=== PATIENT | female | born 1950 | race Caucasian/White ===

== ENCOUNTER 2017-07-18 10:48 | Emergency (ER) | payer BC, MEDICARE, OTHER ==
[~2017-07-18] VITALS: Ht 165.1 cm; Wt 54.4 kg
--- OUTSIDE RECORDS SUMMARY | ~2017-07-18 | XMS | Clinical Summary ---
Demographics + + + | Address | [address] | | | [place] [address] | + + + | Home Phone | | + + + | Preferred Language | Unknown | + + + | Marital Status | | + + + | Yarsani Affiliation | Unknown | + + + [...] Team Providers + +------+ + | Care Instructional Coach Name | Role | Phone | + +------+ + PP | Unavailable | + +------+ + Source Comments KARINA is fully live on both [facility] and [facility] InPatient.[facility] Allergies Not on File Current Medications Not [...] | + + + + + | INFLUENZA VACCINE | | | | | (FLU SHOT) | 7 | | | + + + + + Results Not on filefrom Last 3 Months"
--- OUTSIDE RECORDS SUMMARY | ~2017-07-18 | XMS | Clinical Summary ---
Demographics + + + | Address | [address] | | | [place] [address] | + + + | Home Phone | | + + + | Preferred Language | Unknown | + + + | Marital Status | | + + + | Congregation Affiliation | Unknown | + + + [...] Team Providers + +------+ + | Care [place] Dental Lab Technician Name | Role | Phone | + +------+ + PP | Unavailable | + +------+ + Source Comments KARINA is fully live on both [facility] and [facility] Allergies Not on File Current Medications [...]
[~2017-07-18 10:48] MED LIST: ASPIR-LOW81 MG PO; CYMBALTA60 MG PO; HUMALOG MI100 UNITS/ SUB-Q; JANUMET 50-1,01 EACH PO; LEVOTHYROXINE112 MCG PO; LOVASTATIN20 MG PO; MULTIVITAMINS1 EAC7 PO; VITAMIN B COMP1 EACH PO; VITAMIN C1000 M2 PO; VITAMIN D5000 UNIT PO
[2017-07-18] MEDS ORDERED: TOUJEO SOL300 UNIT/1 SUB-Q (11:08)
[2017-07-18] MEDS ORDERED: GLUCOPHAGE XR500 MG PO (11:09)
[2017-07-18] MEDS ORDERED: LOSARTAN POTASS50 MG PO (11:09)
[2017-07-18] MEDS ORDERED: METHYLPREDNISOLO4 M1 PO (13:37)
[2017-07-18] MEDS ORDERED: ZITHROMAX250 MG PO (13:37)
[2017-07-18] MEDS ORDERED: VENTOLIN HFA18 GM INH (13:37)
--- NOTE | 2017-07-18 19:24 | EKG ---
[facility] [address] [facility] [place], [place] [address] Signed Normal sinus rhythm Normal ECG No previous ECGs available Confirmed by SAHRA ABAD MD ([id number]) on 07/18/2017 7:24:03 PM Electronically Signed By: SAHRA ABAD MD 07/18/17 1924 PATIENT NAME: SIMÓN AVILA Electrocardiogram DATE OF : 48 PHYSICIAN: SAHRA ABAD MD REPORT #: [id number] REPORT IS CONFIDENTIAL AND NOT TO BE RELEASED WITHOUT AUTHORIZATION
== END 2017-07-18 13:52 | disposition home or self-care (01) ==
LOC: ED 10:48
DX: J44.1 Chronic obstructive pulmonary disease with (acute) exacerbation (principal); I50.9 Heart failure, unspecified; E11.40 Type 2 diabetes mellitus with diabetic neuropathy, unspecified; E03.9 Hypothyroidism, unspecified; F17.200 Nicotine dependence, unspecified, uncomplicated; Z88.5 Allergy status to narcotic agent; Z79.4 Long term (current) use of insulin; Z79.84 Long term (current) use of oral hypoglycemic drugs; Z79.899 Other long term (current) drug therapy; Z79.82 Long term (current) use of aspirin
CPT/HCPCS: 71045; 80053; 83880; 84484; 85025; 85379; 87502; 93005; 93010; 94640; 96374; 99283; J2930

== ENCOUNTER 2017-11-24 08:25 | Emergency (ER) | payer BC, MEDICARE, OTHER ==
[~2017-11-24] VITALS: Ht 165.1 cm; Wt 54.4 kg
[~2017-11-24 08:25] MED LIST changes: +GLUCOPHAGE XR500 MG PO; +LOSARTAN POTASS50 MG PO; +METHYLPREDNISOLO4 M1 PO; +TOUJEO SOL300 UNIT/1 SUB-Q; +VENTOLIN HFA18 GM INH; +ZITHROMAX250 MG PO
[2017-11-24] MEDS ORDERED: SPIRONOLACTONE25 MG PO (08:45)
[2017-11-24] MEDS ORDERED: HYDROCHLOROTHIA25 MG PO (08:45)
--- NOTE | 2017-11-25 19:49 | EKG ---
[facility] [address] [facility] [place] [address] Signed Normal sinus rhythm Possible Left atrial enlargement Borderline ECG When compared with ECG of 18-JUL-2017 10:55, No significant change was found Confirmed by SAHRA ABAD MD ([id number]) on 11/25/2017 7:49:24 PM Electronically Signed By: SAHRA ABAD MD 11/25/17 1949 PATIENT NAME: SIMÓN AVILA Electrocardiogram DATE OF : 48 PHYSICIAN: SAHRA ABAD MD REPORT #: [id number] REPORT IS CONFIDENTIAL AND NOT TO BE RELEASED WITHOUT AUTHORIZATION
== END 2017-11-24 14:41 | disposition home or self-care (01) ==
LOC: ED 08:25
DX: M25.511 Pain in right shoulder (principal); R07.9 Chest pain, unspecified; I25.10 Atherosclerotic heart disease of native coronary artery without angina pectoris; E11.40 Type 2 diabetes mellitus with diabetic neuropathy, unspecified; Z88.5 Allergy status to narcotic agent; Z79.4 Long term (current) use of insulin; Z79.899 Other long term (current) drug therapy
CPT/HCPCS: 36415; 80053; 84484; 85025; 93005; 93010; 96360; 99285; J7040

== ENCOUNTER 2017-11-28 10:25 | Emergency (ER) | payer MEDICARE, BC, OTHER ==
[~2017-11-28] VITALS: Ht 165.1 cm; Wt 54.4 kg
[~2017-11-28 10:25] MED LIST changes: +HYDROCHLOROTHIA25 MG PO; +SPIRONOLACTONE25 MG PO
[2017-11-28] MEDS ORDERED: ONDANSETRON ODT8 MG PO (15:10)
[2017-11-28] MEDS ORDERED: FLAGYL500 MG PO (15:10)
--- NOTE | 2017-11-29 12:40 | EKG ---
[facility] [address] [facility] [place] [address] Signed Normal sinus rhythm Possible Left atrial enlargement Borderline ECG When compared with ECG of 24-NOV-2017 08:45, No significant change was found Confirmed by SAHRA ABAD MD ([id number]) on 11/29/2017 12:39:47 PM Electronically Signed By: SAHRA ABAD MD 11/29/17 1240 PATIENT NAME: SIMÓN AVILA Electrocardiogram DATE OF : 48 PHYSICIAN: SAHRA ABAD MD REPORT #: [id number] REPORT IS CONFIDENTIAL AND NOT TO BE RELEASED WITHOUT AUTHORIZATION
== END 2017-11-28 17:24 | disposition home or self-care (01) ==
LOC: ED 10:25
DX: K52.9 Noninfective gastroenteritis and colitis, unspecified (principal); E11.40 Type 2 diabetes mellitus with diabetic neuropathy, unspecified; E03.9 Hypothyroidism, unspecified; Z79.4 Long term (current) use of insulin; Z88.5 Allergy status to narcotic agent; Z79.899 Other long term (current) drug therapy; Z79.84 Long term (current) use of oral hypoglycemic drugs; Z79.82 Long term (current) use of aspirin
CPT/HCPCS: 80053; 81001; 84484; 85025; 87493; 93005; 93010; 96361; 96374; 99285; J2405; J7030

== ENCOUNTER 2018-07-15 12:56 | Day surgery (SDC) | payer BC, MEDICARE, OTHER ==
[~2018-07-15 12:56] MED LIST changes: +FLAGYL500 MG PO; +ONDANSETRON ODT8 MG PO
--- NOTE | 2018-07-15 14:55 | NUR ---
07/15/18 1455 Rosalba Savage 1445- PT ARRIVES TO PACU AROUSABLE TO VOICE. PT REPORTS NO PAIN OR NAUSEA. RESP EVEN AND UNLABORED. OXYGEN SAT HIGH 90'S ON 2L VIA NC. 1452- BLOOD SUGAR 99.
--- NOTE | 2018-07-16 09:51 | OR ---
[facility] [address] [place], [place] [address] Signed DATE OF OPERATION: 07/15/2018 SURGEON: Carlos A Falcon MD PREOPERATIVE DIAGNOSES: 1. Episodic dysphagia. 2. Mitral valve insufficiency, anticipating valvuloplasty and other interventions. 3. Smoking. POSTOPERATIVE DIAGNOSES: 1. Normal appearing esophagus and GE junction. 2. Mild duodenitis with friability. PROCEDURE PERFORMED: Esophagogastroduodenoscopy with biopsy. ANESTHESIA: Intravenous sedation, fentanyl 100 mcg, Versed 4 mg. INDICATION: This 67-year-old white woman is known to me from the distant past. She has numerous medical problems including diabetes, hypertension, chronic smoking and mitral valve regurgitation, anticipating a minimally invasive mitral valve repair by Dr. Terry in [place], [place]. She continues to smoke. She is taking Prilosec for clinical complaints of reflux. She has been requested to undergo upper endoscopy prior to any anticipated cardiac operation to rule out neoplasm or other significant pathology. She understands the risks of upper endoscopy including, but not limited to bleeding, infection, and perforation. FINDINGS: There is no sign of lesion of the esophagus to account for dysphagia. Biopsies were obtained to assess for eosinophilic esophagitis, however. The stomach itself was normal. The duodenum had friability but showed no sign of ulceration. CLOtest was -15 minutes post procedure. The flap valve was normal. There was no sign of hiatal hernia. PROCEDURE: The patient was brought to the endoscopy suite and given topical lidocaine spray hypopharyngeal anesthesia. A bite block was placed. She was given intravenous sedation to the point of slurred speech and nystagmus. After satisfactory sedation, the Olympus video upper endoscope was passed in the hypopharynx. The vocal cords appeared normal. Electronically Signed By: CARLOS A FALCON MD 07/16/18 0951 PATIENT NAME: SIMÓN AVILA OPERATIVE REPORT DATE OF : 48 REPORT #: [id number] PHYSICIAN: CARLOS A FALCON MD PCP: AGNIESZKA LUNA PA-C REPORT IS CONFIDENTIAL AND NOT TO BE RELEASED WITHOUT AUTHORIZATION [facility] [address] [place], [place] [address] Signed Scope was advanced to the esophagus, throughout its length it was entirely normal. Scope was passed to the stomach, which was insufflated with air with no sign of bile within the stomach. Gastric secretions appeared normal, motility appeared normal. Rugal folds were normal. The antrum was normal as was the pylorus. The scope was passed through into the duodenum. Various manipulations were used to better characterize the duodenum. There appeared to be friability. A photograph was taken. Biopsies taken of the duodenum as well to assess for celiac disease. The scope was withdrawn to the stomach and biopsies taken of the antrum for both TREMAYNE and pathologic testing. Retroflexed view was undertaken showing a normal flap valve. The scope was straightened, withdrawn and biopsies taken of the normal-appearing distal esophagus. There was no Thomas's epithelium stricture, neoplasm or varices. Careful withdrawal of scope showed the remaining esophagus to be normal as well. Biopsies taken in the midportion to assess for eosinophilic esophagitis, though it is unlikely. The scope was removed. The patient was taken to recovery room in good condition. CONCLUSION DIAGNOSIS: No evidence of esophageal neoplasm or pathology to account for episodic dysphagia. Biopsies pending for the eosinophilic esophagitis (unlikely). PLAN: We recommend continued use of Prilosec for the time being. She will return to the ongoing care of JACK Crews and Dr. Terry, Cardiac Surgeon, [facility]. MD EDGAR Singleton/MODL /[id number] cc: [place] [address] [place], [place] [phone] Electronically Signed By: CARLOS A FALCON MD 07/16/18 0951 PATIENT NAME: SIMÓN AVILA OPERATIVE REPORT DATE OF : 48 REPORT #: [id number] PHYSICIAN: CARLOS A FALCON MD PCP: AGNIESZKA LUNA PA-C REPORT IS CONFIDENTIAL AND NOT TO BE RELEASED WITHOUT AUTHORIZATION [facility] [address] [place], [place] [address] Signed Copies: AGNIESZKA LUNA PA-C ~ Electronically Signed By: CARLOS A FALCON MD 07/16/18 0951 PATIENT NAME: SIMÓN AVILA OPERATIVE REPORT DATE OF : 48 REPORT #: [id number] PHYSICIAN: CARLOS A FALCON MD PCP: AGNIESZKA LUNA PA-C REPORT IS CONFIDENTIAL AND NOT TO BE RELEASED WITHOUT AUTHORIZATION
== END 2018-07-15 15:50 | disposition home or self-care (01) ==
LOC: DS 12:56 → OPS 12:56 → DS 14:00 → OPS 15:50
PROVIDERS: Surgery
PROC: 0DB78ZX Excision of Stomach, Pylorus, Via Natural or Artificial Opening Endoscopic, Diagnostic (ICD-10-PCS; 2018-07-15)
PROC: 0DB28ZX Excision of Middle Esophagus, Via Natural or Artificial Opening Endoscopic, Diagnostic (ICD-10-PCS; 2018-07-15)
PROC: 0DB38ZX Excision of Lower Esophagus, Via Natural or Artificial Opening Endoscopic, Diagnostic (ICD-10-PCS; 2018-07-15)
PROC: 0DB98ZX Excision of Duodenum, Via Natural or Artificial Opening Endoscopic, Diagnostic (ICD-10-PCS; principal; 2018-07-15 14:00)
DX: K29.50 Unspecified chronic gastritis without bleeding (principal); K29.80 Duodenitis without bleeding; I34.0 Nonrheumatic mitral (valve) insufficiency; E11.9 Type 2 diabetes mellitus without complications; I10 Essential (primary) hypertension; K21.9 Gastro-esophageal reflux disease without esophagitis; E03.9 Hypothyroidism, unspecified; G47.30 Sleep apnea, unspecified; F17.200 Nicotine dependence, unspecified, uncomplicated; Z88.5 Allergy status to narcotic agent; Z79.899 Other long term (current) drug therapy; Z98.890 Other specified postprocedural states
CPT/HCPCS: 99153; G0500; J2250; J3010; J7120

== ENCOUNTER 2018-08-24 15:18 | Emergency (ER) | payer BC, MEDICARE, OTHER ==
[~2018-08-24] VITALS: Ht 165.1 cm; Wt 54.4 kg
--- OUTSIDE RECORDS SUMMARY | ~2018-08-24 | XMS | Encounter Summary ---
Demographics + + + | Address | [address] | | | [place] [address] | + + + | Home Phone | | + + + | Preferred Language | Unknown | + + + | Marital Status | Single | + + + | Holiness Affiliation | 1013 | + + + | Race | Unknown | + + + | Ethnic Group | Unknown | + + + Author + + + | Author | [facility] | | | and [place] | + + + | Organization | [facility] | | [...] Team Providers + +------+ + | Care Publicity Manager Name | Role | Phone | + +------+ + | Margie Gonzalez | PCP | Unavailable | + +------+ + Reason for Visit + + + | Reason | Comments | + + + | Medication Refill | | + + + Encounter Details +--------+--------+ + + + | Date | Type | Department | Care Team | Description | +--------+--------+ + + + | 07/17/ | Refill | [facility] | Joseph Aranda | Medication Refill | | 2018 | | PULMONARY [address] | MD [address] | | | | | [place], | [place] | | | | | [place] [address] | [place] [address] | | | | | [phone] | [phone] | | | | | | | | +--------+--------+ + + + Social History + + [...] + +---------+ + | Alcohol Use | Drinks/We | oz/Week | Comments | | | ek | | | + + +---------+ + | No [...]
--- OUTSIDE RECORDS SUMMARY | ~2018-08-24 | XMS | Clinical Summary ---
Demographics + + + | Address | [address] | | | [place] [address] | + + + | Home Phone | | + + + | Preferred Language | Unknown | + + + | Marital Status | | + + + | Lutheran Affiliation | Unknown | + + + | Race | Unknown | + + + | Ethnic Group | Unknown | + + + Author + + + | Author | [facility] | + + + | Organization | [facility] | + + + | Address | Unknown | + + + | Phone | Unavailable | + + + Support + + +---------+ + | Name | Relationship | Address | Phone | + + +---------+ + | Shilpa Couch | ECON | Unknown | | + + +---------+ + Care Team Providers + +------+ + | Care Manager Mission Name | Role | Phone | + +------+ + | Pranav Kinney MD | PP | | + +------+ + Allergies Not on File Current Medications Not on file Active Problems Not on file Social History + +-------+ +--------+------+ | Tobacco [...] on file | | + + + Plan of Treatment Not on file Results Not on filefrom Last 3 Months"
--- OUTSIDE RECORDS SUMMARY | ~2018-08-24 | XMS | Clinical Summary ---
Demographics + + + | Address | [address] | | | [place] [address] | + + + | Home Phone | | + + + | Preferred Language | Unknown | + + + | Marital Status | | + + + | Alevism Affiliation | Unknown | + + + | Race | White | + + + | Ethnic Group | Not or | + + + Author + + + | Author | [facility] | + + + | Organization | [facility] | + + + | Address | Unknown | + + + | Phone | Unavailable | + + + Support + + +---------+ + | Name | Relationship | Address | Phone | + + +---------+ + | NONE,NONE | ECON | Unknown | Unavailable | + + +---------+ + Care Team Providers + +------+ + | Care Corporate Counsel Name | Role | Phone | + +------+ + PP | Unavailable | + +------+ + Source Comments KARINA is fully live on both [facility] Ambulatory and [facility] InPatient.[facility] Allergies Not on File Current Medications Not [...] | + + + Plan of Treatment + + + + + | Health Maintenance | Due Date | Last Done | Comments | + + + + + | Pneumococcal (Adult) | | | | | (1 of 2 - PCV13) | 5 | | | + + + + + | Influenza (Flu) | | | | | vaccination (#1) | 8 | | | + + + + + Results Not on filefrom Last 3 Months"
--- OUTSIDE RECORDS SUMMARY | ~2018-08-24 | XMS | Clinical Summary ---
Demographics + + + | Address | [address] | | | [place] [address] | + + + | Home Phone | | + + + | Preferred Language | Unknown | + + + | Marital Status | Single | + + + | Restorationist Affiliation | 1013 | + + + | Race | Unknown | + + + | Ethnic Group | Unknown | + + + Author + + + | Author | [facility] | | | and [place] | + + + | Organization | [facility] | | | [...] Team Providers + +------+ + | Care Corrugator Helper Name | Role | Phone | + +------+ + | Margie Gonzalez | PP | Unavailable | + +------+ + Allergies + + + + + + | Active Allergy | Reactions | Severity | Noted | Comments | | | | | Date | | + + + + + + | Oxycodone | Itching | Medium | 07/22/19 | Oxycontin | | | | | 14 | intolarant: | | | | | | Oxycodone tolerates. | + + + + + + Medications + + + +---------+------+------+-------+ | Medication | Sig | Dispensed | Refills | Star | End | Statu | | | | | | t | Date | s | | | | | | Date | | | + + + +---------+------+------+-------+ | DULoxetine | Take 60 mg by mouth | | 0 | | | Activ | | (CYMBALTA) 60 MG | Daily. | | | | | e | | capsule | | | | | | | + + + +---------+------+------+-------+ | aspirin 81 mg EC | Take 81 mg by mouth | | 0 | | | Activ | | tablet | Daily. | | | | | e | + + + +---------+------+------+-------+ | Multiple Vitamin | Take 1 tablet by | | 0 | | | Activ | | (MULTI-VITAMIN DAILY | mouth Daily. | | | | | e | | PO) | | | | | | | + + + +---------+------+------+-------+ | omeprazole | Take 20 mg by mouth | | 0 | | | Activ | | (PRILOSEC) 20 mg | every morning | | | | | e | | capsule | (before breakfast). | | | | | | + + + +---------+------+------+-------+ | atorvaSTATin | Take 80 mg by mouth | | 0 | | | Activ | | (LIPITOR) 80 MG | nightly. | | | | | e | | tablet | | | | | | | + + + +---------+------+------+-------+ | losartan (COZAAR) | Take 50 mg by mouth | | 0 | 03/2 | | Activ | | 50 mg tablet | Daily. | | | 12/10 | | e | | | | | | 18 | | | + + + +---------+------+------+-------+ | Insulin Glargine | Inject 40 Units | | 0 | | | Activ | | (TRACIE [place] SC) | under the skin | | | | | e | | | Daily. | | | | | | + + + +---------+------+------+-------+ | metFORMIN | Take 500 mg by mouth | | 0 | | | Activ | | (GLUCOPHAGE) 500 mg | 2 times daily (with | | | | | e | | tablet | breakfast & | | | | | | | | dinner). | | | | | | + + + +---------+------+------+-------+ | ALPRAZolam (XANAX) | Take 0.25 mg by | | 0 | 05/1 | | Activ | | 0.25 mg tablet | mouth as needed. | | | 6/20 | | e | | | | | | 18 | | | + + + +---------+------+------+-------+ | BD ULTRA-FINE | Inject 1 Box under | | 0 | 06/0 | | Activ | | MICRO PEN NEEDLE 32G | the skin every | | | 4/20 | | e | | X 6 MM MISC | evening. | | | 18 | | | + + + +---------+------+------+-------+ | levothyroxine | Take 100 mcg by | | 0 | 05/1 | | Activ | | (SYNTHROID) 100 mcg | mouth Daily. | | | 1/20 | | e | | tablet | | | | 18 | | | + + + +---------+------+------+-------+ | spironolactone | Take 1 tablet by | 30 | 0 | 03/2 | | Activ | | (ALDACTONE) 25 mg | mouth Daily. | tablet | | 7/20 | | e | | tablet | | | | 19 | | | + + + +---------+------+------+-------+ Active Problems + + + | Problem | Noted Date | + + + | Mitral valve regurgitation | 01/08/2018 | + + + + + | Overview: Echo [facility] 12/25/2017: Left ventricle is mildly | | enlarged with LVEDD 61 mm and LVESD 46 mm. There is mild systolic | | dysfunction with LVEF calculated at 47%.Left atrium is | | moderately enlarged. Left atrial appendage is without in situ | | thrombus/clot. Mitral valve is mild to moderately thickened with | | borderline bileafletprolapse and mild annular calcification. | | There is a central jet of severe insufficiency with high degree | | of aliasing. | + + + +---+ | Abnormal heart rate | | + +---+ | Poor circulation | | + +---+ | Hyperlipidemia | | + +---+ | Neuropathy | | + +---+ | Thyroid disease | | + +---+ | Depression | | + +---+ | GERD (gastroesophageal reflux disease) | | + +---+ | Diabetes mellitus | | + +---+ | Migraine | | + +---+ | Seizure | | + +---+ | DDD (degenerative disc disease), cervical | | + +---+ | SOB (shortness of breath) | | + +---+ | Carotid artery stenosis | | + +---+ | Functional murmur | | + +---+ + + | Overview: [facility] 11/13/2017, Proximally occluded dominant RCA | | with mild to moderate diffuse disease of the LAD and a | | significant stenosis in the midportion of the diffusely narrowed | | LCx. There is a right dominant circulation. Normal LV systolic | | function Systemic blood pressure is mildly elevated. There was | | successful Angio Seal placement to the puncture site in the right | | femoral artery. Patient will be seen in further consultation to | | discuss risks versus benefits of attempted revascularization of | | the diffusely diseased LCx. My clinical impression at this point | | is to recommend continued medical therapy. | + + + +---+ | Hypertension | | + +---+ | Osteopenia | | + +---+ | Vitamin D deficiency | | + +---+ Encounters +--------+ + + + + | Date | Type | Specialty | Care Team | Description | +--------+ + + + + | 07/17/ | Refill | | Joseph Aranda | Medication Refill | | 2018 | | | MD Avinash | | +--------+ + + + + | 06/13/ | Telephone | | Bubba Maxwell | LABS | | 2018 | | | MD Yimi | | +--------+ + + + + from Last 3 Months Family History + + +------+ + | Medical History | Relation | Name | Comments | + + +------+ + | Heart disease | Father | | | + + +------+ + | Mental illness | Mother | | | + + +------+ + | Diabetes | Sister | | | + + +------+ + + +------+ + + | Relation | Name | Status | Comments | + +------+ + + | Father | | | heart disease | + +------+ + + | Mother | | | | + +------+ + + | Sister | | Alive | DM1 | + +------+ + + | Sister | | Alive | | + +------+ + + Social History + + + [...] recent travel history available. | + + Last Filed Vital Signs + + + + | Vital Sign | Reading | Time Taken | + + + + | Blood Pressure | 124/70 | 02/14/2018 1254 PDT | + + + + | Pulse | 70 | 02/14/2018 1254 PDT | + + + + | Temperature | 36.8 C (98.2 F) | 01/10/2018 1557 PDT | + + + + | Respiratory Rate | 16 | 02/14/20181253 PDT | + + + + | Oxygen Saturation | 98% | 01/10/2018 1557 PDT | + + + + | Inhaled Oxygen | - | - | | Concentration | | | + + + + | Weight | 52.5 kg (115 lb 11.9 | 02/14/20181253 PDT | | | oz) | | + + + + | Height | 165.1 cm (5' 5") | 02/14/20181253 PDT | + + + + | Body Mass Index | 19.26 | 02/14/20181253 PDT | + + + + Plan of Treatment + + + + + | Health Maintenance | Due Date | Last Done | Comments | + + + + + | Hepatitis C | | | | | Screening | 0 | | | + + + + + | Diabetic Eye Exam | | | | | | 8 | | | + + + + + | Diabetic Foot Exam | | | | | | 8 | | | + + + + + | Vaccine: | | | | | Dtap/Tdap/Td (1 - | 9 | | | | Tdap) | | | | + + + + + | Breast Cancer | | | | | Screening (Ages | 0 | | | | 50-74) | | | | + + + + + | Colorectal Cancer | | | | | Screening | 0 | | | | (Colonoscopy) | | | | + + + + + | Vaccine: Zoster (1 | | | | | of 2) | 0 | | | + + + + + | Lung Cancer | | | | | Screening | 5 | | | + + + + + | Adult Annual | | | | | Wellness Visit | 5 | | | + + + + + | Vaccine: | | | | | Pneumococcal 65+ | 5 | | | | Low/Medium Risk (1 | | | | | of 2 - PCV13) | | | | + + + + + | Hemoglobin A1c | | 06/21/2017, 06/11/2014 | | | Screening | 8 | | | + + + + + | Vaccine: Influenza | | | | | (Season Ended) | 9 | | | + + + + + Results Not on filefrom Last 3 Months Insurance + +--------+ +--------+ +---------+--------+ | Payer | Benefi | Subscriber | Effect | Phone | Address | Type | | | t Plan | ID | efrain | | | | | | / | | Dates | | | | | | Group | | | | | | + +--------+ +--------+ +---------+--------+ | BCBS | BCBS | [id number] | | | | PPO | | | [place]ER[place] | | 017-Pr | | | | | | L FEP | | esent | | | | + +--------+ +--------+ +---------+--------+ | MEDICARE | MEDICA | [id number] | 10/22/19 | [phone] | | Medica | | | RE | | 15-Pre | 5 | | re | | | PART A | | sent | | | | | | AND B | | | | | | + +--------+ +--------+ +---------+--------+ | AETNA SENIOR | AMERIC | [id number] | 04/23/19 | [phone] | | Indemn | | SUPPLEMENTAL INS | AN | | 16-Pre | 7 | | ity | | | CONTIN | | sent | | | | | | ENTAL | | | | | | | | INS CO | | | | | | | | MDCR | | | | | | | | SUPPL | | | | | | + +--------+ +--------+ +---------+--------+ + +--------+ +--------+ + + | Guarantor Name | Accoun | Relation to | Date | Phone | Billing Address | | | t Type | Patient | of | | | | | | | | | | + +--------+ +--------+ + + | Etelvina Benitez | Person | Self [birth year] | [address] | | | al/Fam | | 1951 | [id number] | [address] [place] | | | christian | | | 6 (Home) | [phone] | + +--------+ +--------+ + + Advance Directives Patient has advance care planning documents on file. For more information, please contact:[facility] [place] [address]
--- OUTSIDE RECORDS SUMMARY | ~2018-08-24 | XMS | Clinical Summary ---
Demographics + + + | Address | [address] | | | [place] [address] | + + + | Home Phone | | + + + | Preferred Language | Unknown | + + + | Marital Status | Single | + + + | Adventist Affiliation | 1013 | + + + | Race | Unknown | + + + | Ethnic Group | Unknown | + + + Author + + + | Author | [facility] | | | and [place]ne[place] | + + + | Organization | [facility] | | | [...] Team Providers + +------+ + | Care Receiving Clerk Name | Role | Phone | + [...] | + +---+ + + | Overview: [facility] 11/13/2017, Proximally occluded dominant RCA | | [...] | | t Plan | ID | ferain | | | | | | / | | Dates | | | | | | Group | | | | | | + +--------+ +--------+ +---------+--------+ | BCBS | BCBS | [id number] | | | | PPO | | | [place] | | 017-Pr | | | | | | L FEP | | esent | | | | + +--------+ +--------+ +---------+--------+ | MEDICARE | MEDICA | [id number] | 10/22/19 | [phone] | | Medica | | | RE | | 15-Pre | 5 | | re | | | PART A | | sent | | | | | | AND B | | | | | | + +--------+ +--------+ +---------+--------+ | AETNA SENIOR | AMERIC | [id number] | 04/23/19 | [phone] | | Indemn [...] christian | | | 6 (Home) | [address] | + +--------+ +--------+ + + Advance Directives Patient has advance care planning documents on file. For more information, please contact:[facility] [place] [address]
--- OUTSIDE RECORDS SUMMARY | ~2018-08-24 | XMS | Clinical Summary ---
Demographics + + + | Address | [address] | | | [place] [address] | + + + | Home Phone | | + + + | Preferred Language | Unknown | + + + | Marital Status | | + + + | Faith Affiliation | Unknown | + + + [...] Team Providers + +------+ + | Care Military Pay Technician Name | Role | Phone | + +------+ + PP | Unavailable | + +------+ + Source Comments KARINA is fully live on both [facility] and [facility] In[facility] Allergies Not on File Current Medications [...]
--- OUTSIDE RECORDS SUMMARY | ~2018-08-24 | XMS | Encounter Summary ---
Demographics + + + | Address | [address] | | | [place] [address] | + + + | Home Phone | | + + + | Preferred Language | Unknown | + + + | Marital Status | Single | + + + | Zoroastrian Affiliation | 1013 | + + + | Race | Unknown | + + + | Ethnic Group | Unknown | + + + Author + + + | Author | [facility] | | | and [place]wayne[place] | + + + | Organization | [facility] | | | [...] Team Providers + +------+ + | Care Electronic Drafter Name | Role | Phone | + [...] | 06/13/ | Telephone | [facility] | Maxood, Bubba | LABS | | 2019 | | CARDIOLOGY [address] | MD Yimi [address] | | | | | [place], | [place] | | | | | [place] [address] | [place] [address] | | | | | [phone] | [phone] | | | | | | | [...]
--- OUTSIDE RECORDS SUMMARY | ~2018-08-24 | XMS | Encounter Summary ---
Demographics + + + | Address | [address] | | | [place] [address] | + + + | Home Phone [...] | Organization | [facility] [...] Team Providers + +------+ + | Care Maintenance Instructor Name | Role | Phone | + [...] [address] | | | | | [place], | [address] [place] | | | | | [place] [address] | [place] [address] | | | | | [phone] | | | | | | | [...]
--- OUTSIDE RECORDS SUMMARY | ~2018-08-24 | XMS | Encounter Summary ---
Demographics + + + | Address | [address] | | | [place] [address] | + + + | Home Phone [...] | Organization | [facility] [...] Providers + +------+ + | Care Healthcare Specialist Name | Role | Phone | [...] [address] | | | | | [place], | [place] | | | | | [place] [address] | [place] [address] | | | | | [phone] | [phone] | | | | | | | [...]
--- OUTSIDE RECORDS SUMMARY | ~2018-08-24 | XMS | Clinical Summary ---
Demographics + + + | Address | [address] | | | [place] [address] | + + + | Home Phone | | + + + | Preferred Language | Unknown | + + + | Marital Status | | + + + | Restorationism Affiliation | Unknown | + + + | Race | Unknown | + + + | Ethnic Group | Unknown | + + + Author + + + | Author | [facility] | + + + | Organization | [facility] | + + + | Address | Unknown | + + + | Phone | Unavailable | + + + Support + + +---------+ + | Name | Relationship | Address | Phone | + + +---------+ + | Shilpa Couch | ECON | Unknown | | + + +---------+ + Care Team Providers + +------+ + | Care Dryer Feeder Name | Role | Phone | [...]
[2018-08-24] MEDS ORDERED: IRON 100-VITAM1 EACH PO (15:48)
[2018-08-24] MEDS ORDERED: LIPITOR80 MG GT (15:48)
== END 2018-08-24 16:30 | disposition home or self-care (01) ==
LOC: ED 15:18
DX: S81.801A Unspecified open wound, right lower leg, initial encounter (principal); E11.40 Type 2 diabetes mellitus with diabetic neuropathy, unspecified; E03.9 Hypothyroidism, unspecified; F17.200 Nicotine dependence, unspecified, uncomplicated; Z90.710 Acquired absence of both cervix and uterus; Z88.5 Allergy status to narcotic agent; Z79.4 Long term (current) use of insulin; Z79.899 Other long term (current) drug therapy; X58.XXXA Exposure to other specified factors, initial encounter
CPT/HCPCS: 99282

== ENCOUNTER 2018-10-25 17:43 | Emergency (ER) | payer BC, MEDICARE, OTHER ==
[~2018-10-25] VITALS: Ht 165.1 cm; Wt 48.6 kg
[~2018-10-25 17:43] MED LIST changes: +IRON 100-VITAM1 EACH PO; +LIPITOR80 MG GT
[2018-10-25] MEDS ORDERED: CARVEDILOL12.5 MG PO (19:06)
--- NOTE | 2018-10-27 15:58 | EKG ---
[facility] [address] [facility] [place] [address] Signed Normal sinus rhythm Nonspecific T wave abnormality Abnormal ECG When compared with ECG of 28-NOV-2017 10:38, Questionable change in QRS axis Non-specific change in ST segment in Anterior leads Nonspecific T wave abnormality, worse in Inferior leads Nonspecific T wave abnormality now evident in Lateral leads Confirmed by SAHRA ABAD MD ([id number]) on 10/27/2018 3:58:05 PM Electronically Signed By: SAHRA ABAD MD 10/27/18 1558 PATIENT NAME: SIMÓN AVILA Electrocardiogram DATE OF : 48 PHYSICIAN: SAHRA ABAD MD REPORT #: [id number] REPORT IS CONFIDENTIAL AND NOT TO BE RELEASED WITHOUT AUTHORIZATION
== END 2018-10-25 21:46 | disposition home or self-care (01) ==
LOC: ED 17:43
DX: R42 Dizziness and giddiness (principal); E03.9 Hypothyroidism, unspecified; E11.40 Type 2 diabetes mellitus with diabetic neuropathy, unspecified; F17.200 Nicotine dependence, unspecified, uncomplicated; Z90.710 Acquired absence of both cervix and uterus; Z88.5 Allergy status to narcotic agent; Z79.4 Long term (current) use of insulin; Z79.82 Long term (current) use of aspirin; Z79.899 Other long term (current) drug therapy
CPT/HCPCS: 70450; 71046; 72125; 73560; 80053; 81001; 83735; 84484; 85025; 93005; 93010; 96360; 99284-25; J7030

== ENCOUNTER 2018-12-29 07:53 | Emergency (ER) | payer BC, MEDICARE, OTHER ==
[~2018-12-29] VITALS: Ht 165.1 cm; Wt 48.5 kg
[~2018-12-29 07:53] MED LIST changes: +CARVEDILOL12.5 MG PO
[2018-12-29] MEDS ORDERED: ALPRAZOLAM0.25 MG PO (08:08)
[2018-12-29] MEDS ORDERED: ATORVASTATIN CA10 MG PO (08:09)
--- NOTE | 2018-12-29 12:24 | EKG ---
[facility] [address] [facility] [place] [address] Signed Sinus bradycardia Otherwise normal ECG When compared with ECG of 25-OCT-2018 18:18, Non-specific change in ST segment in Anterior leads Nonspecific T wave abnormality no longer evident in Inferior leads Nonspecific T wave abnormality no longer evident in Lateral leads Confirmed by EZRA DO DO ([id number]) on 12/29/2018 12:24:41 PM Electronically Signed By: EZRA DO DO 12/29/18 1224 PATIENT NAME: SIMÓN AVILA Electrocardiogram DATE OF : 48 PHYSICIAN: EZRA DO DO REPORT #: [id number] REPORT IS CONFIDENTIAL AND NOT TO BE RELEASED WITHOUT AUTHORIZATION
== END 2018-12-29 10:40 | disposition home or self-care (01) ==
LOC: ED 07:53
DX: R10.11 Right upper quadrant pain (principal); E03.9 Hypothyroidism, unspecified; E11.40 Type 2 diabetes mellitus with diabetic neuropathy, unspecified; Z87.891 Personal history of nicotine dependence; Z90.710 Acquired absence of both cervix and uterus; Z88.5 Allergy status to narcotic agent; Z79.4 Long term (current) use of insulin; Z79.82 Long term (current) use of aspirin; Z79.899 Other long term (current) drug therapy
CPT/HCPCS: 76705; 80053; 84484; 85025; 93005; 93010; 99284-25

== ENCOUNTER 2019-03-02 13:28 | Emergency (ER) | payer BC, MEDICARE ==
[~2019-03-02] VITALS: Ht 165.1 cm; Wt 48.5 kg
--- OUTSIDE RECORDS SUMMARY | ~2019-03-02 | XMS | Encounter Summary ---
Demographics + + + | Address | [address] | | | [place] [address] | + + + | Home Phone | | + + + | Preferred Language | Unknown | + + + | Marital Status | Single | + + + | Rastafarian Affiliation | Unknown | + + + | Race | White | + + + | Ethnic Group | Other Race | + + + Author + + + | Author | [facility] | + + + | Organization | [facility] | + + + | Address | Unknown | + + + | Phone | Unavailable | + + + Support + + +---------+ + | Name | Relationship | Address | Phone | + + +---------+ + | Karen Unknown | ECON | Unknown | | + + +---------+ + Care Team Providers + +------+ + | Care Hip Hop Dancer Name | Role | Phone | + +------+ + PCP | Unavailable | + +------+ + Encounter Details +--------+ + + + + | Date | Type | Department | Care Team | Description | +--------+ + + + + | 10/08/ | Results | [facility] [address] | [facility] | | | 1989 | Only | [address] | [phone] | | | | | [place] | | | | | | [address] | | | | | | [phone] | | | +--------+ + + + + Social History + +-------+ +--------+------+ | Tobacco Use | Types | Packs/Day | Years | Date | | | | | Used | | + +-------+ +--------+------+ | Never Assessed | | | | | + +-------+ +--------+------+ + + + | Sex Assigned at | Date Recorded | | | | + + + | Not on file | | + + + + + + + | Job Start Date | Occupation | Industry | + + + + | Not on file | Not on file | Not on file | + + + + + + + + | Travel History | Travel Start | Travel End | + + + + + + | No recent travel history available. | + + documented as of this encounter Plan of Treatment Not on filedocumented as of this encounter Procedures + +--------+ + + + | Procedure Name | Priori | Date/Time | Associated Diagnosis | Comments | | | ty | | | | + +--------+ + + + | SURGICAL PATHOLOGY | Routin | 10/08/1989 | | Results for this | | | e | | | procedure are in the | | | | | | results section. | + +--------+ + + + documented in this encounter Results SURGICAL PATHOLOGY (10/08/1989) + + + + + + | Component | Value | Ref Range | Performed | Pathologist | | | | | At | Signature | + + + + + + | SURGICAL | SOURCE OF SPECIMEN: SEE | | [facility] | | | PATHOLOGY | RESULTS | | DEPARTMENT | | | | Preliminary | | OF | | | | History:CLINICAL | | PATHOLOGY | | | | HISTORYThe patient is a | | | | | | 38 year old female with | | | | | | a right upper lobe mass. | | | | | | Theclinician wishes | | | | | | to rule out infection | | | | | | versus Earl's | | | | | | granulomatosis.A | | | | | | diagnosis of sarcoid was | | | | | | made twenty years ago. | | | | | | GROSS | | | | | | DESCRIPTIONReceived from | | | | | | [facility] | | | | | | [facility], [place], | | | | | | [place] arethree slides | | | | | | bearing outside | | | | | | accession number | | | | | | [id number]. | | | | | | Theaccompanying | | | | | | pathology report is | | | | | | dated 08/17/89. | | | | | | MICROSCOPIC | | | | | | DESCRIPTIONOne long core | | | | | | biopsy and two small | | | | | | fragments of pulmonary | | | | | | tissue areviewed on two | | | | | | slides. All of the | | | | | | pieces of tissue show | | | | | | architecturalalteration | | | | | | with thickening of the | | | | | | alveolar septa. There is | | | | | | aproliferation of type | | | | | | II pneumocytes. Focal | | | | | | early fibrosis is | | | | | | notedwithin the alveolar | | | | | | spaces. A patchy | | | | | | lymphocytic infiltrate | | | | | | is seen. Nogranulomata, | | | | | | tumor or organisms are | | | | | | seen. The cytology smear | | | | | | shows amixture of | | | | | | alveolar lining cells, | | | | | | foamy macrophages and | | | | | | mixedinflammatory cells. | | | | | | No malignant cells are | | | | | | seen.Case dictated by: | | | | | | Iggy Parker M.D., | | | | | | Resident/opal FINAL | | | | | | DIAGNOSISANTERIOR | | | | | | SEGMENT OF RIGHT UPPER | | | | | | LOBE LUNG (NEEDLE | | | | | | BIOPSY): PNEUMONITIS, | | | | | | PREDOMINANTLY | | | | | | INTERSTITIAL WITH FOCAL | | | | | | | | | | | | ORGANIZATIONCYTOLOGY | | | | | | SMEAR: ALVEOLAR LINING | | | | | | CELLS, MACROPHAGES, AND | | | | | | INFLAMMATORY CELLS; | | | | | | NO EVIDENCE OF | | | | | | MALIGNANCY(OUTSIDE CASE) | | | | | | Case reviewed by | | | | | | Luis Felipe Farrar M.D. | | | | | | My electronic | | | | | | signature indicates that | | | | | | I have personally | | | | | | reviewed alldiagnostic | | | | | | slides, the gross and/or | | | | | | microscopic portion of | | | | | | thisreport and | | | | | | formulated the final | | | | | | diagnosis. | | | | + + + + + + + + | Specimen | + + | Other | + + + + + + + | Performing | Address | City/State/Zipcode | Phone Number | | Organization | | | | + + + + + | [facility] | [address] | [place] [address] | | | PATHOLOGY | [address] | | | + + + + + documented in this encounter Visit Diagnoses Not on filedocumented in this encounter"
--- OUTSIDE RECORDS SUMMARY | ~2019-03-02 | XMS | Encounter Summary ---
Demographics + + + | Address | [address] | | | [place] [address] | + + + | Home Phone | | + + + | Preferred Language | Unknown | + + + | Marital Status | Single | + + + | Synagogue Affiliation | 1013 | + + + | Race | Unknown | + + + | Ethnic Group | Unknown | + + + Author + + + | Author | [facility] | | | and [place]way[place] | + + + | Organization | [facility] | | | and [place] | + + + | Address | [...] Providers + +------+ + | Care Cold Press Operator Name | Role | Phone | + +------+ + | Margie Gonzalez | PCP | | + +------+ + Reason for Visit Auth/Cert +--------+--------+ + + + + | Status | Reason | Specialty | Diagnoses / | Referred By | Referred To | | | | | Procedures | Contact | Contact | +--------+--------+ + + + + | | | | Diagnoses | | | | | | | CAD & CHF, | | | | | | | FEMORAL | | | | | | | APPROACH | | | | | | | Procedures | | | | | | | CV LHC | | | +--------+--------+ + + + + Encounter Details +--------+---------+ + + + | Date | Type | Department | Care Team | Description | +--------+---------+ + + + | 11/13/ | Surgery | [facility] | [facility]ba Maxwell | CV [facility] | | 2017 | | MED CTR CV INTRA OP | MD Yimi [address] | | | | | [address] | [place] [facility] | | | | | [place] | [place] [address] | | | | | [address] | [phone] | | | | | [phone] | | | +--------+---------+ + + + [...] + + + | Blood Pressure | 150/73 | 11/13/2017 12:15 PM | | | | | PDT | | + + + + + | Pulse | 79 | 11/13/2017 12:15 PM | | | | | PDT | | + + + + + | Temperature | 36.8 C (98.2 F) | 11/13/2017 8:23 AM | | | | | PDT | | + + + + + | Respiratory Rate | 14 | 11/13/2017 11:25 AM | | | | | PDT | | + + + + + | Oxygen Saturation | 98% | 11/13/2017 12:15 PM | | | | | PDT | | + + + + + | Inhaled Oxygen | - | - | | | Concentration | | | | + + + + + | Weight | 54.1 kg (119 lb 4.3 | 11/13/2017 6:54 AM | | | | oz) | PDT | | + + + + + | Height | 165.1 cm (5' 5") | 11/13/2017 6:54 AM | | | | | PDT | | + + + + + | Body Mass Index | 19.85 | 11/13/2017 6:54 AM | | | | | PDT | | + + + + + documented in this encounter Discharge Instructions Instructions Gisella Ramos RN - 11/13/2017 Recovery After Procedural Sedation (Adult) You have been given medicine by vein to make you sleep during your surgery. This may have i ncluded both a pain medicine and sleeping medicine. Most of the effects have worn off. But y ou may still have some drowsiness for the next 6 to 8 hours. Home care Follow these guidelines when you get home: For the next 8 hours, you should be watched by a responsible adult. This person should m natan sure your condition is not getting worse. Don't drink any alcoholfor the next [address], operate dangerous machinery, or make important business or personal decisio nsduring the next 24 hours. Note: Your healthcare provider may tell you not to take any medicine by mouth for pain or s leep in the next 4 hours. These medicines may react with the medicines you were given in the hospital. This could cause a much stronger response than usual. Follow-up care Follow up with your healthcare provider if you are not alert and back to your usual level o f activity within 12 hours. When to seek medical advice Call your healthcare provider right away if any of these occur: Drowsiness gets worse Weakness or dizziness gets worse Repeated vomiting You can't be awakened Date Last Reviewed: 02/08/201619997448-1390 [employer]. [address] [place], [place] [id number]. All righ ts reserved. This information is not intended as a substitute for professional medical care. Always follow your healthcare professional's instructions. documented in this encounter Medications at Time of Discharge + + + +---------+ + + | Medication | Sig | Dispensed | Refills | Start | End Date | | | | | | Date | | + + + +---------+ + + | ALPRAZolam (XANAX) | Take 0.25 mg by | | 0 | 09/06/19 | | | 0.25 mg tablet | mouth as needed. | | | 18 | | + + + +---------+ + + | aspirin 81 mg EC | Take 81 mg by mouth | | 0 | | | | tablet | Daily. | | | | | + + + +---------+ + + | BD ULTRA-FINE | Inject 1 Box under | | 0 | 09/25/19 | | | MICRO PEN NEEDLE 32G | the skin every | | | 18 | | | X 6 MM MISC | evening. | | | | | + + + +---------+ + + | DULoxetine | Take 60 mg by mouth | | 0 | | | | (CYMBALTA) 60 MG | Daily. | | | | | | capsule | | | | | | + + + +---------+ + + | levothyroxine | Take 100 mcg by | | 0 | 09/01/19 | | | (SYNTHROID) 100 mcg | mouth Daily. | | | 18 | | | tablet | | | | | | + + + +---------+ + + | losartan (COZAAR) | Take 50 mg by mouth | | 0 | 07/19/19 | | | 50 mg tablet | Daily. | | | 18 | | + + + +---------+ + + | metFORMIN | Take 500 mg by mouth | | 0 | | | | (GLUCOPHAGE) 500 mg | 2 times daily (with | | | | | | tablet | breakfast & | | | | | | | dinner). | | | | | + + + +---------+ + + | Multiple Vitamin | Take 1 tablet by | | 0 | | | | (MULTI-VITAMIN DAILY | mouth Daily. | | | | | | PO) | | | | | | + + + +---------+ + + | omeprazole | Take 20 mg by mouth | | 0 | | | | (PRILOSEC) 20 mg | every morning | | | | | | capsule | (before breakfast). | | | | | + + + +---------+ + + | atorvaSTATin | Take 80 mg by mouth | | 0 | | | | (LIPITOR) 80 MG | nightly. | | | | 9 | | tablet | | | | | | + + + +---------+ + + | | Take 25 mg by mouth | | 0 | 11/08/19 | 10/25/201 | | hydroCHLOROthiazide | Daily. | | | 18 | 8 | | 25 mg tablet | | | | | | + + + +---------+ + + | Insulin Glargine | Inject 40 Units | | 0 | | | | (TRACIE [place]) | under the skin | | | | 9 | | | Daily. | | | | | + + + +---------+ + + | spironolactone | Take 25 mg by mouth | | 0 | 11/08/19 | | | (ALDACTONE) 25 mg | Daily. | | | 18 | 8 | | tablet | | | | | | + + + +---------+ + + documented as of this encounter Plan of Treatment Not on filedocumented as of this encounter Procedures + +--------+ + + + | Procedure Name | Priori | Date/Time | Associated Diagnosis | Comments | | | ty | | | | + +--------+ + + + | POC GLUCOSE | Routin | 11/13/2017 | | Results for this | | | e | 10:28 AM | | procedure are in the | | | | PDT | | results section. | + +--------+ + + + | CV LHC | Routin | 11/13/2017 | | Results for this | | | e | 9:16 AM | | procedure are in the | | | | PDT | | results section. | + +--------+ + + + | POC GLUCOSE | Routin | 11/13/2017 | | Results for this | | | e | 7:33 AM | | procedure are in the | | | | PDT | | results section. | + +--------+ + + + documented in this encounter Results POC Glucose (11/13/2017 10:28 AM PDT) + +-------+ + + + | Component | Value | Ref Range | Performed | Pathologist | | | | | At | Signature | + +-------+ + + + | Glucose, | 109 | 70 - 109 mg/dL | [facility] | | | [facility] | | | | | | [facility] | | | | | | [facility] - | | | | | | LABORATORY | | + +-------+ + + + + + | Specimen | + + | Blood | + + + + + + + | Performing | Address | City/State/Zipcode | Phone Number | | Organization | | | | + + + + + | [facility] | [address] | [place] | [phone] | | [facility] | | [address] | | | - LABORATORY | | | | + + + + + CV CARDIAC PROCEDURE (11/13/2017 9:16 AM PDT) + + | Specimen | + + | | + + + + + | Narrative | Performed At | + + + | B[facility] Geller | [facility] | | MD Hans 11/27/2017 14:01 CARDIAC CATHETERIZATION and CORONARY | | | ANGIOGRAPHY PATIENT NAME/: Etelvina Benitez, (1950) | | | OF PROCEDURE: 11/13/2017 | | | CONTAINER PACKER OPERATOR: Bubba Maxwell MD, PhD, [facility] PROCEDURES | | | PERFORMED:Coronary AngiographyLeft Heart CatheterizationLeft | | | Ventriculography Indications: Coronary artery disease DESCRIPTION OF | | | PROCEDURE: Informed consent was obtained from the patient, and a | | | time-out was performed to verify the patient's identification and | | | planned procedure. The patient's right groin was then prepped and | | | draped in the usual sterile fashion, and anesthetized with 1% | | | lidocaine. For arterial access modified Seldinger technique was used | | | to place a 6 Fr. sheath in the right femoral artery.. Right heart | | | catheterization was not performed on this patient. After crossing | | | the aortic valve, left ventriculography was performed in the SUAREZ | | | projection. Selective coronary angiogram was then performed in | | | several sagittal and oblique projections. JL-4, 3DRC and pigtail | | | diagnostic catheters were used for this procedure. The patient | | | received a total of 1 mg of Versed and 75 mcg of fentanyl | | | intravenously for conscious sedation during the procedure. A total | | | of 151 mL Omnipaque 350 contrast was utilized. The procedure had no | | | immediate complications. At the conclusion of the procedure, the | | | sheath was removed and hemostasis obtained with an Angio Seal. | | | Distal pulses were present and unchanged. FINDINGS: Hemodynamics: | | | Ao - 145/62 mm Hg with a mean of 90 to mm HgLV - 155/8 mm HgLVEDP - 20 | | | mm Hg Left ventriculography: The left ventricle is of normal size | | | with mild posterior basal hypokinesis and overall preserved systolic | | | function. LVEF is estimated at 60%. There is severe mitral valve | | | regurgitation noted. Left main artery: The left main artery is a | | | medium caliber vessel that bifurcates into the left anterior | | | descending artery and left circumflex artery. Left main artery has | | | minimal luminal irregularities, but no significant obstructive | | | atherosclerotic disease is seen. Left anterior descending artery: | | | The left anterior descending artery is a small caliber vessel that | | | wraps around the apex and gives rise to 2 diagonal branches. The | | | vessel has moderate diffuse plaquing with no flow-limiting lesions | | | noted. It gives rise to 2 diagonal branches. Left circumflex artery: | | | The left circumflex artery is a medium caliber vessel that is non | | | dominant. The vessel has moderate to severe diffuse disease with a | | | focal 90% lesion in its midportion. It gives rise to 2 OM branches. | | | Right coronary artery: The right coronary artery is a small caliber | | | vessel that is dominant. The vessel has severe disease and is | | | occluded proximally with moderate degree of left to right collateral | | | flow. CONCLUSIONS:1. Proximally occluded dominant RCA with mild | | | to moderate diffuse disease of the LAD and a significant stenosis in | | | the midportion of the diffusely narrowed LCx.2. There is a right | | | dominant circulation.3. Normal LV systolic function with mild | | | posterobasal hypokinesis and severe MR.4. Systemic blood pressure is | | | mildly elevated.5. There was successful Angio Seal placement to the | | | puncture site in the right femoral artery.6. Patient will be seen in | | | further consultation to discuss possible cardiac surgery for mitral | | | valve disease and coronary disease. Moderate sedation start time: | | | 08:40. Moderate sedation stop time: 09:10. IBubba | | | MD Hans, PhD, FACC reviewed the patient's pre-sedation assessment | | | and vital signs, supervised and directed the Moderate Sedation from | | | administration to patient stabilization for recovery. Electronically | | | signed by: Bubba Maxwell MD, PhD, FACC on 11/13/2017 at 13:09 | | | CC TO PRIMARY CARE PROVIDER:JACK Faustin | | |valve regurgitation noted. | | | | | |Left main artery: The left main artery is a medium caliber | | |vessel that bifurcates into the left anterior descending artery | | |and left circumflex artery. Left main artery has minimal luminal | | |irregularities, but no significant obstructive atherosclerotic | | |disease is seen. | | | | | |Left anterior descending artery: The left anterior descending | | |artery is a small caliber vessel that wraps around the apex and | | |gives rise to 2 diagonal branches. The vessel has moderate | | |diffuse plaquing with no flow-limiting lesions noted. It gives | | |rise to 2 diagonal branches. | | | | | |Left circumflex artery: The left circumflex artery is a medium | | |caliber vessel that is non dominant. The vessel has moderate to | | |severe diffuse disease with a focal 90% lesion in its midportion. | | | It gives rise to 2 OM branches. | | | | | |Right coronary artery: The right coronary artery is a small | | |caliber vessel that is dominant. The vessel has severe disease | | |and is occluded proximally with moderate degree of left to right | | |collateral flow. | | | | | | | | |CONCLUSIONS: | | |1. Proximally occluded dominant RCA with mild to moderate diffuse | | |disease of the LAD and a significant stenosis in the midportion | | |of the diffusely narrowed LCx. | | |2. There is a right dominant circulation. | | |3. Normal LV systolic function with mild posterobasal hypokinesis | | |and severe MR. | | |4. Systemic blood pressure is mildly elevated. | | |5. There was successful Angio Seal placement to the puncture site | | |in the right femoral artery. | | |6. Patient will be seen in further consultation to discuss | | |possible cardiac surgery for mitral valve disease and coronary | | |disease. | | | | | | | | |Moderate sedation start time: 08:40. Moderate sedation stop | | |time: 09:10. Bubba Marquez MD, PhD, FACC reviewed the | | |patient's pre-sedation assessment and vital signs, supervised and | | |directed the Moderate Sedation from administration to patient | | |stabilization for recovery. | | | | | | | | | | | | | | | | | |CC TO PRIMARY CARE PROVIDER: | | |JACK Faustin | | | | | + + + + +---------+ + + | Performing | Address | City/State/Zipcode | Phone Number | | Organization | | | | + +---------+ + + | [facility] | | | | + +---------+ + + POC Glucose (11/13/2017 7:33 AM PDT) + +---------+ + + + | Component | Value | Ref Range | Performed | Pathologist | | | | | At | Signature | + +---------+ + + + | Glucose, | 130 (H) | 70 - 109 mg/dL | [facility] | | [facility] | | [facility] | [facility] | | | | | | [facility] - | | | | | | LABORATORY | | + +---------+ + + + + + | Specimen | + + | Blood | + + + + + + + | Performing | Address | City/State/Zipcode | Phone Number | | Organization | | | | + + + + + | [facility] | [address] | [place] | [phone] | | [facility] | | [address] | | | - LABORATORY | | | | + + + + + documented in this encounter Visit Diagnoses Not on filedocumented in this encounter Administered Medications + +--------+---------+------+------+------+ | Medication Order | MAR | Action | Dose | Rate | Site | | | Action | Date | | | | + +--------+---------+------+------+------+ + +---+ | acetaminophen (TYLENOL) tablet | | | 650 mg 650 mg, Oral, EVERY 6 | | | HOURS PRN, Pain, Fever, Starting | | | Sun11/13/17 at 0928, | | | Post-op/Phase II | | + +---+ | | | + +---+ + +-------+ +--------+---+---+ | fentaNYL (PF) injection ONCE | Given | 11/14/19 | 25 mcg | | | | PRN, Starting Sun11/13/17 at | | 18 9:03 | | | | | 0838, Intra-op | | AM PDT | | | | + +-------+ +--------+---+---+ +-------+ +--------+---+---+ | Given | 11/14/19 | 50 mcg | | | | | 18 8:38 | | | | | | AM PDT | | | | +-------+ +--------+---+---+ +---+---+ | | | +---+---+ + +-------+ +---------+---+---+ | iohexol (OMNIPAQUE 350) 350 | Given | 11/14/19 | 151 mLs | | | | mg/mL injection ONCE PRN, | | 18 9:02 | | | | | Starting 11/13/17 at 0902, | | AM PDT | | | | | Intra-op | | | | | | + +-------+ +---------+---+---+ +---+---+ | | | +---+---+ + +-------+ +--------+---+ + | lidocaine 1% injection ONCE | Given | 11/14/19 | 10 mLs | | Surgical | | PRN, Starting 11/13/17 at | | 18 8:40 | | | Site | | 0840, Intra-op | | AM PDT | | | | + +-------+ +--------+---+ + + +---+ | | | + +---+ | lidocaine 1%-EPINEPHrine | | | 1:100,000 injection 5 mL 5 mL, | | | Infiltration, ONCE PRN, for | | | oozing at cardiac cath site, | | | Starting 11/13/17 at 0928, For | | | 1 dose, For continued oozing | | | after sheath removal despite | | | pressure dressing and manual | | | pressure. Inject to affected area | | | x 1 followed by 10 minutes of | | | manual compression., | | | Post-op/Phase II | | + +---+ | | | + +---+ + +-------+ +------+---+---+ | midazolam (VERSED) 1 mg/mL | Given | 11/14/19 | 1 mg | | | | injection ONCE PRN, Starting Tu | | 18 8:38 | | | | | 11/13/17 at 0838, Intra-op | | AM PDT | | | | + +-------+ +------+---+---+ + +---+ | | | + +---+ | nitroglycerin (NITROSTAT) SL | | | tablet 0.4 mg 0.4 mg, | | | Sublingual, EVERY 5 MIN PRN, | | | Chest pain, Starting 11/13/17 | | | at 0928, May give up to 3 doses. | | | Notify physician after 2nd dose | | | given. Hold for SBP<100, | | | Post-op/Phase II | | + +---+ | | | + +---+ | ondansetron (ZOFRAN) injection | | | 4-8 mg 4-8 mg, Intravenous, | | | EVERY 6 HOURS PRN, Nausea, | | | Vomiting, Starting 11/13/17 at | | | 0928, Post-op/Phase II | | + +---+ | | | + +---+ | sodium chloride 0.9% (NS) | | | infusion at 125 mL/hr, | | | Intravenous, CONTINUOUS, Starting | | | 11/13/17 at 0745, For | | | procedure only, not to exceed 1 | | | liter., Pre-op | | + +---+ | | | + +---+ documented in this encounter
--- OUTSIDE RECORDS SUMMARY | ~2019-03-02 | XMS | Encounter Summary ---
Demographics + + + | Address | [address] | | | [place] [address] | + + + | Home Phone | | + + + | Preferred Language | Unknown | + + + | Marital Status | Single | + + + | Worship Affiliation | 1013 | + + + | Race | Unknown | + + + | Ethnic Group | Unknown | + + + Author + + + | Author | [facility] | | | and Dwayneana | + + + | Organization | [facility] | | | and Dwayneana | [...] Team Providers + +------+ + | Care Concrete Stone Fabricating Supervisor Name | Role | Phone | + [...] | | | | | | | belkis | | | | | | | Procedures | | | | | | | CV | | | | | | | ECHO/BELKIS/ICE | | | +--------+--------+ + + + + Encounter Details +--------+---------+ + + + | Date | Type | Department | Care Team | Description | +--------+---------+ + + + | 12/25/ | Surgery | [facility] | Bubba Ornelas | CV ECHO/BELKIS | | 2017 | | MED CTR CV INTRA OP | MD Yimi [address] | | | | | [address] | [address] [place] | | | | | [place] | [place] [address] | | | | | [address] | [phone] | | | | | [phone] | | | +--------+---------+ + + + [...] + + + | Blood Pressure | 122/58 | 12/25/2017 8:00 AM | | | | | PDT | | + + + + + | Pulse | 85 | 12/25/2017 8:00 AM | | | | | PDT | | + + + + + | Temperature | 36.3 C (97.3 F) | 12/25/2017 7:00 AM | | | | | PDT | | + + + + + | Respiratory Rate | 16 | 12/25/2017 6:27 AM | | | | | PDT | | + + + + + | Oxygen Saturation | 96% | 12/25/2017 8:00 AM | | | | | PDT | | + + + + + | Inhaled Oxygen | - | - | | | Concentration | | | | + + + + + | Weight | 50.6 kg (111 lb 8.8 | 12/25/2017 6:27 AM | | | | oz) | PDT | | + + + + + | Height | 165.1 cm (5' 5") | 12/25/2017 6:27 AM | | | | | PDT | | + + + + + | Body Mass Index | 18.56 | 12/25/2017 6:27 AM | | | | | PDT | | + + + + + documented in this encounter Medications at Time of Discharge + + + +---------+ + + | Medication | Sig | Dispensed | Refills | Start | End Date | | | | | | Date | | + + + +---------+ + + | ALPRAZolam (XANAX) | Take 0.25 mg by | | 0 | / | | | 0.25 mg tablet | [...] | 0 | 11/08/19 | | | hydroCHLOROthiazide | Daily. 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 | + +--------+ + + + | CV TTE/BELKIS | Routin | 12/25/2017 | | Results for this | | | e | 7:35 AM | | procedure are in the | | | | PDT | | results section. | + +--------+ + + + | POC GLUCOSE | Routin | 12/25/2017 | | Results for this | | | e | 6:53 AM | | procedure are in the | | | | PDT | | results section. | + +--------+ + + + | ECG 12 LEAD | Routin | 12/25/2017 | | Results for this | | | e | 6:50 AM | | procedure are in the | | | | PDT | | results section. | + +--------+ + + + documented in this encounter Results ECHO Transesophageal (BELKIS) (12/25/2017 7:42 AM PDT) + +--------+ + [...] | + + --+ | | [facility] | | Transesophageal Echocardiography Report (BELKIS) Demographics Patient | | | Name [facility] Room Number [facility] | | | FLIP WIGGINS | | | SHAE Patient Number [id number] Date of Study | | | 12/25/2017 Visit Number [id number] Accession | | | [id number] Interpreting YIMI ORNELAS MD Number | | | Physician Date of 1950 | | | Referring YIMI ORNELAS MD | | | Physician Age 67 | | | year(s) 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 For the actual BELKIS | | result, please review the echo result on the Cardio tab. | + + + + + | Narrative | Performed At | + + + | This report | [facility] | | was auto-finalized due to the BELKIS being performed in this invasive | | | lab. For the actual BELKIS result, please review the echo result on the | | | Cardio tab. | | + + + + +---------+ + + | Performing | Address | City/State/Zipcode | Phone Number | | Organization | | | | + +---------+ + + | [facility] | | | | + +---------+ + + POC Glucose (12/25/2017 6:53 AM PDT) + +---------+ + + + | Component | Value | Ref Range | Performed | Pathologist | | | | | At | Signature | + +---------+ + + + | Glucose, | 144 (H) | 70 - 109 mg/dL | [...] [address] | [place] | [phone] | | [facility] | | [id number] | | | - LABORATORY | | | | + + + + + ECG 12 lead (12/25/2017 6:50 AM PDT) + + + + + + | Component | Value | Ref Range | Performed | Pathologist | | | | | At | Signature | + + + + + + | VENTRICULAR | 73 | BPM | [facility] | | | RATE EKG | | | | | + + + + + + | ATRIAL RATE | 73 | BPM | [facility] | | + + + + + + | P-R | 144 | ms | [facility] | | | INTERVAL | | | | | + + + + + + | QRS | 90 | ms | [facility] | | | DURATION | | | | | + + + + + + | Q-T | 422 | ms | [facility] | | | INTERVAL | | | | | + + + + + + | Q-T | 464 | ms | [facility] | | | INTERVAL | | | | | | (CORRECTED) | | | | | + + + + + + | P WAVE AXIS | 67 | degrees | [facility] | | + + + + + + | QRS AXIS | 77 | degrees | [facility] | | + + + + + + | T AXIS | 53 | degrees | [facility] | | + + + + + + | INTERPRETAT | Normal sinus | | [facility] | | | ION TEXT | rhythmNormal ECGWhen | | | | | | compared with ECG of | | | | | | 13-AUG-2017 | | | | | | 13:25,Nonspecific T wave | | | | | | abnormality no longer | | | | | | evident in Inferior | | | | | | leadsConfirmed by | | | | | | FERNANDO EASTMAN MD ([id number]) | | | | | | on 12/26/2017 7:04:22 AM | | | | + + + + + + + + | Specimen | + + | | + + + + + | Narrative | Performed At | + + + | | | + + + + +---------+ + + | Performing | Address | City/State/Zipcode | Phone Number | | Organization | | | | + +---------+ + + | [facility] | | | | + +---------+ + + documented in this encounter Visit Diagnoses Not on filedocumented in this encounter Administered Medications + +--------+ +---------+------+------+ | Medication Order | MAR | Action | Dose | Rate | Site | | | Action | Date | | | | + +--------+ +---------+------+------+ | benzocaine (HURRICAINE) 20% | Given | 12/26/19 | 1 spray | | | | non-aerosol spray ONCE PRN, | | 18 7:08 | | | | | Starting 12/25/17 at 0708, | | AM PDT | | | | | Intra-op | | | | | | + +--------+ +---------+------+------+ +---+---+ | | | +---+---+ + +-------+ +--------+---+---+ | fentaNYL (PF) injection ONCE | Given | 12/26/19 | 50 mcg | | | | PRN, Starting e 12/25/17 at 0714, | | 18 7:14 | | | | | Intra-op | | AM PDT | | | | + +-------+ +--------+---+---+ +---+---+ | | | +---+---+ + +-------+ +--------+---+---+ | lidocaine (XYLOCAINE) 2% | Given | 12/26/19 | 10 mLs | | | | viscous solution ONCE PRN, | | 18 7:08 | | | | | Starting 12/25/17 at 0708, | | AM PDT | | | | | Intra-op | | | | | | + +-------+ +--------+---+---+ +---+---+ | | | +---+---+ + +-------+ +------+---+---+ | midazolam (VERSED) 1 mg/mL | Given | 12/26/19 | 1 mg | | | | injection ONCE PRN, Starting Tue | | 18 7:20 | | | | | 12/25/17 at 0714, Intra-op | | AM PDT | | | | + +-------+ +------+---+---+ +-------+ +------+---+---+ | Given | 12/26/19 | 1 mg | | | | | 18 7:14 | | | | | | AM PDT | | | | +-------+ +------+---+---+ +---+---+ | | | +---+---+ + +---------+ +---+-------+---+ | sodium chloride 0.9% (NS) | New Bag | 12/26/19 | | 125 | | | infusion at 125 mL/hr, | | 18 6:54 | | mL/hr | | | Intravenous, CONTINUOUS, Starting | | AM PDT | | | | | 12/25/17 at 0645, For | | | | | | | procedure only, not to exceed 1 | | | | | | | liter., Pre-op | | | | | | + +---------+ +---+-------+---+ +---+---+ | | | +---+---+ documented in this encounter
--- OUTSIDE RECORDS SUMMARY | ~2019-03-02 | XMS | Encounter Summary ---
Demographics + + + | Address | [address] | | | [place] [address] | + + + | Home Phone | | + + + | Preferred Language | Unknown | + + + | Marital Status | Single | + + + | Jewish Affiliation | 1013 | + + + | Race | Unknown | + + + | Ethnic Group | Unknown | + + + Author + + + | Author | [facility] | | | and Dwayneana | + + + | Organization | [facility] | | | and Dwayneana [...] Team Providers + +------+ + | Care Road Commissioner Name | Role | Phone | + +------+ + | Matt Kinney MD | PCP | | + +------+ + Encounter Details +--------+ + + + + | Date | Type | Department | Care Team | Description | +--------+ + + + + | 08/14/ | Orders Only | [facility] | Javon Ivy | Lumbar radiculopathy | | 2013 | | PHYSIATRY [address] | (Primary Dx) | | | | [place], | [place], [place] | | | | | [place] [address] | [address] | | | | | [phone] | | | +--------+ + + + [...] on filedocumented as of this encounter Results FL EZEKIEL Lumbar Transforaminal (08/26/2013 4:06 PM PDT) + + | Specimen | + + | | + + + + + | Narrative | Performed At | + + + | 08/26/13 Right L4-L5 and Left L5-K7Szjoknmjgibitk Epidural Steroid | [facility] | | Injections Diagnosis: Lumbar radiculopathy ICD-9 Code 724.4 | [facility] | | Etelvina Benitez presents to the fluoroscopy suite for | [facility] | | fluoroscopically-guided right L4-L5 and left L5-S1 transforaminal | - IMAGING | | epidural steroid injections as part of conservative management for | | | chronic pain with lumbar radiculopathy and degenerative disk | | | disease. After informed consent was obtained, the patient lay in the | | | prone position on the fluoroscopy table. The areas were identified | | | under fluoroscopic guidance. The areas were prepped and draped in | | | sterile fashion. A 25-gauge, 1.5-inch needle was inserted into each | | | region and approximately 3 mL of buffered 1% lidocaine was infused. | | | Then, a 22-gauge spinal needle was inserted into the posterior | | | superior transforaminal space bilaterally and advanced into the | | | epidural space under fluoroscopic guidance. Confirmation into the | | | epidural space was obtained with infusion of approximately 1 mL of | | | Omnipaque contrast which showed epidural flow as well as nerve sheath | | | flow. Then, a combination of 2 mL of 1% lidocaine and 2 mL of 6 | | | mg/mL Celestone was infused, divided between the two sides. The | | | patient tolerated the procedure well without complications. Pre- and | | | post-procedure blood pressures were stable. The patient was given | | | verbal as well as written follow-up instructions. Prior to the | | | start of the procedure, the following were performed and/or | | | verified, including correct patient identity, correct site/side marked | | | and visible, agreement on the procedure to be done, correct patient | | | positioning and an accurate procedure consent form. Any safety | | | precautions based on clinical history and/or medication use have | | | been addressed. I personally performed the procedure above. | | | Estimated blood loss: Minimal Complications: None Findings: As | | | expected Anesthesia: Local 1% Lidocaine | | + + + + + | Procedure Note | + + | Javon Ivy MD - 08/26/2013 4:43 PM PDT 08/26/13Right L4-L5 and Left | | L5-U6Zbnjwzhipyrihv Epidural Steroid InjectionsDiagnosis: Lumbar radiculopathyICD-9 Code | | 724.4Deborah Cheyenne Pulse presents to the fluoroscopy suite for fluoroscopically-guided | | right L4-L5 and left L5-S1 transforaminal epidural steroid injections as part of | | conservative management for chronic pain with lumbar radiculopathy and degenerative disk | | disease. After informed consent was obtained, the patient lay in the prone position on | | the fluoroscopy table. The areas were identified under fluoroscopic guidance. The areas | | were prepped and draped in sterile fashion. A 25-gauge, 1.5-inch needle was inserted | | into each region and approximately 3 mL of buffered 1% lidocaine was infused. Then, a | | 22-gauge spinal needle was inserted into the posterior superior transforaminal space | | bilaterally and advanced into the epidural space under fluoroscopic guidance. | | Confirmation into the epidural space was obtained with infusion of approximately 1 mL of | | Omnipaque contrast which showed epidural flow as well as nerve sheath flow. Then, a | | combination of 2 mL of 1% lidocaine and 2 mL of 6 mg/mL Celestone was infused, divided | | between the two sides. The patient tolerated the procedure well without complications. | | Pre- and post-procedure blood pressures were stable. The patient was given verbal as | | well as written follow-up instructions. Prior to the start of the procedure, the | | following were performed and/or verified, including correct patient identity, correct | | site/side marked and visible, agreement on the procedure to be done, correct patient | | positioning and an accurate procedure consent form. Any safety precautions based on | | clinical history and/or medication use have been addressed. I personally performed the | | procedure above.Estimated blood loss: MinimalComplications: NoneFindings: As | | expectedAnesthesia: Local 1% Lidocaine | + + + + + + + | Performing | Address | City/State/[facility] | Phone Number | | Organization | | | | + + + + + | [facility] | [address] | [place], [place] | [phone] | | [facility] | | [address] | | | - IMAGING | | | | + + + + + documented in this encounter Visit Diagnoses + + | Diagnosis | + + | Lumbar radiculopathy - Primary Thoracic or lumbosacral neuritis or radiculitis, | | unspecified | + + documented in this encounter"
--- OUTSIDE RECORDS SUMMARY | ~2019-03-02 | XMS | Encounter Summary ---
Demographics + + + | Address | [address] | | | [place] [address] | + + + | Home Phone | | + + + | Preferred Language | Unknown | + + + | Marital Status | Single | + + + | Islam Affiliation | 1013 | + + + | Race | Unknown | + + + | Ethnic Group | Unknown | + + + Author + + + | Author | [facility] | | | and Dwayneana | + + + | Organization | [facility] | | | and Dwayneana [...] Team Providers + +------+ + | Care Car Filler Name | Role | Phone | + [...] | | | | | | CAD | | | | | | | Procedures | | | | | | | PA CATH | | | | | | | PLACE/CORON | | | | | | | ANGIO, IMG | | | | | | | SUPER/INTERP | | | | | | | ,W LEFT | | | | | | | HEART | | | | | | | VENTRICULOGR | | | | | | | APHY CV | | | | | | | DIAGNOSTIC | | | | | | | CARDIAC CATH | | | +--------+--------+ + + + + Encounter Details +--------+ + + + + | Date | Type | Department | Care Team | Description | +--------+ + + + + | 07/28/ | Hospital | [facility] | Bubba Maxwell | Coronary artery | | 2014 | Encounter | MED CTR CV INTRA OP | MD Yimi [address] | disease involving | | | | [address] [place] | elem coronary | | | | [place], [place] | [place] [address] | artery without | | | | [address] | [phone] | angina pectoris | | | | [phone] | | (Primary Dx); CAD | | | | | | (coronary artery | | | | | | disease) | +--------+ + + + + Social History + + + +--------+------+ | Tobacco Use | Types | Packs/Day | Years | Date | | | | | Used | | + + + +--------+------+ | Current Every Day | Cigarettes | 1.5 | 37 | | | [...] + + + | Blood Pressure | 130/66 | 07/28/2014 12:00 PM | | | | | PDT | | + + + + + | Pulse | 74 | 07/28/2014 12:00 PM | | | | | PDT | | + + + + + | Temperature | 36.2 C (97.2 F) | 07/28/2014 7:49 AM | | | | | PDT | | + + + + + | Respiratory Rate | 20 | 07/28/2014 12:00 PM | | | | | PDT | | + + + + + | Oxygen Saturation | 97% | 07/28/2014 12:00 PM | | | | | PDT | | + + + + + | Inhaled Oxygen | - | - | | | Concentration | | | | + + + + + | Weight | 70.8 kg (156 lb) | 07/28/2014 7:49 AM | | | | | PDT | | + + + + + | Height | 165.1 cm (5' 5") | 07/28/2014 7:49 AM | | | | | PDT | | + + + + + | Body Mass Index | 25.96 | 07/28/2014 7:49 AM | | | | | PDT | | + + + + + documented in this encounter Discharge Instructions Instructions Etelvina Galan RN - 07/28/2014 Coronary Angiography Angiography is a special type of X-ray that allows your coronary arteries to be viewed and recorded on film. Your doctor can see if the blood vessels to your heart are clogged. Before the Procedure Tell your doctor what medicines you take and any allergies you may have. Don t eat or drink anything after midnight, the night before the procedure. During the Procedure A long, thin tube called a catheter is placed inside an artery in your groin or arm and guided into your heart. A contrast dye is injected through the catheter into your blood vessels or heart chamber s. X-rays are taken to to show clear photos of the inside of your heart and coronary arteri es. After the Procedure Your doctor or nurse will tell you how long to lie down and keep the insertion site stil l. If the insertion site was in your groin, you may need to lie down with your leg still fo r several hours. A nurse will check your blood pressure and the insertion site. You may be asked to drink fluid to help flush the contrast liquid out of your system. Have someone drive you home from the hospital. It s normal to find a small bruise or lump at the insertion site. These common side ef fects should disappear within a few weeks. Call Your Health Care Provider Contact your health care provider if: You have angina (chest pain). The insertion site has pain, swelling, redness, bleeding, or drainage. You have severe pain, coldness, or a bluish color in the leg or arm that held the cathet er. You experience blood in your urine, black or tarry stools, or any other kind of bleeding . You have a fever over 101F (38.3C). [id number] [employer]. [address] [place] [address], [place] [address]. All righ ts reserved. This information is [...] + + documented as of this encounter Progress Notes Etelvina Galan RN - 07/28/2014 9:46 AM PDTRt groin site without bleeding, swelling o r drainage, dressing clean, dry and intact documented in this encounter Plan of Treatment Not on filedocumented as of this encounter Procedures + +--------+ + + + | Procedure Name | Priori | Date/Time | Associated Diagnosis | Comments | | | ty | | | | + +--------+ + + + | CV DIAGNOSTIC | Routin | 07/28/2014 | CAD (coronary | Results for this | | CARDIAC CATH | e | 9:31 AM | artery disease) | procedure are in the | | | | PDT | | results section. | + +--------+ + + + | CV DIAGNOSTIC | | 07/28/2014 | CAD | | | CARDIAC CATH | | 8:30 AM | | | | | | PDT | | | + +--------+ + + + | BASIC METABOLIC | Routin | 07/28/2014 | | Results for this | | PANEL | e | 8:20 AM | | procedure are in the | | | | PDT | | results section. | + +--------+ + + + | POC GLUCOSE | Routin | 07/28/2014 | | Results for this | | | e | 8:13 AM | | procedure are in the | | | | PDT | | results section. | + +--------+ + + + documented in this encounter Results CV Adult Cardiac Cath Diag/PCI (07/28/2014 9:31 AM PDT) + + | Specimen | + + | | + + + + + | Narrative | Performed At | + + + | Bubba Maxwell MD 07/28/2014 14:50 CARDIAC | [facility] | | CATHETERIZATION and CORONARY ANGIOGRAPHY PATIENT NAME/: | [facility] | | Etelvina Benitez, (1950) MEDICAL RECORD NUMBER: | MEDICAL CENTER | | [id number] DATE OF PROCEDURE: 07/28/2014 [employer]: | - IMAGING | | Bubba Maxwell MD, PhD, [facility] PROCEDURES | | | PERFORMED: Coronary Angiography Left Heart Catheterization Left | | | Ventriculography Indications: Coronary artery disease | | | DESCRIPTION OF PROCEDURE: Informed consent was obtained from the | | | patient, and a time-out was performed to verify the patient's | | | identification and planned procedure. The patient's right groin | | | was then prepped and draped in the usual sterile fashion, and | | | anesthetized with 1% lidocaine. For arterial access modified | | | Seldinger technique was used to place a 6 Fr. sheath in the right | | | femoral artery.. Right heart catheterization was not performed on | | | this patient. After crossing the aortic valve, left | | | ventriculography was performed in the SUAREZ projection. Selective | | | coronary angiogram was then performed in several sagittal and | | | oblique projections. JL-4, JR-4 and pigtail diagnostic catheters | | | were used for this procedure. The patient received a total of 1 mg | | | of Versed and 50 mcg of fentanyl intravenously for conscious | | | sedation during the procedure. A total of 85 mL Omnipaque 350 | | | contrast was utilized. The procedure had no immediate | | | complications. At the conclusion of the procedure, the sheath | | | was removed and hemostasis obtained with a TR hemostatic band. | | | FINDINGS: Hemodynamics: Ao - 145/54 mm Hg with a mean of 91 | | | mm Hg LV - 145/0 mm Hg LVEDP - 6 mm Hg Left ventriculography: | | | The left ventricular size and function were normal. LVEF is | | | calculated at 60%. There is no mitral valve regurgitation noted. | | | Left main artery: The left main artery is a small caliber vessel | | | that bifurcates into the left anterior descending artery and left | | | circumflex artery. Left main artery has mild diffuse disease. | | | Left anterior descending artery: The left anterior descending | | | artery is a small caliber vessel that wraps around the apex and | | | gives rise to 2 diagonal branches. The vessel has moderate diffuse | | | plaquing. It gives rise to 2 diagonal branches. Left circumflex | | | artery: The left circumflex artery is a small caliber vessel that | | | is non dominant. The vessel has exhibits moderate to severe | | | diffuse disease, with a focal 90% lesion at its midpoint.. It | | | gives rise to 2 OM branches. Right coronary artery: The right | | | coronary artery is a small caliber vessel that is non dominant. | | | The vessel has occlusion proximally with moderate left to right | | | collateral flow.. CONCLUSIONS: 1. Proximally | | | occluded dominant RCA, with moderate diffuse disease of the LAD and | | | LCx. 2. There is a right dominant circulation. 3. Normal LV systolic | | | function. 4. Systemic blood pressure is mildly elevated. 5. There | | | was successful Angio Seal placement to the puncture site in the | | | right femoral artery. 6. Will consider patient for possibility of | | | surgical revascularization. Otherwise continued medical therapy | | | and aggressive risk factor reduction recommended. | | | at | | | 13:58 CC TO PRIMARY CARE PROVIDER: Matt Kinney | | + + + + + + + + | Performing | Address | City/State/Zipcode | Phone Number | | Organization | | | | + + + + + | [facility] | [address] | [place], [place] | [phone] | | [facility] | | [id number] | | | - IMAGING | | | | + + + + + Basic Metabolic Panel (07/28/2014 8:20 AM PDT) + + + + + + | Component | Value | Ref Range | Performed | Pathologist | | | | | At | Signature | + + + + + + | Na | 140 | 136 - 149 | [facility] | | | | | mmol/L | [facility] | | | | | | MEDICAL | | | | | | CENTER - | | | | | | LABORATORY | | + + + + + + | K | 4.4 | 3.5 - 5.1 | [facility] | | | | | mmol/L | [facility] | | | | | | MEDICAL | | | | | | CENTER - | | | | | | LABORATORY | | + + + + + + | Cl | 106 | 98 - 109 mmol/L | [facility] | | | | | | [facility] | | | | | | MEDICAL | | | | | | CENTER - | | | | | | LABORATORY | | + + + + + + | CO2 | 24 | 24 - 31 mmol/L | [facility] | | | | | | [facility] | | | | | | MEDICAL | | | | | | CENTER - | | | | | | LABORATORY | | + + + + + + | Anion Gap | 10 | 3 - 16 mmol/L | [facility] | | | | | | [facility] | | | | | | MEDICAL | | | | | | CENTER - | | | | | | LABORATORY | | + + + + + + | Glucose | 121 (H) | 70 - 109 mg/dL | [facility] | | | | | | [facility] | | | | | | MEDICAL | | | | | | CENTER - | | | | | | LABORATORY | | + + + + + + | BUN | 13 | 7 - 18 mg/dL | [facility] | | | | | | [facility] | | | | | | MEDICAL | | | | | | CENTER - | | | | | | LABORATORY | | + + + + + + | Creatinine | 1.05 | 0.60 - 1.30 | [facility] | | | | | mg/dL | [facility] | | | | | | MEDICAL | | | | | | CENTER - | | | | | | LABORATORY | | + + + + + + | eGFR if not | 53 (L)Comment: | >=60 | [facility] | | | SEAN | GLOMERULAR FILTRATION | mL/min/1.73m2 | [facility] | | | ICELANDIC | RATE,ESTIMATED | | MEDICAL | | | | mL/min/1.76o4Cnxx than | | CENTER - | | | | 60 Chronic kidney | | LABORATORY | | | | disease,if found over a | | | | | | 3-month period.Less than | | | | | | 15 Kidney failureFor | | | | | | | | | | | | Americans,multiply the | | | | | | calculated GFR by 1.21. | | | | | | | | | | + + + + + + | Calcium | 9.2 | 8.3 - 10.5 | [facility] | | | | | mg/dL | [facility] | | | | | | MEDICAL | | | | | | CENTER - | | | | | | LABORATORY | | + + + + + + | BUN/Creatin | 12.4 | | [facility] | | | ine Ratio | | | [facility] | | | | | | MEDICAL | | | | | | CENTER - | | | | | | LABORATORY | | + + + + + + + + | Specimen | + + | Blood | + + + + + + + | Performing | Address | City/State/Zipcode | Phone Number | | Organization | | | | + + + + + | [facility] | [address] | [place], [place] | [phone] | | [facility] | | [address] | | | - LABORATORY | | | | + + + + + POC Glucose (07/28/2014 8:13 AM PDT) + +-------+ + + + | Component | Value | Ref Range | Performed | Pathologist | | | | | At | Signature | + +-------+ + + + | Glucose, | 123 | 70 - 150 mg/dL | [facility] | | | POC [...] + + + + + | [facility] | [address] | [place] | [phone] | | [facility] | | [address] | | | - LABORATORY | | | | + + + + + documented in this encounter Visit Diagnoses + + | Diagnosis | + + | Coronary artery disease involving elem coronary artery without angina pectoris - | | Primary | + + | CAD (coronary artery disease) Coronary atherosclerosis of unspecified type of vessel, | | elem or graft | + + documented in this encounter Administered Medications + +--------+ +--------+------+------+ | Medication Order | MAR | Action | Dose | Rate | Site | | | Action | Date | | | | + +--------+ +--------+------+------+ | fentaNYL injection PRN, | Given | 07/29/19 | 50 mcg | | | | Starting 07/28/14 at 0858 | | 15 8:58 | | | | | | | AM PDT | | | | + +--------+ +--------+------+------+ +---+---+ | | | +---+---+ + +-------+ +--------+---+---+ | iohexol (OMNIPAQUE 350) 350 | Given | 07/29/19 | 85 mLs | | | | mg/mL injection Intravenous, | | 15 9:23 | | | | | PRN, Starting 07/28/14 at 0923 | | AM PDT | | | | + +-------+ +--------+---+---+ +---+---+ | | | +---+---+ + +-------+ +------+---+---+ | midazolam (VERSED) 1 mg/mL | Given | 07/29/19 | 1 mg | | | | injection PRN, Starting Tue | | 15 8:58 | | | | | 07/28/14 at 0858 | | AM PDT | | | | + +-------+ +------+---+---+ +---+---+ | | | +---+---+ + +---------+ +--------+-------+ + | sodium chloride 0.9% (NS) | New Bag | 07/29/19 | 1,000 | 125 | Left Arm | | infusion at 125 mL/hr, | | 15 8:29 | mLs | mL/hr | | | Intravenous, FIXED VOLUME (see | | AM PDT | | | | | admin instruction), Starting Tue | | | | | | | 07/28/14 at 0815, For 8 hours, For | | | | | | | procedure only, not to exceed 1 | | | | | | | liter., Pre-op | | | | | | + +---------+ +--------+-------+ + +---+---+ | | | +---+---+ documented in this encounter
--- OUTSIDE RECORDS SUMMARY | ~2019-03-02 | XMS | Encounter Summary ---
Demographics + + + | Address | [address] | | | [place] [address] | + + + | Home Phone | | + + + | Preferred Language | Unknown | + + + | Marital Status | Single | + + + | Protestant Affiliation | 1013 | + + + | Race | Unknown | + + + | Ethnic Group | Unknown | + + + Author + + + | Author | [facility] | | | and Dwayneana | + + + | Organization | [facility] | | | and Dwayneana | [...] Team Providers + +------+ + | Care Film Composer Name | Role | Phone | + +------+ + | Margie Gonzalez | PCP | | + +------+ + Reason for Visit Evaluate & Treat (Routine) +--------+ + + + + + | Status | Reason | Specialty | Diagnoses / | Referred By | Referred To | | | | | Procedures | Contact | Contact | +--------+ + + + + + | Closed | Specialty | Pulmonary | Diagnoses | Hans, | [facility] | | | Services | Disease / | Chronic | Bubba | Pulmonary | | | Required | Pulmonology | obstructive | MD Yimi | [address] | | | | | pulmonary | [address] | [place], | | | | | disease, | [place] | [place] | | | | | unspecified | [place], [place] | [address] | | | | | COPD type | [address] | Phone: | | | | | ([facility]) | Phone: | [phone] | | | | | | [phone] | Fax: | | | | | | Fax: | [phone] | | | | | | [phone] | | +--------+ + + + + + Encounter Details +--------+---------+ + + + | Date | Type | Department | Care Team | Description | +--------+---------+ + + + | 10/30/ | Office | [facility] | Joseph Aranda | Acute combined | | 2018 | Visit | PULMONARY [address] | MD A[address] | systolic and | | | | [place], | [place] | diastolic CHF, NYHA | | | | [place] [address] | [place] [address] | class 2 (HCC) | | | | [phone] | [phone] | (Primary Dx); | | | | | | Tobacco dependence; | | | | | | Dyspnea, unspecified | | | | | | type | +--------+---------+ + + + Social History [...] | | | + +---+---+---+ + + | Tobacco Cessation: Ready to Quit: No; Counseling Given: Yes | + + + + +---------+ + | Alcohol Use [...] + + + | Blood Pressure | 158/90 | 10/30/2017 1:26 PM | | | | | PDT | | + + + + + | Pulse | 85 | 10/30/2017 1:26 PM | | | | | PDT | | + + + + + | Temperature | 36.5 C (97.7 F) | 10/30/2017 1:26 PM | | | | | PDT | | + + + + + | Respiratory Rate | - | - | | + + + + + | Oxygen Saturation | 97% | 10/30/2017 1:26 PM | | | | | PDT | | + + + + + | Inhaled Oxygen | - | - | | | Concentration | | | | + + + + + | Weight | 57.4 kg (126 lb 8.7 | 10/30/2017 1:26 PM | | | | oz) | PDT | | + + + + + | Height | 165.1 cm (5' 5") | 10/30/2017 1:26 PM | | | | | PDT | | + + + + + | Body Mass Index | 21.06 | 10/30/2017 1:26 PM | | | | | PDT | | + + + + + documented in this encounter Plan of Treatment Not on filedocumented as of this encounter Results Pulmonary function test full PFT (01/11/2018 10:57 AM PDT) + + + | Narrative | Performed At | + + + | [facility] | | | MD Manoj 01/11/2018 10:59 PULMONARY FUNCTION TESTING | | | SPIROMETRY: The FVC was 2.81 L or 92 % of predicted. The FEV1 was 2.35 | | | L or 101 % of predicted. FEV1/FVC ratio was 84 %. LUNG VOLUMES: The | | | total lung capacity was 5.04 L or 97 % of predicted. The residual | | | volume was 2.17 L or 99 % of predicted. RV/TLC ratio was 101 % of | | | predicted. DIFFUSION CAPACITY: The diffusion capacity was 13.0 | | | mL/mmHg per minute or 54 % of predicted. IMPRESSION: Spirometry is | | | consistent with normal physiology on optimized medication. Lung volume | | | testing is consistent with normal physiology. Diffusion capacity is | | | moderately reduced and is not corrected for measured hemoglobin. Test | | | performed: She understood instructions and cooperated well, | | | spirometry was acceptable and reproducible.Electronically signed by: | | | Joseph Aranda MD 01/11/2018 10:57[facility] | | | CENTER | | |IMPRESSION: Spirometry is consistent with normal physiology on | | |optimized medication. Lung volume testing is consistent with | | |normal physiology. Diffusion capacity is moderately reduced and | | |is not corrected for measured hemoglobin. | | | | | |Test performed: She understood instructions and cooperated well, | | |spirometry was acceptable and reproducible. | | |Electronically signed by: Joseph Aranda MD 01/11/2018 10:57 | | |[facility] | | | | | + + + documented in this encounter Visit Diagnoses + + | Diagnosis | + + | Acute combined systolic and diastolic CHF, NYHA class 2 (HCC) - Primary | + + | Tobacco dependence Tobacco use disorder | + + | Dyspnea, unspecified type | + + documented in this encounter
--- OUTSIDE RECORDS SUMMARY | ~2019-03-02 | XMS | Encounter Summary ---
Demographics + + + | Address | [address] | | | [place] [address] | + + + | Home Phone | | + + + | Preferred Language | Unknown | + + + | Marital Status | Single | + + + | Jain Affiliation | 1013 | + + + | Race | Unknown | + + + | Ethnic Group | Unknown | + + + Author + + + | Author | [facility] | | | and Dwayneana | + + + | Organization | [facility] | | | and [...] Team Providers + +------+ + | Care Slice Cutting Machine Operator Name | Role | Phone | + +------+ + | Matt Kinney MD | PCP | | + +------+ + Reason for Visit Service/Procedure (Routine) +--------+--------+ + + + + | Status | Reason | Specialty | Diagnoses / | Referred By | Referred To | | | | | Procedures | Contact | Contact | +--------+--------+ + + + + | Closed | | Radiology | Diagnoses | | [facility] | | | | | Lumbar | [place], | [address] | | | | | radiculopath | Javon Bautista MD | [place], | | | | | y | [address] | [place] | | | | | Procedures | [place] | [address] | | | | | [place] INJECT | [place] | Phone: | | | | | ANES/STEROID | [address] | [phone] | | | | | FORAMEN | Phone: | Fax: | | | | | LUMBAR/SACRA | [phone] | [phone] | | | | | L W IMG | Fax: | | | | | | GUIDE ,1 | [phone] | | | | | | LEVEL [place] | | | | | | | INJECT | | | | | | | ANES/STEROID | | | | | | | FORAMEN | | | | | | | LUMBAR/SACRA | | | | | | | L W IMG | | | | | | | GUIDE ,EA | | | | | | | ADD LEVEL | | | | | | | RI | | | | | | | TRIAMCINOLON | | | | | | | E ACET INJ | | | | | | | NOS, 10 MG | | | | | | | Right L4-L5 | | | | | | | and Left | | | | | | | L5-S1 TFESI | | | | | | | Direct | | | | | | | referral | | | | | | | from | | | | | | | Jair Aiken | | | +--------+--------+ + + + + Encounter Details +--------+ + + + + | Date | Type | Department | Care Team | Description | +--------+ + + + + | 08/26/ | Hospital | [facility] | Javon Ivy | Lumbar radiculopathy | | 2013 | Encounter | MED CTR XRAY [address] | T, [address] | | | | | [place] | [place], [place] | | | | | [place] [address] | [address] | | | | | [phone] | | | | | | | Blocking Machine OperatorLeonora | | +--------+ + + + + [...] this encounter Last Filed Vital Signs + +---------+ + + | Vital Sign | Reading | Time Taken | Comments | + +---------+ + + | Blood Pressure | 113/68 | 08/26/2013 4:15 PM | | | | | PDT | | + +---------+ + + | Pulse | 95 | 08/26/2013 4:15 PM | | | | | PDT | | + +---------+ + + | Temperature | - | - | | + +---------+ + + | Respiratory Rate | - | - | | + +---------+ + + | Oxygen Saturation | - | - | | + +---------+ + + | Inhaled Oxygen | - | - | | | Concentration | | | | + +---------+ + + | Weight | - | - | | + +---------+ + + | Height | - | - | | + +---------+ + + | Body Mass Index | - | - | | + +---------+ + + documented in this encounter Medications [...] + +---------+ + + | gabapentin | 1 capsule by mouth | 120 | 1 | 08/08/19 | | | (NEURONTIN) 300 mg | at bedtime for 3 | capsule | | 14 | 4 | | capsule | days; then 1 twice | | | | | | | daily for 4 days; | | | | | | | then 1 three times | | | | | | | daily for 7 days; | | | | | | | then 1 qAM, 1 qNoon, | | | | | | | and 2 qHS | | | | | + + [...] | + +--------+ + + + | FL EPIDURAL STEROID | Routin | 08/26/2013 | Lumbar | Results for this | | INJECTION LUMBAR | e | 4:06 PM | radiculopathy | procedure are in the | | TRANSFORAMINAL | | PDT | | results section. | + +--------+ + + + documented in this encounter Results FL EZEKIEL Lumbar Transforaminal (08/26/2013 4:06 PM PDT) + + | Specimen | + + | | + + + + + | Narrative | Performed At | + + + | 08/26/13 Right L4-L5 and Left L5-D3Xefwsllajledew Epidural Steroid | [facility] | | Injections Diagnosis: Lumbar radiculopathy ICD-9 Code 724.4 | [facility] | | Etelvina Benitez presents to the fluoroscopy suite for [facility] | | fluoroscopically-guided right L4-L5 and [...] PDT 08/26/13Right L4-L5 and Left | | L5-I0Hiosldzfqjdyia Epidural Steroid InjectionsDiagnosis: Lumbar radiculopathyICD-9 Code | | 724.4Deborah K Pulse presents to the fluoroscopy suite for [...] | + + + + + | [facility] | [address] | [place], [place] | [phone] | | [facility] | | [address] | | | - IMAGING | | | | + + + + + documented in this encounter Visit Diagnoses + + | Diagnosis | + + | Lumbar radiculopathy Thoracic or lumbosacral neuritis or radiculitis, unspecified | + + documented in this encounter Administered Medications + +--------+ +-------+------+ + | Medication Order | MAR | Action | Dose | Rate | Site | | | Action | Date | | | | + +--------+ +-------+------+ + | betamethasone (CELESTONE | Given | 08/27/19 | 12 mg | | Other | | SOLUSPAN) injection 12 mg 12 mg, | | 14 4:15 | | | (Comment | | Intramuscular, EVERY 24 HOURS | | PM PDT | | | ) | | INTERVAL, First dose on Sun | | | | | | | 08/26/13 at 1615, For 2 doses, | | | | | | | Shake well. Not for IV use., | | | | | | + +--------+ +-------+------+ + +---+---+ | | | +---+---+ + +-------+ +-------+---+ + | iohexol (OMNIPAQUE 300) 300 | Given | 08/27/19 | 4 mLs | | Back-Low | | mg/mL injection 4 mL 4 mL, | | 14 4:15 | | | er | | INTRATHECAL, ONCE, 08/26/13 at | | PM PDT | | | | | 1615, For 1 dose | | | | | | + +-------+ +-------+---+ + +---+---+ | | | +---+---+ + +-------+ +-------+---+ + | lidocaine (PF) 1% injection 5 | Given | 08/27/19 | 5 mLs | | Other | | mL 5 mL, EPIDURAL, ONCE, Tue | | 14 4:08 | | | (Comment | | 08/26/13 at 1615, For 1 dose | | PM PDT | | | ) | + +-------+ +-------+---+ + +---+---+ | | | +---+---+ + +-------+ +-------+---+---+ | lidocaine 1% injection 5 mL 5 | Given | 08/27/19 | 5 mLs | | | | mL, Infiltration, ONCE, Tue | | 14 4:15 | | | | | 08/26/13 at 1615, For 1 dose | | PM PDT | | | | + +-------+ +-------+---+---+ +---+---+ | | | +---+---+ documented in this encounter"
--- OUTSIDE RECORDS SUMMARY | ~2019-03-02 | XMS | Encounter Summary ---
Demographics + + + | Address | [address] | | | [place] [address] | + + + | Home Phone | | + + + | Preferred Language | Unknown | + + + | Marital Status | Single | + + + | Uatsdin Affiliation | 1013 | + + + | Race | Unknown | + + + | Ethnic Group | Unknown | + + + Author + + + | Author | [facility] | | | and Dwayneana | + + + | Organization | [facility] | | | and Dwayneana [...] Team Providers + +------+ + | Care Chlorine Cells Operator Name | Role | Phone | + +------+ + PCP | Unavailable | + +------+ + Encounter Details +--------+ + + + + | Date | Type | Department | Care Team | Description | +--------+ + + + + | 04/11/ | Hospital | [facility] | Nestor Nice | | | 2010 | Encounter | MED CTR XRAY [address] | MD Alma, [address] | | | | | [place] | [place] | | | | | [place] [address] | [place] [address] | | | | | [phone] | | | | | | | [...] | + +--------+ + + + | VAS CAROTID DUPLEX | | 04/11/2011 | | Results for this | | BILATERAL | | 7:25 AM | | procedure are in the | | | | PST | | results section. | + +--------+ + + + documented in this encounter Results VAS Carotid Duplex Bilateral (04/11/2011 7:25 AM PST) + + | Specimen | + + | | + + + + + | Narrative | Performed At | + + + | [facility] | [place] | | [address] [place] | [facility] | | | DIAG IMG | | CAROTID DUPLEX ULTRASOUND [facility] | | | [facility] IM[facility] #: | | | WASTE MACHINE TENDER: OCTAVIA/TRACI REASON FOR EXAM: CAROTID STENOSIS, H/O | | | CAROTID ENDARTERECTOMY | | | | | | RIGHT Peak Systolic End Diastolic Ratio Distal PSV | | | Velocity Velocity CCA | | | .89 m/s .35 m/s BULB | | | 1.20 m/s .45 m/s 1.35 ECA | | | 1.90 m/s .40 m/s 2.13 ICA | | | 1.77 m/s .60 m/s 1.91 | | | LEFT Peak Systolic End Diastolic Ratio Distal PSV | | | Velocity Velocity CCA | | | .89 m/s .25 m/s BULB | | | .94 m/s .41 m/s 1.10 ECA | | | 2.94 m/s .55 m/s 3.30 | | | ICA 1.30 m/s .58 m/s | | | 1.46 | | | | | | | | | | | | BILATERAL CAROTID DUPLEX ULTRASOUND, 04/11/2011 CLINICAL HISTORY: | | | CAROTID STENOSIS STATUS POST ENDARTERECTOMY. FINDINGS: | | | There is bulky atherosclerotic plaque in the right carotid bulb. | | | This is associated with luminal narrowing and flow acceleration in | | | the ICA. This is consistent with a moderate (50-80%) clinically | | | significant stenosis. The left carotid is remarkable for | | | postendarterectomy changes. There is intimal thickening. There | | | is no significant luminal narrowing of flow acceleration. Findings | | | are consistent with a residual mild (20-50%) hemodynamically | | | nonsignificant stenosis. Vertebrals demonstrate antegrade flow. | | | IMPRESSION: 1. MODERATE RIGHT CAROTID STENOSIS. 2. | | | MILD RESIDUAL LEFT CAROTID STENOSIS POST ENDARTERECTOMY. | | | Dictated Date/Time: 04/11/2011 15:02 Transcribed Date/Time: | | | 04/11/2011 16:36 Flight Physician: <Electronically Signed | | | by Boby Masterson MD> 04/12/11 0816 | | + + + + + | Procedure Note | + + | John, Rad Conversion - 05/30/2013 4:26 PM [facility] | | Diagnostic Imaging Department | | [address], [place] | | | | | | | | | | CAROTID DUPLEX ULTRASOUND | | [facility] | | | | IMAGING #: WASTE MACHINE TENDER: LUL | | REASON FOR EXAM: CAROTID STENOSIS, H/O CAROTID ENDARTERECTOMY | | | | RIGHT Peak Systolic End Diastolic Ratio Distal PSV | | Velocity Velocity | | | | CCA .89 m/s .35 m/s | | BULB 1.20 m/s .45 m/s 1.35 | | ECA 1.90 m/s .40 m/s 2.13 | | ICA 1.77 m/s .60 m/s 1.91 | | | | | | | | LEFT Peak Systolic End Diastolic Ratio Distal PSV | | Velocity Velocity | | | | CCA .89 m/s .25 m/s | | BULB .94 m/s .41 m/s 1.10 | | ECA 2.94 m/s .55 m/s 3.30 | | ICA 1.30 m/s .58 m/s 1.46 | | | | | | | | | | BILATERAL CAROTID DUPLEX ULTRASOUND, 04/11/2011 | | | | CLINICAL HISTORY: CAROTID STENOSIS STATUS POST ENDARTERECTOMY. | | | | FINDINGS: There is bulky atherosclerotic plaque in the right carotid bulb. | | This is associated with luminal narrowing and flow acceleration in the ICA. | | This is consistent with a moderate (50-80%) clinically significant stenosis. | | | | The left carotid is remarkable for postendarterectomy changes. There is | | intimal thickening. There is no significant luminal narrowing of flow | | acceleration. Findings are consistent with a residual mild (20-50%) | | hemodynamically nonsignificant stenosis. Vertebrals demonstrate antegrade | | flow. | | | | IMPRESSION: | | 1. MODERATE RIGHT CAROTID STENOSIS. | | | | 2. MILD RESIDUAL LEFT CAROTID STENOSIS POST ENDARTERECTOMY. | | | | Dictated Date/Time: 04/11/2011 15:02 | | Transcribed Date/Time: 04/11/2011 16:36 | | Flight Physician: | | <Electronically Signed by Boby Masterson MD> 04/12/11 0816 | + + + +---------+ + + | Performing | Address | City/State/Zipcode | Phone Number | | Organization | | | | + +---------+ + + | [place] | | | | | [facility] | | | | + +---------+ + + documented in this encounter Visit Diagnoses Not on filedocumented in this encounter"
--- OUTSIDE RECORDS SUMMARY | ~2019-03-02 | XMS | Encounter Summary ---
Demographics + + + | Address | [address] | | | [place] [address] | + + + | Home Phone | | + + + | Preferred Language | Unknown | + + + | Marital Status | Single | + + + | Jainism Affiliation | 1013 | + + + | Race | Unknown | + + + | Ethnic Group | Unknown | + + + Author + + + | Author | [facility] | | | and Dwayneana | + + + | Organization | [facility] | | | and Dwayneana [...] Team Providers + +------+ + | Care Roustabout Supervisor Name | Role | Phone | + +------+ + PCP | Unavailable | + +------+ + Encounter Details +--------+ + + + + | Date | Type | Department | Care Team | Description | +--------+ + + + + | 07/21/ | Abstract | [facility] | Gael Adam, | | | 2013 | | MEDICINE | MD [address] | | | | | [address] | [place] | | | | | [address] [place] | [phone] | | | | | [place] [address] | | | | | | [phone] | | | +--------+ + + + [...]
--- OUTSIDE RECORDS SUMMARY | ~2019-03-02 | XMS | Encounter Summary ---
Demographics + + + | Address | [address] | | | [place] [address] | + + + | Home Phone | | + + + | Preferred Language | Unknown | + + + | Marital Status | Single | + + + | Mandaen Affiliation | 1013 | + + + | Race | Unknown | + + + | Ethnic Group | Unknown | + + + Author + + + | Author | [facility] | | | and Dwayneana | + + + | Organization | [facility] | | | and Dwayneana [...] Team Providers + +------+ + | Care Route Sales Manager Name | Role | Phone | + +------+ + | Margie Gonzalez | PCP | | + +------+ + Encounter Details +--------+ + + + + | Date | Type | Department | Care Team | Description | +--------+ + + + + | 08/13/ | Abstract | [facility] | Bubba Maxwell | | | 2017 | | [place] [address] | MD Yimi [address] | | | | | [place], | [place] [address] [place] | | | | | [place] [address] | [place] [address] | | | | | [phone] | | | | | | | [...] | + +--------+ + + + | EXTERNAL LAB: NATHANIEL | Routin | 06/21/2017 | | Results for this | | | e | | | procedure are in the | | | | | | results section. | + +--------+ + + + | EXTERNAL LAB: | Routin | 06/21/2017 | | Results for this | | GLUCOSE | e | | | procedure are in the | | | | | | results section. | + +--------+ + + + | EXTERNAL LAB: | Routin | 06/21/2017 | | Results for this | | TROPONIN I | e | | | procedure are in the | | | | | | results section. | + +--------+ + + + | EXTERNAL LAB: | Routin | 06/21/2017 | | Results for this | | CALCIUM | e | | | procedure are in the | | | | | | results section. | + +--------+ + + + | EXTERNAL LAB: CARBON | Routin | 06/21/2017 | | Results for this | | DIOXIDE | e | | | procedure are in the | | | | | | results section. | + +--------+ + + + | EXTERNAL LAB: | Routin | 06/21/2017 | | Results for this | | CHLORIDE | e | | | procedure are in the | | | | | | results section. | + +--------+ + + + | EXTERNAL LAB: | Routin | 06/21/2017 | | Results for this | | POTASSIUM | e | | | procedure are in the | | | | | | results section. | + +--------+ + + + | EXTERNAL LAB: SODIUM | Routin | 06/21/2017 | | Results for this | | | e | | | procedure are in the | | | | | | results section. | + +--------+ + + + | EXTERNAL LAB: MAGGI | Routin | 06/21/2017 | | Results for this | | | e | | | procedure are in the | | | | | | results section. | + +--------+ + + + | EXTERNAL LAB: B TYPE | Routin | 06/21/2017 | | Results for this | | NATURETIC PEPTIDE | e | | | procedure are in the | | | | | | results section. | + +--------+ + + + | EXTERNAL LAB: EGFR | Routin | 06/21/2017 | | Results for this | | | e | | | procedure are in the | | | | | | results section. | + +--------+ + + + | EXTERNAL LAB: | Routin | 06/21/2017 | | Results for this | | CREATININE | e | | | procedure are in the | | | | | | results section. | + +--------+ + + + | CBC WITH | Routin | 06/21/2017 | | Results for this | | DIFFERENTIAL | e | | | procedure are in the | | | | | | results section. | + +--------+ + + + | HEMOGLOBIN A1C | Routin | 06/21/2017 | | Results for this | | | e | | | procedure are in the | | | | | | results section. | + +--------+ + + + | COMPREHENSIVE | Routin | 06/21/2017 | | Results for this | | METABOLIC PANEL | e | | | procedure are in the | | | | | | results section. | + +--------+ + + + documented in this encounter Results CBC with Differential (06/21/2017) + +-------+ + + + | Component | Value | Ref Range | Performed | Pathologist | | | | | At | Signature | + +-------+ + + + | MCH | 28.0 | 26.0 - 33.0 pg | | | + +-------+ + + + | MCHC | 34.0 | 30.0 - 36.0 % | | | + +-------+ + + + | % Basophils | 1.0 | 1.0 % | | | + +-------+ + + + + + | Specimen | + + | Blood | + + External Lab: Troponin I (06/21/2017) + +-------+ + + + | Component | Value | Ref Range | Performed | Pathologist | | | | | At | Signature | + +-------+ + + + | Troponin I, | <0.10 | | | | | External | | | | | + +-------+ + + + External Lab: MAGGI (06/21/2017) + +-------+ + + + | Component | Value | Ref Range | Performed | Pathologist | | | | | At | Signature | + +-------+ + + + | WBC, | 7.5 | | | | | External | | | | | + +-------+ + + + | HGB, | 12.8 | | | | | External | | | | | + +-------+ + + + | HCT, | 37.8 | | | | | External | | | | | + +-------+ + + + | PLT, | 242 | | | | | External | | | | | + +-------+ + + + | Neutrophils | 73.1 | | | | | %, | | | | | | External | | | | | + +-------+ + + + | Lymphocytes | 17.4 | | | | | %, | | | | | | External | | | | | + +-------+ + + + | Monocytes | 5.5 | | | | | %, External | | | | | + +-------+ + + + | Eosinophils | 3.0 | | | | | %, | | | | | | External | | | | | + +-------+ + + + | RBC, | 4.51 | | | | | External | | | | | + +-------+ + + + | MCV, | 84 | | | | | External | | | | | + +-------+ + + + | RDW, | 14.8 | | | | | External | | | | | + +-------+ + + + External Lab: B Type Naturetic Peptide (06/21/2017) + +---------+ + + + | Component | Value | Ref Range | Performed | Pathologist | | | | | At | Signature | + +---------+ + + + | B-Type | 272 (A) | 100 | | | | Naturetic | | | | | | Peptide, | | | | | | External | | | | | + +---------+ + + + + + | Specimen | + + | Blood | + + Comprehensive Metabolic Panel (06/21/2017) + +-------+ + + + | Component | Value | Ref Range | Performed | Pathologist | | | | | At | Signature | + +-------+ + + + | Anion Gap | 14 | mmol/L | | | + +-------+ + + + | Bun/Creatin | 18.9 | | | | | ine | | | | | + +-------+ + + + + + | Specimen | + + | Blood | + + Hemoglobin A1C (06/21/2017) + +-------+ + + + | Component | Value | Ref Range | Performed | Pathologist | | | | | At | Signature | + +-------+ + + + | Hemoglobin | 9.8 | % | | | | A1c | | | | | + +-------+ + + + + + | Specimen | + + | Blood | + + External Lab: BUN (06/21/2017) + +-------+ + + + | Component | Value | Ref Range | Performed | Pathologist | | | | | At | Signature | + +-------+ + + + | BUN, | 14 | | | | | External | | | | | + +-------+ + + + External Lab: Glucose (06/21/2017) + +---------+ + + + | Component | Value | Ref Range | Performed | Pathologist | | | | | At | Signature | + +---------+ + + + | Glucose, | 259 (A) | 100 | | | | External | | | | | + +---------+ + + + External Lab: Calcium (06/21/2017) + +-------+ + + + | Component | Value | Ref Range | Performed | Pathologist | | | | | At | Signature | + +-------+ + + + | Calcium, | 9.1 | | | | | External | | | | | + +-------+ + + + External Lab: Carbon Dioxide (06/21/2017) + +-------+ + + + | Component | Value | Ref Range | Performed | Pathologist | | | | | At | Signature | + +-------+ + + + | Carbon | 29 | | | | | Dioxide, | | | | | | External | | | | | + +-------+ + + + External Lab: Chloride (06/21/2017) + +-------+ + + + | Component | Value | Ref Range | Performed | Pathologist | | | | | At | Signature | + +-------+ + + + | Chloride, | 102 | | | | | External | | | | | + +-------+ + + + External Lab: Potassium (06/21/2017) + +-------+ + + + | Component | Value | Ref Range | Performed | Pathologist | | | | | At | Signature | + +-------+ + + + | Potassium, | 3.8 | | | | | External | | | | | + +-------+ + + + External Lab: Sodium (06/21/2017) + +-------+ + + + | Component | Value | Ref Range | Performed | Pathologist | | | | | At | Signature | + +-------+ + + + | Sodium, | 14 | | | | | External | | | | | + +-------+ + + + External Lab: eGFR (06/21/2017) + +-------+ + + + | Component | Value | Ref Range | Performed | Pathologist | | | | | At | Signature | + +-------+ + + + | eGFR, | 78 | | | | | External | | | | | + +-------+ + + + + + | Specimen | + + | Blood | + + External Lab: Creatinine (06/21/2017) + +-------+ + + + | Component | Value | Ref Range | Performed | Pathologist | | | | | At | Signature | + +-------+ + + + | Creatinine, | 0.74 | | | | | External | | | | | + +-------+ + + + + + | Specimen | + + | Blood | + + documented in this encounter Visit Diagnoses Not on filedocumented in this encounter"
--- OUTSIDE RECORDS SUMMARY | ~2019-03-02 | XMS | Encounter Summary ---
Demographics + + + | Address | [address] | | | [place] [address] | + + + | Home Phone | | + + + | Preferred Language | Unknown | + + + | Marital Status | Single | + + + | Taoism Affiliation | 1013 | + + + | Race | Unknown | + + + | Ethnic Group | Unknown | + + + Author + + + | Author | [facility] | | | and [place]wayneana | + + + | Organization | [facility] | | | and [...] Team Providers + +------+ + | Care Shoe Stitcher Name | Role | Phone | + +------+ + | Matt Kinney MD | PCP | | + +------+ + Encounter Details +--------+ + + + + | Date | Type | Department | Care Team | Description | +--------+ + + + + | 03/17/ | Abstract | [facility] [place] | Zen Carey | Abnormal heart rate | | 2013 | [facility] | MD Macie Need updated | (Primary Dx); Poor | | | | [address] [facility], | address | circulation; | | | | [address] [place] | | Hyperlipidemia; | | | | [place] [address] | | Neuropathy; Thyroid | | | | [phone] | | disease; Depression; | | | | | | GERD | | | | | | (gastroesophageal | | | | | | reflux disease); | | | | | | Diabetes mellitus | | | | | | (HCC); Migraine; | | | | | | Seizure (HCC); DDD | | | | | | (degenerative disc | | | | | | disease), cervical | +--------+ + + + + Social [...] circulatory system disorder | + + | Hyperlipidemia Other and unspecified hyperlipidemia | + + | Neuropathy Mononeuritis of unspecified site | + + | Thyroid disease Unspecified disorder of thyroid | + + | Depression Depressive disorder, not elsewhere classified | + + | GERD (gastroesophageal reflux disease) Esophageal reflux | + + | Diabetes mellitus (HCC) Type II or unspecified type diabetes mellitus without mention | | of complication, not stated as uncontrolled | + + | Migraine Migraine, unspecified, without mention of intractable migraine without | | mention of status migrainosus | + + | Seizure (HCC) Other convulsions | + + | DDD (degenerative disc disease), cervical Degeneration of cervical intervertebral | | disc | + + documented in this encounter"
--- OUTSIDE RECORDS SUMMARY | ~2019-03-02 | XMS | Encounter Summary ---
Demographics + + + | Address | [address] | | | [place] [address] | + + + | Home Phone | | + + + | Preferred Language | Unknown | + + + | Marital Status | Single | + + + | Taoism Affiliation | 1013 | + + + | Race | Unknown | + + + | Ethnic Group | Unknown | + + + Author + + + | Author | [facility] | | | and Dwayneana | + + + | Organization | [facility] | | | and Dwayneana [...] Team Providers + +------+ + | Care Motion Study Technician Name | Role | Phone | + +------+ + | Matt Kinney MD | PCP | | + +------+ + Encounter Details +--------+ + + + + | Date | Type | Department | Care Team | Description | +--------+ + + + + | 07/15/ | Hospital | [facility] | Bubba Maxwell | CAD (coronary artery | | 2015 | Encounter | MED CTR LABORATORY | MD Yimi [address] | disease); Pre-op | | | | [address] [place] | [address] [place] | evaluation | | | | [place], [place] | [place] [address] | | | | | [address] | [phone] | | | | | [phone] | | | +--------+ + + + [...] at | | | | | | ([email or web address] | | | | | | Performed: [facility], [address] | | | | [address], [place], [place] | | | | | | [address] | | | | + + + + + + + + | Specimen | + + | Blood specimen | | (specimen) | + + + + + + + | Performing | Address | City/State/Zipcode | Phone Number | | Organization | | | | + + + + + | [facility] | [address] | [place] [address] | [phone] | + + + + + documented in this encounter Visit Diagnoses + + | Diagnosis | + + | CAD (coronary artery disease) Coronary atherosclerosis of unspecified type of vessel, | | [place] or graft | + + | Pre-op evaluation Preoperative examination, unspecified | + + documented in this encounter"
--- OUTSIDE RECORDS SUMMARY | ~2019-03-02 | XMS | Encounter Summary ---
Demographics + + + | Address | [address] | | | [place] [address] | + + + | Home Phone | | + + + | Preferred Language | Unknown | + + + | Marital Status | Single | + + + | Sabianism Affiliation | 1013 | + + + | Race | Unknown | + + + | Ethnic Group | Unknown | + + + Author + + + | Author | [facility] | | | and Dwayneana | + + + | Organization | [facility] | | | and Dwayneana | + + + | Address | Unknown | + + + | Phone | Unavailable | + + + Support + + +---------+ + | Name | Relationship | Address | Phone | + + +---------+ + | Adnrew Couch | ECON | Unknown | | + + +---------+ + | Shilpa Couch | ECON | Unknown | | + + +---------+ + Care Team Providers + +------+ + | Care Certified Detention Deputy Name | Role | Phone | + +------+ + | Matt Kinney MD | PCP | | + +------+ + Reason for Visit +--------+ + | Reason | Comments | +--------+ + | Other | | +--------+ + Encounter Details +--------+ + + + + | Date | Type | Department | Care Team | Description | +--------+ + + + + | 08/18/ | Telephone | [facility] [place] | Gael Adam, | Other | | 2014 | | PHYSIATRY [address] | MD [address] | | | | | [place], | [place], [place] | | | | | [place] [address] | [address] | | | | | [phone] | | | +--------+ + + + [...]
--- OUTSIDE RECORDS SUMMARY | ~2019-03-02 | XMS | Encounter Summary ---
Demographics + + + | Address | [address] | | | [place] [address] | + + + | Home Phone | | + + + | Preferred Language | Unknown | + + + | Marital Status | Single | + + + | Quaker Affiliation | 1013 | + + + | Race | Unknown | + + + | Ethnic Group | Unknown | + + + Author + + + | Author | [facility] | | | and Dwayneana | + + + | Organization | [facility] | | | and [...] Team Providers + +------+ + | Care Director Of Research Name | Role | Phone | + +------+ + | Matt Kinney MD | PCP | | + +------+ + Encounter Details +--------+ + + + + | Date | Type | Department | Care Team | Description | +--------+ + + + + | 08/04/ | Hospital | [facility] | Bubba Maxwell | Carotid artery | | 2015 | Encounter | MED CTR ULTRASOUND | MD Yimi [address] | disease (HCC) | | | | [address] [place] | [address] [place] | | | | | [place], [place] | [place] [address] | | | | | [address] | [phone] | | | | | [phone] | | | | | | | Joshua Bright, | | | | | | Technologist | | +--------+ + + + [...] + + | VAS CAROTID DUPLEX | Routin | 08/04/2014 | Carotid artery | Results for this | | BILATERAL | e | 1:47 PM | disease (HCC) | procedure are in the | | | | PDT | | results section. | + +--------+ + + + documented in this encounter Results VAS Carotid Duplex Bilateral (08/04/2014 1:47 PM PDT) + + | Specimen | + + | | + + + + + | Narrative | Performed At | + + + | BILATERAL DUPLEX CAROTID ULTRASOUND 08/04/2014 1:00 PM CLINICAL | [facility] | | HISTORY: carotid artery disease, history of endarterectomy | [facility] | | COMPARISON: CAROTID ULTRASOUND MARCH 2011 FINDINGS: Grayscale, | [facility] | | color Doppler and duplex Doppler interrogation of the bilateral | - IMAGING | | cervical carotid arteries is performed. All reported velocities are | | | in cm/sec. ANTERIOR CIRCULATION: Right: CCA: 95/32; bulb: | | | 130/41; ECA: 160/38; ICA: 97/33 (ICA/CCA 1.0, previously 177/16 with | | | ICA/CCA 1.9) Left: CCA: 95/36; bulb: 140/46; ECA: 180/26; ICA: | | | 150/45 (ICA/CCA 1.5, previously 130/58 with ICA/CCA 1.5) | | | Posterior circulation: Antegrade flow is documented within both | | | vertebral arteries. Grayscale findings: Changes of endarterectomy | | | are now visible at the level of the right carotid bulb, and only | | | mild residual/recurrent plaque is present in this region. | | | Progressive eccentric mildly echogenic plaque formation is noted in | | | the mid left common carotid artery, and mildly progressive eccentric, | | | echogenic plaque formation is noted at the level of the left carotid | | | bulb and origin of the internal carotid artery. IMPRESSION - 1. | | | NO EVIDENCE OF RESIDUAL HEMODYNAMICALLY SIGNIFICANT RIGHT CERVICAL | | | CAROTID STENOSIS COMPARED WITH ULTRASOUND OF MARCH 2011, STATUS | | | POST ENDARTERECTOMY. 2. SLIGHT PROGRESSION OF ECCENTRIC | | | ECHOGENIC PLAQUE FORMATION AND PEAK SYSTOLIC VELOCITY ELEVATION IN | | | THE LEFT CAROTID BULB AND PROXIMAL INTERNAL CAROTID ARTERY, | | | CORRESPONDING WITH 50-69% STENOSIS BASED ON PEAK SYSTOLIC VELOCITY AND | | | LESS THAN 50% STENOSIS BASED ON ICA/CCA RATIO. CONSIDER FOLLOW-UP | | | CTA OR MRA IF MORE ACCURATE CHARACTERIZATION OF VESSEL CALIBER IS | | | DESIRED Dictated and Signed by: Fran Ruiz MD Electronically | | | signed: 08/04/2014 4:53 PM | | + + + + + | Procedure Note | + + | John, Rad Results In - 08/04/2014 4:56 PM PDT BILATERAL DUPLEX CAROTID ULTRASOUND | | 08/04/2014 1:00 PMCLINICAL HISTORY: carotid artery disease, history of | | endarterectomyCOMPARISON: CAROTID ULTRASOUND MARCH 2011FINDINGS: Grayscale, color | | Doppler and duplex Doppler interrogation of thebilateral cervical carotid arteries is | | performed. All reported velocities arein cm/sec.ANTERIOR CIRCULATION:Right: CCA: 95/32; | | bulb: 130/41; ECA: 160/38; ICA: 97/33 (ICA/CCA 1.0,previously 177/16 with ICA/CCA | | 1.9)Left: CCA: 95/36; bulb: 140/46; ECA: 180/26; ICA: 150/45 (ICA/CCA 1.5,previously | | 130/58 with ICA/CCA 1.5)Posterior circulation: Antegrade flow is documented within both | | vertebralarteries.Grayscale findings: Changes of endarterectomy are now visible at the | | level ofthe right carotid bulb, and only mild residual/recurrent plaque is present | | inthis region. Progressive eccentric mildly echogenic plaque formation is notedin the | | mid left common carotid artery, and mildly progressive eccentric,echogenic plaque | | formation is noted at the level of the left carotid bulb andorigin of the internal | | carotid artery.IMPRESSION -1. NO EVIDENCE OF RESIDUAL HEMODYNAMICALLY SIGNIFICANT | | RIGHT CERVICAL CAROTIDSTENOSIS COMPARED WITH ULTRASOUND OF MARCH 2011, STATUS POST | | ENDARTERECTOMY.2. SLIGHT PROGRESSION OF ECCENTRIC ECHOGENIC PLAQUE FORMATION AND PEAK | | SYSTOLICVELOCITY ELEVATION IN THE LEFT CAROTID BULB AND PROXIMAL INTERNAL CAROTIDARTERY, | | CORRESPONDING WITH 50-69% STENOSIS BASED ON PEAK SYSTOLIC VELOCITY ANDLESS THAN 50% | | STENOSIS BASED ON ICA/CCA RATIO. CONSIDER FOLLOW-UP CTA OR MRA IFMORE ACCURATE | | CHARACTERIZATION OF VESSEL CALIBER IS DESIREDDictated and Signed by: Fran Ruiz MD | | Electronically signed: 08/04/2014 4:53 PM | |the right carotid bulb, and only mild residual/recurrent plaque is present in | |this region. Progressive eccentric mildly echogenic plaque formation is noted | |in the mid left common carotid artery, and mildly progressive eccentric, | |echogenic plaque formation is noted at the level of the left carotid bulb and | |origin of the internal carotid artery. | | | |IMPRESSION - | |1. NO EVIDENCE OF RESIDUAL HEMODYNAMICALLY SIGNIFICANT RIGHT CERVICAL CAROTID | |STENOSIS COMPARED WITH ULTRASOUND OF MARCH 2011, STATUS POST ENDARTERECTOMY. | | | |2. SLIGHT PROGRESSION OF ECCENTRIC ECHOGENIC PLAQUE FORMATION AND PEAK SYSTOLIC | |VELOCITY ELEVATION IN THE LEFT CAROTID BULB AND PROXIMAL INTERNAL CAROTID | |ARTERY, CORRESPONDING WITH 50-69% STENOSIS BASED ON PEAK SYSTOLIC VELOCITY AND | |LESS THAN 50% STENOSIS BASED ON ICA/CCA RATIO. CONSIDER FOLLOW-UP CTA OR MRA IF | |MORE ACCURATE CHARACTERIZATION OF VESSEL CALIBER IS DESIRED | | | |Dictated and Signed by: Fran Ruiz MD | | Electronically signed: 08/04/2014 4:53 PM | + + + + + + + | Performing | Address | City/State/Zipcode | Phone Number | | Organization | | | | + + + + + | [facility] | [address] | [place], [place] | [phone] | | [facility] | | [address] | | | - IMAGING | | | | + + + + + documented in this encounter Visit Diagnoses + + | Diagnosis | + + | Carotid artery disease (HCC) Unspecified disorders of arteries and arterioles | + + documented in this encounter"
--- OUTSIDE RECORDS SUMMARY | ~2019-03-02 | XMS | Encounter Summary ---
Demographics + + + | Address | [address] | | | [place] [address] | + + + | Home Phone | | + + + | Preferred Language | Unknown | + + + | Marital Status | Single | + + + | Congregational Affiliation | 1013 | + + + | Race | Unknown | + + + | Ethnic Group | Unknown | + + + Author + + + | Author | [facility] | | | and Dwayneana | + + + | Organization | [facility] | | | and Dwayneana [...] Team Providers + +------+ + | Care Docent Coordinator Name | Role | Phone | + +------+ + | Matt Kinney MD | PCP | | + +------+ + Reason for Visit +--------+ + | Reason | Comments | +--------+ + | Other | MRI orders | +--------+ + Encounter Details +--------+ + + + + | Date | Type | Department | Care Team | Description | +--------+ + + + + | 01/06/ | Telephone | [facility] [place] | Gael Adam, | Other (MRI orders) | | 2013 | | PHYSIATRY [address] | MD [address] | | | | | [place], | [place], [place] | | | | | [place] [address] | [address] | | | | | [phone] | | | +--------+ + + + [...]
--- OUTSIDE RECORDS SUMMARY | ~2019-03-02 | XMS | Encounter Summary ---
Demographics + + + | Address | [address] | | | [place] [address] | + + + | Home Phone | | + + + | Preferred Language | Unknown | + + + | Marital Status | Single | + + + | Lutheran Affiliation | 1013 | + + + | Race | Unknown | + + + | Ethnic Group | Unknown | + + + Author + + + | Author | [facility] | | | and Dwayneana | + + + | Organization | [facility] | | | and [...] Team Providers + +------+ + | Care Deboner Name | Role | Phone | + [...] | Mitral | Bubba | [address] | | | | | valve | MD Yimi | [place], | | | | | insufficienc | [address] | [place] | | | | | y, | St [place] | [address] | | | | | unspecified | [place], [place] | Phone: | | | | | etiology | [address] | [phone] | | | | | Procedures | Phone: | Fax: | | | | | ECHO | [phone] | [phone] | | | | | Transesophag | Fax: | | | | | | eal (IAIN) | [phone] | | | | | | TN ECHO | | | | | | | TRANSESOPHAG | | | | | | | R-T 2D | | | | | | | W/PRB IMG | | | | | | | ACQUISJ I&R | | | | | | | TN DOPPLER | | | | | | | ECHO | | | | | | | HEART,COMPLE | | | | | | | TE TN | | | | | | | [...] + + | 11/27/ | Office | [facility] | Bubba Ornelas | Abnormal heart rate | | 2017 | Visit | CARDIOLOGY [address] | MD Yimi [address] | (Primary Dx); Poor | | | | [place], | [address] [place] | circulation; | | | | [place] [address] | [place] [address] | Stenosis of carotid | | | | [phone] | [phone] | artery, unspecified | | | | [...] Echocardiogram-IAIN Date: Check-In Time: Check in at [facility] Instructions: 1. Nothing to eat or drink 6 hours prior 2. Take all of your regular medications the morning of the procedure with a small sip of w ater. 3. The procedure lasts approximately one-half hour 4. You will stay in same day surgery for approximately 2 hours after the procedure. 5. Make sure you have a dedicated local truck driver to take you home from the procedure. Your dedicated local truck driver will ne ed to sign [...] initially referred by her primary provider Margie Naranjo PA-C for further consultatio n after recent complaints of exertional dyspnea and chest heaviness. Patient underwent inva sive workup in 2014 which revealed multivessel CAD as detailed above - as part of preoperati ve evaluation but never returned for follow-up visit and moved to [place], having only ret urned recently. She ended up undergoing cervical fusion surgery in [place] and did not brown ve any further [...] CV LHC; Surgeon: Bubba Ornelas MD; Location: [facility] [place] CV LAB CARDIAC CATHERIZATION N/A 11/13/2017 Procedure: CV LHC; Surgeon: Bubba Ornelas MD; Location: [facility] [place] CV LAB HYSTERECTOMY 1975 [place] LYMPH NODE BIOPSY 1971 [place] NASAL SINUS SURGERY 1987 OTHER SURGICAL HISTORY Left 07/28/2014 Procedure: LEFT HEART CATH; Surgeon: Bubba Ornelas MD; Location: [facility] [place] CARDIO VASC ULAR LAB ROTATOR CUFF REPAIR [...] reviewed by me with the patient today: [facility] 11/13/2017, interpreted and reviewed by me [...] f rom consideration of consultation with an film booker if feasible. Patient also would b enefit [...] made to ensure accuracy; however, inadvertent computerized assembly machine tender errors may be pre sent. Electronically signed by: Rafael Ornelas MD PhD [facility] 11/27/2017 documented in t his encounter Plan [...] (IAIN) Demographics Patient | | | Name [facility] Room Number [facility] | | | LAB ROSALIE | | | POOL Patient Number [id number] Date of Study | | | 12/25/2017 Visit Number [id number] Accession | | | [id number] Interpreting YIMI ORNELAS MD Number | | | Physician Date of 1950 | | | Referring YIMI ORNELAS MD | | | Physician Age 67 | | | year(s) Chronometer Tester LIZETH SUMNER [facility] Gender | | | Female Nurse | | | Stress Choir Member Procedure Type of Study IAIN | | [...] | Procedure Note | + + | Jesu Lopez Results In - 12/25/2017 7:13 PM PDT Transesophageal Echocardiography Report | | (IAIN) Demographics Patient Name [facility] Room Number [facility] | | [facility] ROSALIE KAUFMAN Patient Number | | [id number] Date of Study 12/25/2017 Visit Number [id number] Accession | | [id number] Interpreting YIMI ORNELAS MD Number | | Physician Date of 1950 Referring YIMI ORNELAS MD | | Physician Age 67 year(s) Chronometer Tester LIZETH | | BIANCA SUMNER Gender Female [...]
--- OUTSIDE RECORDS SUMMARY | ~2019-03-02 | XMS | Encounter Summary ---
Demographics + + + | Address | [address] | | | [place] [address] | + + + | Home Phone [...] Author | [facility] | | | and Dwayneana | + + + | Organization | [facility] | | | and [...] Team Providers + +------+ + | Care Detention Officer Name | Role | Phone | + +------+ + | Matt Kinney MD | PCP | | + +------+ + Reason for Visit +--------+ + | Reason | Comments | +--------+ + | Other | Patient would like orders for imaging sent to [facility] | +--------+ + Encounter Details +--------+ + + + + | Date | Type | Department | Care Team | Description | +--------+ + + + + | 05/26/ | Telephone | [facility] | Nestor Nice | Other (Patient would | | 2014 | | SURGERY [address] | MD [place], FACS [address] | like orders for | | | | [place], [place] | [facility] | imaging sent to [facility] | | | | [address] | [place] [address] | Ly) | | | | [phone] | [phone] | | | | | | | [...]
--- OUTSIDE RECORDS SUMMARY | ~2019-03-02 | XMS | Encounter Summary ---
Demographics + + + | Address | [address] | | | [place] [address] | + + + | Home Phone | | + + + | Preferred Language | Unknown | + + + | Marital Status | Single | + + + | Catholic Affiliation | 1013 | + + + | Race | Unknown | + + + | Ethnic Group | Unknown | + + + Author + + + | Author | [facility] | | | and Dwayneana | + + + | Organization | [facility] | | | and [...] Team Providers + +------+ + | Care Plug Saw Operator Name | Role | Phone | + +------+ + | Margie Gonzalez | PCP | | + +------+ + Encounter Details +--------+ + + + + | Date | Type | Department | Care Team | Description | +--------+ + + + + | 10/09/ | Abstract | [facility] [place] | Bubba Maxwell | Heart valve replaced | | 2019 | | CARDIOLOGY [address] | MD Yimi [address] | | | | | [place], | [address] [place] | | | | | [place] [address] | [place] [address] | | | | | [phone] | [phone] | | | | | | | [...] | EXTERNAL LAB: NATHANIEL | Routin | 09/26/2018 | | Results for this | | | e | | | procedure are in the | | | | | | results section. | + +--------+ + + + | EXTERNAL LAB: | Routin | 09/26/2018 | | Results for this | | GLUCOSE | e | | | procedure are in the | | | | | | results section. | + +--------+ + + + | EXTERNAL LAB: ALT | Routin | 09/26/2018 | | Results for this | | | e | | | procedure are in the | | | | | | results section. | + +--------+ + + + | EXTERNAL LAB: AST | Routin | 09/26/2018 | | Results for this | | | e | | | procedure are in the | | | | | | results section. | + +--------+ + + + | EXTERNAL LAB: | Routin | 09/26/2018 | | Results for this | | ALKALINE PHOSPHATASE | e | | | procedure are in the | | | | | | results section. | + +--------+ + + + | EXTERNAL LAB: | Routin | 09/26/2018 | | Results for this | | BILIRUBIN, TOTAL | e | | | procedure are in the | | | | | | results section. | + +--------+ + + + | EXTERNAL LAB: | Routin | 09/26/2018 | | Results for this | | ALBUMIN | e | | | procedure are in the | | | | | | results section. | + +--------+ + + + | EXTERNAL LAB: | Routin | 09/26/2018 | | Results for this | | PROTEIN, TOTAL | e | | | procedure are in the | | | | | | results section. | + +--------+ + + + | EXTERNAL LAB: | Routin | 09/26/2018 | | Results for this | | CALCIUM | e | | | procedure are in the | | | | | | results section. | + +--------+ + + + | EXTERNAL LAB: CARBON | Routin | 09/26/2018 | | Results for this | | DIOXIDE | e | | | procedure are in the | | | | | | results section. | + +--------+ + + + | EXTERNAL LAB: | Routin | 09/26/2018 | | Results for this | | CHLORIDE | e | | | procedure are in the | | | | | | results section. | + +--------+ + + + | EXTERNAL LAB: | Routin | 09/26/2018 | | Results for this | | POTASSIUM | e | | | procedure are in the | | | | | | results section. | + +--------+ + + + | EXTERNAL LAB: SODIUM | Routin | 09/26/2018 | | Results for this | | | e | | | procedure are in the | | | | | | results section. | + +--------+ + + + | EXTERNAL LAB: CBC | Routin | 09/26/2018 | | Results for this | | | e | | | procedure are in the | | | | | | results section. | + +--------+ + + + | EXTERNAL LAB: | Routin | 09/26/2018 | | Results for this | | CREATININE | e | | | procedure are in the | | | | | | results section. | + +--------+ + + + | [facility] WITH | Routin | 09/26/2018 | | Results for this | | DIFFERENTIAL | e | | | procedure are in the | | | | | | results section. | + +--------+ + + + | BASIC METABOLIC | Routin | 09/26/2018 | | Results for this | | PANEL | e | | | procedure are in the | | | | | | results section. | + +--------+ + + + documented in this encounter Results External Lab: ALT (09/26/2018) + +-------+ + + + | Component | Value | Ref Range | Performed | Pathologist | | | | | At | Signature | + +-------+ + + + | ALT, | 23 | | | | | External | | | | | + +-------+ + + + External Lab: AST (09/26/2018) + +-------+ + + + | Component | Value | Ref Range | Performed | Pathologist | | | | | At | Signature | + +-------+ + + + | AST, | 22 | | | | | External | | | | | + +-------+ + + + External Lab: Alkaline Phosphatase (09/26/2018) + +-------+ + + + | Component | Value | Ref Range | Performed | Pathologist | | | | | At | Signature | + +-------+ + + + | ALP, | 184 | | | | | External | | | | | + +-------+ + + + External Lab: Bilirubin, Total (09/26/2018) + +-------+ + + + | Component | Value | Ref Range | Performed | Pathologist | | | | | At | Signature | + +-------+ + + + | Bilirubin, | 0.5 | | | | | Total, | | | | | | External | | | | | + +-------+ + + + External Lab: Albumin (09/26/2018) + +-------+ + + + | Component | Value | Ref Range | Performed | Pathologist | | | | | At | Signature | + +-------+ + + + | Albumin, | 3.4 | | | | | External | | | | | + +-------+ + + + External Lab: Protein, Total (09/26/2018) + +-------+ + + + | Component | Value | Ref Range | Performed | Pathologist | | | | | At | Signature | + +-------+ + + + | Protein, | 6.2 | | | | | Total, | | | | | | External | | | | | + +-------+ + + + Basic Metabolic Panel (09/26/2018) + +-------+ + + + | Component | Value | Ref Range | Performed | Pathologist | | | | | At | Signature | + +-------+ + + + | Anion Gap | 3 | mmol/L | | | + +-------+ + + + | BUN/Creatin | 25.6 | | | | | ine Ratio | | | | | + +-------+ + + + + + | Specimen | + + | Blood | + + CBC with Differential (09/26/2018) + +-------+ + + + | Component | Value | Ref Range | Performed | Pathologist | | | | | At | Signature | + +-------+ + + + | MPV, POC | 8.2 | | | | + +-------+ + + + | MCH, POC | 29.1 | | | | + +-------+ + + + | MCHC, POC | 32.3 | | | | + +-------+ + + + + + | Specimen | + + | Blood | + + External Lab: NATHANIEL (09/26/2018) + +-------+ + + + | Component | Value | Ref Range | Performed | Pathologist | | | | | At | Signature | + +-------+ + + + | BUN, | 23 | | | | | External | | | | | + +-------+ + + + External Lab: Glucose (09/26/2018) + +-------+ + + + | Component | Value | Ref Range | Performed | Pathologist | | | | | At | Signature | + +-------+ + + + | Glucose, | 215 | | | | | External | | | | | + +-------+ + + + External Lab: Calcium (09/26/2018) + +-------+ + + + | Component | Value | Ref Range | Performed | Pathologist | | | | | At | Signature | + +-------+ + + + | Calcium, | 9.0 | | | | | External | | | | | + +-------+ + + + External Lab: Carbon Dioxide (09/26/2018) + +-------+ + + + | Component | Value | Ref Range | Performed | Pathologist | | | | | At | Signature | + +-------+ + + + | Carbon | 32 | | | | | Dioxide, | | | | | | External | | | | | + +-------+ + + + External Lab: Chloride (09/26/2018) + +-------+ + + + | Component | Value | Ref Range | Performed | Pathologist | | | | | At | Signature | + +-------+ + + + | Chloride, | 103 | | | | | External | | | | | + +-------+ + + + External Lab: Potassium (09/26/2018) + +-------+ + + + | Component | Value | Ref Range | Performed | Pathologist | | | | | At | Signature | + +-------+ + + + | Potassium, | 4.7 | | | | | External | | | | | + +-------+ + + + External Lab: Sodium (09/26/2018) + +-------+ + + + | Component | Value | Ref Range | Performed | Pathologist | | | | | At | Signature | + +-------+ + + + | Sodium, | 138 | | | | | External | | | | | + +-------+ + + + External Lab: CBC (09/26/2018) + +-------+ + + + | Component | Value | Ref Range | Performed | Pathologist | | | | | At | Signature | + +-------+ + + + | WBC, | 5.5 | | | | | External | | | | | + +-------+ + + + | HGB, | 9.7 | | | | | External | | | | | + +-------+ + + + | HCT, | 30.0 | | | | | External | | | | | + +-------+ + + + | PLT, | 189 | | | | | External | | | | | + +-------+ + + + | RBC, | 3.33 | | | | | External | | | | | + +-------+ + + + | MCV, | 90 | | | | | External | | | | | + +-------+ + + + | RDW, | 21.9 | | | | | External | | | | | + +-------+ + + + External Lab: Creatinine (09/26/2018) + +-------+ + + + | Component | Value | Ref Range | Performed | Pathologist | | | | | At | Signature | + +-------+ + + + | Creatinine, | 0.9 | | | | | External | | | | | + +-------+ + + + + + | Specimen | + + | Blood | + + documented in this encounter Visit Diagnoses + + | Diagnosis | + + | Heart valve replaced Heart valve replaced by other means | + + documented in this encounter"
--- OUTSIDE RECORDS SUMMARY | ~2019-03-02 | XMS | Encounter Summary ---
Demographics + + + | Address | [address] | | | [place] [address] | + + + | Home Phone | | + + + | Preferred Language | Unknown | + + + | Marital Status | Single | + + + | Taoist Affiliation | 1013 | + + + | Race | Unknown | + + + | Ethnic Group | Unknown | + + + Author + + + | Author | [facility] | | | and [place]wayneana | + + + | Organization | [facility] | | | and Dwayneana [...] Team Providers + +------+ + | Care Food Service Employee Name | Role | Phone | + +------+ + | Margie Gonzalez | PCP | | + +------+ + Reason for Referral Evaluate & Treat (Routine) +--------+ + + + + + | Status | Reason | Specialty | Diagnoses / | Referred By | Referred To | | | | | Procedures | Contact | Contact | +--------+ + + + + + | Closed | Specialty | Cardiothoraci | Diagnoses | Maxood, | Talib, | | | Services | c Surgery | Mitral | Bubba | MD Keisha | | | Required | | valve | MD Yimi | [address] | | | | | insufficienc | [address] | [address] [place], | | | | | y, | [place] | [place] [address] | | | | | unspecified | [place], [place] | Phone: | | | | | etiology | [address] | [phone] | | | | | Coronary | Phone: | Fax: | | | | | artery | [phone] | [phone] | | | | | disease, | Fax: | | | | | | angina | [phone] | | | | | | presence | | | | | | | unspecified, | | | | | | | unspecified | | | | | | | vessel or | | | | | | | lesion type, | | | | | | | unspecified | | | | | | | whether | | | | | | | [place] or | | | | | | | transplanted | | | | | | | heart | | | +--------+ + + + + + Reason for Visit + + + | Reason | Comments | + + + | Follow-up | | + + + Encounter Details +--------+---------+ + + + | Date | Type | Department | Care Team | Description | +--------+---------+ + + + | 02/14/ | Office | [facility] | Bubba Maxwell | Abnormal heart rate | | 2017 | Visit | CARDIOLOGY [address] | MD Y[address] | (Primary Dx); Poor | | | | [address] [place], | [address] [place] | circulation; | | | | [place] [address] | [place] [address] | Stenosis of carotid | | | | [phone] | [phone] | artery, unspecified | | | | | | laterality; | | | | | | Functional murmur; | | | | | | Hypertension, | | | | | | unspecified type; | | | | | | Mitral valve | | | | | | insufficiency, | | | | | | unspecified | | | | | | etiology; | | | | | | Hyperlipidemia, | | | | | | unspecified | | | | | | hyperlipidemia type; | | | | | | Tobacco use | | | | | | disorder; Coronary | | | | | | artery disease, | | | | | | angina presence | | | | | | unspecified, | | | | | | unspecified vessel | | | | | | or lesion type, | | | | | | unspecified whether | | | | | | [place] or | | | | | | transplanted heart | +--------+---------+ + + + Social History [...] + + + | Blood Pressure | 124/70 | 02/14/2018 12:54 PM | | | | | PDT | | + + + + + | Pulse | 70 | 02/14/2018 12:54 PM | | | | | PDT | | + + + + + | Temperature | - | - | | + + + + + | Respiratory Rate | 16 | 02/14/2018 12:54 PM | | | | | PDT | | + + + + + | Oxygen Saturation | - | - | | + + + + + | Inhaled Oxygen | - | - | | | Concentration | | | | + + + + + | Weight | 52.5 kg (115 lb 11.9 | 02/14/2018 12:54 PM | | | | oz) | PDT | | + + + + + | Height | 165.1 cm (5' 5") | 02/14/2018 12:54 PM | | | | | PDT | | + + + + + | Body Mass Index | 19.26 | 02/14/2018 12:54 PM | | | | | PDT | | + + + + + documented in this encounter Progress Notes Bubba Maxwell MD - 02/14/2018 1:00 PM PDTFormatting of this note might be differe nt from the original. PATIENT NAME: Etelvina Benitez : 1950: AGE: 67 y.o. REFERRED BY: Bubba Maxwell PRIMARY CARE: JACK Faustin Dr. CARDIOLOGY OFFICE VISIT Date of Service: 02/14/18 HISTORY OF PRESENT ILLNESS: Etelvina Benitez is a 67 y.o. female with a history of established carotid artery disease, multivessel CAD, poorly controlled diabetes, hyperlipidemia, mitral insufficiency, and ongo ing tobacco use here for a follow-up visit. Since our last visit, she underwent transesopha geal echocardiography which confirmed severe MR. Previously she underwent left heart cathet erization and coronary angiography which revealed multivessel CAD as detailed below. She de nies any chest pain but continues to experience some exertional dyspnea. Unfortunately she continues to smoke, approximately one [...] N/A 08/28/2017 Procedure: CV LHC; Surgeon: Bubba Maxwell MD; Location: [facility] CV LAB CARDIAC CATHERIZATION N/A 11/13/2017 Procedure: CV LHC; Surgeon: Bubba Maxwell MD; Location: [facility] CV LAB HYSTERECTOMY 1975 [place] LYMPH NODE BIOPSY 1971 [place] NASAL SINUS SURGERY 1988 OTHER SURGICAL HISTORY Left 07/28/2014 Procedure: LEFT HEART CATH; Surgeon: Bubba Maxwell MD; Location: [facility] CARDIO VASC ULAR LAB ROTATOR CUFF REPAIR Right shoulder TONSILLECTOMY 1987 UVULOPALATOPHARYGOPLASTY 1987 Family History Problem Relation Age of Onset [...] capsule Take 60 mg by mouth Daily. Insulin Glargine (TOUJEO [...] by mouth every morning (before breakfast ). No current facility-administered medications for this visit. ALLERGIES Allergies Allergen Reactions Oxycodone Itching Oxycontin intolarant: Oxycodone tolerates. ROS I have reviewed the Review of Systems form dated today and scanned into the media tab. OBJECTIVE: PHYSICAL EXAM BP 124/70 | Pulse 70 | Resp 16 | Ht 1.651 m (5' 5") | Wt 52.5 kg (115 lb 11.9 oz) | BM I 19.26 kg/m Physical Exam Constitutional: She appears well-developed and well-nourished. She does not appear ill. No distress. Cardiovascular: Normal rate, regular rhythm, S1 normal, S2 normal and intact distal pulses. Murmur heard. High-pitched blowing holosystolic murmur is present with a grade of 2/6 at the apex Pulses: Carotid pulses are 2+ on the right side, and 2+ on the left side. Radial pulses are 2+ on the right side, and 2+ on the left side. Dorsalis pedis pulses are 2+ on the right side, and 2+ on the left side. Pulmonary/Chest: Effort normal and breath sounds normal. Musculoskeletal: She exhibits no edema. Vitals reviewed. ECG: Normal sinus rhythm, heart [...] reviewed by me with the patient today: LHC 11/13/2017, interpreted and reviewed by me with the patient today: Proximally occluded d ominant RCA with mild to moderate diffuse disease of the LAD and a significant stenosis in t he midportion of the diffusely narrowed LCx. There is a right dominant circulation. Normal L V systolic function Systemic blood pressure is mildly elevated. Normal LV size and systolic function with moderate MR. Cardiovascular diagnostic testing interpreted and reviewed by me with the patient today: Transesophageal echocardiogram 12/25/2017: Results interpreted and reviewed by me and the pat ient today: Left ventricle is mildly enlarged with LVEDD 61 mm and LVESD 46 mm. There is mil d systolic dysfunction with LVEF calculated at 47%. Left atrium is moderately enlarged. Left atrial appendage is without in situ thrombus/clot. Mitral valve is mild to moderately thick ened with borderline bileaflet prolapse and mild annular calcification. There is a central j et of severe insufficiency with high degree of aliasing. ASSESSMENT: 1. CAD - patient was shown to have three-vessel CAD as detailed above on her angiogram in 2014 and this appears to be relatively unchanged on her recent angiogram. Given evidence of severe MR, patient would benefit from consideration of open heart surgery. I will refer he r to my colleague Dr. Tavarez for further consultation. 2. Hyperlipidemia - her target LDL should be less than 70 mg/dL given her established cor onary and carotid disease. For now we will continue with atorvastatin 80 mg daily. She wou ld benefit from a recheck of her fasting lipid profile periodically. 3. Diabetes mellitus - patient continues to exhibit poor control and will likely benefit f rom consideration of consultation with an jewelry manager if feasible. Patient also would b enefit [...] pulmonary consultation. 6. Mitral regurgitation - this was found to be severe on transesophageal echocardiography, and patient would benefit from consideration of surgical repair versus replacement. Given coexistence of multivessel CAD, I have recommended that the patient be initially seen for fu rther consultation by my colleague Dr. Tavarez in [place]. In the meanwhile I have asked the p atient to strongly work on tobacco cessation as well as improving her diabetic control. PLAN: 1. No further cardiovascular diagnostics for now. 2. Carotid duplex ultrasound examination within one year. 3. Tobacco cessation. 4. Continue current medications for now. 5. Improved diabetic control. Recommend endocrinology consultation. 6. Continued consultation with pulmonology regarding likely underlying COPD. 7. Follow-up visit in 2-3 months. 8. Recheck fasting lipid profile periodically. 9. CT surgery consultation. Portions of this report were transcribed using voice recognition software. Every effort wa s made to ensure accuracy; however, inadvertent computerized machine greaser errors may be pre sent. Electronically signed by: Rafael Maxwell MD PhD FACC 02/14/2018 documented in t his encounter Plan of Treatment + + +--------+ + + | Name | Type | Priori | Associated Diagnoses | Order Schedule | | | | ty | | | + + +--------+ + + | External Referral to | Outpatient | Routin | Mitral valve | Ordered: 02/15/2018 | | Cardiothoracic | Referral | e | insufficiency, | | | Surgery | | | unspecified etiology | | | | | | Coronary artery | | | | | | disease, angina | | | | | | presence | | | | | | unspecified, | | | | | | unspecified vessel | | | | | | or lesion type, | | | | | | unspecified whether | | | | | | [place] or | | | | | | transplanted heart | | + + +--------+ + + documented as of this encounter [...] insufficiency, unspecified etiology | + + | Hyperlipidemia, unspecified hyperlipidemia type | + + | Tobacco use disorder | + + | Coronary artery disease, angina presence unspecified, unspecified vessel or lesion | | type, unspecified whether [place] or transplanted heart | + + documented in this encounter
--- OUTSIDE RECORDS SUMMARY | ~2019-03-02 | XMS | Encounter Summary ---
Demographics + + + | Address | [address] | | | [place] [address] | + + + | Home Phone [...] Author | [facility] | | | and [place] | + + + | Organization | [facility] | | | and [place] | [...] Team Providers + +------+ + | Care Dough Machine Operator Name | Role | Phone [...] Description | +--------+---------+ + + + | 01/15/ | Office | [facility] | Bubba Maxwell | Abnormal heart rate | | 2019 | Visit | CARDIOLOGY [address] | MD Yimi [address] | (Primary Dx); | | | | [place], | [address] [place] | Stenosis of carotid | | | | [place] [address] | [place] [address] | artery, unspecified | | | | [phone] | [phone] | laterality; | | | | | | Essential | | | | | | hypertension; | | | | | | Functional murmur; | | | | | | Heart valve | | | | | | replaced; Mitral | | | | | | valve insufficiency, | | | | | | unspecified | | | | | | etiology; Mixed | | | | | | hyperlipidemia; SOB | | | | | | (shortness of | | | | | | breath) | +--------+---------+ + + + Social History + + + +--------+ + | Tobacco Use | Types | Packs/Day | Years | Date | | | | | Used | | + + + +--------+ + | Former Smoker | Cigarettes | 1 | 37 | Quit: 09/03/2018 | + + + +--------+ + + +---+---+---+ | Smokeless Tobacco: | | [...] + + + | Blood Pressure | 112/76 | 01/15/2019 2:12 PM | | | | | PDT | | + + + + + | Pulse | 72 | 01/15/2019 2:12 PM | | | | | PDT | | + + + + + | Temperature | - | - | | + + + + + | Respiratory Rate | 16 | 01/15/2019 2:12 PM | | | | | PDT | | + + + + + | Oxygen Saturation | - | - | | + + + + + | Inhaled Oxygen | - | - | | | Concentration | | | | + + + + + | Weight | 53.1 kg (117 lb) | 01/15/2019 2:12 PM | | | | | PDT | | + + + + + | Height | 165.1 cm (5' 5") | 01/15/2019 2:12 PM | | | | | PDT | | + + + + + | Body Mass Index | 19.47 | 01/15/2019 2:12 PM | | | | | PDT | | + + + + + documented in this encounter Progress Notes Bubba Maxwell MD - 01/15/2019 3:00 PM PDTFormatting of this note might be differe nt from the original. PATIENT NAME: Etelvina Benitez : 1950: AGE: 68 y.o. REFERRED BY: Bubba Maxwell MD PRIMARY CARE: JACK Faustin Dr. CARDIOLOGY OFFICE VISIT Date of Service: 01/15/19 HISTORY OF PRESENT ILLNESS: Etelvina Benitez is a 68 y.o. female with a history of established carotid artery disease, multivessel CAD status post CABG 1, poorly controlled diabetes, hyperlipidemia, severe mi tral insufficiency status post mitral valve replacement, and tobacco use here for a follow-u p visit. She presents alone today. Previously she had presented with her [id number] [place] perry. Since our last visit, she has been doing well without any chest pain or exertional symptoms . She continues to have suboptimal diabetic control. Prior to our last visit, she underwen t transesophageal echocardiography which confirmed severe MR. thereafter he was referred to [facility] in [place], where she underwent mitral valve replacement with a tiss ue valve, given that repair was not feasible, along with CABG x1, and SVG to the RCA, from w hich she recovered rather slowly. She suffered postoperative confusion and encephalopathy w hich slowly resolved. She also experienced acute renal insufficiency which has mostly resol cristina since then. Postoperatively, she continues to refrain from smoking. She also has imple mented significant dietary improvements. Pertinent historical clinical information: She was initially referred by her primary provider Margie Naranjo PA-C for further consultatio n after recent complaints of exertional dyspnea and chest heaviness. Patient underwent inva sive workup in 2014 which revealed multivessel CAD as detailed above - as part of preoperati ve evaluation but never returned for follow-up visit and moved to [place], having only ret urned recently. She ended up undergoing cervical fusion surgery in [place] and did not brown ve any further [...] CV LHC; Surgeon: Bubba Maxwell MD; Location: [facility] CV LAB CARDIAC CATHERIZATION N/A 11/13/2017 Procedure: CV LHC; Surgeon: Bubba Maxwell MD; Location: [facility] CV LAB CORONARY ARTERY BYPASS GRAFT 09/03/2018 Boby Bernard MD HYSTERECTOMY 1976 [place] LYMPH NODE BIOPSY 1971 [place] MITRAL VALVE REPLACEMENT 09/03/2018 NASAL SINUS SURGERY 1988 OTHER SURGICAL HISTORY Left 07/28/2014 Procedure: LEFT HEART CATH; Surgeon: Bubba Maxwell MD; Location: 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 daily Living situation: with boyfriend CURRENT MEDICATIONS Current Outpatient Medications Medication Sig Dispense Refill albuterol (VENTOLIN HFA) 90 mcg/puff inhaler Inhale into the lungs as needed. ALPRAZolam (XANAX) 0.25 mg tablet Take 0.25 mg by mouth as needed. aspirin 81 mg EC tablet Take 81 mg by mouth Daily. atorvaSTATin (LIPITOR) 10 mg tablet Take 10 mg by mouth Daily. BD ULTRA-FINE MICRO PEN NEEDLE 32G X 6 MM MISC Inject 1 Box under the skin every evenin g. carvedilol (COREG) 12.5 mg tablet Take 12.5 mg by mouth 2 times daily (with breakfast & dinner). DULoxetine (CYMBALTA) 60 MG capsule Take 60 mg by mouth Daily. insulin glargine (TOUJEO SOLOSTAR) 300 units/mL concentrated injection (pen) Inject 20 Units under the skin nightly. levothyroxine (SYNTHROID) 100 mcg tablet Take 100 [...] Reactions Oxycodone Itching Oxycontin intolarant: Oxycodone tolerates. Oxycontin intolarant: Oxycodone tolerates. Oxycontin intolarant: Oxycodone tolerates. Oxycontin intolarant: Oxycodone tolerates. ROS I have reviewed the Review of Systems form dated today and scanned into the media tab. OBJECTIVE: PHYSICAL EXAM BP 112/76 | Pulse 72 | Resp 16 | Ht 1.651 m (5' 5") | Wt 53.1 kg (117 lb) | BMI 19.47 kg/m Physical Exam Constitutional: She appears well-developed and well-nourished. She does not appear ill. No distress. Cardiovascular: Normal rate, regular rhythm, S1 normal, S2 normal, normal heart sounds and intact distal pulses. Pulses: Carotid pulses are 2+ on the right side, and 2+ on the left side. Radial pulses are 2+ on the right side, and 2+ on the left side. Dorsalis pedis pulses are 2+ on the right side, and 2+ on the left side. Pulmonary/Chest: Effort normal and breath sounds normal. Healing sternotomy scar noted. Musculoskeletal: She exhibits no edema. Skin: Erythema and slight induration noted over right lower extremity EVH site. Vitals reviewed. ECG: Reviewed by me notable for normal sinus rhythm, heart rate 85, nonspecific inferolater al T wave abnormalities. Previous ECG: normal sinus rhythm, heart rate 87, diffuse nonspeci fic T wave abnormality, abnormal ECG. LAB RESULTS: LIPID Lab Results Component Value Date CHOLHDL 3.0 01/14/2019 LDLEX 148 (A) 01/14/2019 HDLEX 78.8 01/14/2019 TRIGEX 59 01/14/2019 CHOLEX 239 (A) 01/14/2019 CHEMISTRY Lab Results Component Value Date GLU 121 (H) 07/28/2014 NA 140 07/28/2014 K 4.4 07/28/2014 CL 106 07/28/2014 CO2 24 07/28/2014 CALCIUM 9.2 07/28/2014 CREA 1.05 07/28/2014 BUN 13 07/28/2014 EGFREX 54 01/14/2019 CREEX 1.01 01/14/2019 HEMATOLOGY Lab Results Component Value Date HGBEX 11.9 (A) 01/14/2019 BNP 365 (June 2017) A1C 01/14/2019: 9.2 HbA1c 11.2, EAG 275 Nuclear stress perfusion [...] severe MR, moderate left atrial enlargement. Cardiovascular diagnostics below reviewed by me with the patient today: Left heart catheterization and coronary angiography 11/13/2017, interpreted and reviewed by me with the patient today: Proximally occluded dominant RCA with mild to moderate diffuse di sease of the LAD and a significant stenosis in the midportion of the diffusely narrowed LCx. There is a right dominant circulation. Normal LV systolic function Systemic blood pressure is mildly elevated. Normal LV size and systolic function with moderate MR. Transesophageal echocardiogram 12/25/2017: Results interpreted and reviewed [...] severe insufficiency with high degree of aliasing. CABG x1 with mitral valve replacement - [address] [facility] Epic tissue valve and left atrial mauro endage obliteration - 09/03/[address] Boby Terry - [facility] for saphenous vein graft to RCA. Will mitral valve repair not feasible due to heavily ca lcific mitral leaflets. Echocardiogram interpreted and reviewed by me today notable for normal LV size with systoli c function at the lower limit of normal, LVEF 50-55%, no significant valvular disease, mild left atrial enlargement. ASSESSMENT: 1. CAD - patient was shown to have three-vessel CAD as detailed above on her angiogram in 2014 and this appears to be relatively unchanged on her recent angiogram. Preoperatively, s he appears to have had a single vein graft to the RCA. Focus will remain on continued medic al therapy and risk factor reduction. Her statin dosage was decreased for unclear reasons with resultant significant increase in her LDL. I've asked her to up titrate her atorvastatin dosing to 40 mg daily and recheck a fasting lipid profile and LFTs within 4-6 weeks. She plans on following up with her primary physician for this. 2. Hyperlipidemia - her target LDL should be less than 70 mg/dL given her established cor onary and carotid disease. As stated above, we will increase her atorvastatin to 40 mg john y - previously he had been on 80 mg daily. She would benefit from a recheck of her fasting lipid profile periodically. 3. Diabetes mellitus - patient continues to demonstrate very poor diabetic control and she may benefit from consideration of consultation with an files supervisor if feasible. Nedra boykin also would benefit from further dietary education - she describes poor dietary choices in cluding frequent indulgence and ice cream and white bread. We had previously discussed conc ept of glycemic index which would benefit from future reinforcement. 3. Tobacco cessation - patient states that she is no longer smoking since discharge from [facility] and I have congratulated her on this. This would benefit from future reinforcem ent. 4. Carotid artery disease/PAD - patient may benefit from future noninvasive evaluation giv en her history of previous endarterectomy. She may also benefit from further assessment for lower extremity PAD. 5. Pulmonary - given patient's history of heavy tobacco use, she may benefit from consider ation of pulmonary function testing and possible pulmonary consultation re: potential of und erlying COPD. She was previously seen by pulmonary consultation. 6. Mitral regurgitation, status post mitral valve replacement - this was found to be sever e on transesophageal echocardiography, and patient underwent mitral valve replacement with a 26 mm tissue valve as detailed above. She would benefit from repeat echocardiography to re assess her valvular function as well as recovery of her LV systolic function. PLAN: 1. Echocardiogram. 2. Lifestyle and dietary modification. 3. Continued tobacco cessation. 4. Carotid duplex ultrasound examination in the future. 5. Improved diabetic control. Recommend endocrinology consultation. 6. Continued consultation with pulmonology regarding likely underlying COPD. 7. Follow-up visit in 6-12 months. 8. Recheck fasting lipid profile, HbA1c, chemistry panel, and CBC prior to next visit. I spent 40 minutes face to face with the patient, with over 50% spent in counseling and/or coordination of care regarding patient's multiple cardiovascular diagnoses and suggestions f or future work-up and management.. Portions of this report were transcribed using voice recognition software. Every effort wa s made to ensure accuracy; however, inadvertent computerized certified medical transcriptionist errors may be pre sent. Electronically signed by: Rafael Maxwell MD PhD FACC 01/15/2019 documented in t his encounter Plan of Treatment Not on filedocumented as of this encounter Procedures + +--------+ + + + | Procedure Name | Priori | Date/Time | Associated Diagnosis | Comments | | | ty | | | | + +--------+ + + + | EXTERNAL LAB: BUN | Routin | 01/14/2019 | | Results for this | | | e | | | procedure are in the | | | | | | results section. | + +--------+ + + + | EXTERNAL LAB: | Routin | 01/14/2019 | | Results for this | | GLUCOSE | e | | | procedure are in the | | | | | | results section. | + +--------+ + + + | EXTERNAL LAB: | Routin | 01/14/2019 | | Results for this | | CALCIUM | e | | | procedure are in the | | | | | | results section. | + +--------+ + + + | EXTERNAL LAB: CARBON | Routin | 01/14/2019 | | Results for this | | DIOXIDE | e | | | procedure are in the | | | | | | results section. | + +--------+ + + + | EXTERNAL LAB: | Routin | 01/14/2019 | | Results for this | | CHLORIDE | e | | | procedure are in the | | | | | | results section. | + +--------+ + + + | EXTERNAL LAB: | Routin | 01/14/2019 | | Results for this | | POTASSIUM | e | | | procedure are in the | | | | | | results section. | + +--------+ + + + | EXTERNAL LAB: SODIUM | Routin | 01/14/2019 | | Results for this | | | e | | | procedure are in the | | | | | | results section. | + +--------+ + + + | EXTERNAL LAB: CBC | Routin | 01/14/2019 | | Results for this | | | e | | | procedure are in the | | | | | | results section. | + +--------+ + + + | EXTERNAL LAB: | Routin | 01/14/2019 | | Results for this | | TRIGLYCERIDES | e | | | procedure are in the | | | | | | results section. | + +--------+ + + + | EXTERNAL LAB: | Routin | 01/14/2019 | | Results for this | | CHOLESTEROL, HDL | e | | | procedure are in the | | | | | | results section. | + +--------+ + + + | EXTERNAL LAB: | Routin | 01/14/2019 | | Results for this | | CHOLESTEROL, TOTAL | e | | | procedure are in the | | | | | | results section. | + +--------+ + + + | EXTERNAL LAB: | Routin | 01/14/2019 | | Results for this | | CHOLESTEROL, LDL | e | | | procedure are in the | | | | | | results section. | + +--------+ + + + | EXTERNAL LAB: EGFR | Routin | 01/14/2019 | | Results for this | | | e | | | procedure are in the | | | | | | results section. | + +--------+ + + + | EXTERNAL LAB: | Routin | 01/14/2019 | | Results for this | | CREATININE | e | | | procedure are in the | | | | | | results section. | + +--------+ + + + | LIPID PANEL | Routin | 01/14/2019 | | Results for this | | | e | | | procedure are in the | | | | | | results section. | + +--------+ + + + | CBC WITH | Routin | 01/14/2019 | | Results for this | | DIFFERENTIAL | e | | | procedure are in the | | | | | | results section. | + +--------+ + + + | HEMOGLOBIN A1C | Routin | 01/14/2019 | | Results for this | | | e | | | procedure are in the | | | | | | results section. | + +--------+ + + + | COMPREHENSIVE | Routin | 01/14/2019 | | Results for this | | METABOLIC PANEL | e | | | procedure are in the | | | | | | results section. | + +--------+ + + + documented in this encounter Results CBC with Differential (01/14/2019) + +---------+ + + + | Component | Value | Ref Range | Performed | Pathologist | | | | | At | Signature | + +---------+ + + + | MCH | 28.0 | 26.0 - 33.0 pg | | | + +---------+ + + + | MCHC | 33.0 | 30.0 - 36.0 | | | | | | g/dL | | | + +---------+ + + + | % Basophils | 1.2 (A) | 1.0 % | | | + +---------+ + + + + + | Specimen | + + | Blood | + + Comprehensive Metabolic Panel (01/14/2019) + +-------+ + + + | Component | Value | Ref Range | Performed | Pathologist | | | | | At | Signature | + +-------+ + + + | Anion Gap | 14 | mmol/L | | | + +-------+ + + + | Bun/Creatin | 22.8 | | | | | ine | | | | | + +-------+ + + + + + | Specimen | + + | Blood | + + Lipid Panel (01/14/2019) + +---------+ + + + | Component | Value | Ref Range | Performed | Pathologist | | | | | At | Signature | + +---------+ + + + | VLDL | 12 | | | | | Cholesterol | | | | | | Tim | | | | | + +---------+ + + + | Chol/HDL | 3.0 | | | | | Ratio | | | | | + +---------+ + + + | Non-HDL | 160 (A) | 130 | | | | Cholesterol | | | | | + +---------+ + + + + + | Specimen | + + | Blood | + + Hemoglobin A1C (01/14/2019) + +---------+ + + + | Component | Value | Ref Range | Performed | Pathologist | | | | | At | Signature | + +---------+ + + + | Hemoglobin | 9.2 (A) | 5.7 % | | | | A1c | | | | | + +---------+ + + + + + | Specimen | + + | Blood | + + External Lab: BUN (01/14/2019) + +-------+ + + + | Component | Value | Ref Range | Performed | Pathologist | | | | | At | Signature | + +-------+ + + + | BUN, | 23 | | | | | External | | | | | + +-------+ + + + External Lab: Glucose (01/14/2019) + +---------+ + + + | Component | Value | Ref Range | Performed | Pathologist | | | | | At | Signature | + +---------+ + + + | Glucose, | 143 (A) | 100 | | | | External | | | | | + +---------+ + + + External Lab: Calcium (01/14/2019) + +-------+ + + + | Component | Value | Ref Range | Performed | Pathologist | | | | | At | Signature | + +-------+ + + + | Calcium, | 9.8 | | | | | External | | | | | + +-------+ + + + External Lab: Carbon Dioxide (01/14/2019) + +-------+ + + + | Component | Value | Ref Range | Performed | Pathologist | | | | | At | Signature | + +-------+ + + + | Carbon | 29 | | | | | Dioxide, | | | | | | External | | | | | + +-------+ + + + External Lab: Chloride (01/14/2019) + +-------+ + + + | Component | Value | Ref Range | Performed | Pathologist | | | | | At | Signature | + +-------+ + + + | Chloride, | 100 | | | | | External | | | | | + +-------+ + + + External Lab: Potassium (01/14/2019) + +-------+ + + + | Component | Value | Ref Range | Performed | Pathologist | | | | | At | Signature | + +-------+ + + + | Potassium, | 5.0 | | | | | External | | | | | + +-------+ + + + External Lab: Sodium (01/14/2019) + +-------+ + + + | Component | Value | Ref Range | Performed | Pathologist | | | | | At | Signature | + +-------+ + + + | Sodium, | 138 | | | | | External | | | | | + +-------+ + + + External Lab: CBC (01/14/2019) + + + + + + | Component | Value | Ref Range | Performed | Pathologist | | | | | At | Signature | + + + + + + | WBC, | 6.5 | | | | | External | | | | | + + + + + + | HGB, | 11.9 (A) | 12 | | | | External | | | | | + + + + + + | HCT, | 36.5 | | | | | External | | | | | + + + + + + | PLT, | 145 | | | | | External | | | | | + + + + + + | Neutrophils | 66.7 | | | | | %, | | | | | | External | | | | | + + + + + + | Lymphocytes | 21.7 (A) | 24 | | | | %, | | | | | | External | | | | | + + + + + + | Monocytes | 6.8 | | | | | %, External | | | | | + + + + + + | Eosinophils | 3.6 | | | | | %, | | | | | | External | | | | | + + + + + + | RBC, | 4.28 | | | | | External | | | | | + + + + + + | MCV, | 85 | | | | | External | | | | | + + + + + + | RDW, | 15.4 (A) | 15 | | | | External | | | | | + + + + + + External Lab: Triglycerides (01/14/2019) + +-------+ + + + | Component | Value | Ref Range | Performed | Pathologist | | | | | At | Signature | + +-------+ + + + | Triglycerid | 59 | | | | | es, | | | | | | External | | | | | + +-------+ + + + + + | Specimen | + + | Blood | + + External Lab: Cholesterol, HDL (01/14/2019) + +-------+ + + + | Component | Value | Ref Range | Performed | Pathologist | | | | | At | Signature | + +-------+ + + + | HDL | 78.8 | mg/dl | | | | Cholesterol | | | | | | , External | | | | | + +-------+ + + + + + | Specimen | + + | Blood | + + External Lab: Cholesterol, Total (01/14/2019) + +---------+ + + + | Component | Value | Ref Range | Performed | Pathologist | | | | | At | Signature | + +---------+ + + + | Cholesterol | 239 (A) | 200 mg/dl | | | | , Total, | | | | | | External | | | | | + +---------+ + + + + + | Specimen | + + | Blood | + + External Lab: Cholesterol, LDL (01/14/2019) + +---------+ + + + | Component | Value | Ref Range | Performed | Pathologist | | | | | At | Signature | + +---------+ + + + | LDL | 148 (A) | 100 | | | | Cholesterol | | | | | | , Direct, | | | | | | External | | | | | + +---------+ + + + + + | Specimen | + + | Blood | + + External Lab: eGFR (01/14/2019) + +-------+ + + + | Component | Value | Ref Range | Performed | Pathologist | | | | | At | Signature | + +-------+ + + + | eGFR, | 54 | 60 | | | | External | | | | | + +-------+ + + + + + | Specimen | + + | Blood | + + External Lab: Creatinine (01/14/2019) + +-------+ + + + | Component | Value | Ref Range | Performed | Pathologist | | | | | At | Signature | + +-------+ + + + | Creatinine, | 1.01 | | | | | External | | | | | + +-------+ + + + + + | Specimen | + + | Blood | + + documented in this encounter Visit Diagnoses + + | Diagnosis | + + | Abnormal heart rate - Primary | + + | Stenosis of carotid artery, unspecified laterality | + + | Essential hypertension Unspecified essential hypertension | + + | Functional murmur Undiagnosed cardiac murmurs | + + | Heart valve replaced Heart valve replaced by other means | + + | Mitral valve insufficiency, unspecified etiology | + + | Mixed hyperlipidemia | + + | SOB (shortness of breath) Shortness of breath | + + documented in this encounter
--- OUTSIDE RECORDS SUMMARY | ~2019-03-02 | XMS | Encounter Summary ---
Demographics + + + | Address | [address] | | | [place] [address] | + + + | Home Phone | | + + + | Preferred Language | Unknown | + + + | Marital Status | Single | + + + | Evangelical Affiliation | 1013 | + + + | Race | Unknown | + + + | Ethnic Group | Unknown | + + + Author + + + | Author | [facility] | | | and Dwayneana | + + + | Organization | [facility] | | | and Dwayneana [...] Team Providers + +------+ + | Care Bottle Blower Name | Role | Phone | + [...] [facility] | | | | | Heart valve | Bubba | [address] | | | | | replaced | MD Yimi | [place], | | | | | Mitral valve | [address] | [place] | | | | | | St [place] | [address] | | | | | insufficienc | [place], [place] | Phone: | | | | | y, | [address] | [phone] | | | | | unspecified | Phone: | Fax: | | | | | etiology | [phone] | [phone] | | | | | Essential | Fax: | | | | | | hypertension | [phone] | | | | | | Poor | | | | | | | circulation | | | | | | | Mixed | | | | | | | hyperlipidem | | | | | | | ia SOB | | | | | | | (shortness | | | | | | | of breath) | | | | | | | Procedures | | | | | | | ECHO | | | | | | | Complete | | | +--------+--------+ + + + [...] [facility] | | | | | Heart valve | Bubba | [address] | | | | | replaced | MD Yimi | [place], | | | | | Mitral valve | [address] | [place] | | | | | | St [place] | [address] | | | | | insufficienc | [place] | Phone: | | | | | y, | [address] | [phone] | | | | | unspecified | Phone: | Fax: | | | | | etiology | [phone] | [phone] | | | | | Essential | Fax: | | | | | | hypertension | [phone] | | | | | | Poor | | | | | | | circulation | | | | | | | Mixed | | | | | | | hyperlipidem | | | | | | | ia SOB | | | | | | | (shortness | | | | | | | of breath) | | | | | | | Procedures | | | | | | | ECHO | | | | | | | Complete | | | +--------+--------+ + + + + Encounter Details +--------+ + + + + | Date | Type | Department | Care Team | Description | +--------+ + + + + | 01/15/ | Hospital | [facility] | Bubab Ornelas | Heart valve | | 2019 | Encounter | [facility] [address] | MD Yimi [address] | replaced; Mitral | | | | [address] [place] | [address] [place] | valve insufficiency, | | | | [place] [address] | [place] [address] | unspecified | | | | [phone] | [phone] | etiology; Essential | | | | | | hypertension; Poor | | | | | | circulation; Mixed | | | | | | hyperlipidemia; SOB | | | | | | (shortness of | | | | | | breath) | +--------+ + + + + Social [...] + + + +---------+ + + | albuterol | Inhale into the | | 0 | | | | (VENTOLIN HFA) 90 | lungs as needed. | | | | | | mcg/puff inhaler | | | | | | + [...] + + + +---------+ + + | carvedilol (COREG) | Take 12.5 mg by | | 0 | | | | 12.5 mg tablet | mouth 2 times daily | | | | | | | (with breakfast & | | | [...] + + +---------+ + + | insulin glargine | Inject 20 Units | | 0 | 05/30/20 | | | (TOUJEO SOLOSTAR) | under the skin | | | 19 | | | 300 units/mL | nightly. | | | | | | concentrated | | | | | | | injection (pen) | | | | | | + [...] +---------+ + + | atorvaSTATin | Take 10 mg by mouth | | 0 | 09/20/19 | | | (LIPITOR) 10 mg | Daily. | | | 19 | 9 | | tablet | | [...] + | ECHO COMPLETE | Routin | 01/15/2019 | Heart valve | Results for this | | | e | 1:58 PM | replaced Mitral | procedure are in the | | | | PDT | valve insufficiency, | results section. | | | | | unspecified | | | | | | etiology Essential | | | | | | hypertension Poor | | | | | | circulation Mixed | | | | | | hyperlipidemia SOB | | | | | | (shortness of | | | | | | breath) | | + +--------+ + + + documented in this encounter Results ECHO Complete (01/15/2019 1:58 PM PDT) + +--------+ + + + | Component | Value | Ref Range | Performed | Pathologist | | | | | At | Signature | + +--------+ + + + | Patient | 109 | | [facility] | | | Weight | | | | | | (lbs) | | | | | + +--------+ + + + | Patient | 5'5" | | [facility] | | | Height | | | | | + +--------+ + + + | LVIDd | 4.86 | cm | [facility] | | + +--------+ + + + | FS | 27 | % | [facility] | | + +--------+ + + + | LA volume | 47.75 | mL | [facility] | | + +--------+ + + + | Aortic arch | 2.39 | cm | [facility] | | + +--------+ + + + | AV mean | 7.03 | mmHg | [facility] | | | gradient | | | | | + +--------+ + + + | MV mean | 6.71 | mmHg | [facility] | | | gradient | | | | | + +--------+ + + + | IVRT | 114.19 | msec | [facility] | | + +--------+ + + + | LVOT peak | 90.35 | cm/s | [facility] | | | brian | | | | | + +--------+ + + + | LVOT peak | 20.32 | cm | [facility] | | | VTI | | | | | + +--------+ + + + | AV peak brian | 169.89 | cm/s | [facility] | | + +--------+ + + + | AV VTI | 37.59 | cm | [facility] | | + +--------+ + + + | AV peak | 11.55 | mmHg | [facility] | | | gradient | | | | | + +--------+ + + + | MV peak | 14.62 | mmHg | [facility] | | | gradient | | | | | + +--------+ + + + | LA Volume | 31 | mL/m2 | [facility] | | | Index | | | | | + +--------+ + + + | AV LVOT | 3.27 | mmHg | [facility] | | | Peak | | | | | | Gradient | | | | | + +--------+ + + + | AV LVOT | 1.93 | mmHg | [facility] | | | Mean | | | | | | Gradient | | | | | + +--------+ + + + | LV | 8.03 | cm | [facility] | | | Diastolic | | | | | | Length 4C | | | | | + +--------+ + + + | LV | 50 | % | [facility] | | | Cordero's | | | | | | Biplane EF | | | | | + +--------+ + + + | LV ED | 88.55 | ml | [facility] | | | Volume | | | | | | (Cordero's) | | | | | + +--------+ + + + | LV ED | 58 | ml/m2 | [facility] | | | Volume | | | | | | Index | | | | | + +--------+ + + + | LV ES | 47.65 | ml | [facility] | | | Volume | | | | | + +--------+ + + + | LVOT Mean | 65.98 | cm/s | [facility] | | | Velocity | | | | | + +--------+ + + + | MV E' | 3 | cm/s | [facility] | | | Septal | | | | | | Velocity | | | | | + +--------+ + + + | MV | 411.12 | cm/s2 | [facility] | | | Deceleratio | | | | | | n Sutton | | | | | + +--------+ + + + | MV | 344.99 | msec | [facility] | | | Deceleratio | | | | | | n Time | | | | | + +--------+ + + + | MV E/A | 1.18 | | [facility] | | | Ratio | | | | | + +--------+ + + + | MV Mean | 121.81 | cm/s | [facility] | | | Velocity | | | | | + +--------+ + + + | MV Peak | 119.78 | cm/s | [facility] | | | A-Wave | | | | | + +--------+ + + + | MV Peak | 141.83 | cm/s | [facility] | | | E-Wave | | | | | + +--------+ + + + | AV Mean | 126.32 | cm/s | [facility] | | | Velocity | | | | | + +--------+ + + + | LA/Aorta | 1.16 | | [facility] | | | Ratio | | | | | + +--------+ + + + | LA Area | 17.23 | cm2 | [facility] | | + +--------+ + + + | MV E/E | 47.28 | | [facility] | | | SEPTAL | | | | | + +--------+ + + + | LA Major | 0.3759 | cm | [facility] | | + +--------+ + + + | LV ES | 31 | ml/m2 | [facility] | | | Volume | | | | | | Index | | | | | + +--------+ + + + | Aortic Root | 3.35 | cm | [facility] | | | Diameter | | | | | + +--------+ + + + | IVS | 0.91 | cm | [facility] | | | Diastolic | | | | | | Thickness | | | | | | MM | | | | | + +--------+ + + + | LVPW | 0.93 | cm | [facility] | | | Diastolic | | | | | | Thickness | | | | | | MM | | | | | + +--------+ + + + | IVS | 1.32 | cm | [facility] | | | Systolic | | | | | | Thickness | | | | | | MM | | | | | + +--------+ + + + | LV Systolic | 3.57 | cm | [facility] | | | Diameter | | | | | | MM | | | | | + +--------+ + + + | LVPW | 1.17 | cm | [facility] | | | Systolic | | | | | | Thickness | | | | | | MM | | | | | + +--------+ + + + | AV Cusp | 1.72 | cm | [facility] | | | Seperation | | | | | | MM | | | | | + +--------+ + + + | LA Systolic | 3.9 | cm | [facility] | | | Diameter | | | | | | MM | | | | | + +--------+ + + + | TAPSE | 1.29 | cm | [facility] | | + +--------+ + + + | LVEF-TTE | 50 | | [facility] | | | TRANSTHORAC | | | | | | IC ECHO | | | | | + +--------+ + + + + + | Specimen | + + | | + + + +---- + | Narrative | Per formed At | + +---- + | Transthoracic | [facility] | | Echocardiography Report (TTE) Demographics Patient Name PULSE | | | ETELVINA WIGGINS Room Number Patient Number [id number] Date of | | | Study 01/15/2019 Visit Number [id number] | | | Referring Physician YIMI ORNELAS MD Accession | | | [id number] Ophthalmic Surgical Assistant CONOR VILLASEÑOR Number | | | Date of 1950 Interpreting | | | YIMI ORNELAS MD | | | Physician 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 Procedure DateDate: 01/15/2019 | | | Start: 01:08 PM Study Location: Echo LabTechnical Quality: Adequate | | | visualization Patient Status: Routine Height: 65 inches Weight: 109 | | | pounds BSA: 1.53 m^2 BMI: 18.14 kg/m^2 Rhythm: Normal Sinus Rhythm HR: | | | 74 bpm Conclusions Summary Left ventricle is normal in size with | | | systolic function at the lower limit of normal. LVEF is estimated in | | | the range of 50-55%. Mitral valve is echodense consistent with | | | previous repair versus replacement. Mean pressure gradient is measured | | | at 9 mmHg. Left atrium is mildly enlarged. Signature | | | | | | Electronically signed by YIMI ORNELAS MD (Interpreting physician) on | | | 01/16/2019 at 05:02 PM | | | | | | Structures Left Atrium LA Dimension: 3.9 cm | | | LA Area: 17.23 cm^2 LA/Aorta: 1.16 LA Volume/Index: 47.75 | | | ml /31m^2 Left Atrium Findings Left atrium is mildly enlarged. Left | | | Ventricle Diastolic Dimension: 4.86 cm Systolic | | | Dimension: 3.57 cm Septum Diastolic: 0.91 cm Septum | | | Systolic: 1.32 cm PW Diastolic: 0.93 cm PW | | | Systolic: 1.17 cm EF Estimated: 50% FS: | | | 26.5 % LV EDV/LV EDV Index: 88.55 ml/58 m^2 LV ESV/LV ESV Index: 47.65 | | | ml/31 m^2 EF Calculated: 50% LV Length: | | | 8.03 cm IVRT: | | | 114.2 msec Left Ventricle Findings Left ventricle is normal in size | | | with systolic function at the lower limit of normal. LVEF is estimated | | | in the range of 50-55%. Right Atrium Right Atrium Findings Normal | | | right atrial size. Right Ventricle Right Ventricle Findings Normal | | | right ventricular size. Right ventricle global systolic function is | | | normal. TAPSE = 1.5 cm. MiscellaneousAorta Aortic Root: 3.35 cm | | | Aortic Arch: 2.39 cm Miscellaneous FindingsAortic | | | root is normal. IVC is normal. Pericardium Pericardial Effusion | | | Findings No evidence of pericardial effusion. Pleura Pleural | | | Effusion Findings No evidence of pleural effusion. Valves Mitral | | | Valve Peak E-Wave: 141.83 cm/s Peak A-Wave: | | | 119.78 cm/s Mean Velocity: 121.81 cm/s E/A Ratio: | | | 1.18 Mean Gradient: 6.71 mmHg Peak Gradient: 14.62 | | | mmHg | | | Deceleration Time: 345 msec Tissue Doppler E' Septal Velocity: 3 | | | cm/s Mitral Valve Findings Mitral valve is echodense consistent with | | | previous repair versus replacement. Mean pressure gradient is measured | | | at 9 mmHg. Aortic Valve Peak Velocity: 169.89 cm/s | | | Mean Velocity: 126.32 cm/s Peak Gradient: 11.55 mmHg | | | Mean Gradient: 7.03 mmHg AV VTI: 37.59 cm Cusp Separation: 1.72 cm | | | Aortic Valve Findings Aortic valve is a mildly sclerotic trileaflet | | | valve without significant stenosis or regurgitation. Tricuspid Valve | | | Tricuspid Valve Findings Structurally normal tricuspid valve with | | | trace insufficiency. Pulmonic Valve Pulmonic Valve Findings Normal | | | pulmonic valve structure and function. Normal pulmonary valve and RVOT | | | flow by color and Doppler flow imaging. LVOT Peak Velocity: 90.35 | | | cm/s Mean Velocity: 65.98 cm/s Peak Gradient: 3.27 | | | mmHg Mean Gradient: 1.93 mmHg | | | LVOT VTI: 20.32 cm | | | Left Atrium Findings | | | Left atrium is mildly enlarged. | | | | | | Left Ventricle | | | | | | Diastolic Dimension: 4.86 cm Systolic Dimension: 3.57 cm | | | Septum Diastolic: 0.91 cm Septum Systolic: 1.32 cm | | | PW Diastolic: 0.93 cm PW Systolic: 1.17 cm | | | EF Estimated: 50% FS: 26.5 % | | | LV EDV/LV EDV Index: 88.55 ml/58 m^2 LV ESV/LV ESV Index: 47.65 ml/31 m^2 | | | EF Calculated: 50% LV Length: 8.03 cm | | | | | | IVRT: 114.2 msec | | | | | | Left Ventricle Findings | | | Left ventricle is normal in size with systolic function at the lower | | | limit of normal. LVEF is estimated in the range of 50-55%. | | | | | | Right Atrium | | | | | | Right Atrium Findings | | | Normal right atrial size. | | | | | | Right Ventricle | | | | | | Right Ventricle Findings | | | Normal right ventricular size. | | | Right ventricle global systolic function is normal. | | | TAPSE = 1.5 cm. | | | | | |Miscellaneous | | |Aorta | | | | | | Aortic Root: 3.35 cm Aortic Arch: 2.39 cm | | | | | |Miscellaneous Findings | | |Aortic root is normal. IVC is normal. | | | | | | Pericardium | | | | | | Pericardial Effusion Findings | | | No evidence of pericardial effusion. | | | | | | Pleura | | | | | | Pleural Effusion Findings | | | No evidence of pleural effusion. | | | | | |Valves | | | | | | Mitral Valve | | | | | | Peak E-Wave: 141.83 cm/s Peak A-Wave: 119.78 cm/s | | | Mean Velocity: 121.81 cm/s E/A Ratio: 1.18 | | | Mean Gradient: 6.71 mmHg Peak Gradient: 14.62 mmHg | | | Deceleration Time: 345 msec | | | | | | Tissue Doppler | | | | | | E' Septal Velocity: 3 cm/s | | | | | | Mitral Valve Findings | | | Mitral valve is echodense consistent with previous repair versus | | | replacement. Mean pressure gradient is measured at 9 mmHg. | | | | | | Aortic Valve | | | | | | Peak Velocity: 169.89 cm/s Mean Velocity: 126.32 cm/s | | | Peak Gradient: 11.55 mmHg Mean Gradient: 7.03 mmHg | | | AV VTI: 37.59 cm | | | | | | Cusp Separation: 1.72 cm | | | | | | Aortic Valve Findings | | | Aortic valve is a mildly sclerotic trileaflet valve without significant | | | stenosis or regurgitation. | | | | | | Tricuspid Valve | | | | | | Tricuspid Valve Findings | | | Structurally normal tricuspid valve with trace insufficiency. | | | | | | Pulmonic Valve | | | | | | Pulmonic Valve Findings | | | Normal pulmonic valve structure and function. Normal pulmonary valve and | | | RVOT flow by color and Doppler flow imaging. | | | | | | LVOT | | | | | | Peak Velocity: 90.35 cm/s Mean Velocity: 65.98 cm/s | | | Peak Gradient: 3.27 mmHg Mean Gradient: 1.93 mmHg | | | LVOT VTI: 20.32 cm | | | | | + +---- + + + | Procedure Note | + + | Jesu Lopez Results In - 01/16/2019 5:02 PM PDT Transthoracic Echocardiography Report | | (TTE) Demographics Patient Name AUSTIN WIGGINS Room Number Patient Number | | [id number] Date of Study 01/15/2019 Visit Number [id number] | | Referring Physician YIMI ORNELAS MD Ophthalmic Surgical Assistant | | CONOR VILLASEÑOR Number Date of 1950 Interpreting | | YIMI ORNELAS MD Physician Age 68 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 LVEF is estimated in the range of | | 50-55%. Mitral valve is echodense consistent with previous repair versus replacement. | | Mean pressure gradient is measured at 9 mmHg. Left atrium is mildly enlarged. Signature | | | | Structures Left Atrium | | LA Dimension: 3.9 cm LA Area: 17.23 cm^2 LA/Aorta: 1.16 LA | | Volume/Index: 47.75 ml /31m^2 Left Atrium Findings Left atrium is mildly enlarged. Left | | Ventricle Diastolic Dimension: 4.86 cm Systolic Dimension: 3.57 cm Septum | | Diastolic: 0.91 cm Septum Systolic: 1.32 cm PW Diastolic: 0.93 cm | | PW Systolic: 1.17 cm EF Estimated: 50% FS: 26.5 % LV EDV/LV EDV | | Index: 88.55 ml/58 m^2 LV ESV/LV ESV Index: 47.65 ml/31 m^2 EF Calculated: 50% | | LV Length: 8.03 cm IVRT: 114.2 msec Left | | Ventricle Findings Left ventricle is normal in size with systolic function at the lower | | limit of normal. LVEF is estimated in the range of 50-55%. Right Atrium Right Atrium | | Findings Normal right atrial size. Right Ventricle Right Ventricle Findings Normal right | | ventricular size. Right ventricle global systolic function is normal. TAPSE = 1.5 | | cm.MiscellaneousAorta Aortic Root: 3.35 cm Aortic Arch: 2.39 | | cmMiscellaneous FindingsAortic root is normal. IVC is normal. Pericardium Pericardial | | Effusion Findings No evidence of pericardial effusion. Pleura Pleural Effusion Findings | | No evidence of pleural effusion.Valves Mitral Valve Peak E-Wave: 141.83 cm/s | | Peak A-Wave: 119.78 cm/s Mean Velocity: 121.81 cm/s E/A Ratio: 1.18 Mean | | Gradient: 6.71 mmHg Peak Gradient: 14.62 mmHg | | Deceleration Time: 345 msec Tissue Doppler E' Septal Velocity: 3 cm/s Mitral | | Valve Findings Mitral valve is echodense consistent with previous repair versus | | replacement. Mean pressure gradient is measured at 9 mmHg. Aortic Valve Peak Velocity: | | 169.89 cm/s Mean Velocity: 126.32 cm/s Peak Gradient: 11.55 mmHg | | Mean Gradient: 7.03 mmHg AV VTI: 37.59 cm Cusp Separation: 1.72 cm Aortic Valve Findings | | Aortic valve is a mildly sclerotic trileaflet valve without significant stenosis or | | regurgitation. Tricuspid Valve Tricuspid Valve Findings Structurally normal tricuspid | | valve with trace insufficiency. Pulmonic Valve Pulmonic Valve Findings Normal pulmonic | | valve structure and function. Normal pulmonary valve and RVOT flow by color and Doppler | | flow imaging. LVOT Peak Velocity: 90.35 cm/s Mean Velocity: 65.98 cm/s Peak | | Gradient: 3.27 mmHg Mean Gradient: 1.93 mmHg | | LVOT VTI: 20.32 cm | | | | Signature | | | | | | | | | | | |Structures | | | | Left Atrium | | | | LA Dimension: 3.9 cm LA Area: 17.23 cm^2 | | LA/Aorta: 1.16 | | LA Volume/Index: 47.75 ml /31m^2 | | | | Left Atrium Findings | | Left atrium is mildly enlarged. | | | | Left Ventricle | | | | Diastolic Dimension: 4.86 cm Systolic Dimension: 3.57 cm | | Septum Diastolic: 0.91 cm Septum Systolic: 1.32 cm | | PW Diastolic: 0.93 cm PW Systolic: 1.17 cm | | EF Estimated: 50% FS: 26.5 % | | LV EDV/LV EDV Index: 88.55 ml/58 m^2 LV ESV/LV ESV Index: 47.65 ml/31 m^2 | | EF Calculated: 50% LV Length: 8.03 cm | | | | IVRT: 114.2 msec | | | | Left Ventricle Findings | | Left ventricle is normal in size with systolic function at the lower | | limit of normal. LVEF is estimated in the range of 50-55%. | | | | Right Atrium | | | | Right Atrium Findings | | Normal right atrial size. | | | | Right Ventricle | | | | Right Ventricle Findings | | Normal right ventricular size. | | Right ventricle global systolic function is normal. | | TAPSE = 1.5 cm. | | | |Miscellaneous | |Aorta | | | | Aortic Root: 3.35 cm Aortic Arch: 2.39 cm | | | |Miscellaneous Findings | |Aortic root is normal. IVC is normal. | | | | Pericardium | | | | Pericardial Effusion Findings | | No evidence of pericardial effusion. | | | | Pleura | | | | Pleural Effusion Findings | | No evidence of pleural effusion. | | | |Valves | | | | Mitral Valve | | | | Peak E-Wave: 141.83 cm/s Peak A-Wave: 119.78 cm/s | | Mean Velocity: 121.81 cm/s E/A Ratio: 1.18 | | Mean Gradient: 6.71 mmHg Peak Gradient: 14.62 mmHg | | Deceleration Time: 345 msec | | | | Tissue Doppler | | | | E' Septal Velocity: 3 cm/s | | | | Mitral Valve Findings | | Mitral valve is echodense consistent with previous repair versus | | replacement. Mean pressure gradient is measured at 9 mmHg. | | | | Aortic Valve | | | | Peak Velocity: 169.89 cm/s Mean Velocity: 126.32 cm/s | | Peak Gradient: 11.55 mmHg Mean Gradient: 7.03 mmHg | | AV VTI: 37.59 cm | | | | Cusp Separation: 1.72 cm | | | | Aortic Valve Findings | | Aortic valve is a mildly sclerotic trileaflet valve without significant | | stenosis or regurgitation. | | | | Tricuspid Valve | | | | Tricuspid Valve Findings | | Structurally normal tricuspid valve with trace insufficiency. | | | | Pulmonic Valve | | | | Pulmonic Valve Findings | | Normal pulmonic valve structure and function. Normal pulmonary valve and | | RVOT flow by color and Doppler flow imaging. | | | | LVOT | | | | Peak Velocity: 90.35 cm/s Mean Velocity: 65.98 cm/s | | Peak Gradient: 3.27 mmHg Mean Gradient: 1.93 mmHg | | LVOT VTI: 20.32 cm | + + + +---------+ + + [...] insufficiency, unspecified etiology | + + | Essential hypertension Unspecified essential hypertension | + + | Poor circulation Unspecified circulatory system disorder | + + | Mixed hyperlipidemia | + + | SOB (shortness of breath) Shortness of breath | + + documented in this encounter
--- OUTSIDE RECORDS SUMMARY | ~2019-03-02 | XMS | Encounter Summary ---
Demographics + + + | Address | [address] | | | [place] [address] | + + + | Home Phone | | + + + | Preferred Language | Unknown | + + + | Marital Status | Single | + + + | Restoration Affiliation | 1013 | + + + | Race | Unknown | + + + | Ethnic Group | Unknown | + + + Author + + + | Author | [facility] | | | and Dwayneana | + + + | Organization | [facility] | | | and Dwayneana | [...] Team Providers + +------+ + | Care Branding Machine Tender Name | Role | Phone | + +------+ + PCP | Unavailable | + +------+ + Encounter Details +--------+ + + + + | Date | Type | Department | Care Team | Description | +--------+ + + + + | 06/14/ | Orders Only | [facility] | Nestor Nice | Occlusion and | | 2012 | | SURGERY [address] | MD Alma, FACS [address] | stenosis of carotid | | | | [place], [place] | [address] [place] | artery without | | | | [address] | [place] [address] | mention of cerebral | | | | [phone] | [phone] | infarction (Primary | | | | [...] documented as of this encounter Progress Notes Ita Hall RN - 06/14/2012 2:32 PM PSTDr. reviewed carotid duplex scan form . He states that if patient is not having any symptoms we should repeat carotid duple x scan in 04/04 and she should continue 1 aspirin a day. Attempted to call patient, unable t o reach, left a message documented in this en counter Plan of Treatment + +---------+--------+ + + | Name | Type | Priori | Associated Diagnoses | Order Schedule | | | | ty | | | + +---------+--------+ + + | VAS Carotid Duplex | Imaging | Routin | Occlusion and | Expected: | | Bilateral | | e | stenosis of carotid | 03/23/2013, Expires: | | | | | artery without | 06/14/2013 | | | | | mention of [...]
--- OUTSIDE RECORDS SUMMARY | ~2019-03-02 | XMS | Encounter Summary ---
Demographics + + + | Address | [address] | | | [place] [address] | + + + | Home Phone | | + + + | Preferred Language | Unknown | + + + | Marital Status | Single | + + + | Uatsdin Affiliation | 1013 | + + + | Race | Unknown | + + + | Ethnic Group | Unknown | + + + Author + + + | Author | [facility] | | | and Dwayneana | + + + | Organization | [facility] | | | and Dwayneana [...] Team Providers + +------+ + | Care Restaurant Cook Name | Role | Phone | + +------+ + | Margie Gonzalez | PCP | | + +------+ + Reason for Visit +--------+ + | Reason | Comments | +--------+ + | Other | sooner follow up needed | +--------+ + Encounter Details +--------+ + + + + | Date | Type | Department | Care Team | Description | +--------+ + + + + | 12/26/ | Telephone | [facility] | Bubba Maxwell | Other (sooner follow | | 2017 | | [facility] [address] | MD Yimi [address] | up needed) | | | | [place], | [address] [place] | | | | | [place] [address] | [place] [address] | | | | | [phone] | [phone] | | | | | | | [...]
--- OUTSIDE RECORDS SUMMARY | ~2019-03-02 | XMS | Encounter Summary ---
Demographics + + + | Address | [address] | | | [place] [address] | + + + | Home Phone [...] + + + | Author | [facility] | + + + | Organization | [facility] | + + + | Address | Unknown | + + + | Phone | Unavailable | + + + Support + + +---------+ + | Name | Relationship | Address | Phone | + + +---------+ + | Karen Unknown | ECON | Unknown | | + + +---------+ + Care Team Providers + +------+ + | Care Early Childhood Services Coordinator Name | Role | Phone | + +------+ + | Margie Gonzlaez PA-C | PCP | | + +------+ + Reason for Visit + + + | Reason | Comments | + + + | Lab Results | | + + + Encounter Details +--------+ + + + + | Date | Type | Department | Care Team | Description | +--------+ + + + + | 09/24/ | Documentati | General Internal | Rosa Orozco, | Lab Results | | 2019 | on | Medicine at Offsite | JACK [address] | | | | | [address] | [address] | | | | | [place]az[place] Infante Mailcode: | [place], [place] | | | | | [id number] [place], [place] | [address] | | | | | [address] | [phone] | | | | | [phone] | | | +--------+ + + + [...]
--- OUTSIDE RECORDS SUMMARY | ~2019-03-02 | XMS | Encounter Summary ---
Demographics + + + | Address | [address] | | | [place] [address] | + + + | Home Phone | | + + + | Preferred Language | Unknown | + + + | Marital Status | Single | + + + | Scientology Affiliation | 1013 | + + + | Race | Unknown | + + + | Ethnic Group | Unknown | + + + Author + + + | Author | [facility] | | | and Dwayneana | + + + | Organization | [facility] | | | and [...] Team Providers + +------+ + | Care Java Mobile Developer Name | Role | Phone | + +------+ + PCP | Unavailable | + +------+ + Reason for Visit +--------+ + | Reason | Comments | +--------+ + | Other | Imaging | +--------+ + Encounter Details +--------+ + + + + | Date | Type | Department | Care Team | Description | +--------+ + + + + | 03/25/ | Telephone | [facility] | YvroseNestor | Other (Imaging) | | 2011 | | SURGERY [address] | MD [place], FACS [address] | | | | | [place], [place] | [address] [facility] | | | | | [address] | [place] [address] | | | | | [phone] | [phone] | | | | | | | [...]
--- OUTSIDE RECORDS SUMMARY | ~2019-03-02 | XMS | Encounter Summary ---
Demographics + + + | Address | [address] | | | [place] [address] | + + + | Home Phone | | + + + | Preferred Language | Unknown | + + + | Marital Status | Single | + + + | Denominational Affiliation | 1013 | + + + | Race | Unknown | + + + | Ethnic Group | Unknown | + + + Author + + + | Author | [facility] | | | and Dwayneana | + + + | Organization | [facility] | | | and [...] Team Providers + +------+ + | Care Slasher Hand Name | Role | Phone | + [...] + + | 12/26/ | Telephone | [facility] | Bubba Maxwell | Other (sooner follow | | 2017 | | [address] | MD Yimi [address] | up needed) | | | | [place], | [place] [address] [place] | | | | | [place] [address] | [place] [address] | | | | | [phone] | [phone] | | | | | | | [...]
--- OUTSIDE RECORDS SUMMARY | ~2019-03-02 | XMS | Encounter Summary ---
Demographics + + + | Address | [address] | | | [place] [address] | + + + | Home Phone | | + + + | Preferred Language | Unknown | + + + | Marital Status | Single | + + + | Rastafarian Affiliation | 1013 | + + + | Race | Unknown | + + + | Ethnic Group | Unknown | + + + Author + + + | Author | [facility] | | | and [place]wayneana | + + + | Organization | [facility] | | | [...] Team Providers + +------+ + | Care Bench Carpenter Name | Role | Phone | + [...] PHYSIATRY [address] | MD [address] | | | | | [place], | [place], [place] | | | | | [place] [address] | [address] | | | | | [phone] | | | +--------+ + + + [...]
--- OUTSIDE RECORDS SUMMARY | ~2019-03-02 | XMS | Encounter Summary ---
Demographics + + + | Address | [address] | | | [place] [address] | + + + | Home Phone | | + + + | Preferred Language | Unknown | + + + | Marital Status | Single | + + + | Hoahaoism Affiliation | 1013 | + + + | Race | Unknown | + + + | Ethnic Group | Unknown | + + + Author + + + | Author | [facility] | | | and [place]wayneana | + + + | Organization | [facility] | | | and Dwayneana [...] Team Providers + +------+ + | Care Dictaphone Typist Name | Role | Phone | + [...] | 01/06/ | Telephone | [facility] [place] | Gael Adam, | Other (MRI orders) | | 2013 | | PHYSIATRY [address] | MD [address] | | | | | [place], | [place], [place] | | | | | [place] [address] | [address] | | | | | [phone] | | | +--------+ + + + [...]
--- OUTSIDE RECORDS SUMMARY | ~2019-03-02 | XMS | Encounter Summary ---
Demographics + + + | Address | [address] | | | [place] [address] | + + + | Home Phone | | + + + | Preferred Language | Unknown | + + + | Marital Status | Single | + + + | Episcopalian Affiliation | 1013 | + + + | Race | Unknown | + + + | Ethnic Group | Unknown | + + + Author + + + | Author | [facility] | | | and Dwayneana | + + + | Organization | [facility] | | | and [...] Team Providers + +------+ + | Care Ball Ender Name | Role | Phone | + [...] atherosclero | MD Yimi | [address] | | | | | sis of | [address] | [place], | | | | | unspecified | St [place] | [place] | | | | | type of | [place], [place] | [address] | | | | | vessel, | [address] | Phone: | | | | | [place] | Phone: | [phone] | | | | | graft | [phone] | Fax: | | | | | Preoperative | Fax: | [phone] | | | | | | [phone] | | | | | | examination, [...] | | | | | | STUDIES RI | | | | | | | CV STRS TST | | | | | | | XERS&/OR RX | | | | | | | CONT ECG W/O | | | | | | | I&R RI | | | | | | [...] atherosclero | MD Yimi | [address] | | | | | sis of | [address] | [place], | | | | | unspecified | St [place] | [place] | | | | | type of | [place], [place] | [address] | | | | | vessel, | [address] | Phone: | | | | | [place] | Phone: | [phone] | | | | | graft | [phone] | Fax: | | | | | Preoperative | Fax: | [phone] | | | | | | [phone] | | | | | | examination, [...] | | | | | | STUDIES RI | | | | | | | CV STRS TST | | | | | | | XERS&/OR RX | | | | | | | CONT ECG W/O | | | | | | | I&R RI | | | | | | [...] + + | 07/15/ | Hospital | [facility] | Bubba Maxwell | Pre-op exam; CAD | | 2014 | Encounter | [facility] | MD Yimi [address] | (coronary artery | | | | MEDICINE [address] | [address] [place] | disease) | | | | [place], | [place] [address] | | | | | [place] [address] | [phone] | | | | | [phone] | | | +--------+ + + + [...] | Signed by: Rafael Maxwell MD PhD [facility] 07/15/2014, 12:40 | | + + + + + + | Narrative | Performed At | + + + | NUCLEAR MEDICINE STRESS TEST REPORT | [facility] | | Patient Name: Etelvina Benitez Study Date: 07/15/2014 Primary | [facility] | | Care Provider: Matt Kinney : | [facility] | | 1950 Age: 63 y.o. [...] + + | [address] | [address] | [place] | [phone] | | [facility] | | [address] | | | - IMAGING | | | | + + + + + documented in this encounter Visit Diagnoses + + | Diagnosis | + + | Pre-op exam Preoperative examination, unspecified | + + | CAD (coronary artery disease) Coronary atherosclerosis of unspecified type of vessel, | | [place] graft | + + documented in this encounter"
--- OUTSIDE RECORDS SUMMARY | ~2019-03-02 | XMS | Encounter Summary ---
Demographics + + + | Address | [address] | | | [place] [address] | + + + | Home Phone | | + + + | Preferred Language | Unknown | + + + | Marital Status | Single | + + + | Pentecostal Affiliation | 1013 | + + + | Race | Unknown | + + + | Ethnic Group | Unknown | + + + Author + + + | Author | [facility] | | | and [place]wayneana | + + + | Organization | [facility] [...] Team Providers + +------+ + | Care Water Taxi Driver Name | Role | Phone | + +------+ + | Margie Gonzalez | PCP | | + +------+ + Encounter Details +--------+ + + + + | Date | Type | Department | Care Team | Description | +--------+ + + + + | 11/14/ | Hospital | [facility] | Conversion | Pain | | 2018 | Encounter | CONVERSION [address]P [address] | Transaction, | | | | | [address] | Provider Unknown | | | | | [place], [place] | [phone] | | | | | [address] | | | | | | [phone] | | | +--------+ + + + [...] 0.25 mg by | | 0 | 05/16/20 | | | 0.25 mg tablet | [...] + +--------+ + + + | CV CARDIAC PROCEDURE | Routin | 11/13/2017 | | Results for this | | | e | 3:23 AM | | procedure are in the | | | | PDT | | results section. | + +--------+ + + + documented in this encounter Results CV CARDIAC PROCEDURE (11/13/2017 3:23 AM PDT) + + | Specimen | + + | | + + + + + | Narrative | Performed At | + + + | This is a non-reportable procedure without a radiologist report and | | | is used for image storage only | | + + + + + | Procedure Note | + + | Jesu Lopez - 12/11/2018 3:43 PM PDT This is a non-reportable procedure | | without a radiologist report and isused for image storage only | + + documented in this encounter Visit Diagnoses + + | Diagnosis | + + | Pain Generalized pain | + + documented in this encounter"
--- OUTSIDE RECORDS SUMMARY | ~2019-03-02 | XMS | Encounter Summary ---
Demographics + + + | Address | [address] | | | [place] [address] | + + + | Home Phone | | + + + | Preferred Language | Unknown | + + + | Marital Status | Single | + + + | Voodoo Affiliation | 1013 | + + + | Race | Unknown | + + + | Ethnic Group | Unknown | + + + Author + + + | Author | [facility] | | | and Dwayneana | + + + | Organization | [facility] | | | and [...] Team Providers + +------+ + | Care Permit Agent Name | Role | Phone | + +------+ + | Matt Kinney MD | PCP | | + +------+ + Encounter Details +--------+ + + + + | Date | Type | Department | Care Team | Description | +--------+ + + + + | 03/03/ | Abstract | [facility] | Bubba Maxwell | | | 2014 | | [address] | MD Yimi [address] | | | | | [place], | [place] | | | | | [place] [address] | [place] [address] | | | | | [phone] | [phone] | | | | | | | [...] | EXTERNAL LAB: NATHANIEL | Routin | 06/11/2014 | | Results for this | | | e | | | procedure are in the | | | | | | results section. | + +--------+ + + + | EXTERNAL LAB: | Routin | 06/11/2014 | | Results for this | | GLUCOSE | e | | | procedure are in the | | | | | | results section. | + +--------+ + + + | EXTERNAL LAB: ALT | Routin | 06/11/2014 | | Results for this | | | e | | | procedure are in the | | | | | | results section. | + +--------+ + + + | EXTERNAL LAB: AST | Routin | 06/11/2014 | | Results for this | | | e | | | procedure are in the | | | | | | results section. | + +--------+ + + + | EXTERNAL LAB: | Routin | 06/11/2014 | | Results for this | | POTASSIUM | e | | | procedure are in the | | | | | | results section. | + +--------+ + + + | EXTERNAL LAB: SODIUM | Routin | 06/11/2014 | | Results for this | | | e | | | procedure are in the | | | | | | results section. | + +--------+ + + + | EXTERNAL LAB: CBC | Routin | 06/11/2014 | | Results for this | | | e | | | procedure are in the | | | | | | results section. | + +--------+ + + + | EXTERNAL LAB: TSH | Routin | 06/11/2014 | | Results for this | | | e | | | procedure are in the | | | | | | results section. | + +--------+ + + + | EXTERNAL LAB: | Routin | 06/11/2014 | | Results for this | | TRIGLYCERIDES | e | | | procedure are in the | | | | | | results section. | + +--------+ + + + | EXTERNAL LAB: | Routin | 06/11/2014 | | Results for this | | CHOLESTEROL, HDL | e | | | procedure are in the | | | | | | results section. | + +--------+ + + + | EXTERNAL LAB: | Routin | 06/11/2014 | | Results for this | | CHOLESTEROL, TOTAL | e | | | procedure are in the | | | | | | results section. | + +--------+ + + + | EXTERNAL LAB: | Routin | 06/11/2014 | | Results for this | | CHOLESTEROL, LDL | e | | | procedure are in the | | DIRECT | | | | results section. | + +--------+ + + + | EXTERNAL LAB: EGFR | Routin | 06/11/2014 | | Results for this | | | e | | | procedure are in the | | | | | | results section. | + +--------+ + + + | EXTERNAL LAB: | Routin | 06/11/2014 | | Results for this | | CREATININE | e | | | procedure are in the | | | | | | results section. | + +--------+ + + + | HEMOGLOBIN A1C | Routin | 06/11/2014 | | Results for this | | | e | | | procedure are in the | | | | | | results section. | + +--------+ + + + documented in this encounter Results Hemoglobin A1C (06/11/2014) + +-------+ + + + | Component | Value | Ref Range | Performed | Pathologist | | | | | At | Signature | + +-------+ + + + | Hemoglobin | 11.2 | % | | | | A1c | | | | | + +-------+ + + + + + | Specimen | + + | Blood specimen | | (specimen) | + + + + | Resulting Agency Comment | + + | [facility] [place] | + + External Lab: NATHANIEL (06/11/2014) + +-------+ + + + | Component | Value | Ref Range | Performed | Pathologist | | | | | At | Signature | + +-------+ + + + | BUN, | 15 | | | | | External | | | | | + +-------+ + + + + + | Resulting Agency Comment | + + | [place] | + + External Lab: Glucose (06/11/2014) + +-------+ + + + | Component | Value | Ref Range | Performed | Pathologist | | | | | At | Signature | + +-------+ + + + | Glucose, | 230 | | | | | External | | | | | + +-------+ + + + + + | Resulting Agency Comment | + + | [place] | + + External Lab: ALT (06/11/2014) + +-------+ + + + | Component | Value | Ref Range | Performed | Pathologist | | | | | At | Signature | + +-------+ + + + | ALT, | 18 | | | | | External | | | | | + +-------+ + + + + + | Resulting Agency Comment | + + | [facility], [place] | + + External Lab: IRENE (06/11/2014) + +-------+ + + + | Component | Value | Ref Range | Performed | Pathologist | | | | | At | Signature | + +-------+ + + + | AST, | 17 | | | | | External | | | | | + +-------+ + + + + + | Resulting Agency Comment | + + | [place] | + + External Lab: Potassium (06/11/2014) + +-------+ + + + | Component | Value | Ref Range | Performed | Pathologist | | | | | At | Signature | + +-------+ + + + | Potassium, | 4.0 | | | | | External | | | | | + +-------+ + + + + + | Resulting Agency Comment | + + | [facility] [place] | + + External Lab: Sodium (06/11/2014) + +-------+ + + + | Component | Value | Ref Range | Performed | Pathologist | | | | | At | Signature | + +-------+ + + + | Sodium, | 141 | | | | | External | | | | | + +-------+ + + + + + | Resulting Agency Comment | + + | [facility], [place] | + + External Lab: CBC (06/11/2014) + +-------+ + + + | Component | Value | Ref Range | Performed | Pathologist | | | | | At | Signature | + +-------+ + + + | WBC, | 8.6 | | | | | External | | | | | + +-------+ + + + | HGB, | 15.7 | | | | | External | | | | | + +-------+ + + + | HCT, | 46.4 | | | | | External | | | | | + +-------+ + + + | PLT, | 227 | | | | | External | | | | | + +-------+ + + + | RBC, | 5.26 | | | | | External | | | | | + +-------+ + + + | MCV, | 88 | | | | | External | | | | | + +-------+ + + + | RDW, | 14 | | | | | External | | | | | + +-------+ + + + + + | Resulting Agency Comment | + + | [facility], [place] | + + External Lab: TSH (06/11/2014) + +-------+ + + + | Component | Value | Ref Range | Performed | Pathologist | | | | | At | Signature | + +-------+ + + + | TSH, | 2.00 | | | | | External | | | | | + +-------+ + + + + + | Specimen | + + | Blood specimen | | (specimen) | + + + + | Resulting Agency Comment | + + | [facility], [place] | + + External Lab: Triglycerides (06/11/2014) + +-------+ + + + | Component | Value | Ref Range | Performed | Pathologist | | | | | At | Signature | + +-------+ + + + | Triglycerid | 177 | | | | | es, | | | | | | External | | | | | + +-------+ + + + + + | Specimen | + + | Blood specimen | | (specimen) | + + + + | Resulting Agency Comment | + + | [facility], [place] | + + External Lab: Cholesterol, HDL (06/11/2014) + +-------+ + + + | Component | Value | Ref Range | Performed | Pathologist | | | | | At | Signature | + +-------+ + + + | HDL | 44.5 | | | | | Cholesterol | | | | | | , External | | | | | + +-------+ + + + + + | Specimen | + + | Blood specimen | | (specimen) | + + + + | Resulting Agency Comment | + + | [facility], [place] | + + External Lab: Cholesterol, Total (06/11/2014) + +-------+ + + + | Component | Value | Ref Range | Performed | Pathologist | | | | | At | Signature | + +-------+ + + + | Cholesterol | 195 | | | | | , Total, | | | | | | External | | | | | + +-------+ + + + + + | Specimen | + + | Blood specimen | | (specimen) | + + + + | Resulting Agency Comment | + + | [facility], [place] | + + External Lab: Cholesterol, LDL Direct (06/11/2014) + +-------+ + + + | Component | Value | Ref Range | Performed | Pathologist | | | | | At | Signature | + +-------+ + + + | LDL | 115 | | | | | Cholesterol | | | | | | , Direct, | | | | | | External | | | | | + +-------+ + + + + + | Specimen | + + | Blood specimen | | (specimen) | + + + + | Resulting Agency Comment | + + | [facility], [place] | + + External Lab: eGFR (06/11/2014) + +-------+ + + + | Component | Value | Ref Range | Performed | Pathologist | | | | | At | Signature | + +-------+ + + + | eGFR, | 63 | | | | | External | | | | | + +-------+ + + + + + | Specimen | + + | Blood specimen | | (specimen) | + + + + | Resulting Agency Comment | + + | [facility], [place] | + + External Lab: Creatinine (06/11/2014) + +-------+ + + + | Component | Value | Ref Range | Performed | Pathologist | | | | | At | Signature | + +-------+ + + + | Creatinine, | 0.90 | | | | | External | | | | | + +-------+ + + + + + | Specimen | + + | Blood specimen | | (specimen) | + + + + | Resulting Agency Comment | + + | [facility], [place] | + + documented in this encounter Visit Diagnoses Not on filedocumented in this encounter"
--- OUTSIDE RECORDS SUMMARY | ~2019-03-02 | XMS | Encounter Summary ---
Demographics + + + | Address | [address] | | | [place] [address] | + + + | Home Phone | | + + + | Preferred Language | Unknown | + + + | Marital Status | Single | + + + | Mormon Affiliation | 1013 | + + + | Race | Unknown | + + + | Ethnic Group | Unknown | + + + Author + + + | Author | [facility] | | | and Dwayneana | + + + | Organization | [facility] | | | and Dwayneana [...] Providers + +------+ + | Care Gas Turbine Mechanic Name | Role | Phone | + +------+ + | Matt Kinney MD | PCP | | + +------+ + Reason for Visit +--------+ + | Reason | Comments | +--------+ + | Other | | +--------+ + Encounter Details +--------+ + + + + | Date | Type | Department | Care Team | Description | +--------+ + + + + | 06/04/ | Telephone | [facility] [place] | Gael Adam, | Other | | 2014 | | PHYSIATRY [address] | MD [address] | | | | | [place], | [place], [place] | | | | | [place] [address] | [address] | | | | | [phone] | | | +--------+ + + + [...]
--- OUTSIDE RECORDS SUMMARY | ~2019-03-02 | XMS | Encounter Summary ---
Demographics + + + | Address | [address] | | | [place] [address] | + + + | Home Phone | | + + + | Preferred Language | Unknown | + + + | Marital Status | Single | + + + | Amish Affiliation | 1013 | + + + | Race | Unknown | + + + | Ethnic Group | Unknown | + + + Author + + + | Author | [facility] | | | and Dwayneana | + + + | Organization | [facility] | | | and [...] Team Providers + +------+ + | Care Field Court Researcher Name | Role | Phone | + [...] | | | | | [address] | [place] [facility] | | | | | [place] | [place] [address] | | | | | [address] | [phone] | | | | | [phone] | | | +--------+---------+ + + + [...] You can't be awakened Date Last Reviewed: 02/08/201619995019-2446 [email or web address]. [address] [place], [place] [address]. All righ ts reserved. This information is [...] [address] | [place] | [phone] | | [facility] | | [address] | | | - LABORATORY | | [...] | OF PROCEDURE: 11/13/2017 | | | PARTS INTERPRETER: Bubba Maxwell MD, PhD, [facility] | | | PERFORMED:Coronary AngiographyLeft Heart [...] [address] | [place] | [phone] | | [facility] | | [address] | | | - LABORATORY | | [...]
--- OUTSIDE RECORDS SUMMARY | ~2019-03-02 | XMS | Encounter Summary ---
Demographics + + + | Address | [address] | | | [place] [address] | + + + | Home Phone [...] + + | Author | [facility] | | | and [place]wayneana | + + + | Organization | [facility] | | | and Dwayneana [...] Team Providers + +------+ + | Care Roll Shop Supervisor Name | Role | Phone | [...] + | 03/25/ | Telephone | [facility] | YvroseNestor | Other (Imaging) | | 2011 | | SURGERY [address] | MD [place], FACS [address] | | | | | [place], [place] | [address] [facility] | | | | | [address] | [place] [address] | | | | | [phone] | [phone] | | | | | | | [...]
--- OUTSIDE RECORDS SUMMARY | ~2019-03-02 | XMS | Encounter Summary ---
Demographics + + + | Address | [address] | | | [place] [address] | + + + | Home Phone [...] + + + | Author | [facility] | | | and Dwayneana | + + + | Organization | [facility] | | | and [...] Team Providers + +------+ + | Care Machining Engineer Name | Role | Phone | + [...] PHYSIATRY [address] | MD [address] | | | | | [place], | [place], [place] | | | | | [place] [address] | [address] | | | | | [phone] | | | +--------+ + + + [...]
--- OUTSIDE RECORDS SUMMARY | ~2019-03-02 | XMS | Encounter Summary ---
Demographics + + + | Address | [address] | | | [place] [address] | + + + | Home Phone [...] + | Author | [facility] | | | and Dwayneana | + + + | Organization | [facility] | | | and Dwayneana [...] Team Providers + +------+ + | Care Fruit Dumper Name | Role | Phone | + +------+ + PCP | Unavailable | + +------+ + Encounter Details +--------+ + + + + | Date | Type | Department | Care Team | Description | +--------+ + + + + | 07/21/ | Abstract | [facility] [place] [facility] | Gael Adam, | | | 2013 | | MEDICINE | MD [address] | | | | | [address] | [place] | | | | | [address] [place] | [id number] | | | | | [place] [address] | | | | | | [phone] | | | +--------+ + + + [...]
--- OUTSIDE RECORDS SUMMARY | ~2019-03-02 | XMS | Encounter Summary ---
Demographics + + + | Address | [address] | | | [place] [address] | + + + | Home Phone | | + + + | Preferred Language | Unknown | + + + | Marital Status | Single | + + + | Presybeterian Affiliation | 1013 | + + + | Race | Unknown | + + + | Ethnic Group | Unknown | + + + Author + + + | Author | [facility] | | | and Dwayneana | + + + | Organization | [facility] | | | and Dwayneana | [...] Team Providers + +------+ + | Care Residential Program Worker Name | Role | Phone | + [...] | | | insufficienc | [address] [place], | | | | | y, | [place] | [place] [address] | | | | | unspecified | [place], [place] | Phone: | | | | | etiology | [address] | [phone] | | | | | Coronary | Phone: | Fax: | | | | | artery | [phone] | [phone] | | | | | disease, | Fax: | | | | | | angina | [phone] | | | | | | presence [...] | | | | | | | redding or | | | | | | [...] + + | 02/14/ | Office | [facility] | Bubba Maxwell | Abnormal heart rate | | 2017 | Visit | CARDIOLOGY [address] | MD Yimi [address] | (Primary Dx); Poor | | | | [place], | [address] [place] | circulation; | | | | [place] [address] | [place] [address] | 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 | [phone] | artery, unspecified | | | | [...] whether | | | | | | redding or | | | | | | [...] CV LHC; Surgeon: Bubba Maxwell MD; Location: [facility] CV LAB CARDIAC CATHERIZATION N/A 11/13/2017 Procedure: CV LHC; Surgeon: Bubba Maxwell MD; Location: [facility] CV LAB HYSTERECTOMY [place] LYMPH NODE BIOPSY 1971 [place] NASAL SINUS SURGERY 1988 OTHER SURGICAL HISTORY Left 07/28/2014 Procedure: LEFT HEART CATH; Surgeon: Bubba Maxwell MD; Location: [facility] CARDIO VASC ULAR LAB ROTATOR CUFF REPAIR [...] f rom consideration of consultation with an metal loader if feasible. Patient also would b enefit [...] consultation by my colleague Dr. Tavarez in [place]. In the meanwhile I have asked the [...] whether | | | | | | redding or | | | | | | [...] or lesion | | type, unspecified whether redding or transplanted heart | + + documented in this encounter
--- OUTSIDE RECORDS SUMMARY | ~2019-03-02 | XMS | Encounter Summary ---
Demographics + + + | Address | [address] | | | [place] [address] | + + + | Home Phone [...] | Author | [facility] | | | and Dwayneana | + + + | Organization | [facility] | | [...] Team Providers + +------+ + | Care Clinical Trial Coordinator Name | Role | Phone | [...] + + + | Closed | | | Diagnoses | Aurelio, | OP ST | | | | | Tremor | Zen Quijano | [facility] | | | | | Incoordinati | Need | HOSPITAL | | | | | on Sarcoid | updated | [address] | | | | | Procedures | address | AVE | | | | | MRI | | [place], [place] | | | | | Cervical | | [address] | | | | | Spine w wo | | Phone: | | | | | Contrast | | [phone] | | | | | | | Fax: | | | | | | | [phone] | +--------+--------+ + + + + Diagnostic/Screening (Routine) +--------+--------+ + + + + | Status | Reason | Specialty | Diagnoses / | Referred By | Referred To | | | | | Procedures | Contact | Contact | +--------+--------+ + + + + | Closed | | | Diagnoses | Aurelio, | OP ST | | | | | Tremor | Zen Quijano | [facility] | | | | | Incoordinati | MD Need | HOSPITAL | | | | | on Sarcoid | updated | [address] | | | | | Seizure | address | AVE | | | | | ([facility]) | | [place] | | | | | Procedures | | [address] | | | | | MRI Brain w | | Phone: | | | | | wo Contrast | | [phone] | | | | | | | Fax: | | | | | | | [phone] | +--------+--------+ + + + + Evaluate & Treat (Routine) +--------+ + + + + + | Status | Reason | Specialty | Diagnoses / | Referred By | Referred To | | | | | Procedures | Contact | Contact | +--------+ + + + + + | Closed | Specialty | Sleep | Diagnoses | Kali Carey | | | Services | Medicine | HELLEN | Zen Quijano, | SLEEP | | | Required | | (obstructive | MD Need | DISORDERS | | | | | sleep | updated | CENTER [address] | | | | | apnea) | address | [place] | | | | | | | [address] | | | | | | | [place] | | | | | | | [address] | | | | | | | Phone: | | | | | | | [phone] | | | | | | | Fax: | | | | | | | [phone] | +--------+ + + + + + Reason for Visit + + + | Reason | Comments | + + + | New Patient | tremor | + + + Evaluate & Treat (Routine) +--------+ + + + + + | Status | Reason | Specialty | Diagnoses / | Referred By | Referred To | | | | | Procedures | Contact | Contact | +--------+ + + + + + | Closed | Specialty | Neurology | Diagnoses | Jair, | Aurelio, | | | Services | | Frequent | Gael Ni MD | Zen Quijano MD | | | Required | | falls | [address] | Need | | | | | Tremor | [address] | updated | | | | | | [place], | address | | | | | | [place] [address] | | | | | | | Phone: | | | | | | | [phone] | | | | | | | Fax: | | | | | | | [phone] | | +--------+ + + + + + Encounter Details +--------+---------+ + + + | Date | Type | Department | Care Team | Description | +--------+---------+ + + + | 03/18/ | Office | [facility] | Zen Carey | HELLEN (obstructive | | 2013 | Visit | [facility] | MD Macie Need updated | sleep apnea) | | | | [address] [facility], | address | (Primary Dx); | | | | [facility] [address] [place] [address] | | Tremor; | | | | [place] [address] | | Incoordination; | | | | [phone] | | Sarcoid (HCC); | | | | | | Seizure (HCC) | +--------+---------+ + + + Social [...] + + + | Blood Pressure | 110/67 | 03/18/2014 2:27 PM | | | | | PST | | + + + + + | Pulse | 92 | 03/18/2014 2:27 PM | | | | | PST | | + + + + + | Temperature | - | - | | + + + + + | Respiratory Rate | 18 | 03/18/2014 2:27 PM | | | | | PST | | + + + + + | Oxygen Saturation | - | - | | + + + + + | Inhaled Oxygen | - | - | | | Concentration | | | | + + + + + | Weight | 68.5 kg (151 lb) | 03/18/2014 2:27 PM | | | | | PST | | + + + + + | Height | 165.1 cm (5' 5") | 03/18/2014 2:27 PM | | | | | PST | | + + + + + | Body Mass Index | 25.13 | 03/18/2014 2:27 PM | | | | | PST | | + + + + + documented in this encounter Patient Instructions Patient Instructions Zen Carey MD - 03/18/2014 3:14 PM PST1) MRI Brain and C s pine 2) Sleep study 3) Return to neurology clinic in 1 month Visiting a Sleep Clinic Are you worried about having a sleep study? Talk to your healthcare provider if you have an y concerns. Learn what to expect at the sleep clinic and try to relax before you come. Before Your Study Your healthcare provider will tell you how to prepare. Ask if you should take your usual me dications. Also: Avoid napping. Avoid caffeine and alcohol. Take a shower and wash your hair (don t use hair conditioner, hair spray, and skin lot ions). Eat dinner before you come to the sleep clinic. Pack a snack if you need one before bedt tony. Bring what will make you comfortable, such as your pajamas, robe, slippers, hygiene item s, and even your own pillow. What You Can Expect When you arrive at the sleep clinic, the technologist will meet you in your room. Then you may change into your nightclothes. Small sensors are placed on your head and body with tape and cream. The sensors are then plugged into a machine that will monitor your sleep. If you need to use a restroom, the sensors can be unplugged. A camera in your room may record your body movements. The technologist will stay in a nearby room. If you need to talk to him or h er, use the intercom. What a Sleep Study Does A sleep study monitors all the stages of your sleep. To do this, the following are recorded : Eye movements Heart rate, brain waves, and muscle activity Level of oxygen in your blood Breathing and snoring Sudden leg or body movements If you have breathing problems, Continuous Positive Airway Pressure (CPAP) may be used. CPA P is a device that can help you breathe and improve your sleep. It may be used during the se cond half of your study or on another night. Getting Your Results The technologist can answer some of your questions about the sleep study. But only your hea lthcare provider can explain the results. He or she will have the report of your sleep study within a week. Then your treatment options can be discussed. [id number] [facility], [address] [place] [address], [place] [address]. All rights reserve d. This information is not intended as a substitute for professional medical care. Always fo llow your healthcare professional's instructions. documented in this encounter Progress Notes Zen Carey MD - 03/18/2014 2:27 PM PSTFormatting of this note might be differen t from the original. Zen Carey MD [address] [facility], [address] [place] [address] Neurology Outpatient New Patient Note Referring Provider: Gael Adam MD [address] [place] [address] Chief Complaint: Chief Complaint Patient presents with New Patient tremor History of Present Illness: Etelvina Benitez is a 63 y.o. female with a pertinent history of DM-II with neuropathy, hy pothyroidism, sarcoidosis, former seizures and chronic back pain who presents with tremor an d imbalance. Ms. Benitez has had issues with tremor "for decades". She says people used to point out her "bobble head" years ago. She feels that the tremor in her head as well as hands has worsened slowly over the years. She thinks her right hand is more impacted. The tremor has started t o impact her ability to type and she feels incoordinated and clumsy at times. 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 Ms. Benitez feels numb in her feet and blames this on diabetic neuropathy. She has occasional urge incontinence that h as become more of a problem over the past several years. Her memory is suffering, and she st shreya with word finding and remembering names/dates. Ms. Benitez has no family history of P D, or essential tremor. She does not drink so is unsure how the tremor responds to alcohol. She has no significant exposure to heavy metals or pesticides and denies a history of signif icant head injury. Ms. Benitez denies any dream enactment and denies rest tremor. She feels unsteady on her fee t, but denies a sensation that her "feet get stuck". She has had a decrease in smell and tas te, but only for the past several months. Ms. Benitez snores and has [facility]. She has no trouble falling asleep, but cannot maintain sleep. She wakes up to urinate once nightly and struggles with dry mouth. She does not feel refreshed in the morning and is often very sleepy during the day. She had a sleep study done over 10 years ago in [facility] that apparently showed HELLEN, but she was never treated. She did have a UPPP performed "years ago" for her snoring. Ms. Benitez notes that she was diagnosed with sarcoidosis years ago and was on Prednisone "f or a long time". She is now off of this medication and isn't sure of the status of her sarco idosis. She was never told she had neurosarcoidosis. Ms. Benitez also had several seizure lik e episodes around the age of 11. She was evaluated and told "The back part of my brain isn't working right". She was put on phenobarbital, had no further seizures, and was weaned off s ometime in the distant past. Past Medical History: Past Medical History Diagnosis Date Abnormal heart rate Poor circulation Hyperlipidemia Neuropathy Thyroid disease Depression GERD (gastroesophageal reflux disease) Diabetes mellitus (HCC) Migraine Seizure (HCC) DDD (degenerative disc disease), cervical Past Surgical History: Past Surgical History Procedure Date Lymph node biopsy 1971 [place] Hysterectomy 1975 [place] Rotator cuff repair Current Medications: Current Medications ascorbic acid (VITAMIN C) 500 mg tablet (Taking) Take 500 mg by mouth Daily. aspirin 81 mg EC tablet (Taking) Take 81 mg by mouth Daily. atorvaSTATin (LIPITOR) 40 mg tablet (Taking) Take 40 mg by mouth nightly. DULoxetine (CYMBALTA) 60 MG capsule (Taking) Take 60 mg by mouth Daily. gabapentin (NEURONTIN) 300 mg capsule (Taking) Take 1 capsule in morning and 2 capsules a t bedtime insulin lispro protamine-insulin lispro 75/25 (HUMALOG MIX [...] Allergen Reactions Oxycodone Itching Oxycontin allergy Social History: History Social History Marital Status: Single Spouse Name: N/A Number of Children: N/A Years of Education: N/A Occupational History Not on file. Social History Main Topics Smoking status: Current Every Day Smoker -- 1.5 packs/day for 37 years Smokeless tobacco: Not on file Alcohol Use: No Drug Use: No Comment: "pot in the past" Sexually Active: No Other Topics Concern Not on file Social History Narrative No narrative on file Family History: Family History Problem Relation Age of Onset Mental illness Mother Heart disease Father Diabetes Sister Review of Systems: GENERALLY: No fever, + night sweats, no anemia, + fatigue, + recent profound weight myers es. EYES: + eye problems, + use of corrective lenses, no eye injury, + double vision, no blind ness. EARS, NOSE, AND THROAT: + changes in taste or smell, no hearing difficulty, no ringing in the ears, no ear drainage, + dizziness, no voice changes, no difficulty swallowing, + signif icant snoring, + sleep apnea, no sinus problems, + major dental work. NEUROLOGICALLY: Please see the review of systems discussed above in the history of present illness. In addition, the patient has numbness/pain of legs, awake with numbness/pain, wea kness, muscle aching, coordination difficulty, change in walk, back injury, pain in neck, pa in in back, tremor/shaking, seizures, migraine, memory loss, confusion, numbness of face. PSYCHIATRIC: + depression, + sleep disorders, no anxiety, no bipolar disorder, no psychoti c episodes. CARDIOVASCULAR: No heart attacks, no heart murmur, + heart fluttering, no chest pain, + an kle swelling. LUNG DISEASE: No shortness of breath, no cough, no tuberculosis, no bloody cough, no asth ma, no emphysema/COPD. GASTROINTESTINAL: No bowel disease, no nausea or vomiting, + rectal bleeding/hemorrhoids, + constipation, no stool incontinence, no liver disease, no gallbladder disease, no abdomina l pain, no ulcers. KIDNEY DISEASE: + urinary frequency, no painful or difficult urination, no incontinence. ENDOCRINE: + diabetes, + thyroid disease, no osteopenia or osteoporosis, no breast drainag e. SKIN: No breast lumps, no skin changes, no rashes, no itches. HEMATOLOGIC/LYMPHATIC: No enlarged lymph nodes, no easy or unusual bleeding, no personal h istory of cancer. RHEUMATOLOGIC: + joint arthritis, no rheumatoid arthritis. Examination: BP 110/67 | Pulse 92 | Resp 18 | Ht 1.651 m (5' 5") | Wt 68.493 kg (151 lb) | BMI 25.13 kg/ m2 Neck Circumference: 14 3/8" Webster Sleepiness Scale: 9 General: well developed and well nourished HEENT: Nose: Nasal valve collapse: absent Turbinate hypertrophy: No Septal deviation: Yes Oropharynx: Modified Mallampati Score: 3 s/p UPPP Tonsillar size: 0 Palate: Normal Elongated Uvula: No Tongue Scalloping: Yes Teeth wagner on cheeks: Yes Overlapping teeth: Yes Overjet: 6mm Facial Profile: Maxillary deficiency: Yes Mandibular deficiency: Yes Micrognathia: Yes Cardiovascular: regular rate and rhythm, no murmurs Respiratory: clear to auscultation, no wheezes or rales and unlabored breathing Abdominal: soft, non-tender, active bowel sounds Extremities: peripheral pulses normal, no pedal edema, no clubbing or cyanosis Neurologic: Mental Status: alert, oriented to person, place, and time, speech is fluent, Normal fund o f knowledge Cranial Nerves: cranial nerves II-XII are intact Motor: no muscle wasting or atrophy, no fasciculations noted, no involuntary movements, no abnormalities of position and no pronator drift. Subtle increase in RUE tone with no associa lc cogwheeling. Coarse 4-5 Hz kinetic tremor in both hands, no-no head titubation. No rest tremor. Decreased finger taps on right, hand open/close bilaterally. 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 Reflexes: DTR's are 2/4 in all tested locations except trace at ankles. Plantar responses e quivocal Coordination/Cerebellar: rapid alternating movements impaired bilaterally and finger to nos e normal Gait: normal base and stride. Good arm swing and turn. Romberg test positive. Radiographic Review: MRI L spine 2013: Imaging was reviewed in detail during the visit. Imaging demonstrates multilevel DDD with n eural foraminal narrowing at L4-5 severe on left, moderate on right. Laboratory Review: None Assessment: Etelvina Benitez is a 63 y.o. female with a history of DM-II with neuropathy, hypothyroidi sm, sarcoidosis, former seizures and chronic back pain who presents with tremor and imbalanc e. 1) Tremor: Given length of time tremor has been present and character, essential tremor is favored. There may be superimposed parkinsonism given other subtle movement findings. Given her history of sarcoid and seizures, tremor and imbalance from a lesional cause is also poss ible. 2) Imbalance: may relate to underlying parkinsonism vs. NPH vs. Peripheral neuropathy. 3) HELLEN: likely significant given history and craniofacial anatomy. May be contributing to her issues with memory loss. 4) neck pain and sensory loss in arms: cervical radiculopathy vs. Compressive neuropathy Plan: 1) MRI Brain with and without contrast 2) MRI C-spine with and without 3) Diagnostic PSG. Will order all of the above through [place] 4) Discussed falls prevention 5) Depending on results of above, may try Sinemet trial. 6) Return to neurology clinic in 1 month. I spent 60 minutes in visitation with Etelvina Jean Emmanuel today with the majority of time spe nt counselling the patient on her diagnosis, options for her care, and coordinating her care . Electronically signed by: Zen Carey MD, 03/18/2014 14:46Electronically cris d by Zen Carey MD at 03/18/2014 4:04 PM PSTdocumented in this encounter Plan of Treatment + +---------+--------+ + + | Name | Type | Priori | Associated Diagnoses | Order Schedule | | | | ty | | | + +---------+--------+ + + | MRI Brain w wo | Imaging | Routin | Tremor | Expected: | | Contrast | | e | Incoordination | 03/18/2014, Expires: | | | | | Sarcoid (HCC) | 03/18/2015 | | | | | Seizure (HCC) | | + +---------+--------+ + + | MRI Cervical Spine w | Imaging | Routin | Tremor | Expected: | | wo Contrast | | e | Incoordination | 03/18/2014, Expires: | | | | | Sarcoid (HCC) | 03/18/2015 | + +---------+--------+ + + + + +--------+ + + | Name | Type | Priori | Associated Diagnoses | Order Schedule | | | | ty | | | + + +--------+ + + | Sleep Studies, | Outpatient | Routin | HELLEN (obstructive | Ordered: 03/18/2014 | | External - AMB | Referral | e | sleep apnea) | | | Referral | | | | | + + +--------+ + + documented as of this encounter Visit Diagnoses + + | Diagnosis | + + | HELLEN (obstructive sleep apnea) - Primary Obstructive sleep apnea (adult) (pediatric) | + + | Tremor Abnormal involuntary movements | + + | Incoordination Lack of coordination | + + | Sarcoid Sarcoidosis | + + | Seizure (HCC) Other convulsions | + + documented in this encounter
--- OUTSIDE RECORDS SUMMARY | ~2019-03-02 | XMS | Encounter Summary ---
Demographics + + + | Address | [address] | | | [place] [address] | + + + | Home Phone | | + + + | Preferred Language | Unknown | + + + | Marital Status | Single | + + + | Mosque Affiliation | 1013 | + + + | Race | Unknown | + + + | Ethnic Group | Unknown | + + + Author + + + | Author | [facility] | | | and Dwayneana | + + + | Organization | [facility] | | | and Dwayneana [...] Team Providers + +------+ + | Care C4 Planner Name | Role | Phone | + +------+ + | Matt Kinney MD | PCP | | + +------+ + Reason for Visit + + + | Reason | Comments | + + + | Appointment | | + + + Encounter Details +--------+ + + + + | Date | Type | Department | Care Team | Description | +--------+ + + + + | 07/15/ | Telephone | [facility] | Bubba Maxwell | Appointment | | 2014 | | CARDIOLOGY [address] | MD Yimi [address] | | | | | [place], | [address] [place] | | | | | [place] [address] | [place] [address] | | | | | [phone] | [phone] | | | | | | | [...]
--- OUTSIDE RECORDS SUMMARY | ~2019-03-02 | XMS | Encounter Summary ---
Demographics + + + | Address | [address] | | | [place] [address] | + + + | Home Phone | | + + + | Preferred Language | Unknown | + + + | Marital Status | Single | + + + | Orthodox Affiliation | 1013 | + + + | Race | Unknown | + + + | Ethnic Group | Unknown | + + + Author + + + | Author | [facility] | | | and Dwayneana | + + + | Organization | [facility] | | | and Dwayneana [...] Team Providers + +------+ + | Care Tablet Tester Name | Role | Phone | + +------+ + | Margie Gonzalez | PCP | | + +------+ + Reason for Visit + + + | Reason | Comments | + + + | Congestive Heart | | | Failure | | + + + Encounter Details +--------+---------+ + + + | Date | Type | Department | Care Team | Description | +--------+---------+ + + + | 01/10/ | Office | [facility] [place] | Joseph Aranda | Acute combined | | 2018 | Visit | PULMONARY [address] | MD [address] | systolic and | | | | [place], | [place] | diastolic CHF, [place] | | | | [place] [address] | [place] [address] | class 2 (HCC) | | | | [phone] | [phone] | (Primary Dx); | | | | | | Diffusion capacity | | | | | | of lung (dl), | | | | | | decreased; Tobacco | | | | | | dependence | +--------+---------+ + + + Social History [...] + + + | Blood Pressure | 90/52 | 01/10/2018 3:57 PM | | | | | PDT | | + + + + + | Pulse | 82 | 01/10/2018 3:57 PM | | | | | PDT | | + + + + + | Temperature | 36.8 C (98.2 F) | 01/10/2018 3:57 PM | | | | | PDT | | + + + + + | Respiratory Rate | 18 | 01/10/2018 3:57 PM | | | | | PDT | | + + + + + | Oxygen Saturation | 98% | 01/10/2018 3:57 PM | | | | | PDT | | + + + + + | Inhaled Oxygen | - | - | | | Concentration | | | | + + + + + | Weight | 54.4 kg (119 lb 14.9 | 01/10/2018 3:57 PM | | | | oz) | PDT | | + + + + + | Height | 165.1 cm (5' 5") | 01/10/2018 3:57 PM | | | | | PDT | | + + + + + | Body Mass Index | 19.96 | 01/10/2018 3:57 PM | | | | | PDT | | + + + + + documented in this encounter Progress Notes Joseph Aranda MD - 01/10/2018 3:20 PM [id number] smoker with compensated C HF and moderately reduced diffusion capacity who can't quit cigarettes I first saw her October 30, 2017 when she had leg edema and CHF on her chest x-ray. I put her on daily hydrochlorothiazide 25 and spironolactone 25 and warned her off salt. She found t hat the Ramen noodle she was eating had a lots of sodium in them, took the drugs, and lost 6 kg of weight in all of her leg edema. Her breathlessness is improved. She has no sputum o r wheezing. She pulmonary function tests today which were normal other than for the diffusi on capacity of 13.0, 54% of predicted, moderately impaired gas transfer. She is cut back on her smoking and keeps trying to quit but is not able to, but will try ag ain. She uses no pulmonary medicine and doesn't need any. Her hypertension, which she said she only developed in the past year, has resolved. She brown s not had coronary pain symptoms that she tells me. She has had some chest wall discomfort. She has diabetes and significant coronary disease. Dr. Maxwell cathed her and did a transe sophageal echo and she is three-vessel disease and significant mitral regurg. Physical exam: Articulate pleasant attentive very lean woman in no distress. Weight 51.4 k g blood pressure 92/52 pulse 82 regular, respirations 18, temperature 98.2, oxygen saturatio n 98% on room air. HEENT shows temporal wasting, pink conjunctiva, reactive pupils, normal oropharynx. The neck is normal with no adenopathy or JVD. The lung james are clear with d istant sounds. Heart sounds are very distant. Abdomen is benign and her legs show no edema now. Laboratory evaluation: Forced vital capacity was 2.81, 92% of predicted. FEV1 was 2.35, 10 1%. The ratio was 84%. Lung volume showed a total lung capacity of 5.04, 97% of predicted. Residual volume was 2.17, 99%. RV over total lung capacity was 101% of predicted. Diffus ion capacity was 13.0, 54% of predicted. Impression and plan: 1. CHF and hypertension: Both are now improved and she is being followed by Dr. Maxwell. 2. Tobacco dependence: We spent a long time discussing this, cinnamon sticks, will power, etc. and she will try some more. She does not need to return but she is welcome. We spent 20 minutes, at least half in face -to-face counseling Word processing was used and I apologize for uncorrected mistakes. Joseph Aranda M.D. 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
--- OUTSIDE RECORDS SUMMARY | ~2019-03-02 | XMS | Encounter Summary ---
Demographics + + + | Address | [address] | | | [place] [address] | + + + | Home Phone | | + + + | Preferred Language | Unknown | + + + | Marital Status | Single | + + + | Mu-Ism Affiliation | 1013 | + + + | Race | Unknown | + + + | Ethnic Group | Unknown | + + + Author + + + | Author | [facility] | | | and Dwayneana | + + + | Organization | [facility] | [...] Team Providers + +------+ + | Care Piece Hand Name | Role | Phone | [...] + + | Closed | Specialty | Cardiology | Diagnoses | Aria, | Hans, | | | Services | | Cervical | Layton Ni DO | Bubba | | | Required | | spondylosis | [address] | MD Yimi | | | | | Cervical | [address] | [address] | | | | | stenosis of | [place], [place] | [place] | | | | | spinal canal | [address] | [place], [place] | | | | | [place] | Phone: | [phone] Phone: | | | | | stenosis of | [phone] | [phone] | | | | | cervical | Fax: | Fax: | | | | | region | [phone] | [phone] | | | | | Cervical | | | | | | | radicular | | | | | | | pain | | | | | | | Cervicalgia | | | +--------+ + + + + + Reason for Visit + + + | Reason | Comments | + + + | New Patient | Neck pain | + + + | Arm Pain | Bilateral | + + + | Extremity Weakness | Bilateral arm | + + + Evaluate & Treat (Routine) +--------+ + + + + + | Status | Reason | Specialty | Diagnoses / | Referred By | Referred To | | | | | Procedures | Contact | Contact | +--------+ + + + + + | Closed | Specialty | Neurosurgery | Diagnoses | Aurelio, | Aria, | | | Services | | Cervical | Zen Quijano, | Layton Ni DO | | | Required | | stenosis of | MD Need | [address] | | | | | spinal canal | updated | [address] | | | | | | address | [place], [place] | | | | | | | [address] Phone: | | | | | | | [phone] | | | | | | | Fax: | | | | | | | [phone] | +--------+ + + + + + Encounter Details +--------+---------+ + + + | Date | Type | Department | Care Team | Description | +--------+---------+ + + + | 05/28/ | Office | [facility] | Layton Knapp, | Cervical spondylosis | | 2015 | Visit | NEUROSURGERY [address] | DO [address] | (Primary Dx); | | | | [address] | [address] [place], [place] | Cervical stenosis of | | | | [place], [place] | [address] | spinal canal; | | | | [address] | | Foraminal stenosis | | | | [phone] | | of cervical region; | | | | | | Cervical radicular | | | | | | pain; Cervicalgia | +--------+---------+ + + + Social History [...] + + + | Blood Pressure | 110/62 | 05/28/2014 3:44 PM | | | | | PST | | + + + + + | Pulse | 97 | 05/28/2014 3:44 PM | | | | | PST | | + + + + + | Temperature | - | - | | + + + + + | Respiratory Rate | 16 | 05/28/2014 3:44 PM | | | | | PST | | + + + + + | Oxygen Saturation | - | - | | + + + + + | Inhaled Oxygen | - | - | | | Concentration | | | | + + + + + | Weight | 69.4 kg (153 lb) | 05/28/2014 3:44 PM | | | | | PST | | + + + + + | Height | 165.1 cm (5' 5") | 05/28/2014 3:44 PM | | | | | PST | | + + + + + | Body Mass Index | 25.46 | 05/28/2014 3:44 PM | | | | | PST | | + + + + + documented in this encounter Patient Instructions Patient Instructions Layton Knapp DO - 05/28/2014 4:46 PM PSTPlease follow-up with you r primary care physician for preoperative clearance. Please follow-up with Dr. Maxwell for cardiac clearance. Please present for surgery when scheduled. documented in this encounter Progress Notes Layton Knapp DO - 05/28/2014 4:46 PM PSTFormatting of this note might be different fro m the original. Layton Knapp DO [address] [facility] [address] [place] [address] FAX: NEUROSURGERY HISTORY AND PHYSICAL EXAMINATION CHIEF COMPLAINT: Chief Complaint Patient presents with New Patient Neck pain Arm Pain Bilateral Extremity Weakness Bilateral arm HISTORY OF PRESENT ILLNESS: The patient is a 63 y.o. female with the complaint of neck suad n symptoms that began many years ago. The patient describes insidious onset, but it is wors e over the last couple of years. The symptoms have been gradually worsening. She rates the pain as severe. The symptoms are daily, continuous. She describes the pain as aching. The patient also describes arm symptoms down both sides, right worse than left. The arm sy mptoms account for at least greater than or equal to 75% of her symptoms. Her pain travels from neck into her shoulders and hands, left worse than right. She has moderate weakness i n the hands bilaterally. She does indicate a history of loss of fine motor function. Other findings of progressive myelopathy are not present. She also complains of severe low back pain, but would like the neck and arm symptoms addres sed first. Her symptoms improve with rest and changing position. Her symptoms worsen with standing, sitting, walking, kneeling, bending and twisting. She has tried lifestyle modification, pain medications, physical therapy, chiropractics, st eroid injections. PAST MEDICAL HISTORY: Past Medical History Diagnosis Date Abnormal heart rate Poor circulation Hyperlipidemia Neuropathy Thyroid disease Depression GERD (gastroesophageal reflux disease) Diabetes mellitus (HCC) Migraine Seizure (HCC) DDD (degenerative disc disease), cervical PAST SURGICAL HISTORY: Past Surgical History Procedure Date Lymph node biopsy 1971 [place] Hysterectomy 1975 [place] Rotator cuff repair CURRENT MEDICATIONS: Current Outpatient Prescriptions Medication Sig Dispense Refill ALPRAZolam (XANAX PO) Take by mouth Daily as needed. ascorbic acid (VITAMIN C) 500 mg tablet Take 500 mg by mouth Daily. aspirin 81 mg EC tablet Take 81 mg by mouth Daily. atorvaSTATin (LIPITOR) 40 mg tablet Take 40 mg by mouth nightly. DULoxetine (CYMBALTA) 60 MG capsule Take 60 mg by mouth Daily. gabapentin (NEURONTIN) 300 mg capsule TAKE ONE CAPSULE BY MOUTH EVERY MORNING AND TWO C APSULES EVERY NIGHT AT BEDTIME 90 capsule 1 insulin lispro protamine-insulin lispro 75/25 (HUMALOG MIX 75/25) 100 units/mL SUSP Inj ect under the skin 2 times daily (with breakfast & dinner). 40u BID levothyroxine (SYNTHROID, LEVOTHROID) 112 mcg tablet Take 112 mcg by mouth every mornin g (before breakfast). Multiple Vitamin (MULTI-VITAMIN DAILY PO) Take by mouth. omeprazole (PRILOSEC) 20 mg capsule Take 20 mg by mouth every morning (before breakfast ). ALLERGIES: Allergies Allergen Reactions Oxycodone Itching Oxycontin allergy SOCIAL HISTORY: The patient reports that she has been smoking. She does not have any smokeless tobacco hi story on file. She reports that she does not drink alcohol or use illicit drugs. FAMILY HISTORY: Family History Problem Relation Age of Onset Mental illness Mother Heart disease Father Diabetes Sister REVIEW OF SYSTEMS GENERALLY: No fever, + night sweats, no anemia, + fatigue, no recent profound weight change s. EYES: + eye problems, + use of corrective lenses, no eye injury, + double vision, no blindn ess, + impaired sight. EARS, NOSE, AND THROAT: + changes in taste or smell, no hearing difficulty, no ringing in t he ears, no ear drainage, + dizziness, + voice changes, + difficulty swallowing, no signific ant snoring, + sleep apnea, no sinus problems, + major dental work. NEUROLOGICALLY: Please see the review of systems discussed above in the history of present illness. In addition, the patient has numbness/pain of arms, numbness/pain of legs, awake wi th numbness/pain, weakness, muscle aching, coordination difficulty, change in walk, back inj ury, pain in neck, pain in back, tremor/shaking, headaches, migraine, memory loss, numbness of face. PSYCHIATRIC: + depression, + sleep disorders, + anxiety, no bipolar disorder, no psychotic episodes. CARDIOVASCULAR: No heart attacks, no heart murmur, no heart fluttering, no chest pain, no a nkle swelling. LUNG DISEASE: No shortness of breath, no cough, no tuberculosis, no bloody cough, no asthma , no emphysema/COPD. GASTROINTESTINAL: No bowel disease, no nausea or vomiting, no rectal bleeding, no constipat ion, no stool incontinence, no liver disease, no gallbladder disease, no abdominal pain, no ulcers. KIDNEY DISEASE: No urinary frequency, no painful or difficult urination, no incontinence. ENDOCRINE: No diabetes, no thyroid disease, no osteopenia or osteoporosis, no breast draina ge. SKIN: No breast lumps, no skin changes, no rashes, no itches. HEMATOLOGIC/LYMPHATIC: No enlarged lymph nodes, no easy or unusual bleeding, no personal hi story of cancer. RHEUMATOLOGIC: No joint arthritis, no rheumatoid arthritis. PHYSICAL EXAMINATION: Blood pressure 110/62, pulse 97, resp. rate 16, height 1.651 m (5' 5"), weight 69.4 kg (153 lb). Body mass index is 25.46 kg/(m^2). GENERAL: Etelvina Benitez is in no acute distress with unlabored respirations. The patien t does appear uncomfortable throughout the exam today. She has a resting tremor. HEENT: HEAD/FACE: EYES: EARS: NASOPHARNYX: OROPHARNYX: Normocephalic and atraumatic. There are no areas of recent trauma. Normal sclerae without icterus. No drainage or tenderness. Clear without drainage. Clear without erythema. NECK (ANTERIOR): Supple and without palpable masses. CHEST: Clear to ausculation without crackles or wheeze. HEART: Regular rate and rhythm without murmurs. ABDOMEN: Soft, non-tender, non-distended, and without palpable masses. The patient is not obese. SPINE: The cervical spine exam shows there is tenderness over the C-5 region. Range of mot ion is limited. Rotation and extension does cause symptoms to radiate into the extremities on both sides. Flexion and extension of the neck does cause severe discomfort. No tenderness in the midline of the thoracic or lumbar spine. There is no major palpable d eformity of the spine. EXTREMITIES: No cyanosis, clubbing, or edema. Distal pulses are palpable. NEUROLOGICAL EXAM: MENTAL STATUS: The patient is awake, alert, and oriented. She follows simple and complex commands. She speech is fluent, her comprehends speech well, and her repeats well. She has no apparent deficits with short or mcc memory. CRANIAL NERVES: II: Acuity is intact. Franks are full to confrontation. III, IV, : The pupils are reactive. Extraocular movements are intact. No ptosis is note d. V: Facial sensation is intact and symmetric. VII: Facial movements are symmetric. VIII: Hearing is intact bilaterally. IX, X: The uvula and palate move appropriately. XI: Shrug is equal bilaterally. XII: Tongue protrusion is midline. MOTOR EXAM: (5 IS NORMAL) * Indicates pain limited MUSCLE/ MOVEMENT: RIGHT LEFT Deltoids 4 4- Biceps 4+ 4+ Triceps 4+ 4+ Wrist Flexion 4+ 4+ Wrist Extension 4+ 4+ Median Intrinsics 4+ 4 Ulnar Intrinsics 4+ 4 Device Sales Consultant Strength 4+ 4 Hip Flexion 5 5 Hip Extension 5 5 Knee Flexion 5 5 Knee Extension 5 5 Dorsiflexion 5 5 Extensor Hallicus Longus 5 5 Plantarflexion 5 5 SENSORY EXAM: Sensory exam shows bialteral C5, C6, and C7-type dysesthesia. REFLEXES: (2 OR 2+ IS NORMAL) REFLEX: RIGHT LEFT BICEPS 2 2 BRACHIORADIALIS 2 2 TRICEPS 2 2 PATELLAR 2 2 ACHILLES 2 2 BALES'S ABSENT ABSENT PLANTAR DOWNGOING DOWNGOING GAIT: Gait is steady. PERIPHERAL NERVE/MISC: Tinel is negative at the wrists and elbows bilaterally. Phalen is negative. Straight leg raise is negative bilaterally. Jonah's test of the hips is negative bilaterally. RADIOGRAPHIC REVIEW: The patient's imaging was reviewed in detail with the patient today during the visit. The MRI of the cervical spine from 03/31/14 demonstrates loss of cervical lordosis with severe sp ondylosis C4-7. There is resulting severe central and foraminal stenosis at those levels, le ft worse than right. 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 This contributes to the central stenosis at those levels. Cervical flexion and extension views show no dynamic instability. ASSESSMENT: NEUROSURGICAL DIAGNOSES: Encounter Diagnoses Name Primary? Cervical spondylosis Yes Cervical stenosis of spinal canal Foraminal stenosis of cervical region Cervical radicular pain Cervicalgia GENERAL DIAGNOSES: Past Medical History Diagnosis Date Abnormal heart rate Poor circulation Hyperlipidemia Neuropathy Thyroid disease Depression GERD (gastroesophageal reflux disease) Diabetes mellitus (HCC) Migraine Seizure (HCC) DDD (degenerative disc disease), cervical PLAN: Etelvina Benitez presented today, and it was a pleasure seeing this patient and assessing her problems. The patient has severe spondylosis and stenosis C4-7. This is likely contribu ting to her neck and arm symptoms. I had a lengthy discussion with the patient about her options for care including surgical a nd non-surgical options. She would like to proceed with ACDF C4-7. We discussed the risks, alternatives, and benefits to surgical intervention with Ms. Benitez in clinic. These risks included but were not limited to , stroke, heart attack, numbne ss, weakness, paralysis, failure of fusion, failure of hardware, subsidence, adjacent segmen t degeneration, cerebrospinal fluid leak, bleeding, infection, injury to surrounding tissues and organs, injury from positioning, injury to the nerves, difficulty with breathing, diffi culty with swallowing, difficulty with voice change, and need for additional surgery. Surgical options were discussed and the technique to be employed was described in detail to her. All her questions were answered. We discussed that the goal of the surgery is to prevent progression of her disease, but it is not considered a cure. We also discussed that although some patients may obtain 100% sym ptom relief, it is realistic to anticipate that some symptoms will continue postoperatively despite a successful surgery. We also discussed that there is no guarantee that surgery will provide improvement in her c ondition, and indeed may even worsen the symptoms. We also discussed that in the course of the procedure the operative plan may be altered to include more, less, or different levels d epending upon findings in order to provide her with the best possible outcome. For multiple (more than 1 level fusions), I recommend the use of a bone growth stimulator p ostoperatively. This is to improve the probability and rate of fusion. She will follow-up with her primary care provider for preoperative clearance and optimizati on prior to presenting for surgery. She will also need to undergo cardiology evaluation for clearance given an episode of sever e hypotension during a shoulder surgery that resulted in aborting that surgery. ELECTRONICALLY SIGNED BY: Layton Knapp DO, 05/28/2014 16:46 documented in this en counter Plan of Treatment + + +--------+ + + | Name | Type | Priori | Associated Diagnoses | Order Schedule | | | | ty | | | + + +--------+ + + | * [facility] | Outpatient | Routin | Cervical | Ordered: 05/28/2014 | | Cardiology - AMB | Referral | e | spondylosis | | | Referral | | | Cervical stenosis of | | | | | | spinal canal | | | | | | Foraminal stenosis | | | | | | of cervical region | | | | | | Cervical radicular | | | | | | pain Cervicalgia | | + + +--------+ + + documented as of this encounter Visit Diagnoses + + | Diagnosis | + + | Cervical spondylosis - Primary Cervical spondylosis without myelopathy | + + | Cervical stenosis of spinal canal Spinal stenosis in cervical region | + + | Foraminal stenosis of cervical region Spinal stenosis in cervical region | + + | Cervical radicular pain Brachial neuritis or radiculitis nos | + + | Cervicalgia | + + documented in this encounter
--- OUTSIDE RECORDS SUMMARY | ~2019-03-02 | XMS | Encounter Summary ---
Demographics + + + | Address | [address] | | | [place] [address] | + + + | Home Phone | | + + + | Preferred Language | Unknown | + + + | Marital Status | Single | + + + | Congregation Affiliation | 1013 | + + + | Race | Unknown | + + + | Ethnic Group | Unknown | + + + Author + + + | Author | [facility] | | | and Dwayneana | + + + | Organization | [facility] | | | and [...] Team Providers + +------+ + | Care School Crossing Guard Supervisor Name | Role | Phone | + +------+ + | Matt Kinney MD | PCP | | + +------+ + Reason for Visit +--------+ + | Reason | Comments | +--------+ + | LABS | | +--------+ + Encounter Details +--------+ + + + + | Date | Type | Department | Care Team | Description | +--------+ + + + + | 08/07/ | Telephone | [facility] | Bubba Maxwell | MAGUE | | 2018 | | [place] [address] | MD Yimi [address] | | | | | [place], | [address] [place] | | | | | [place] [address] | [place] [address] | | | | | [phone] | [phone] | | | | | | | [...] Lipid Panel | Lab | Routin | Hyperlipidemia, | Expected: | | | | e | Unspecified | 08/07/2017, Expires: | | | | | Hyperlipidemia Type | 08/07/2018 | + +------+--------+ + + documented as of this encounter Visit Diagnoses + + | Diagnosis | + + | Hyperlipidemia, unspecified hyperlipidemia type - Primary | + + documented in this encounter"
--- OUTSIDE RECORDS SUMMARY | ~2019-03-02 | XMS | Encounter Summary ---
Demographics + + + | Address | [address] | | | [place] [address] | + + + | Home Phone | | + + + | Preferred Language | Unknown | + + + | Marital Status | Single | + + + | Protestant Affiliation | Unknown | + + + [...] Team Providers + +------+ + | Care Armed Security Professional Name | Role | Phone | + +------+ + | Margie Gonzalez PA-C PCP | | + +------+ + Encounter Details +--------+--------+ + + + | Date | Type | Department | Care Team | Description | +--------+--------+ + + + | 09/17/ | Travel | | | | | [...]
--- OUTSIDE RECORDS SUMMARY | ~2019-03-02 | XMS | Encounter Summary ---
Demographics + + + | Address | [address] | | | [place] [address] | + + + | Home Phone | | + + + | Preferred Language | Unknown | + + + | Marital Status | Single | + + + | Uatsdin Affiliation | Unknown | + + + | Race | White | + + + | Ethnic Group | Other Race | + + + Author + + + | Author | [facility] | + + + | Organization | [facility] | + + + | Address | Unknown | + + + | Phone | Unavailable | + + + Support + + +---------+ + | Name | Relationship | Address | Phone | + + +---------+ + | Karen Unknown | ECON | Unknown | | + + +---------+ + Care Team Providers + +------+ + | Care Boom Tender Name | Role | Phone | + +------+ + | Margie Gonzalez PA-C | PCP | | + +------+ + Reason for Visit + + + | Reason | Comments | + + + | Hypoglycemia | | + + + | Diabetes mellitus | | | type 2 | | + + + Encounter Details +--------+ + + + + | Date | Type | Department | Care Team | Description | +--------+ + + + + | 05/28/ | [facility] | General Internal | Rosa Orozco, | Hypoglycemia; | | 2019 | Visit | Medicine at Offsite | JACK [address] | Diabetes mellitus | | | | [address] | [address] | type 2 | | | | Lazara Infante Mailcode: | [place], [place] | | | | | [id number] [place], [place] | [address] | | | | | [address] | [phone] | | | | | [phone] | | | +--------+ + + + [...] + | Blood Pressure | 124/70 | 09/17/2018 10:00 AM | | | | | PDT | | + + + + + | Pulse | 69 | 09/17/2018 10:00 AM | | | | | PDT | | + + + + + | Temperature | - | - | | + + + + + | Respiratory Rate | 18 | 09/17/2018 10:00 AM | | | | | PDT | | + + + + + | Oxygen Saturation | 98% | 09/17/2018 10:00 AM | | | | | PDT | | + + + + + | Inhaled Oxygen | - | - | | | Concentration | | | | + + + + + | Weight | 55.2 kg (121 lb 12.8 | 09/17/2018 10:00 AM | | | | oz) | PDT | | + + + + + | Height | - | - | | + + + + + | Body Mass Index | - | - | | + + + + + documented in this encounter Progress Rosa Oliveira PA - 09/17/2018 2:00 PM PDTFormatting of this note might be different fro ashwini the original. [facility]Up: Jose Quinn Pulse is a 67 y.o. female with a PMHx significant for CAD, Mitral valve insuffic iency, HFr EF, PAD, cerebrovascular disease (?), tobacco abuse, hypothyroidism, htn, sarcoi dosis, peripheral neuropathy, DM2, dysphagia, falls, and depression/anxiety. She is admitted for skilled therapy following a hospitalization at [facility] 09/03-09/13 for CABG and MVR. Her hospital course was complicated by hepatic enceph alopathy, dysphagia and anorexia. She is seen today at [facility] in follow-up for Diabetes Management with recurren t Hypoglycemia since admission to SNF. RN reports: patient with recurrent symptomatic hypoglycemia 09/15: 0040 CBG 43, glucagon 15mg given, 0140 CBG 73, 0200, CBG 67 --> patient sent to ED 09/16: 0530 CBG 47, glucagon 15mg, 2 apple juices, 3 packs of honey addi crackers given, a t 550 CBG 89 Patient reports she has been symptomatic with the CBGs - diaphoresis, irritability, nausea, shaking, feeling foggy. Roslyn says she was getting low CBGs into the 60s with most doses of insulin prior to her surgery. Because of this she was frequently not giving herself insulin for fear of causing l ows (reports dosing herself only a few days a week). She relates the decrease need for insul in to her weight loss over the last several years. She says she has a low appetite and picks at food throughout the day at baseline. She does assert that she doesn't eat healthy or low sugar foods. She has had a low appetite secondary to depression since she lost her 10yrs ago. She doesn't recall all the medications she has been on in the past but asserts: metformin, insulin, januvia. She said she was diagn osed with DM in her 40s. She thinks she weighed 150-170s in her 40-50s. She hasn't had a dec rease in her insulin since she lost weight that she can recall. Peyton says her memory is foggy. She doesn't recall what happened at the hospital. She says she recalls having hallucinations. She thinks the pain medications do that. She says she's had similar issues with such in the past. She is still having hallucinations that are comple x. She says she saw a man try and crawl through the window last evening. She also saw a man sitting in the chair at toe of her bed. In addition to this she is trying to describe a smal l buzzing device that hangs from string "like a necklace" or lying around in different place s in the room. She thinks she has been in this identical room before but she cant recall whe n or why? She said the only other time she has had hallucinations like this in the past is d uring post-op after breaking her hip. Patient Active Problem List Diagnosis Depression GERD (gastroesophageal reflux disease) Hypertension Mitral valve regurgitation Diabetes mellitus (HCC) Dysphagia Acquired hypothyroidism Risk for falls Peripheral vascular disease (HCC) Neuropathy (HCC) Patient's Medications New Prescriptions No medications on file Previous Medications ACETAMINOPHEN 500 MG ORAL TABLET Take 1 tablet by mouth every six hours as needed (pain ). ASPIRIN EC 81 MG ORAL TABLET,DELAYED RELEASE (DR/EC) Take 1 tablet by mouth once daily. ATORVASTATIN 80 MG ORAL TABLET Take 80 mg by mouth once daily. CARVEDILOL 12.5 MG ORAL TABLET Take 1 tablet by mouth two times daily. Administer with food. hold dose if BPs <105, HR <50 DULOXETINE 60 MG ORAL CAPSULE,DELAYED RELEASE(DR/EC) Take 1 capsule by mouth every othe r day. FERROUS SULFATE 325 MG TOTAL SALT (65 MG ELEMENTAL) ORAL TABLET Take 1 tablet by mouth once daily. FUROSEMIDE 40 MG ORAL TABLET Take 40 mg by mouth once daily. INSULIN GLARGINE U-300 CONC (TOUJEO SOLOSTAR U-300 INSULIN) 300 UNIT/ML (1.5 ML) SUBCUTANE OUS INSULIN PEN 20 Units by Intramuscular/Subcutaneous route once daily at bedtime. INSULIN LISPRO (HUMALOG U-100 INSULIN) 100 UNIT/ML SUBCUTANEOUS SOLUTION Inject 2-6 Uni ts under the skin (SUBC) three times daily before meals. CBG < 140 give 0 CBG 140-220 give 2 units CBG 221-300 give 4 units CBG 301-400 give 6 units CBG > 400 call provider Do NOT use sliding scale at HS. LEVOTHYROXINE 100 MCG ORAL TABLET Take 100 [...] 20 mEq by mouth onc e daily. YM186-MRYT-JTVIF ACID ( MULTI) 27-800 MG-MCG ORAL TABLET Take 1 tablet by mouth two times daily. RIFAXIMIN 550 MG ORAL TABLET Take 1 tablet by mouth two times daily. TRAMADOL 50 MG ORAL TABLET Take 1 tablet by mouth every six hours as needed for moderat e pain. Modified Medications No medications on file Discontinued Medications MULTIVITAMIN ORAL TABLET Take 1 tablet by mouth once daily. Allergies Allergen Reactions Oxycodone Pruritus Oxycontin intolarant: Oxycodone tolerates. Oxycontin intolarant: Oxycodone tolerates. Physical Exam: Vitals: 09/17/18 1000 BP: 124/70 Pulse: 69 Resp: 18 SpO2: 98% Weight: 55.2 kg (121 lb 12.8 oz) Wt Readings from Last 3 Encounters: 09/17/18 55.2 kg (121 lb 12.8 oz) 09/13/18 56.2 kg (123 lb 14.4 oz) General: No acute distress, pt is a 67 y.o. female appearing stated age Mental Status: Alert and oriented x 4 HEENT: No scleral icterus or conjunctival hemorrhage. Heart: Normal rate and regular rhythm without murmur, rub or gallop Lungs: Normal respiratory effort on RA. Clear to auscultation bilaterally, no wheezes, ral es or rhonchi Abdomen: NABS throughout Skin: Warm, dry, well perfused, Neuro: No gross focal CN deficits appreciated. Good attention. States days of week and mon ths of year in reverse without error. Reports complex visual/auditory hallucinations last ni ght, none currently, hypoactive, low voice, normal rate, no dysarthria, Psych: flat, depressed affect Recent Testing: CXR 2 view 09/15/18 LLL infiltrate. Heart Prominent. The bones and soft tissues appear intact. Status post medi an sternotomy. Conclusion: LLL infiltrate. Read by Dr Guy Yu ECG 09/13/18 Sinus Theo at rate of 56. QTc 425. Read by Dr Abdon Jon Labs from [facility]: 09/15 Na 141 K 4.5 Chl 99 Co2 35 Bun 24 Creat 0.9 Ca 8.3 Alb 3.3 TBili 1.0 AST 85 ALT 117 ALP 150 WBC 11.3 RBC 3.4 HGB 9.7 HCT 30.5 MCV 90 PLT 160 HgA1C 08/29/18: 8.5 TSH 09/12/18: 4.4 Assessment and Plan: (E11.69, Z79.4) Type 2 diabetes mellitus with other specified complication, with long-term current use of insulin (HCC) (primary encounter diagnosis) (E11.649) Hypoglycemia associated with type 2 diabetes mellitus (HCC) Unstable DM2 with frequent severe hypoglycemia. Patient reported to have frequent hypoglyce frank on home regimen prior to hospitalization and was therefore not giving herself her basal insulin. She was having CBGs 160-250s at home without therapy per report. She has had limite d PO intake since admission to SNF (BF 60-70%, Lunch 10-70%, Dinner 20-40%) further complica ting dosing. - continue metformin 500mg BID (home dose) - Glargine (toujeo) 18U daily in PM - Lispro 2U with meals, hold if patient not eating or if CBG <100 - Lispro SSI 1U for CBG 200-260, 2U for 261-320, 3U for 321-380, 4U for 381-440 - CBG QID before meals and HS - Give snack if HS CBG <150 - check back on patient in 2 days (K72.90) Hepatic encephalopathy (HCC) (R41.0) Delirium (R44.3) Hallucinations (F33.9) Major Depressive Disorder, recurrent Continued hallucinations however good attention today. Suspect ongoing resolution of acute metabolic vs hepatic vs combined encephalopathy. Appears per chart notes patient had hypoten ashley and was difficult to extubate post-op. Evidence of LUCINA (Creat 0.8 --> 2.2) and hepatic insult (elevated LFTs and ammonia) post-op. Ammonia elevated in setting of hypovolemia, LUCINA, tube feeds, electrolyte derangement. Was started on lactulose and rifaximin during hospital ization. Good attention today but continues to have complex hallucinations, she is concerned but not distressed by these at this time. Recurrent hypoglycemia is impairing recovery. - recheck CMP, ammonia - DM2 regimen as above - continue lactulose and rifaximin for now, d/c pending labs - restart home dose of Duloxetine 60mg daily - check back on patient in 2 days (R63.0) Decreased appetite (R63.4) Weight loss, abnormal Likely contributing to above issue with hypoglycemia. Patient also reports she tends to gra vitate towards sweets contributing highs. Low appetite chronic per report, states she picks at food throughout the day, making prandial dosing of insulin difficult. She was #135 pre-op , now #121. - start house dietary supplement qpm (chocolate flavor) - monitor weights (will place on daily weight schedule given hx of HFrEF) - report increase in wt of >2lbs in one day or >5lbs in one week - report decrease in wt of >/= 3lbs in one day or >6lbs in one week (Z98.890) s/p MVR (Z95.1) s/p CABG x1 Patient reports intermittent chest wall pain over her lateral/posterior L chest wall, and s ome substernal. Hx of encephalopathy with several opiates. Tramadol carries high risk for en cephalopathy which may be contributing to ongoing symptoms? - Will schedule APAP 650mg TID - Add lidocaine 5% patch 1-2 patch to chest wall daily PRN - consider adding diclofenac gel as alternative pain mgmt - d/c tramadol (rare use, will trial safer alternatives) 50 min spent face to face with patient, >50% in counseling. 40 min spent in non-face to face time reviewing chart notes/history to help guide care TOMMY JohnsonC [facility] Division of Internal Medicine and Geriatrics documented in this en counter Plan of Treatment Not on filedocumented as of this encounter Visit Diagnoses + + | Diagnosis | + + | Type 2 diabetes mellitus with other specified complication, with long-term current use | | of insulin (HCC) - Primary | + + | Hypoglycemia associated with type 2 diabetes mellitus (HCC) | + + | Hepatic encephalopathy (HCC) Hepatic encephalopathy | + + | Delirium Other alteration of consciousness | + + | Hallucinations | + + | Decreased appetite Anorexia | + + | Weight loss, abnormal Loss of weight | + + | Episode of recurrent major depressive disorder, unspecified depression episode | | severity (HCC) | + + | S/P MVR (mitral valve repair) Other postprocedural status | + + | S/P CABG (coronary artery bypass graft) Postsurgical aortocoronary bypass status | + + documented in this encounter
--- OUTSIDE RECORDS SUMMARY | ~2019-03-02 | XMS | Encounter Summary ---
Demographics + + + | Address | [address] | | | [place] [address] | + + + | Home Phone | | + + + | Preferred Language | Unknown | + + + | Marital Status | Single | + + + | Catholic Affiliation | [id number] | + + + | Race | Unknown | + + + | Ethnic Group | Unknown | + + + Author + + + | Author | [facility] | | | and [place] | + + + | Organization | [facility] | | | and [facility] | [...] Team Providers + +------+ + | Care Flaker Operator Name | Role | Phone | + +------+ + | Margie Gonzalez | PCP | | + +------+ + Reason for Visit + + + | Reason | Comments | + + + | Cardiac Rehab | | + + + Evaluate & Treat (Routine) + + + + + + + | Status | Reason | Specialty | Diagnoses / | Referred By | Referred To | | | | | Procedures | Contact | Contact | + + + + + + + | Authorized | Specialty | Cardiac | Diagnoses | Maxood, | [facility] | | | Services | Rehabilitatio | Heart valve | Bubba | | | | Required | n | replaced | MD Yimi | Rehabilitatio | | | | | Mitral valve | [address] | [address] | | | | | [address] [place] | [place] | | | | | insufficienc | [place], [place] | [place], [place] | | | | | y, | [address] | [address] | | | | | unspecified | Phone: | Phone: | | | | | etiology | [phone] | [phone] | | | | | Essential | Fax: | Fax: | | | | | hypertension | [phone] | [phone] | | | | | Poor | [...] | | | REHAB | | | + + + + + + + Encounter Details +--------+---------+ + + + | Date | Type | Department | Care Team | Description | +--------+---------+ + + + | 10/29/ | Office | [facility] | Bubba Maxwell | Heart valve | | 2019 | Visit | [facility] | MD Yimi [address] | replaced; Mitral | | | | RE[facility] [place] | valve insufficiency, | | | | [address] [place] | [place] [address] | unspecified | | | | [place] [address] | [phone] | etiology | | | | [phone] | | | | | | | Yessica Whitten RN | | +--------+---------+ + + + Social [...] documented as of this encounter Progress Notes Yessica Whitten RN - 10/29/2018 11:30 AM PDT [facility] [address] [place] [address] Cardiac Rehab Evaluation Date: 10/29/2018 Patient Information Patient Name: Etelvina Benitez Date of : 1950 Age: 67 y.o. Referring Provider: Bubba Maxwell MD Encounter Diagnoses Code Name Primary? Z95.2 Heart valve replaced I34.0 Mitral valve insufficiency, unspecified etiology Etelvina Benitez (Debby) is a 67 y.o. female with a history of established carotid artery dise ase, multivessel CAD, poorly controlled diabetes- A1C 8.5, hyperlipidemia, severe mitral ins ufficiency, and tobacco use. She had a CABG X 1 and Mitral valve replacement on 09/03/18, from which she recovered rather slowly. She suffered postoperative confusion and encephalopathy which slowly resolved. Sh jose also experienced acute renal insufficiency which has mostly resolved since then. It was r eported that the patient received PRBC transfusion for postoperative anemia. She is being seen by Home Health. She is walking, and she plans to return back to work in at [employer]. Her appetite is poor. She will be seeing a kitchen cleaner. She continues to abstain from cigaret te smoking. She has been feeling really well for the past few days. She lives in [place] and prefers not to commute to [place]. Cardiac Rehab Phase II Eric atment Plan Exercise: She is walking without any adverse symptoms. She did recently fall and has sore r ibs and knee, but was checked out by a physician Nutrition: Rate Your Plate score is: 42, she has a very poor appetite and likes sugar. She will consult a kitchen cleaner. Education: Received 1:1 education regarding CAD, medications, post op OHS, diet and exercis e. She also received Valerie: Living Well with Heart Disease book. Through conversation, she appears to have good comprehension. Psycho/Social: PHQ-9 score is: 8, she is tired, moves slowly, has no appetite, sleeping poo rly. Denies depression or SI. Her son and daughter in law are staying with her and are suppo rtive. Plan: See kitchen cleaner. Continue to increase walking gradually. Continue smoking cessation. Ca ll with any questions. Patient Name: Etelvina Jean Pulse/: 1950/ signed by Yessica Whitten RN at 10/29/2018 2:34 PM PDTdocumented in this encounter Plan of Treatment Not on filedocumented as of this encounter Visit Diagnoses + + | Diagnosis | + + | Heart valve replaced Heart valve replaced by other means | + + | Mitral valve insufficiency, unspecified etiology | + + documented in this encounter"
--- OUTSIDE RECORDS SUMMARY | ~2019-03-02 | XMS | Encounter Summary ---
Demographics + + + | Address | [address] | | | [place] [address] | + + + | Home Phone | | + + + | Preferred Language | Unknown | + + + | Marital Status | Single | + + + | [employer] Affiliation | 1013 | + + + | Race | Unknown | + + + | Ethnic Group | Unknown | + + + Author + + + | Author | [facility] | | | and [place]wayneana | + + + | Organization | [facility] | | | and [place] | + + + | Address | Unknown | + + + | Phone | Unavailable | + + + Support + + +---------+ + | Name | Relationship | Address | Phone | + + +---------+ + | Andrwe Couch | ECON | Unknown | | + + +---------+ + | Shilpa Couch | ECON | Unknown | | + + +---------+ + Care Team Providers + +------+ + | [employer] Machine Shop Lead Man Name | Role | Phone | + [...] | Specialty | Neurology | Diagnoses | Jair | Aurelio, | | | Services | | Frequent | Gael Ni MD | Zen Quijano MD | | | Required | | falls | [address] | Need | | | | | Tremor | [address] | updated | | | | | | [place], | address | | | | | | [place] [address] | | | | | | | Phone: | | | | | | | [phone] | | | | | | | Fax: | | | | | | | [phone] | | +--------+ + + + + + Evaluate & Treat (Routine) +--------+ + + + + + | Status | Reason | Specialty | Diagnoses / | Referred By | Referred To | | | | | Procedures | Contact | Contact | +--------+ + + + + + | Closed | Specialty | Orthopedic | Diagnoses | Kali Adam, | | | Services | Surgery | Right | Gael Ni MD | Ronald Garza DO | | | Required | | shoulder | [address] | | | | | pain Labral | [address] | [place] | | | | | tear of | [place], | [place], [place] | | | | | shoulder, | [place] [address] | [address] | | | | | right, | Phone: | Phone: | | | | | sequela | [phone] | [phone] | | | | | | Fax: | Fax: | | | | | | [phone] | [phone] | +--------+ + + + + + Reason for Visit + + + | Reason | Comments | + + + | Back Pain | | + + + Encounter Details +--------+---------+ + + + | Date | Type | Department | Care Team | Description | +--------+---------+ + + + | 02/10/ | Office | [facility] | Gael Adam, | Frequent falls | | 2014 | Visit | PHYSIATRY [address] | [address] | (Primary Dx); | | | | [place], | [place], [place] | Tremor; Lumbalgia; | | | | [place] [address] | [address] | Lumbar facet | | | | [phone] | | arthropathy; Lumbar | | | | | | spondylosis; History | | | | | | of diabetes | | | | | | mellitus; Right | | | | | | shoulder pain; | | | | | | Labral tear of | | | | | | shoulder, right, | | | | | | sequela | +--------+---------+ + + + Social History [...] + + + | Blood Pressure | 132/82 | 02/10/2014 3:10 PM | | | | | PDT | | + + + + + | Pulse | 100 | 02/10/2014 3:10 PM | | | | | PDT | | + + + + + | Temperature | - | - | | + + + + + | Respiratory Rate | 20 | 02/10/2014 3:10 PM | | | | | PDT | | + + + + + | Oxygen Saturation | - | - | | + + + + + | Inhaled Oxygen | - | - | | | Concentration | | | | + + + + + | Weight | 68.5 kg (151 lb) | 02/10/2014 3:10 PM | | | | | PDT | | + + + + + | Height | 165.1 cm (5' 5") | 02/10/2014 3:10 PM | | | | | PDT | | + + + + + | Body Mass Index | 25.13 | 02/10/2014 3:10 PM | | | | | PDT | | + + + + + documented in this encounter Patient Instructions Patient Instructions Gael Adam MD - 02/10/2014 3:45 PM PDTPlease follow up with disha rologist Dr. Carey to review frequent falls, head tremor, memory changes, etc. Please see Dr. Sumner, orthopedic surgeon regarding your persisting right shoulder pain. Please attend the injection appointment with Javon Ivy MD. If his office has not co ntacted you within one week, to schedule the injection, please contact my clinic. Your inje ction will be performed at [facility]. Please take note of weather your pain is significantly reduced in the hours immediately following the injecti on. Return to the clinic in 6-8 weeks to review the management of your back pain. documented in this encounter Progress Notes Gael Adam MD - 02/10/2014 3:54 PM PDTThis office note has been dictated. Job ID# [id number] signed by Gael Adam MD at 02/10/2014 6:34 PM PDTGael Adam MD - 02/10/2014 12:00 AM PDT [facility] [address] [place] [id number] FAX: [phone] OFFICE VISIT PRIMARY CARE PROVIDER: Matt Kinney MD DATE OF SERVICE: 02/10/2014 PATIENT IDENTIFICATION: A 63-year-old female with right shoulder pain, low back pain, radic ular symptoms and frequent falls. HISTORY OF PRESENT ILLNESS: The patient was last seen by me on 12/24/2013. At that time, it was noted that she had acute on chronic right shoulder pain. Imaging of her right shoulder was requested. She returns to clinic today primarily to review the results of that imaging . Please see database below for MRI of her right shoulder. She indicates that her shoulder pain persists. Shoulder pain is a 6/10 on a numerical pain scale. Pain is constant in timing. She has had more than one shoulder surgery in the past. She indicates that shoulder pain is increased with forward flexion and abduction. She indic ates that her right arm has become essentially useless because of persisting right shoulder pain. She is hoping and wondering whether or not anything further can be done for her righ t shoulder. Her previous right shoulder surgeries had been with Dr. Tristan. She has had recent falls. She had 2 falls last week. She reports that she has had 4 falls within the last 6 months. She reports that her falls are primarily mechanical. Her feet keyshawn ot catch up with her. She feels unstable. She indicates that when she first stands up she f eels a bit off balance. She denies any presyncope or syncope. She denies any dizziness or v ertigo. She reports that she has tremor and head bobbing. She describes herself as a "bobbl e head." She reports that her movement seems to be less and less coordinated. She reports t hat she has bladder and bowel urgency but denies incontinence. She reports that her hands f eel shaky at times. She indicates that she is increasingly having memory problems. She is w ondering and concerned about possible Parkinson's disease. We also discussed concern over p ossible diagnosis of normal pressure hydrocephalus. She reports significant issues with vis ion. She reports that she has had diabetes for 24 years. She admits that significant numbne ss in her feet may have a role to play in her balance issues. She indicates that in the pas t she has had episodes of presyncope. She denies any presyncope associated with her recent falls. Because of her recent falls, she has had increased back pain. She reports that she has back pain that is sharp. She indicates pain is located centrally within the back. Pain is a 6/1 0 on a numerical pain scale while seated in the clinic. Pain is a 10/10 with any movement. She describes the pain as sharp. She indicates that the pain is bilateral in the central lo w back. Previously she was having back pain that radiated into the lower extremities. She h ad epidural steroid injections several months ago which gave her significant reduction in p ain. She indicates that this pain is different, this pain is staying within the back. There is no radiation to the legs. Previous lumbar imaging demonstrated some neural foraminal na rrowing. It also demonstrated significant facet arthritis. ALLERGIES: OXYCODONE. CURRENT MEDICATIONS 1. Vitamin C. 2. Enteric-coated aspirin. 3. Lipitor. 4. Cymbalta. 5. Neurontin. 6. Humalog insulin. 7. Synthroid. 8. Multivitamin with minerals. 9. Prilosec. REVIEW OF SYSTEMS: The patient denies fever, chills, shortness of breath, or chest pain. De nies skin breakdown or rash. All other review of systems negative. PHYSICAL EXAMINATION VITAL SIGNS: Heart rate 100, respiratory rate 20, blood pressure 132/82, weight 151 pounds, height 5 foot 5 inches. GENERAL: No acute distress. Alert and oriented to person, place, time and situation. HEENT : Extraocular muscles intact. Sclerae clear. NECK: Limited range of motion. Spurling's test negative. HEART: Regular rate and rhythm. N o murmurs, no gallops. LUNGS: Clear to auscultation. No wheezing, no crackles. RIGHT SHOULDER: Examination demonstrates limited range of motion with forward flexion and abduction. Drop arm test positive. Cross arm test negative. Apley scratch test positive. Im pingement sign positive. Empty cans and full cans test positive in right shoulder. She does have grimace and objective signs of pain with movement in the right shoulder. On several o ccasions she had sharp reported pain and jumped. BACK: Examination demonstrates tenderness to palpation over central low back primarily over lumbar facet joints. Lumbar facet loading with back extension reproduces low back. Pain is primarily located in region of L4-5 and L5-S1. Seated straight leg raise negative bilatera lly. Jonah's test negative. NEUROLOGICAL: Exam demonstrates unchanged strength. Her sensation in lower extremities con tinues to be numbness in the feet in a stocking distribution bilaterally. No focal weakness in lower extremities. Reflexes normal over patella bilaterally. Gait is antalgic. DATABASE: Right shoulder MRI from 01/14/2014 imaging personally reviewed by me demonstrates full-thickness tear of distal infraspinatus tendon unchanged compared to prior MRI. There is new development of a ganglion cyst within the posterior capsule. There is degenerative c hanges in the superior labrum. There is a tear through the posterior labrum. IMPRESSION 1. Frequent falls, ICD-9 V15.88. 2. Tremor, ICD-9 781.0. 3. Lumbalgia, ICD-9 724.2. 4. Lumbar facet arthritis, ICD-9 721.3. 5. Lumbar spondylosis, ICD-9 721.3. 6. History of diabetes, ICD-9 V12.29. 7. Right shoulder pain PAIN, ICD-9 719.41. 8. Labral tear of right shoulder, ICD-9 905.7. PLAN: The patient has persisting right shoulder pain. She has significant pathology in the right shoulder. She has had multiple shoulder surgeries. She has had recent physical therap y. She has tried steroid injection in the past. Shoulder pain still persists. The patient h as had Dr. Tristan operate on her shoulder in the past. She indicates that she is interested i n a second opinion regarding her shoulder pain. At this time, I am requesting orthopedic arita rgery consult with Dr. Spencer. The patient has had frequent falls. She has ataxic movement. She has a "bobble head." Thes e are her words. She has memory problems. She has some instability with gait. This does vega se question of Parkinson's disease versus normal pressure hydrocephalus, etcetera. I would like the patient to be seen by a neurologist to evaluate her frequent falls and instability . May be related to lumbar pathology. May be related to peripheral neuropathy and diabetes. She also has reported poor vision, all of which may contribute to poor balance. She will h ave neurology consult with Zen Carey. In regards to her back pain, previously back pain was substantially reduced with epidural steroid injection. At that time she was having radicular symptoms. Currently, back pain is isolated within the low back. She has had physical therapy for low back. She continues a [employer] e exercise program. She has tried anti-inflammatory medications but she has some limitation to this because of her multiple medical comorbidities, diabetes and also being on Plavix. At this time, I am requesting diagnostic and potentially therapeutic bilateral L4-5 and L5- S1 facet steroid injections for facet arthritis pain. It is anticipated that lumbar facet a rthritis pain is the main source of her current low back pain. She will return [facility] 6 weeks' time to review her response to lumbar facet steroid injections. Thank you for allowing me to be involved in the care of your patient. If you have any quest ions regarding the care of the patient, please do not hesitate to call. Greater than 40 min utes was spent [id number] today with the patient, over half of which was spent formulatin g and discussing her medical treatment plan. Gael Adam Jr, MD IMMANUEL / ISAI JOB #: [id number] cc: Tracey Kinney MD Tdocumented in this encounter Plan of Treatment + + +--------+ + + | Name | Type | Priori | Associated Diagnoses | Order Schedule | | | | ty | | | + + +--------+ + + | [facility] | Outpatient | Routin | Right shoulder | Ordered: 02/10/2014 | | Clinic Orthopedic | Referral | e | pain Labral tear of | | | | | | shoulder, right, | | | | | | sequela | | + + +--------+ + + | * [facility] | Outpatient | Routin | Frequent falls | Ordered: 02/10/2014 | | Neurology - AMB | Referral | e | Tremor | | | Referral | | | | | + + +--------+ + + documented as of this encounter Visit Diagnoses + + | Diagnosis | + + | Frequent falls - Primary Personal history of fall | + + | Tremor Abnormal involuntary movements | + + | Lumbalgia Lumbago | + + | Lumbar facet arthropathy Lumbosacral spondylosis without myelopathy | + + | Lumbar spondylosis Lumbosacral spondylosis without myelopathy | + + | History of diabetes mellitus Personal history of other endocrine, metabolic, and | | immunity disorders | + + | Right shoulder pain Pain in joint, shoulder region | + + | Labral tear of shoulder, right, sequela | + + documented in this encounter
--- OUTSIDE RECORDS SUMMARY | ~2019-03-02 | XMS | Encounter Summary ---
Demographics + + + | Address | [address] | | | [place] [address] | + + + | Home Phone | | + + + | Preferred Language | Unknown | + + + | Marital Status | Single | + + + | Mandaeism Affiliation | 1013 | + + + | Race | Unknown | + + + | Ethnic Group | Unknown | + + + Author + + + | Author | [facility] | | | and [place] | + + + | Organization | [facility] | | | and [place] | + + + | Address | [...] Team Providers + +------+ + | Care Bankruptcy Processor Name | Role | Phone | + +------+ + | Margie Gonzalez | PCP | | + +------+ + Encounter Details +--------+ + + + + | Date | Type | Department | Care Team | Description | +--------+ + + + + | 08/28/ | Abstract | [facility] | Bubba Maxwell | | | 2017 | | [address] | MD Y[address] | | | | | [place], | [address] [place] | | | | | [place] [address] | [place] [address] | | | | | [phone] | [phone] | | | | | | | [...] + | EXTERNAL LAB: | Routin | 08/20/2017 | | Results for this | | TRIGLYCERIDES | e | | | procedure are in the | | | | | | results section. | + +--------+ + + + | EXTERNAL LAB: | Routin | 08/20/2017 | | Results for this | | CHOLESTEROL, HDL | e | | | procedure are in the | | | | | | results section. | + +--------+ + + + | EXTERNAL LAB: | Routin | 08/20/2017 | | Results for this | | CHOLESTEROL, TOTAL | e | | | procedure are in the | | | | | | results section. | + +--------+ + + + | EXTERNAL LAB: | Routin | 08/20/2017 | | Results for this | | CHOLESTEROL, LDL | e | | | procedure are in the | | | | | | results section. | + +--------+ + + + | LIPID PANEL | Routin | 08/20/2017 | | Results for this | | | e | | | procedure are in the | | | | | | results section. | + +--------+ + + + documented in this encounter Results Lipid Panel (08/20/2017) + +-------+ + + + | Component | Value | Ref Range | Performed | Pathologist | | | | | At | Signature | + +-------+ + + + | VLDL | 10 | | | | | Cholesterol | | | | | | Tim | | | | | + +-------+ + + + | Chol/HDL | 2.9 | | | | | Ratio | | | | | + +-------+ + + + | Non HDL | 97 | | | | | Chol. | | | | | | (LDL+VLDL) | | | | | + +-------+ + + + + + | Specimen | + + | Blood | + + External Lab: Triglycerides (08/20/2017) + +-------+ + + + | Component | Value | Ref Range | Performed | Pathologist | | | | | At | Signature | + +-------+ + + + | Triglycerid | 48 | | | | | es, | | | | | | External | | | | | + +-------+ + + + + + | Specimen | + + | Blood | + + External Lab: Cholesterol, HDL (08/20/2017) + +-------+ + + + | Component | Value | Ref Range | Performed | Pathologist | | | | | At | Signature | + +-------+ + + + | HDL | 50.3 | mg/dl | | | | Cholesterol | | | | | | , External | | | | | + +-------+ + + + + + | Specimen | + + | Blood | + + External Lab: Cholesterol, Total (08/20/2017) + +-------+ + + + | Component | Value | Ref Range | Performed | Pathologist | | | | | At | Signature | + +-------+ + + + | Cholesterol | 147 | mg/dl | | | | , Total, | | | | | | External | | | | | + +-------+ + + + + + | Specimen | + + | Blood | + + External Lab: Cholesterol, LDL (08/20/2017) + +-------+ + + + | Component | Value | Ref Range | Performed | Pathologist | | | | | At | Signature | + +-------+ + + + | LDL | 87 | | | | | Cholesterol | | | | | | , Direct, | | | | | | External | | | | | + +-------+ + + + + + | Specimen | + + | Blood | + + documented in this encounter Visit Diagnoses Not on filedocumented in this encounter"
--- OUTSIDE RECORDS SUMMARY | ~2019-03-02 | XMS | Encounter Summary ---
Demographics + + + | Address | [address] | | | [place] [address] | + + + | Home Phone | | + + + | Preferred Language | Unknown | + + + | Marital Status | Single | + + + | Nondenominational Affiliation | 1013 | + + + | Race | Unknown | + + + | Ethnic Group | Unknown | + + + Author + + + | Author | [facility] | | | and [place] | + + + | Organization | [facility] | | | and [place] [...] Team Providers + +------+ + | Care Comedian Name | Role | Phone | + [...] + + | 08/07/ | Telephone | [facility] | Bubba Maxwell | MAGUE | | 2018 | | [address] | MD [address] | | | | | [place], | [address] [place] | | | | | [place] [address] | [place] [address] | | | | | [phone] | [phone] | | | | | | | [...]
--- OUTSIDE RECORDS SUMMARY | ~2019-03-02 | XMS | Encounter Summary ---
Demographics + + + | Address | [address] | | | [place] [address] | + + + | Home Phone [...] + + + | Author | [facility] | | | and Dwayneana | + + + | Organization | [facility] | | | and Dwayneana [...] Team Providers + +------+ + | Care Custom Bookbinder Name | Role | Phone | + +------+ + | Margie Gonzalez | PCP | | + +------+ + Encounter Details +--------+ + + + + | Date | Type | Department | Care Team | Description | +--------+ + + + + | 06/27/ | Orders Only | [facility] | Margie Gonzalez, | | | 2017 | | CONVERSION [address] | [place] [address] | | | | | [place] | [place] | | | | | [place], [place] | [address] | | | | | [address] | [phone] | | | | | [phone] | | | +--------+ + + + [...] + +--------+ + + + | ECHO INTERPRETATION | Routin | 06/27/2017 | | Results for this | | OF OUTSIDE FILMS | e | 5:09 PM | | procedure are in the | | | | PST | | results section. | + +--------+ + + + documented in this encounter Results ECHO Interpretation of Outside Films (06/27/2017 5:09 PM PST) + + | Specimen | + + | | + + + + + | Impressions | Performed At | + + + | 1. The left ventricle is normal in size, wall thickness and mildly | | | impaired systolic function EF 40-45%. Akinetic inferior and | | | inferolateral segments. 2. The right ventricle is normal in size and | | | function. 3. Severe mitral regurgitation with moderately dilated left | | | atrium. 4. There is no pericardial effusion. | | + + + + + + | Narrative | Performed At | + + + | Patient Name: Etelvina Benitez Date of : 1950 | | | Performing Physician: Cliff Mercedes | | | | | | INDICATIONS Abnormal EKG CONCLUSIONS | | | 1. The left ventricle is normal in size, wall thickness and mildly | | | impaired systolic function EF 40-45%. Akinetic inferior and | | | inferolateral segments. 2. The right ventricle is normal in size and | | | function. 3. Severe mitral regurgitation with moderately dilated left | | | atrium. 4. There is no pericardial effusion. FINDINGS -------- | | | ECG rhythm: Sinus rhythm. Study: A 2-dimensional transthoracic | | | echocardiogram with m-mode, spectral and color flow Doppler was | | | perfomed. Study: This was a technically adequate study. Left | | | Ventricle: Overall left ventricular systolic function is mildly | | | impaired with, an EF between 40 - 45 %. Left Ventricle: The left | | | ventricle cavity size is normal. Left Ventricle: Left ventricular | | | wall thickness is normal. Left Ventricle: Pseudonormal LV diastolic | | | filling pattern, consistent with elevated LA pressure and moderate | | | dysfunction (Grade II). Akinetic inferior and inferolateral segments. | | | Right Ventricle: The right ventricle is normal in size and function. | | | Left Atrium: The left atrium is moderately enlarged. Right Atrium: | | | The right atrium is normal in size. Aortic Valve: There is mild | | | aortic valve sclerosis. Aortic Valve: There is no evidence of aortic | | | regurgitation. Mitral Valve: The mitral valve is normal. Mitral | | | Valve: Severe mitral regurgitation is present. Tricuspid Valve: The | | | tricuspid valve appears structurally normal. Tricuspid Valve: Trace | | | tricuspid regurgitation present. Tricuspid Valve: There is no | | | evidence of pulmonary hypertension. Tricuspid Valve: The right | | | ventricular systolic pressure (pulmonary artery systolic pressure), as | | | measured by Doppler, is 31.50mmHg. Pulmonic Valve: The pulmonic | | | valve is normal. Pulmonic Valve: Mild pulmonic regurgitation. | | | Pericardium: There is no pericardial effusion. Pericardium: No | | | pleural effusion seen. IVC/Hepatic Veins: The IVC is normal size | | | (1.5-2.5cm) and collapses >50% with sniff, consistent with central | | | venous pressures of 5-10mmHg. Aorta: The aortic root, ascending aorta | | | and aortic arch are normal in size. MEASUREMENTS | | | Ao asc: 2.52 cm IVC: 2.48 cm EDV(Teich): 131.18 ml IVSd: | | | 0.89 cm LVIDd: 5.22 cm LVPWd: 0.99 cm LVOT Area: 2.98 | | | cm2 LVOT Diam: 1.95 cm %FS: 19.77 % EF(Teich): 40.26 % | | | ESV(Teich): 78.36 ml LVIDs: 4.19 cm SV(Teich): 52.82 ml | | | RVIDd: 1.49 cm LVEF MOD A2C: 45.68 % SV MOD A2C: 62.11 ml | | | LVEF MOD A4C: 49.95 % SV MOD A4C: 69.26 ml EF Biplane: | | | 48.27 % LVEDV MOD BP: 138.17 ml LVESV MOD BP: 71.46 ml LVEDV | | | MOD A2C: 135.96 ml LVLd A2C: 8.26 cm LVEDV MOD A4C: 138.64 | | | ml LVLd A4C: 8.04 cm LVESV MOD A2C: 73.84 ml LVLs A2C: | | | 7.32 cm LVESV MOD A4C: 69.38 ml LVLs A4C: 7.28 cm LAESV(A-L): | | | 69.21 ml LAESV Index (A-L): 43.25 ml/m2 LAAs A2C: 21.85 | | | cm2 LAESV A-L A2C: 78.82 ml LALs A2C: 5.14 cm LAAs A4C: | | | 18.83 cm2 LAESV A-L A4C: 59.67 ml LALs A4C: 5.04 cm RAAs: | | | 11.34 cm2 RAESV A-L: 26.19 ml RAESV MOD: 27.03 ml RALs: | | | 4.17 cm Ao Diam: 3.17 cm LA Diam: 4.26 cm LA/Ao: 1.34 | | | TAPSE: 2.26 cm AV maxP.93 mmHg AV meanP.84 mmHg AV | | | Vmax: 1.49 m/s AV Vmean: 1.16 m/s AV VTI: 31.58 cm ИРИНА | | | Vmax: 1.70 cm2 ИРИНА (VTI): 1.59 cm2 AVAI Vmax: 0.00 cm2/m2 | | | AVAI (VTI): 0.00 cm2/m2 LVOT maxP.89 mmHg LVOT meanPG: | | | 1.66 mmHg LVSI Dopp: 31.58 ml/m2 LVSV Dopp: 50.53 ml LVOT | | | Vmax: 0.85 m/s LVOT Vmean: 0.62 m/s LVOT VTI: 16.90 cm MR | | | maxP.52 mmHg MR meanP.94 mmHg MR Vmax: 6.04 m/s | | | MR Vmean: 4.73 m/s MR VTI: 192.66 cm MV A Chad: 1.06 m/s | | | MV DecT: 213.92 ms MV E Chad: 1.29 m/s MV E/A Ratio: 1.21 | | | MV PHT: 62.03 ms MVA By PHT: 3.54 cm2 Septal e': 0.05 m/s | | | Septal E/e': 22.77 Lateral e': 0.05 m/s Lateral E/e': 22.35 | | | P Vein D: 0.74 m/s P Vein S/D Ratio: 0.46 P Vein S: 0.34 | | | m/s PV maxP.71 mmHg PV Vmax: 0.82 m/s RAP: 5 mmHg | | | RVSP: 31.49 mmHg TR maxP.49 mmHg TR Vmax: 2.57 m/s | | | Exhaust Tender: Authenticated by: Cliff Mercedes Report Date/Time: | | | 06-27-2017 19:30:24 | | + + + + + | Procedure Note | + + | Jesu Lopez - 12/12/2018 3:29 PM PDT Patient Name: Luis Enrique Benitez of | | : 1950 Performing Physician: Cliff | | [place] INDICATIONS------ | | -----Abnormal EKG CONCLUSIONS 1. The left ventricle is normal in size, wall | | thickness and mildly impaired systolic function EF 40-45%. Akinetic inferior and | | inferolateral segments.2. The right ventricle is normal in size and function.3. Severe | | mitral regurgitation with moderately dilated left atrium.4. There is no pericardial | | effusion. FINDINGS--------ECG rhythm: Sinus rhythm.Study: A 2-dimensional transthoracic | | echocardiogram with m-mode, spectral and color flow Doppler was perfomed.Study: This was | | a technically adequate study.Left Ventricle: Overall left ventricular systolic function | | is mildly impaired with, an EF between 40 - 45 %.Left Ventricle: The left ventricle | | cavity size is normal.Left Ventricle: Left ventricular wall thickness is normal.Left | | Ventricle: Pseudonormal LV diastolic filling pattern, consistent with elevated LA | | pressure and moderate dysfunction (Grade II). Akinetic inferior and inferolateral | | segments.Right Ventricle: The right ventricle is normal in size and function.Left | | Atrium: The left atrium is moderately enlarged.Right Atrium: The right atrium is normal | | in size.Aortic Valve: There is mild aortic valve sclerosis.Aortic Valve: There is no | | evidence of aortic regurgitation.Mitral Valve: The mitral valve is normal.Mitral Valve: | | Severe mitral regurgitation is present.Tricuspid Valve: The tricuspid valve appears | | structurally normal.Tricuspid Valve: Trace tricuspid regurgitation present.Tricuspid | | Valve: There is no evidence of pulmonary hypertension.Tricuspid Valve: The right | | ventricular systolic pressure (pulmonary artery systolic pressure), as measured by | | Doppler, is 31.50mmHg.Pulmonic Valve: The pulmonic valve is normal.Pulmonic Valve: Mild | | pulmonic regurgitation.Pericardium: There is no pericardial effusion.Pericardium: No | | pleural effusion seen.IVC/Hepatic Veins: The IVC is normal size (1.5-2.5cm) and | | collapses >50% with sniff, consistent with central venous pressures of 5-10mmHg.Aorta: | | The aortic root, ascending aorta and aortic arch are normal in size. | | MEASUREMENTS Ao asc: 2.52 cmIVC: 2.48 cmEDV(Teich): 131.18 mlIVSd: | | 0.89 cmLVIDd: 5.22 cmLVPWd: 0.99 cmLVOT Area: 2.98 [id number] Diam: 1.95 cm%FS: | | 19.77 %EF(Teich): 40.26 %ESV(Teich): 78.36 mlLVIDs: 4.19 cmSV(Teich): 52.82 | | mlRVIDd: 1.49 cmLVEF MOD A2C: 45.68 %SV MOD A2C: 62.11 mlLVEF MOD A4C: 49.95 %SV | | MOD A4C: 69.26 mlEF Biplane: 48.27 %LVEDV MOD BP: 138.17 mlLVESV MOD BP: 71.46 | | mlLVEDV MOD A2C: 135.96 mlLVLd A2C: 8.26 cmLVEDV MOD A4C: 138.64 mlLVLd A4C: | | 8.04 cmLVESV MOD A2C: 73.84 mlLVLs A2C: 7.32 cmLVESV MOD A4C: 69.38 mlLVLs A4C: | | 7.28 cmLAESV(A-L): 69.21 mlLAESV Index (A-L): 43.25 ml/m2LAAs A2C: 21.85 [id number] | | A-L A2C: 78.82 mlLALs A2C: 5.14 cmLAAs A4C: 18.83 [id number] A-L A4C: 59.67 mlLALs | | A4C: 5.04 cmRAAs: 11.34 [id number] A-L: 26.19 mlRAESV MOD: 27.03 mlRALs: 4.17 | | cmAo Diam: 3.17 cmLA Diam: 4.26 cmLA/Ao: 1.34TAPSE: 2.26 cmAV maxP.93 | | mmHgAV meanP.84 mmHgAV Vmax: 1.49 m/Brittani Vmean: 1.16 m/Brittani VTI: 31.58 cmAVA | | Vmax: 1.70 cm2AVA (VTI): 1.59 [id number] Vmax: 0.00 cm2/m2AVAI (VTI): 0.00 | | cm2/m2LVOT maxP.89 mmHgLVOT meanP.66 mmHgLVSI Dopp: 31.58 ml/m2LVSV Dopp: | | 50.53 mlLVOT Vmax: 0.85 m/sLVOT Vmean: 0.62 m/sLVOT VTI: 16.90 cmMR maxPG: | | 146.52 mmHgMR meanP.94 mmHgMR Vmax: 6.04 m/sMR Vmean: 4.73 m/sMR VTI: | | 192.66 cmMV A Chad: 1.06 m/sMV DecT: 213.92 msMV E Chad: 1.29 m/sMV E/A Ratio: | | 1.21MV PHT: 62.03 msMVA By PHT: 3.54 [id number] e': 0.05 m/sSeptal E/e': | | 22.77Lateral e': 0.05 m/sLateral E/e': 22.35P Vein D: 0.74 m/sP Vein S/D Ratio: | | 0.46P Vein S: 0.34 m/sPV maxP.71 mmHgPV Vmax: 0.82 m/sRAP: 5 mmHgRVSP: | | 31.49 mmHgTR maxP.49 mmHgTR Vmax: 2.57 m/s Exhaust Tender:Authenticated by: | | [facility] Date/Time: 06-27-2017 19:30:24 IMPRESSION: 1. The left ventricle is | | normal in size, wall thickness and mildly impaired systolic function EF 40-45%. | | Akinetic inferior and inferolateral segments.2. The right ventricle is normal in size | | and function.3. Severe mitral regurgitation with moderately dilated left atrium.4. There | | is no pericardial effusion. | |LVPWd: 0.99 cm | |LVOT Area: 2.98 cm2 | |LVOT Diam: 1.95 cm | |%FS: 19.77 % | |EF(Teich): 40.26 % | |ESV(Teich): 78.36 ml | |LVIDs: 4.19 cm | |SV(Teich): 52.82 ml | |RVIDd: 1.49 cm | |LVEF MOD A2C: 45.68 % | |SV MOD A2C: 62.11 ml | |LVEF MOD A4C: 49.95 % | |SV MOD A4C: 69.26 ml | |EF Biplane: 48.27 % | |LVEDV MOD BP: 138.17 ml | |LVESV MOD BP: 71.46 ml | |LVEDV MOD A2C: 135.96 ml | |LVLd A2C: 8.26 cm | |LVEDV MOD A4C: 138.64 ml | |LVLd A4C: 8.04 cm | |LVESV MOD A2C: 73.84 ml | |LVLs A2C: 7.32 cm | |LVESV MOD A4C: 69.38 ml | |LVLs A4C: 7.28 cm | |LAESV(A-L): 69.21 ml | |LAESV Index (A-L): 43.25 ml/m2 | |LAAs A2C: 21.85 cm2 | |LAESV A-L A2C: 78.82 ml | |LALs A2C: 5.14 cm | |LAAs A4C: 18.83 cm2 | |LAESV A-L A4C: 59.67 ml | |LALs A4C: 5.04 cm | |RAAs: 11.34 cm2 | |RAESV A-L: 26.19 ml | |RAESV MOD: 27.03 ml | |RALs: 4.17 cm | |Ao Diam: 3.17 cm | |LA Diam: 4.26 cm | |LA/Ao: 1.34 | |TAPSE: 2.26 cm | |AV maxP.93 mmHg | |AV meanP.84 mmHg | |AV Vmax: 1.49 m/s | |AV Vmean: 1.16 m/s | |AV VTI: 31.58 cm | |ИРИНА Vmax: 1.70 cm2 | |ИРИНА (VTI): 1.59 cm2 | |AVAI Vmax: 0.00 cm2/m2 | |AVAI (VTI): 0.00 cm2/m2 | |LVOT maxP.89 mmHg | |LVOT meanP.66 mmHg | |LVSI Dopp: 31.58 ml/m2 | |LVSV Dopp: 50.53 ml | |LVOT Vmax: 0.85 m/s | |LVOT Vmean: 0.62 m/s | |LVOT VTI: 16.90 cm | |MR maxP.52 mmHg | |MR meanP.94 mmHg | |MR Vmax: 6.04 m/s | |MR Vmean: 4.73 m/s | |MR VTI: 192.66 cm | |MV A Chad: 1.06 m/s | |MV DecT: 213.92 ms | |MV E Chad: 1.29 m/s | |MV E/A Ratio: 1.21 | |MV PHT: 62.03 ms | |MVA By PHT: 3.54 cm2 | |Septal e': 0.05 m/s | |Septal E/e': 22.77 | |Lateral e': 0.05 m/s | |Lateral E/e': 22.35 | |P Vein D: 0.74 m/s | |P Vein S/D Ratio: 0.46 | |P Vein S: 0.34 m/s | |PV maxP.71 mmHg | |PV Vmax: 0.82 m/s | |RAP: 5 mmHg | |RVSP: 31.49 mmHg | |TR maxP.49 mmHg | |TR Vmax: 2.57 m/s | | | |Exhaust Tender: | |Authenticated by: Cliff Mercedes | |Report Date/Time: 06-27-2017 19:30:24 | | | |IMPRESSION: | |1. The left ventricle is normal in size, wall thickness and mildly impaired systolic functi on EF 40-45%. Akinetic inferior and inferolateral segments. | |2. The right ventricle is normal in size and function. | |3. Severe mitral regurgitation with moderately dilated left atrium. | |4. There is no pericardial effusion. | + + documented in this encounter Visit Diagnoses Not on filedocumented in this encounter"
--- OUTSIDE RECORDS SUMMARY | ~2019-03-02 | XMS | Encounter Summary ---
Demographics + + + | Address | [address] | | | [place] [address] | + + + | Home Phone | | + + + | Preferred Language | Unknown | + + + | Marital Status | Single | + + + | Yazidi Affiliation | 1013 | + + + | Race | Unknown | + + + | Ethnic Group | Unknown | + + + Author + + + | Author | [facility] | | | and Dwayneana | + + + | Organization | [facility] | | | and [...] Team Providers + +------+ + | Care Excellence Coach Name | Role | Phone | + [...] rate | | 2013 | | [facility] | MD Macie Need updated | (Primary Dx); Poor | | | | [address] [facility], | address | circulation; | | | | [address] [place] | | Hyperlipidemia; | | | | [place] [address] | | Neuropathy; Thyroid | | | | [phone] | | disease; Depression; | | | [...]
--- OUTSIDE RECORDS SUMMARY | ~2019-03-02 | XMS | Encounter Summary ---
Demographics + + + | Address | [address] | | | [place] [address] | + + + | Home Phone | | + + + | Preferred Language | Unknown | + + + | Marital Status | Single | + + + | Confucianist Affiliation | 1013 | + + + | Race | Unknown | + + + | Ethnic Group | Unknown | + + + Author + + + | Author | [facility] | | | and Dwayneana | + + + | Organization | [facility] | | | and Dwayneana [...] Providers + +------+ + | Care Roll Forming Machine Set Up Mechanic Name | Role | Phone | [...] (Primary Dx) | | | | [address] [facility], | address | | | | | [address] [place] | | | | | | [place] [address] | | | | | | [phone] | | | +--------+ + + + [...]
--- OUTSIDE RECORDS SUMMARY | ~2019-03-02 | XMS | Encounter Summary ---
Demographics + + + | Address | [address] | | | [place] [address] | + + + | Home Phone [...] Author | [facility] | | | and Dwanyeana | + + + | Organization | [facility] | | | and [...] Team Providers + +------+ + | Care Metallurgical Analyst Name | Role | Phone | [...] of carotid | | | | [place], [place] | [address] [place] | artery without | | | | [address] | [place] [address] | mention of cerebral | | | | [phone] | [phone] | infarction (Primary | | | | [...]
--- OUTSIDE RECORDS SUMMARY | ~2019-03-02 | XMS | Encounter Summary ---
Demographics + + + | Address | [address] | | | [place] [address] | + + + | Home Phone | | + + + | Preferred Language | Unknown | + + + | Marital Status | Single | + + + | Baptist Affiliation | 1013 | + + + | Race | Unknown | + + + | Ethnic Group | Unknown | + + + Author + + + | Author | [facility] | | | and Dwayneana | + + + | Organization | [facility] | | | and [...] Team Providers + +------+ + | Care Financial Services Director Name | Role | Phone | + [...] obstructive | MD Yimi | [address] | | | | | pulmonary | [address] | [place], | | | | | disease, | St [place] | [place] | | | | | unspecified | [place], [place] | [address] | | | | | COPD type | [address] | Phone: | | | | | ([facility]) | Phone: | [phone] | | | | | | [phone] | Fax: | | | | | | Fax: | [phone] | | | | | | [phone] | | +--------+ + + + + + Encounter Details +--------+---------+ + + + | Date | Type | Department | Care Team | Description | +--------+---------+ + + + | 10/30/ | Office | [facility] | Josehp Aranda | Acute combined | | 2018 | Visit | PULMONARY [address] | MD Avinash [address] | 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
--- OUTSIDE RECORDS SUMMARY | ~2019-03-02 | XMS | Encounter Summary ---
Demographics + + + | Address | [address] | | | [place] [address] | + + + | Home Phone | | + + + | Preferred Language | Unknown | + + + | Marital Status | Single | + + + | Mormon Affiliation | 1013 | + + + | Race | Unknown | + + + | Ethnic Group | Unknown | + + + Author + + + | Author | [facility] | | | and Dwayneana | + + + | Organization | [facility] | | | and [...] Team Providers + +------+ + | Care Senior Php Developer Name | Role | Phone | + +------+ + | Matt Kinney MD | PCP | | + +------+ + Reason for Visit + + + | Reason | Comments | + + + | Medication | | | Management | | + + + Encounter Details +--------+ + + + + | Date | Type | Department | Care Team | Description | +--------+ + + + + | 09/29/ | [facility] | [facility] | Gael Adam, | Medication | | 2013 | | PHYSIATRY [address] | MD [address] | Management | | | | [place], | [place] | | | | | [place] [address] | [address] | | | | | [phone] | | | +--------+ + + + [...]
--- OUTSIDE RECORDS SUMMARY | ~2019-03-02 | XMS | Encounter Summary ---
Demographics + + + | Address | [address] | | | [place] [address] | + + + | Home Phone [...] Author | [facility] | | | and Dwayneana | + + + | Organization | [facility] [...] Team Providers + +------+ + | Care Blow Machine Tender Starch Spraying Name | Role | Phone | + +------+ + | Margie Gonzalez | PCP | | + +------+ + Encounter Details +--------+ + + + + | Date | Type | Department | Care Team | Description | +--------+ + + + + | 10/10/ | Orders Only | [facility] [place] | Trav Acosta | | | 2018 | | CARDIOLOGY [address] | [place] | | | | | [place], | | | | | | [place] [address] | | | | | | [phone] | | | +--------+ + + + [...]
--- OUTSIDE RECORDS SUMMARY | ~2019-03-02 | XMS | Clinical Summary ---
Demographics + + + | Address | [address] | | | [place] [address] | + + + | Home Phone | | + + + | Preferred Language | Unknown | + + + | Marital Status | Single | + + + | Restorationism Affiliation | 1013 | + + + | Race | Unknown | + + + | Ethnic Group | Unknown | + + + Author + + + | Author | [facility] | | | and Dwayneana | + + + | Organization | [facility] | | | and [...] Team Providers + +------+ + | Care Heavy Mobile Equipment Repairer Name | Role | Phone | + +------+ + | Margie Gonzalez | PCP | | + +------+ + Allergies + + + + + + | Active Allergy | Reactions | Severity | Noted | Comments | | | | | Date | | + + + + + + | Oxycodone | Itching | High | 03/31/20 | Oxycontin | | | | | 14 | intolarant: | | | | | | Oxycodone tolerates. | | | | | | Oxycontin | | | | | | intolarant: | | | | | | Oxycodone tolerates. | | | | | | Oxycontin | | | | | | intolarant: | | | | | | Oxycodone tolerates. | | | | | | Oxycontin | | | | | | intolarant: | | | | | | Oxycodone tolerates. | | | | | | | [...] mg tablet | Daily. | | | 820 | | e | | | | [...] | mouth as needed. | | | 620 | | e | | | | [...] | | + + + +---------+------+------+-------+ | insulin glargine | Inject 20 Units | | 0 | 05/3 | | Activ | | (TOMARIE SOLOSTAR) | under the skin | | | 0/20 | | e | | 300 units/mL | nightly. | | | 19 | | | | concentrated | | | | | | | | injection (pen) | | | | | | | + + + +---------+------+------+-------+ | carvedilol (COREG) | Take 12.5 mg by | | 0 | | | Activ | | 12.5 mg tablet | mouth 2 times daily | | | | | e | | | (with breakfast & | | | | | | | | dinner). | | | | | | + + + +---------+------+------+-------+ | albuterol | Inhale into the | | 0 | | | Activ | | (VENTOLIN HFA) 90 | lungs as needed. | | | | | e | | mcg/puff inhaler | | | | | | | + + + +---------+------+------+-------+ | atorvaSTATin | Take 1 tablet by | 90 | 1 | 12/23 | | Activ | | (LIPITOR) 40 mg | mouth Daily. | tablet | | 10/10 | | e | | tablet | | | | 19 | | | + + + +---------+------+------+-------+ Active Problems + + + | Problem | Noted Date | + + + | Heart valve replaced | 10/09/2018 | + + + + + | Overview: XR chest September 2018 Near complete resolution of | | small left pleural effusion with some trace residual effusion | | versus subsegmental atelectasis. 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, unspecified | | | | | | laterality (Primary | | | | | | Dx); Coronary artery | | | | | | disease, angina | | | | | | presence | | | | | | unspecified, | | | | | | unspecified vessel | | | | | | or lesion type, | | | | | | unspecified whether | | | | | | [place] or | | | | | | transplanted heart | +--------+ + + + + | 01/15/ | Office | Cardiology | Bubba Ornelas | Abnormal heart rate | | 2018 | Visit | | MD Yimi | (Primary Dx); | | | | | | Stenosis [...] breath) | +--------+ + + + + | 01/15/ | Hospital | Radiology | Bubba Ornelas | Heart valve | | 2018 | Encounter | | MD Yimi | replaced; Mitral | | | | [...] breath) | +--------+ + + + + | 12/25/ | Telephone | Cardiology | Bubba Ornelas | Lab Order | | 2019 | | | MD Yimi | | [...] | | + + + + + Plan of Treatment [...] 65+ | 5 | | | | High/Highest Risk (1 | | | | | of 2 - PCV13) | | | | + + + + + | Vaccine: Influenza | | 01/24/2018, 02/14/2017, | | | (#1) | 9 | 03/11/2014, Additional history | | | | | exists | | + + + + + | Hemoglobin A1c | | 01/14/2019, 06/21/2017, | | | Screening | 9 | 06/11/2014 | | + + + + + Procedures + +--------+ + + + | [...] | LABS - EXTERNAL SCAN | | 01/14/2019 | | Results for this [...] | EXTERNAL LAB: NATHANIEL | Routin | 01/14/2019 | | Results [...] section. | + +--------+ + + + from Last 3 Months Results ECHO Complete (01/15/2019 1:58 PM PDT) [...] | | | | | | n Hayes | | | | | + +--------+ [...] | ETELVINA WIGGINS Room Number Patient Number [id number] Date of | | | Study 01/15/2019 Visit Number [id number] | | | Referring Physician YIMI ORNELAS MD Accession | | | [id number] Bench Examiner CONOR VILLASEÑOR Number | | | Date of 1950 Interpreting | | | YIMI ORNELAS MD | | | Physician Age 68 year(s) Nurse Gender | | | Female Stress Flight Engineer Performance Qualified Procedure Type | | | of Study [...] WIGGINS Room Number Patient Number | | [id number] Date of Study 01/15/2019 Visit Number [id number] | | Referring Physician YIMI ORNELAS MD Bench Examiner | | CONOR VILLASEÑOR Number Date of [...] | + +---------+ + + External Lab: [facility]ATHANIEL (01/14/2019) + +-------+ + + + | [...] + + | Blood | + + LABS - EXTERNAL SCAN (01/14/2019 12:00 AM PDT) + + + | Narrative | Performed At | + + + | Ordered by an | | | unspecified provider. | | + + + Lipid Panel (01/14/2019) + +---------+ [...] Blood | + + CBC with Differential (01/14/2019) + +---------+ + [...] + + | Blood | + + from Last 3 Months Insurance + +--------+ +--------+ +---------+--------+ | Payer | Benefi | Subscriber | Effect | Phone | Address | Type | | | t Plan | ID | efrain | | | | | | / | | Dates | | | | | | Group | | | | | | + +--------+ +--------+ +---------+--------+ | BCBS | BCBS | [id number] | | | | PPO | | | [place] | | 017-Pr | | | | | | L FEP | | esent | | | | + +--------+ +--------+ +---------+--------+ | MEDICARE | MEDICA | [id number] | 10/22/19 | [phone] | | Medica | | | RE | | 15-Pre | 5 | | re | | | PART A | | sent | | | | | | AND B | | | | | | + +--------+ +--------+ +---------+--------+ | AETNA SENIOR | AMERIC | [id number] | 04/23/19 | [phone] | | Indemn [...] | + +--------+ +--------+ + + | PulseEtelvina | Person | Self | [birth year] | | [address] | | | al/Fam | | 1951 | [phone] | [place] [address] | | | christian | | | 4 (Home) | | + +--------+ +--------+ + + Advance Directives + + + + + | Type | Date Recorded | Patient | Explanation | | | | Financial Aid Counselor | | + + + + + | Power of | | | | | Feeder Operator Automatic | | | | + + + + + | Advance | 05/28/2014 2:20 | | | | Directive | PM | | | + + + + +
--- OUTSIDE RECORDS SUMMARY | ~2019-03-02 | XMS | Clinical Summary ---
Demographics + + + | Address | [address] | | | [place] [address] | + + + | Home Phone | | + + + | Preferred Language | Unknown | + + + | Marital Status | | + + + | Muslim Affiliation | Unknown | + + + | Race | Unknown | + + + | Ethnic Group | Unknown | + + + Author + + + | Author | [facility] (Historical as of | | | 12-07-18) | + + + | Organization | [facility] (Historical as of | | | 12-07-18) | + + + | Address | Unknown | + + + | Phone | Unavailable | + + + Support + + +---------+ + | Name | Relationship | Address | Phone | + + +---------+ + | Shilpa Couch | ECON | Unknown | | + + +---------+ + Care Team Providers + +------+ + | Care Graduate Assistant Name | Role | Phone | [...] | + + + + + | DEXA SCAN SCREENING | | | | | | 5 | | | + + + + + | Vaccine: | | | | | Pneumococcal 65+ | 5 | | | | Low/Medium Risk (1 | | | | | of 2 - PCV13) | | | | + + + + + | Vaccine: Influenza | | | | | (#1) | 9 | | | + + + + + Results Not on filefrom Last 3 Months Insurance + +--------+ +------+-------+ + | Payer | Benefi | Subscriber | Type | Phone | Address | | | t Plan | ID | | | | | | / | | | | | | | Group | | | | | + +--------+ +------+-------+ + | MEDICARE | MEDICA | [id number] | | | [address] | | | RE | | | | [place] [phone] | | | IP-OP | | | | | + +--------+ +------+-------+ + | PREMERA | PREMER | [id number] | | | [address] [address] | | | A BLUE | | | | [place] | | | [place] | | | | [phone] | | | FED | | | | | | | PPO | | | | | + +--------+ +------+-------+ + + +--------+ +--------+ + + | Guarantor Name | Accoun | Relation to | Date | Phone | Billing Address | | | t Type | Patient | of | | | | | | | | | | + +--------+ +--------+ + + | ETELVINA AVILA | Person | Self [birth year] | Work: | [address] | | | al/Serjio | | 1951 | [phone] [place] [address] | | | christian | | | [phone]: | | | | | | | | | | | | | | [phone] | | | | | | [phone] | | + +--------+ +--------+ + +"
--- OUTSIDE RECORDS SUMMARY | ~2019-03-02 | XMS | Encounter Summary ---
Demographics + + + | Address | [address] | | | [place] [address] | + + + | Home Phone | | + + + | Preferred Language | Unknown | + + + | Marital Status | Single | + + + | Zoroastrianism Affiliation | Unknown | + + + | Race | White | + + + | Ethnic Group | Other Race | + + + Author + + + | Author | [facility] | + + + | Organization | [facility] | + + + | Address | Unknown | + + + | Phone | Unavailable | + + + Support + + +---------+ + | Name | Relationship | Address | Phone | + + +---------+ + | Karen Unknown | ECON | Unknown | | + + +---------+ + Care Team Providers + +------+ + | Care Drivability Technician Name | Role | Phone | + +------+ + | Margie Gonzalez PA-C | PCP | | + +------+ + Reason for Visit + + + | Reason | Comments | + + + | Medication changed | | + + + Encounter Details [...] | | | Lazara Infante Mailcode: | [place], [place] | | | | | [address] [place], [place] | [address] | | | | | | [phone] | | | | | [phone] | | | +--------+ + + + [...]
--- OUTSIDE RECORDS SUMMARY | ~2019-03-02 | XMS | Encounter Summary ---
Demographics + + + | Address | [address] | | | [place] [address] | + + + | Home Phone | | + + + | Preferred Language | Unknown | + + + | Marital Status | Single | + + + | Orthodoxy Affiliation | 1013 | + + + | Race | Unknown | + + + | Ethnic Group | Unknown | + + + Author + + + | Author | [facility] | | | and Dwayneana | + + + | Organization | [facility] | | | and Dwayneana [...] Team Providers + +------+ + | Care Special Effects Technician Name | Role | Phone | + +------+ + PCP | Unavailable | + +------+ + Encounter Details +--------+ + + + + | Date | Type | Department | Care Team | Description | +--------+ + + + + | 12/22/ | Hospital | [facility] | Conversion | Lumbosacral | | 2006 | Encounter | CONVERSION [address] | Transaction, | Spondylosis | | | | [address] | Provider Unknown | | | | | [place], [place] | [phone] | | | | | [address] | (Fax) | | | | | [phone] | | | +--------+ + + + [...] Diagnosis | + + | 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
--- OUTSIDE RECORDS SUMMARY | ~2019-03-02 | XMS | Encounter Summary ---
Demographics + + + | Address | [address] | | | [place] [address] | + + + | Home Phone | | + + + | Preferred Language | Unknown | + + + | Marital Status | Single | + + + | Advent Affiliation | 1013 | + + + | Race | Unknown | + + + | Ethnic Group | Unknown | + + + Author + + + | Author | [facility] | | | and Dwayneana | + + + | Organization | [facility] | | | and Dwayneana | [...] + +------+ + | Care Director Of Student Life Name | Role | Phone | + +------+ + | Matt Kinney MD | PCP | | + +------+ + Encounter Details +--------+ + + + + | Date | Type | Department | Care Team | Description | +--------+ + + + + | 08/17/ | Orders Only | [facility] | Nestor Nice | Bilateral carotid | | 2014 | | SURGERY [address] | MD [place], FACS [address] | artery disease (HCC) | | | | [place], [place] | [address] [place] | (Primary Dx) | | | | [address] | [place] [address] | | | | | [phone] | [phone] | | | | | | | [...] + | Diagnosis | + + | Bilateral carotid artery disease (HCC) - Primary Unspecified disorders of arteries | | and arterioles | + + documented in this encounter"
--- OUTSIDE RECORDS SUMMARY | ~2019-03-02 | XMS | Clinical Summary ---
Demographics + + + | Address | [address] | | | [place] [address] | + + + | Home Phone | | + + + | Preferred Language | Unknown | + + + | Marital Status | Single | + + + | Advent Affiliation | Unknown | + + + | Race | White | + + + | Ethnic Group | Other Race | + + + Author + + + | Author | [facility] | + + + | Organization | NON REVENUE LOCATIONS | + + + | Address | Unknown | + + + | Phone | Unavailable | + + + Support + + +---------+ + | Name | Relationship | Address | Phone | + + +---------+ + | Karen Unknown | ECON | Unknown | | + + +---------+ + Care Team Providers + +------+ + | Care Positive Printer Operator Name | Role | Phone | + +------+ + | Margie Gonzalez PA-C | PCP | | + +------+ + Source Comments KARINA is fully live on both [facility] and [facility] InPatient.[facility] Allergies + + + + + + | Active Allergy | Reactions | Severity | Noted | Comments | | | | | Date | | + + + + + + | Oxycodone | Pruritus | High | 07/22/19 | Oxycontin | | | [...] | + + + +---------+------+------+-------+ | metFORMIN 500 mg | Take 500 mg by mouth | | 0 | | | Activ | | oral tablet | two times daily. | | | | | e | + + + +---------+------+------+-------+ | losartan 50 mg | Take 50 mg by mouth | | 0 | 03/2 | | Activ | | oral tablet | once daily. hold for | | | 820 | | e | | | BPsys < 105 | | | 18 | | | + + + +---------+------+------+-------+ | levothyroxine 100 | Take 100 mcg by | | 0 | 05/1 | | Activ | | mcg oral tablet | mouth once daily. | | | 1/20 | | e | | | | | | 18 | | | + + + +---------+------+------+-------+ | omeprazole 20 mg | Take 20 mg by mouth | | 3 | 05/0 | | Activ | | oral capsule,delayed | once daily. | | | 10/10 | | e | | release(DR/EC) | | | | 19 | | | + + + +---------+------+------+-------+ | aspirin EC 81 mg | Take 1 tablet by | | 0 | 05/2 | | Activ | | oral tablet,delayed | mouth once daily. | | | 08/10 | | e | | release (DR/EC) | | | | 19 | | | + + + +---------+------+------+-------+ | carvedilol 12.5 mg | Take 1 tablet by | 60 | 11 | 05/2 | | Activ | | oral tablet | mouth two times | tablet | | 08/10 | | e | | | daily. Administer | | | 19 | | | | | with food. hold | | | | | | | | dose if BPs <105, HR | | | | | | | | <50 | | | | | | + + + +---------+------+------+-------+ | acetaminophen 500 | Take 500 mg by mouth | 100 | | 05/2 | | Activ | | mg oral tablet | every eight hours. | tablet | | 4/20 | | e | | | | | | 19 | | | + + + +---------+------+------+-------+ | melatonin 3 mg | Take by mouth once | 100 | | 05/2 | | Activ | | oral tablet | daily at bedtime as | tablet | | 4/20 | | e | | | needed. | | | 19 | | | + + + +---------+------+------+-------+ | lidocaine 5 % | Apply 1-2 patches to | 15 | 0 | 05/2 | | Activ | | topical adhesive | skin once daily as | patch | | 8/20 | | e | | patch,medicated | needed. Apply patch | | | 19 | | | | | to chest wall. On | | | | | | | | for 12 hours in any | | | | | | | | 24-hour period. | | | | | | + + + +---------+------+------+-------+ | DULoxetine 60 mg | Take 1 capsule by | | 0 | 05/2 | | Activ | | oral capsule,delayed | mouth once daily. | | | 8 | | e | | release(DR/EC) | | | | 19 | | | + + + +---------+------+------+-------+ | insulin lispro | Inject 2-6 Units | 5 mL | 1 | 05/2 | | Activ | | (HUMALOG U-100 | under the skin | | | 12/10 | | e | | INSULIN) 100 unit/mL | (SUBC) three times | | | 19 | | | | subcutaneous | daily as needed. CBG | | | | | | | solution | <200: 0 units; | | | | | | | | 200-260: 1U; | | | | | | | | 261-320: 2U; | | | | | | | | 321-380: 3U; | | | | | | | | 381-440: 4UCall | | | | | | | | provider if CBG | | | | | | | | >440Do NOT use | | | | | | | | sliding scale at HS. | | | | | | + + + +---------+------+------+-------+ | multivitamin oral | Take 1 tablet by | 100 | | 05/3 | | Activ | | tablet | mouth once daily. | tablet | | 0/20 | | e | | | | | | 19 | | | + + + +---------+------+------+-------+ | atorvastatin 10 mg | Take 1 tablet by | 30 | 0 | 05/3 | | Activ | | oral tablet | mouth once daily. | tablet | | 0/20 | | e | | | | | | 19 | | | + + + +---------+------+------+-------+ | insulin glargine | 16 Units by | 5 mL | 0 | 05/3 | | Activ | | U-300 conc (TOUJEO | Intramuscular/Subcut | | | 0/20 | | e | | SOLOSTAR U-300 | aneous route once | | | 19 | | | | INSULIN) 300 unit/mL | daily at bedtime. | | | | | | | (1.5 mL) | | | | | | | | subcutaneous insulin | | | | | | | | pen | | | | | | | + + + +---------+------+------+-------+ | DIETARY SUPPLEMENT | Take 120 mL by mouth | | 0 | | | Activ | | ORAL | two times daily. | | | | | e | + + + +---------+------+------+-------+ | insulin lispro | Inject 2 Units under | 10 mL | | | | Activ | | (HUMALOG U-100 | the skin (SUBC) | | | 08/10 | | e | | INSULIN) 100 unit/mL | three times daily | | | 19 | | | | subcutaneous | before meals. Give | | | | | | | solution | 10-15 min before | | | | | | | | eating. HOLD if | | | | | | | | patient NOT eating | | | | | | | | or CBG<120 | | | | | | + + + +---------+------+------+-------+ Active Problems + + + | Problem | Noted Date | + + + | Hepatic encephalopathy | 09/24/2018 | + + + | Acute metabolic encephalopathy | 09/24/2018 | + + + | Depression | 09/13/2018 | + + + | GERD (gastroesophageal reflux disease) | 09/13/2018 | + + + | Dysphagia | 09/13/2018 | + + + | Acquired hypothyroidism | 09/13/2018 | + + + | Risk for falls | 09/13/2018 | + + + | Peripheral vascular disease | 09/13/2018 | + + + | Neuropathy | 09/13/2018 | + + + | Hypertension | 07/08/2018 | + + + | Diabetes mellitus | 07/08/2018 | + + + | 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 | + + Social History + +-------+ +--------+------+ [...] + + + | Blood Pressure | 144/62 | 09/24/2018 10:45 AM | | | | | PDT | | + + + + + | Pulse | 66 | 09/24/2018 10:45 AM | | | | | PDT | | + + + + + | Temperature | 36.5 C (97.7 F) | 09/24/2018 10:45 AM | | | | | PDT | | + + + + + | Respiratory Rate | 16 | 09/24/2018 10:45 AM | | | | | PDT | | + + + + + | Oxygen Saturation | 98% | 09/17/2018 10:00 AM | | | | | PDT | | + + + + + | Inhaled Oxygen | - | - | | | Concentration | | | | + + + + + | Weight | 53.8 kg (118 lb 9.6 | 09/24/2018 10:45 AM | | | | oz) | [...] + + + + + | Pneumococcal | | | | | vaccination (1 of 2 | 5 | | | | - PCV13) | | | | + + + + + | Influenza (Flu) | | 01/24/2018, 02/14/2017, | | | vaccination (#1) | 9 | 03/11/2014, Additional history | | | | | exists | | + + + + + Results Not on filefrom Last 3 Months Insurance + +--------+ +--------+ + +--------+ | Payer | Benefi | Subscriber | Effect | Phone | Address | Type | | | t Plan | ID | efrain | | | | | | / | | Dates | | | | | | Group | | | | | | + +--------+ +--------+ + +--------+ | [place] | BLUE | xxxxxxxxx | | [phone] | [address] | PPO | | | CROSS | | 017-[address] | [address] | [id number] [address] | | | | [place] | | esent | | [place], | | | | L | | | | [place] [address] | | + +--------+ +--------+ + +--------+ | MEDICARE | MEDICA | xxxxxxxxxxx | 10/22/19 | [phone] | [address] | Medica | | | RE A & | | 15-Pre | 1 | [address] | [address] | | | B | | sent | | [place] | | | | | | | | [address] | | + +--------+ +--------+ + +--------+ + +--------+ +--------+ + + | Guarantor Name | Accoun | Relation to | Date | Phone | Billing Address | | | t Type | Patient | of | | | | | | | | | | + +--------+ +--------+ + + | Pulse,Deoborah K | Person | Self [birth year] | | [address] | | | al/Fam | | 1951 | [phone] | [address] [place], [place] | | | christian | | | 6 (Home) | [address] | | | | | | [phone] | | | | | | | 5 (Work) | | + +--------+ +--------+ + + | Judi Benitez | Antonieta | Self | [birth year] | | [address] | | | l | | 1951 | [phone] | [address] [place] | | | [place] | | | 6 (Home) | [address] | | | g | | | [phone] | | | | | | | 5 (Work) | | + +--------+ +--------+ + +"
--- OUTSIDE RECORDS SUMMARY | ~2019-03-02 | XMS | Encounter Summary ---
Demographics + + + | Address | [address] | | | [place] [address] | + + + | Home Phone | | + + + | Preferred Language | Unknown | + + + | Marital Status | Single | + + + | Latter Day Affiliation | 1013 | + + + | Race | Unknown | + + + | Ethnic Group | Unknown | + + + Author + + + | Author | [facility] | | | and Dwayneana | + + + | Organization | [facility] | [...] Team Providers + +------+ + | Care Oil Fire Specialist Name | Role | Phone | + [...] Provider Unknown | | | | | [place], [place] | [phone] | | | | | [phone] | (Fax) | | | | | [phone] | | | +--------+ + + + [...]
--- OUTSIDE RECORDS SUMMARY | ~2019-03-02 | XMS | Encounter Summary ---
Demographics + + + | Address | [address] | | | [place] [address] | + + + | Home Phone | | + + + | Preferred Language | Unknown | + + + | Marital Status | Single | + + + | Confucianism Affiliation | 1013 | + + + | Race | Unknown | + + + | Ethnic Group | Unknown | + + + Author + + + | Author | [facility] | | | and Dwayneana | + + + | Organization | [facility] | | | and [...] Team Providers + +------+ + | Care Assembled Wood Products Repairer Name | Role | Phone | + +------+ + | Margie Gonzalez | PCP | | + +------+ + Encounter Details +--------+---------+ + + + | Date | Type | Department | Care Team | Description | +--------+---------+ + + + | 09/04/ | Surgery | [facility] | ZackBubba bowden | CV [facility] | | 2018 | | MED CTR CV INTRA OP | MD Yimi [address] | | | | | [address] | [address] [place] | | | | | [place], [place] | [place] [address] | | | | | [address] | [phone] | | | | | [phone] | | | +--------+---------+ + + + [...]
--- OUTSIDE RECORDS SUMMARY | ~2019-03-02 | XMS | Encounter Summary ---
Demographics + + + | Address | [address] | | | [place] [address] | + + + | Home Phone [...] | Author | [facility] | | | and Dwayneana | + + + | Organization | [facility] | | | and [...] Team Providers + +------+ + | Care Project Manager Retail Name | Role | Phone | + +------+ + | Matt Kinney MD | PCP | | + +------+ + Reason for Visit + + + | Reason | Comments | + + + | Coronary Artery | three week follow-up | | Disease | | + + + | Hyperlipidemia | | + + + Encounter Details +--------+---------+ + + + | Date | Type | Department | Care Team | Description | +--------+---------+ + + + | 07/16/ | Office | [facility] | Bubba Maxwell | CAD (coronary artery | | 2014 | Visit | CARDIOLOGY [address] | MD [address] | disease) (Primary | | | | [place], | [address] [place] | Dx); Carotid artery | | | | [place] [address] | [place] [address] | disease (HCC); | | | | [phone] | [phone] | Tobacco use disorder | | | | | | | +--------+---------+ + + + [...] + + + | Blood Pressure | 100/58 | 07/16/2014 1:53 PM | | | | | PDT | | + + + + + | Pulse | 84 | 07/16/2014 1:53 PM | | | | | PDT | | + + + + + | Temperature | - | - | | + + + + + | Respiratory Rate | 16 | 07/16/2014 1:53 PM | | | | | PDT | | + + + + + | Oxygen Saturation | - | - | | + + + + + | Inhaled Oxygen | - | - | | | Concentration | | | | + + + + + | Weight | 68 kg (150 lb) | 07/16/2014 1:53 PM | | | | | PDT | | + + + + + | Height | 165.1 cm (5' 5") | 07/16/2014 1:53 PM | | | | | PDT | | + + + + + | Body Mass Index | 24.96 | 07/16/2014 1:53 PM | | | | | PDT | | + + + + + documented in this encounter Patient Instructions Patient Instructions Erika Blancas RN - 07/16/2014 2:37 PM PDT1. Heart cath soon 2. Carotid artery ultrasound 3. Follow up with Dr Maxwell in 1-2 monthsElectronically signed by Erika Blancas RN at 2:37 PM PDT documented in this encounter Progress Notes Bubba Maxwell MD - 07/16/2014 2:00 PM PDTFormatting of this note might be differe nt from the original. PATIENT NAME: Etelvina Benitez : 1950: AGE: 63 y.o. REFERRED BY: Matt Kinney PRIMARY CARE: Matt Knapp NEW PATIENT OFFICE VISIT Date of Service: 07/16/2014 HISTORY OF PRESENT ILLNESS: Etelvina Benitez is a 63 y.o. female with a history of established carotid artery disease and coronary disease risk factors of borderline age, uncontrolled diabetes, hyperlipidemia, and ongoing tobacco use here for a follow-up visit. She recently underwent stress perfusion imaging study and echocardiography. Previously she had presented for further consultation prior to undergoing possible neurosurgery for chronic neck and back pain with Dr. Knapp. Mansoor gutierrez apparently experienced an episode of transient hypotension perioperatively during the course of prior shoulder surgery resulting in its cancellation. She did undergo colonoscop y without any difficulty subsequently. Otherwise she has not had any problems of lightheade dness, dizziness or documented hypotension but does chronically experience systolic blood pr essures on the lower edge of normal readings. She is minimally active and does not engage in any regular exercise. She has not had any c lear-cut chest pain. She admits to very poor diabetic control as well as heavy tobacco use at least one and a half packs per day for many years, never having successfully quit in the past. She denies any known history of myocardial infarction, coronary artery disease, or heart fa ilure. CURRENT PROBLEMS Patient Active Problem List Diagnosis Abnormal heart rate Poor circulation Hyperlipidemia Neuropathy Thyroid disease Depression GERD (gastroesophageal reflux disease) Diabetes mellitus Migraine Seizure DDD (degenerative disc disease), cervical MEDICAL, SURGICAL, AND PERSONAL HISTORY Past Surgical History Procedure Laterality Date Lymph node biopsy 1971 [place] Hysterectomy 1975 [place] Rotator cuff repair Right shoulder Tonsillectomy 1987 Uvulopalatopharygoplasty 1988 Nasal sinus surgery 1988 Family History Problem Relation Age of Onset Mental illness Mother Heart disease Father Diabetes Sister Family Status Relation Status Age Mother Father heart disease Sister Alive DM1 History Social History Marital Status: Single Spouse Name: N/A Number of Children: 1 Years of Education: N/A 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 Social History Main Topics Smoking status: Current Every Day Smoker -- 1.50 packs/day for 37 years Smokeless tobacco: Never Used Alcohol Use: No Drug Use: No Comment: "pot in the past" Sexual Activity: No Other Topics Concern None Social History [...] TWO C APSULES EVERY NIGHT AT BEDTIME (Patient taking differently: TAKE ONE CAPSULE BY MOUTH EVERY MORNING) 90 capsule 1 insulin lispro protamine-insulin lispro [...] Allergen Reactions Oxycodone Itching Oxycontin intolarant: Oxycodone tolerant ROS Review of Systems Constitutional: Negative for fever, chills, weight loss, malaise/fatigue and diaphoresis. HENT: Negative for ear discharge, hearing loss, nosebleeds and tinnitus. Eyes: Positive for blurred vision. Negative for double vision. Respiratory: Negative for cough and shortness of breath. Cardiovascular: Negative for chest pain, palpitations, claudication and leg swelling. Gastrointestinal: Negative for heartburn, nausea, vomiting, abdominal pain, diarrhea, const ipation and blood in stool. Genitourinary: Negative for dysuria, urgency, frequency and hematuria. Musculoskeletal: Positive for myalgias, back pain, joint pain and neck pain. Skin: Negative for itching and rash. Neurological: Positive for tremors. Negative for dizziness, tingling, speech change, seizur es, loss of consciousness, weakness and headaches. Endo/Heme/Allergies: Does not bruise/bleed easily. Psychiatric/Behavioral: The patient is not nervous/anxious and does not have insomnia. OBJECTIVE: PHYSICAL EXAM BP 100/58 | Pulse 84 | Resp 16 | Ht 1.651 m (5' 5") | Wt 68.04 kg (150 lb) | BMI 24.96 kg/m2 Physical Exam Constitutional: She is oriented to person, place, and time. She appears well-developed and well-nourished. HENT: Head: Normocephalic. Eyes: No scleral icterus. Neck: Normal carotid pulses and no JVD present. Carotid bruit is not present. Cardiovascular: Normal rate, regular rhythm, S1 normal, S2 normal, normal heart sounds, int act distal pulses and normal pulses. PMI is not displaced. Exam reveals no gallop and no m idsystolic click. No murmur heard. Pulses: Carotid pulses are 2+ on the right side, and 2+ on the left side. Femoral pulses are 2+ on the right side, and 2+ on the left side. Dorsalis pedis pulses are 2+ on the right side, and 2+ on the left side. Posterior tibial pulses are 2+ on the right side, [...] 06/11/2014 TRIGEX 177 06/11/2014 CHOLEX 195 06/11/2014 LDL 115 Direct LDL 147 CHEMISTRY Lab Results Component Value Date GLUEX 230 06/11/2014 NAEX 141 06/11/2014 KEX 4.0 06/11/2014 ASTEX 17 06/11/2014 ALTEX 18 06/11/2014 EGFREX 63 06/11/2014 CREEX 0.90 06/11/2014 HEMATOLOGY Lab Results Component Value Date WBCEX 8.6 06/11/2014 HGBEX 15.7 06/11/2014 HCTEX 46.4 06/11/2014 PLTEX 227 06/11/2014 HbA1c 11.2, EAG 275 Nuclear stress perfusion imaging study June 2014 interpreted and reviewed by me notable fo r LVEF 45%, moderate to large sized predominantly reversible lateral perfusion defect as wel l as a small reversible distal anterior perfusion defect. Echocardiogram June 2014 interpreted and reviewed by me LVEF 45%, mild mitral and tricuspi d insufficiency, normal pulmonary pressures. I reviewed records from PCP for office visit on 06/10/14. In addition, consultation from neurosurgery 05/28/14 was reviewed as well. ASSESSMENT: 1. Preoperative assessment/CAD - patient has coronary disease risk factors of uncontrolled diabetes, dyslipidemia, and ongoing and significant tobacco use in addition to borderline a ge. In addition, she has established vascular disease. She had a markedly abnormal stress perfusion imaging study suggestive of underlying multivessel CAD. She would benefit from de finitive coronary evaluation including left heart catheterization and coronary angiography. Patient understands the indications for the procedure as well as relevant risks and benefit s and agrees to proceed. 2. Hyperlipidemia - her target LDL should be less than 70 mg/dL given her established car otid disease. It is unclear why repeat direct LDL measurement demonstrates such significant increase while the patient describes compliance with fairly robust dose of atorvastatin. I have asked her to increase this to 80 mg daily, or, ideally, if feasible, to convert to Cre stor at 40 mg daily. 3. Diabetes mellitus - patient exhibits markedly poor control and will likely benefit from consideration of consultation with an siding mechanic if feasible. Patient also would bene fit from further dietary education - she describes poor dietary choices including frequent indulgence and ice cream and white bread. We discussed concept of glycemic index which woul d benefit from future reinforcement. 3. Tobacco cessation - this was discussed at length (> 10 minutes) - especially given her multiple coronary [...] consultation re: potential of und erlying COPD. PLAN: 1. Left heart catheterization and coronary angiography. 2. Carotid duplex ultrasound examination. 3. Tobacco cessation. 4. Increase statin potency. 5. Improved diabetic control. Recommend endocrinology consultation. 6. Consider future consultation with pulmonology regarding likely underlying COPD. 7. Follow-up visit in a few weeks. Portions of this report were transcribed using voice recognition software. Every effort wa s made to ensure accuracy; however, inadvertent computerized college president errors may be pre sent. Electronically signed by: Rafael Maxwell MD PhD FACC 07/16/2014 documented in t his encounter Plan of Treatment Not on filedocumented as of this encounter Results VAS Carotid Duplex Bilateral (08/04/2014 1:47 PM PDT) + + | Specimen | + + | | + + + + + | Narrative | Performed At | + + + | BILATERAL DUPLEX CAROTID ULTRASOUND 08/04/2014 1:00 PM CLINICAL | [facility] | | HISTORY: carotid artery disease, history of endarterectomy | [facility] | | COMPARISON: CAROTID ULTRASOUND MARCH 2011 [...] [address] | [place] | [phone] | | [facility] | | [address] | | | - IMAGING | | | | + + + + + CV Adult Cardiac Cath Diag/PCI (07/28/2014 9:31 [...] RECORD NUMBER: | MEDICAL CENTER | | [id number] DATE OF PROCEDURE: 07/28/2014 PHYTOPATHOLOGIST: | - IMAGING | | Bubba Maxwell MD, PhD, [facility] PROCEDURES | | | PERFORMED: [...] [address] | [place] | [phone] | | [facility] | | [address] | | | - IMAGING | | | | + + + + + documented in this encounter Visit Diagnoses + + | Diagnosis | + + | CAD (coronary artery disease) - Primary Coronary atherosclerosis of unspecified type | | of vessel, takotna or graft | + + | Carotid artery disease (HCC) Unspecified disorders of arteries and arterioles | + + | Tobacco use disorder | + + documented in this encounter
--- OUTSIDE RECORDS SUMMARY | ~2019-03-02 | XMS | Encounter Summary ---
Demographics + + + | Address | [address] | | | [place] [address] | + + + | Home Phone | | + + + | Preferred Language | Unknown | + + + | Marital Status | Single | + + + | Christianity Affiliation | Unknown | + + + [...] Team Providers + +------+ + | Care Motor Man Name | Role | Phone | [...]
--- OUTSIDE RECORDS SUMMARY | ~2019-03-02 | XMS | Encounter Summary ---
Demographics + + + | Address | [address] | | | [place] [address] | + + + | Home Phone | | + + + | Preferred Language | Unknown | + + + | Marital Status | Single | + + + | Baptist Affiliation | 1013 | + + + | Race | Unknown | + + + | Ethnic Group | Unknown | + + + Author + + + | Author | [facility] | | | and Dwayneana | + + + | Organization | [facility] | | | and [place]wayneana | [...] Providers + +------+ + | Care Front Worker Name | Role | Phone | + +------+ + | Margie Gonzalez | PCP | | + +------+ + Reason for Visit +--------+ + | Reason | Comments | +--------+ + | Other | procedure needs to be rescheduled | +--------+ + Encounter Details +--------+ + + + + | Date | Type | Department | Care Team | Description | +--------+ + + + + | 08/28/ | Telephone | [facility] | Bubba Maxwell | Other (procedure | | 2017 | | CARDIOLOGY [address] | MD [address] | needs to be | | | | [place], | [address] [place] | rescheduled) | | | | [place] [address] | [place] [address] | | | | | [phone] | [phone] | | | | | | | [...]
--- OUTSIDE RECORDS SUMMARY | ~2019-03-02 | XMS | Encounter Summary ---
Demographics + + + | Address | [address] | | | [place] [address] | + + + | Home Phone [...] [facility] | | | and [place]neana | + + + | Organization | [facility] [...] Providers + +------+ + | Care Motor Runner Name | Role | Phone | + +------+ + | Margie Gonzalez | PCP | | + +------+ + Reason for Visit +--------+ + | Reason | Comments | +--------+ + | Other | concern about going to [place] | +--------+ + Encounter Details +--------+ + + + + | Date | Type | Department | Care Team | Description | +--------+ + + + + | 02/28/ | Telephone | [facility] | Bubba Maxwell | Other (concern about | | 2017 | | [address] | MD [address] | going to [place]) | | | | [place], | [address] [place] | | | | | [place] [address] | [place] [address] | | | | | [phone] | [phone] | | | | | | | [...]
--- OUTSIDE RECORDS SUMMARY | ~2019-03-02 | XMS | Encounter Summary ---
Demographics + + + | Address | [address] | | | [place] [address] | + + + | Home Phone [...] + | Author | [facility] | | | and Dwayneana | + + + | Organization | [facility] | | | and [place]wayneana | [...] Team Providers + +------+ + | Care Medical Science Liaison Name | Role | Phone | + [...] + + + + | 10/10/ | Telephone | [facility] | Bubba Maxwell | Other | | 2018 | | [address] | MD [address] | | | | | [place], | [address] [place] | | | | | [place] [address] | [place] [address] | | | | | [phone] | [phone] | | | | | | | [...]
--- OUTSIDE RECORDS SUMMARY | ~2019-03-02 | XMS | Encounter Summary ---
Demographics + + + | Address | [address] | | | [place] [address] | + + + | Home Phone | | + + + | Preferred Language | Unknown | + + + | Marital Status | Single | + + + | Voodoo Affiliation | Unknown | + + + [...] Team Providers + +------+ + | Care Marker Machine Name | Role | Phone | + [...]
--- OUTSIDE RECORDS SUMMARY | ~2019-03-02 | XMS | Encounter Summary ---
Demographics + + + | Address | [address] | | | [place] [address] | + + + | Home Phone [...] Providers + +------+ + | Care Field Crew Chief Name | Role | Phone | + [...]
--- OUTSIDE RECORDS SUMMARY | ~2019-03-02 | XMS | Encounter Summary ---
Demographics + + + | Address | [address] | | | [place] [address] | + + + | Home Phone [...] Author | [facility] | | | and Dwayneana | + + + | Organization | [facility] | | | and Dwayneana [...] Team Providers + +------+ + | Care Drawer In Hand Name | Role | Phone | [...] + + | 06/13/ | Telephone | [facility] [place] | Bubba Maxwell | LABS | | 2019 | | CARDIOLOGY [address] | MD [address] | | | | | [place], | [address] [place] | | | | | [place] [address] | [place] [address] | | | | | [phone] | [phone] | | | | | | | [...]
--- OUTSIDE RECORDS SUMMARY | ~2019-03-02 | XMS | Encounter Summary ---
Demographics + + + | Address | [address] | | | [place] [address] | + + + | Home Phone | | + + + | Preferred Language | Unknown | + + + | Marital Status | Single | + + + | Quaker Affiliation | 1013 | + + + | Race | Unknown | + + + | Ethnic Group | Unknown | + + + Author + + + | Author | [facility] | | | and [place]wayneana | + + + | Organization | [facility] | | | [...] Team Providers + +------+ + | Care Care Transitions Manager Name | Role | Phone | + +------+ + | Margie Gonzalez | PCP | | + +------+ + Reason for Referral Evaluate & Treat (Routine) + + + [...] | | Mitral valve | [address] | [address] | | | | | | St [place] | [place] | | | | | insufficienc | [place], [place] | [place], [place] | | | | | y, | [address] | [address] | | | | | unspecified | Phone: | Phone: | | | | | etiology | [phone] | [phone] | | | | | Essential | Fax: | Fax: | | | | | hypertension | [phone] | [phone] | | | | | Poor | [...] + + + + + + + Diagnostic/Screening (Routine) [...] Heart valve | Bubba | [address] | | | | | replaced | MD Yimi | [place], | | | | | Mitral valve | [address] | [place] | | | | | | St [place] | [address] | | | | | insufficienc | [place], [place] | Phone: | | | | | y, | [address] | [phone] | | | | | unspecified | Phone: | Fax: | | | | | etiology | [phone] | [phone] | | | | | Essential | Fax: | | | | | | hypertension | [phone] | | | | | | Poor [...] + + | 10/14/ | Office | [facility] | Bubba Maxwell | Heart valve replaced | | 2019 | Visit | CARDIOLOGY [address] | MD [address] | (Primary Dx); | | | | [place], | [address] [place] | Mitral valve | | | | [place] [address] | [place] [address] | insufficiency, | | | | [phone] | [phone] | unspecified | | | | | [...] whether | | | | | | rodent exterminator insulin | | | | | | use ([facility]) | +--------+---------+ + + + Social History [...] months with Echo on same day Provider: Dilcia Maxwell MD Date: Check-In Time: documented in this encounter Progress Notes Bubba Maxwell MD - 10/14/2018 2:00 PM PDTFormatting of this note might be differe nt from the original. PATIENT NAME: Etelvina Benitez : 1950: AGE: 67 y.o. REFERRED BY: Referral SelfMD PRIMARY CARE: JACK Faustin Dr. CARDIOLOGY OFFICE VISIT Date of Service: 10/14/18 HISTORY OF PRESENT ILLNESS: Etelvina Benitez is a 67 y.o. female with a history of established carotid artery disease, multivessel CAD, poorly controlled diabetes, hyperlipidemia, severe mitral insufficiency, a nd tobacco use here for a follow-up visit. She presents with her [id number] Shilpa. Since our last visit, she underwent transesophageal echocardiography which confirmed severe MR. thereafter he was referred to [facility] in [place], where she underwent m itral valve replacement [...] returned for follow-up visit and moved to [place], having only ret urned recently. She ended up undergoing cervical fusion surgery in [place] and did not brown ve any further [...] CV LHC; Surgeon: Bubba Maxwell MD; Location: [facility] CV LAB CARDIAC CATHERIZATION N/A 11/13/2017 Procedure: CV LHC; Surgeon: Bubba Maxwell MD; Location: [facility] CV LAB CORONARY ARTERY BYPASS GRAFT 09/03/2018 Boby Bernard MD HYSTERECTOMY 1976 [place] LYMPH NODE BIOPSY 1971 [place] MITRAL VALVE REPLACEMENT 09/03/2018 NASAL SINUS SURGERY 1988 OTHER SURGICAL HISTORY Left 07/28/2014 Procedure: LEFT HEART CATH; Surgeon: Bubba Maxwell MD; Location: [facility] CARDIO VASC ULAR LAB ROTATOR [...] - 09/03/[address] Boby Terry - [facility] for saphenous vein graft to RCA. Will mitral valve repair not feasible due to heavily ca lcific mitral leaflets. ASSESSMENT: 1. CAD - patient was shown to have three-vessel CAD as detailed above on her angiogram in 2015 and this appears to be relatively unchanged on her recent angiogram. Preoperatively, s hair appears to have had a single vein [...] efit from consideration of consultation with an children's ministry director if feasible. Patient also w ould benefit from further dietary education - she describes poor dietary choices including frequent indulgence and ice cream and white bread. We had previously discussed concept of g lycemic index which would benefit from future reinforcement. 3. Tobacco cessation - patient states that she is no longer smoking since discharge from [facility] and I have congratulated her [...] made to ensure accuracy; however, inadvertent computerized hat braider errors may be pre sent. 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
--- OUTSIDE RECORDS SUMMARY | ~2019-03-02 | XMS | Encounter Summary ---
Demographics + + + | Address | [address] | | | [place] [address] | + + + | Home Phone [...] Author + + + | Author | [facility] | | | and Dwayneana | + + + | Organization | [facility] | [...] Team Providers + +------+ + | Care Blood Coordinator Name | Role | Phone | [...] | | | | | | | CAD, CHF | | | | | | | Procedures | | | | | | | CV LHC | | | +--------+--------+ + + + + Encounter Details +--------+ + + + + | Date | Type | Department | Care Team | Description | +--------+ + + + + | 08/28/ | Hospital | [facility] | Bubba Maxwell | | | 2017 | Encounter | MED CTR OR PRE OP | MD Yimi [address] | | | | | [address] [place] | [facility] | | | | | [place] [address] | [place] [address] | | | | | [phone] | [phone] | | | | | | | [...] + + + | Blood Pressure | 170/83 | 08/28/2017 8:16 AM | | | | | PDT | | + + + + + | Pulse | 83 | 08/28/2017 8:16 AM | | | | | PDT | | + + + + + | Temperature | 36.6 C (97.9 F) | 08/28/2017 8:16 AM | | | | | PDT | | + + + + + | Respiratory Rate | 16 | 08/28/2017 8:16 AM | | | | | PDT | | + + + + + | Oxygen Saturation | 98% | 08/28/2017 8:16 AM | | | | | PDT | | + + + + + | Inhaled Oxygen | - | - | | | Concentration | | | | + + + + + | Weight | 56.3 kg (124 lb 1.9 | 08/28/2017 8:16 AM | | | | oz) | PDT | | + + + + + | Height | 165.1 cm (5' 5") | 08/28/2017 8:16 AM | | | | | PDT | | + + + + + | Body Mass Index | 20.65 | 08/28/2017 8:16 AM | | | | | PDT [...] + + + +---------+ + + | CALCIUM-VITAMIN D | Take 1 tablet by | | 0 | | | | PO | mouth 2 times daily. | | | | 8 | + [...] of this encounter Plan of Treatment + + +--------+ + + | Name | Type | Priori | Associated Diagnoses | Date/Time | | | | ty | | | + + +--------+ + + | CV Cardiac Procedure | Cardiac | Routin | | 08/29/2017 7:47 AM | | | Cath | e | | PDT | + + +--------+ + + | CV Incomplete | Cardiac | Routin | | 08/29/2017 7:47 AM | | Procedure | Cath | e | | PDT | + + +--------+ + + documented as of this encounter Visit Diagnoses Not on filedocumented in this encounter Administered Medications + +--------+---------+------+------+------+ | Medication Order | MAR | Action | Dose | Rate | Site | | | Action | Date | | | | + +--------+---------+------+------+------+ + +---+ | sodium chloride 0.9% (NS) | | | infusion at 125 mL/hr, | | | Intravenous, CONTINUOUS, Starting | | | 08/28/17 at 0845, For | | | procedure only, not to exceed 1 | | | liter., Pre-op | | + +---+ | | | + +---+ documented in this encounter
--- OUTSIDE RECORDS SUMMARY | ~2019-03-02 | XMS | Encounter Summary ---
Demographics + + + | Address | [address] | | | [place] [address] | + + + | Home Phone | | + + + | Preferred Language | Unknown | + + + | Marital Status | Single | + + + | Church Affiliation | 1013 | + + + | Race | Unknown | + + + | Ethnic Group | Unknown | + + + Author + + + | Author | [facility] | | | and Dwayneana | + + + | Organization | [facility] | | | and [...] Team Providers + +------+ + | Care Dry Charge Process Attendant Name | Role | Phone | + [...] | | Mitral valve | [address] | [address] | | | | | | St [place] | [address] [place] | | | | | insufficienc | [place], [place] | [place], [place] | | | | | y, | [address] | [address] | | | | | unspecified | Phone: | Phone: | | | | | etiology | [phone] | [phone] | | | | | Essential | Fax: | Fax: | | | | | hypertension | [phone] | [phone] | | | | | Poor | [...] + + | 10/29/ | Office | [facility] | Bubba Maxwell | Heart valve | | 2019 | Visit | MED CTR CARDIAC | MD Yimi [address] | replaced; Mitral | | | | REHABILITATION [address] [place] | valve insufficiency, | | | | [address] [place] | [place] [address] | unspecified | | | | [place] [address] | [phone] | etiology | | | | [phone] | | | | | | | [...] Whitten RN - 10/29/2018 11:30 AM PDT [facility] MED CTR CARDIAC REHABILITATION [address] [place] [address] Cardiac Rehab Evaluation Date: 10/29/2018 Patient Information [...] to return back to work in at [employer]. Her appetite is poor. She will be seeing a shoemaking cutter. She continues to abstain from cigaret te smoking. She has been feeling really well for the past few days. She lives in [place] and prefers not to commute to [place]. Cardiac Rehab Phase II Eric atment Plan Exercise: She is walking without any adverse symptoms. She did recently fall and has sore r ibs and knee, but was checked out by a physician Nutrition: Rate Your Plate score is: 42, she has a very poor appetite and likes sugar. She will consult a shoemaking cutter. Education: Received 1:1 education regarding CAD, medications, [...] her and are suppo rtive. Plan: See shoemaking cutter. Continue to increase walking gradually. Continue smoking [...]
--- OUTSIDE RECORDS SUMMARY | ~2019-03-02 | XMS | Encounter Summary ---
Demographics + + + | Address | [address] | | | [place] [address] | + + + | Home Phone | | + + + | Preferred Language | Unknown | + + + | Marital Status | Single | + + + | Yarsanism Affiliation | Unknown | + + + [...] Team Providers + +------+ + | Care Barrel And Receiver Aligner Name | Role | Phone | + +------+ + | Margie Gonzalez PA-C PCP | | + +------+ + Encounter Details +--------+--------+ + + + | Date | Type | Department | Care Team | Description | +--------+--------+ + + + | 09/24/ | Travel | | | | | [...]
--- OUTSIDE RECORDS SUMMARY | ~2019-03-02 | XMS | Encounter Summary ---
Demographics + + + | Address | [address] | | | [place] [address] | + + + | Home Phone [...] + | Author | [facility] | | | and Dwayneana | + + + | Organization | [facility] | | | and Dwayneana [...] Team Providers + +------+ + | Care Refuse Collector Supervisor Name | Role | Phone | [...] Pre-op exam | Bubba | [address] | | | | | CAD | MD Yimi | [place], | | | | | (coronary | [address] | [place] | | | | | artery | St [place] | [address] | | | | | disease) | [place], [place] | Phone: | | | | | Procedures | [address] | [phone] | | | | | ECHO | Phone: | Fax: | | | | | Complete [place] | [phone] | [phone] | | | | | ECHO HEART | Fax: | | | | | | [place] | [phone] | | | | | | MPLETE W | | | | | | | DOPPLER [place] | | | | | | | ECHO HEART | | | | | | | [place] | | | | | | | MPLETE, W/O | | | | | | | DOPPLER | | | +--------+--------+ + + + + Diagnostic/Screening [...] atherosclero | MD Yimi | [address] | | | | | sis of | [address] | [place], | | | | | unspecified | St [place] | [place] | | | | | type of | [place] | [address] | | | | | vessel, | [address] | Phone: | | | | | [place] | Phone: | [phone] | | | | | graft | [phone] | Fax: | | | | | Preoperative | Fax: | [phone] | | | | | | [phone] | | | | | | examination, [...] | | | | | | STUDIES ND | | | | | | | CV STRS TST | | | | | | | XERS&/OR RX | | | | | | | CONT ECG W/O | | | | | | | I&R ND | | | | | | | CARDIAC | | | | | | | STRESS | | | | | | | TST,INTERP/R | | | | | | | EPT ONLY | | | +--------+--------+ + + + + Reason for Visit + + + | Reason | Comments | + + + | Pre-op Exam | Initial Consultation | + + + Evaluate & Treat [...] | [address] | [address] | | | | | stenosis of | [place], [place] | [facility] | | | | | spinal canal | [address] | [facility] [place] | | | | | [place] | Phone: | [phone] Phone: | | | | | stenosis of | [phone] | [phone] | | | | | cervical | Fax: | Fax: | | | | | region | [phone] | [phone] | | | | | Cervical | | | | | | | radicular | | | | | | | pain | | | | | | | Cervicalgia | | | +--------+ + + + + + Encounter Details +--------+---------+ + + + | Date | Type | Department | Care Team | Description | +--------+---------+ + + + | 06/24/ | Office | [facility] | Bubba Maxwell | Pre-op exam (Primary | | 2014 | Visit | CARDIOLOGY [address] | MD Yimi [address] | Dx); CAD (coronary | | | | [address] [place], | [address] [place] | artery disease); | | | | [place] [address] | [place] [address] | Tobacco use disorder | | | | [phone] | [phone] | | | | | | | [...] + + + | Blood Pressure | 98/62 | 06/24/2014 2:23 PM | 100/66, RA | | | | PST | | + + + + + | Pulse | 90 | 06/24/2014 2:23 PM | regular | | | | PST | | + + + + + | Temperature | - | - | | + + + + + | Respiratory Rate | 16 | 06/24/2014 2:23 PM | | | | | PST | | + + + + + | Oxygen Saturation | - | - | | + + + + + | Inhaled Oxygen | - | - | | | Concentration | | | | + + + + + | Weight | 68.9 kg (152 lb) | 06/24/2014 2:23 PM | | | | | PST | | + + + + + | Height | 165.1 cm (5' 5") | 06/24/2014 2:23 PM | | | | | PST | | + + + + + | Body Mass Index | 25.29 | 06/24/2014 2:23 PM | | | | | PST | | + + + + + documented in this encounter Patient Instructions Patient Instructions Erika Blancas RN - 06/24/2014 3:11 PM PST1. Echo and Stress test soon 2. Follow up in 3-4 weeks P M PST documented in this encounter Progress Notes Bubba Maxwell MD - 06/24/2014 2:28 PM PSTFormatting of this note might be differe nt from the original. PATIENT NAME: Etelvina Benitez : 1950: AGE: 63 y.o. REFERRED BY: Matt Kinney PRIMARY CARE: Matt Knapp NEW PATIENT OFFICE VISIT Date of Service: 06/24/2014 HISTORY OF PRESENT ILLNESS: Etelvina Benitez is a 63 y.o. female with a history of established carotid artery disease and coronary disease risk factors of borderline age, uncontrolled diabetes, hyperlipidemia, and ongoing tobacco use here for further consultation prior to undergoing possible neurosurg anshul for chronic neck and back pain with Dr. Knapp. Patient apparently experienced an episo de of transient hypotension perioperatively during the course of prior shoulder surgery resu lting in its cancellation. She did undergo colonoscopy without any difficulty subsequently. Otherwise she has not had any problems of lightheadedness, dizziness or documented hypoten ashley but does chronically experience systolic blood pressures on the lower edge of normal re adings. She is minimally active and does not [...] Procedure Laterality Date Lymph node biopsy 1971 [place] Hysterectomy 1975 [place] Rotator cuff repair Right shoulder Tonsillectomy 1987 Uvulopalatopharygoplasty 1987 Nasal sinus surgery 1987 Family History Problem Relation Age of [...] not have insomnia. OBJECTIVE: PHYSICAL EXAM BP 98/62 | Pulse 90 | Resp 16 | Ht 1.651 m (5' 5") | Wt 68.947 kg (152 lb) | BMI 25.29 kg/m2 Physical Exam Constitutional: She is oriented [...] 177 06/11/2014 CHOLEX 195 06/11/2014 LDL 115 CHEMISTRY Lab Results Component Value Date GLUEX 230 06/11/2014 NAEX 141 06/11/2014 KEX 4.0 06/11/2014 ASTEX 17 06/11/2014 ALTEX 18 06/11/2014 EGFREX 63 06/11/2014 CREEX 0.90 06/11/2014 HEMATOLOGY Lab Results Component Value Date WBCEX 8.6 06/11/2014 HGBEX 15.7 06/11/2014 HCTEX 46.4 06/11/2014 PLTEX 227 06/11/2014 HbA1c 11.2, EAG 275 I reviewed records from PCP for office visit on 06/10/14. In addition, consultation from neurosurgery 05/28/14 was reviewed as well. ASSESSMENT: 1. Preoperative assessment/CAD - patient has coronary disease risk factors of uncontrolled diabetes, dyslipidemia, and ongoing and significant tobacco use in addition to borderline a ge. In addition, she has established vascular disease and was certainly benefit from preope rative risk stratification via a myocardial stress perfusion imaging study. I would have a low threshold to proceed with invasive workup if any abnormalities are detected. In terms of risk factor reduction, her target LDL should be less than 70 mg/dL given her es tablished carotid disease. We also discussed the importance of at least minimizing tobacco if not completely quitting, and optimizing diabetic control prior to surgery to minimize ris k of associated infections and other complications. Given patient's history of low systolic pressures and previous transient perioperative hypotension, perioperative beta taurus ther apy will not be recommended. Previous history of transient hypotension may have been relate d to patient's established carotid disease and mild baroreflex dysfunction. Adequate preope rative hydration should prove helpful. 2. Diabetes mellitus - patient exhibits markedly poor control and will likely benefit from consideration of consultation with an ornithology teacher if feasible. 3. Tobacco cessation - this was discussed at length (> 10 minutes) - especially given her multiple coronary disease risk factors, established vascular disease, an upcoming potential of surgery. Patient is hopeful to at least be able to cut back preoperatively. 4. Carotid artery disease - patient will benefit from future noninvasive evaluation given her history of previous endarterectomy. 5. Pulmonary - given patient's history of heavy tobacco use, she may benefit from consider ation of pulmonary function testing and possible pulmonary consultation re: potential of und erlying COPD. PLAN: 1. Stress perfusion imaging study. 2. Echocardiography. 3. Tobacco cessation. 4. Check direct LDL. 5. Improved diabetic control. Recommend endocrinology consultation. 6. Consider future consultation with pulmonology regarding likely underlying COPD. 7. Follow-up visit in a few weeks. 8. Carotid ultrasound examination in the future. Portions of this report were transcribed using voice recognition software. Every effort wa s made to ensure accuracy; however, inadvertent computerized fourth mate errors may be pre sent. Electronically signed by: Rafael Maxwell MD PhD FACC 06/24/2014 documented in this encounter Plan of Treatment + +------+--------+ + + | Name | Type | Priori | Associated Diagnoses | Order Schedule | | | | ty | | | + +------+--------+ + + | ECG 12 lead | ECG | Routin | Pre-op exam | Ordered: 06/24/2014 | | | | e | | | + +------+--------+ + + documented as of this encounter Results NM Nuclear Stress Test [...] | Signed by: Rafael Maxwell MD PhD [facility] 07/15/2014, 12:40 | | + + + + + + | Narrative | Performed At | + + + | NUCLEAR MEDICINE STRESS TEST REPORT | [facility] | | Patient Name: Etelvina Benitez Study Date: 07/15/2014 Primary | [facility] | | Care Provider: Matt Kinney : | [facility] | | 1950 Age: 63 y.o. Gender: [...] + | [facility] | [address] | [place] | [phone] | | [facility] | | [address] | | | - IMAGING | | | | + + + + + ECHO Complete (07/15/2014 12:20 PM PDT) + + | Specimen | + + | | + + + + + | Narrative | Performed At | + + + | [facility] ECHOCARDIOGRAM REPORT | [place] | | STUDY DATE: 07/15/2014 PATIENT NAME: Etelvina Benitez : | [facility] | | 1950 PCP: Matt Kinney CLINICAL [facility] | | HISTORY/DIAGNOSIS: CAD, preop evaluation A [...] PhD FACC | | | 07/15/2014 12:21 Electric Power Line Examiner: David Dudley RDMS | | + + + + + + + + | Performing | Address | City/State/Zipcode | Phone Number | | Organization | | | | + + + + + | [facility] | [address] | [place] | [phone] | | [facility] | | [address] | | | - IMAGING | | | | + + + + + documented in this encounter Visit Diagnoses + + | Diagnosis | + + | Pre-op exam - Primary Preoperative examination, unspecified | + + | CAD (coronary artery disease) Coronary atherosclerosis of unspecified type of vessel, | | [place] or graft | + + | Tobacco use disorder | + + documented in this encounter
--- OUTSIDE RECORDS SUMMARY | ~2019-03-02 | XMS | Encounter Summary ---
Demographics + + + | Address | [address] | | | [place] [address] | + + + | Home Phone | | + + + | Preferred Language | Unknown | + + + | Marital Status | Single | + + + | Jew Affiliation | 1013 | + + + | Race | Unknown | + + + | Ethnic Group | Unknown | + + + Author + + + | Author | [facility] | | | and Dwayneana | + + + | Organization | [facility] | | | and [...] Team Providers + +------+ + | Care Knowledge Engineer Name | Role | Phone | [...] disease (HCC) | | | | [place], [place] | [address] [place] | (Primary Dx) | | | | [address] | [place] [address] | | | | | [phone] | [phone] | | | | | | | [...]
--- OUTSIDE RECORDS SUMMARY | ~2019-03-02 | XMS | Encounter Summary ---
Demographics + + + | Address | [address] | | | [place] [address] | + + + | Home Phone [...] + + | Author | [facility] | | | and Dwayneana | + + + | Organization | [facility] | | | and Dwayneana | + + + | Address | Unknown | + + + | Phone | Unavailable | + + + Support + + +---------+ + | Name | Relationship | Address | Phone | + + +---------+ + | Andrew Couch | ECON | Unknown | | + + +---------+ + | Shilparaul Couch | ECON | Unknown | | + + +---------+ + Care Team Providers + +------+ + | Care Kitchen Clerk Name | Role | Phone | + +------+ + PCP | Unavailable | + +------+ + Reason for Visit + + + | Reason | Comments | + + + | Follow-up | Patient had recall, received results | + + + Encounter Details +--------+ + + + + | Date | Type | Department | Care Team | Description | +--------+ + + + + | 04/28/ | Tele[facility] | [facility] | Nestor Nice | Follow-up (Patient | | 2014 | | SURGERY [address] | MD Alma, FACS [address] | had recall, received | | | | [place], [place] | [facility] | results) | | | | [address] | [place] [address] | | | | | [phone] | [phone] | | | | | | | [...] Carotid Duplex | Imaging | Routin | Carotid stenosis | Expected: 04/23/2014 | | Bilateral | | e | | (Approximate), | | | | | | Expires: 06/28/2014 | + +---------+--------+ + + documented as of this encounter Visit Diagnoses + + | Diagnosis | + + | Carotid stenosis - Primary Occlusion and stenosis of carotid artery without mention | | of cerebral infarction | + + documented in this encounter"
--- OUTSIDE RECORDS SUMMARY | ~2019-03-02 | XMS | Encounter Summary ---
Demographics + + + | Address | [address] | | | [place] [address] | + + + | Home Phone | | + + + | Preferred Language | Unknown | + + + | Marital Status | Single | + + + | Confucianism Affiliation | Unknown | + + + | Race | White | + + + | Ethnic Group | Other Race | + + + Author + + + | Author | [facility] | + + + | Organization | [facility] | + + + | Address | Unknown | + + + | Phone | Unavailable | + + + Support + + +---------+ + | Name | Relationship | Address | Phone | + + +---------+ + | Karen Unknown | ECON | Unknown | | + + +---------+ + Care Team Providers + +------+ + | Care Jockey Valet Name | Role | Phone | + +------+ + | Unknown | PCP | Unavailable | + +------+ + Reason for Visit + + + | Reason | Comments | + + + | [facility] | hypoglycemia(DM) and CXR | | Nursing Facility | | + + + Encounter Details +--------+ + + + + | Date | Type | Department | Care Team | Description | +--------+ + + + + | 09/15/ | Telephone | General Internal | Ronald Eldridge | [facility] | | 2019 | | [facility] | MD Macie [address] | Nursing Facility | | | | [address] [place] | [address] | (hypoglycemia(DM) | | | | Lazara Infante Mailcode: | [place], [place] | and CXR ) | | | | [address] [place], [place] | [address] | | | | | [address] | [phone] | | | | | [phone] | | | +--------+ + + + [...]
--- OUTSIDE RECORDS SUMMARY | ~2019-03-02 | XMS | Encounter Summary ---
Demographics + + + | Address | [address] | | | [place] [address] | + + + | Home Phone [...] + + + | Author | [facility] | | | and Dwayneana | + + + | Organization | [facility] | | | and Dwayneana [...] Team Providers + +------+ + | Care Agronomy Advisor Name | Role | Phone | + +------+ + | Margie Gonzalez | PCP | | + +------+ + Encounter Details +--------+ + + + + | Date | Type | Department | Care Team | Description | +--------+ + + + + | 11/14/ | Hospital | [facility] | Conversion | Pain | | 2018 | Encounter | CONVERSION [address] | Transaction, | | | | | [address] | Provider Unknown | | | | | [place], [place] | [phone] | | | | | [address] | | | | | | [phone] | | | +--------+ + + + [...]
--- OUTSIDE RECORDS SUMMARY | ~2019-03-02 | XMS | Encounter Summary ---
Demographics + + + | Address | [address] | | | [place] [address] | + + + | Home Phone [...] | Author | [facility] | | | and Dwayneana | + + + | Organization | [facility] [...] Providers + +------+ + | Care Senior Marketing Specialist Name | Role | Phone | + +------+ + | Matt Kinney MD | PCP | | + +------+ + Encounter Details +--------+ + + + + | Date | Type | Department | Care Team | Description | +--------+ + + + + | 03/03/ | Abstract | [facility] | Bubba Maxwell | | | 2014 | | [address] [address] | MD Yimi [address] | | | | | [place], | [address] [place] | | | | | [place] [address] | [place] [address] | | | | | [phone] | [phone] | | | | | | | [...]
--- OUTSIDE RECORDS SUMMARY | ~2019-03-02 | XMS | Encounter Summary ---
Demographics + + + | Address | [address] | | | [place] [address] | + + + | Home Phone [...] | Author | [facility] | | | and Dwayneana | + + + | Organization | [facility] | | [...] Providers + +------+ + | Care Assistant Accounting Manager Name | Role | Phone | + +------+ + | Margie Gonzalez | PCP | | + +------+ + Encounter Details +--------+ + + + + | Date | Type | Department | Care Team | Description | +--------+ + + + + | 01/16/ | Orders Only | [facility] | Kasey Albert | Stenosis of carotid | | 2018 | | CARDIOLOGY [address] | D RN | artery, unspecified | | | | [place], | | laterality (Primary | | | | [place] [address] | | Dx); Coronary artery | | | | [phone] | | disease, angina | | | | | | presence | | | | | | unspecified, | | | | | | unspecified vessel | | | | | | or lesion type, | | | | | | unspecified whether | | | | | | [place] or | | | | | | transplanted heart | +--------+ + + + + Social [...] Lipid Panel | Lab | Routin | Stenosis of | Expected: | | | | e | carotid artery, | 01/16/2019, Expires: | | | | | unspecified | 01/16/2020 | | | | | laterality Coronary | | | | | | artery disease, | | | | | | angina presence | | | | | | unspecified, | | | | | | unspecified vessel | | | | | | or lesion type, | | | | | | unspecified whether | | | | | | [place] tribes or | | | | | | transplanted heart | | + +------+--------+ + + | Hepatic Function | Lab | Routin | Stenosis of | Expected: | | Panel | | e | carotid artery, | 01/16/2019, Expires: | | | | | unspecified | 01/16/2020 | | | | | laterality Coronary | | | | | | artery disease, | | | | | | angina presence | | | | | | unspecified, | | | | | | unspecified vessel | | | | | | or lesion type, | | | | | | unspecified whether | | | | | | [place] tribes or | | | | | | transplanted heart | | + +------+--------+ + + documented as of this encounter Visit Diagnoses + + | Diagnosis | + + | Stenosis of carotid artery, unspecified laterality - Primary | + + | Coronary artery disease, angina presence unspecified, unspecified vessel or lesion | | type, unspecified whether [place] tribes or transplanted heart | + + documented in this encounter"
--- OUTSIDE RECORDS SUMMARY | ~2019-03-02 | XMS | Clinical Summary ---
Demographics + + + | Address | [address] | | | [place] [address] | + + + | Home Phone [...] Comments KARINA is fully live on both [facility] Ambulatory and [facility] InPatient.[facility] Allergies + + + + + + [...] CROSS | | [address] | [address] | [address] | | | | [place] | | esent | | [place], | | | | L | | | | [place] [address] | | + +--------+ +--------+ + +--------+ | MEDICARE | MEDICA | xxxxxxxxxxx | 10/22/19 | [phone] | [address] | Medica | | | RE A & | | 15-Pre | 1 | [address] | re | | | B | | sent | | [place] | | | | | | | | [address] | | + +--------+ +--------+ + +--------+ [...] | | al/Fam | | 1951 | [phone] | [address] [place], [place] | | | christian | | | 6 (Home) | [address] | | | | | | [phone] | | | | | | | 5 (Work) | | + +--------+ +--------+ + + | Judi Benitez | Antonieta | Self | [birth year] | [address] | | | l | | 1951 | [phone] | [address] [place] | | | Ivan | | | 6 (Home) | [address] | | | g | | | [phone] | | | | | | | 5 (Work) | | + +--------+ +--------+ + +"
--- OUTSIDE RECORDS SUMMARY | ~2019-03-02 | XMS | Encounter Summary ---
Demographics + + + | Address | [address] | | | [place] [address] | + + + | Home Phone | | + + + | Preferred Language | Unknown | + + + | Marital Status | Single | + + + | Methodist Affiliation | Unknown | + + + | Race | White | + + + | Ethnic Group | Other Race | + + + Author + + + | Author | [facility] | + + + | Organization | [facility] | + + + | Address | Unknown | + + + | Phone | Unavailable | + + + Support + + +---------+ + | Name | Relationship | Address | Phone | + + +---------+ + | Karen Unknown | ECON | Unknown | | + + +---------+ + Care Team Providers + +------+ + | Care Home Lighting Adviser Name | Role | Phone | + +------+ + | Margie Gonzalez PA-C | PCP | | + +------+ + Reason for Visit + + + | Reason | Comments | + + + | Hypoglycemia | | + + + Encounter Details +--------+ + + + + | Date | Type | Department | Care Team | Description | +--------+ + + + + | 09/15/ | Telephone | [facility] | [place], | Hypoglycemia | | 2019 | | at [facility] | MD Ran | | | | | [address] | [address] | | | | | Lazara Infante Mailcode: | Lazara Infante [facility], | | | | | [id number] [facility]ician's | [place] [address] | | | | | [place], | [phone] | | | | | [place] [address] | | | | | | [phone] | | | +--------+ + + + [...]
--- OUTSIDE RECORDS SUMMARY | ~2019-03-02 | XMS | Encounter Summary ---
Demographics + + + | Address | [address] | | | [place] [address] | + + + | Home Phone [...] + | Author | [facility] | | | and Dwayneana | + + + | Organization | [facility] | | | and [...] Team Providers + +------+ + | Care Ordnance Truck Installation Supervisor Name | Role | Phone | [...] + + | 04/28/ | Telephone | [facility] | Nestor Nice | Follow-up (Patient | | 2014 | | SURGERY [address] | MD Alma, FACS [address] | had recall, received | | | | [place], [place] | [facility] | results) | | | | [address] | [place] [address] | | | | | [phone] | [phone] | | | | | | | [...]
--- OUTSIDE RECORDS SUMMARY | ~2019-03-02 | XMS | Encounter Summary ---
Demographics + + + | Address | [address] | | | [place] [address] | + + + | Home Phone [...] | Author | [facility] | | | and Dwayneana | + + + | Organization | [facility] | | | and Dwayneana [...] Team Providers + +------+ + | Care Relay Telegrapher Name | Role | Phone | + +------+ + | Magrie Gonzalez | PCP | | + +------+ [...] | artery, unspecified | | | | [place], | | laterality (Primary | | | | [place] [address] | | Dx); Coronary artery | | | | [phone] | | disease, angina | | | | | | presence | | | | | | unspecified, | | | | | | unspecified vessel | | | | | | or lesion type, | | | | | | unspecified whether | | | | | | afognak or | | | | | | [...] whether | | | | | | afognak or | | | | | | [...] whether | | | | | | afognak or | | | | | | transplanted heart | | + +------+--------+ + + documented as of this encounter Visit Diagnoses + + | Diagnosis | + + | Stenosis of carotid artery, unspecified laterality - Primary | + + | Coronary artery disease, angina presence unspecified, unspecified vessel or lesion | | type, unspecified whether afognak or transplanted heart | + + documented in this encounter"
--- OUTSIDE RECORDS SUMMARY | ~2019-03-02 | XMS | Encounter Summary ---
Demographics + + + | Address | [address] | | | [place] [address] | + + + | Home Phone [...] Author | [facility] | | | and Dwayneana | + + + | Organization | [facility] | | | and [...] Providers + +------+ + | Care Manager Front Name | Role | Phone | + [...] | | | | | Tremor | [address] | updated | | | | | | [place], | address | | | | | | [place] [address] | | | | | | | Phone: | | | | | | | [phone] | | | | | | | Fax: | | | | | | | [phone] | | +--------+ + + + + [...] | | | | pain Labral | [address] | [place] | | | | | tear of | [place], | [place], [place] | | | | | shoulder, | [place] [address] | [address] | | | | | right, | Phone: | Phone: | | | | | sequela | [phone] | [phone] | | | | | | Fax: | Fax: | | | | | | [phone] | [phone] | +--------+ + + + + + [...] | PHYSIATRY [address] | [address] | (Primary Dx); | | | | [place], | [place], [place] | Tremor; Lumbalgia; | | | | [place] [address] | [address] | Lumbar facet | | | | [phone] | | arthropathy; Lumbar | | | [...] Your inje ction will be performed at [facility]. Please take note of weather your pain is significantly reduced in the hours immediately following the injecti on. Return to the clinic in 6-8 weeks to review the management of your back pain. documented in this encounter Progress Notes Gael Adam MD - 02/10/2014 3:54 PM PDTThis office note has been dictated. Job ID# [id number] signed by Gael Adam MD at 02/10/2014 6:34 PM PDTGael Adam MD - 02/10/2014 12:00 AM PDT [facility] [address] [place] [id number] FAX: [phone] OFFICE VISIT PRIMARY CARE PROVIDER: Matt Kinney [...] therapy for low back. She continues a [employer] e exercise program. She has tried anti-inflammatory [...] back pain. [facility] to review her response to lumbar facet steroid injections. Thank you for allowing me to be involved in the care of your patient. If you have any quest ions regarding the care of the patient, please do not hesitate to call. Greater than 40 min utes was spent [id number] today with the patient, over half of which was spent formulatin g and discussing her medical treatment plan. Gael Adam Jr, MD IMMANUEL / ISAI JOB #: [id number] cc: Tracey Kinney MD Tdocumented in this [...]
--- OUTSIDE RECORDS SUMMARY | ~2019-03-02 | XMS | Encounter Summary ---
Demographics + + + | Address | [address] | | | [place] [address] | + + + | Home Phone | | + + + | Preferred Language | Unknown | + + + | Marital Status | Single | + + + | Gnosticism Affiliation | 1013 | + + + | Race | Unknown | + + + | Ethnic Group | Unknown | + + + Author + + + | Author | [facility] | | | and Dwayneana | + + + | Organization | [facility] | | | and [...] Team Providers + +------+ + | Care Hotel Administrative Assistant Name | Role | Phone | [...] Description | +--------+--------+ + + + | 04/04/ | Refill | [facility] | Gael Adam, | Medication Refill | | 2013 | | PHYSIATRY [address] | MD [address] | | | | | [place], | [place], [place] | | | | | [place] [address] | [address] | | | | | [phone] | | | +--------+--------+ + + + [...]
--- OUTSIDE RECORDS SUMMARY | ~2019-03-02 | XMS | Encounter Summary ---
Demographics + + + | Address | [address] | | | [place] [address] | + + + | Home Phone | | + + + | Preferred Language | Unknown | + + + | Marital Status | Single | + + + | Buddhist Affiliation | 1013 | + + + | Race | Unknown | + + + | Ethnic Group | Unknown | + + + Author + + + | Author | [facility] | | | and Dwayneana | + + + | Organization | [facility] | | | and Dwayneana [...] Team Providers + +------+ + | Care Remote Advisor Name | Role | Phone | [...] | +--------+ + + + + | 07/23/ | Telephone | [facility] | Bubba Maxwell | Appointment | | 2014 | | CARDIOLOGY [address] | MD Yimi [address] | | | | | [place], | [address] | | | | | [place] [address] | [place] [address] | | | | | [phone] | [phone] | | | | | | | [...]
--- OUTSIDE RECORDS SUMMARY | ~2019-03-02 | XMS | Encounter Summary ---
Demographics + + + | Address | [address] | | | [place] [address] | + + + | Home Phone [...] Author | [facility] | | | and Dwayneana | + + + | Organization | [facility] [...] Team Providers + +------+ + | Care Copier And Printer Field Technician Name | Role | Phone | + +------+ + | Margie Gonzalez | PCP | | + +------+ + Reason for Referral Evaluate & Treat (Emergency) +--------+ + + + + + | Status | Reason | Specialty | Diagnoses / | Referred By | Referred To | | | | | Procedures | Contact | Contact | +--------+ + + + + + | Closed | Specialty | Cardiothoraci | Diagnoses | Maxood, | Mara, | | | Services | c Surgery | Coronary | Bubba | Boby Ni MD | | | Required | | artery | MD Yimi | [address] | | | | | disease, | [address] | | | | | angina | [place] | [address] | | | | | presence | [place], [place] | [place], [place] | | | | | unspecified, | [address] | [address] Phone: | | | | | unspecified | Phone: | [phone] | | | | | vessel or | [phone] | Fax: | | | | | lesion type, | Fax: | [phone] | | | | | unspecified | [phone] | | | | | | whether | | | | | | | ge[place] or | | | | | | | transplanted | | | | | | | heart | | | | | | | Mitral valve | | | | | | | | | | | | | | insufficienc | | | | | | | y, | | | | | | | unspecified | | | | | | | etiology | | | +--------+ + + + + + Reason for Visit +--------+ + | Reason | Comments | +--------+ + | Other | patient would like to go to [place] instead of [place] | +--------+ + Encounter Details +--------+ + + + + | Date | Type | Department | Care Team | Description | +--------+ + + + + | 05/08/ | Telephone | [facility] | Bubba Maxwell | Other (patient would | | 2019 | | CARDIOLOGY [address] | MD Yimi [address] | like to go to | | | | [place], | [address] [place] | [place] instead of | | | | [place] [address] | [place] [address] | [place]) | | | | [phone] | [phone] | | | | | | | [...] | External Referral to | Outpatient | STAT | Coronary artery | Ordered: 05/09/2018 | | Cardiothoracic | Referral | | disease, angina | | | Surgery | | | presence | | | | | | unspecified, | | | | | | unspecified vessel | | | | | | or lesion type, | | | | | | unspecified whether | | | | | | georgetown or | | | | | | transplanted heart | | | | | | Mitral valve | | | | | | insufficiency, | | | | | | unspecified etiology | | + + +--------+ + + documented as of this encounter Visit Diagnoses + + | Diagnosis | + + | Coronary artery disease, angina presence unspecified, unspecified vessel or lesion | | type, unspecified whether [place] or transplanted heart - Primary | + + | Mitral valve insufficiency, unspecified etiology | + + documented in this encounter"
--- OUTSIDE RECORDS SUMMARY | ~2019-03-02 | XMS | Encounter Summary ---
Demographics + + + | Address | [address] | | | [place] [address] | + + + | Home Phone [...] | [facility] | | | and Dwayneana | + + + | Organization | [facility] | [...] Team Providers + +------+ + | Care Protective Signal Operator Name | Role | Phone | + +------+ + PCP | Unavailable | + +------+ + Encounter Details +--------+ + + + + | Date | Type | Department | Care Team | Description | +--------+ + + + + | 04/11/ | Hospital | [facility] | Nestor Nice | | | 2010 | Encounter | MED CTR XRAY [address] | MD Alma, FACS [address] | | | | | [place] | [address] [place] | | | | | [place] [address] | [place] [address] | | | | | [phone] | [phone] | | | | | | | [...] Performed At | + + + | [facility] | [place] | | [address] [place] | [facility] | | | DIAG IMG | | CAROTID DUPLEX ULTRASOUND [facility] | | | [facility] Center IMAGING #: | | | ECONOMIC DEVELOPMENT MANAGER: OCTAVIA/TRACI REASON FOR EXAM: CAROTID STENOSIS, H/O [...] Transcribed Date/Time: | | | 04/11/2011 16:36 Internet Ecommerce Specialist: <Electronically Signed | | | by Boby Masterson MD> 04/12/11 0816 | | + + + + + | Procedure Note | + + | John, Rad Conversion - 05/30/2013 4:[address] [facility] | | Diagnostic Imaging Department | | [address], [place] | | | | | | | | | | CAROTID DUPLEX ULTRASOUND | | [facility] | | | | IMAGING #: ECONOMIC DEVELOPMENT MANAGER: LUL | | REASON FOR EXAM: CAROTID [...] | Transcribed Date/Time: 04/11/2011 16:36 | | Internet Ecommerce Specialist: | | <Electronically Signed by Boby Masterson MD> 04/12/11 0816 | + + + +---------+ + + | Performing | Address | City/State/Zipcode | Phone Number | | Organization | | | | + +---------+ + + | [place] | | | | | [facility] | | | | + +---------+ + + documented in this encounter Visit Diagnoses Not on filedocumented in this encounter"
--- OUTSIDE RECORDS SUMMARY | ~2019-03-02 | XMS | Encounter Summary ---
Demographics + + + | Address | [address] | | | [place] [address] | + + + | Home Phone | | + + + | Preferred Language | Unknown | + + + | Marital Status | Single | + + + | Religion Affiliation | 1013 | + + + | Race | Unknown | + + + | Ethnic Group | Unknown | + + + Author + + + | Author | [facility] | | | and Dwayneana | + + + | Organization | [facility] | | | and Dwayneana | [...] Team Providers + +------+ + | Care Search Advertising Strategist Name | Role | Phone | + [...] + + | 10/30/ | Office | [facility] | Bubba Maxwell | Stenosis of carotid | | 2018 | Visit | CARDIOLOGY [address] | MD Yimi [address] | artery, unspecified | | | | [place], | [address] [place] | laterality (Primary | | | | [place] [address] | [place] [address] | Dx); Functional | | | | [phone] | [phone] | murmur; | | | | | | Hypertension, | | | | | | unspecified type; | | | | | | Abnormal heart rate; | | | | | | Poor circulation; | | | | | | Hyperlipidemia, [...] + + + | Blood Pressure | 140/70 | 10/30/2017 3:37 PM | | | | | PDT | | + + + + + | Pulse | 80 | 10/30/2017 3:37 PM | | | | | PDT | | + + + + + | Temperature | - | - | | + + + + + | Respiratory Rate | 16 | 10/30/2017 3:37 PM | | | | | PDT | | + + + + + | Oxygen Saturation | - | - | | + + + + + | Inhaled Oxygen | - | - | | | Concentration | | | | + + + + + | Weight | 57.1 kg (125 lb 14.1 | 10/30/2017 3:37 PM | | | | oz) | PDT | | + + + + + | Height | 165.1 cm (5' 5") | 10/30/2017 3:37 PM | | | | | PDT | | + + + + + | Body Mass Index | 20.95 | 10/30/2017 3:37 PM | | | | | PDT | | + + + + + documented in this encounter Patient Instructions Patient Instructions Erika Blancas RN - 10/30/2017 3:30 PM PDT INSTRUCTIONS Etelvina Benitez 1950 Procedure: Left heart catheterization Day: Sunday Date: 11-13-17 Check-in time: 6:30am 1. [facility]). 2. Stop taking Metformin the day prior, the day of and the day after your procedure: , 11-13-17, and 11-14-17. You will resume your previous dose on 11-15-17. 3. Do not eat or drink anything [...] procedure. 7. Make sure you have a recycling collections driver to take you home. Your recycling collections driver will also need to sign you ou [...] hospital line at and ask for nursing shirt ironer supervisor t o let them know you are cancelling . Follow up appointment in Cardiology: 2 months Provider: Rafael Maxwell MD Date: Check-in time: documented in this encounter Progress Notes Bubba Maxwell MD - 10/30/2017 3:30 PM PDTFormatting of [...] since resolved. She was recently seen in [facility] consultation by pulmonology. Unfortunately she continues to [...] returned for follow-up visit and moved to [place], having only ret urned recently. She ended up undergoing cervical fusion surgery in [place] and did not brown ve any further [...] CV LHC; Surgeon: Bubba Maxwell MD; Location: [facility] CV LAB HYSTERECTOMY [place] LYMPH NODE BIOPSY 1971 [place] NASAL SINUS SURGERY 1987 OTHER SURGICAL HISTORY Left 07/28/2014 Procedure: LEFT HEART CATH; Surgeon: Bubba Maxwell MD; Location: [facility] CARDIO VASC ULAR LAB ROTATOR CUFF [...] have three-vessel CAD as detailed above in 2015 but did not follow-up to discuss options [...] f rom consideration of consultation with an tube pusher if feasible. Patient also would b enefit [...] made to ensure accuracy; however, inadvertent computerized instructor painting errors may be pre sent. Electronically signed by: Rafael Maxwell MD PhD [facility] 10/30/2017 documented in t his encounter Plan of Treatment Not on filedocumented as of this encounter Visit Diagnoses + + | Diagnosis | + + | Stenosis of carotid artery, unspecified laterality - Primary | + + | Functional murmur Undiagnosed cardiac murmurs | + + | Hypertension, unspecified type | + + | Abnormal heart rate | + + | Poor circulation Unspecified circulatory system disorder | + + | Hyperlipidemia, unspecified hyperlipidemia type | + + | SOB (shortness of breath) Shortness of breath | + + documented in this encounter
--- OUTSIDE RECORDS SUMMARY | ~2019-03-02 | XMS | Encounter Summary ---
Demographics + + + | Address | [address] | | | [place] [address] | + + + | Home Phone | | + + + | Preferred Language | Unknown | + + + | Marital Status | Single | + + + | Synagogue Affiliation | 1013 | + + + | Race | Unknown | + + + | Ethnic Group | Unknown | + + + Author + + + | Author | [facility] | | | and Dwayneana | + + + | Organization | [facility] [...] Providers + +------+ + | Care Wood Boring Machine Operator Name | Role | Phone | + +------+ + | Matt Kinney MD | PCP | | + +------+ + Encounter Details +--------+ + + + + | Date | Type | Department | Care Team | Description | +--------+ + + + + | 12/24/ | Hospital | [facility] | Gael Adam, | Right shoulder pain; | | 2013 | Encounter | MED CTR XRAY [address] | MD [address] | Right rotator cuff | | | | [place] | [place], [place] | tear | | | | [place] [address] | [address] | | | | | [phone] | | | +--------+ + + + [...] + +--------+ + + + | XR SHOULDER RIGHT 2 | Routin | 12/24/2013 | Right shoulder | Results for this | | + VW | e | 3:20 PM | pain Right rotator | procedure are in the | | | | PDT | cuff tear | results section. | + +--------+ + + + documented in this encounter Results XR Shoulder Right 2 + Vw (12/24/2013 3:20 PM PDT) + + | Specimen | + + | | + + + + + | Narrative | Performed At | + + + | XR SHOULDER RIGHT 2 + VW 12/24/2013 3:20 PM HISTORY: acute on | MISCELANIOUS | | chronic right shoulder pain. COMPARISON: None. FINDINGS: | LAB | | There are no acute osseous abnormalities. There is shortening of the | | | right clavicle that could be due to prior acromioplasty. Mild | | | degenerative changes are noted of the glenohumeral joint with | | | osteophytosis. Bone mineralization is normal. Visualized chest is | | | unremarkable. IMPRESSION - No acute findings. Mild | | | degenerative changes of glenohumeral joint. Prior acromioplasty. | | | Dictated and Signed by: Craig Díaz MD Electronically signed: | | | 12/24/2013 3:22 PM | | + + + + + | Procedure Note | + + | John, Rad Results In - 12/24/2013 3:25 PM PDT XR SHOULDER RIGHT 2 + VW 12/24/2013 3:20 | | PMHISTORY: acute on chronic right shoulder pain.COMPARISON: None.FINDINGS:There are no | | acute osseous abnormalities. There is shortening of the rightclavicle that could be due | | to prior acromioplasty. Mild degenerative changes arenoted of the glenohumeral joint | | with osteophytosis. Bone mineralization isnormal. Visualized chest is | | unremarkable.IMPRESSION -No acute findings.Mild degenerative changes of glenohumeral | | joint.Prior acromioplasty.Dictated and Signed by: Craig Díaz MD Electronically | | signed: 12/24/2013 3:22 PM | |clavicle that could be due to prior acromioplasty. Mild degenerative changes are | |noted of the glenohumeral joint with osteophytosis. Bone mineralization is | |normal. Visualized chest is unremarkable. | | | |IMPRESSION - | |No acute findings. | | | |Mild degenerative changes of glenohumeral joint. | | | |Prior acromioplasty. | | | |Dictated and Signed by: Craig Díaz MD | | Electronically signed: 12/24/2013 3:22 PM | + + + +---------+ + + | Performing | Address | City/State/Zipcode | Phone Number | | Organization | | | | + +---------+ + + | [facility] | | | [phone] | + +---------+ + + | [facility] | | | [phone] | + +---------+ + + documented in this encounter Visit Diagnoses + + | Diagnosis | + + | Right shoulder pain Pain in joint, shoulder region | + + | Right rotator cuff tear Rotator cuff (capsule) sprain | + + documented in this encounter"
--- OUTSIDE RECORDS SUMMARY | ~2019-03-02 | XMS | Encounter Summary ---
Demographics + + + | Address | [address] | | | [place] [address] | + + + | Home Phone [...] + + | Author | [facility] | | | and Dwayneana | + + + | Organization | [facility] [...] Team Providers + +------+ + | Care Electroplating Sales Representative Name | Role | Phone | + +------+ + | Margie Gonzalez | PCP | | + +------+ + Encounter Details +--------+ + + + + | Date | Type | Department | Care Team | Description | +--------+ + + + + | 08/13/ | Abstract | [facility] | Bubba Maxwell | | | 2017 | | [place] [address] | MD [address] | | | | | [place], | [address] [place] | | | | | [place] [address] | [place] [address] | | | | | [phone] | [phone] | | | | | | | [...]
--- OUTSIDE RECORDS SUMMARY | ~2019-03-02 | XMS | Encounter Summary ---
Demographics + + + | Address | [address] | | | [place] [address] | + + + | Home Phone [...] + + + | Author | [facility] | | | and Dwayneana | + + + | Organization | [facility] | | | and Dwayneana [...] Providers + +------+ + | Care Front Desk Receptionist Name | Role | Phone | + +------+ + | Matt Kinney MD | PCP | | + +------+ + Encounter Details +--------+ + + + + | Date | Type | Department | Care Team | Description | +--------+ + + + + | 08/07/ | Hospital | [facility] | Gael Adam, | Lumbalgia; Lumbar | | 2013 | Encounter | MED CTR XRAY [address] | MD [address] | degenerative disc | | | | [place] | [place], [place] | disease | | | | [place] [address] | [address] | | | | | [phone] | | | +--------+ + + + [...] lumbar spine. Levoconvex scoliosis. 5 | | yghwfa-fgworvbbkghqg-mngb vertebral bodies. Retrolisthesis of L3 on L4 [...] + | MISCELLANEOUS LAB | | | [phone] | + +---------+ + + | MISCELANIOUS LAB | | | [phone] | + +---------+ + + documented in this encounter Visit Diagnoses + + | Diagnosis | + + | Lumbalgia Lumbago | + + | Lumbar degenerative disc disease Degeneration of lumbar or lumbosacral intervertebral | | disc | + + documented in this encounter"
--- OUTSIDE RECORDS SUMMARY | ~2019-03-02 | XMS | Encounter Summary ---
Demographics + + + | Address | [address] | | | [place] [address] | + + + | Home Phone | | + + + | Preferred Language | Unknown | + + + | Marital Status | Single | + + + | Methodist Affiliation | 1013 | + + + | Race | Unknown | + + + | Ethnic Group | Unknown | + + + Author + + + | Author | [facility] | | | and Dwayneana | + + + | Organization | [facility] | | | and [...] Team Providers + +------+ + | Care Beet Worker Name | Role | Phone | [...] | Mitral | Bubba | [address] | | | | | valve | MD Yimi | [place], | | | | | insufficienc | [address] | [place] | | | | | y, | [place] | [address] | | | | | unspecified | [place] | Phone: | | | | | etiology | [address] | [phone] | | | | | Procedures | Phone: | Fax: | | | | | ECHO | [phone] | [phone] | | | | | Transesophag | Fax: | | | | | | eal (BELKIS) | [phone] | | | | | | AL ECHO | | | | | | | TRANSESOPHAG | | | | | | | R-T 2D | | | | | | | W/PRB IMG | | | | | | | ACQUISJ I&R | | | | | | | AL DOPPLER | | | | | | | ECHO | | | | | | | HEART,COMPLE | | | | | | | TE AL | | | | | | | DOPPLER | | | | | | | COLOR FLOW | | | | | | | VELOCITY MAP | | | | | | | BELKIS DOS-> | | | | | | | 12/25/17 AT | | | | | | | 7AM | | | +--------+--------+ + + + + Reason for Visit Auth/Cert +--------+--------+ + [...] + + + + | 12/25/ | Hospital | [facility] | Bubba Ornelas | Mitral valve | | 2018 | Encounter | MED CTR CV INTRA OP | MD Yimi [address] | insufficiency, | | | | [address] | [address] [place] | unspecified etiology | | | | [place] | [place] [address] | | | | | [address] | [phone] | | | | | [phone] | | | +--------+ + + + [...] (BELKIS) Demographics Patient | | | Name [facility] ETELVINA Room Number M CARDIO MULU | | | LAB ROSALIE | | | POOL Patient Number [id number] Date of Study | | | 12/25/2017 Visit Number [id number] Accession | | | [id number] Interpreting YIMI ORNELAS MD Number | | | Physician Date of 1950 | | | Referring YIMI ORNELAS MD | | | Physician Age 67 | | | year(s) Healthcare Administrator LIZETH SUMNER [facility] Gender | | | Female Nurse | | | Stress Ground Mixer Procedure Type of Study BELKIS | | [...] | | (BELKIS) Demographics Patient Name AUSTIN MARTINEZH Room Number WSM CARDIO | | [facility] [place] Patient Number | | [id number] Date of Study 12/25/2017 Visit Number [id number] Accession | | [id number] Interpreting YIMI ORNELAS MD Number | | Physician Date of 1950 Referring YIMI ORNELAS MD | | Physician Age 67 year(s) Healthcare Administrator LIZETH | | BIANCA SUMNER Gender Female [...] | | POC | | | [facility] | | | | | | [...] [address] | [place] | [phone] | | [facility] | | [address] | | | - LABORATORY | | [...] | | | | FERNANDO EASTMAN MD ([id number]) | | | | | | on [...] + | Diagnosis | + + | Mitral valve insufficiency, unspecified etiology | + + documented in this encounter Administered Medications + +---------+ +------+-------+------+ | Medication Order | MAR | Action | Dose | Rate | Site | | | Action | Date | | | | + +---------+ +------+-------+------+ | sodium chloride 0.9% (NS) | New [...] | | | | | + +---------+ +------+-------+------+ +---+---+ | | | +---+---+ documented in this encounter
--- OUTSIDE RECORDS SUMMARY | ~2019-03-02 | XMS | Encounter Summary ---
Demographics + + + | Address | [address] | | | [place] [address] | + + + | Home Phone [...] + + + | Author | [facility] | | | and Dwayneana | + + + | Organization | [facility] | | | and [...] Team Providers + +------+ + | Care Naturalization Examiner Name | Role | Phone | + [...] [address] | [address] [place], [place] | cervical (Primary | | | | [place], [place] | [address] | Dx); Neuropathy | | | | [address] | | | | | | [phone] | | | +--------+ + + + [...] + | MISCELLANEOUS LAB | | | [phone] | + +---------+ + + | MISCELANIOUS LAB | | | [phone] | + +---------+ + + documented in this encounter Visit Diagnoses + + | Diagnosis | + + | DDD (degenerative disc disease), cervical - Primary Degeneration of cervical | | intervertebral disc | + + | Neuropathy Mononeuritis of unspecified site | + + documented in this encounter"
--- OUTSIDE RECORDS SUMMARY | ~2019-03-02 | XMS | Encounter Summary ---
Demographics + + + | Address | [address] | | | [place] [address] | + + + | Home Phone [...] Author | [facility] | | | and Dwayneana | + + + | Organization | [facility] | | | and Dwayneana [...] Team Providers + +------+ + | Care Boiler Tester Name | Role | Phone | + +------+ + | Matt Kinney MD | PCP | | + +------+ + Encounter Details +--------+ + + + + | Date | Type | Department | Care Team | Description | +--------+ + + + + | 07/07/ | Orders Only | [facility] [place] | Bubba Maxwell | CAD (coronary artery | | 2015 | | CARDIOLOGY [address] | MD Yimi [address] | disease) (Primary | | | | [place], | [address] [place] | Dx); [place] | | | | [place] [address] | [place] [address] | evaluation | | | | [phone] | [phone] | | | | | | | [...] on filedocumented as of this encounter Results Cholesterol, LDL (07/15/2014 10:44 [...] at | | | | | | ([email or web address]).Testing | | | | | | Performed: [facility], [address] | | | | | | [address], [place] | | | | | | [address] | | | | + + + + + + + + | Specimen | + + | Blood specimen | | (specimen) | + + + + + + + | Performing | Address | City/State/Zipcode | Phone Number | | Organization | | | | + + + + + | [facility] | [address] | [place] [address] | [phone] | + + + + + documented in this encounter Visit Diagnoses + + | Diagnosis | + + | CAD (coronary artery disease) - Primary Coronary atherosclerosis of unspecified type | | of vessel, augustine or graft | + + | Pre-op evaluation Preoperative examination, unspecified | + + documented in this encounter"
--- OUTSIDE RECORDS SUMMARY | ~2019-03-02 | XMS | Encounter Summary ---
Demographics + + + | Address | [address] | | | [place] [address] | + + + | Home Phone | | + + + | Preferred Language | Unknown | + + + | Marital Status | Single | + + + | Sabianist Affiliation | 1013 | + + + | Race | Unknown | + + + | Ethnic Group | Unknown | + + + Author + + + | Author | [facility] | | | and Dwayneana | + + + | Organization | [facility] | | | and [...] + +------+ + | Care Director Of Strategic Marketing Name | Role | Phone | + +------+ + | Matt Kinney MD | PCP | | + +------+ + Reason for Visit +---------+ + | Reason | Comments | +---------+ + | Results | | +---------+ + Encounter Details +--------+ + + + + | Date | Type | Department | Care Team | Description | +--------+ + + + + | 01/07/ | Telephone | [facility] [place] | Gael Adam, | Results | | 2013 | | PHYSIATRY [address] | MD [address] | | | | | [place], | [place], [place] | | | | | [place] [address] | [address] | | | | | [phone] | | | +--------+ + + + [...]
--- OUTSIDE RECORDS SUMMARY | ~2019-03-02 | XMS | Encounter Summary ---
Demographics + + + | Address | [address] | | | [place] [address] | + + + | Home Phone [...] + + | Author | [facility] | | | and Dwayneana | + + + | Organization | [facility] | | | and Dwayneana [...] Team Providers + +------+ + | Care Sewage Reticulation Drafting Officer Name | Role | Phone | [...] atherosclero | MD Yimi | [address] | | | | | sis of | [address] | [place], | | | | | unspecified | [place] | [place] | | | | | type of | [place], [place] | [address] | | | | | vessel, | [address] | Phone: | | | | | otoe[place] or | Phone: | [phone] | | | | | graft | [phone] | Fax: | | | | | Preoperative | Fax: | [phone] | | | | | | [phone] | | | | | | examination, [...] | | | | | | ST[place] | | | | | | | CV STRS TST | | | | | | | XERS&/OR RX | | | | | | | CONT ECG W/O | | | | | | | I&R [place] | | | | | | [...] atherosclero | MD Yimi | [address] | | | | | sis of | [address] | [place], | | | | | unspecified | [place] | [place] | | | | | type of | [place], [place] | [address] | | | | | vessel, | [address] | Phone: | | | | | otoe[place] or | Phone: | [phone] | | | | | graft | [phone] | Fax: | | | | | Preoperative | Fax: | [phone] | | | | | | [phone] | | | | | | examination, [...] | | | | | | STUD[place] | | | | | | | CV STRS TST | | | | | | | XERS&/OR RX | | | | | | | CONT ECG W/O | | | | | | | I&[place] | | | | | | [...] + + | 07/15/ | Hospital | [facility] | Bubba Maxwell | Pre-op exam; CAD | | 2014 | Encounter | MED CTR NUCLEAR | MD Yimi [address] | (coronary artery | | | | MEDICINE [address] | [address] [place] | disease) | | | | [address] [place], | [place] [address] | | | | | [place] [address] | [phone] | | | | | [phone] | | | +--------+ + + + [...] | Signed by: Rafael Maxwell MD PhD [facility] 07/15/2014, 12:40 | | + + + + + + | Narrative | Performed At | + + + | NUCLEAR MEDICINE STRESS TEST REPORT | [facility] | | Patient Name: Etelvina Benitez Study Date: 07/15/2014 Primary | [facility] | | Care Provider: Matt Kinney : | [facility] | | 1950 Age: 63 y.o. [...] [address] | [place] | [phone] | | [facility] | | [address] | | | - IMAGING | | | | + + + + + documented in this encounter Visit Diagnoses + + | Diagnosis | + + | Pre-op exam Preoperative examination, unspecified | + + | CAD (coronary artery disease) Coronary atherosclerosis of unspecified type of vessel, | | otoe-[place]ou[place] or graft | + + documented in this encounter"
--- OUTSIDE RECORDS SUMMARY | ~2019-03-02 | XMS | Encounter Summary ---
Demographics + + + | Address | [address] | | | [place] [address] | + + + | Home Phone | | + + + | Preferred Language | Unknown | + + + | Marital Status | Single | + + + | Adventism Affiliation | 1013 | + + + | Race | Unknown | + + + | Ethnic Group | Unknown | + + + Author + + + | Author | [facility] | | | and Dwayneana | + + + | Organization | [facility] | | | and [...] Team Providers + +------+ + | Care Chief Yeoman Name | Role | Phone | + [...] | | artery | MD Yimi | [address] [address] | | | | | disease, | [address] | | | | | angina | [place] | [address] | | | | | presence | [place], [place] | [place], [place] | | | | | unspecified, | [address] | [address] Phone: | | | | | unspecified | Phone: | [phone] | | | | | vessel or | [phone] | Fax: | | | | | lesion type, | Fax: | [phone] | | | | | unspecified | [phone] | | | | | | whether | | | | | | | [place] or | | | | | | [...] | patient would like to go to [place] instead of [place] | +--------+ + Encounter Details +--------+ + + + + | Date | Type | Department | Care Team | Description | +--------+ + + + + | 05/08/ | Telephone | [facility] | Bubba Maxwell | Other (patient would | | 2019 | | CARDIOLOGY [address] | MD Yimi [address] | like to go to | | | | [place], | [address] [place] | [place] instead of | | | | [place] [address] | [place] [address] | [place]) | | | | [phone] | [phone] | | | | | | | [...] whether | | | | | | [place] or | | | | | | [...] or lesion | | type, unspecified whether [place] or transplanted heart - Primary | + + | Mitral valve insufficiency, unspecified etiology | + + documented in this encounter"
--- OUTSIDE RECORDS SUMMARY | ~2019-03-02 | XMS | Encounter Summary ---
Demographics + + + | Address | [address] | | | [place] [address] | + + + | Home Phone | | + + + | Preferred Language | Unknown | + + + | Marital Status | Single | + + + | Congregational Affiliation | Unknown | + + + [...] Team Providers + +------+ + | Care Pattern Stamper Name | Role | Phone | + +------+ + | Margie Gonzalez PA-C PCP | | + +------+ + Encounter Details +--------+--------+ + + + | Date | Type | Department | Care Team | Description | +--------+--------+ + + + | 09/20/ | Travel | | | | | [...]
--- OUTSIDE RECORDS SUMMARY | ~2019-03-02 | XMS | Encounter Summary ---
Demographics + + + | Address | [address] | | | [place] [address] | + + + | Home Phone | | + + + | Preferred Language | Unknown | + + + | Marital Status | Single | + + + | Voodoo Affiliation | 1013 | + + + | Race | Unknown | + + + | Ethnic Group | Unknown | + + + Author + + + | Author | [facility] | | | and Dwayneana | + + + | Organization | [facility] | [...] Team Providers + +------+ + | Care Nutrition Educator Name | Role | Phone | + [...] Description | +--------+---------+ + + + | 08/28/ | Surgery | [facility] | Bubba Maxwell | CV LHC | | 2017 | | MED CTR CV INTRA OP | MD Yimi [address] | | | | | [address] | [address] [place] | | | | | [place] | [place] [address] | | | | | [address] | [phone] | | | | | [phone] | | | +--------+---------+ + + + [...]
--- OUTSIDE RECORDS SUMMARY | ~2019-03-02 | XMS | Encounter Summary ---
Demographics + + + | Address | [address] | | | [place] [address] | + + + | Home Phone [...] Author | [facility] | | | and Dwayneana | + + + | Organization | [facility] | | [...] Team Providers + +------+ + | Care Clin Application Specialist Name | Role | Phone | [...] + + | 07/23/ | Telephone | [facility] | Bubba Maxwell | Appointment | | 2014 | | CARDIOLOGY [address] | MD Yimi [address] | | | | | [place], | [address] [place] | | | | | [place] [address] | [place] [address] | | | | | [phone] | [phone] | | | | | | | [...]
--- OUTSIDE RECORDS SUMMARY | ~2019-03-02 | XMS | Encounter Summary ---
Demographics + + + | Address | [address] | | | [place] [address] | + + + | Home Phone | | + + + | Preferred Language | Unknown | + + + | Marital Status | Single | + + + | Yarsanism Affiliation | 1013 | + + + | Race | Unknown | + + + | Ethnic Group | Unknown | + + + Author + + + | Author | [facility] | | | and Dwayneana | + + + | Organization | [facility] | [...] Providers + +------+ + | Care Certified Master Locksmith Name | Role | Phone | + [...] of carotid | | | | [place], [place] | [address] [place] | artery without | | | | [address] | [place] [address] | mention of cerebral | | | | [phone] | [phone] | infarction (Primary | | | | [...]
--- OUTSIDE RECORDS SUMMARY | ~2019-03-02 | XMS | Encounter Summary ---
Demographics + + + | Address | [address] | | | [place] [address] | + + + | Home Phone | | + + + | Preferred Language | Unknown | + + + | Marital Status | Single | + + + | Mu-Ism Affiliation | Unknown | + + + | Race | White | + + + | Ethnic Group | Other Race | + + + Author + + + | Author | [facility] | + + + | Organization | [facility] | + + + | Address | Unknown | + + + | Phone | Unavailable | + + + Support + + +---------+ + | Name | Relationship | Address | Phone | + + +---------+ + | Karen Unknown | ECON | Unknown | | + + +---------+ + Care Team Providers + +------+ + | Care Sugar Sampler Name | Role | Phone | + [...] Hypoglycemia | | 2019 | | at [facility] | MD Ran | | | | | [address] | [address] | | | | | [place] Mailcode: | [place] Inf[place] [facility], | | | | | [id number] Physician's | [place] [address] | | | | | [place], | [phone] | | | | | [place] [address] | | | | | | [phone] | | | +--------+ + + + [...]
--- OUTSIDE RECORDS SUMMARY | ~2019-03-02 | XMS | Encounter Summary ---
Demographics + + + | Address | [address] | | | [place] [address] | + + + | Home Phone | | + + + | Preferred Language | Unknown | + + + | Marital Status | Single | + + + | Scientology Affiliation | 1013 | + + + | Race | Unknown | + + + | Ethnic Group | Unknown | + + + Author + + + | Author | [facility] | | | and Dwayneana | + + + | Organization | [facility] | | | and Dwayneana [...] Team Providers + +------+ + | Care Nursing Service Director Name | Role | Phone | [...] [address] | [address] [place], [place] | cervical (Primary | | | | [place], [place] | [address] | Dx); Neuropathy | | | | [address] | | | | | | [phone] | | | +--------+ + + + [...] + | MISCELLANEOUS LAB | | | [phone] | + +---------+ + + | MISCELANIOUS LAB | | | [phone] | + +---------+ + + documented in this encounter Visit Diagnoses + + | Diagnosis | + + | DDD (degenerative disc disease), cervical - Primary Degeneration of cervical | | intervertebral disc | + + | Neuropathy Mononeuritis of unspecified site | + + documented in this encounter"
--- OUTSIDE RECORDS SUMMARY | ~2019-03-02 | XMS | Encounter Summary ---
Demographics + + + | Address | [address] | | | [place] [address] | + + + | Home Phone [...] | Author | [facility] | | | and Dwayneana | + + + | Organization | [facility] | | [...] Team Providers + +------+ + | Care Tower Foreman Name | Role | Phone | + [...] PHYSIATRY [address] | MD [address] | | | | | [place], | [place], [place] | | | | | [place] [address] | [address] | | | | | [phone] | | | +--------+--------+ + + + [...]
--- OUTSIDE RECORDS SUMMARY | ~2019-03-02 | XMS | Encounter Summary ---
Demographics + + + | Address | [address] | | | [place] [address] | + + + | Home Phone [...] Author | [facility] | | | and Dwayneana | + + + | Organization | [facility] | | | and [...] Team Providers + +------+ + | Care Mortar Maker Name | Role | Phone | + [...] | +--------+ + + + + | 11/13/ | Hospital | [facility] | Bubba Maxwell | Abnormal heart rate; | | 2017 | Encounter | MED CTR CV INTRA OP | MD Yimi [address] | SOB (shortness of | | | | [address] | [address] [place] | breath); Coronary | | | | [place], [place] | [place] [address] | artery disease of | | | | [address] | [phone] | [place] artery of | | | | [phone] | | [place] heart with | | | | | | stable angina | | | | | | pectoris (HCC) | +--------+ + + + + Social [...] You can't be awakened Date Last Reviewed: 02/08/201619998208-9680 [employer]. [address] [place] [address], [place] [address]. All righ ts reserved. This information is [...] [address] | [place], [place] | [phone] | | [facility] | | [address] | | | - LABORATORY | | [...] | OF PROCEDURE: 11/13/2017 | | | CURRICULUM WRITER: Bubba Maxwell MD, PhD, [facility] PROCEDURES | | | PERFORMED:Coronary AngiographyLeft Heart [...] |CC TO PRIMARY CARE PROVIDER: | | |Margie K Gonzalez, [place] | | | | | + + [...] [address] | [place] | [phone] | | [facility] | | [address] | | | - LABORATORY | | | | + + + + + documented in this encounter Visit Diagnoses + + | Diagnosis | + + | Abnormal heart rate | + + | SOB (shortness of breath) Shortness of breath | + + | Coronary artery disease of [place] artery of [place] heart with stable angina pectoris | | (HCC) | + + documented in this encounter Administered Medications + +--------+---------+------+------+------+ [...] PRN, | | | Chest pain, Starting Sun11/13/17 | | | at 0928, May give [...] PRN, Nausea, | | | Vomiting, Starting Sun11/13/17 at | | | 0928, Post-op/Phase II | | + +---+ | | | + +---+ | sodium chloride 0.9% (NS) | | | infusion at 125 mL/hr, | | | Intravenous, CONTINUOUS, Starting | | | Sun11/13/17 at 0745, For | | | procedure only, not to exceed 1 | | | liter., Pre-op | | + +---+ | | | + +---+ documented in this encounter
--- OUTSIDE RECORDS SUMMARY | ~2019-03-02 | XMS | Encounter Summary ---
Demographics + + + | Address | [address] | | | [place] [address] | + + + | Home Phone [...] + | Author | [facility] | | | and Dwayneana | + + + | Organization | [facility] | [...] Providers + +------+ + | Care Manager Performance Name | Role | Phone | + +------+ + | Matt Kinney MD | PCP | | + +------+ + Encounter Details +--------+ + + + + | Date | Type | Department | Care Team | Description | +--------+ + + + + | 07/15/ | Hospital | [facility] | Bubba Maxwell | CAD (coronary artery | | 2015 | Encounter | MED CTR LABORATORY | MD Yimi [address] | disease); Pre-op | | | | [address] [place] | [address] [place] | evaluation | | | | [place], [place] | [place] [address] | | | | | [address] | [phone] | | | | | [phone] | | | +--------+ + + + [...] at | | | | | | ([email or web address]).Testing | | | | | | Performed: [facility], [address] | | | | [address], [place], [place] | | | | | | [address] | | | | + + + [...] [address] | [place] [address] | [phone] | + + + + + documented in this encounter Visit Diagnoses + + | Diagnosis | + + | CAD (coronary artery disease) Coronary atherosclerosis of unspecified type of vessel, | | [place] or graft | + + | Pre-op evaluation Preoperative examination, unspecified | + + documented in this encounter"
--- OUTSIDE RECORDS SUMMARY | ~2019-03-02 | XMS | Encounter Summary ---
Demographics + + + | Address | [address] | | | [place] [address] | + + + | Home Phone [...] + + | Author | [facility] | | | and Dwayneana | + + + | Organization | [facility] | | | and Dwayneana [...] Team Providers + +------+ + | Care Sales Consulting Director Name | Role | Phone | [...] + + | 11/13/ | Hospital | [facility] | Bubba Maxwell | Abnormal heart rate; | | 2017 | Encounter | MED CTR CV INTRA OP | MD Yimi [address] | SOB (shortness of | | | | [address] | [address] [place] | breath); Coronary | | | | [place], [place] | [place] [address] | artery disease of | | | | [address] | [phone] | red devil artery of | | | | [phone] | | red devil heart with | | | | | [...] You can't be awakened Date Last Reviewed: 02/08/201619990385-4110 [employer]. [address] [place] [address], [place] [address]. All righ ts reserved. This information is [...] [address] | [place], [place] | [phone] | | [facility] | | [address] | | | - LABORATORY | | [...] | OF PROCEDURE: 11/13/2017 | | | HAMMER SHOP SUPERVISOR: Bubba Maxwell MD, PhD, [facility] PROCEDURES | | | PERFORMED:Coronary AngiographyLeft [...] 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
--- OUTSIDE RECORDS SUMMARY | ~2019-03-02 | XMS | Encounter Summary ---
Demographics + + + | Address | [address] | | | [place] [address] | + + + | Home Phone | | + + + | Preferred Language | Unknown | + + + | Marital Status | Single | + + + | Caodaism Affiliation | 1013 | + + + | Race | Unknown | + + + | Ethnic Group | Unknown | + + + Author + + + | Author | [facility] | | | and Dwayneana | + + + | Organization | [facility] | | | and Dwayneana [...] Team Providers + +------+ + | Care Geothermal Electrical Engineer Name | Role | Phone | [...] | Mitral | Bubba | [address] | | | | | valve | MD Yimi | [place], | | | | | insufficienc | [address] | [place] | | | | | y, | St [place] | [address] | | | | | unspecified | [place], [place] | Phone: | | | | | etiology | [address] | [phone] | | | | | Procedures | Phone: | Fax: | | | | | ECHO | [phone] | [phone] | | | | | Transesophag | Fax: | | | | | | eal (BELKIS) | [phone] | | | | | | MN ECHO | | | | | | | TRANSESOPHAG | | | | | | | R-T 2D | | | | | | | W/PRB IMG | | | | | | | ACQUISJ I&R | | | | | | | MN DOPPLER | | | | | | | ECHO | | | | | | | HEART,COMPLE | | | | | | | TE MN | | | | | | [...] + + | 12/25/ | Hospital | [facility] | Bubba Ornelas | Mitral valve | | 2018 | Encounter | MED CTR CV INTRA OP | MD Yimi [address] | insufficiency, | | | | [address] | [address] [place] | unspecified etiology | | | | [place] | [place] [address] | | | | | [address] | [phone] | | | | | [phone] | | | +--------+ + + + [...] (BELKIS) Demographics Patient | | | Name [facility] Room Number M CARDIO MULU | | | LAB ROSALIE | | | POOL Patient Number [id number] Date of Study | | | 12/25/2017 Visit Number [id number] Accession | | | [id number] Interpreting YIMI ORNELAS MD Number | | | Physician Date of 1950 | | | Referring YIMI ORNELAS MD | | | Physician Age 67 | | | year(s) Data Technician LIZETH SUMNER [facility] Gender | | | Female Nurse | | | Stress Certified Personal Finance Counselor Procedure Type of Study BELKIS | | [...] [facility] | | [facility] LAB ROSALIE ATLANTA Patient Number | | [id number] Date of Study 12/25/2017 Visit Number [id number] Accession | | [id number] Interpreting YIMI ORNELAS MD Number | | Physician Date of 1950 Referring YIMI ORNELAS MD | | Physician Age 67 year(s) Data Technician LIZETH | | BIANCA SUMNER Gender Female [...] [address] | [place] | [phone] | | [facility] | | [address] | | | - LABORATORY | | [...] | | | | FERNANDO EASTMAN MD ([id number]) | | | | | | on [...]
--- OUTSIDE RECORDS SUMMARY | ~2019-03-02 | XMS | Encounter Summary ---
Demographics + + + | Address | [address] | | | [place] [address] | + + + | Home Phone [...] + + + | Author | [facility] | | | and Dwayneana | + + + | Organization | [facility] [...] Team Providers + +------+ + | Care Steam Hoist Operator Name | Role | Phone | [...] | | | | | | | [place] CATH | | | | | | [...] + + | 07/28/ | Hospital | [facility] | Bubba Maxwell | Coronary artery | | 2014 | Encounter | MED CTR CV INTRA OP | MD Yimi [address] | disease involving | | | | [address] | [address] [place] | comanche coronary | | | | [place], [place] | [place] [address] | artery without | | | | [address] | [phone] | angina pectoris | | | | [phone] | | (Primary Dx); CAD | | [...] You have a fever over 101F (38.3C). [id number] [employer] [address] [place] [address], [place] [address]. All righ ts reserved. This information is [...] RECORD NUMBER: | MEDICAL CENTER | | [id number] DATE OF PROCEDURE: 07/28/2014 RECORDING STUDIO INTERN: | - IMAGING | | Bubba Maxwell MD, PhD, [facility] PROCEDURES | | | PERFORMED: Coronary Angiography [...] + | [facility] [facility] | [address] | [place], [place] | [phone] | | [facility] | | [address] | | | - IMAGING | | [...] mL/min/1.73m2 | [facility] | | | ANGUILLAN | RATE,ESTIMATED | | MEDICAL | | | | mL/min/1.76l2Zjro than | | CENTER - | | [...] + | [facility] | [address] | [place], [place] | [phone] | | [facility] | | [address] | | | - LABORATORY | | [...] [address] | [place] | [phone] | | [facility] | | [address] | | | - LABORATORY | | | | + + + + + documented in this encounter Visit Diagnoses + + | Diagnosis | + + | Coronary artery disease involving comanche coronary artery without angina pectoris - | | Primary | + + | CAD (coronary artery disease) Coronary atherosclerosis of unspecified type of vessel, | | comanche or graft | + + documented in [...]
--- OUTSIDE RECORDS SUMMARY | ~2019-03-02 | XMS | Encounter Summary ---
Demographics + + + | Address | [address] | | | [place] [address] | + + + | Home Phone | | + + + | Preferred Language | Unknown | + + + | Marital Status | Single | + + + | Christian Affiliation | Unknown | + + + [...] Team Providers + +------+ + | Care Personal Fitness Trainer Name | Role | Phone | + [...]
--- OUTSIDE RECORDS SUMMARY | ~2019-03-02 | XMS | Encounter Summary ---
Demographics + + + | Address | [address] | | | [place] [address] | + + + | Home Phone | | + + + | Preferred Language | Unknown | + + + | Marital Status | Single | + + + | Anabaptism Affiliation | Unknown | + + + | Race | White | + + + | Ethnic Group | Other Race | + + + Author + + + | Author | [facility] | + + + | Organization | [facility] | + + + | Address | Unknown | + + + | Phone | Unavailable | + + + Support + + +---------+ + | Name | Relationship | Address | Phone | + + +---------+ + | Karen Unknown | ECON | Unknown | | + + +---------+ + Care Team Providers + +------+ + | Care Check Writer Name | Role | Phone | + +------+ + | Margie Gonzalez PA-C | PCP | | + +------+ + Reason for Visit + + + | Reason | Comments | + + + | Diabetes mellitus | | | type 2 | | + + + | Hypoglycemia | | + + + Encounter Details +--------+ + + + + | Date | Type | Department | Care Team | Description | +--------+ + + + + | 09/24/ | [facility] | General Internal | Rosa Orozco, | Diabetes mellitus | | 2019 | Visit | Medicine at Offsite | [place] [address] | type 2; Hypoglycemia | | | | [address] | Edward [address] | | | | | Lazara Infante Mailcode: | [place], [place] | | | | | [id number] [place], [place] | [address] | | | | | [address] | [phone] | | | | | [phone] | | | +--------+ + + + [...] this encounter Progress Rosa Oliveira PA - 09/24/2018 1:00 PM PDTFormatting of this note might be different jarvis maradiaga the original. [facility] Follow-Up: Jose Benitez is a 67 y.o. female with a PMHx significant forCAD, Mitral valve insuff iciency,HFrEF, PAD, cerebrovascular disease (?), tobacco abuse,hypothyroidism, htn,q uiescent sarcoidosis, peripheralneuropathy, DM2,dysphagia, falls,and depression/anxiet gowdin Todd is seen today for follow-up DM2 management and encephalopathy. DM2 - 1 hypoglycemic event in the last week. On 09/22 she became diaphoretic and dizzy and he r CBG was noted to be 66. She said she doesn't exactly recall but she thinks she didn't eat much of her dinner (RN reports 70% of meal consumed per documentation). She has otherwise fe lt well in regards to having less frequent hypoglycemic events. She does state she doesn't b elieve she can keep up with a QID insulin regimen, especially upon return to work, she doesn 't believe she will keep up with this. She would prefer a pill if able. ENCEPHALOPATHY - no further visual hallucinations, now only auditory hallucinations per her report. She now only hears a constant buzzing. She says her cognition feels as though it is improving, although still not quite back to baseline. Patient's Medications New Prescriptions No medications on file Previous Medications ACETAMINOPHEN 500 MG ORAL TABLET Take 500 mg by mouth every eight hours. ASPIRIN EC 81 MG ORAL TABLET,DELAYED RELEASE (DR/EC) Take 1 tablet by mouth once daily. ATORVASTATIN 10 MG ORAL TABLET Take 1 tablet by mouth once daily. CARVEDILOL 12.5 MG ORAL TABLET Take 1 tablet by mouth two times daily. Administer with food. hold dose if BPs <105, HR <50 DIETARY SUPPLEMENT ORAL Take 120 mL by mouth two times daily. DULOXETINE 60 MG ORAL CAPSULE,DELAYED RELEASE(DR/EC) Take 1 capsule by mouth once daily . FUROSEMIDE 40 MG ORAL TABLET Take 40 mg by mouth once daily. INSULIN GLARGINE U-300 CONC (TOUJEO SOLOSTAR U-300 INSULIN) 300 UNIT/ML (1.5 ML) SUBCUTANE OUS INSULIN PEN 16 Units by Intramuscular/Subcutaneous route once daily at bedtime. INSULIN LISPRO (HUMALOG U-100 INSULIN) 100 UNIT/ML SUBCUTANEOUS SOLUTION Inject 2-6 Uni ts under the skin (SUBC) three times daily as needed. CBG <200: 0 units; 200-260: 1U; 261-32 0: 2U; 321-380: 3U; 381-440: 4U Call provider if CBG >440 Do NOT use sliding scale at HS. LEVOTHYROXINE 100 MCG ORAL TABLET Take 100 mcg by mouth once daily. LIDOCAINE 5 % TOPICAL ADHESIVE PATCH,MEDICATED Apply 1-2 patches to skin once daily as needed. Apply patch to chest wall. On for 12 hours in any 24-hour period. LOSARTAN 50 MG ORAL TABLET Take 50 mg by mouth once daily. hold for BPsys < 105 MELATONIN 3 MG ORAL TABLET Take by mouth once daily at bedtime as needed. METFORMIN 500 MG ORAL TABLET Take 500 mg by mouth two times daily. MULTIVITAMIN ORAL TABLET Take 1 tablet by mouth once daily. OMEPRAZOLE 20 MG ORAL CAPSULE,DELAYED RELEASE(DR/EC) Take 20 mg by mouth once daily. POTASSIUM CHLORIDE SR 20 MEQ ORAL TABLET,ER PARTICLES/CRYSTALS Take 20 mEq by mouth onc e daily. Modified Medications Modified Medication Previous Medication FERROUS SULFATE 325 MG TOTAL SALT (65 MG ELEMENTAL) ORAL TABLET ferrous sulfate 325 mg tot al salt (65 mg elemental) oral tablet Take 1 tablet by mouth once daily. Take 1 tablet by mouth two times daily. INSULIN LISPRO (HUMALOG U-100 INSULIN) 100 UNIT/ML SUBCUTANEOUS SOLUTION insulin lispro (H UMALOG U-100 INSULIN) 100 unit/mL subcutaneous solution Inject 2 Units under the skin (SUBC) three times daily before meals. Give 10-15 min bef ore eating. HOLD if patient NOT eating or CBG<120 Inject 2 Units under the skin (SUBC) th ree times daily before meals. Give 10-15 min before eating. HOLD if patient NOT eating or CB G<100 Discontinued Medications RIFAXIMIN 550 MG ORAL TABLET Take 1 tablet by mouth two times daily. Allergies Allergen Reactions Oxycodone Pruritus Oxycontin intolarant: Oxycodone tolerates. Oxycontin intolarant: Oxycodone tolerates. Physical Exam: Vitals: 09/24/18 1045 BP: 144/62 Pulse: 66 Resp: 16 Temp: 36.5 C (97.7 F) Weight: 53.8 kg (118 lb 9.6 oz) Wt Readings from Last 3 Encounters: 09/24/18 53.8 kg (118 lb 9.6 oz) 09/19/18 55.6 kg (122 lb 9.6 oz) 09/17/18 55.2 kg (121 lb 12.8 oz) General: No acute distress, pt is a 67 y.o. female appearing stated age Mental Status: Alert and oriented HEENT: No scleral icterus or conjunctival hemorrhage. Heart: Normal rate and regular rhythm without murmur, rub or gallop Lungs: Normal respiratory effort on RA. Clear to auscultation bilaterally, no wheezes, ral es or rhonchi Abdomen: NABS throughout, Soft, non tender, no rebound or guarding. Extremities: no pitting edema, no clubbing, or cyanosis. Skin: Warm, dry, well perfused, Neuro: No gross focal CN deficits appreciated, good attention and recall Psych: cheerful, smiling Outside labs 09/18 --> 09/20 AST 43 --> 41 ALT 61--> 51 Alk Phos 183 --> 157 TBili 0.7 --> 0.6 Ammonia 35 Assessment and Plan: (E11.69, Z79.4) Type 2 diabetes mellitus with other specified complication, with long-term current use of insulin ([facility]) (primary encounter diagnosis) (E16.2) Hypoglycemia Hx of frequent severe hypoglycemia on home regimen prior to hospitalization and was therefo re not giving herself her basal insulin or overcompensating with high intake of sweets to av oid lows. D/c'd from hospital on home regimen and had repeated CBGs in low 40s. Insulin adju sted and CBGs now much improved, meeting goal 100-200s, no further life threatening hypoglyc emic events. 1 hypoglycemic event in last week, CBG 66. Good trends of HS --> AM fasting sin ce reduction of basal insulin last week. - given frailty, lenient CBG goals 100 to ~250s at this time - continue metformin 500mg BID (home dose) - continue Glargine (toujeo) 16U daily in PM - Lispro 2U with meals, change parameters: hold if patient not eating or if CBG <120 - Lispro SSI 1U for CBG 200-260, 2U for 261-320, 3U for 321-380, 4U for 381-440 - CBG before meals TID and HS - Add meal supplement 120mL BID, increase to TID if tolerated - Continue to Give snack if HS CBG <150 - Will inquire with insurance, RE coverage for SGLT2, as patient reports she will likely no t be able to keep up with the prandial insulin regimen once discharged (K72.90) Hepatic encephalopathy (HCC) (G93.41) Acute metabolic encephalopathy Resolving, improvements seen each week, good attention and recall. No further complex hallu cinations. Ongoing auditory complaints either resolving auditory hallucination or tinnitus. Will continue to monitor. LFTs improved and Ammonia now WNL. Patient placed on rifaximin and lactulose during hospitalization, will d/c rifaximin (also insurance will not cover, cost i s $1400). - d/c rifaximin - continue to monitor (R13.10) Dysphagia Patient reports she is on 1:1, will inquire with [facility] to see if she can be cleared for eatin g independently. 30 min spent face to face with patient, >50% spent in counseling. Rosa Orozco PA-C [facility] Division of Internal Medicine and Geriatrics documented in this en counter Plan of Treatment Not on filedocumented as of this encounter Visit Diagnoses + + | Diagnosis | + + | Type 2 diabetes mellitus with other specified complication, with long-term current use | | of insulin (HCC) - Primary | + + | Hypoglycemia Hypoglycemia, unspecified | + + | Hepatic encephalopathy (HCC) Hepatic encephalopathy | + + | Acute metabolic encephalopathy | + + | Dysphagia, unspecified type | + + documented in this encounter"
--- OUTSIDE RECORDS SUMMARY | ~2019-03-02 | XMS | Encounter Summary ---
Demographics + + + | Address | [address] | | | [place] [address] | + + + | Home Phone | | + + + | Preferred Language | Unknown | + + + | Marital Status | Single | + + + | Sabianism Affiliation | 1013 | + + + | Race | Unknown | + + + | Ethnic Group | Unknown | + + + Author + + + | Author | [facility] | | | and Dwayneana | + + + | Organization | [facility] | | [...] Team Providers + +------+ + | Care Pipe Stress Engineer Name | Role | Phone | [...] Joseph Aranda | Medication Refill | | 2019 | | PULMONARY [address] | MD [address] | | | | | [place], | [place] | | | | | [place] [address] | [place] [address] | | | | | [phone] | [phone] | | | | | | | [...]
--- OUTSIDE RECORDS SUMMARY | ~2019-03-02 | XMS | Encounter Summary ---
Demographics + + + | Address | [address] | | | [place] [address] | + + + | Home Phone [...] | Author | [facility] | | | and Dwayneana | + + + | Organization | [facility] | | | [...] Team Providers + +------+ + | Care Dye Weigher Helper Name | Role | Phone | [...] | | | | | [address] | [address] [place] | | | | | [place] | [place] [address] | | | | | [address] | [phone] | | | | | [phone] | | | +--------+---------+ + + + [...] (BELKIS) Demographics Patient | | | Name [facility] Room Number [facility] | | | FLIP WIGGINS | | | SHAE Patient Number [id number] Date of Study | | | 12/25/2017 Visit Number [id number] Accession | | | [id number] Interpreting YIMI ORNELAS MD Number | | | Physician Date of 1950 | | | Referring YIMI ORNELAS MD | | | Physician Age 67 | | | year(s) Equipment Engineering Technician LIZETH SUMNER [facility] Gender | | | Female Nurse | | | Stress Glazing Machine Operator Procedure Type of Study BELKIS | | [...] LAB ROSALIE KAUFMAN Patient Number | | [id number] Date of Study 12/25/2017 Visit Number [id number] Accession | | [id number] Interpreting YIMI ORNELAS MD Number | | Physician Date of 1950 Referring YIMI ORNELAS MD | | Physician Age 67 year(s) Equipment Engineering Technician LIZETH | | BIANCA SUMNER Gender [...] [address] | [place] | [phone] | | [facility] | | [address] | | | - LABORATORY | | [...] | | | | FERNANDO EASTMAN MD ([id number]) | | | | | | on [...]
--- OUTSIDE RECORDS SUMMARY | ~2019-03-02 | XMS | Encounter Summary ---
Demographics + + + | Address | [address] | | | [place] [address] | + + + | Home Phone [...] Author | [facility] | | | and Dwayneana | + + + | Organization | [facility] | | | and Dwayneana [...] Providers + +------+ + | Care Manager Action Name | Role | Phone | + +------+ + | Matt Kinney MD | PCP | | + +------+ + Encounter Details +--------+ + + + + | Date | Type | Department | Care Team | Description | +--------+ + + + + | 03/04/ | Orders Only | [facility] [place] | [facility] | Lumbosacral | | 2013 | | NEUROSURGERY [address] | T, MD [address] | spondylosis without | | | | [address] | [address] [place] | myelopathy (Primary | | | | [place], [place] | [address] | Dx) | | | | [address] | | | | | | [phone] | | | +--------+ + + + [...] Bilateral Lumbar Facet Steroid Injections Diagnosis: | BABAR | | Lumbar Spondylosis ICD-9 Code 721.3 Etelvina Jean [facility] | [facility] | | presents to the fluoroscopy suite for fluoroscopically-guided | MEDICAL ROSIE | | bilateral L4-L5 and L5-S1 facet [...] Steroid InjectionsDiagnosis: Lumbar SpondylosisICD-9 Code 721.3Deborah Miranda Pulse | | presents to the fluoroscopy suite [...] [address] | [place] | [phone] | | [facility] | | [address] | | | - IMAGING | | | | + + + + + documented in this encounter Visit Diagnoses + + | Diagnosis | + + | Lumbosacral spondylosis without myelopathy - Primary | + + documented in this encounter"
--- OUTSIDE RECORDS SUMMARY | ~2019-03-02 | XMS | Encounter Summary ---
Demographics + + + | Address | [address] | | | [place] [address] | + + + | Home Phone | | + + + | Preferred Language | Unknown | + + + | Marital Status | Single | + + + | Hinduism Affiliation | 1013 | + + + | Race | Unknown | + + + | Ethnic Group | Unknown | + + + Author + + + | Author | [facility] | | | and Dwayneana | + + + | Organization | [facility] [...] Providers + +------+ + | Care Machine Strap Buckler Name | Role | Phone | + [...] Pre-op exam | Bubba | [address] | | | | | CAD | MD Yimi | Placer, | | | | | (coronary | [address] | [place] | | | | | artery | St [place] | [address] | | | | | disease) | [place], [place] | Phone: | | | | | Procedures | [address] | [phone] | | | | | ECHO | Phone: | Fax: | | | | | Complete [place] | [phone] | [phone] | | | | | ECHO HEART | Fax: | | | | | | [place] | [phone] | | | | | | [address] | | | | | | | [place] | | | | | | | [...] Pre-op exam | Bubba | [address] | | | | | CAD | MD Yimi | Placer, | | | | | (coronary | [address] | [place] | | | | | artery | [place] | [address] | | | | | disease) | [place], [place] | Phone: | | | | | Procedures | [address] | [phone] | | | | | ECHO | Phone: | Fax: | | | | | Complete [place] | [phone] | [phone] | | | | | ECHO HEART | Fax: | | | | | | [place] | [phone] | | | | | | [address] | | | | | | | [place] | | | | | | | [...] + + | 07/15/ | Hospital | [facility] | Bubba Maxwell | Pre-op exam; CAD | | 2014 | Encounter | [facility] ECHO [address] | MD Yimi [address] | (coronary artery | | | | [address] [place] | [address] [place] | disease) | | | | [place] [address] | [place] [address] | | | | | [phone] | [phone] | | | | | | | | | | | | David Dudley | | | | | | Jr. [...] Performed At | + + + | [facility] ECH[facility]PORT | THIDA | | STUDY DATE: 07/15/2014 PATIENT NAME: Etelvina Jean Pulse : | [facility] | | 1950 PCP: Matt Kinney [facility] | | HISTORY/DIAGNOSIS: CAD, preop evaluation [...] PhD FACC | | | 07/15/2014 12:21 Artificial Flower Maker: David Dudley RDMS | | + + + + + + + + | Performing | Address | City/State/Zipcode | Phone Number | | Organization | | | | + + + + + | [facility] | [address] | [place] | [phone] | | [facility] | | [address] | | | - IMAGING | | [...] of unspecified type of vessel, | | [place] or graft | + + documented in this encounter"
--- OUTSIDE RECORDS SUMMARY | ~2019-03-02 | XMS | Encounter Summary ---
Demographics + + + | Address | [address] | | | [place] [address] | + + + | Home Phone | | + + + | Preferred Language | Unknown | + + + | Marital Status | Single | + + + | Anglican Affiliation | 1013 | + + + | Race | Unknown | + + + | Ethnic Group | Unknown | + + + Author + + + | Author | [facility] | | | and Dwayneana | + + + | Organization | [facility] | | [...] Team Providers + +------+ + | Care Retail Pharmacy Manager Name | Role | Phone | [...] of carotid | | | | [place], [place] | [address] [place] | artery without | | | | [address] | [place] [address] | mention of cerebral | | | | [phone] | [phone] | infarction (Primary | | | | [...]
--- OUTSIDE RECORDS SUMMARY | ~2019-03-02 | XMS | Encounter Summary ---
Demographics + + + | Address | [address] | | | [place] [address] | + + + | Home Phone | | + + + | Preferred Language | Unknown | + + + | Marital Status | Single | + + + | Christian Affiliation | 1013 | + + + | Race | Unknown | + + + | Ethnic Group | Unknown | + + + Author + + + | Author | [facility] | | | and Dwayneana | + + + | Organization | [facility] | | [...] Team Providers + +------+ + | Care Saw Handle Assembler Name | Role | Phone | + [...] + + | 07/15/ | Telephone | [facility] | Bubba Maxwell | Appointment | | 2014 | | CARDIOLOGY [address] | MD Yimi [address] | | | | | [place], | [address] [place] | | | | | [place] [address] | [place] [address] | | | | | [phone] | [phone] | | | | | | | [...]
--- OUTSIDE RECORDS SUMMARY | ~2019-03-02 | XMS | Encounter Summary ---
Demographics + + + | Address | [address] | | | [place] [address] | + + + | Home Phone | | + + + | Preferred Language | Unknown | + + + | Marital Status | Single | + + + | Latter-Day Affiliation | 1013 | + + + | Race | Unknown | + + + | Ethnic Group | Unknown | + + + Author + + + | Author | [facility] | | | and Dwayneana | + + + | Organization | [facility] | | [...] Team Providers + +------+ + | Care Hair Assistant Name | Role | Phone | [...] | | | | | Lumbosacral | [place], | [address] | | | | | spondylosis | Javon Bautista MD | [place], | | | | | without | [address] | [place] | | | | | myelopathy | [place] | [address] | | | | | Procedures | [place], [place] | Phone: | | | | | CO INJ | [address] | [phone] | | | | | DX/THER AGNT | Phone: | Fax: | | | | | PARAVERT | [phone] | [phone] | | | | | FACET JOINT, | Fax: | | | | | | LUMBAR/SAC, | [phone] | | | | | | 1ST LEVEL | | | | | | | CO INJ | | | | | | | DX/THER AGNT | | | | | | | PARAVERT | | | | | | | FACET JOINT, | | | | | | | LUMBAR/SAC, | | | | | | | 2ND LEVEL | | | | | | | CO | | | | | | [...] + + + + | 03/11/ | [facility] | [facility] | Javon Ivy | Lumbosacral | | 2013 | Encounter | MED CTR XRAY [address] | T, [address] | spondylosis without | | | | [place] | [place], [place] | myelopathy | | | | [place] [address] | [address] | | | | | [phone] | | | | | | | Heat Treater Head Wsashwini | | +--------+ + + + + [...] Bilateral Lumbar Facet Steroid Injections Diagnosis: | [place] | | Lumbar Spondylosis ICD-9 Code 721.3 Etelvina Jean Pulse | [facility] | | presents to the fluoroscopy suite for fluoroscopically-guided [facility] | | bilateral L4-L5 and L5-S1 facet [...] [address] | [place] | [phone] | | [facility] | | [address] | | | - IMAGING | | [...] 4:00 | | | | | ONCE, Sun03/11/14 at 1615, For 1 | | PM [...] PST | | | | | ONCE, Sun03/11/14 at 1615, For 1 | | | | | | | dose, Shake well. Not for IV | | | | | | | use., | | | | | | + +-------+ +-------+---+---+ +---+---+ | | | +---+---+ documented in this encounter"
--- OUTSIDE RECORDS SUMMARY | ~2019-03-02 | XMS | Encounter Summary ---
Demographics + + + | Address | [address] | | | [place] [address] | + + + | Home Phone [...] | [facility] | | | and Dwayneana | + + + | Organization | [facility] | [...] Team Providers + +------+ + | Care Standards Engineer Name | Role | Phone | [...] | Specialty | Physical | Diagnoses | Jair, | | | | Services | Therapy | Lumbalgia | Gael Ni MD | | | | Required | | Lumbar | [address] | | | | | | radiculopath | [address] | | | | | | y Lumbar | [place], | | | | | | degenerative | [place] [address] | | | | | | disc | Phone: | | | | | | disease | [phone] | | | | | | Lumbar facet | Fax: | | | | | | arthropathy | [phone] | | +--------+ + + + + + Reason for Visit Evaluate & Treat (Routine) +--------+--------+ + + + + | Status | Reason | Specialty | Diagnoses / | Referred By | Referred To | | | | | Procedures | Contact | Contact | +--------+--------+ + + + + | Closed | | Physical | Diagnoses | Sitz, | Gael Adam | | | | Medicine and | Low back | Matt Ni MD [address] | | | | Rehabilitatio | pain | MD Pranav | [address] | | | | n | radiating to | [address] | [place], | | | | | both legs | [place] | [place] [address] | | | | | | [address] | Phone: | | | | | | [place], | [phone] | | | | | | [place] | Fax: | | | | | | [address] | [phone] | | | | | | Phone: | | | | | | | [phone] | | | | | | | Fax: | | | | | | | [phone] | | +--------+--------+ + + + + Encounter Details +--------+---------+ + + + | Date | Type | Department | Care Team | Description | +--------+---------+ + + + | 08/07/ | Office | [facility] | Gael Adam, | Lumbalgia (Primary | | 2013 | Visit | MEDICINE | [address] | Dx); Lumbar | | | | REHABILITATION [address] | [place] | radiculopathy; | | | | [address] [place] | [address] | Lumbar degenerative | | | | [place] [address] | | disc disease; Lumbar | | | | [phone] | | facet arthropathy; | | | | | | Tobacco dependence | +--------+---------+ + + + Social [...] + + + | Blood Pressure | 128/70 | 08/07/2013 11:13 AM | | | | | PDT | | + + + + + | Pulse | 106 | 08/07/2013 11:13 AM | | | | | PDT | | + + + + + | Temperature | - | - | | + + + + + | Respiratory Rate | 18 | 08/07/2013 11:13 AM | | | | | PDT | | + + + + + | Oxygen Saturation | - | - | | + + + + + | Inhaled Oxygen | - | - | | | Concentration | | | | + + + + + | Weight | 65.3 kg (144 lb) | 08/07/2013 11:13 AM | | | | | PDT | | + + + + + | Height | 165.1 cm (5' 5") | 08/07/2013 11:13 AM | | | | | PDT | | + + + + + | Body Mass Index | 23.96 | 08/07/2013 11:13 AM | | | | | PDT | | + + + + + documented in this encounter Patient Instructions Patient Instructions Gael Adam MD - 08/07/2013 12:11 PM PDTPlease attend the injecti on appointment with Javon Ivy MD. If his office has not contacted you within one wee k, to schedule the injection, please contact my clinic. Your injection will be performed at [facility]. Please take note of weather your pain is si gnificantly reduced in the hours immediately following the injection. Physical therapy has been prescribed. Please participate in physical therapy. If you have not be contacted for an appointment with physical therapy within one week, please contact t hair clinic. Once you have completed physical therapy please continue the home exercise progr am as outline by physical therapy, indefinitely. Please take the prescribed medication Gabapentin. Taper up the dose of the medication as di rected. Stop tapering up the medication at the lowest effective dose. If you have side eff ects to the medication, reduce the dose of the medication to the last dose that you were abl e to tolerate without side effects. X-rays have been requested. Please go to the x-ray department after your appointment to co mplete these x-rays. The results of your x-rays will be reviewed at your next appointment. If your x-rays demonstrate any emergent results, the clinic will contact you. It is recommended that you stop smoking as discussed during today's visit. Return to the clinic in 5-6 weeks. documented in this encounter Progress Notes Gael Adam MD - 08/07/2013 12:45 PM PDTThis office note has been dictated. Job ID# [id number] signed by Gael Adam MD at 08/07/2013 12:45 PM Mildred Dutta RN - 08/07/2013 11:15 AM PDTPatient states pain to back for 10 year that has become worse in the last 2 years. States 5/10 pain at this time. Gael Pickard MD - 08/07/2013 12:00 AM [facility] [address] [place] [address] FAX: [phone] OFFICE VISIT CONSULT REQUESTED BY: Matt Kinney MD DATE OF SERVICE: 08/07/2013 PATIENT IDENTIFICATION: A 62-year-old female with chronic low back pain that radiates into lower extremities. HISTORY OF PRESENT ILLNESS: Ms. Benitez indicates that she has had an insidious onset of back pain over the years. She indicates that it has been much worse over the last 2 years. She indicates that she has had previous evaluation at a spine center in [place]. She indicates th at she previously was planning on surgery on her back, but did not go through with the surg anshul because of financial concerns. She indicates that the surgery center was out of her [facility], so she decided not to have surgery at that time. This was several years ago . She has had physical therapy for her back in the past. Last physical therapy was 2 to 3 y ears ago. She has never had any interventional injections. She indicates that she tried Lyr ica in the past which she tolerated well and it did seem to offer her some back pain relief . She indicates that with sitting in the clinic her current pain level is a 2/10 on a numer ical pain scale. She indicates that when she first stands up, her pain is rather severe, 10 /10. She indicates that after a short period of walking, her back pain and stiffness seems to ease up a bit and the pain reduces to a 6/10 on a numerical pain scale. She indicates th at she if ambulates or walks for too long that the pain will gradually increase and get wor se over time. She indicates the pain is most increased by sitting for a long period of time and then getting up and trying to walk. She indicates that her pain is reduced in the seat ed position. She indicates that her pain is sharp in quality. She indicates the pain is wor se in the legs and the pain is in the back. She indicates the pain is worse in the left leg compared to the right. She has numbness in both feet, which she attributes to a diagnosis of diabetes. She indicates that the numbness comes up to the proximal forelegs bilaterally. She indicates that she has not had any problems with bowel or bladder incontinence. She de nies saddle anesthesia. She indicates that 2 to 3 years ago she had left foot drop that got better over time. She indicates in the left lower extremity, she has pain that travels fro m the low back over the left buttock, the lateral hip and into the entire thigh and then th e anterior lateral foreleg and into the top of the foot. She indicates in the right lower e xtremity that she has pain over the lateral hip and thigh, but that does not travel into th e calf or foot. She has tried ibuprofen with some minimal benefit. She had acupuncture in t he past, which was helpful for her headaches but not necessarily her back. She has not had sub acute care nurse, and her notes from her doctor, Dr. Kinney, she is deemed not a surgical c andidate. ALLERGIES: OXYCODONE. CURRENT MEDICATIONS 1. Vitamin C 500 mg daily. 2. Aspirin 81 mg daily. 3. Lipitor 40 mg at bedtime. 4. Cymbalta 60 mg daily. 5. Lispro and Humalog mix insulin 75/25 two times daily injected subcutaneously. 6. Synthr oid 112 mcg daily. 7. Multivitamin with minerals once daily. 8. Omeprazole 20 mg daily. PAST MEDICAL HISTORY: She reports history of arrhythmia in the past. She indicates that she has a history of poor circulation, high cholesterol, diabetes, thyroid disease, diabetic neuropathy, depression, and migraine headaches. She indicates that when she was very young, she had seizures. PAST SURGICAL HISTORY: She indicates that she had lymph node biopsy in 1971. She had hyste rectomy in 1975. She indicates that she had a sesamoid bone removed from her right foot in 1959. She indicates that she had right shoulder rotator cuff repair in 2011. She indicates t hat she had right carotid endarterectomy surgery in 2009. FAMILY HISTORY: She indicates that father at age 60 from heart attack. She ind icates that mother at age 54 from taking too many pills. She indicates that her mother was living in a correction and had paranoid schizophrenia. She indicates that she wa s age 28 when her mother . She indicates that heart disease, diabetes, and mental illne ss run in her family. SOCIAL HISTORY: She works at [employer]. 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 She indicates that she [place] to [place] She smokes a pac k and a half of cigarettes per day and has been smoking for years. She denies consumption o f alcohol. She denies use of illicit drugs. She indicates that she tried smoking marijuana 2 years ago for back pain. She indicates that it did give her some pain reduction. REVIEW OF SYSTEMS Ms. Benitez denies nausea, vomiting, diarrhea, constipation, fever, chills, shortness of kelsey th, or chest pain. She denies skin breakdown or rash. All other review of systems negative. PHYSICAL EXAMINATION VITAL SIGNS: Heart rate 106, respiratory rate 18, blood pressure 128/70, weight 144 pounds, height 5 foot 5 inches. GENERAL: No acute distress. Alert and oriented to person, place, time and situation. HEENT : Extraocular muscles intact. Sclerae clear. NECK: Limited range of motion. No focal tenderness to palpation. Spurling's test negative. Axial loading test negative. HEART: Rate is slightly fast, but is regular. No murmurs, no gallops. LUNGS: Clear to ausc ultation. No wheezing, no crackles. ABDOMEN: Nontender. Positive for bowel sounds. Mild obesity. BACK: Flattening of normal debra mbar lordosis. Lumbar facet loading test increases low back pain. Seated straight leg raise positive on the left, equivocal on the right. Jonah's test negative bilaterally. EXTREMITIES: Exam reveals no clubbing, cyanosis or edema in all 4 extremities. NEUROLOGICA L: Exam demonstrates decreased sensation in left L5 dermatome and right L4 dermatome. Remai nder of sensation intact in upper extremities. There is subjective decreased sensation in t he stocking distribution of both feet. Patellar reflex could not be elicited on the right, was 2+ on the left. Achilles reflex could not be elicited bilaterally. There is no clonus t o either ankle. Babinski was downgoing bilaterally. Strength was 4/5 with ankle dorsiflexio n and knee flexion in the left lower extremity compared to 4+/5 on the right. There was 4+/ 5 knee extension strength on the right compared to 5/5 on the left. There is 5/5 hip flexio n strength in both lower extremities. Gait was antalgic. She had a very slow process of sta nding up as she reported significant back pain and stiffness with this process. Coordination is intact throughout. Memory and speech are intact. Cranial nerves are normal and intact. DATABASE: Lumbar MRI from 2013, imaging personally reviewed by me, demonstrates multilevel degenerative disk disease. Most pronounced at L4-5 and L5-S1. There is severe neural forami nal narrowing at left L5-S1. There is moderate neural foraminal narrowing at right L4-5. Th ere is multilevel lumbar facet arthritis. There are Modic endplate changes primarily at L4- 5 and L5- S1. There are no x-rays of lumbar spine available for review. ASSESSMENT 1. LUMBALGIA, ICD-9 724.2. 2. LUMBAR RADICULOPATHY, LEFT L5 AND RIGHT L4, ICD-9 724.4. 3. LUMBAR DEGENERATIVE DISK DISEASE, ICD-9 722.52. 4. LUMBAR FACET ARTHRITIS, ICD-9 721.3. 5. TOBACCO DEPENDENCE, ICD-9 305.1. PLAN: Greater than 3 minutes was spent today discussing smoking cessation. Ms. Benitez was a dvised to quit smoking. We discussed the risks of lung cancer, stroke, heart disease. We di scussed the increased risk of degenerative disk disease and back pain. We discussed higher surgical failure rate in those that have back surgery and continue to smoke. She was encoura teddy to consider smoking cessation at this time. She will have lumbar x-rays, AP, lateral, flexion and extension views to evaluate for any instability in the back. She does do some particular positioning and has significant difficu lty with extension of her back when standing upright. This may be related to underlying fac et arthritis and may also be result of instability. Lumbar x-rays will help evaluate for an y degree of instability. She has numbness and weakness in both lower extremities, in the left lower extremity most consistent with L5 radiculopathy, in the right lower extremity most consistent with L4 radi culopathy. She will continue medication Cymbalta, which may be helpful for neuropathic pain . She will start new medication, gabapentin. She will start at low dose and taper up. This medication may also be helpful for neuropathic pain. She will participate in physical therap y for her back which will include aquatic based core strengthening, which may be helpful fo r lumbar radiculopathy as well as facet arthritis. She will have diagnostic and therapeutic left L5-S1 transforaminal epidural steroid injection and right L4-L5 transforaminal epidur al steroid injection. She will return to the clinic in 6 weeks' time to review her response to gabapentin, combined with Cymbalta, physical therapy, lumbar x-rays and epidural steroi d injections. Hopefully, in the meantime, she will have worked towards or given further con sideration to smoking cessation. Greater than 45 minutes was spent [id number] today with Ms. Benitez over half of which was spent formulating and discussing her medical treatment plan. Thank you for allowing me to be involved in the care of your the patient. If you have any questions regarding the care of Ms. Benitez, please do not hesitate to call. Gael Adam Jr, MD INKOM / JOB #: [id number] cc: Tracey Kinney MD Tdocumented in this encounter Plan of Treatment + + +--------+ + + | Name | Type | Priori | Associated Diagnoses | Order Schedule | | | | ty | | | + + +--------+ + + | Ambulatory referral | Outpatient | Routin | Lumbalgia Lumbar | 1 Occurrences | | to Physical Therapy | Referral | e | radiculopathy | starting 08/07/2013 | | | | | Lumbar degenerative | until 08/07/2014 | | | | | disc disease Lumbar | | | | | | facet arthropathy | | + + +--------+ + + documented as of this encounter Results XR Lumbar Spine 4 [...] lumbar spine. Levoconvex scoliosis. 5 | | kprada-iureqjtoeryop-ctsc vertebral bodies. Retrolisthesis of L3 on L4 [...] + | MISCELLANEOUS LAB | | | [phone] | + +---------+ + + | MISCELANIOUS LAB | | | [phone] | + +---------+ + + documented in this encounter Visit Diagnoses + + | Diagnosis | + + | Lumbalgia - Primary Lumbago | + + | Lumbar radiculopathy Thoracic or lumbosacral neuritis or radiculitis, unspecified | + + | Lumbar degenerative disc disease Degeneration of lumbar or lumbosacral intervertebral | | disc | + + | Lumbar facet arthropathy Lumbosacral spondylosis without myelopathy | + + | Tobacco dependence Tobacco use disorder | + + documented in this encounter
--- OUTSIDE RECORDS SUMMARY | ~2019-03-02 | XMS | Encounter Summary ---
Demographics + + + | Address | [address] | | | [place] [address] | + + + | Home Phone | | + + + | Preferred Language | Unknown | + + + | Marital Status | Single | + + + | Jehovah'S Witness Affiliation | Unknown | + + + | Race | White | + + + | Ethnic Group | Other Race | + + + Author + + + | Author | [facility] | + + + | Organization | [facility] | + + + | Address | Unknown | + + + | Phone | Unavailable | + + + Support + + +---------+ + | Name | Relationship | Address | Phone | + + +---------+ + | Karen Unknown | ECON | Unknown | | + + +---------+ + Care Team Providers + +------+ + | Care Environmental Conflict Manager Name | Role | Phone | + +------+ + | Margie Gonzalez PA-C | PCP | | + +------+ + Reason for Visit + + + | Reason | Comments | + + + | Care Coordination | | + + + Encounter Details +--------+ + + + + | Date | Type | Department | Care Team | Description | +--------+ + + + + | 09/19/ | Documentati | General Internal | Bharti Malik, | Care Coordination | | 2019 | on | Medicine at Offsite | [address] [place] [address] | | | | | [address] [facility] [address] | [address] | | | | | Lazara Infante Mailcode: | [place], [place] | | | | | [id number] [place], [place] | [address] | | | | | | [phone] | | | | | [phone] | | | +--------+ + + + [...]
--- OUTSIDE RECORDS SUMMARY | ~2019-03-02 | XMS | Encounter Summary ---
Demographics + + + | Address | [address] | | | [place] [address] | + + + | Home Phone [...] | Author | [facility] | | | and Dwayneana | + + + | Organization | [facility] | | | and Dwayneana [...] Team Providers + +------+ + | Care Organizational Development Manager Name | Role | Phone | + +------+ + | Matt Kinney MD | PCP | | + +------+ + Reason for Visit +--------+ + | Reason | Comments | +--------+ + | Other | labs | +--------+ + Encounter Details +--------+ + + + + | Date | Type | Department | Care Team | Description | +--------+ + + + + | 03/27/ | Telephone | [facility] Evette Lopez | Other (labs) | | 2013 | | NEUROLOGY [facility] | NORAH Mclean | | | | | [address], | | | | | | [address] [facility] | | | | | | [place] [address] | | | | | | [phone] | | | +--------+ + + + [...]
--- OUTSIDE RECORDS SUMMARY | ~2019-03-02 | XMS | Encounter Summary ---
Demographics + + + | Address | [address] | | | [place] [address] | + + + | Home Phone | | + + + | Preferred Language | Unknown | + + + | Marital Status | Single | + + + | Faith Affiliation | 1013 | + + + | Race | Unknown | + + + | Ethnic Group | Unknown | + + + Author + + + | Author | [facility] | | | and Dwayneana | + + + | Organization | [facility] [...] Providers + +------+ + | Care Data Operations Manager Name | Role | Phone | [...] | | | | Cervical | | [address] | | | | | Spine w wo | | Phone: | | | | | Contrast | | [phone] | | | | | | | Fax: | | | | | | | [phone] | +--------+--------+ + + + + Diagnostic/Screening [...] | AVE | | | | | ([facility]) | | [place] | | | | | Procedures | | [address] | | | | | MRI Brain w | | Phone: | | | | | wo Contrast | | [phone] | | | | | | | Fax: | | | | | | | [phone] | +--------+--------+ + + + + Evaluate [...] | | | | | | | [address] | | | | | | | Phone: | | | | | | | [phone] | | | | | | | Fax: | | | | | | | [phone] | +--------+ + + + + + [...] | | | | | Tremor | [address] | updated | | | | | | [place], | address | | | | | | [place] [address] | | | | | | | Phone: | | | | | | | [phone] | | | | | | | Fax: | | | | | | | [phone] | | +--------+ + + + + + Encounter Details +--------+---------+ + + + | Date | Type | Department | Care Team | Description | +--------+---------+ + + + | 03/18/ | Office | [facility] | Zen Carey | HELLEN (obstructive | | 2013 | Visit | [facility] | MD Macie Need updated | sleep apnea) | | | | [address] [facility], | address | (Primary Dx); | | | | [facility] [address] [place] [address] | | Tremor; | | | | [place] [address] | | Incoordination; | | | | [phone] | | Sarcoid (HCC); | | | [...] Then your treatment options can be discussed. 8634-9492 [facility], [address] [place] [address], [place] [address]. All rights reserve d. This information is not intended as a substitute for professional medical care. Always fo llow your healthcare professional's instructions. documented in this encounter Progress Notes Zen Carey MD - 03/18/2014 2:27 PM PSTFormatting of this note might be differen t from the original. Zen Carey MD [address] [facility], [address] [place] [address] Neurology Outpatient New Patient Note Referring Provider: Gael Adam MD [address] [place] [address] Chief Complaint: Chief Complaint Patient presents with [...] feels incoordinated and clumsy at times. 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 She has no trouble falling asleep, but cannot maintain sleep. She wakes up to urinate once nightly and struggles with dry mouth. She does not feel refreshed in the morning and is often very sleepy during the day. She had a sleep study done over 10 years ago in [facility] that apparently showed HELLEN, but she was [...] History Procedure Date Lymph node biopsy 1971 Pettibone Hysterectomy 1975 [place] Rotator cuff repair [...] 25.13 kg/ m2 Neck Circumference: 14 3/8" [facility] Sleepiness Scale: 9 General: well developed and [...] Intrinsics 5 5- Ulnar Intrinsics 5 5 Dietary Clerk Strength 5- 5- Hip Flexion 5 5 [...] Will order all of the above through [facility] 4) Discussed falls prevention 5) Depending on [...]
--- OUTSIDE RECORDS SUMMARY | ~2019-03-02 | XMS | Encounter Summary ---
Demographics + + + | Address | [address] | | | [place] [address] | + + + | Home Phone | | + + + | Preferred Language | Unknown | + + + | Marital Status | Single | + + + | Hindu Affiliation | 1013 | + + + | Race | Unknown | + + + | Ethnic Group | Unknown | + + + Author + + + | Author | [facility] | | | and Dwayneana | + + + | Organization | [facility] [...] Providers + +------+ + | Care Environmental Control Administrator Name | Role | Phone | + [...] + + | 03/27/ | Telephone | [facility] | Evette Lopez | Other (labs) | | 2013 | | NEUROLOGY [facility] | NORAH Mclean | | | | | [address], | | | | | | [address] [facility] | | | | | | [place] [address] | | | | | | [phone] | | | +--------+ + + + [...]
--- OUTSIDE RECORDS SUMMARY | ~2019-03-02 | XMS | Encounter Summary ---
Demographics + + + | Address | [address] | | | [place] [address] | + + + | Home Phone [...] Author + + + | Author | [facility] | + + + | Organization | [facility] | + + + | Address | Unknown | + + + | Phone | Unavailable | + + + Support + + +---------+ + | Name | Relationship | Address | Phone | + + +---------+ + | Karen Unknown | ECON | Unknown | | + + +---------+ + Care Team Providers + +------+ + | Care B2B Managed Service Sales Exec Name | Role | Phone | + [...] | | 2019 | | [facility] | MD Macie [address] | Nursing Facility | | | | [address] [place] | [address] | (hypoglycemia(DM) | | | | Lazara Infante Mailcode: | [place], [place] | and CXR ) | | | | [address] [place], [place] | [address] | | | | | [address] | [phone] | | | | | [phone] | | | +--------+ + + + [...]
--- OUTSIDE RECORDS SUMMARY | ~2019-03-02 | XMS | Encounter Summary ---
Demographics + + + | Address | [address] | | | [place] [address] | + + + | Home Phone [...] Author | [facility] | | | and Dwayneana | + + + | Organization | [facility] | | | and Dwayneana [...] Team Providers + +------+ + | Care Hydration Plant Operator Name | Role | Phone | [...] Closed | | Radiology | Diagnoses | Adam, | [facility] | | | | | Right | Gael Ni MD | [address] | | | | | shoulder | [address] | [place], | | | | | pain Right | [address] | [place] | | | | | rotator cuff | [place], | [address] | | | | | tear | [place] [address] | Phone: | | | | | Procedures | Phone: | [phone] | | | | | MRI Shoulder | [phone] | Fax: | | | | | Right | Fax: | [phone] | | | | | Arthrogram w | [phone] | | | | | | Contrast | | | +--------+--------+ + + + + Reason for Visit + + + | Reason | Comments | + + + | Back Pain | radiates to BLE | + + + | Shoulder Pain | right | + + + Encounter Details +--------+---------+ + + + | Date | Type | Department | Care Team | Description | +--------+---------+ + + + | 12/24/ | Office | [facility] [place] | Gael Adam, | Right shoulder pain | | 2013 | Visit | PHYSIATRY [address] | [address] | (Primary Dx); Right | | | | [address] [place], | [place], [place] | rotator cuff tear; | | | | [place] [address] | [address] | Lumbalgia; Facet | | | | [phone] | | arthritis of lumbar | | | | | | region; Lumbar | | | | | | radiculopathy; | | | | | | Tobacco dependence; | | | | | | Cervicalgia; | | | | | | Numbness and | | | | | | tingling in left | | | | | | hand | +--------+---------+ + + + Social History [...] + + + | Blood Pressure | 118/70 | 12/24/2013 1:43 PM | | | | | PDT | | + + + + + | Pulse | 88 | 12/24/2013 1:43 PM | | | | | PDT | | + + + + + | Temperature | - | - | | + + + + + | Respiratory Rate | 18 | 12/24/2013 1:43 PM | | | | | PDT | | + + + + + | Oxygen Saturation | - | - | | + + + + + | Inhaled Oxygen | - | - | | | Concentration | | | | + + + + + | Weight | 66.7 kg (147 lb) | 12/24/2013 1:43 PM | | | | | PDT | | + + + + + | Height | 165.1 cm (5' 5") | 12/24/2013 1:43 PM | | | | | PDT | | + + + + + | Body Mass Index | 24.46 | 12/24/2013 1:43 PM | | | | | PDT | | + + + + + documented in this encounter Patient Instructions Patient Instructions Gael Adam MD - 12/24/2013 2:21 PM PDTIt is recommended that yo u stop smoking as discussed during today's appointment. Sometimes it helps if you set a cy t date. NSAIDs such as over the counter Aleve may help reduce your pain, but have some risks. There is an increased risk of gastrointestinal bleed and/or ulcer with all nonsteroidal ant iinflammatory medication (NSAIDs). If you have stomach upset or pain stop taking the medica tion. If you have dark black stool or if you vomit up what looks like coffee grounds please seek emergent medical attention. There is an increased risk of cardiovascular disease, such as heart attack and/or wit h all nonsteroidal antiinflammatory medication (NSAIDs) including the medications prescribed for you. If you have chest pain, shortness of breath, chest pressure; stop taking the medi cation and seek emergent medical attention. There is an increased risk of stroke, disabilit y, and with all nonsteroidal antiinflammatory medication (NSAIDs). If back pain persists in the future, please return to the clinic and we may consider steroi d injections. X-rays have been requested. Please go to the x-ray department after your appointment to co mplete these x-rays. The results of your x-rays will be reviewed at your next appointment. If your x-rays demonstrate any emergent results, the clinic will contact you. A MRI has been requested. Please complete the requested imaging. Within one week, you ijeoma mireya receive a call to schedule your MRI. If you have not heard from anyone within one week, please call the clinic. The results of your MRI will be reviewed at your next appointment. If your MRI demonstrates any emergent results, the clinic will contact you. Return to the clinic in one month. Follow up with your surgeon after you have completed yo ur MRI. documented in this encounter Progress Notes Gael Adam MD - 12/24/2013 2:27 PM PDTThis office note has been dictated. Job ID# [id number] signed by Gael Adam MD at 12/24/2013 2:38 PM Mildred Dutta RN - 12/24/2013 1:49 PM PDTPatient states 5/10 pain to lower back that radiates to legs, states new problem of right shoulder pain. Gael Pickard MD - 12/24/2013 12:00 AM PDT [facility] [address] [place] [address] FAX: [phone] OFFICE VISIT PHYSICAL MEDICINE REHABILITATION PROGRESS NOTE CONSULT REQUESTED BY: Tracey Kinney MD DATE OF SERVICE: 12/24/2013 PATIENT IDENTIFICATION: A 63-year-old female with low back pain history. chief complaint to day of right shoulder pain. HISTORY OF THE PRESENT ILLNESS: Ms. Benitez has a few new complaints. She reports a history o f previous right rotator cuff tear and labral tear, status post repair. She has had chronic right shoulder pain. She reports acute exacerbation of shoulder pain 12/19/2013. She was r eaching behind her. She felt a snap or pop within the shoulder. Subsequently, she has had s evere debilitating right shoulder pain. She cannot abduct the shoulder. She cannot forward flex the shoulder. She has been keeping the arm immobilized at her side for the last week. She indicates that pain is tolerable. She rates her current shoulder pain as an 5/10 on a n umerical pain scale. She indicates that pain is constant in timing. Pain is sharp in qualit y. She indicates that her shoulder was better after shoulder surgery. The last shoulder travis karmen was 2 years ago. She reports that her pain is now acutely worse. She indicates that sh jose feels popping and grinding within the shoulder whenever she moves it. She indicates that pain is increased with shoulder abduction. Pain is reduced with keeping her arm close to th e body. She is wondering what more might be done or evaluated regarding her new acute right shoulder pain. Pain radiates into the upper arm on the right. She denies any new numbness or tingling in the right upper extremity. She indicates that she has had some neck pain in the past. She reports some crepitus within the neck. She indicates that she has had some burning pain in the first and second fingers of the left upper extremity unrelated to right shoulder pain. She indicates that pain was temporarily reduced by taking anti-inflammatory medication. She was told by her doctor that she has arthritis in her neck, as well as a possible pinched nerve in the neck. She indica rowena that the symptoms in the left hand is less bothersome. She reports pain in the left montiel d is currently a 1 or 2/10 on a numerical pain scale. Pain is burning. Pain is constant. Pa in is in left C6 distribution. She indicates that the more pressing issue at this time is r ight shoulder pain. In regards to back pain, she has had previous physical therapy. Previous epidural steroid injections 08/2013 offered significant benefit. She reports over the last couple of days she has had return of some of her low back pain. Pain is worse when she first stands up after prolonged episode of being seated. Pain is worse if she bends over then tries to stand back up. She denies any pain traveling from the back into the lower extremities. She denies any pain, numbness, paresthesia or weakness in either lower extremity. She denies bowel or dwaine dder incontinence. She denies saddle anesthesia. She denies any numbness, tingling, or weak ness in either lower extremity. Back pain was reduced when she was on anti-inflammatory med ication. Gabapentin is helping to some degree. She has completed physical therapy and doing home exercise program. ALLERGIES: OXYCODONE. CURRENT MEDICATIONS 1. Vitamin C. 2. Aspirin 81 mg daily. 3. Lipitor 40 mg nightly. 4. Cymbalta 60 mg daily. 5. Gabapentin 300 mg 1 in the morning, 2 at night. 6. Synthroid 112 mcg daily. 7. Multivitamins with minerals daily. 8. Humalog mix injected 2 times daily. 9. Omeprazole 20 mg every morning. REVIEW OF SYSTEMS Ms. Benitez denies nausea, vomiting, diarrhea, constipation, fever, chills, shortness of kelsey th, or chest pain. She denies skin breakdown or rash. All other review of systems negative. SOCIAL MEDICAL HISTORY: Ms. Benitez smokes. She has been smoking on and off since age 12. The re was a period of time where she had quit for 5 months but then her of the time st arted smoking again and it caught on. She indicates that the longest that she has gone rece ntly without a cigarette was 27 hours. After that cravings were too much and she resumed sm oking. PHYSICAL EXAMINATION VITAL SIGNS: Heart rate 88, respiratory rate 18, blood pressure 118/70, weight 147 pounds, height 5 foot 5 inches. GENERAL: In no acute distress. Alert and oriented to person, place, time and situation. HE ENT: Extraocular muscles intact. Sclerae are clear. NECK: Limited range of motion. Spurling's test negative. EXTREMITIES: Reveals no clubbing, cyanosis or edema. Right shoulder examination demonstrates impingement of right shoulder, limited range of motion with right shoulder. Full cans test and empty cans test positive. C repitus within right shoulder. All findings consistent with new rotator cuff tear versus ne w labral tear. No warmth or bruising noted over the shoulder. BACK: Examination demonstrat es facet loading test positive. Seated straight leg raise negative bilaterally. Sensory and strength normal in lower extremities. DATABASE: No new imaging or laboratory data available for review at this time. IMPRESSION 1. ACUTE ON CHRONIC RIGHT SHOULDER PAIN, ICD-9 719.41. 2. HISTORY OF ROTATOR CUFF TEAR, LIKELY REPEAT ROTATOR CUFF TEAR, ICD-9 840.4. 3. LUMBALGIA, ICD-9 724.2. 4. LUMBAR FACET ARTHRITIS, ICD-9 721.3. 5. LUMBAR RADICULOPATHY AT LEFT L5 AND THE RIGHT L4 - QUIESCENT, ICD-9 724.4. 6. TOBACCO DEPENDENCE, ICD-9 305.1. 7. CERVICALGIA, ICD-9 723.1. 7. PARESTHESIA IN THE C6 DISTRIBUTION OF LEFT HAND PLAN: Ms. Benitez's shoulder pain is the most pressing issue for her at this time. I suspect she has either new labral tear or rotator cuff tear in the right shoulder. I am requesting right shoulder x-ray. I am requesting right shoulder MR arthrogram. She has had previous ph ysical therapy for shoulder and surgery for shoulder in the past. She will return to review this imaging in the near future. She may also followup with her orthopedic surgeon, Dr. Faheem quintanilla, to review the imaging and discuss treatment options for her right shoulder. He has perf ormed her previous right shoulder surgeries. In regards to neck symptoms and pain traveling into left upper extremity over C6 dermatome, she likely has C6 radiculitis. Strength is normal in the right upper extremity at this shirley e. This is a much less pressing issue for her. She reports minimal pain at this time of lit tle or no concern to her. In the future, once shoulder pain is better controlled, may fur er investigate this and look into treating probable cervical radiculitis at C6 on the left. In regards to back pain, it is currently modestly controlled. She indicates that she has pa in over facet joints. I believe that current pain is most likely related to facet arthritis . She previously had positive response to epidural steroid injections. May consider repeati ng epidural steroid injections in the future or performing facet injections for the first t tony to treat facet arthritis. Currently, she has no major pain complaints. No new pain inje ctions at this time. In regards to tobacco dependence, she was advised to quit smoking. We discussed smoking and its contribution towards degenerative disk disease and its possible contribution towards h er neck and back pain. She is advised to set a quit date. Greater than 3 minutes was spent discussing smoking cessation today. Ms. Benitez will return to the clinic in 1 month's time t o review the results of her imaging. She is advised to followup with Dr. Tristan when she has completed her x- rays and MRI of the right shoulder. Thank you for allowing me to be involved in the care of your patient. If you have any quest ions regarding the care of Ms. Benitez, please do not hesitate to call. Gael Adam Jr, MD GEM / PAP JOB #: [id number] cc: MD Matt Conde MD Tdocumented in this encounter Plan of Treatment + +---------+--------+ + + | Name | Type | Priori | Associated Diagnoses | Order Schedule | | | | ty | | | + +---------+--------+ + + | MRI Shoulder Right | Imaging | Routin | Right shoulder | Expected: | | Arthrogram w | | e | pain Right rotator | 12/24/2013, Expires: | | Contrast | | | cuff tear | 12/24/2014 | + +---------+--------+ + + | FL Shoulder Inj | Imaging | Routin | Right shoulder | Expected: | | Right for MRI or CT | | e | pain Right rotator | 12/24/2013, Expires: | | | | | cuff tear | 12/24/2014 | + +---------+--------+ + + documented as of this encounter Results XR Shoulder Right 2 [...] + | MISCELLANEOUS LAB | | | [phone] | + +---------+ + + | MISCELANIOUS LAB | | | [phone] | + +---------+ + + documented in this encounter Visit Diagnoses + + | Diagnosis | + + | Right shoulder pain - Primary Pain in joint, shoulder region | + + | Right rotator cuff tear Rotator cuff (capsule) sprain | + + | Lumbalgia Lumbago | + + | Facet arthritis of lumbar region Lumbosacral spondylosis without myelopathy | + + | Lumbar radiculopathy Thoracic or lumbosacral neuritis or radiculitis, unspecified | + + | Tobacco dependence Tobacco use disorder | + + | Cervicalgia | + + | Numbness and tingling in left hand Disturbance of skin sensation | + + documented in this encounter
--- OUTSIDE RECORDS SUMMARY | ~2019-03-02 | XMS | Encounter Summary ---
Demographics + + + | Address | [address] | | | [place] [address] | + + + | Home Phone [...] Providers + +------+ + | Care Commercial Sales Consultant Name | Role | Phone | [...] | 2019 | on | Medicine at [facility] | [address] | | | | | [address] | [address] | | | | | Lazara Infante Mailcode: | [place], [place] | | | | | [id number] [place], [place] | [address] | | | | | [address] | [phone] | | | | | [phone] | | | +--------+ + + + [...]
--- OUTSIDE RECORDS SUMMARY | ~2019-03-02 | XMS | Encounter Summary ---
Demographics + + + | Address | [address] | | | [place] [address] | + + + | Home Phone | | + + + | Preferred Language | Unknown | + + + | Marital Status | Single | + + + | Yazidism Affiliation | 1013 | + + + | Race | Unknown | + + + | Ethnic Group | Unknown | + + + Author + + + | Author | [facility] | | | and Dwayneana | + + + | Organization | [facility] | | | and [...] Team Providers + +------+ + | Care Pottery Kiln Builder Name | Role | Phone | + +------+ + | Margie Gonzalez | PCP | | + +------+ + Encounter Details +--------+ + + + + | Date | Type | Department | Care Team | Description | +--------+ + + + + | 01/10/ | Hospital | [facility] | Joseph Aranda | Dyspnea, unspecified | | 2018 | Encounter | MED CTR PULMONARY | MD Avinash [address] | type | | | | FUNCTION [address] | [place] | | | | | [address] [place], | [place] [address] | | | | | [place] [address] | [phone] | | | | | [phone] | | | +--------+ + + + [...] | | Joseph Aranda MD 01/11/2018 10:57[facility] | | | CENTER | | [...] Aranda MD 01/11/2018 10:57 | | |[facility] | | | | | + + + documented in this encounter Visit Diagnoses + + | Diagnosis | + + | Dyspnea, unspecified type | + + documented in this encounter"
--- OUTSIDE RECORDS SUMMARY | ~2019-03-02 | XMS | Encounter Summary ---
Demographics + + + | Address | [address] | | | [place] [address] | + + + | Home Phone [...] + | Author | [facility] | | | and Dwayneana | + + + | Organization | [facility] | | | and Dwayneana [...] Team Providers + +------+ + | Care Voyage Management System Operator Name | Role | Phone | [...] + + | 05/26/ | Telephone | [facility] | Nestor Nice | Other (Patient would | | 2014 | | SURGERY [address] | MD Alma, FACS [address] | like orders for | | | | [place], [place] | [facility] | imaging sent to [facility] | | | | [address] | [place] [address] | Ly) | | | | [phone] | [phone] | | | | | | | [...]
--- OUTSIDE RECORDS SUMMARY | ~2019-03-02 | XMS | Encounter Summary ---
Demographics + + + | Address | [address] | | | [place] [address] | + + + | Home Phone [...] | Author | [facility] | | | and Dwayneana | + + + | Organization | [facility] | | | and [...] Team Providers + +------+ + | Care Sound Equipment Mechanic Name | Role | Phone | + +------+ + | Matt Kinney MD | PCP | | + +------+ + Encounter Details +--------+ + + + + | Date | Type | Department | Care Team | Description | +--------+ + + + + | 08/04/ | Hospital | [facility] | Bubba Maxwell | Carotid artery | | 2015 | Encounter | MED CTR ULTRASOUND | MD Yimi [address] | disease (HCC) | | | | [address] [place] | [address] [place] | | | | | [place], [place] | [place] [address] | | | | | [address] | [phone] | | | | | [phone] | | | | | | | [...] ST. | [address] | [place], [place] | [phone] | | [facility] | | [address] | | | - IMAGING | | | | + + + + + documented in this encounter Visit Diagnoses + + | Diagnosis | + + | Carotid artery disease (HCC) Unspecified disorders of arteries and arterioles | + + documented in this encounter"
--- OUTSIDE RECORDS SUMMARY | ~2019-03-02 | XMS | Encounter Summary ---
Demographics + + + | Address | [address] | | | [place] [address] | + + + | Home Phone [...] | Author | [facility] | | | and Dwayneana | + + + | Organization | [facility] | | | and [...] Team Providers + +------+ + | Care Cam Milling Machine Operator Name | Role | Phone | + +------+ + | Margie Gonzalez | PCP | | + +------+ + Encounter Details +--------+ + + + + | Date | Type | Department | Care Team | Description | +--------+ + + + + | 10/09/ | Abstract | [facility] [place] | Bubba Maxwell | Heart valve replaced | | 2019 | | CARDIOLOGY [address] | MD Yimi [address] | | | | | [employer], | [address] [place] | | | | | [place] [address] | [place] [address] | | | | | [phone] | [phone] | | | | | | | [...] | + +--------+ + + + | [facility] | Routin | 09/26/2018 [...]
--- OUTSIDE RECORDS SUMMARY | ~2019-03-02 | XMS | Encounter Summary ---
Demographics + + + | Address | [address] | | | [place] [address] | + + + | Home Phone [...] | Author | [facility] | | | and Dwayneana | + + + | Organization | [facility] | | [...] Team Providers + +------+ + | Care Dialysis Chief Equipment Technician Name | Role | Phone | [...] | | | | | address | [place], [place] | | | | | | | [address] Phone: | | | | | | | [phone] | | | | | | | Fax: | | | | | | | [phone] | +--------+ + + + + + Reason for Visit +--------+ + | Reason | Comments | +--------+ + | Other | Returned Dr Carey's call | +--------+ + Encounter Details +--------+ + + + + | Date | Type | Department | Care Team | Description | +--------+ + + + + | 04/24/ | Telephone | [facility] | Zen Carey | Other (Returned Dr | | 2014 | | NEUROLOGY ESME | MD Macie Need updated | Aurelio's call) | | | | [address] [facility], | address | | | | | [address] [place] | | | | | | [place] [address] | | | | | | [phone] | | | +--------+ + + + [...] + + +--------+ + + | * [facility] | Outpatient | Routin | Cervical stenosis | Ordered: 04/24/2014 | | Neurosurgery - AMB | Referral | e | of spinal canal | | | Referral | | | | | + + +--------+ + + documented as of this encounter Visit Diagnoses + + | Diagnosis | + + | Cervical stenosis of spinal canal - Primary Spinal stenosis in cervical region | + + documented in this encounter"
--- OUTSIDE RECORDS SUMMARY | ~2019-03-02 | XMS | Encounter Summary ---
Demographics + + + | Address | [address] | | | [place] [address] | + + + | Home Phone [...] | [facility] | | | and Dwayneana | + + + | Organization | [facility] | | | [...] Team Providers + +------+ + | Care Presidential Support Specialist Name | Role | Phone | [...] | disease) (Primary | | | | [place] [place], | [address] [place] | Dx); Pre-op | | | | [place] [address] | [place] [address] | evaluation | | | | [phone] | [phone] | | | | | | | [...] at | | | | | | ([email or web address] | | | | | | Performed: [place], [address] | | | | | | [address], [place] | | | | | | [address] | | | | + + + [...] [address] | [place] [address] | [phone] | + + + + + documented in this encounter Visit Diagnoses + + | Diagnosis | + + | CAD (coronary artery disease) - Primary Coronary atherosclerosis of unspecified type | | of vessel, angoon or graft | + + | Pre-op evaluation Preoperative examination, unspecified | + + documented in this encounter"
--- OUTSIDE RECORDS SUMMARY | ~2019-03-02 | XMS | Encounter Summary ---
Demographics + + + | Address | [address] | | | [place] [address] | + + + | Home Phone [...] | Author | [facility] | | | and Dwayneana | + + + | Organization | [facility] | | | and Dwayneana [...] Team Providers + +------+ + | Care Dental Receptionist Name | Role | Phone | [...] | | | | | [address] | [address] | | | | | [place] | [place] [address] | | | | | [address] | [phone] | | | | | [phone] | | | +--------+---------+ + + + [...]
--- OUTSIDE RECORDS SUMMARY | ~2019-03-02 | XMS | Encounter Summary ---
Demographics + + + | Address | [address] | | | [place] [address] | + + + | Home Phone | | + + + | Preferred Language | Unknown | + + + | Marital Status | Single | + + + | Hinduism Affiliation | Unknown | + + + | Race | White | + + + | Ethnic Group | Other Race | + + + Author + + + | Author | [facility] | + + + | Organization | [facility] | + + + | Address | Unknown | + + + | Phone | Unavailable | + + + Support + + +---------+ + | Name | Relationship | Address | Phone | + + +---------+ + | Karen Unknown | ECON | Unknown | | + + +---------+ + Care Team Providers + +------+ + | Care Design Studio Consultant Name | Role | Phone | [...] | | | Lazara Infante Mailcode: | [place], [place] | | | | | [id number] [place], [place] | [address] | | | | | [address] | [phone] | | | | | [phone] | | | +--------+ + + + [...]
--- OUTSIDE RECORDS SUMMARY | ~2019-03-02 | XMS | Encounter Summary ---
Demographics + + + | Address | [address] | | | [place] [address] | + + + | Home Phone [...] Author | [facility] | | | and Dwayneana | + + + | Organization | [facility] | | | and [...] Team Providers + +------+ + | Care Instrument Technician Helper Name | Role | Phone | [...] + + | 01/07/ | Telephone | [facility] [place] | Gael Adam, | Results | | 2013 | | PHYSIATRY [address] | MD [address] | | | | | [place], | [place], [place] | | | | | [place] [address] | [address] | | | | | [phone] | | | +--------+ + + + [...]
--- OUTSIDE RECORDS SUMMARY | ~2019-03-02 | XMS | Encounter Summary ---
Demographics + + + | Address | [address] | | | [place] [address] | + + + | Home Phone | | + + + | Preferred Language | Unknown | + + + | Marital Status | Single | + + + | Taoist Affiliation | 1013 | + + + | Race | Unknown | + + + | Ethnic Group | Unknown | + + + Author + + + | Author | [facility] | | | and Dwayneana | + + + | Organization | [facility] [...] Team Providers + +------+ + | Care Automobiles Salesperson Name | Role | Phone | + [...] | | | | | | AL CATH | | | | | | [...] Description | +--------+---------+ + + + | 07/28/ | Surgery | [facility] | Bubba Maxwell | LEFT HEART CATH | | 2014 | | MED CTR CV INTRA OP | MD Yimi [address] | | | | | [address] | [address] [place] | | | | | [place], [place] | [place], [place] [address] | | | | | [address] | [phone] | | | | | [phone] | | | +--------+---------+ + + + [...] You have a fever over 101F (38.3C). [id number] [employer]. [address] [place] [address], [place] [address]. All righ ts reserved. This information is [...] Etelvina Benitez, (1950) MEDICAL RECORD NUMBER: | [facility] | | [id number] DATE OF PROCEDURE: 07/28/2014 MANAGER CARDIAC: | - IMAGING | | Bubba Maxwell MD, PhD, [facility] PROCEDURES | | | PERFORMED: Coronary Angiography [...] + | [facility] | [address] | [place], [place] | [phone] | | [facility] | | [address] | | | - IMAGING | | [...] | | | | | mmol/L | [facility] | | | | | | MEDICAL | | | | | | CENTER - | | | | | | LABORATORY | | + + + + + + | K | 4.4 | 3.5 - 5.1 | [facility] | | | | | mmol/L | [facility] | | | | [...] [facility] | | | | | | [facility] | | | | | | MEDICAL | | | | | | CENTER - | | | | | | LABORATORY | | + + + + + + | Creatinine | 1.05 | 0.60 - 1.30 | [facility] | | | | | mg/dL | [facility] | | | | | | MEDICAL | | | | | | CENTER - | | | | | | LABORATORY | | + + + + + + | eGFR if not | 53 (L)Comment: | >=60 | [facility] | | | | GLOMERULAR FILTRATION | mL/min/1.73m2 | [facility] | | | [facility] | RATE,ESTIMATED | | MEDICAL | | | | mL/min/1.01a8Mfdt than | | CENTER - | | [...] | | | | mg/dL | [facility] | | | | | | MEDICAL | | | | | | CENTER - | | | | | | LABORATORY | | + + + + + + | BUN/Creatin | 12.4 | | [facility] | | | ine Ratio | | | [facility] | | [...] + | [facility] | [address] | [place] | [phone] | | [facility] | | [address] | | | - LABORATORY | | | | + + + + + POC Glucose (07/28/2014 8:13 AM PDT) + +-------+ + + + | Component | Value | Ref Range | Performed | Pathologist | | | | | At | Signature | + +-------+ + + + | Glucose, | 123 | 70 - 150 mg/dL | [facility] | | | POC [...] ST. | [address] | [place], [place] | [phone] | | [facility] | | [address] | | | - LABORATORY | | [...] 50 mcg | | | | Starting Sun07/28/14 at 0858 | | 15 8:58 | | | | | | | AM PDT | | | | + +--------+ +--------+------+------+ +---+---+ | | | +---+---+ + +-------+ +--------+---+---+ | iohexol (OMNIPAQUE 350) 350 | Given | 07/29/19 | 85 mLs | | | | mg/mL injection Intravenous, | | 15 9:23 | | | | | PRN, Starting Sun07/28/14 at 0923 | | AM PDT | [...]
--- OUTSIDE RECORDS SUMMARY | ~2019-03-02 | XMS | Encounter Summary ---
Demographics + + + | Address | [address] | | | [place] [address] | + + + | Home Phone [...] + + + | Author | [facility] | | | and Dwayneana | + + + | Organization | [facility] | [...] Team Providers + +------+ + | Care Overedger Name | Role | Phone | + [...] + | 04/09/ | Telephone | [facility] | Zen Carey | Other | | 2013 | | NEUROLOGY ESME Quijano MD Need updated | | | | | [address] [facility], | address | | | | | [address] [place] | | | | | | [place] [address] | | | | | | [phone] | | | +--------+ + + + [...]
--- OUTSIDE RECORDS SUMMARY | ~2019-03-02 | XMS | Encounter Summary ---
Demographics + + + | Address | [address] | | | [place] [address] | + + + | Home Phone [...] | Author | [facility] | | | and Dwayneana | + + + | Organization | [facility] | | | and Dwayneana | [...] Team Providers + +------+ + | Care Editor Producer Name | Role | Phone | + [...] [place] | | | | | [place], [place] | [address] | | | | | [address] | [phone] | | | | | [phone] | | | +--------+ + + + [...] TR Vmax: 2.57 m/s | | | Traffic Rate Computer: Authenticated by: Cliff Mercedes Report Date/Time: | | | 06-27-2017 19:30:24 | | + + + + + | Procedure Note | + + | Jesu Lopez - 12/12/2018 3:29 PM PDT Patient Name: Luis Enrique Benitez of | | : 1950 Performing Physician: Cliff | | [place] INDICATIONS------ | | -----Abnormal EKG CONCLUSIONS 1. [...] cmLVIDd: 5.22 cmLVPWd: 0.99 cmLVOT Area: 2.98 ix7PSOU Diam: 1.95 cm%FS: | | 19.77 %EF(Teich): [...] mlLAESV Index (A-L): 43.25 ml/m2LAAs A2C: 21.85 [id number] | | A-L A2C: 78.82 mlLALs A2C: 5.14 cmLAAs A4C: 18.83 [id number] A-L A4C: 59.67 mlLALs | | A4C: 5.04 cmRAAs: 11.34 [id number] A-L: 26.19 mlRAESV MOD: 27.03 mlRALs: 4.17 | | cmAo Diam: 3.17 cmLA Diam: 4.26 cmLA/Ao: 1.34TAPSE: 2.26 cmAV maxP.93 | | mmHgAV meanP.84 mmHgAV Vmax: 1.49 m/Brittani Vmean: 1.16 m/Brittani VTI: 31.58 cmAVA | | Vmax: 1.70 cm2AVA (VTI): 1.59 ie6ZYLH Vmax: 0.00 cm2/m2AVAI (VTI): 0.00 | | [...] 1.21MV PHT: 62.03 msMVA By PHT: 3.54 kp6Twvtxs e': 0.05 m/sSeptal E/e': | | 22.77Lateral e': 0.05 m/sLateral E/e': 22.35P Vein D: 0.74 m/sP Vein S/D Ratio: | | 0.46P Vein S: 0.34 m/sPV maxP.71 mmHgPV Vmax: 0.82 m/sRAP: 5 mmHgRVSP: | | 31.49 mmHgTR maxP.49 mmHgTR Vmax: 2.57 m/s Traffic Rate Computer:Authenticated by: | | Mershed [facility] Center[facility] Date/Time: 06-27-2017 19:30:24 IMPRESSION: 1. The left [...] |TR Vmax: 2.57 m/s | | | |Traffic Rate Computer: | |Authenticated by: Cliff Mercedes | |Report [...]
--- OUTSIDE RECORDS SUMMARY | ~2019-03-02 | XMS | Encounter Summary ---
Demographics + + + | Address | [address] | | | [place] [address] | + + + | Home Phone [...] Author | [facility] | | | and Dwayneana | + + + | Organization | [facility] | | | and [...] Team Providers + +------+ + | Care Fender Mechanic Name | Role | Phone | [...] obstructive | MD Yimi | [address] | | | | | pulmonary | [address] | [place], | | | | | disease, | St [place] | [place] | | | | | unspecified | [place], [place] | [address] | | | | | COPD type | [address] | Phone: | | | | | ([facility]) | Phone: | [phone] | | | | | | [phone] | Fax: | | | | | | Fax: | [phone] | | | | | | [phone] | | +--------+ + + + + [...] electrocardi | [address] | [address] | | | | | ogram (ECG) | [address] | [place], | | | | | (EKG) | [place], | [place] | | | | | Procedures | [place] | [address] | | | | | [place] | [address] | Phone: | | | | | | Phone: | [phone] | | | | | | [phone] | Fax: | | | | | | Fax: | [phone] | | | | | | [phone] | | +--------+--------+ + + + + Encounter Details +--------+---------+ + + + | Date | Type | Department | Care Team | Description | +--------+---------+ + + + | 08/13/ | Office | [facility] | Bubba Ornelas | Abnormal heart rate | | 2018 | Visit | CARDIOLOGY [address] | MD Yimi [address] | (Primary Dx); | | | | [address] [place], | [address] [place] | Hyperlipidemia, | | | | [place] [address] | [place] [address] | unspecified | | | | [phone] | [phone] | hyperlipidemia type; | | | | [...] you to arrange an appointment. INSTRUCTIONS Etelvina Benitez 1950 Procedure: Left heart catheterization Day: Date: [...] procedure. 7. Make sure you have a local delivery driver to take you home. Your local delivery driver will also need to sign you [...] hospital line at and ask for nursing supervisor product inspection t o let them know you are [...] returned for follow-up visit and moved to [facility], having only returned recently. She ended up undergoing cervical fusion surgery in [facility] and did not have any further cardiology [...] 1975 [place] LYMPH NODE BIOPSY 1971 [place] NASAL SINUS SURGERY 1987 OTHER SURGICAL HISTORY Left 07/28/2014 Procedure: LEFT HEART CATH; Surgeon: Bubba Ornelas MD; Location: [facility] CARDIO VASC ULAR LAB ROTATOR CUFF [...] f rom consideration of consultation with an tester semiconductor packages if feasible. Patient also would b enefit [...] made to ensure accuracy; however, inadvertent computerized content strategy lead errors may be pre sent. Electronically signed by: Rafael Ornelas MD PhD [facility] 08/13/2017 documented in t his encounter Plan [...] + + + | EXTERNAL LAB: Erin TYPE | Routin | 07/18/2017 | | [...] MD | | | | | | ([id number]) on 08/13/2017 | | | | | [...]
--- OUTSIDE RECORDS SUMMARY | ~2019-03-02 | XMS | Encounter Summary ---
Demographics + + + | Address | [address] | | | [place] [address] | + + + | Home Phone | | + + + | Preferred Language | Unknown | + + + | Marital Status | Single | + + + | Episcopalian Affiliation | Unknown | + + + | Race | White | + + + | Ethnic Group | Other Race | + + + Author + + + | Author | [facility] | + + + | Organization | [facility] | + + + | Address | Unknown | + + + | Phone | Unavailable | + + + Support + + +---------+ + | Name | Relationship | Address | Phone | + + +---------+ + | Karen Unknown | ECON | Unknown | | + + +---------+ + Care Team Providers + +------+ + | Care Supervisor Education Name | Role | Phone | + [...] | 2019 | Visit | Medicine at [facility] | MD Macie [address] | | | | | [address] | [address] | | | | | Lazara Infante Mailcode: | [place], [place] | | | | | [address] [place], [place] | [address] | | | | | [address] | [phone] | | | | | [phone] | | | +--------+ + + + [...] might be differen t from the original. [facility] Intake Exam - [place] L[place] Lianne Benitez is a 67 y.o. female with a PMH significant for CAD, Mitral valve insufficie ncy, hypothyroidism, htn, neuropathy, DM, and depression/anxiety. She is admitted for skilled therapy following a hospitalization at [facility] 09/03-09/13 for CABG and MVR. She lives in [place], [place]. Hospital course was significant for: no [...] uring admit, was on tube feedings, saw FUNERAL PLANNER, then weaned off, asp precauations, diet was [...] mouth once daily. INSULIN GLARGINE U-300 CONC (TOUVANE SOLOSTAR U-300 INSULIN) 300 UNIT/ML (1.5 ML) [...] 20 mEq by mouth onc e daily. [id number] ACID ( MULTI) 27-800 MG-MCG ORAL TABLET [...] and imaging are reviewed from hospitalization. Labs: ([facility]) 09/13 WBC 11.2 HGB 9.8 HCT 30.9 [...] and labs 1hour prior to f/u at [facility] 09/19 at 11am cards f/u in 4 [...] orders - dysphagia diet, thin liquids ok FUNERAL PLANNER(dysphagia - reeval) and nutrition Aspiration precautions, HOB 30deg, 1:1 supervision for meals until cleared by FUNERAL PLANNER GERD Continue her PPI at home dose [...] other issues detailed above. Chris Eldridge MD [facility] Internal [facility] documented in this encounter Plan of Treatment [...]
--- OUTSIDE RECORDS SUMMARY | ~2019-03-02 | XMS | Encounter Summary ---
Demographics + + + | Address | [address] | | | [place] [address] | + + + | Home Phone [...] | Author | [facility] | | | and Dwayneana | + + + | Organization | [facility] | [...] Team Providers + +------+ + | Care Distributing Clerk Name | Role | Phone | [...] + + | 12/25/ | Telephone | [facility] | Bubba Maxwell | Lab Order | | 2019 | | [place] [address] | MD Yimi [address] | | | | | [place], | [address] [place] | | | | | [place] [address] | [place] [address] | | | | | [phone] | [phone] | | | | | | | [...]
--- OUTSIDE RECORDS SUMMARY | ~2019-03-02 | XMS | Encounter Summary ---
Demographics + + + | Address | [address] | | | [place] [address] | + + + | Home Phone | | + + + | Preferred Language | Unknown | + + + | Marital Status | Single | + + + | Mandaeism Affiliation | 1013 | + + + | Race | Unknown | + + + | Ethnic Group | Unknown | + + + Author + + + | Author | [facility] | | | and Dwayneana | + + + | Organization | [facility] | | | and [...] Team Providers + +------+ + | Care Pilot Fuel Engineer Name | Role | Phone | [...] + + | 08/28/ | Hospital | [facility] | Bubba Maxwell | | | 2017 | Encounter | MED CTR OR PRE OP | MD Yimi [address] | | | | | [address] [place] | [place] [facility] | | | | | [place] [address] | [place] [address] | | | | | [phone] | [phone] | | | | | | | [...]
--- OUTSIDE RECORDS SUMMARY | ~2019-03-02 | XMS | Encounter Summary ---
Demographics + + + | Address | [address] | | | [place] [address] | + + + | Home Phone [...] | [facility] | | | and Dwayneana | + + + | Organization | [facility] | | [...] Team Providers + +------+ + | Care Exit Booth Agent Name | Role | Phone | [...] obstructive | MD Yimi | [address] | | | | | pulmonary | [address] | [place], | | | | | disease, | St [place] | [place] | | | | | unspecified | [place], [place] | [address] | | | | | COPD type | [address] | Phone: | | | | | ([facility]) | Phone: | [phone] | | | | | | [phone] | Fax: | | | | | | Fax: | [phone] | | | | | | [phone] | | +--------+ + + + + [...] electrocardi | [address] | [address] | | | | | ogram (ECG) | [address] | [place], | | | | | (EKG) | [place], | [place] | | | | | Procedures | [place] | [address] | | | | | [place] | [address] | Phone: | | | | | | Phone: | [phone] | | | | | | [phone] | Fax: | | | | | | Fax: | [phone] | | | | | | [phone] | | +--------+--------+ + + + + Encounter Details +--------+---------+ + + + | Date | Type | Department | Care Team | Description | +--------+---------+ + + + | 08/13/ | Office | [facility] | Bubba Ornelas | Abnormal heart rate | | 2018 | Visit | CARDIOLOGY [address] | MD Yimi [address] | (Primary Dx); | | | | [place], | [address] [place] | Hyperlipidemia, | | | | [place] [address] | [place] [address] | unspecified | | | | [phone] | [phone] | hyperlipidemia type; | | | | [...] procedure. 7. Make sure you have a hyster driver to take you home. Your hyster driver will also need to sign you [...] hospital line at and ask for nursing char house supervisor t o let them know you [...] returned for follow-up visit and moved to [facility], having only returned recently. She ended up undergoing cervical fusion surgery in [facility] and did not have any [...] 1975 [place] LYMPH NODE BIOPSY 1971 [place] NASAL SINUS SURGERY 1987 OTHER SURGICAL HISTORY Left 07/28/2014 Procedure: LEFT HEART CATH; Surgeon: Bubba Ornelas MD; Location: [facility] CARDIO VASC ULAR LAB ROTATOR CUFF [...] f rom consideration of consultation with an bird cage assembler if feasible. Patient also would b [...] made to ensure accuracy; however, inadvertent computerized reports developer errors may be pre sent. Electronically signed by: Rafael Ornelas MD PhD [facility] 08/13/2017 documented in t his encounter Plan [...] MD | | | | | | ([id number]) on 08/13/2017 | | | | | [...]
--- OUTSIDE RECORDS SUMMARY | ~2019-03-02 | XMS | Encounter Summary ---
Demographics + + + | Address | [address] | | | [place] [address] | + + + | Home Phone | | + + + | Preferred Language | Unknown | + + + | Marital Status | Single | + + + | Gnosticism Affiliation | Unknown | + + + | Race | White | + + + | Ethnic Group | Other Race | + + + Author + + + | Author | [facility] | + + + | Organization | [facility] | + + + | Address | Unknown | + + + | Phone | Unavailable | + + + Support + + +---------+ + | Name | Relationship | Address | Phone | + + +---------+ + | Karen Unknown | ECON | Unknown | | + + +---------+ + Care Team Providers + +------+ + | Care Research Home Economist Name | Role | Phone | [...] | | | Lazara Infante Mailcode: | [place], [place] | | | | | [id number] [place], [place] | [address] | | | | | [address] | [phone] | | | | | [phone] | | | +--------+ + + + [...] might be different fro ashwini the original. [facility] Follow-Up: Jose Quinn Pulse is a 67 y.o. female with a PMHx significant for CAD, Mitral valve insuffic iency, HFr EF, PAD, cerebrovascular disease (?), tobacco abuse, hypothyroidism, htn, sarcoi dosis, peripheral neuropathy, DM2, dysphagia, falls, and depression/anxiety. She is admitted for skilled therapy following a hospitalization at [facility] 09/03-09/13 for CABG and MVR. Her hospital course was complicated by hepatic enceph alopathy, dysphagia and anorexia. She is seen today at [facility] in follow-up for Diabetes Management [...] 20 mEq by mouth onc e daily. [id number] ACID ( MULTI) 27-800 MG-MCG ORAL TABLET [...] Read by Dr Abdon Jon Labs from [facility]: 09/15 Na 141 K 4.5 Chl 99 [...] notes/history to help guide care TOMMY JohnsonC [facility] Division of Internal Medicine and Geriatrics [...]
--- OUTSIDE RECORDS SUMMARY | ~2019-03-02 | XMS | Encounter Summary ---
Demographics + + + | Address | [address] | | | [place] [address] | + + + | Home Phone [...] + | Author | [facility] | | | and Dwayneana | + + + | Organization | [facility] | | [...] Providers + +------+ + | Care Oil Boiler Name | Role | Phone | + [...] | myelopathy (Primary | | | | [place], [place] | [address] | Dx) | | | | [address] | | | | | | [phone] | | | +--------+ + + + [...] Lumbar Spondylosis ICD-9 Code 721.3 Etelvina Jean [facility] | [facility] | | presents to the fluoroscopy suite for fluoroscopically-guided | [facility] | | bilateral L4-L5 and L5-S1 facet [...] [address] | [place] | [phone] | | [facility] | | [address] | | | - IMAGING | | | | + + + + + documented in this encounter Visit Diagnoses + + | Diagnosis | + + | Lumbosacral spondylosis without myelopathy - Primary | + + documented in this encounter"
--- OUTSIDE RECORDS SUMMARY | ~2019-03-02 | XMS | Encounter Summary ---
Demographics + + + | Address | [address] | | | [place] [address] | + + + | Home Phone [...] + | Author | [facility] | | | and Dwanyeana | + + + | Organization | [facility] | | | and [...] Providers + +------+ + | Care Chlorine Operator Name | Role | Phone | [...] + + | 10/30/ | Office | [facility] | Bubba Maxwell | Stenosis of carotid | | 2018 | Visit | CARDIOLOGY [address] | MD Yimi [address] | artery, unspecified | | | | [place], | [address] [place] | laterality (Primary | | | | [place] [address] | [place] [address] | Dx); Functional | | | | [phone] | [phone] | murmur; | | | | | [...] procedure. 7. Make sure you have a truck driver's offsider to take you home. Your truck driver's offsider will also need to sign you ou [...] line at and ask for nursing supervisor cleaning and annealing t o let them know you are [...] since resolved. She was recently seen in [facility] consultation by pulmonology. Unfortunately she continues to [...] returned for follow-up visit and moved to [place], having only ret urned recently. She ended up undergoing cervical fusion surgery in [place] and did not brown ve any further [...] CV LHC; Surgeon: Bubba Maxwell MD; Location: [facility] CV LAB HYSTERECTOMY 1975 [place] LYMPH NODE BIOPSY 1971 [place] NASAL SINUS SURGERY 1987 OTHER SURGICAL HISTORY Left 07/28/2014 Procedure: LEFT HEART CATH; Surgeon: Bubba Maxwell MD; Location: [facility] CARDIO VASC ULAR LAB ROTATOR CUFF [...] rom consideration of consultation with an supervisor in charge if feasible. Patient also would b enefit [...] made to ensure accuracy; however, inadvertent computerized shipping and receiving specialist errors may be pre sent. Electronically signed by: Rafael Maxwell MD PhD [facility] 10/30/2017 documented in t his encounter Plan [...]
--- OUTSIDE RECORDS SUMMARY | ~2019-03-02 | XMS | Encounter Summary ---
Demographics + + + | Address | [address] | | | [place] [address] | + + + | Home Phone [...] | [facility] | | | and Dwayneana | + + + | Organization | [facility] | [...] Team Providers + +------+ + | Care Ends Down Checker Name | Role | Phone | + [...] + + | 12/25/ | Telephone | [facility] | Bubba Maxwell | Lab Order | | 2019 | | [address] | MD Yimi [address] | | | | | [place], | [address] [place] [address] [place] | | | | | [place] [address] | [place] [address] | | | | | [phone] | [phone] | | | | | | | [...]
--- OUTSIDE RECORDS SUMMARY | ~2019-03-02 | XMS | Encounter Summary ---
Demographics + + + | Address | [address] | | | [place] [address] | + + + | Home Phone [...] Author + + + | Author | [facility] | + + + | Organization | [facility] | + + + | Address | Unknown | + + + | Phone | Unavailable | + + + Support + + +---------+ + | Name | Relationship | Address | Phone | + + +---------+ + | Karen Unknown | ECON | Unknown | | + + +---------+ + Care Team Providers + +------+ + | Care Dog Warden Name | Role | Phone | + +------+ + PCP | Unavailable | + +------+ + Encounter Details +--------+ + + + + | Date | Type | Department | Care Team | Description | +--------+ + + + + | 10/08/ | Results | LAB CORE [address] | Tamar, Faculty | | | 1989 | Only | [address] | [phone] | | | | | [place] | | | | | | [address] | | | | | | [phone] | | | +--------+ + + + [...] from | | | | | | [facility] | | | | | | Consultants, [place], | | | | | | Comal arethree slides | | | | | [...] | + + + + + | [facility] | [address] | [place] [address] | | | PATHOLOGY | [address] | | | + + + + + documented in this encounter Visit Diagnoses Not on filedocumented in this encounter"
--- OUTSIDE RECORDS SUMMARY | ~2019-03-02 | XMS | Encounter Summary ---
Demographics + + + | Address | [address] | | | [place] [address] | + + + | Home Phone [...] Author | [facility] | | | and Dwayneana | + + + | Organization | [facility] | [...] Team Providers + +------+ + | Care Semiconductor Processing Technician Name | Role | Phone | + +------+ + | Matt Kinney MD | PCP | | + +------+ + Encounter Details +--------+ + + + + | Date | Type | Department | Care Team | Description | +--------+ + + + + | 05/28/ | Abstract | [facility] [place] | Aria, Layton A, | | | 2014 | | NEUROSURGERY [address] | DO [address] | | | | | [address] | [address] [place], [place] | | | | | [place] | [address] | | | | | [address] | | | | | | [phone] | | | +--------+ + + + [...]
--- OUTSIDE RECORDS SUMMARY | ~2019-03-02 | XMS | Encounter Summary ---
Demographics + + + | Address | [address] | | | [place] [address] | + + + | Home Phone | | + + + | Preferred Language | Unknown | + + + | Marital Status | Single | + + + | Episcopal Affiliation | Unknown | + + + [...] Team Providers + +------+ + | Care Preschool Adviser Name | Role | Phone | [...] | | | Lazara Infante Mailcode: | [place], [place] | | | | | [id number] [place], [place] | [address] | | | | | [address] | [phone] | | | | | [phone] | | | +--------+ + + + [...] might be different jarvis maradiaga the original. [facility] Follow-Up: Jose Benitez is a 67 y.o. female with a PMHx significant forCAD, Mitral valve insuff iciency,HFrEF, PAD, cerebrovascular disease (?), tobacco abuse,hypothyroidism, htn,q uiescent sarcoidosis, peripheralneuropathy, DM2,dysphagia, falls,and depression/anxiet godwin Todd is seen today for follow-up DM2 [...] complication, with long-term current use of insulin ([facility]) (primary encounter diagnosis) (E16.2) Hypoglycemia Hx of [...] she is on 1:1, will inquire with COURT ORDERLY to see if she can be cleared for eatin g independently. 30 min spent face to face with patient, >50% spent in counseling. Rosa Orozco PA-C [facility] Division of Internal Medicine and Geriatrics documented [...]
--- OUTSIDE RECORDS SUMMARY | ~2019-03-02 | XMS | Encounter Summary ---
Demographics + + + | Address | [address] | | | [place] [address] | + + + | Home Phone [...] + | Author | [facility] | | | and Dwayneana | + + + | Organization | [facility] | | | [...] Team Providers + +------+ + | Care Assembly Line Leader Name | Role | Phone | + +------+ + | Matt Kinney MD | PCP | | + +------+ + Encounter Details +--------+ + + + + | Date | Type | Department | Care Team | Description | +--------+ + + + + | 12/24/ | Hospital | [facility] | Gael Adam, | Right shoulder pain; | | 2013 | Encounter | MED CTR XRAY [address] | MD [address] | Right rotator cuff | | | | [place] | [place], [place] | tear | | | | [place] [address] | [address] | | | | | [phone] | | | +--------+ + + + [...] + | MISCELLANEOUS LAB | | | [phone] | + +---------+ + + | MISCELANIOUS LAB | | | [phone] | + +---------+ + + documented in this encounter Visit Diagnoses + + | Diagnosis | + + | Right shoulder pain Pain in joint, shoulder region | + + | Right rotator cuff tear Rotator cuff (capsule) sprain | + + documented in this encounter"
--- OUTSIDE RECORDS SUMMARY | ~2019-03-02 | XMS | Encounter Summary ---
Demographics + + + | Address | [address] | | | [place] [address] | + + + | Home Phone [...] [facility] | | | and Dwayneana | + + + | Organization | [facility], [...] Team Providers + +------+ + | Care Emergency Room Physician Name | Role | Phone | + +------+ + | Matt Kinney MD | PCP | | + +------+ + Encounter Details +--------+ + + + + | Date | Type | Department | Care Team | Description | +--------+ + + + + | 08/07/ | Hospital | [facility] | Gael Adam, | Lumbalgia; Lumbar | | 2013 | Encounter | MED CTR XRAY [address] | MD [address] | degenerative disc | | | | [place] | [place], [place] | disease | | | | [place] [address] | [address] | | | | | [phone] | | | +--------+ + + + [...] lumbar spine. Levoconvex scoliosis. 5 | | xnsnzz-rmllvsbwtrnzp-uykb vertebral bodies. Retrolisthesis of L3 on L4 [...] + | MISCELLANEOUS LAB | | | [phone] | + +---------+ + + | MISCELANIOUS LAB | | | [phone] | + +---------+ + + documented in this encounter Visit Diagnoses + + | Diagnosis | + + | Lumbalgia Lumbago | + + | Lumbar degenerative disc disease Degeneration of lumbar or lumbosacral intervertebral | | disc | + + documented in this encounter"
--- OUTSIDE RECORDS SUMMARY | ~2019-03-02 | XMS | Encounter Summary ---
Demographics + + + | Address | [address] | | | [place] [address] | + + + | Home Phone [...] + | Author | [facility] | | | and Dwayneana | + + + | Organization | [facility] | [...] Team Providers + +------+ + | Care Profile Mill Operator Tape Control Name | Role | Phone | + [...] Pre-op exam | Bubba | [address] | | | | | CAD | MD Yimi | [place], | | | | | (coronary | [address] | [place] | | | | | artery | St [place] | [address] | | | | | disease) | [place], [place] | Phone: | | | | | Procedures | [address] | [phone] | | | | | ECHO | Phone: | Fax: | | | | | Complete [place] | [phone] | [phone] | | | | | ECHO HEART | Fax: | | | | | | [place] | [phone] | | | | | | MPLETE W | | | | | | | DOPPLER [place] | | | | | | | [...] atherosclero | MD Yimi | [address] | | | | | sis of | [address] | [place], | | | | | unspecified | St [place] | [place] | | | | | type of | [place], [place] | [address] | | | | | vessel, | [address] | Phone: | | | | | nondalton or | Phone: | [phone] | | | | | graft | [phone] | Fax: | | | | | Preoperative | Fax: | [phone] | | | | | | [phone] | | | | | | examination, [...] | | | | | | STUDIES [place] | | | | | | | CV STRS TST | | | | | | | XERS&/OR RX | | | | | | | CONT ECG W/O | | | | | | | I&R [place] | | | | | | | [...] | [address] | [address] | | | | | stenosis of | [place], [place] | [facility] | | | | | spinal canal | [address] | [facility] [place] | | | | | [place] | Phone: | [address] Phone: | | | | | stenosis of | [phone] | [phone] | | | | | cervical | Fax: | Fax: | | | | | region | [phone] | [phone] | | | | | Cervical | [...] + + | 06/24/ | Office | [facility] | Bubba Maxwell | Pre-op exam (Primary | | 2014 | Visit | CARDIOLOGY [address] | MD Y[address] | Dx); CAD (coronary | | | | [address], | [address] [place] | artery disease); | | | | [place] [address] | [place] [address] | Tobacco use disorder | | | | [phone] | [phone] | | | | | | | [...] Procedure Laterality Date Lymph node biopsy 1971 [place] Hysterectomy 1975 [place] Rotator cuff repair [...] benefit from consideration of consultation with an behavior therapist if feasible. 3. Tobacco cessation - this [...] made to ensure accuracy; however, inadvertent computerized hvac engineer errors may be pre sent. Electronically signed [...] | Signed by: Rafael Maxwell MD PhD [facility] 07/15/2014, 12:40 | | + + + + + + | Narrative | Performed At | + + + | NUCLEAR MEDICINE STRESS TEST REPORT | [facility] | | Patient Name: Etelvina Benitez Study Date: 07/15/2014 Primary | [facility] | | Care Provider: Matt Kinney : | [facility] | | 1950 Age: 63 y.o. Gender: [...] + | [facility] | [address] | [place] | [phone] | | [facility] | | [address] | | | - IMAGING | | | | + + + + + ECHO Complete (07/15/2014 12:20 PM PDT) + + | Specimen | + + | | + + + + + | Narrative | Performed At | + + + | [facility] ECHOCARDIOGRAM REPORT | [facility] | | STUDY DATE: 07/15/2014 PATIENT NAME: Etelvina Benitez : | [facility] | | 1950 PCP: Matt Kinney [facility] | | HISTORY/DIAGNOSIS: CAD, preop evaluation [...] PhD FACC | | | 07/15/2014 12:21 Front Office Supervisor: David Dudley RDMS | | + + + + + + + + | Performing | Address | City/State/Zipcode | Phone Number | | Organization | | | | + + + + + | [facility] | [address] | [place] | [phone] | | [facility] | | [address] | | | - IMAGING | | | | + + + + + documented in this encounter Visit Diagnoses + + | Diagnosis | + + | Pre-op exam - Primary Preoperative examination, unspecified | + + | CAD (coronary artery disease) Coronary atherosclerosis of unspecified type of vessel, | | nondalton or graft | + + | Tobacco use disorder | + + documented in this encounter
--- OUTSIDE RECORDS SUMMARY | ~2019-03-02 | XMS | Encounter Summary ---
Demographics + + + | Address | [address] | | | [place] [address] | + + + | Home Phone | | + + + | Preferred Language | Unknown | + + + | Marital Status | Single | + + + | Denominational Affiliation | 1013 | + + + | Race | Unknown | + + + | Ethnic Group | Unknown | + + + Author + + + | Author | [facility] | | | and Dwayneana | + + + | Organization | [facility] [...] Team Providers + +------+ + | Care Combined Rail Operator Name | Role | Phone | [...] + | 04/09/ | Telephone | [facility] | Zen Carey | Other | | 2013 | | NEUROLOGY ESME Quijano MD Need updated | | | | | [address] [facility] [address], | address | | | | | [address] [place] | | | | | | [place] [address] | | | | | | [phone] | | | +--------+ + + + [...]
--- OUTSIDE RECORDS SUMMARY | ~2019-03-02 | XMS | Encounter Summary ---
Demographics + + + | Address | [address] | | | [place] [address] | + + + | Home Phone [...] Author | [facility] | | | and Dwayneana | + + + | Organization | [facility] | | | and Dwayneana | + + + | Address | Unknown | + + + | Phone | Unavailable | + + + Support + + +---------+ + | Name | Relationship | Address | Phone | + + +---------+ + | Andrew Couch | ECON | Unknown | | + + +---------+ + | Shipla Couch | ECON | Unknown | | + + +---------+ + Care Team Providers + +------+ + | Care Duralumin Mechanic Name | Role | Phone | [...] | | | | | | [place] [address] | | | | | | [phone] | | | +--------+ + + + [...]
--- OUTSIDE RECORDS SUMMARY | ~2019-03-02 | XMS | Encounter Summary ---
Demographics + + + | Address | [address] | | | [place] [address] | + + + | Home Phone [...] Providers + +------+ + | Care Service Secretary Name | Role | Phone | + [...]
--- OUTSIDE RECORDS SUMMARY | ~2019-03-02 | XMS | Encounter Summary ---
Demographics + + + | Address | [address] | | | [place] [address] | + + + | Home Phone [...] + + + | Author | [facility] | | | and Dwayneana | + + + | Organization | [facility] | | | and Dwayneana [...] Team Providers + +------+ + | Care Nuclear Medical Tech Name | Role | Phone | + +------+ + | Margie Gonzalez | PCP | | + +------+ + Encounter Details +--------+---------+ + + + | Date | Type | Department | Care Team | Description | +--------+---------+ + + + | 09/04/ | Surgery | [facility] | ZackBubba bowden | CV LHC | | 2018 | | MED CTR CV INTRA OP | MD Yimi [address] | | | | | [address] | [address] [place] | | | | | [place], [place] | [place] [address] | | | | | [address] | [phone] | | | | | [phone] | | | +--------+---------+ + + + [...]
--- OUTSIDE RECORDS SUMMARY | ~2019-03-02 | XMS | Encounter Summary ---
Demographics + + + | Address | [address] | | | [place] [address] | + + + | Home Phone [...] | Author | [facility] | | | and Dwayneana | + + + | Organization | [facility] | | | [...] Team Providers + +------+ + | Care Moisture Tester Name | Role | Phone | [...] | Gael Ni MD | [address] | | | | | shoulder | [address] | [place], | | | | | pain Right | [address] | [place] | | | | | rotator cuff | [place], | [address] | | | | | tear | [place] [address] | Phone: | | | | | Procedures | Phone: | [phone] | | | | | MRI Shoulder | [phone] | Fax: | | | | | Right | Fax: | [phone] | | | | | Arthrogram w | [phone] | | | | | | Contrast [...] + + | 12/24/ | Office | [facility] [place] | Gael Adam, | Right shoulder pain | | 2013 | Visit | PHYSIATRY [address] | [address] | (Primary Dx); Right | | | | [address] [place], | [place], [place] | rotator cuff tear; | | | | [place] [address] | [address] | Lumbalgia; Facet | | | | [phone] | | arthritis of lumbar | | [...] office note has been dictated. Job ID# [id number] signed by Gael Adam MD at 12/24/2013 2:38 PM Mildred Dutta RN - 12/24/2013 1:49 PM PDTPatient states 5/10 pain to lower back that radiates to legs, states new problem of right shoulder pain. Gael Pickard MD - 12/24/2013 12:00 AM PDT [facility] [address] [place] [address] FAX: [phone] OFFICE VISIT PHYSICAL MEDICINE REHABILITATION PROGRESS NOTE [...] Jr, MD GEM / PAP JOB #: [id number] cc: MD Matt Conde MD Tdocumented in [...] + | MISCELLANEOUS LAB | | | [phone] | + +---------+ + + | MISCELANIOUS LAB | | | [phone] | + +---------+ + + documented in [...]
--- OUTSIDE RECORDS SUMMARY | ~2019-03-02 | XMS | Encounter Summary ---
Demographics + + + | Address | [address] | | | [place] [address] | + + + | Home Phone | | + + + | Preferred Language | Unknown | + + + | Marital Status | Single | + + + | Tenriism Affiliation | 1013 | + + + | Race | Unknown | + + + | Ethnic Group | Unknown | + + + Author + + + | Author | [facility] | | | and Dwayneana | + + + | Organization | [facility] | | | and Dwayneana | [...] Providers + +------+ + | Care Oil Well Fishing Tool Operator Name | Role | Phone | [...] PHYSIATRY [address] | MD [address] | | | | | [place], | [place], [place] | | | | | [place] [address] | [address] | | | | | [phone] | | | +--------+--------+ + + + [...]
--- OUTSIDE RECORDS SUMMARY | ~2019-03-02 | XMS | Encounter Summary ---
Demographics + + + | Address | [address] | | | [place] [address] | + + + | Home Phone | | + + + | Preferred Language | Unknown | + + + | Marital Status | Single | + + + | Baptism Affiliation | Unknown | + + + | Race | White | + + + | Ethnic Group | Other Race | + + + Author + + + | Author | [facility] | + + + | Organization | [facility] | + + + | Address | Unknown | + + + | Phone | Unavailable | + + + Support + + +---------+ + | Name | Relationship | Address | Phone | + + +---------+ + | Karen Unknown | ECON | Unknown | | + + +---------+ + Care Team Providers + +------+ + | Care Forming Machine Operator Name | Role | Phone [...] | | | Lazara Infante Mailcode: | [place], [place] | | | | | [id number] [place], [place] | [address] | | | | | | [phone] | | | | | [phone] | | | +--------+ + + + [...]
--- OUTSIDE RECORDS SUMMARY | ~2019-03-02 | XMS | Encounter Summary ---
Demographics + + + | Address | [address] | | | [place] [address] | + + + | Home Phone | | + + + | Preferred Language | Unknown | + + + | Marital Status | Single | + + + | Jewish Affiliation | Unknown | + + + [...] Team Providers + +------+ + | Care Camera Tuning Engineer Name | Role | Phone | [...] | | | Lazara Infante Mailcode: | [place], [place] | | | | | [id number] [place], [place] | [address] | | | | | [address] | [phone] | | | | | [phone] | | | +--------+ + + + [...]
--- OUTSIDE RECORDS SUMMARY | ~2019-03-02 | XMS | Encounter Summary ---
Demographics + + + | Address | [address] | | | [place] [address] | + + + | Home Phone | | + + + | Preferred Language | Unknown | + + + | Marital Status | Single | + + + | Bahai Affiliation | 1013 | + + + | Race | Unknown | + + + | Ethnic Group | Unknown | + + + Author + + + | Author | [facility] | | | and Dwayneana | + + + | Organization | [facility] | | [...] Team Providers + +------+ + | Care Hop Weigher Name | Role | Phone | + [...] + + | 01/10/ | Office | [facility] | Joseph Aranda | 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
--- OUTSIDE RECORDS SUMMARY | ~2019-03-02 | XMS | Encounter Summary ---
Demographics + + + | Address | [address] | | | [place] [address] | + + + | Home Phone | | + + + | Preferred Language | Unknown | + + + | Marital Status | Single | + + + | Gnosticist Affiliation | [id number] | + + + | Race | Unknown | + + + | Ethnic Group | Unknown | + + + Author + + + | Author | [facility] | | | and Dwayneana | + + + | Organization | [facility] | [...] Providers + +------+ + | Care Retail Zone Specialist Name | Role | Phone | [...] + + | 07/16/ | Office | [facility] | Bubba Maxwell | CAD (coronary artery | | 2014 | Visit | CARDIOLOGY [address] | MD Yimi [address] | disease) (Primary | | | | [place], | [address] [place] | Dx); Carotid artery | | | | [place] [address] | [place] [address] | disease (HCC); | | | | [phone] | [phone] | Tobacco use disorder | | | [...] Procedure Laterality Date Lymph node biopsy 1971 [place] Hysterectomy 1975 [place] Rotator cuff repair [...] benefit from consideration of consultation with an trade manager if feasible. Patient also would bene fit [...] made to ensure accuracy; however, inadvertent computerized chorus dancer errors may be pre sent. Electronically signed [...] carotid artery disease, history of endarterectomy | [facility] | | COMPARISON: CAROTID ULTRASOUND MARCH 2011 [...] [address] | [place] | [phone] | | [facility] | | [address] | | | - IMAGING | | [...] RECORD NUMBER: | MEDICAL CENTER | | [id number] DATE OF PROCEDURE: 07/28/2014 FURNACE COMBINATION ANALYST: | - IMAGING | | Bubba Maxwell MD, PhD, [facility] PROCEDURES | | | PERFORMED: Coronary Angiography [...] [address] | [place] | [phone] | | [facility] | | [address] | | | - IMAGING | | | | + + + + + documented in this encounter Visit Diagnoses + + | Diagnosis | + + | CAD (coronary artery disease) - Primary Coronary atherosclerosis of unspecified type | | of vessel, ugashik or graft | + + | Carotid artery disease (HCC) Unspecified disorders of arteries and arterioles | + + | Tobacco use disorder | + + documented in this encounter
--- OUTSIDE RECORDS SUMMARY | ~2019-03-02 | XMS | Encounter Summary ---
Demographics + + + | Address | [address] | | | [place] [address] | + + + | Home Phone [...] + + + | Author | [facility] | | | and Dwayneana | + + + | Organization | [facility] | | [...] Team Providers + +------+ + | Care Decision Support Analyst Name | Role | Phone | [...] W | | | | | [place], | [address] [place] | | | | | [place] [address] | [place] [address] | | | | | [phone] | [phone] | | | | | | | [...]
--- OUTSIDE RECORDS SUMMARY | ~2019-03-02 | XMS | Encounter Summary ---
Demographics + + + | Address | [address] | | | [place] [address] | + + + | Home Phone [...] + + + | Author | [facility] | | | and Dwayneana | + + + | Organization | [facility] | | | and Dwayneana [...] Team Providers + +------+ + | Care Captain Fishing Vessel Name | Role | Phone | + [...] [address] | | | | | [place], | [address] [place] | | | | | [place] [address] | [place] [address] | | | | | [phone] | [phone] | | | | | | | [...]
--- OUTSIDE RECORDS SUMMARY | ~2019-03-02 | XMS | Encounter Summary ---
Demographics + + + | Address | [address] | | | [place] [address] | + + + | Home Phone [...] Author | [facility] | | | and Dwayneana | + + + | Organization | [facility] | | | and [...] Team Providers + +------+ + | Care Adjunct Nursing Faculty Name | Role | Phone | + +------+ + | Matt Kinney MD | PCP | | + +------+ + Encounter Details +--------+ + + + + | Date | Type | Department | Care Team | Description | +--------+ + + + + | 05/28/ | Hospital | [facility] | Layton Knapp, | DDD (degenerative | | 2015 | Encounter | MED CTR XRAY [address] | DO [address] | disc disease), | | | | [place] | [address] [place], [place] | cervical; Neuropathy | | | | [place] [address] | [address] | | | | | [phone] | | | +--------+ + + + [...] + | MISCELLANEOUS LAB | | | [phone] | + +---------+ + + | MISCELANIOUS LAB | | | [phone] | + +---------+ + + documented in this encounter Visit Diagnoses + + | Diagnosis | + + | DDD (degenerative disc disease), cervical Degeneration of cervical intervertebral | | disc | + + | Neuropathy Mononeuritis of unspecified site | + + documented in this encounter"
--- OUTSIDE RECORDS SUMMARY | ~2019-03-02 | XMS | Encounter Summary ---
Demographics + + + | Address | [address] | | | [place] [address] | + + + | Home Phone [...] | [facility] | | | and Dwayneana | + + + | Organization | [facility] | | [...] Providers + +------+ + | Care Instrument Installer Name | Role | Phone | [...] | Lumbosacral | [place], | [address] | | | | | spondylosis | Javon Bautista MD | [place], | | | | | without | [address] | [place] | | | | | myelopathy | ST [place] | [address] | | | | | Procedures | [place], [place] | Phone: | | | | | [place] INJ | [address] | [phone] | | | | | DX/THER AGNT | Phone: | Fax: | | | | | [place] | [phone] | [phone] | | | | | FACET JOINT, | Fax: | | | | | | LUMBAR/SAC, | [phone] | | | | | | 1ST LEVEL | | | | | | | [place] INJ | | | | | | | DX/THER AGNT | | | | | | | [place] | | | | | | | FACET JOINT, | | | | | | | LUMBAR/SAC, | | | | | | | 2ND LEVEL | | | | | | | [place] | | | | | | | [...] + + + + | 03/11/ | [facility] | [facility] | Javon Ivy | Lumbosacral | | 2013 | Encounter | MED CTR XRAY [address] | T, [address] | spondylosis without | | | | [place] | [place], [place] | myelopathy | | | | [place] [address] | [address] | | | | | [phone] | | | | | | | Hot Dimpling Machine Operator Wsashwini | | +--------+ + + + [...] Bilateral Lumbar Facet Steroid Injections Diagnosis: | [place] | | Lumbar Spondylosis ICD-9 Code 721.3 Etelvina Jean Pulse | [facility] | | presents to the fluoroscopy suite for fluoroscopically-guided [facility] | | bilateral L4-L5 and L5-S1 [...] [address] | [place] | [phone] | | [facility] | | [address] | | | - IMAGING | | [...]
--- OUTSIDE RECORDS SUMMARY | ~2019-03-02 | XMS | Encounter Summary ---
Demographics + + + | Address | [address] | | | [place] [address] | + + + | Home Phone [...] | Author | [facility] | | | and Dwayneana | + + + | Organization | [facility] | | | and [...] Team Providers + +------+ + | Care Licensed Mortgage Loan Officer Name | Role | Phone | [...] + + | 09/29/ | Telephone | [facility] | Gael Adam, | Medication | | 2013 | | PHYSIATRY [address] | MD [address] | Management | | | | [place], | [place] | | | | | [place] [address] | [address] | | | | | [phone] | | | +--------+ + + + [...]
--- OUTSIDE RECORDS SUMMARY | ~2019-03-02 | XMS | Encounter Summary ---
Demographics + + + | Address | [address] | | | [place] [address] | + + + | Home Phone [...] | [facility] | | | and Dwayneana | + + + | Organization | [facility] | | | and Dwayneana | + + + | Address | Unknown | + + + | Phone | Unavailable | + + + Support + + +---------+ + | Name | Relationship | Address | Phone | + + +---------+ + | Andrew Couch | ECON | Unknown | | + + +---------+ + | Shilpa Cocuh | ECON | Unknown | | + + +---------+ + Care Team Providers + +------+ + | Care Irish Moss Bleacher Name | Role | Phone | + +------+ + | Matt Kinney MD | PCP | | + +------+ + Reason for Visit + + + | Reason | Comments | + + + | Imaging Only | | + + + Encounter Details +--------+ + + + + | Date | Type | Department | Care Team | Description | +--------+ + + + + | 08/18/ | Telephone | [facility] | Nestor Nice | Imaging Only | | 2014 | | SURGERY [address] | MD Alma, FACS [address] | | | | | [address] [place], [place] | [address] [facility] | | | | | [address] | [place] [address] | | | | | [phone] | [phone] | | | | | | | [...]
--- OUTSIDE RECORDS SUMMARY | ~2019-03-02 | XMS | Clinical Summary ---
Demographics + + + | Address | [address] | | | [place] [address] | + + + | Home Phone [...] + | Author | [facility] | | | and Dwayneana | + + + | Organization | [facility] | | | and Dwayneana [...] Team Providers + +------+ + | Care Vascular Ultrasound Technician Name | Role | Phone | [...] | + +---+ + + | Overview: [facility] 11/13/2017, Proximally occluded dominant RCA | [...] whether | | | | | | umkumiut or | | | | | | [...] | | | | | | n [place] | | | | | + +--------+ [...] | ETELVINA WIGGINS Room Number Patient Number [id number] Date of | | | Study 01/15/2019 Visit Number [id number] | | | Referring Physician YIMI ORNELAS MD Accession | | | [id number] Legal Records Manager CONOR VILLASEÑOR Number | | | Date of 1950 Interpreting | | | YIMI ORNELAS MD | | | Physician Age 68 year(s) Nurse Gender | | | Female Stress Grants Analyst Procedure Type | | | of Study [...] WIGGINS Room Number Patient Number | | [id number] Date of Study 01/15/2019 Visit Number [id number] | | Referring Physician YIMI ORNELAS MD Legal Records Manager | | CONOR VILLASEÑOR Number Date of [...] +--------+ +---------+--------+ | BCBS | BCBS | [id number] | | | | PPO | | | FEDERA | | 017-Pr | | | | | | L FEP | | esent | | | | + +--------+ +--------+ +---------+--------+ | MEDICARE | MEDICA | [id number] | 10/22/19 | [phone] | | Medica | | | RE | | 15-Pre | 5 | | re | | | PART A | | sent | | | | | | AND B | | | | | | + +--------+ +--------+ +---------+--------+ | AETNA SENIOR | AMERIC | [id number] | 04/23/19 | [phone] | | Indemn [...] | 1951 | [phone] | [place] [address] | | | christian | | | 4 (Home) | | + +--------+ +--------+ + + Advance Directives + + + + + | Type | Date Recorded | Patient | Explanation | | | | Stockfeed Miller | | + + + + + | Power of | | | | | Blanking Machine Operator | | | | + + + + + | Advance | 05/28/2014 2:20 | | | | Directive | PM | | | + + + + +
--- OUTSIDE RECORDS SUMMARY | ~2019-03-02 | XMS | Encounter Summary ---
Demographics + + + | Address | [address] | | | [place] [address] | + + + | Home Phone | | + + + | Preferred Language | Unknown | + + + | Marital Status | Single | + + + | Rastafari Affiliation | Unknown | + + + | Race | White | + + + | Ethnic Group | Other Race | + + + Author + + + | Author | [facility] | + + + | Organization | [facility] | + + + | Address | Unknown | + + + | Phone | Unavailable | + + + Support + + +---------+ + | Name | Relationship | Address | Phone | + + +---------+ + | Karen Unknown | ECON | Unknown | | + + +---------+ + Care Team Providers + +------+ + | Care Assistant Professor Nurse Education Name | Role | Phone | [...] 09/19/ | Documentati | General Internal | Bhatri Malik, | Care Coordination | | 2019 | on | Medicine at Offsite | [address] [place] [address] | | | | | [address] [facility] [address] | [address] | | | | | Lazara Infante Mailcode: | [place], [place] | | | | | [id number] [place], [place] | [address] | | | | | | [phone] | | | | | [phone] | | | +--------+ + + + [...]
--- OUTSIDE RECORDS SUMMARY | ~2019-03-02 | XMS | Encounter Summary ---
Demographics + + + | Address | [address] | | | [place] [address] | + + + | Home Phone [...] | [facility] | | | and Dwayneana | + + + | Organization | [facility] | | [...] Team Providers + +------+ + | Care Tariff Compiler Name | Role | Phone | + +------+ + | Matt Kinney MD | PCP | | + +------+ + Reason for Visit Diagnostic/Screening (Routine) +--------+--------+ [...] atherosclero | MD Yimi | [address] | | | | | sis of | [address] | [place], | | | | | unspecified | St [place] | [place] | | | | | type of | [place], [place] | [address] | | | | | vessel, | [address] | Phone: | | | | | [place] | Phone: | [phone] | | | | | graft | [phone] | Fax: | | | | | Preoperative | Fax: | [phone] | | | | | | [phone] | | | | | | examination, [...] | | | | | | STUDIES [place] | | | | | | | CV STRS TST | | | | | | | XERS&/OR RX | | | | | | | CONT ECG W/O | | | | | | | I&R [place] | | | | | | | [...] + + | 07/15/ | Hospital | [facility] | Bubba Maxwell | | | 2015 | Encounter | MED CTR NUCLEAR | MD Yimi [address] | | | | | MEDICINE [address] | [address] [place] | | | | | [place], | [place] [address] | | | | | [place] [address] | [phone] | | | | | [phone] | | | +--------+ + + + [...] in this encounter Administered Medications + +--------+ + +------+------+ | Medication Order | MAR | Action | Dose | Rate | Site | | | Action | Date | | | | + +--------+ + +------+------+ | technetium TC-[id number] sestamibi | Given | 07/16/19 | 33.8 | | | | (CARDIOLITE) injection 30 | | 15 12:26 | -millicu | | | | millicurie 30 -millicurie, | | PM PDT | liborio | | | | Intravenous, ONCE PRN, Other, | | | | | | | Starting 07/15/14 at 1225, For | | | | | | | 1 dose, Nuclear Medicine | | | | | | + +--------+ + +------+------+ +---+---+ | | | +---+---+ documented in this encounter"
--- OUTSIDE RECORDS SUMMARY | ~2019-03-02 | XMS | Encounter Summary ---
Demographics + + + | Address | [address] | | | [place] [address] | + + + | Home Phone [...] + | Author | [facility] | | | and Dwayneana | + + + | Organization | [facility] [...] Team Providers + +------+ + | Care Harp Repairer Name | Role | Phone | + +------+ + | Margie Gonzalez | PCP | | + +------+ + Reason for Visit +--------+ + | Reason | Comments | +--------+ + | Other | concern about going to [place] | +--------+ + Encounter Details +--------+ + + + + | Date | Type | Department | Care Team | Description | +--------+ + + + + | 02/28/ | Telephone | [facility] | Bubba Maxwell | Other (concern about | | 2017 | | [address] | MD Y[address] | going to [place]) | | | | [place], | [address] [place] | | | | | [place] [address] | [place] [address] | | | | | [phone] | [phone] | | | | | | | [...]
--- OUTSIDE RECORDS SUMMARY | ~2019-03-02 | XMS | Encounter Summary ---
Demographics + + + | Address | [address] | | | [place] [address] | + + + | Home Phone [...] + | Author | [facility] | | | and Dwayneana | + + + | Organization | [facility] | | | [...] Team Providers + +------+ + | Care Turntable Operator Name | Role | Phone | + +------+ + | Margie Gonzalez | PCP | | + +------+ + Reason for Visit +--------+ + | Reason | Comments | +--------+ + | Other | lump at harvest site | +--------+ + Encounter Details +--------+ + + + + | Date | Type | Department | Care Team | Description | +--------+ + + + + | 10/22/ | Telephone | [facility] | Bubba Maxwell | Other (lump at | | 2018 | | [address] | MD Y[address] | harvest site) | | | | [place], | [address] [place] | | | | | [place] [address] | [place] [address] | | | | | [phone] | [phone] | | | | | | | [...]
--- OUTSIDE RECORDS SUMMARY | ~2019-03-02 | XMS | Encounter Summary ---
Demographics + + + | Address | [address] | | | [place] [address] | + + + | Home Phone [...] | Author | [facility] | | | and Dwayneana | + + + | Organization | [facility] | | [...] Team Providers + +------+ + | Care Catch Basin Cleaner Name | Role | Phone | [...] | Mitral | Bubba | [address] | | | | | valve | MD Yimi | [place], | | | | | insufficienc | [address] | [place] | | | | | y, | [place] | [address] | | | | | unspecified | [place], [place] | Phone: | | | | | etiology | [address] | [phone] | | | | | Procedures | Phone: | Fax: | | | | | ECHO | [phone] | [phone] | | | | | Transesophag | Fax: | | | | | | eal (IAIN) | [phone] | | | | | | UT ECHO | | | | | | | TRANSESOPHAG | | | | | | | R-T 2D | | | | | | | W/PRB IMG | | | | | | | ACQUISJ I&R | | | | | | | UT DOPPLER | | | | | | | ECHO | | | | | | | HEART,COMPLE | | | | | | | TE UT | | | | | | | [...] + + | 11/27/ | Office | [facility] | Bubba Ornelas | Abnormal heart rate | | 2017 | Visit | CARDIOLOGY [address] | MD Y[address] | (Primary Dx); Poor | | | | [place], | [address] [place] | circulation; | | | | [place] [address] | [place] [address] | Stenosis of carotid | | | | [phone] | [phone] | artery, unspecified | | | | [...] Echocardiogram-IAIN Date: Check-In Time: Check in at [facility] Instructions: 1. Nothing to eat or drink 6 hours prior 2. Take all of your regular medications the morning of the procedure with a small sip of w ater. 3. The procedure lasts approximately one-half hour 4. You will stay in same day surgery for approximately 2 hours after the procedure. 5. Make sure you have a local truck driver to take you home from the procedure. Your local truck driver will ne ed to [...] CV LHC; Surgeon: Bubba Ornelas MD; Location: [facility] CV LAB CARDIAC CATHERIZATION N/A 11/13/2017 Procedure: CV LHC; Surgeon: Bubba Ornelas MD; Location: [facility] CV LAB HYSTERECTOMY 1975 [place] LYMPH NODE BIOPSY 1971 [place] NASAL SINUS SURGERY 1987 OTHER SURGICAL HISTORY [...] reviewed by me with the patient today: [facility] 11/13/2017, interpreted and reviewed by me [...] f rom consideration of consultation with an product transfer pumper if feasible. Patient also would b enefit [...] made to ensure accuracy; however, inadvertent computerized spike maker errors may be pre sent. Electronically signed by: Rafael Ornelas MD PhD [facility] 11/27/2017 documented in t his encounter Plan [...] (IAIN) Demographics Patient | | | Name [facility] Room Number [facility] | | | LAB ROSALIE | | | POOL Patient Number [id number] Date of Study | | | 12/25/2017 Visit Number [id number] Accession | | | [id number] Interpreting YIMI ORNELAS MD Number | | | Physician Date of 1950 | | | Referring YIMI ORNELAS MD | | | Physician Age 67 | | | year(s) News Videographer LIZETH SUMNER [facility] Gender | | | Female Nurse | | | Stress Outpatient Services Director Procedure Type of Study IAIN | | [...] LAB ROSALIE KAUFMAN Patient Number | | [id number] Date of Study 12/25/2017 Visit Number [id number] Accession | | [id number] Interpreting YIMI ORNELAS MD Number | | Physician Date of 1950 Referring YIMI ORNELAS MD | | Physician Age 67 year(s) News Videographer LIZETH | | BIANCA SUMNER Gender Female [...]
--- OUTSIDE RECORDS SUMMARY | ~2019-03-02 | XMS | Encounter Summary ---
Demographics + + + | Address | [address] | | | [place] [address] | + + + | Home Phone [...] Author | [facility] | | | and Dwayneana | + + + | Organization | [facility] [...] Team Providers + +------+ + | Care Address Change Clerk Name | Role | Phone | [...] + + | 05/04/ | Office | [facility] | Zen Carey | Cervical stenosis of | | 2015 | Visit | NEUROLOGY ESME | MD Macie Need updated | spinal canal | | | | [address] [facility], | address | (Primary Dx); | | | | [address] [place] | | Neuropathy; Tremor; | | | | [place] [address] | | Imbalance | | | | [phone] | | | +--------+---------+ + + + [...] eat for 3 days in a row 2276-[address] [place] [address]. All righ ts reserved. This information is not intended as a substitute for professional medical care. Always follow your healthcare professional's instructions. documented in this encounter Progress Notes Zen Carey MD - 05/04/2014 11:18 AM PSTFormatting of this note might be differen t from the original. Zen Carey MD [address] [place] [address], [address] [place] [address] Neurology Outpatient ProgressNote Patient ID: Ms. Benitez [...] (151 lb) | BMI 25.13 kg/ m2 Royal Sleepiness Scale: 9 General: well developed and [...] . Electronically signed by: Zen Carey MD, 05/04/2014 11:35 documented in this encounter Plan of Treatment [...]
--- OUTSIDE RECORDS SUMMARY | ~2019-03-02 | XMS | Encounter Summary ---
Demographics + + + | Address | [address] | | | [place] [address] | + + + | Home Phone [...] | Author | [facility] | | | and Dwayneana | + + + | Organization | [facility] | | [...] Team Providers + +------+ + | Care Pacs Specialist Name | Role | Phone | [...] | | | | y Lumbalgia | [address] | | | | | | Lumbar | [place], | | | | | | facet | [place] [address] | | | | | | arthropathy | Phone: | | | | | | | [phone] | | | | | | | Fax: | | | | | | | [phone] | | +--------+ + + + + + Reason for Visit + + + | Reason | Comments | + + + | Leg Pain | bilateral legs | + + + Encounter Details +--------+---------+ + + + | Date | Type | Department | Care Team | Description | +--------+---------+ + + + | 09/26/ | Office | [facility] | Gael Adam, | Lumbar radiculopathy | | 2013 | Visit | PHYSIATRY [address] | [address] | (Primary Dx); | | | | [place], | [place], [place] | Lumbalgia; Lumbar | | | | [place] [address] | [address] | facet arthropathy; | | | | [phone] | | Nocturnal leg | | | | | | cramps; Cervicalgia; | | | [...] encounter Progress Notes Gael Adam MD - 09/26/2013 10:14 AM PDTThis office note has been dictated. Job ID# [id number] signed by Gael Adam MD at 09/26/2013 [...] 12:00 AM PDT [facility] [address] [place] [address] [place] [id number] FAX: [phone] OFFICE VISIT PHYSICAL MEDICINE REHABILITATION PROGRESS NOTE [...] extremity. Greater than 30 minutes was spent cnui-ju-wemi today with Ms. Benitez, over half of which was spent formulating and discussing her medical treatment plan. Thank you for allowing me to be involved in the care of your patient. If you have any questions regarding the care of Ms Stefanie Benitez please do not hesitate to call. Gael Adam Jr, MD [facility] JOB #: [id number] cc: Tracey Kinney MD Tdocumented in this [...]
--- OUTSIDE RECORDS SUMMARY | ~2019-03-02 | XMS | Encounter Summary ---
Demographics + + + | Address | [address] | | | [place] [address] | + + + | Home Phone [...] Author | [facility] | | | and Dwayneana | + + + | Organization | [facility] | | | and [...] Team Providers + +------+ + | Care Corn Picker Name | Role | Phone | + +------+ + | Margie Gonzalez | PCP | | + +------+ + Encounter Details +--------+ + + + + | Date | Type | Department | Care Team | Description | +--------+ + + + + | 01/10/ | Hospital | [facility] | Joseph Aranda | Dyspnea, unspecified | | 2018 | Encounter | MED CTR PULMONARY | MD Avin[address] | type | | | | FUNCTION [address] | [place] | | | | | [place], | [place] [address] | | | | | [place] [address] | [phone] | | | | | [phone] | | | +--------+ + + + [...] | | Joseph Aranda MD 01/11/2018 10:57[facility] | | | CENTER | | [...] Aranda MD 01/11/2018 10:57 | | |[facility] | | | | | + + + documented in this encounter Visit Diagnoses + + | Diagnosis | + + | Dyspnea, unspecified type | + + documented in this encounter"
--- OUTSIDE RECORDS SUMMARY | ~2019-03-02 | XMS | Encounter Summary ---
Demographics + + + | Address | [address] | | | [place] [address] | + + + | Home Phone [...] | [facility] | | | and Dwayneana | + + + | Organization | [facility] | | | and [...] Team Providers + +------+ + | Care Rehabilitation Supervisor Name | Role | Phone | [...] + + | 08/18/ | Telephone | [facility] | Bubba Maxwell | Appointment | | 2014 | | CARDIOLOGY [address] | MD Yimi [address] | | | | | [place], | [address] [place] | | | | | [place] [address] | [place] [address] | | | | | [phone] | [phone] | | | | | | | [...]
--- OUTSIDE RECORDS SUMMARY | ~2019-03-02 | XMS | Clinical Summary ---
Demographics + + + | Address | [address] | | | [place] [address] | + + + | Home Phone | | + + + | Preferred Language | Unknown | + + + | Marital Status | | + + + | Moravian Affiliation | Unknown | + + + | Race | Unknown | + + + | Ethnic Group | Unknown | + + + Author + + + | Author | [facility] (Historical as of | | | 12-07-18) | + + + | Organization | [facility] (Historical as of | | | 12-07-18) [...] Team Providers + +------+ + | Care Casing In Line Feeder Name | Role | Phone | + [...] +------+-------+ + | MEDICARE | MEDICA | [id number] | | | [address] | | | RE | | | | [place] [address] | | | IP-OP | | | | | + +--------+ +------+-------+ + | PREMERA | PREMER | [id number] | | | [address] [address] | | | A BLUE | | | | [place] | | | [place]OSS | | | | [address] | | | FED | | | [...] | | al/Serjio | | 1951 | [phone] | [place] [address] | | | christian | | | [address]: | | | | | | | | | | | | | | [phone] | | | | | | [phone] | | + +--------+ +--------+ + +"
--- OUTSIDE RECORDS SUMMARY | ~2019-03-02 | XMS | Encounter Summary ---
Demographics + + + | Address | [address] | | | [place] [address] | + + + | Home Phone | | + + + | Preferred Language | Unknown | + + + | Marital Status | Single | + + + | Mosque Affiliation | Unknown | + + + [...] Team Providers + +------+ + | Care Plastic Tubing Insulation Supervisor Name | Role | Phone | [...] | [address] | [address] Inf[place] | Hallucinations | | | | Lazara Infante Mailcode: | [place], [place] | | | | | [id number] [place], [place] | [address] | | | | | [address] | [phone] | | | | | [phone] | | | +--------+ + + + [...] this encounter Progress Rosa Oliveira PA - 09/19/2018 11:00 AM PDTFormatting of this note might be different jarvis maradiaga the original. Jail Facility Follow-Up: Jose Quinn Pulse is a [...] complication, with long-term current use of insulin ([facility]) (primary encounter diagnosis) Patient reported to have [...] to monitor - staff to encourage normal vmsdh-aoih-igvoa, orientation, OOB activity - avoid deliriogenic medications - continue home duloxetine 60mg daily - staff and family continue to look for purse/belongings (not checked in with these belongi ngs at admission to SNF, was reportedly not check-in during hospitalization and not in lost and found with [employer]) Rosa Orozco PA-C [facility] Division of Internal Medicine and Geriatrics [...]
--- OUTSIDE RECORDS SUMMARY | ~2019-03-02 | XMS | Encounter Summary ---
Demographics + + + | Address | [address] | | | [place] [address] | + + + | Home Phone [...] + | Author | [facility] | | | and Dwayneana | + + + | Organization | [facility] | | [...] Team Providers + +------+ + | Care File Machine Operator Name | Role | Phone | + +------+ + | Matt Kinney MD | PCP | | + +------+ + Encounter Details +--------+ + + + + | Date | Type | Department | Care Team | Description | +--------+ + + + + | 05/28/ | Hospital | [facility] | Layton Knapp, | DDD (degenerative | | 2015 | Encounter | MED CTR XRAY [address] | DO [address] | disc disease), | | | | [place] | [address], [place] | cervical; Neuropathy | | | | [place] [address] | [address] | | | | | [phone] | | | +--------+ + + + [...] + | MISCELLANEOUS LAB | | | [phone] | + +---------+ + + | MISCELANIOUS LAB | | | [phone] | + +---------+ + + documented in this encounter Visit Diagnoses + + | Diagnosis | + + | DDD (degenerative disc disease), cervical Degeneration of cervical intervertebral | | disc | + + | Neuropathy Mononeuritis of unspecified site | + + documented in this encounter"
--- OUTSIDE RECORDS SUMMARY | ~2019-03-02 | XMS | Encounter Summary ---
Demographics + + + | Address | [address] | | | [place] [address] | + + + | Home Phone [...] | Author | [facility] | | | and Dwayneana | + + + | Organization | [facility] [...] Team Providers + +------+ + | Care Liaison Engineer Name | Role | Phone | [...] + + | 01/15/ | Office | [facility] | Bubba Maxwell | Abnormal heart rate | | 2019 | Visit | CARDIOLOGY [address] | MD Yimi [address] | (Primary Dx); | | | | [place], | [address] [place] | Stenosis of carotid | | | | [place] [address] | [place] [address] | artery, unspecified | | | | [phone] | [phone] | laterality; | | | | | [...] today. Previously she had presented with her isnmefmd-pv-efb [place] perry. Since our last visit, she has been doing well without any chest pain or exertional symptoms . She continues to have suboptimal diabetic control. Prior to our last visit, she underwen t transesophageal echocardiography which confirmed severe MR. thereafter he was referred to [facility] in [place], where she underwent mitral valve replacement with [...] CV LHC; Surgeon: Bubba Maxwell MD; Location: [facility] CV LAB CARDIAC CATHERIZATION N/A 11/13/2017 Procedure: CV LHC; Surgeon: Bubba Maxwell MD; Location: [facility] CV LAB CORONARY ARTERY BYPASS GRAFT 09/03/2018 Boby Bernard MD HYSTERECTOMY 1976 [place] LYMPH NODE BIOPSY 1971 [place] MITRAL VALVE REPLACEMENT 09/03/2018 NASAL SINUS SURGERY 1988 OTHER SURGICAL HISTORY Left 07/28/2014 Procedure: LEFT HEART CATH; Surgeon: Bubba Maxwell MD; Location: [facility] CARDIO VASC ULAR LAB ROTATOR [...] - 09/03/[address] Boby Terry - [facility] for saphenous vein graft to [...] benefit from consideration of consultation with an hospital pharmacy technician if feasible. Nedra boykin also would benefit from further dietary education - she describes poor dietary choices in cluding frequent indulgence and ice cream and white bread. We had previously discussed conc ept of glycemic index which would benefit from future reinforcement. 3. Tobacco cessation - patient states that she is no longer smoking since discharge from [facility] and I have congratulated her on [...] made to ensure accuracy; however, inadvertent computerized size mixer errors may be pre sent. Electronically signed [...]
--- OUTSIDE RECORDS SUMMARY | ~2019-03-02 | XMS | Encounter Summary ---
Demographics + + + | Address | [address] | | | [place] [address] | + + + | Home Phone | | + + + | Preferred Language | Unknown | + + + | Marital Status | Single | + + + | Scientologist Affiliation | 1013 | + + + | Race | Unknown | + + + | Ethnic Group | Unknown | + + + Author + + + | Author | [facility] | | | and Dwayneana | + + + | Organization | [facility] | | [...] Team Providers + +------+ + | Care Arts And Crafts Teacher Name | Role | Phone | [...] (Primary Dx) | | | | [address], | address | | | | | [address] [place] | | | | | | [place] [address] | | | | | | [phone] | | | +--------+ + + + [...]
--- OUTSIDE RECORDS SUMMARY | ~2019-03-02 | XMS | Encounter Summary ---
Demographics + + + | Address | [address] | | | [place] [address] | + + + | Home Phone [...] | Author | [facility] | | | and Dwayneana | + + + | Organization | [facility] [...] Team Providers + +------+ + | Care Support Team Assoc Name | Role | Phone | + [...] | (Primary Dx) | | | | [place], | [place], [place] | | | | | [place] [address] | [address] | | | | | [phone] | | | +--------+ + + + [...] + | 08/26/13 Right L4-L5 and Left L5-G2Mewrztbytgenpr Epidural Steroid | [facility] | | Injections Diagnosis: Lumbar radiculopathy ICD-9 Code 724.4 | [facility] | | Etelvina Benitez presents to the fluoroscopy suite for | [facility] | | fluoroscopically-guided right L4-L5 and left [...] PDT 08/26/13Right L4-L5 and Left | | L5-I5Bqtqfonuayfwni Epidural Steroid InjectionsDiagnosis: Lumbar radiculopathyICD-9 Code | [...] + + | Performing | Address | City/State[facility] | Phone Number | | Organization | | | | + + + + + | [facility] | [address] | [place], [place] | [phone] | | [facility] | | [address] | | | - IMAGING | | | | + + + + + documented in this encounter Visit Diagnoses + + | Diagnosis | + + | Lumbar radiculopathy - Primary Thoracic or lumbosacral neuritis or radiculitis, | | unspecified | + + documented in this encounter"
--- OUTSIDE RECORDS SUMMARY | ~2019-03-02 | XMS | Encounter Summary ---
Demographics + + + | Address | [address] | | | [place] [address] | + + + | Home Phone [...] + + + | Author | [facility] | | | and Dwayneana | + + + | Organization | [facility] | | | and Dwayneana | [...] Providers + +------+ + | Care Test Fixture Assembler Name | Role | Phone | [...] [address] | | | | | [place], | [place] | | | | | [place] [address] | [place] [address] | | | | | [phone] | [phone] | | | | | | | [...]
--- OUTSIDE RECORDS SUMMARY | ~2019-03-02 | XMS | Encounter Summary ---
Demographics + + + | Address | [address] | | | [place] [address] | + + + | Home Phone [...] Team Providers + +------+ + | Care Plant Assigner Name | Role | Phone | + [...]
--- OUTSIDE RECORDS SUMMARY | ~2019-03-02 | XMS | Encounter Summary ---
Demographics + + + | Address | [address] | | | [place] [address] | + + + | Home Phone [...] | [facility] | | | and Dwayneana | + + + | Organization | [facility] | [...] Providers + +------+ + | Care Home Service Demonstrator Name | Role | Phone | + [...] + + | 08/18/ | Telephone | [facility] | Bubba Maxwell | Appointment | | 2014 | | CARDIOLOGY [address] | MD Yimi [address] | | | | | [place], | [place] | | | | | [place] [address] | [place] [address] | | | | | [phone] | [phone] | | | | | | | [...]
--- OUTSIDE RECORDS SUMMARY | ~2019-03-02 | XMS | Encounter Summary ---
Demographics + + + | Address | [address] | | | [place] [address] | + + + | Home Phone | | + + + | Preferred Language | Unknown | + + + | Marital Status | Single | + + + | Evangelical Affiliation | Unknown | + + + [...] Team Providers + +------+ + | Care Coil Machine Supervisor Name | Role | Phone | [...]
--- OUTSIDE RECORDS SUMMARY | ~2019-03-02 | XMS | Encounter Summary ---
Demographics + + + | Address | [address] | | | [place] [address] | + + + | Home Phone [...] + | Author | [facility] | | | and Dwayneana | + + + | Organization | [facility] | | | and Dwayneana [...] Team Providers + +------+ + | Care Code Official Name | Role | Phone | + [...] | | | | | [address] | [address] [place] | | | | | [place], [place] | [place], [place] [address] | | | | | [address] | [phone] | | | | | [phone] | | | +--------+---------+ + + + [...] You have a fever over 101F (38.3C). 9837-4375 [employer]. [address] [place] [address], [place] [address]. All righ ts reserved. This information is [...] Etelvina Benitez, (1950) MEDICAL RECORD NUMBER: | [facility] | | [id number] DATE OF PROCEDURE: 07/28/2014 TIRE CHANGER AIRCRAFT: | - IMAGING | | Bubba Maxwell MD, PhD, [facility] PROCEDURES | | | PERFORMED: Coronary [...] + | [facility] | [address] | [place], [place] | [phone] | | [facility] | | [address] | | | - IMAGING | | [...] | 1.05 | 0.60 - 1.30 | [facility] | | | | | mg/dL | [facility] | | | | | | MEDICAL | | | | | | CENTER - | | | | | | LABORATORY | | + + + + + + | eGFR if not | 53 (L)Comment: | >=60 | [facility] | | | | GLOMERULAR FILTRATION | mL/min/1.73m2 | Stefanie SALINAS | | | MICRONESIAN | RATE,ESTIMATED | | MEDICAL | | | | mL/min/1.17t3Stzy than | | CENTER - | | [...] + | [facility] | [address] | [place] | [phone] | | [facility] | | [address] | | | - LABORATORY | | [...] ST. | [address] | [place], [place] | [phone] | | [facility] | | [address] | | | - LABORATORY | | [...]
--- OUTSIDE RECORDS SUMMARY | ~2019-03-02 | XMS | Encounter Summary ---
Demographics + + + | Address | [address] | | | [place] [address] | + + + | Home Phone [...] Author | [facility] | | | and Dwayneana | + + + | Organization | [facility] | | | and Dwayneana [...] Providers + +------+ + | Care School Year Nanny Name | Role | Phone | + [...] PHYSIATRY [address] | MD [address] | | | | | [place], | [place], [place] | | | | | [place] [address] | [address] | | | | | [phone] | | | +--------+--------+ + + + [...]
--- OUTSIDE RECORDS SUMMARY | ~2019-03-02 | XMS | Encounter Summary ---
Demographics + + + | Address | [address] | | | [place] [address] | + + + | Home Phone [...] | Author | [facility] | | | and Dwayneana | + + + | Organization | [facility] | | | and Dwayneana [...] Team Providers + +------+ + | Care Clinic Office Coordinator Name | Role | Phone | [...] | | | | | address | [place], [place] | | | | | | | [address] Phone: | | | | | | | [phone] | | | | | | | Fax: | | | | | | | [phone] | +--------+ + + + + + Reason for Visit +--------+ + | Reason | Comments | +--------+ + | Other | Returned Dr Carey's call | +--------+ + Encounter Details +--------+ + + + + | Date | Type | Department | Care Team | Description | +--------+ + + + + | 04/24/ | Telephone | [facility] | Zen Carey | Other (Returned Dr | | 2014 | | NEUROLOGY ESME | MD Macie Need updated | Aurelio's call) | | | | [address] [facility], | address | | | | | [address] [place] | | | | | | [place] [address] | | | | | | [phone] | | | +--------+ + + + [...]
--- OUTSIDE RECORDS SUMMARY | ~2019-03-02 | XMS | Encounter Summary ---
Demographics + + + | Address | [address] | | | [place] [address] | + + + | Home Phone | | + + + | Preferred Language | Unknown | + + + | Marital Status | Single | + + + | Zoroastrian Affiliation | Unknown | + + + | Race | White | + + + | Ethnic Group | Other Race | + + + Author + + + | Author | [facility] | + + + | Organization | [facility] | + + + | Address | Unknown | + + + | Phone | Unavailable | + + + Support + + +---------+ + | Name | Relationship | Address | Phone | + + +---------+ + | Karen Unknown | ECON | Unknown | | + + +---------+ + Care Team Providers + +------+ + | Care Christian Counselor Name | Role | Phone | + [...] | | | [address] Infante Mailcode: | [place], [place] | | | | | [id number] [place], [place] | [address] | | | | | [address] | [phone] | | | | | [phone] | | | +--------+ + + + [...] might be different jarvis maradiaga the original. Group Home Facility Follow-Up: Jose Quinn Pulse is a [...] complication, with long-term current use of insulin ([facility]) (primary encounter diagnosis) Patient reported to have [...] to monitor - staff to encourage normal pphoi-rgph-fkstk, orientation, OOB activity - avoid deliriogenic medications - continue home duloxetine 60mg daily - staff and family continue to look for purse/belongings (not checked in with these belongi ngs at admission to SNF, was reportedly not check-in during hospitalization and not in lost and found with [employer] Rosa Orozco PA-C [facility] Division of Internal Medicine and Geriatrics documented [...]
--- OUTSIDE RECORDS SUMMARY | ~2019-03-02 | XMS | Encounter Summary ---
Demographics + + + | Address | [address] | | | [place] [address] | + + + | Home Phone [...] Author + + + | Author | [facility] | + + + | Organization | [facility] | + + + | Address | Unknown | + + + | Phone | Unavailable | + + + Support + + +---------+ + | Name | Relationship | Address | Phone | + + +---------+ + | Karen Unknown | ECON | Unknown | | + + +---------+ + Care Team Providers + +------+ + | Care Customer Technical Services Manager Name | Role | Phone | [...] | 2019 | on | [facility] | [address] | | | | | [address] | [address] | | | | | Lazara Infante Mailcode: | [place], [place] | | | | | [id number] [place], [place] | [address] | | | | | [address] | [phone] | | | | | [phone] | | | +--------+ + + + [...]
--- OUTSIDE RECORDS SUMMARY | ~2019-03-02 | XMS | Encounter Summary ---
Demographics + + + | Address | [address] | | | [place] [address] | + + + | Home Phone [...] Author | [facility] | | | and Dwayneana | + + + | Organization | [facility] | | | and Dwayneana | [...] Team Providers + +------+ + | Care Ship/Rec/Doc Control Name | Role | Phone | + +------+ + | Margie Gonzalez | PCP | | + +------+ + Encounter Details +--------+ + + + + | Date | Type | Department | Care Team | Description | +--------+ + + + + | 08/28/ | Abstract | [facility] | Bubba Maxwell | | | 2017 | | [place] [address] | MD Y[address] | | | | | [place], | [address] [place] | | | | | [place] [address] | [place] [address] | | | | | [phone] | [phone] | | | | | | | [...]
--- OUTSIDE RECORDS SUMMARY | ~2019-03-02 | XMS | Encounter Summary ---
Demographics + + + | Address | [address] | | | [place] [address] | + + + | Home Phone | | + + + | Preferred Language | Unknown | + + + | Marital Status | Single | + + + | Jain Affiliation | Unknown | + + + | Race | White | + + + | Ethnic Group | Other Race | + + + Author + + + | Author | [facility] | + + + | Organization | [facility] | + + + | Address | Unknown | + + + | Phone | Unavailable | + + + Support + + +---------+ + | Name | Relationship | Address | Phone | + + +---------+ + | Karen Unknown | ECON | Unknown | | + + +---------+ + Care Team Providers + +------+ + | Care Marketing Database Consultant Name | Role | Phone [...] | | | Laz[address] Infante Mailcode: | [place], [place] | | | | | [id number] [place], [place] | [address] | | | | | [address] | [phone] | | | | | [phone] | | | +--------+ + + + [...]
--- OUTSIDE RECORDS SUMMARY | ~2019-03-02 | XMS | Encounter Summary ---
Demographics + + + | Address | [address] | | | [place] [address] | + + + | Home Phone [...] + | Author | [facility] | | | and Dwayneana | + + + | Organization | [facility] [...] Team Providers + +------+ + | Care Rail Gang Supervisor Name | Role | Phone | [...] Heart valve | Bubba | [address] | | | | | replaced | MD Yimi | [place], | | | | | Mitral valve | [address] | [place] | | | | | | St [place] | [address] | | | | | insufficienc | [place], [place] | Phone: | | | | | y, | [address] | [phone] | | | | | unspecified | Phone: | Fax: | | | | | etiology | [phone] | [phone] | | | | | Essential | Fax: | | | | | | hypertension | [phone] | | | | | | Poor [...] Heart valve | Bubba | [address] | | | | | replaced | MD Yimi | [place], | | | | | Mitral valve | [address] | [place] | | | | | | St [place] | [address] | | | | | insufficienc | [place], [place] | Phone: | | | | | y, | [address] | [phone] | | | | | unspecified | Phone: | Fax: | | | | | etiology | [phone] | [phone] | | | | | Essential | Fax: | | | | | | hypertension | [phone] | | | | | | Poor [...] + + | 01/15/ | Hospital | [facility] | Bubba Ornelas | Heart valve | | 2019 | Encounter | MED CTR ECHO [address] | MD Y[address] | replaced; Mitral | | | | [place] | [address] [place] | valve insufficiency, | | | | [place] [address] | [place] [address] | unspecified | | | | [phone] | [phone] | etiology; Essential | | | | [...] cm/s | [facility] | | | brain | | | | | + +--------+ [...] | | | | | | n [place] | | | | | + +--------+ [...] | ETELVINA WIGGINS Room Number Patient Number [id number] Date of | | | Study 01/15/2019 Visit Number [id number] | | | Referring Physician YIMI ORNELAS MD Accession | | | [id number] Bull Gang Worker [place]ILLASEÑOR Number | | | Date of 1950 Interpreting | | | YIMI ORNELAS MD | | | Physician Age 68 year(s) Nurse Gender | | | Female Stress Fire Extinguisher Tester Procedure Type | | | of Study [...] WIGGINS Room Number Patient Number | | [id number] Date of Study 01/15/2019 Visit Number [id number] | | Referring Physician YIMI ORNELAS MD Bull Gang Worker | | [place]OR Number Date of [...]
--- OUTSIDE RECORDS SUMMARY | ~2019-03-02 | XMS | Encounter Summary ---
Demographics + + + | Address | [address] | | | [place] [address] | + + + | Home Phone [...] + | Author | [facility] | | | and Dwayneana | + + + | Organization | [facility] [...] Providers + +------+ + | Care Manager Labor Relations Name | Role | Phone | + [...] | Lumbar | [place], | [address] | | | | | radiculopath | Javon Bautista MD | [place], | | | | | y | [address] | [place] | | | | | Procedures | [place] | [address] | | | | | [place] INJECT | [place], [place] | Phone: | | | | | ANES/STEROID | [address] | [phone] | | | | | FORAMEN | Phone: | Fax: | | | | | LUMBAR/SACRA | [phone] | [phone] | | | | | L W IMG | Fax: | | | | | | GUIDE ,1 | [phone] | | | | | | LEVEL [place] | | | | | | | [...] | | | | | | | [place] | | | | | | | [...] + + | 08/26/ | Hospital | [facility] | Javon Ivy | Lumbar radiculopathy | | 2013 | Encounter | MED CTR XRAY [address] | T, [address] | | | | | [address] [place] | [place], [place] | | | | | [place] [address] | [address] | | | | | [phone] | | | | | | | Manager IntermediateLeonora | | +--------+ + + + + [...] + | 08/26/13 Right L4-L5 and Left L5-Y8Anbouzbvdfjvyv Epidural Steroid | [place] | | Injections Diagnosis: Lumbar radiculopathy ICD-9 Code 724.4 | [facility] | | Etelvina Benitez presents to the fluoroscopy suite for [facility] | | fluoroscopically-guided right L4-L5 and left [...] PDT 08/26/13Right L4-L5 and Left | | L5-B1Nyrsliqyefwnse Epidural Steroid InjectionsDiagnosis: Lumbar radiculopathyICD-9 Code | [...] + | [address] | [address] | [place], [place] | [phone] | | [facility] | | [address] | | | - IMAGING | | [...]
--- OUTSIDE RECORDS SUMMARY | ~2019-03-02 | XMS | Encounter Summary ---
Demographics + + + | Address | [address] | | | [place] [address] | + + + | Home Phone [...] | Author | [facility] | | | and Dwayneana | + + + | Organization | [facility] | [...] Team Providers + +------+ + | Care Subgrade Roller Operator Name | Role | Phone | [...] + | 10/22/ | Telephone | [facility] | Bubba Maxwell | Other (lump at | | 2018 | | [address] | MD Yimi [address] | harvest site) | | | | [place], | [address] [place] | | | | | [place] [address] | [place] [address] | | | | | [phone] | [phone] | | | | | | | [...]
--- OUTSIDE RECORDS SUMMARY | ~2019-03-02 | XMS | Encounter Summary ---
Demographics + + + | Address | [address] | | | [place] [address] | + + + | Home Phone [...] | Author | [facility] | | | and Dwayneana | + + + | Organization | [facility] | | | and Dwayneana [...] Team Providers + +------+ + | Care New Home Sales Consultant Name | Role | Phone [...] Pre-op exam | Bubba | [address] | | | | | CAD | MD Yimi | [place], | | | | | (coronary | [address] | [place] | | | | | artery | [place] | [address] | | | | | disease) | [place], [place] | Phone: | | | | | Procedures | [address] | [phone] | | | | | ECHO | Phone: | Fax: | | | | | Complete [place] | [phone] | [phone] | | | | | ECHO HEART | Fax: | | | | | | [place] | [phone] | | | | | | MPLETE W | | | | | | | [place] | | | | | | | [...] Pre-op exam | Bubba | [address] | | | | | CAD | MD Yimi | [place], | | | | | (coronary | [address] | [place] | | | | | artery | [place] | [address] | | | | | disease) | [place], [place] | Phone: | | | | | Procedures | [address] | [phone] | | | | | ECHO | Phone: | Fax: | | | | | [place] | [phone] | [phone] | | | | | ECHO HEART | Fax: | | | | | | [place] | [phone] | | | | | | MPLETE W | | | | | | | [place] | | | | | | | [...] + | 07/15/ | Hospital | [facility] | Bubba Maxwell | Pre-op exam; CAD | | 2014 | Encounter | MED CTR ECHO [address] | MD Yimi [address] | (coronary artery | | | | [address] [place] | [address] [place] | disease) | | | | [place] [address] | [place] [address] | | | | | [phone] | [phone] | | | | | | | [...] Performed At | + + + | [facility] ECHOCARDIOGRAM REPORT | [place] [facility] | | STUDY DATE: 07/15/2014 PATIENT NAME: Etelvina Jean Pulse : | [facility] | | 1950 PCP: Matt Kinney [facility] | | HISTORY/DIAGNOSIS: CAD, preop [...] PhD FACC | | | 07/15/2014 12:21 Fermenter: David Dudley RDMS | | + + + + + + + + | Performing | Address | City/State/Zipcode | Phone Number | | Organization | | | | + + + + + | [facility] | [address] | [place] | [phone] | | [facility] | | [address] | | | - IMAGING | | [...] of unspecified type of vessel, | | rampart or graft | + + documented in this encounter"
--- OUTSIDE RECORDS SUMMARY | ~2019-03-02 | XMS | Encounter Summary ---
Demographics + + + | Address | [address] | | | [place] [address] | + + + | Home Phone [...] Author | [facility] | | | and Dwayneana | + + + | Organization | [facility] | | | and Dwayneana [...] + +------+ + | Care Director Of Compliance Name | Role | Phone | + [...] + + | 08/28/ | Telephone | [facility] | Bubba Maxwell | Other (procedure | | 2017 | | CARDIOLOGY [address] | MD Yimi [address] | needs to be | | | | [place], | [address] [address] [place] | rescheduled) | | | | [place] [address] | [place] [address] | | | | | [phone] | [phone] | | | | | | | [...]
--- OUTSIDE RECORDS SUMMARY | ~2019-03-02 | XMS | Encounter Summary ---
Demographics + + + | Address | [address] | | | [place] [address] | + + + | Home Phone [...] + + + | Author | [facility] | | | and Dwayneana | + + + | Organization | [facility] | | | and Dwayneana [...] Team Providers + +------+ + | Care Patient Access Director Name | Role | Phone | [...] + + | 05/04/ | Office | [facility] | Zen Carey | Cervical stenosis of | | 2015 | Visit | NEUROLOGY ESME | MD Macie Need updated | spinal canal | | | | [address] [facility], | address | (Primary Dx); | | | | [address] [place] | | Neuropathy; Tremor; | | | | [place] [address] | | Imbalance | | | | [phone] | | | +--------+---------+ + + + [...] eat for 3 days in a row 9994-[address] [employer] [place] [address]. All righ ts reserved. This information is not intended as a substitute for professional medical care. Always follow your healthcare professional's instructions. documented in this encounter Progress Notes Zen Carey MD - 05/04/2014 11:18 AM PSTFormatting of this note might be differen t from the original. Zen Carey MD [address] [place] [address], [address] [place] [address] Neurology Outpatient ProgressNote Patient ID: Ms. Benitez [...] (151 lb) | BMI 25.13 kg/ m2 Gardner Sleepiness Scale: 9 General: well developed and [...] her care . Electronically signed by: Zen aCrey MD, 05/04/2014 11:35 documented in this encounter [...]
--- OUTSIDE RECORDS SUMMARY | ~2019-03-02 | XMS | Encounter Summary ---
Demographics + + + | Address | [address] | | | [place] [address] | + + + | Home Phone [...] + | Author | [facility] | | | and Dwayneana | + + + | Organization | [facility] | [...] Team Providers + +------+ + | Care Criminal Justice Instructor Name | Role | Phone | [...] | | | | y Lumbalgia | [address] | | | | | | Lumbar | [place], | | | | | | facet | [place] [address] | | | | | | arthropathy | Phone: | | | | | | | [phone] | | | | | | | Fax: | | | | | | | [phone] | | +--------+ + + + + + Reason for Visit + + + | Reason | Comments | + + + | Leg Pain | bilateral legs | + + + Encounter Details +--------+---------+ + + + | Date | Type | Department | Care Team | Description | +--------+---------+ + + + | 09/26/ | Office | [facility] | Gael Adam, | Lumbar radiculopathy | | 2013 | Visit | PHYSIATRY [address] | [address] | (Primary Dx); | | | | [place], | [place], [place] | Lumbalgia; Lumbar | | | | [place] [address] | [address] | facet arthropathy; | | | | [phone] | | Nocturnal leg | | | [...] office note has been dictated. Job ID# [id number] signed by Gael Adam MD at 09/26/2013 [...] 12:00 AM PDT [facility]ICINE AND REHAB [address] [place] [address] [place], [place] [address] FAX: [phone] OFFICE VISIT PHYSICAL MEDICINE REHABILITATION PROGRESS NOTE [...] extremity. Greater than 30 minutes was spent vehv-bm-zhkt today with Ms. Benitez, over half of which was spent formulating and discussing her medical treatment plan. Thank you for allowing me to be involved in the care of your patient. If you have any questions regarding the care of Ms Stefanie Benitez please do not hesitate to call. Gael Adam Jr, MD [facility] JOB #: [id number] cc: Tracey Kinney MD Tdocumented in this [...]
--- OUTSIDE RECORDS SUMMARY | ~2019-03-02 | XMS | Encounter Summary ---
Demographics + + + | Address | [address] | | | [place] [address] | + + + | Home Phone [...] + | Author | [facility] | | | and Dwayneana | + + + | Organization | [facility] | | | and Dwayneana [...] Providers + +------+ + | Care Manager Of Change Name | Role | Phone | + [...] | | Mitral valve | [address] | [address] | | | | | | St [place] | [place] | | | | | insufficienc | [place], [place] | [place], [place] | | | | | y, | [address] | [address] | | | | | unspecified | Phone: | Phone: | | | | | etiology | [phone] | [phone] | | | | | Essential | Fax: | Fax: | | | | | hypertension | [phone] | [phone] | | | | | Poor | [...] Heart valve | Bubba | [address] | | | | | replaced | MD Yimi | [place], | | | | | Mitral valve | [address] | [place] | | | | | | St [place] | [address] | | | | | insufficienc | [place], [place] | Phone: | | | | | y, | [address] | [phone] | | | | | unspecified | Phone: | Fax: | | | | | etiology | [phone] | [phone] | | | | | Essential | Fax: | | | | | | hypertension | [phone] | | | | | | Poor [...] | (Primary Dx); | | | | [address] [place], | [address] [place] | Mitral valve | | | | [place] [address] | [place] [address] | insufficiency, | | | | [phone] | [phone] | unspecified | | | | | [...] whether | | | | | | 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 She presents with her gxasrmti-bm-kqx Shilpa. Since our last visit, she underwent transesophageal echocardiography which confirmed severe MR. thereafter he was referred to [facility] in [place], where she underwent m itral valve replacement [...] returned for follow-up visit and moved to [place], having only ret urned recently. She ended up undergoing cervical fusion surgery in [place] and did not brown ve any further [...] CV LHC; Surgeon: Bubba Maxwell MD; Location: [facility] CV LAB CARDIAC CATHERIZATION N/A 11/13/2017 Procedure: CV LHC; Surgeon: Bubba Maxwell MD; Location: [facility] CV LAB CORONARY ARTERY BYPASS GRAFT 09/03/2018 Boby Bernard MD HYSTERECTOMY 1976 [place] LYMPH NODE BIOPSY 1971 [place] MITRAL VALVE REPLACEMENT 09/03/2018 NASAL SINUS SURGERY 1988 OTHER SURGICAL HISTORY Left 07/28/2014 Procedure: LEFT HEART CATH; Surgeon: Bubba Maxwell MD; Location: [facility] CARDIO VASC ULAR LAB ROTATOR [...] - 09/03/[address] Boby Terry - [facility] for saphenous vein graft to RCA. [...] efit from consideration of consultation with an flour inspector if feasible. Patient also w ould benefit from further dietary education - she describes poor dietary choices including frequent indulgence and ice cream and white bread. We had previously discussed concept of g lycemic index which would benefit from future reinforcement. 3. Tobacco cessation - patient states that she is no longer smoking since discharge from [facility] and I have congratulated her on [...] made to ensure accuracy; however, inadvertent computerized spa therapist errors may be pre sent. Electronically signed [...] whether | | | | | | long-term insulin | | | | | | [...] | | | | | | n [place] | | | | | + +--------+ [...] | ETELVINA WIGGINS Room Number Patient Number [id number] Date of | | | Study 01/15/2019 Visit Number [id number] | | | Referring Physician YIMI MAXWELL MD Accession | | | [id number] Full Time Staff Interpreter CONOR VILLASEÑOR Number | | | Date of 1950 Interpreting | | | YIMI MAXWELL MD | | | Physician Age 68 year(s) Nurse Gender | | | Female Stress Repairer Welding Equipment Procedure Type | | | of Study [...] WIGGINS Room Number Patient Number | | [id number] Date of Study 01/15/2019 Visit Number [id number] | | Referring Physician YIMI MAXWELL MD Full Time Staff Interpreter | | CONOR VILLASEÑOR Number Date of [...] | | | | | YIMI OBRIEN ([id number]) on | | | | | | [...] 2 diabetes mellitus without complication, unspecified whether long-term insulin | | use (HCC) | + + documented in this encounter
--- OUTSIDE RECORDS SUMMARY | ~2019-03-02 | XMS | Encounter Summary ---
Demographics + + + | Address | [address] | | | [place] [address] | + + + | Home Phone [...] Author | [facility] | | | and Dwayneana | + + + | Organization | [facility] | | | and Dwayneana | [...] Team Providers + +------+ + | Care Agricultural Plow Operator Name | Role | Phone | [...] atherosclero | MD Yimi | [address] | | | | | sis of | [address] | [place], | | | | | unspecified | [place] | [place] | | | | | type of | [place], [place] | [address] | | | | | vessel, | [address] | Phone: | | | | | quileute or | Phone: | [phone] | | | | | graft | [phone] | Fax: | | | | | Preoperative | Fax: | [phone] | | | | | | [phone] | | | | | | examination, [...] | | | | | | STUDIES CO | | | | | | | CV STRS TST | | | | | | | XERS&/OR RX | | | | | | | CONT ECG W/O | | | | | | | I&R CO | | | | | | [...] + | 07/15/ | Hospital | [facility] | Bubba Maxwell | | | 2015 | Encounter | MED CTR NUCLEAR | MD Yimi [address] | | | | | MEDICINE [address] | [address] [place] | | | | | [place], | [place] [address] | | | | | [place] [address] | [phone] | | | | | [phone] | | | +--------+ + + + [...]
--- OUTSIDE RECORDS SUMMARY | ~2019-03-02 | XMS | Encounter Summary ---
Demographics + + + | Address | [address] | | | [place] [address] | + + + | Home Phone [...] + + + | Author | [facility] | | | and Dwayneana | + + + | Organization | [facility] | | | and [...] Team Providers + +------+ + | Care House Coordinator Name | Role | Phone | [...] + + | 08/18/ | Telephone | [facility] | Nestor Nice | Imaging Only | | 2014 | | SURGERY [address] | MD Alma, FACS [address] | | | | | [address] [place], [place] | [address] [facility] | | | | | [address] | [place] [address] | | | | | [phone] | [phone] | | | | | | | [...]
--- OUTSIDE RECORDS SUMMARY | ~2019-03-02 | XMS | Encounter Summary ---
Demographics + + + | Address | [address] | | | [place] [address] | + + + | Home Phone [...] | Author | [facility] | | | and Dwayneana | + + + | Organization | [facility] | | | and [...] + +------+ + | Care Director Of Clinical Education Name | Role | Phone | [...] | [address] | [address] | | | | | stenosis of | [place], [place] | St [place] | | | | | spinal canal | [address] | [place], [place] | | | | | [place] | Phone: | [address] Phone: | | | | | stenosis of | [phone] | [phone] | | | | | cervical | Fax: | Fax: | | | | | region | [phone] | [phone] | | | | | Cervical | [...] | | | | | | | [address] Phone: | | | | | | | [phone] | | | | | | | Fax: | | | | | | | [phone] | +--------+ + + + + + Encounter Details +--------+---------+ + + + | Date | Type | Department | Care Team | Description | +--------+---------+ + + + | 05/28/ | Office | [facility] | Layton Knapp, | Cervical spondylosis | | 2015 | Visit | NEUROSURGERY [address] | DO [address] | (Primary Dx); | | | | [address] | [address] [place], [place] | Cervical stenosis of | | | | [place] | [address] | spinal canal; | | | | [address] | | Foraminal stenosis | | | | [phone] | | of cervical region; | | [...] m the original. Layton Knapp DO [address] [facility], [address] [place] [address] FAX: NEUROSURGERY HISTORY AND PHYSICAL EXAMINATION CHIEF [...] History Procedure Date Lymph node biopsy 1971 [place] Hysterectomy 1975 [place] Rotator cuff repair [...] Intrinsics 4+ 4 Ulnar Intrinsics 4+ 4 Saw Offbearer Strength 4+ 4 Hip Flexion 5 5 [...]
--- OUTSIDE RECORDS SUMMARY | ~2019-03-02 | XMS | Encounter Summary ---
Demographics + + + | Address | [address] | | | [place] [address] | + + + | Home Phone [...] | [facility] | | | and Dwayneana | + + + | Organization | [facility] | [...] Team Providers + +------+ + | Care Cloud Operations Engineer Name | Role | Phone | [...] | | | | | radiculopath | [address] | | | | | | y Lumbar | [place], | | | | | | degenerative | [place] [address] | | | | | | disc | Phone: | | | | | | disease | [phone] | | | | | | Lumbar facet | Fax: | | | | | | arthropathy | [phone] | | +--------+ + + + + [...] | pain | MD Pranav | [address] | | | | n | radiating to | [address] | [place], | | | | | both legs | [place] | [place] [address] | | | | | | [address] | Phone: | | | | | | [place], | [phone] | | | | | | [place] | Fax: | | | | | | [address] | [phone] | | | | | | Phone: | | | | | | | [phone] | | | | | | | Fax: | | | | | | | [phone] | | +--------+--------+ + + + + Encounter Details +--------+---------+ + + + | Date | Type | Department | Care Team | Description | +--------+---------+ + + + | 08/07/ | Office | [facility] | Gael Adam, | Lumbalgia (Primary | | 2013 | Visit | MEDICINE | [address] | Dx); Lumbar | | | | REHABILITATION [address] | [place] | radiculopathy; | | | | [address] | [address] | Lumbar degenerative | | | | [place] [address] | | disc disease; Lumbar | | | | [phone] | | facet arthropathy; | | | [...] clinic. Your injection will be performed at [facility]. Please take note of [...] office note has been dictated. Job ID# [id number] signed by Gael Adam MD at 08/07/2013 12:45 PM Mildred Dutta RN - 08/07/2013 11:15 AM PDTPatient states pain to back for 10 year that has become worse in the last 2 years. States 5/10 pain at this time. Gael Pickard MD - 08/07/2013 12:00 AM [facility] [address] [place] [address] FAX: [phone] OFFICE VISIT CONSULT REQUESTED BY: Matt Kinney [...] previous evaluation at a spine center in [place]. She indicates th at she previously was planning on surgery on her back, but did not go through with the surg anshul because of financial concerns. She indicates that the surgery center was out of her [facility], so she decided not [...] necessarily her back. She has not had pet care associate, and her notes from her doctor, [...] that her mother was living in a intermediate and had paranoid schizophrenia. She indicates that she wa s age 28 when her mother . She indicates that heart disease, diabetes, and mental illne ss run in her family. SOCIAL HISTORY: She works at [employer]. 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 She indicates that she has [...] cessation. Greater than 45 minutes was spent ondg-fc-psdl today with Ms. Benitez over half of which was spent formulating and discussing her medical treatment plan. Thank you for allowing me to be involved in the care of your the patient. If you have any questions regarding the care of Ms. Benitez, please do not hesitate to call. Gael Adam Jr, MD [facility] / JOB #: [id number] cc: Tracey Kinney MD Tdocumented in this [...] lumbar spine. Levoconvex scoliosis. 5 | | rqykfr-ynurlvehbuvsc-bnll vertebral bodies. Retrolisthesis of L3 on L4 [...] + | MISCELLANEOUS LAB | | | [phone] | + +---------+ + + | MISCELANIOUS LAB | | | [phone] | + +---------+ + + documented in [...]
--- OUTSIDE RECORDS SUMMARY | ~2019-03-02 | XMS | Encounter Summary ---
Demographics + + + | Address | [address] | | | [place] [address] | + + + | Home Phone | | + + + | Preferred Language | Unknown | + + + | Marital Status | Single | + + + | Sabianism Affiliation | Unknown | + + + [...] Team Providers + +------+ + | Care Surfacer Operator Name | Role | Phone | [...]
--- OUTSIDE RECORDS SUMMARY | ~2019-03-02 | XMS | Encounter Summary ---
Demographics + + + | Address | [address] | | | [place] [address] | + + + | Home Phone | | + + + | Preferred Language | Unknown | + + + | Marital Status | Single | + + + | Yazdanism Affiliation | Unknown | + + + | Race | White | + + + | Ethnic Group | Other Race | + + + Author + + + | Author | [facility] | + + + | Organization | [facility] | + + + | Address | Unknown | + + + | Phone | Unavailable | + + + Support + + +---------+ + | Name | Relationship | Address | Phone | + + +---------+ + | Karen Unknown | ECON | Unknown | | + + +---------+ + Care Team Providers + +------+ + | Care Aircraft Loadmaster Superintendent Name | Role | Phone | + [...] 2019 | Visit | [facility] at [facility] | MD Macie [address] | | | | | [address] | [address] | | | | | [place] Infante Mailcode: | [place], [place] | | | | | [id number] [place], [place] | [address] | | | | | [address] | [phone] | | | | | [phone] | | | +--------+ + + + [...] might be differen t from the original. [facility] Facility Intake Exam - Yaphank [place] Lianne Benitez is a 67 y.o. female with a PMH significant for CAD, Mitral valve insufficie ncy, hypothyroidism, htn, neuropathy, DM, and depression/anxiety. She is admitted for skilled therapy following a hospitalization at [facility] 09/03-09/13 for CABG and MVR. She lives in [place], [place]. Hospital course was significant for: no [...] uring admit, was on tube feedings, saw TILT TRAY DRIVER, then weaned off, asp precauations, diet was [...] 20 mEq by mouth onc e daily. [id number]-XJQM-[id number] ACID ( MULTI) 27-800 MG-MCG ORAL TABLET [...] labs 1hour prior to f[facility] 09/19 at 11am cards f/u in 4 [...] orders - dysphagia diet, thin liquids ok TILT TRAY DRIVER(dysphagia - reeval) and nutrition Aspiration precautions, HOB 30deg, 1:1 supervision for meals until cleared by TILT TRAY DRIVER GERD Continue her PPI at home dose [...] other issues detailed above. Chris Eldridge MD [facility] Internal [facility] documented in this encounter Plan of [...]
--- OUTSIDE RECORDS SUMMARY | ~2019-03-02 | XMS | Encounter Summary ---
Demographics + + + | Address | [address] | | | [place] [address] | + + + | Home Phone | | + + + | Preferred Language | Unknown | + + + | Marital Status | Single | + + + | Rastafari Affiliation | 1013 | + + + | Race | Unknown | + + + | Ethnic Group | Unknown | + + + Author + + + | Author | [facility] | | | and Dwayneana | + + + | Organization | [facility] | [...] Team Providers + +------+ + | Care Lathe Spotter Name | Role | Phone | + +------+ + | Matt Kinney MD | PCP | | + +------+ + Encounter Details +--------+ + + + + | Date | Type | Department | Care Team | Description | +--------+ + + + + | 06/19/ | Abstract | [facility] | Bubba Maxwell | | | 2014 | | [address] | MD [address] | | | | | [place], | [address] [place] | | | | | [place] [address] | [place] [address] | | | | | [phone] | [phone] | | | | | | | [...]
--- OUTSIDE RECORDS SUMMARY | ~2019-03-02 | XMS | Encounter Summary ---
Demographics + + + | Address | [address] | | | [place] [address] | + + + | Home Phone [...] + + + | Author | [facility] | | | and Dwayneana | + + + | Organization | [facility] [...] Team Providers + +------+ + | Care Aerial Planting And Cultivation Manager Name | Role | Phone | [...] [address] | [address] [place] | | | | | [place], [place] | [address] | | | | | [address] | | | | | | [phone] | | | +--------+ + + + [...]
--- OUTSIDE RECORDS SUMMARY | ~2019-03-02 | XMS | Encounter Summary ---
Demographics + + + | Address | [address] | | | [place] [address] | + + + | Home Phone | | + + + | Preferred Language | Unknown | + + + | Marital Status | Single | + + + | Yazidi Affiliation | Unknown | + + + [...] Team Providers + +------+ + | Care Offset Plate Maker Name | Role | Phone | [...]
--- OUTSIDE RECORDS SUMMARY | ~2019-03-02 | XMS | Encounter Summary ---
Demographics + + + | Address | [address] | | | [place] [address] | + + + | Home Phone [...] + | Author | [facility] | | | and Dwayneana | + + + | Organization | [facility] | | | and Dwayneana [...] Team Providers + +------+ + | Care State Game Warden Name | Role | Phone | + +------+ + | Matt Kinney MD | PCP | | + +------+ + Encounter Details +--------+ + + + + | Date | Type | Department | Care Team | Description | +--------+ + + + + | 06/19/ | Abstract | [facility] | Bubba Maxwell | | | 2014 | | [address] | MD [address] | | | | | [place], | [address] [place] | | | | | [place] [address] | [place] [address] | | | | | [phone] | | | | | | | [...]
[~2019-03-02 13:28] MED LIST changes: +ALPRAZOLAM0.25 MG PO; +ATORVASTATIN CA10 MG PO
== END 2019-03-02 16:12 | disposition home or self-care (01) ==
LOC: ED 13:28
DX: R10.11 Right upper quadrant pain (principal); R11.0 Nausea; E03.9 Hypothyroidism, unspecified; E11.40 Type 2 diabetes mellitus with diabetic neuropathy, unspecified; Z87.891 Personal history of nicotine dependence; Z88.5 Allergy status to narcotic agent; Z79.899 Other long term (current) drug therapy; Z79.4 Long term (current) use of insulin; Z79.82 Long term (current) use of aspirin
CPT/HCPCS: 76705; 80053; 81001; 83690; 85025; 96361; 99284-25; J1170; J2405; J7030

== ENCOUNTER 2019-10-30 11:05 | Day surgery (SDC) | payer MEDICARE, OTHER ==
[~2019-10-30] VITALS: Ht 165.1 cm; Wt 56.7 kg
[~2019-10-30 11:05] MED LIST changes: +OMEPRAZOLE20 M1 PO
--- NOTE | 2019-10-30 13:18 | NUR ---
10/30/19 1318 Raul Herring RESPONDS TO TAP AND VOICE. DENIES NAUSEA OR PAIN. FALLS ASLEEP EASILY.
--- NOTE | 2019-10-30 21:34 | OR ---
[facility] [address], [place] [address] Signed DATE OF OPERATION: 10/30/2019 SURGEON: Carlos A Falcon MD PREOPERATIVE DIAGNOSES: 1. Episodic diarrhea alternated with constipation. 2. History of hyperplastic polyps, 2013. 3. History of mitral valve replacement ([facility] [facility] Epic composite graft). POSTOPERATIVE DIAGNOSES: 1. Hyperplastic polyps of rectosigmoid and sigmoid. No evidence of colitis or cancer. PROCEDURE: 1. Total colonoscopy to cecum with biopsy of rectum and cecum. 2. Cold morcellation polypectomy x3, cold snare polypectomy x3. ANESTHESIA: Intravenous sedation of propofol infusion; Clara Dawson CRNA, and preoperative antibiotic, ampicillin, gentamicin. INDICATION: This 68-year-old white woman is a patient of Margie Gonzalez, who is known to me from the past. She underwent colonoscopy in 2013 where she was found to have at least one hyperplastic polyp. She has long-standing bowel issues and has diarrhea alternating with constipation. She does take dicyclomine. She likely has an irritable bowel syndrome. She has no family history of colon cancer. She has undergone mitral valve replacement by [facility] [facility] Epic composite graft and is doing well in that regard. She is admitted at this time to undergo colonoscopy on the basis of her complaints of bowel habit changes and known history of hyperplastic polyps. She understands risks of bleeding, infection, and perforation and wished to proceed. Additionally for valve prophylaxis, she was given ampicillin and gentamicin preprocedure. FINDINGS: The prep was good. Complete colonoscopy was undertaken to the cecum without problem. She had no obvious signs of inflammatory bowel disease. She had several small hyperplastic polyps of the rectosigmoid and sigmoid. Biopsies were taken of the rectum and cecum to assess for occult colitis. She had no diverticulosis. She has had no obvious colitis of any sort. Electronically Signed By: CARLOS A FALCON MD 10/30/19 2134 PATIENT NAME: SIMÓN AVILA OPERATIVE REPORT DATE OF : 48 REPORT #: [id number] PHYSICIAN: CARLOS A FALCON MD PCP: MARGIE GONZALEZ PA-C REPORT IS CONFIDENTIAL AND NOT TO BE RELEASED WITHOUT AUTHORIZATION [facility] [address], [place] [address] Signed DESCRIPTION OF PROCEDURE: The patient was brought to the endoscopy suite and placed in lateral decubitus position. Intravenous antibiotics were administered. She was given intravenous propofol sedation anesthesia by the surgeon chief with full cardiopulmonary monitoring. Digital rectal examination was notable for external hemorrhoidal changes. The Olympus video colonoscope was passed in the rectum and manipulated throughout the colon noting some hyperplastic appearing polyps of the rectosigmoid. The scope was advanced ultimately to the cecum. The ileocecal valve and appendiceal orifice were normal. Biopsies were taken of the cecum to assess for occult colitis. The scope was then withdrawn and examination showed no sign of abnormality until approximately 30 cm from the anal verge where a hyperplastic appearing polyp was noted, this was excised with cold snare technique. Further withdrawal of scope to the region of the rectosigmoid at about 20 cm showed similar finding, combination of techniques were used including cold snare and cold morcellation polypectomy techniques for excision of those polyps, which are almost certainly hyperplastic. Further withdrawal to the 12 cm range showed similar findings and similarly excised. Biopsy was taken of the rectum upon retroflexed view to assess for occult colitis also. Internal hemorrhoidal changes were noted as well. The scope was removed and the patient was taken to the recovery room in good condition. CONCLUDING DIAGNOSES: 1. Hyperplastic appearing polyps of the sigmoid and left colon. 2. No evidence of colitis or neoplasm. PLAN: She will return to the ongoing care and provider, JACK Crews. Would recommend a repeat colonoscopy in 5 years. Happy to see again if requested by JACK Crews. MD EDGAR Singleton/VITALIYL /[id number] cc: Margie Gonzalez PA-C Copies: MARGIE GONZALEZ PA-C Electronically Signed By: CARLOS A FALCON MD 10/30/19 2134 PATIENT NAME: SIMÓN AVILA OPERATIVE REPORT DATE OF : 48 REPORT #: [id number] PHYSICIAN: CARLOS A FALCON MD PCP: MARGIE GONZALEZ PA-C REPORT IS CONFIDENTIAL AND NOT TO BE RELEASED WITHOUT AUTHORIZATION [address] [place] [address] Signed ~ Electronically Signed By: CARLOS A FALCON MD 10/30/19 2134 PATIENT NAME: SIMÓN AVILA OPERATIVE REPORT DATE OF : 48 REPORT #: [id number] PHYSICIAN: CARLOS A FALCON MD PCP: MARGIE GONZALEZ PA-C REPORT IS CONFIDENTIAL AND NOT TO BE RELEASED WITHOUT AUTHORIZATION
--- NOTE | 2019-11-04 12:35 | PATH ---
[facility] [address] [facility] [place] [address] Signed SPECIMEN(S): A CECUM SPECIMEN(S): B COLON POLYP AT 50 CM SPECIMEN(S): C COLON POLYP AT 30 CM SPECIMEN(S): D COLON POLYP 15 CM SPECIMEN(S): E COLON POLYP AT 12 CM SPECIMEN(S): F RECTUM SPECIMEN SOURCE: A. CECUM B. COLON POLYP AT 50 CM C. COLON POLYP AT 30 CM D. COLON POLYP 15 CM E. COLON POLYP AT 12 CM F. RECTUM CLINICAL HISTORY: Constipation and diarrhea. Postop: Multiple polyps. Colonoscopy with Proprofol with possible biopsies. MICROSCOPIC DESCRIPTION: Histologic sections of all submitted blocks are examined by light microscopy. These findings, together with the gross examination, support the pathologic diagnosis. FINAL PATHOLOGIC DIAGNOSIS: A. Colon, cecum, biopsy: - Colonic mucosa with no histopathologic abnormality. - Negative for dysplasia or malignancy. B. Colon, polyp at 50 cm, polypectomy: - Colonic mucosa with no histopathologic abnormality. - Negative for dysplasia or malignancy. C. Colon, polyp at 30 cm, polypectomy: - Colonic mucosa with no histopathologic abnormality. - Negative for dysplasia or malignancy. D. Colon, polyp at 15 cm, polypectomy: - Hyperplastic polyp. - Negative for dysplasia or malignancy E. Colon, polyp at 12 cm, polypectomy: - Fragments of hyperplastic polyp. - Negative for dysplasia or malignancy. F. Rectum, biopsy: - Colorectal mucosa with no histopathologic abnormality. PATIENT NAME: SIMÓN AVILA PATHOLOGY DATE OF : 48 REPORT #: [id number] PHYSICIAN: CATRACHO SWENSON PCP: AGNIESZKA LUNA PA-C REPORT IS CONFIDENTIAL AND NOT TO BE RELEASED WITHOUT AUTHORIZATION [facility] [address] [place], [place] [address] Signed - Negative for dysplasia or malignancy. COMMENT: Multiple additional deeper levels of specimens B, C, D, and F were examined. NAL:cml:C2NR GROSS DESCRIPTION: Six specimens are received in six containers, labeled "DP." A. The specimen, labeled "DP, one," and designated on the requisition "colon biopsy," is received in formalin and consists of three tamez soft tissue fragment(s) that measure 0.2 up to 0.3 cm in greatest dimension. The specimen is entirely submitted in cassette (A1). B. The specimen, labeled "DP, two," and designated on the requisition "colon polyp at 50 cm," is received in formalin and consists of two tamez soft tissue fragment(s) that measure 0.2 cm in greatest dimension. The specimen is entirely submitted in cassette (B1). C. The specimen, labeled "DP, three," and designated on the requisition "colon polyp at 30 cm," is received in formalin and consists of multiple tamez soft tissue fragment(s) that measure less than 0.1 up to 0.4 cm in greatest dimension. The specimen is entirely submitted in cassette (C1). D. The specimen, labeled "DP, four," and designated on the requisition "colon polyp at 15 cm," is received in formalin and consists of two tamez soft tissue fragment(s) that measure 0.4 cm in greatest dimension. The specimen is entirely submitted in cassette (D1). E. The specimen, labeled "DP, five," and designated on the requisition "colon polyp at 12 cm," is received in formalin and consists of three elongated tamez soft tissue fragment(s) that measure 0.2 up to 0.6 cm in greatest dimension. The specimen is entirely submitted in cassette (E1). F. The specimen, labeled "DP, six," and designated on the requisition "rectum biopsy," is received in formalin and consists of two elongated tamez soft tissue fragment(s) that measure 0.3 and 0.7 cm in greatest dimension. The specimen is entirely submitted in cassette (F1). AI (under the direct supervision of a pathologist) The Gross Description was prepared using a voice recognition system. The report was reviewed for accuracy; however, sound-alike word errors, addition and/or deletions may occur. If there is any question about this report, please contact Client Services. PATIENT NAME: SIMÓN AVILA PATHOLOGY DATE OF : 48 REPORT #: [id number] PHYSICIAN: CATRACHO SWENSON PCP: AGNIESZKA LUNA PA-C REPORT IS CONFIDENTIAL AND NOT TO BE RELEASED WITHOUT AUTHORIZATION [facility] [address] [place], [place] [address] Signed PERFORMING LABORATORY: The technical component was performed by [employer], [address] [place] [id number] (Hot Dog Vendor: Margaux Coffey MD; CLIA# [id number]). Professional interpretation was performed by [employer], [facility], [address] [address] (CLIA# [id number]). Diagnostician: Ronna Lozoya MD Pathologist Electronically Signed 11/04/2019 Copies: ~ PATIENT NAME: SIMÓN AVILA PATHOLOGY DATE OF : 48 REPORT #: [id number] PHYSICIAN: CATRACHO SWENSON PCP: AGNIESZKA LUNA PA-C REPORT IS CONFIDENTIAL AND NOT TO BE RELEASED WITHOUT AUTHORIZATION
== END 2019-10-30 13:45 | disposition home or self-care (01) ==
LOC: DS 11:05 → OPS 11:05
PROVIDERS: Surgery
PROC: 0DBE8ZZ Excision of Large Intestine, Via Natural or Artificial Opening Endoscopic (ICD-10-PCS; 2019-10-30)
PROC: 0DBH8ZX Excision of Cecum, Via Natural or Artificial Opening Endoscopic, Diagnostic (ICD-10-PCS; 2019-10-30)
PROC: 0DBE8ZX Excision of Large Intestine, Via Natural or Artificial Opening Endoscopic, Diagnostic (ICD-10-PCS; 2019-10-30)
PROC: 0DBN8ZX Excision of Sigmoid Colon, Via Natural or Artificial Opening Endoscopic, Diagnostic (ICD-10-PCS; 2019-10-30)
PROC: 0DBP8ZX Excision of Rectum, Via Natural or Artificial Opening Endoscopic, Diagnostic (ICD-10-PCS; 2019-10-30)
PROC: 0DBN8ZZ Excision of Sigmoid Colon, Via Natural or Artificial Opening Endoscopic (ICD-10-PCS; principal; 2019-10-30 12:00)
DX: K63.5 Polyp of colon (principal); K64.4 Residual hemorrhoidal skin tags; K64.8 Other hemorrhoids; E11.9 Type 2 diabetes mellitus without complications; I10 Essential (primary) hypertension; F32.9 Major depressive disorder, single episode, unspecified; E03.9 Hypothyroidism, unspecified; G47.30 Sleep apnea, unspecified; K21.9 Gastro-esophageal reflux disease without esophagitis; F17.210 Nicotine dependence, cigarettes, uncomplicated; Z88.5 Allergy status to narcotic agent; Z79.899 Other long term (current) drug therapy; Z86.010 Personal history of colon polyps; Z95.2 Presence of prosthetic heart valve; Z98.890 Other specified postprocedural states; Z79.4 Long term (current) use of insulin
CPT/HCPCS: 88305; J1580; J2001; J2704; J7121

== ENCOUNTER 2020-01-06 14:20 | Emergency (ER) | payer MEDICARE, OTHER ==
[~2020-01-06] VITALS: Ht 165.1 cm; Wt 56.7 kg
--- OUTSIDE RECORDS SUMMARY | ~2020-01-06 | XMS | Encounter Summary ---
Demographics + + + | Address | [address] | | | [place] [address] | + + + | Home Phone | | + + + | Preferred Language | Unknown | + + + | Marital Status | Single | + + + | Yazdanism Affiliation | 1013 | + + + | Race | White | + + + | Ethnic Group | or | + + + Author + + + | Author | [facility] | | | and [place] | + + + | Organization | [facility] | | | and [place] | + + + | Address | Unknown | + + + | Phone | Unavailable | + + + Support + + +---------+ + | Name | Relationship | Address | Phone | + + +---------+ + | Andrew Couch | ECON | Unknown | | + + +---------+ + | Shilpa Couch | ECON | Unknown | | + + +---------+ + Care Team Providers + +------+ + | Care [employer] Sales Associate Name | Role | Phone | + +------+ + | Matt Kinney MD | PCP | | + +------+ + Reason for Visit + + + | Reason | Comments | + + + | Follow-up | MRI/sleep study | + + + Encounter Details +--------+---------+ + + + | Date | Type | Department | Care Team | Description | +--------+---------+ + + + | 05/04/ | Office | [facility] | Zen Carey | Cervical stenosis of | | 2014 | Visit | [facility] | MD Macie Need updated | spinal canal | | | | [address] [facility], | address | (Primary Dx); | | | | [address] [place] | | Neuropathy; Tremor; | | | | [place] [address] | | Imbalance | | | | [phone] | | | +--------+---------+ + + + Social History + +-------+ +--------+------+ | Tobacco Use | Types | Packs/Day | Years | Date | | | | | Used | | + +-------+ +--------+------+ | Current Every Day | | 1.5 | 37 | | | Smoker | | | | | + +-------+ +--------+------+ + + +---------+ + | Alcohol Use | Drinks/Week | oz/Week | Comments | + + +---------+ + | No | | | | + + +---------+ + + + + | Sex Assigned at | Date Recorded | | | | + + + | Not on file | | + + + documented as of this encounter Last Filed Vital Signs + + + + + | Vital Sign | Reading | Time Taken | Comments | + + + + + | Blood Pressure | 103/65 | 05/04/2014 11:17 AM | | | | | PST | | + + + + + | Pulse | 92 | 05/04/2014 11:17 AM | | | | | PST | | + + + + + | Temperature | - | - | | + + + + + | Respiratory Rate | 18 | 05/04/2014 11:17 AM | | | | | PST | | + + + + + | Oxygen Saturation | - | - | | + + + + + | Inhaled Oxygen | - | - | | | Concentration | | | | + + + + + | Weight | 68.5 kg (151 lb) | 05/04/2014 11:17 AM | | | | | PST | | + + + + + | Height | 165.1 cm (5' 5") | 05/04/2014 11:17 AM | | | | | PST | | + + + + + | Body Mass Index | 25.13 | 05/04/2014 11:17 AM | | | | | PST | | + + + + + documented in this encounter Patient Instructions Patient Instructions Zen Carey MD - 05/04/2014 11:54 AM PST1) We will call you with the results of your sleeps study. 2) Neurosurgery will contact you 3) Get a light box for your SAD (at least 10,000 LUX) 4) Follow up in 3 months Depression Depression is one of the most common mental health problems today. It is not just a state o f unhappiness or sadness. It is a true disease. The cause seems to be related to a decrease in chemicals that transmit signals in the brain. Having a family history of depression, alco holism or suicide increases the risk. Chronic illness, chronic pain, migraine headaches and high emotional stress also increase the risk. Depression can cause many different symptoms, such as: -- Loss of appetite -- Over-eating -- Not being able to sleep -- Sleeping too much -- Tiredness not related to physical exertion -- Restlessness or irritability -- Slowness of movement or speech -- Feeling depressed or withdrawn -- Loss of interest in things you once enjoyed -- Difficulty in concentrating, poor memory, have trouble making decisions -- Thoughts of harming or killing oneself, or thoughts that life is not worth living -- Low self-esteem The best treatment for depression is a combination of medicine and psychotherapy. Antidepre ssant medicines can reduce suffering and can improve the ability to function during the depr essed period. Therapy can offer emotional support and help you understand emotional factors that may be causing the depression. Home Care: 1) Be kind to yourself. Make it a point to do things that you enjoy (gardening, walking in nature, going to a movie, etc.). Reward yourself for small successes. 2) Take care of your physical body. Eat a balanced diet (low in saturated fat and high in f ruits and vegetables). Establish an exercise plan at least 3 times a week for 30 minutes. Ev en mild-moderate exercise (like brisk walking) can make you feel better. 3) Avoid alcohol, which can make depression worse. Follow-Up with your doctor as advised. It is important to keep in contact with a health care provider until your symptoms begin to improve. Get Prompt Medical Attention if any of the following occur: -- Feeling extreme depression, fear, anxiety, or anger toward yourself or others -- Feeling out of control -- Feeling that you may try to harm yourself or another -- Hearing voices that others do not hear -- Seeing things that others do not see -- Can t sleep or eat for 3 days in a row [id number] [employer] [place] [id number]. All righ ts reserved. This information is not intended as a substitute for professional medical care. Always follow your healthcare professional's instructions. documented in this encounter Progress Notes Zen Carey MD - 05/04/2014 11:18 AM PSTFormatting of this note might be differen t from the original. Zen Carey MD [address] [facility], [address] [place] [address] Neurology Outpatient ProgressNote Patient ID: Ms. Benitez is a 63 y.o. female with a pertinent history of DM-II with neuropathy, hypothyro idism, sarcoidosis, former seizures and chronic back pain, following up in neurology clinic for tremor and imbalance. Ms. Benitez was last seen 03/18/14 Interval History: Since last visit, Ms. Benitez has done quite well. Her tremor seems to have waned on its own without intervention, which argues against a primary neurodegenerative cause. She continues to have pain in her neck and feels it "creeking and crunching". The loss of sensation in her feet is stable. She underwent an MRI of her head and c-spine. MRI brain was essentially nor mal. C-spine MR showed central stenosis at C4-7 with significant bilateral neural foraminal stenoses. She recently underwent a repeat diagnostic PSG, but the report is not yet availabl e. Past Medical History: Past Medical History Diagnosis Date Abnormal heart rate Poor circulation Hyperlipidemia Neuropathy Thyroid disease Depression GERD (gastroesophageal reflux disease) Diabetes mellitus (HCC) Migraine Seizure (HCC) DDD (degenerative disc disease), cervical Current Medications: Current Medications ascorbic acid (VITAMIN C) 500 mg tablet (Taking) Take 500 mg by mouth Daily. aspirin 81 mg EC tablet (Taking) Take 81 mg by mouth Daily. atorvaSTATin (LIPITOR) 40 mg tablet (Taking) Take 40 mg by mouth nightly. DULoxetine (CYMBALTA) 60 MG capsule (Taking) Take 60 mg by mouth Daily. gabapentin (NEURONTIN) 300 mg capsule (Taking) TAKE ONE CAPSULE BY MOUTH EVERY MORNING AN D TWO CAPSULES EVERY NIGHT AT BEDTIME insulin lispro protamine-insulin lispro 75/25 (HUMALOG MIX 75/25) 100 units/mL SUSP (Taki ng) Inject under the skin 2 times daily (with breakfast & dinner). 40u BID levothyroxine (SYNTHROID, LEVOTHROID) 112 mcg tablet (Taking) Take 112 mcg by mouth every morning (before breakfast). Multiple Vitamin (MULTI-VITAMIN DAILY PO) (Taking) Take by mouth. omeprazole (PRILOSEC) 20 mg capsule (Taking) Take 20 mg by mouth every morning (before br eakfast). Allergies: Allergies Allergen Reactions Oxycodone Itching Oxycontin allergy Social history and family history are otherwise unchanged. ROS: GENERALLY: No fever, + night sweats, no anemia, + fatigue, no recent profound weight parson ges. EYES: + eye problems, + use of corrective lenses, no eye injury, + double vision, no blind ness. EARS, NOSE, AND THROAT: No changes in taste or smell, no hearing difficulty, no ringing in the ears, no ear drainage, + dizziness, no voice changes, no difficulty swallowing, + signi ficant snoring, no sleep apnea, no sinus problems, no major dental work. NEUROLOGICALLY: Please see the review of systems discussed above in the history of present illness. In addition, the patient has numbness/pain of legs, awake with numbness/pain, wea kness, muscle aching, coordination difficulty, change in walk, back injury, pain in back, tr emor/shaking, headaches, migraine, confusion, and numbness of face. PSYCHIATRIC: + depression, + sleep disorders, + anxiety, no bipolar disorder, no psychotic episodes. CARDIOVASCULAR: No heart attacks, no heart murmur, no heart fluttering, no chest pain, + a nkle swelling. LUNG DISEASE: No shortness of breath, no cough, no tuberculosis, no bloody cough, no asth ma, no emphysema/COPD. GASTROINTESTINAL: No bowel disease, no nausea or vomiting, + rectal bleeding/hemorrhoids, no constipation, no stool incontinence, no liver disease, no gallbladder disease, no abdomin al pain, no ulcers. KIDNEY DISEASE: No urinary frequency, no painful or difficult urination, no incontinence. ENDOCRINE: + diabetes, + thyroid disease, no osteopenia or osteoporosis, no breast drainag e. SKIN: No breast lumps, no skin changes, no rashes, no itches. HEMATOLOGIC/LYMPHATIC: No enlarged lymph nodes, no easy or unusual bleeding, no personal h istory of cancer. RHEUMATOLOGIC: + joint arthritis, no rheumatoid arthritis. Examination: BP 103/65 | Pulse 92 | Resp 18 | Ht 1.651 m (5' 5") | Wt 68.493 kg (151 lb) | BMI 25.13 kg/ m2 [place] Sleepiness Scale: 9 General: well developed and well nourished HEENT: sclera clear, anicteric and oropharynx clear, no lesions Cardiovascular: regular rate and rhythm, no murmurs Respiratory: clear to auscultation, no wheezes or rales and unlabored breathing Extremities: peripheral pulses normal, no pedal edema, no clubbing or cyanosis Neurologic: Mental Status: alert, oriented to person, place, and time, speech is fluent Cranial Nerves: cranial nerves II-XII are intact Motor: normal 5/5 strength in all tested muscle groups Sensation: normal light touch Coordination/Cerebellar: finger to nose intact Gait: antalgic, wide based. Radiographic Review: Imaging was reviewed in detail during the visit. Imaging demonstrates central stenosis at C 4-7 with significant bilateral neural foraminal stenoses. Laboratory Review: None Assessment: Ms. Benitez is a 63 y.o. female with a history of DM-II with neuropathy, hypothyroidism, sarc oidosis, former seizures and chronic back pain, following up in neurology clinic for tremor and imbalance. 1) Tremor: resolved/improved. Given improvement without intervention, this argues against P D as primary cause. 2) Imbalance: likely related to DM induced neuropathy as no evidence of NPH or parkinsonism at this time. 3) HELLEN: likely still significant. 4) Neck Pain: likely secondary to cervical stenosis. Neurosurgery referral pending. Plan: 1) f/u PSG. Will call patient with results and proceed with CPAP if indicated. 2) f/u neurosurgical referral 3) Return to neurology as needed or 31 days after initiating CPAP. I spent 25 minutes in visitation with Etelvina Benitez today with the majority of time spe nt counselling the patient on her diagnosis, options for her care, and coordinating her care . Electronically signed by: Zen Craey MD, 05/04/2014 11:35 documented in this encounter Miscellaneous Notes Miscellaneous - ONBASE VAL DING - 05/04/2014 12:00 AM PST documented in this encounter Plan of Treatment Not on filedocumented as of this encounter Visit Diagnoses + + | Diagnosis | + + | Cervical stenosis of spinal canal - Primary Spinal stenosis in cervical region | + + | Neuropathy Mononeuritis of unspecified site | + + | Tremor Abnormal involuntary movements | + + | Imbalance Abnormality of gait | + + documented in this encounter
--- OUTSIDE RECORDS SUMMARY | ~2020-01-06 | XMS | Encounter Summary ---
Demographics + + + | Address | [address] | | | [place] [address] | + + + | Home Phone | | + + + | Preferred Language | Unknown | + + + | Marital Status | Single | + + + | Holiness Affiliation | 1013 | + + + | Race | White | + + + | Ethnic Group | or | + + + Author + + + | Author | [facility] | | | and [place] | + + + | Organization | [facility] | | | and [place] | [...] Team Providers + +------+ + | Care Cold Header Name | Role | Phone | + +------+ + | Margie Gonzalez | PCP | | + +------+ + Reason for Referral Diagnostic/Screening (Routine) +--------+--------+ + + + + | Status | Reason | Specialty | Diagnoses / | Referred By | Referred To | | | | | Procedures | Contact | Contact | +--------+--------+ + + + + | Closed | | Radiology | Diagnoses | Maxood, | [facility] | | | | | Mitral | Bubba | [address] | | | | | valve | MD Yimi | [place], | | | | | insufficienc | [address] | [place] | | | | | y, | [place] | [address] | | | | | unspecified | [place] | Phone: | | | | | etiology | [phone] | [phone] | | | | | Procedures | Phone: | Fax: | | | | | ECHO | [phone] | [phone] | | | | | Transesophag | Fax: | | | | | | eal (IAIN) | [phone] | | | | | | CA ECHO | | | | | | | TRANSESOPHAG | | | | | | | R-T 2D | | | | | | | W/PRB IMG | | | | | | | ACQUISJ I&R | | | | | | | CA DOPPLER | | | | | | | ECHO | | | | | | | HEART,COMPLE | | | | | | | TE CA | | | | | | | DOPPLER | | | | | | | COLOR FLOW | | | | | | | VELOCITY MAP | | | | | | | IAIN DOS-> | | | | | | | 12/25/17 AT | | | | | | | 7AM | | | +--------+--------+ + + + + Reason for Visit + + + | Reason | Comments | + + + | Follow-up | | + + + Encounter Details +--------+---------+ + + + | Date | Type | Department | Care Team | Description | +--------+---------+ + + + | 11/27/ | Office | [facility] | Bubba Ornelas | Abnormal heart rate | | 2017 | Visit | CARDIOLOGY [address] | MD Yimi [address] | (Primary Dx); Poor | | | | [address] [place], | [address] [place] | circulation; | | | | [place] [address] | [place] [address] | Stenosis of carotid | | | | [phone] | [phone] | artery, unspecified | | | | | | laterality; | | | | | | Functional murmur; | | | | | | Hypertension, | | | | | | unspecified type; | | | | | | Hyperlipidemia, | | | | | | unspecified | | | | | | hyperlipidemia type; | | | | | | Mitral valve | | | | | | insufficiency, | | | | | | unspecified | | | | | | etiology; Tobacco | | | | | | use disorder | +--------+---------+ + + + Social History + + + +--------+------+ | Tobacco Use | Types | Packs/Day | Years | Date | | | | | Used | | + + + +--------+------+ | Current Every Day | Cigarettes | 1 | 37 | | | Smoker | | | | | + + + +--------+------+ + +---+---+---+ | Smokeless Tobacco: | | | | | Never Used | | | | + +---+---+---+ + + +---------+ + | Alcohol Use [...] + + + | Blood Pressure | 102/60 | 11/27/2017 12:54 PM | | | | | PDT | | + + + + + | Pulse | 76 | 11/27/2017 12:54 PM | | | | | PDT | | + + + + + | Temperature | - | - | | + + + + + | Respiratory Rate | 20 | 11/27/2017 12:54 PM | | | | | PDT | | + + + + + | Oxygen Saturation | - | - | | + + + + + | Inhaled Oxygen | - | - | | | Concentration | | | | + + + + + | Weight | 49.6 kg (109 lb 5.6 | 11/27/2017 12:54 PM | | | | oz) | PDT | | + + + + + | Height | 165.1 cm (5' 5") | 11/27/2017 12:54 PM | | | | | PDT | | + + + + + | Body Mass Index | 18.2 | 11/27/2017 12:54 PM | | | | | PDT | | + + + + + documented in this encounter Patient Instructions Patient Instructions Julisa Salazar RN - 11/27/2017 1:00 PM PDT Procedure: Transesophageal Echocardiogram-IAIN Date: Check-In Time: Check in at [facility] Instructions: 1. Nothing to eat or drink 6 hours prior 2. Take all of your regular medications the morning of the procedure with a small sip of w ater. 3. The procedure lasts approximately one-half hour 4. You will stay in same day surgery for approximately 2 hours after the procedure. 5. Make sure you have a national flatbed truck driver to take you home from the procedure. Your national flatbed truck driver will ne ed to sign to take responsibility for you, this can not be a taxi of public transit. Follow up appointment: 3 months Provider: Dilcia Ornelas MD Date: Check-in Time: documented in this encounter Progress Notes Bubba Ornelas MD - 11/27/2017 1:00 PM PDTFormatting of this note might be differe nt from the original. PATIENT NAME: Etelvina Benitez : 1950: AGE: 67 y.o. REFERRED BY: Bubba Ornelas PRIMARY CARE: JACK Faustin Dr. CARDIOLOGY OFFICE VISIT Date of Service: 11/27/17 HISTORY OF PRESENT ILLNESS: Etelvina Benitez is a 67 y.o. female with a history of established carotid artery disease, multivessel CAD, poorly controlled diabetes, hyperlipidemia, and ongoing tobacco use here f or a follow-up visit. Since our last visit, she underwent left heart catheterization and co ronary angiography. She denies any chest pain but continues to experience some exertional d yspnea. Unfortunately she continues to smoke, approximately one pack per day. Pertinent historical clinical information: She was initially referred by her primary provider Margie Narnajo PA-C for further consultatio n after recent complaints of exertional dyspnea and chest heaviness. Patient underwent inva sive workup in 2014 which revealed multivessel CAD as detailed above - as part of preoperati ve evaluation but never returned for follow-up visit and moved to [place], having only ret urned recently. She ended up undergoing cervical fusion surgery in [place] and did not brown ve any further cardiology follow-up there. She admits to continued poor diabetic control although she states that it has been better t montiel her previous trends. She also continues to smoke about one pack per day. MEDICAL, SURGICAL, AND PERSONAL HISTORY Past Medical History: Diagnosis Date Abnormal heart rate Carotid artery stenosis DDD (degenerative disc disease), cervical Depression Diabetes mellitus (HCC) Functional murmur GERD (gastroesophageal reflux disease) Hyperlipidemia Hypertension Migraine Neuropathy Osteopenia Poor circulation Seizure (HCC) SOB (shortness of breath) Thyroid disease Unspecified adverse effect of anesthesia low blood pressure with shoulder surgery in 2011 Vitamin D deficiency Past Surgical History: Procedure Laterality Date CARDIAC CATHERIZATION N/A 08/28/2017 Procedure: CV LHC; Surgeon: Bubba Ornelas MD; Location: [facility] CV LAB CARDIAC CATHERIZATION N/A 11/13/2017 Procedure: CV LHC; Surgeon: Bubba Ornelas MD; Location: [facility] CV LAB HYSTERECTOMY [place] LYMPH NODE BIOPSY 1971 [place] NASAL SINUS SURGERY 1988 OTHER SURGICAL HISTORY Left 07/28/2014 Procedure: LEFT HEART CATH; Surgeon: Bubba Ornelas MD; Location: 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 daily Living situation: with boyfriend CURRENT MEDICATIONS Current Outpatient Prescriptions Medication Sig Dispense Refill ALPRAZolam (XANAX) 0.25 mg tablet Take 0.25 mg by mouth as needed. aspirin 81 mg EC tablet Take 81 mg by mouth Daily. atorvaSTATin (LIPITOR) 80 MG tablet Take 80 mg by mouth nightly. BD ULTRA-FINE MICRO PEN NEEDLE 32G X 6 MM MISC Inject 1 Box under the skin every evenin g. DULoxetine (CYMBALTA) 60 MG capsule Take 60 mg by mouth Daily. hydroCHLOROthiazide 25 mg tablet Take 25 mg by mouth Daily. Insulin Glargine (TOUJEO SOLOSTAR SC) Inject 40 Units under the skin Daily. levothyroxine (SYNTHROID) 100 mcg tablet Take 100 mcg by mouth Daily. losartan (COZAAR) 50 mg tablet Take 50 mg by mouth Daily. metFORMIN (GLUCOPHAGE) 500 mg tablet Take 500 mg by mouth 2 times daily (with breakfast & dinner). Multiple Vitamin (MULTI-VITAMIN DAILY PO) Take 1 tablet by mouth Daily. omeprazole (PRILOSEC) 20 mg capsule Take 20 mg by mouth every morning (before breakfast ). spironolactone (ALDACTONE) 25 mg tablet Take 25 mg by mouth Daily. No current facility-administered medications for this visit. ALLERGIES Allergies Allergen Reactions Oxycodone Itching Oxycontin intolarant: Oxycodone tolerates. ROS I have reviewed the Review of Systems form dated today and scanned into the media tab. OBJECTIVE: PHYSICAL EXAM BP 102/60 | Pulse 76 | Resp 20 | Ht 1.651 m (5' 5") | Wt 49.6 kg (109 lb 5.6 oz) | BMI 18.20 kg/m Physical Exam Constitutional: She appears well-developed and well-nourished. No distress. Cardiovascular: Normal rate, regular rhythm, S1 normal, S2 normal, intact distal pulses and normal pulses. Murmur heard. High-pitched blowing holosystolic murmur is present with a grade of 3/6 at the apex Pulses: Carotid pulses are 2+ on the right side, and 2+ on the left side. Radial pulses are 2+ on the right side, and 2+ on the left side. Dorsalis pedis pulses are 2+ on the right side, and 2+ on the left side. Pulmonary/Chest: Effort normal and breath sounds normal. Musculoskeletal: She exhibits no edema. Skin: No cyanosis. Nails show no clubbing. Vitals reviewed. ECG: Normal sinus rhythm, heart rate 87, diffuse nonspecific T wave abnormality, abnormal ECG. LAB RESULTS: LIPID Lab Results Component Value Date CHOLHDL 2.9 08/20/2017 LDLEX 87 08/20/2017 HDLEX 50.3 08/20/2017 TRIGEX 48 08/20/2017 CHOLEX 147 08/20/2017 CHEMISTRY Lab Results Component Value Date GLU 121 (H) 07/28/2014 NA 140 07/28/2014 K 4.4 07/28/2014 CL 106 07/28/2014 CO2 24 07/28/2014 CALCIUM 9.2 07/28/2014 CREA 1.05 07/28/2014 BUN 13 07/28/2014 EGFREX 78 06/21/2017 CREEX 0.700 07/18/2017 HEMATOLOGY Lab Results Component Value Date HGBEX 12.8 06/21/2017 BNP 365 (June 2017) A1C 06/21/2017: 9.8 HbA1c 11.2, EAG 275 Nuclear stress perfusion imaging study June 2014 interpreted and reviewed by me notable fo r LVEF 45%, moderate to large sized predominantly reversible lateral perfusion defect as wel l as a small reversible distal anterior perfusion defect. Echocardiogram June 2014 interpreted and reviewed by me LVEF 45%, mild mitral and tricuspi d insufficiency, normal pulmonary pressures. Left heart catheterization and coronary angiography July 2014 results reviewed by me with the patient today notable for normal LV size and systolic function, LVEF 60%, proximal occlu ashley of a small nondominant RCA, moderate diffuse disease of the LAD along with focal 90% st enosis of a diffusely diseased LCx. Echocardiogram June 2017 results reviewed by me with the patient today notable for LVEF 40 -45%, inferior/inferolateral akinesis, severe MR, moderate left atrial enlargement. Cardiovascular diagnostic testing interpreted and reviewed by me with the patient today: [facility] 11/13/2017, interpreted and reviewed by me with the patient today: Proximally occluded d ominant RCA with mild to moderate diffuse disease of the LAD and a significant stenosis in t he midportion of the diffusely narrowed LCx. There is a right dominant circulation. Normal L V systolic function Systemic blood pressure is mildly elevated. Normal LV size and systolic function with moderate MR. ASSESSMENT: 1. CAD - patient was shown to have three-vessel CAD as detailed above on her angiogram in 2014 and this appears to be relatively unchanged on her recent angiogram. Next task is to d angermine whether the patient would benefit from cardiac surgery for mitral insufficiency. 2. Hyperlipidemia - her target LDL should be less than 70 mg/dL given her established cor onary and carotid disease. For now we will continue with atorvastatin 80 mg daily. She wou ld benefit from a recheck of her fasting lipid profile in the future. 3. Diabetes mellitus - patient continues to exhibit poor control and will likely benefit f rom consideration of consultation with an emergency telecommunications dispatcher if feasible. Patient also would b enefit from further dietary education - she describes poor dietary choices including freque nt indulgence and ice cream and white bread. We discussed concept of glycemic index which w ould benefit from future reinforcement. 3. Tobacco cessation - this was once again discussed at length (> 5 minutes) - especially given her multiple coronary disease risk factors & established vascular disease. She is hop eful to at least be able to cut back preoperatively. 4. Carotid artery disease - patient will benefit from future noninvasive evaluation given her history of previous endarterectomy. 5. Pulmonary - given patient's history of heavy tobacco use, she may benefit from consider ation of pulmonary function testing and possible pulmonary consultation re: potential of und erlying COPD. She was recently seen by pulmonary consultation. 6. Mitral regurgitation - this is a new finding, and would benefit from further assessment prior to possible surgery. She would benefit from transesophageal echocardiography to bett er assess mitral valve anatomy and severity of insufficiency. Patient understands the indic ations for the procedure as well as relevant risks and benefits and agrees to proceed. PLAN: 1. Transesophageal echocardiography. 2. Carotid duplex ultrasound examination within one year. 3. Tobacco cessation. 4. Continue current medications for now. 5. Improved diabetic control. Recommend endocrinology consultation. 6. Continued consultation with pulmonology regarding likely underlying COPD. 7. Follow-up visit in a few weeks. 8. Recheck fasting lipid profile in the future. Portions of this report were transcribed using voice recognition software. Every effort wa s made to ensure accuracy; however, inadvertent computerized military science teacher errors may be pre sent. Electronically signed by: Rafael Ornelas MD PhD FACC 11/27/2017 documented in t his encounter Plan of Treatment Not on filedocumented as of this encounter Results ECHO Transesophageal (IAIN) (12/25/2017 7:42 AM PDT) + +--------+ + + + | Component | Value | Ref Range | Performed | Pathologist | | | | | At | Signature | + +--------+ + + + | LVEF-TTE | 0 | % | [facility] | | | TRANSTHORAC | | | | | | IC ECHO | | | | | + +--------+ + + + | LVIDd | 6.75 | cm | [facility] | | + +--------+ + + + | FS | 21 | % | [facility] | | + +--------+ + + + | MV mean | 96.66 | mmHg | [facility] | | | gradient | | | | | + +--------+ + + + | MR max brian | 652.67 | cm/s | [facility] | | + +--------+ + + + | MV VTI | 197.94 | cm | [facility] | | + +--------+ + + + | LV | 46 | % | [facility] | | | Cordero's | | | | | | Biplane EF | | | | | + +--------+ + + + | MR Pisa | 0.96 | cm2 | [facility] | | | Area | | | | | + +--------+ + + + | IVS | 0.83 | cm | [facility] | | | Diastolic | | | | | | Thickness | | | | | | MM | | | | | + +--------+ + + + | LVPW | 0.88 | cm | [facility] | | | Diastolic | | | | | | Thickness | | | | | | MM | | | | | + +--------+ + + + | IVS | 1.44 | cm | [facility] | | | Systolic | | | | | | Thickness | | | | | | MM | | | | | + +--------+ + + + | LV Systolic | 5.33 | cm | [facility] | | | Diameter | | | | | | MM | | | | | + +--------+ + + + | LVPW | 1.33 | cm | [facility] | | | Systolic | | | | | | Thickness | | | | | | MM | | | | | + +--------+ + + + + + | Specimen | + + | | + + + + --+ | Narrative | Performed At | + + --+ | | [facility] | | Transesophageal Echocardiography Report (IAIN) Demographics Patient | | | Name [facility] Room Number [facility] | | | LAB [facility] | | | POOL Patient Number [id number] Date of Study | | | 12/25/2017 Visit Number [id number] Accession | | | [id number] Interpreting YIMI ORNELAS MD Number | | | Physician Date of 1950 | | | Referring YIMI ORNELAS MD | | | Physician Age 67 | | | year(s) International Logistics Coordinator LIZETH SUMNER RDCS Gender | | | Female Nurse | | | Stress Pipe Fitter Procedure Type of Study IAIN | | | procedure: ECHO Transesophageal (IAIN). Procedure DateDate: | | | 12/25/2017Start: 06:48 AM Height: 65 inchesWeight: 111 poundsBSA: 1.54 | | | m^2BMI: 18.47 kg/m^2Rhythm: Normal Sinus RhythmHR: 84 bpm | | | ConclusionsSummaryLeft ventricle is mildly enlarged with LVEDD 61 mm | | | and LVESD 46 mm. There ismild systolic dysfunction with LVEF | | | calculated at 47%.Left atrium is moderately enlarged. Left atrial | | | appendage is without in situthrombus/clot.Mitral valve is mild to | | | moderately thickened with borderline bileafletprolapse and mild | | | annular calcification. There is a central jet of severeinsufficiency | | | with high degree of aliasing. | | | Signature | | | | | | PM | | | -------- FindingsMitral ValveMitral valve is mild to moderately | | | thickened with borderline bileafletprolapse and mild annular | | | calcification. There is a central jet of severeinsufficiency with high | | | degree of aliasing.Aortic ValveAortic valve is a trileaflet valve, | | | with minimal sclerosis and nosignificant stenosis or | | | insufficiency.Tricuspid ValveNot well seen.Pulmonic ValveNot well | | | seen.Left AtriumLeft atrium is moderately enlarged. Left atrial | | | appendage is without in situthrombus/clot.Left VentricleLeft ventricle | | | is mildly enlarged with LVEDD 61 mm and LVESD 46 mm. There ismild | | | systolic dysfunction with LVEF calculated at 47%.Right AtriumNormal | | | right atrial size. Inter-atrial septum is intact.Right VentricleRight | | | ventricle appears to be of grossly normal size and systolic | | | function.It is suboptimally visualized.Pericardial EffusionNo evidence | | | of pericardial effusion.Pleural EffusionNo evidence of pleural | | | effusion.MiscellaneousAorta is of normal dimension with moderate | | | atheromatous plaquing noted. Valves Mitral Valve | | | FLOWER PISA: 0.96 cm^2 Structures Left Ventricle Diastolic Dimension: | | | 6.75 cm Systolic Dimension: 5.33 cm Septum Diastolic: | | | 0.83 cm PW Diastolic: 0.88 cm EF Calculated: 46.01% | | | | | | Electronically signed by YIMI ORNELAS MD(Interpreting physician) on | | | 12/25/2017 07:12 PM | | | | | | | | |Findings | | |Mitral Valve | | |Mitral valve is mild to moderately thickened with borderline bileaflet | | |prolapse and mild annular calcification. There is a central jet of severe | | |insufficiency with high degree of aliasing. | | |Aortic Valve | | |Aortic valve is a trileaflet valve, with minimal sclerosis and no | | |significant stenosis or insufficiency. | | |Tricuspid Valve | | |Not well seen. | | |Pulmonic Valve | | |Not well seen. | | |Left Atrium | | |Left atrium is moderately enlarged. Left atrial appendage is without in situ | | |thrombus/clot. | | |Left Ventricle | | |Left ventricle is mildly enlarged with LVEDD 61 mm and LVESD 46 mm. There is | | |mild systolic dysfunction with LVEF calculated at 47%. | | |Right Atrium | | |Normal right atrial size. Inter-atrial septum is intact. | | |Right Ventricle | | |Right ventricle appears to be of grossly normal size and systolic function. | | |It is suboptimally visualized. | | |Pericardial Effusion | | |No evidence of pericardial effusion. | | |Pleural Effusion | | |No evidence of pleural effusion. | | |Miscellaneous | | |Aorta is of normal dimension with moderate atheromatous plaquing noted. | | | | | |Valves | | | | | | Mitral Valve | | | | | | FLOWER PISA: 0.96 cm^2 | | | | | |Structures | | | | | | Left Ventricle | | | | | | Diastolic Dimension: 6.75 cm Systolic Dimension: 5.33 cm | | | Septum Diastolic: 0.83 cm | | | PW Diastolic: 0.88 cm | | | EF Calculated: 46.01% | | | | | + + --+ + + | Procedure Note | + + | John, Rad Results In - 12/25/2017 7:13 PM PDT Transesophageal Echocardiography Report | | (IAIN) Demographics Patient Name [facility] Room Number [facility] | | [facility] Patient Number | | [id number] Date of Study 12/25/2017 Visit Number [id number] Accession | | [id number] Interpreting YIMI ORNELAS MD Number | | Physician Date of 1950 Referring YIMI ORNELAS MD | | Physician Age 67 year(s) International Logistics Coordinator LIZETH | | BIANCA SUMNER Gender Female Nurse | | Stress TechnicianProcedureType of Study IAIN procedure: ECHO Transesophageal | | (IAIN).Procedure DateDate: 12/25/2017Start: 06:48 AMHeight: 65 inchesWeight: 111 | | poundsBSA: 1.54 m^2BMI: 18.47 kg/m^2Rhythm: Normal Sinus RhythmHR: 84 | | bpmConclusionsSummaryLeft ventricle is mildly enlarged with LVEDD 61 mm and LVESD 46 mm. | | There ismild systolic dysfunction with LVEF calculated at 47%.Left atrium is moderately | | enlarged. Left atrial appendage is without in situthrombus/clot.Mitral valve is mild to | | moderately thickened with borderline bileafletprolapse and mild annular calcification. | | There is a central jet of severeinsufficiency with high degree of | | aliasing.Signature | | ------ | | 07:12 | | PM FindingsMi | | tral ValveMitral valve is mild to moderately thickened with borderline bileafletprolapse | | and mild annular calcification. There is a central jet of severeinsufficiency with high | | degree of aliasing.Aortic ValveAortic valve is a trileaflet valve, with minimal | | sclerosis and nosignificant stenosis or insufficiency.Tricuspid ValveNot well | | seen.Pulmonic ValveNot well seen.Left AtriumLeft atrium is moderately enlarged. Left | | atrial appendage is without in situthrombus/clot.Left VentricleLeft ventricle is mildly | | enlarged with LVEDD 61 mm and LVESD 46 mm. There ismild systolic dysfunction with LVEF | | calculated at 47%.Right AtriumNormal right atrial size. Inter-atrial septum is | | intact.Right VentricleRight ventricle appears to be of grossly normal size and systolic | | function.It is suboptimally visualized.Pericardial EffusionNo evidence of pericardial | | effusion.Pleural EffusionNo evidence of pleural effusion.MiscellaneousAorta is of normal | | dimension with moderate atheromatous plaquing noted.Valves Mitral Valve | | FLOWER PISA: 0.96 cm^2Structures Left Ventricle Diastolic Dimension: 6.75 cm | | Systolic Dimension: 5.33 cm Septum Diastolic: 0.83 cm PW Diastolic: 0.88 cm EF | | Calculated: 46.01% | |Conclusions | |Summary | |Left ventricle is mildly enlarged with LVEDD 61 mm and LVESD 46 mm. There is | |mild systolic dysfunction with LVEF calculated at 47%. | |Left atrium is moderately enlarged. Left atrial appendage is without in situ | |thrombus/clot. | |Mitral valve is mild to moderately thickened with borderline bileaflet | |prolapse and mild annular calcification. There is a central jet of severe | |insufficiency with high degree of aliasing. | | | |Signature | | | | Electronically signed by YIMI ORNELAS MD(Interpreting physician) on | | 12/25/2017 07:12 PM | | | | | |Findings | |Mitral Valve | |Mitral valve is mild to moderately thickened with borderline bileaflet | |prolapse and mild annular calcification. There is a central jet of severe | |insufficiency with high degree of aliasing. | |Aortic Valve | |Aortic valve is a trileaflet valve, with minimal sclerosis and no | |significant stenosis or insufficiency. | |Tricuspid Valve | |Not well seen. | |Pulmonic Valve | |Not well seen. | |Left Atrium | |Left atrium is moderately enlarged. Left atrial appendage is without in situ | |thrombus/clot. | |Left Ventricle | |Left ventricle is mildly enlarged with LVEDD 61 mm and LVESD 46 mm. There is | |mild systolic dysfunction with LVEF calculated at 47%. | |Right Atrium | |Normal right atrial size. Inter-atrial septum is intact. | |Right Ventricle | |Right ventricle appears to be of grossly normal size and systolic function. | |It is suboptimally visualized. | |Pericardial Effusion | |No evidence of pericardial effusion. | |Pleural Effusion | |No evidence of pleural effusion. | |Miscellaneous | |Aorta is of normal dimension with moderate atheromatous plaquing noted. | | | |Valves | | | | Mitral Valve | | | | FLOWER PISA: 0.96 cm^2 | | | |Structures | | | | Left Ventricle | | | | Diastolic Dimension: 6.75 cm Systolic Dimension: 5.33 cm | | Septum Diastolic: 0.83 cm | | PW Diastolic: 0.88 cm | | EF Calculated: 46.01% | + + + +---------+ + + | Performing | Address | City/State/Zipcode | Phone Number | | Organization | | | | + +---------+ + + | [facility] | | | | + +---------+ + + documented in this encounter Visit Diagnoses + + | Diagnosis | + + | Abnormal heart rate - Primary | + + | Poor circulation Unspecified circulatory system disorder | + + | Stenosis of carotid artery, unspecified laterality | + + | Functional murmur Undiagnosed cardiac murmurs | + + | Hypertension, unspecified type | + + | Hyperlipidemia, unspecified hyperlipidemia type | + + | Mitral valve insufficiency, unspecified etiology | + + | Tobacco use disorder | + + documented in this encounter
--- OUTSIDE RECORDS SUMMARY | ~2020-01-06 | XMS | Encounter Summary ---
Demographics + + + | Address | [address] | | | [place] [address] | + + + | Home Phone | | + + + | Preferred Language | Unknown | + + + | Marital Status | Single | + + + | Sikh Affiliation | 1013 | + + + | Race | White | + + + | Ethnic Group | or | + + + Author + + + | Author | [facility] | | | and [place] | + + + | Organization | [facility] | | | and [place] | + + + | Address | Unknown | + + + | Phone | Unavailable | + + + Support + + +---------+ + | Name | Relationship | Address | Phone | + + +---------+ + | Andrew Couch | ECON | Unknown | | + + +---------+ + | Shilpa Khoa | ECON | Unknown | | + + +---------+ + Care Team Providers + +------+ + | Care Front Edger Name | Role | Phone | + +------+ + PCP | Unavailable | + +------+ + Encounter Details +--------+ + + + + | Date | Type | Department | Care Team | Description | +--------+ + + + + | 03/13/ | Orders Only | [facility] [place] [facility] | Nestor Nice | Occlusion and | | 2011 | | SURGERY [address] | MD Alma, FACS [address] | stenosis of carotid | | | | [address] [place], [place] | [address] [place] | artery without | | | | [address] | [place] [address] | mention of cerebral | | | | [phone] | [phone] | infarction (Primary | | | | | | Dx) | +--------+ + + + + Social [...] as of this encounter Plan of Treatment + +---------+--------+ + + | Name | Type | Priori | Associated Diagnoses | Order Schedule | | | | ty | | | + +---------+--------+ + + | VAS Carotid Duplex | Imaging | Routin | Occlusion and | Expected: | | Bilateral | | e | stenosis of carotid | 03/23/2012, Expires: | | | | | artery without | 03/13/2013 | | | | | mention of cerebral | | | | | | infarction | | + +---------+--------+ + + documented as of this encounter Visit Diagnoses + + | Diagnosis | + + | Occlusion and stenosis of carotid artery without mention of cerebral infarction - | | Primary | + + documented in this encounter"
--- OUTSIDE RECORDS SUMMARY | ~2020-01-06 | XMS | Encounter Summary ---
Demographics + + + | Address | [address] | | | [place] [address] | + + + | Home Phone | | + + + | Preferred Language | Unknown | + + + | Marital Status | Single | + + + | Episcopal Affiliation | 1013 | + + + | Race | White | + + + | Ethnic Group | or | + + + Author + + + | Author | [facility] | | | and [place] | + + + | Organization | [facility] | | | and [place] [...] Team Providers + +------+ + | Care Delphi Developer Name | Role | Phone | + +------+ + | Matt Kinney MD | PCP | | + +------+ + Encounter Details +--------+ + + + + | Date | Type | Department | Care Team | Description | +--------+ + + + + | 02/27/ | Abstract | [facility] | Bubba Maxwell | | | 2014 | | [address] | MD Yimi [address] | | | | | [place], | [address] [place] | | | | | [place] [address] | [place] [address] | | | | | [phone] | [phone] | | | | | | | | +--------+ + + + + Social History + +-------+ +--------+------+ | Tobacco Use | Types | Packs/Day | Years | Date | | | | | Used | | + +-------+ +--------+------+ | Current Every Day | | 1.5 | 37 | | | Smoker | | | | | + +-------+ +--------+------+ + +---+---+---+ | Smokeless Tobacco: | [...] filedocumented as of this encounter Visit Diagnoses Not on filedocumented in this encounter"
--- OUTSIDE RECORDS SUMMARY | ~2020-01-06 | XMS | Encounter Summary ---
Demographics + + + | Address | [address] | | | [place] [address] | + + + | Home Phone | | + + + | Preferred Language | Unknown | + + + | Marital Status | Single | + + + | Pentecostalism Affiliation | 1013 | + + + | Race | White | + + + | Ethnic Group | or | + + + Author + + + | Author | [facility] | | | and [place] | + + + | Organization | [facility] | | | and [place] [...] Team Providers + +------+ + | Care Commercial Real Estate Assistant Name | Role | Phone | + +------+ + | Matt Kinney MD | PCP | | + +------+ + Reason for Visit +---------+--------+ + | Reason | Onset | Comments | | | Date | | +---------+--------+ + | Results | 01/07/ | | | | 2013 | | +---------+--------+ + Encounter Details +--------+ + + + + | Date | Type | Department | Care Team | Description | +--------+ + + + + | 01/07/ | Telephone | [facility] [place] | Gael Boyce, | Results | | 2013 | | PHYSIATRY [address] | MD [address] | | | | | [address] | [place], [place] | | | | | [place], [place] | [address] | | | | | [address] | | | | | | [phone] | | | +--------+ + + + + Social History + +-------+ +--------+------+ | Tobacco Use | Types | Packs/Day | Years | Date | | | | | Used | | + +-------+ +--------+------+ | Current Every Day | | 1.5 | | | | Smoker | | | [...] + + documented as of this encounter Miscellaneous Notes Telephone Encounter - Nicko Colon RN - 01/07/2014 1:38 PM PDTPatient called to be no tified of results, no answer, VM left. Electronically signed by Nicko Colon RN at 01/07 1:39 PM PDTTelephone Encounter - Nicko Colon RN - 01/07/2014 1:38 PM PDTMessag e copied by NICKO COLON on SunJan 07, 2014 1738 ------ Message from: GAEL BOYCE Created: SunDec 24, 2013 0096 Nancy Levy Ms. Benitez know that her x-ray demonstrates right shoulder arthritis. There is no evidence of shoulder dislocation. I would like her to get the planned MR arthrogram of her right shoulder. Thank you, Gael Boyce MD (Jr.) ----- Message ----- From: Rad Results In John Sent: 12/24/2013 15:25 To: Gael Boyce MD documented in t his encounter Plan of Treatment Not on filedocumented as of this encounter Visit Diagnoses Not on filedocumented in this encounter"
--- OUTSIDE RECORDS SUMMARY | ~2020-01-06 | XMS | Encounter Summary ---
Demographics + + + | Address | [address] | | | [place] [address] | + + + | Home Phone | | + + + | Preferred Language | Unknown | + + + | Marital Status | Single | + + + | Mosque Affiliation | 1013 | + + + | Race | White | + + + | Ethnic Group | or | + + + Author + + + | Author | [facility] | | | and [place] | + + + | Organization | [facility] | | | and [place] [...] Team Providers + +------+ + | Care Assistant Banquet Manager Name | Role | Phone | + [...] [facility] | | | | | Pre-op exam | Bubba | [address] | | | | | CAD | MD Yimi | [place], | | | | | (coronary | [address] | [place] | | | | | artery | St [place] | [address] | | | | | disease) | [place], [place] | Phone: | | | | | Procedures | [address] | [phone] | | | | | ECHO | Phone: | Fax: | | | | | Complete [place] | [phone] | [phone] | | | | | ECHO HEART | Fax: | | | | | | [place] | [phone] | | | | | | [address] [address] | | | | | | | [place] | | | | | | | ECHO HEART | | | | | | | [place] | | | | | | | [place], [place] | | | | | | | [place]OPPL[place] | | | +--------+--------+ + + + + Reason for Visit Diagnostic/Screening (Routine) +--------+--------+ + + + + | Status | Reason | Specialty | Diagnoses / | Referred By | Referred To | | | | | Procedures | Contact | Contact | +--------+--------+ + + + + | Closed | | Radiology | Diagnoses | Maxood, | [facility] | | | | | Pre-op exam | Bubba | [address] | | | | | CAD | MD Yimi | [place], | | | | | (coronary | [address] | [place] | | | | | artery | St [place] | [address] | | | | | disease) | [place], [place] | Phone: | | | | | Procedures | [address] | [phone] | | | | | ECHO | Phone: | Fax: | | | | | [place] | [phone] | [phone] | | | | | ECHO HEART | Fax: | | | | | | [place] | [phone] | | | | | | [place] | | | | | | | [place] | | | | | | | ECHO HEART | | | | | | | [place] | | | | | | | MP[place], [place] | | | | | | | [place]OPPLER | | | +--------+--------+ + + + + Encounter Details +--------+ + + + + | Date | Type | Department | Care Team | Description | +--------+ + + + + | 07/15/ | Hospital [facility] | Bubba Maxwell | Pre-op exam; CAD | | 2014 | Encounter | [facility] [address] | MD Yimi [address] | (coronary artery | | | | [address] [place] | [address] [place] | disease) | | | | [place] [address] | [place] [address] | | | | | [phone] | [phone] | | | | | | | | | | | | David Dudely | | | | | | Jr. Technologist | | +--------+ + + + + [...] + + documented as of this encounter Medications at Time of Discharge [...] + + +---------+ + + | ALPRAZolam (XANAX | Take by mouth Daily | | 0 | | | | PO) | as needed. | | | | 8 | + + + +---------+ + + | ascorbic acid | Take 500 mg by mouth | | 0 | | | | (VITAMIN C) 500 mg | Daily. | | | | 8 | | tablet | | | | | | + + + +---------+ + + | atorvaSTATin | Take 80 mg by mouth | | 0 | | | | (LIPITOR) 80 MG | nightly. | | | | 9 | | tablet | | | | | | + + + +---------+ + + | gabapentin | TAKE ONE CAPSULE BY | 90 | 1 | 04/24/19 | | | (NEURONTIN) 300 mg | MOUTH EVERY MORNING | capsule | | 15 | 8 | | capsule | AND TWO CAPSULES | | | | | | | EVERY NIGHT AT | | | | | | | BEDTIME | | | | | + + + +---------+ + + | insulin lispro | Inject under the | | 0 | | | | protamine-insulin | skin 2 times daily | | | | 8 | | lispro 75/25 | (with breakfast & | | | | | | (HUMALOG MIX 75/25) | dinner). 40u BID | | | | | | 100 units/mL SUSP | | | | | | + + + +---------+ + + | levothyroxine | Take 112 mcg by | | 0 | | | | (SYNTHROID, | mouth every morning | | | | 8 | | LEVOTHROID) 112 mcg | (before breakfast). | | | | | | tablet | | | [...] + +--------+ + + + | ECHO COMPLETE | Routin | 07/15/2014 | Pre-op exam CAD | Results for this | | | e | 12:20 PM | (coronary artery | procedure are in the | | | | PDT | disease) | results section. | + +--------+ + + + | LVEF VALUE | Routin | 07/15/2014 | | Results for this | | | e | | | procedure are in the | | | | | | results section. | + +--------+ + + + documented in this encounter Results ECHO Complete (07/15/2014 12:20 PM PDT) + + | Specimen | + + | | + + + + + | Narrative | Performed At | + + + | [facility] ECHOCARD[facility]GRAM REPORT | [place] | | STUDY DATE: 07/15/2014 PATIENT NAME: Etelvina Benitez : | [facility] | | 1950 PCP: Matt Kinney [facility] | | HISTORY/DIAGNOSIS: CAD, preop evaluation A transthoracic | - IMAGING | | echocardiogram with M-mode, pulsed-wave and color Doppler was | | | performed with standard views obtained. The technical quality of | | | this examination is adequate. The heart rhythm during the echo is | | | normal. The M-mode, two-dimensional, color flow and spectral | | | Doppler data were reviewed and support the following interpretation: | | | Interpretation: Left Atrium: borderline enlarged. Left | | | ventricle: Normal size with normal wall thickness and mild diffuse | | | hypokinesis The estimated ejection fraction is 45%. Grade 1 left | | | ventricular diastolic dysfunction. Aortic root: Aortic root is | | | normal. Right Atrium: Right atrial sizes normal. Right ventricle: | | | Right ventricular size is normal with normal wall thickness and | | | normal right ventricular systolic function. Pericardium: | | | Pericardium is normal. Pulmonary artery: Pulmonary artery is | | | normal. Aortic valve: Aortic valve is trileaflet and opens | | | normally. Mitral valve: Normal with mild insufficiency. Pulmonic | | | valve: Pulmonic valve is normal. Tricuspid valve: Normal with mild | | | insufficiency and peak velocity consistent with normal right-sided | | | systolic pressures. Vena cava: The inferior vena cava is normal. | | | There is greater than 50% inspiratory collapse of the IVC. | | | IMPRESSIONS: 1. Mild diffuse LV hypokinesis with LVEF 45%. 2. | | | Mild mitral and tricuspid insufficiency. 3. Normal pulmonary | | | pressures. Measurements: Height: 65 Weight: 152 Aortic | | | root: 29 mm Aortic cusp sep: 16 mm LA: 38 mm IVS-diastole: | | | 11 mm IVS-systole: 10 mm LVPW diastole: 10 mm LVPW systole: | | | 13 mm LV diameter-diastole: 44 mm LV diameter-systole: mm | | | Fractional shortening: % PFV aortic valve: m/s MPG mitral | | | valve: mmHg PFV TR jet: 1.3 m/s RA/RV PP mmHg LA volume: | | | 36 mL LA index: 20 mL/m2 Mitral Inflow DT: 208 ms IVRT: 91 | | | ms Valsalva: No change PWDTI S wave: 6.7 cm/s PWDTI E wave: | | | 7.0 cm/s PWDTI A wave: 9.1 cm/s E/A Ratio: 0.77 E/E Ratio: | | | 13.06 Signed by: Rafael Maxwell MD PhD FACC | | | 07/15/2014 12:21 Ice Crusher: David Dudley RDMS | | + + + + + + + + | Performing | Address | City/State/Zipcode | Phone Number | | Organization | | | | + + + + + | [facility] | [address] | [place] | [phone] | | [facility] | | [address] | | | - IMAGING | | | | + + + + + LVEF VALUE (07/15/2014) + +-------+ + + + | Component | Value | Ref Range | Performed | Pathologist | | | | | At | Signature | + +-------+ + + + | LVEF-TTE | 45 | | | | | TRANSTHORAC | | | | | | IC ECHO | | | | | + +-------+ + + + documented in this encounter Visit Diagnoses + + | Diagnosis | + + | Pre-op exam Preoperative examination, unspecified | + + | CAD (coronary artery disease) Coronary atherosclerosis of unspecified type of vessel, | | yurok or graft | + + documented in this encounter"
--- OUTSIDE RECORDS SUMMARY | ~2020-01-06 | XMS | Encounter Summary ---
Demographics + + + | Address | [address] | | | [place] [address] | + + + | Home Phone | | + + + | Preferred Language | Unknown | + + + | Marital Status | Single | + + + | Anglican Affiliation | 1013 | + + + | Race | White | + + + | Ethnic Group | or | + + + Author + + + | Author | [facility] | | | and [place] | + + + | Organization | [facility] | | | and [place] | [...] Team Providers + +------+ + | Care Wood Turning Lathe Operator Name | Role | Phone | + +------+ + | Matt Kinney MD | PCP | | + +------+ + Reason for Visit +--------+--------+ + | Reason | Onset | Comments | | | Date | | +--------+--------+ + | Other | 04/09/ | | | | 2013 | | +--------+--------+ + Encounter Details +--------+ + + + + | Date | Type | Department | Care Team | Description | +--------+ + + + + | 04/09/ | Telephone | [facility] [place] | Zen Carey | Other | | 2013 | | NEUROLOGY ESME | MD Macie Need updated | | | | | [address] [facility], | address | | | | | [address] [place] | | | | | | [place] [address] | | | | | | [phone] | | | +--------+ + + + [...] this encounter Miscellaneous Notes Telephone Encounter - Evette Lopez RN - 04/09/2014 3:19 PM PSTCalled back back and asked her to please call [facility] to schedule her sleep study. Patient dayana terried understanding. P STTelephone Encounter - Ashley Crowe - 04/09/2014 3:12 PM PSTPatient called returning Evette's call. Please call patient back on cell phone documented in this encounter Plan of Treatment Not on filedocumented as of this encounter Visit Diagnoses Not on filedocumented in this encounter"
--- OUTSIDE RECORDS SUMMARY | ~2020-01-06 | XMS | Encounter Summary ---
Demographics + + + | Address | [address] | | | [place] [address] | + + + | Home Phone | | + + + | Preferred Language | Unknown | + + + | Marital Status | Single | + + + | Zoroastrian Affiliation | 1013 | + + + | Race | White | + + + | Ethnic Group | or | + + + Author + + + | Author | [facility] | | | and [place] | + + + | Organization | [facility] | | | and [place] | [...] Team Providers + +------+ + | Care Scaffold Builder Name | Role | Phone | + +------+ + | Matt Kinney MD | PCP | | + +------+ + Encounter Details +--------+ + + + + | Date | Type | Department | Care Team | Description | +--------+ + + + + | 07/15/ | Hospital | [facility] | Bubba Maxwell | CAD (coronary artery | | 2015 | Encounter | [facility] | MD Yimi [address] | disease); Pre-op | | | | [address] [place] | [address] [place] | evaluation | | | | [place], [place] | [place] [address] | | | | | [address] | [phone] | | | | | [phone] | | | +--------+ + + + [...] | + +--------+ + + + | CHOLESTEROL, LDL | Routin | 07/15/2014 | CAD (coronary | Results for this | | | e | 10:44 AM | artery disease) | procedure are in the | | | | PDT | Pre-op evaluation | results section. | + +--------+ + + + documented in this encounter Results Cholesterol, LDL (07/15/2014 10:44 AM PDT) + + + + + + | Component | Value | Ref Range | Performed | Pathologist | | | | | At | Signature | + + + + + + | LDL direct | 147 (H)Comment: The LDL | <100 mg/dL | REFERENCE | | | | goal varies from 70 to | | [facility] | | | | 160 depending on the | | | | | | clinical riskcategory. | | | | | | For specific risk | | | | | | assessment criteria, see | | | | | | our testdirectory at | | | | | | ([email or web address]).Testing | | | | | | Performed: [facility], [address] | | | | | | [address], [place] | | | | | | [address] | | | | + + + + + + + + | Specimen | + + | Blood specimen | | (specimen) | + + + + + + + | Performing | Address | City/State/Zipcode | Phone Number | | Organization | | | | + + + + + | [facility] | [address] | [place] [address] | [phone] | + + + + + documented in this encounter Visit Diagnoses + + | Diagnosis | + + | CAD (coronary artery disease) Coronary atherosclerosis of unspecified type of vessel, | | sun'aq or graft | + + | Pre-op evaluation Preoperative examination, unspecified | + + documented in this encounter"
--- OUTSIDE RECORDS SUMMARY | ~2020-01-06 | XMS | Encounter Summary ---
Demographics + + + | Address | [address] | | | [place] [address] | + + + | Home Phone | | + + + | Preferred Language | Unknown | + + + | Marital Status | Single | + + + | Latter Day Affiliation | Unknown | + + + | Race | White | + + + | Ethnic Group | Other Race | + + + Author + + + | Author | [facility] | + + + | Organization | [facility] | + + + | Address | Unknown | + + + | Phone | Unavailable | + + + Support + + +---------+ + | Name | Relationship | Address | Phone | + + +---------+ + | Karen Unknown | ECON | Unknown | | + + +---------+ + Care Team Providers + +------+ + | Care Mattress Stuffer Name | Role | Phone | + +------+ + | Margie Gonzalez PA-C | PCP | | + +------+ + Encounter Details +--------+ + + + + | Date | Type | Department | Care Team | Description | +--------+ + + + + | 09/13/ | SNF Care | General Internal | Ronald Eldridge | | | 2019 | Visit | Medicine at [facility] | MD Macie [address] | | | | | [address] | [address] | | | | | [place], | [place], [place] | | | | | [place] [address] | [address] | | | | | [phone] | [phone] | | | | | | | [...] + + + | Blood Pressure | 112/65 | 09/13/2018 5:49 PM | | | | | PDT | | + + + + + | Pulse | 68 | 09/13/2018 5:49 PM | | | | | PDT | | + + + + + | Temperature | 36.9 C (98.4 F) | 09/13/2018 5:49 PM | | | | | PDT | | + + + + + | Respiratory Rate | 18 | 09/13/2018 5:49 PM | | | | | PDT | | + + + + + | Oxygen Saturation | 91% | 09/13/2018 5:49 PM | | | | | PDT | | + + + + + | Inhaled Oxygen | - | - | | | Concentration | | | | + + + + + | Weight | 56.2 kg (123 lb 14.4 | 09/13/2018 5:49 PM | | | | oz) | PDT | | + + + + + | Height | - | - | | + + + + + | Body Mass Index | - | - | | + + + + + documented in this encounter Progress Notes Ronald Eldridge MD - 09/13/2018 11:00 AM PDTFormatting of this note might be differen t from the original. [facility] Facility Intake Exam - Jose Quinn Emmanuel is a 67 y.o. female with a PMH significant for CAD, Mitral valve insufficie ncy, hypothyroidism, htn, neuropathy, DM, and depression/anxiety. She is admitted for skilled therapy following a hospitalization at [facility] 09/03-09/13 for CABG and MVR. She lives in [place], [place]. Hospital course was significant for: no dc summary available, limited access to notes via EMR Course included hypotension post op, improved and needing hydralazine prn, metoprolol parson ged to carvediol, losartan cont'd Encephalopathy - saw neuro - "hepatic" enephalopathy with hyperammonemia - rxed lactulose a nd rifaxamin, eeg was done, but no brain imaging I can find. Dysphagia and anorexia developed prior to admit - noted in preop 08/29/18, dysphagia worse d uring admit, was on tube feedings, saw PROJ MGR, then weaned off, asp precauations, diet was adva ncing. Low platelets post op - resolved. Anemia/blood loss - stable. DM - home lantus 40units, was decreased during admit probably bc dec intake, then back upt o 40units and metformin added. Upped to 50 units on DC Patient Active Problem List Diagnosis Date Noted Depression 09/13/2018 GERD (gastroesophageal reflux disease) 09/13/2018 Dysphagia 09/13/2018 Acquired hypothyroidism 09/13/2018 Risk for falls 09/13/2018 Peripheral vascular disease (HCC) 09/13/2018 Neuropathy (HCC) 09/13/2018 Hypertension 07/08/2018 Diabetes mellitus (HCC) 07/08/2018 Mitral valve regurgitation 01/08/2018 Overview Note: Echo IAIN 12/25/2017: Left ventricle is mildly enlarged with LVEDD 61 mm and LVESD 46 mm. Th ere is mild systolic dysfunction with LVEF calculated at 47%. Left atrium is moderately enlarged. Left atrial appendage is without in situ thrombus/clot. Mitral valve is mild to moderately thickened with borderline bileaflet prolapse and mild annular calcification. There is a central jet of severe insufficiency wit h high degree of aliasing. No past medical history on file. Patient's Medications New Prescriptions CARVEDILOL 12.5 MG ORAL TABLET Take 1 tablet by mouth two times daily. Administer with food. hold dose if BPs <105, HR <50 FERROUS SULFATE 325 MG TOTAL SALT (65 MG ELEMENTAL) ORAL TABLET Take 1 tablet by mouth once daily. MULTIVITAMIN ORAL TABLET Take 1 tablet by mouth once daily. RIFAXIMIN 550 MG ORAL TABLET Take 1 tablet by mouth two times daily. TRAMADOL 50 MG ORAL TABLET Take 1 tablet by mouth every six hours as needed for moderat e pain. Previous Medications ACETAMINOPHEN 500 MG ORAL TABLET Take 1 tablet by mouth every six hours as needed (pain ). ASPIRIN EC 81 MG ORAL TABLET,DELAYED RELEASE (DR/EC) Take 1 tablet by mouth once daily. ATORVASTATIN 80 MG ORAL TABLET Take 80 mg by mouth once daily. DULOXETINE 60 MG ORAL CAPSULE,DELAYED RELEASE(DR/EC) Take 1 capsule by mouth once daily . FUROSEMIDE 20 MG ORAL TABLET Take 20 mg by mouth once daily. INSULIN GLARGINE U-300 CONC (TOUJEO SOLOSTAR U-300 INSULIN) 300 UNIT/ML (1.5 ML) SUBCUTANE OUS INSULIN PEN 40 Units by Intramuscular/Subcutaneous route once daily at bedtime. LEVOTHYROXINE 100 MCG ORAL TABLET Take 100 mcg by mouth once daily. LOSARTAN 50 MG ORAL TABLET Take 50 mg by mouth once daily. hold for BPsys < 105 MELATONIN 3 MG ORAL TABLET Take by mouth once daily at bedtime as needed. METFORMIN 500 MG ORAL TABLET Take 500 mg by mouth two times daily. OMEPRAZOLE 20 MG ORAL CAPSULE,DELAYED RELEASE(DR/EC) Take 20 mg by mouth once daily. POTASSIUM CHLORIDE SR 20 MEQ ORAL TABLET,ER PARTICLES/CRYSTALS Take 20 mEq by mouth onc e daily. [id number]-VVCYZ ACID ( MULTI) 27-800 MG-MCG ORAL TABLET Take 1 tablet by mouth once daily. Modified Medications No medications on file Discontinued Medications No medications on file Allergies Allergen Reactions Oxycodone Pruritus Oxycontin intolarant: Oxycodone tolerates. Oxycontin intolarant: Oxycodone tolerates. There is no immunization history on file for this patient. Social History Social History Tobacco Use Smoking status: Not on file Substance Use Topics Alcohol use: Not on file FH: Reviewed and noncontributory. GERIATRIC REVIEW OF SYSTEMS ADLs: was independent in dressing, bathing, toileting, eating, transferring, walking IADLs: was independent in telephone, grocery shopping, making meals, laundry, money managem ent, transportation Living situation: lives w grandson (per pt he doesn't help) Hearing: ok Vision: ok Assistive Devices: using walker now Nutrition: some weight loss Cognition: recent encephalopathy Sleep: ok Incontinence: none Depression/anxiety: hx of depression and anxiety POLST: no - full code GERIATRIC ROS/ROS: Obtained from review of chart and discussion with nursing staff and 12 p oint review of system is otherwise negative/or unable to obtain. BP 112/65 | Pulse 68 | Temp 36.9 C (98.4 F) | Resp 18 | Wt 56.2 kg (123 lb 14.4 oz) | SpO2 91% General: pt is a 67 y.o. year old female thin Diaphoretic and mildly confused (cbg was 49) after cbg improved looked much better Mental Status: Initially confused and not sure of date or location, knew she had left hosp ital. An hour later after cbg improved, was alert and oriented x 3/ mood initially anxious then normal HEENT: EOMI, PHILIPPE, normal conj Heart: Normal rate and regular rhythm without murmur. Has a rub - localized to area of ap ex and LLSB. JVP 6-8cm. Pulses are diminished in feet but palpable. Lungs: Clear to auscultation bilaterally, normal respiratory effort Abdomen: Soft, non tender. Positive bowel sounds; no hepatosplenomegly appreciated. Has 3 linear surgical wounds about 1.5cm each, in epigastrium ?chest tube/drain sites, draining serosanguinous fluid Extremities: trace calf edema, no cyanosis Skin: sternotomy scar is intact, no drainage, no redness or swelling Neuro: No focal neurological deficits appreciated Labs and imaging are reviewed from hospitalization. Labs: ([facility]) 09/13 WBC 11.2 HGB 9.8 HCT 30.9 PLT 127 Na 143 K 4.4 CO2 32 BUN 22 Cr 0.8 CA 8.3 Alb 2.9 Assessment and Plan: CAD - s/p CABG Mitral Valve replacement HTN Pericardial rub Hopefully DC summary will be dictated so we will have more details about her course and car e. After recovering from her hypoglycemia she looked much better. No cp or CHF symptoms h ere. She looks close to euvolemic. She does have a pericardial rub, that I couldn't find noted in hospital notes I could see. I called JACK Young from CT surgery who saw pt. She didn 't see pt today, but doesn't remember a rub. Without other symptoms and with vitals stable she wasn't concerned, said fairly common after open heart surgeries. She rec getting and ek g, but didn't need to be STAT. She has 3 linear surgical wounds about 1.5cm each, in epigastrium ?chest tube/drain sites, draining serosanguinous fluid. Staining her shirt and some residue stuck to skin. I clean ed off with wound cleanser, patted dry and applied an island foam dressing, should be checke d daily and changed prn for saturation. Plan: EKG on or before 09/17 - assess pericardial rub O2 1-2L by NC prn to keep sats >89% CXR and labs 1hour prior to f/u at [facility] 09/19 at 11am cards f/u in 4 weeks 09/17 CBC w/ Diff, comp met set tylenol 650mg prn q6h traMADol 50 mg oral tablet dec from 1 q4h to q6h - pain seems controlled and room/need to down titrate w encephalopathy- epigastric wounds - island foam dressing, should be checked daily and changed prn for satu ration. Hypoglycemia DM II Symptomatic hypoglycemia tonight at 49, gave juice and snacks and amol to 69, gave glucagon x 1 dose and went upto 149. Initially confused, mental status cleared. Patient says she didn't get lunch which is plausible as she was expected to transfer in morning, but then was held up by insurance issues until late afternoon. She is on metformin 500mg bid - home dos e. Looks like her glargine was increased recently to 50units, outpatient was 40. Discussed with her and she agrees w going back down to 40units. Plan: CBGs QID (before meals and qhs) - call provider if CBG > 300, < 70 Dec hs glargine to 40 units. Hypothyroid TSH 4.4 on 09/12. Preop says for "goiter suppression" but must be hypothyroid based on TSH and dose. Pt can't remember her dose. DC orders say 125mcg, preop says 100mcg and older notes 88mcg. Plan: I will rx 100mcg and we can try to clarify her dose next week. Maybe she will remember or we can check with PCP office. Encephalopathy - improved Bili never elevated during admit, but liver enzymes spiked and was started on rifaximin and lactulose, dc here on rifaxamin. US showed ok hepatic and portal veins. No hx of liver dis ease noted. Maybe related to hypotension/cardiac surgery - should resolve. Encephalopathy likely multifactorial - common after cardiac surgery. Also was getting pain meds and xanax . EEG 09/07 showed "diffuse delta slowing consistent w encephalopathy". After confusion fro m hypoglycemia she was oriented x 3, alert, joking appropriately and tracking well. Plan: DC alprazolam add melatonin for sleep prn trial off rifaxamin next week Dyphagia She was able to drink 4oz of juice without problem and I watched her eat a variety of textu res. Per notes had some dysphagia prior to admit, but no details. Plan: Per hospital dc orders - dysphagia diet, thin liquids ok PROJ MGR(dysphagia - reeval) and nutrition Aspiration precautions, HOB 30deg, 1:1 supervision for meals until cleared by PROJ MGR GERD Continue her PPI at home dose - omeprazole 20mg qd. Falls Neuropathy Needs to work with PT and OT. Has hx of falls with past hip fx in 2017. Plan: PT, OT Anemia Stable post op. Plan: Dec iron from bid to qd - higher dose no benefit and more constipation. Recheck CBC 09/17 I spent a total of 90 minutes of floor time on care of this patient today - >50% spent on c oordintation of care and education/counselling re: hypoglycemia/DM, cardiac issues, medicati ons, and other issues detailed above. Chris Eldridge MD Auto Wheel Alignment Specialist of Internal Medicine [facility] documented in this encounter Miscellaneous Notes Addendum Note - Ronald Eldridge MD - 09/13/2018 11:00 AM PDT Addended by: RONALD ELDRIDGE on: 09/17/2018 09:43 AM Modules accepted: Orders, SmartSet documented in this encounter Plan of Treatment Not on filedocumented as of this encounter Visit Diagnoses + + | Diagnosis | + + | Depression, unspecified depression type - Primary | + + | Hypertension, unspecified type | + + | Mitral valve insufficiency, unspecified etiology | + + | Gastroesophageal reflux disease, esophagitis presence not specified | + + | Type 2 diabetes mellitus with complication, with long-term current use of insulin | | (HCC) | + + | Dysphagia, unspecified type | + + | Acquired hypothyroidism Unspecified hypothyroidism | + + | Risk for falls Personal history of fall | + + | Peripheral vascular disease (HCC) Peripheral vascular disease, unspecified | + + | Neuropathy Mononeuritis of unspecified site | + + documented in this encounter
--- OUTSIDE RECORDS SUMMARY | ~2020-01-06 | XMS | Encounter Summary ---
Demographics + + + | Address | [address] | | | [place] [address] | + + + | Home Phone | | + + + | Preferred Language | Unknown | + + + | Marital Status | Single | + + + | Baptism Affiliation | 1013 | + + + | Race | White | + + + | Ethnic Group | or | + + + Author + + + | Author | [facility] | | | and [place] | + + + | Organization | [facility] | | | and [place] [...] Team Providers + +------+ + | Care Wrap Yarn Sorter Name | Role | Phone | + +------+ + | Margie Gonzalez | PCP | | + +------+ + Encounter Details +--------+ + + + + | Date | Type | Department | Care Team | Description | +--------+ + + + + | 04/10/ | Imaging | [facility] | Provider, | | | 2020 | Exam | [facility] | MD Hemanth [address] | | | | | IMAGING [address] | [address] | | | | | [address] | [place] [address] | | | | | [place] [address] | | | | | | [phone] | | | +--------+ + + + [...] | + +--------+ + + + | XR CHEST 2 VIEWS | Routin | 05/08/2017 | | Results for this | | | e | 12:00 AM | | procedure are in the | | | | PST | | results section. | + +--------+ + + + documented in this encounter Results XR Chest 2 Vws (05/08/2017 12:00 AM PST) + + | Specimen | + + | | + + + + + | Narrative | Performed At | + + + | External films for comparison only | [facility] | | | | | No results will be in the chart. | | + + + + +---------+ + + | Performing | Address | City/State/Zipcode | Phone Number | | Organization | | | | + +---------+ + + | [facility] | | | | + +---------+ + + documented in this encounter Visit Diagnoses Not on filedocumented in this encounter"
--- OUTSIDE RECORDS SUMMARY | ~2020-01-06 | XMS | Encounter Summary ---
Demographics + + + | Address | [address] | | | [place] [address] | + + + | Home Phone | | + + + | Preferred Language | Unknown | + + + | Marital Status | Single | + + + | Oriental Orthodox Affiliation | 1013 | + + + | Race | White | + + + | Ethnic Group | or | + + + Author + + + | Author | [facility] | | | and [place] | + + + | Organization | [facility] | | | and [...] Team Providers + +------+ + | Care Inter Fold Roll Cutter Name | Role | Phone | + +------+ + | Margie Gonzalez | PCP | | + +------+ + Encounter Details +--------+ + + + + | Date | Type | Department | Care Team | Description | +--------+ + + + + | 01/10/ | Hospital | [facility] | Joseph Aranda, | Dyspnea, unspecified | | 2018 | Encounter | MED CTR PULMONARY | [address] | type | | | | FUNCTION [address] | [place] [address] | | | | | [place], | [phone] | | | | | [place] [address] | | | | | | [phone] | | | +--------+ + + + [...] | | 0 | | | | (TOUCOLLINO SOLOSTAR SC) | under the skin | | [...] + + documented as of this encounter Procedure Notes Joseph Aranda MD - 01/11/2018 10:57 AM PDTAssociated Order(s): PFT PULMONARY FU NCTION TESTING ORDERSProcedure(s): PFT PULMONARY FUNCTION TESTING ORDERSPre-Procedure Diagno se(s): Dyspnea, unspecified type PULMONARY FUNCTION TESTING SPIROMETRY: The FVC was 2.81 L or 92 % of predicted. The FEV1 was 2.35 L or 101 % of predic lc. FEV1/FVC ratio was 84 %. LUNG VOLUMES: The total lung capacity was 5.04 L or 97 % of predicted. The residual volume was 2.17 L or 99 % of predicted. RV/TLC ratio was 101 % of predicted. DIFFUSION CAPACITY: The diffusion capacity was 13.0 mL/mmHg per minute or 54 % of predicted . IMPRESSION: Spirometry is consistent with normal physiology on optimized medication. Lung v olume testing is consistent with normal physiology. Diffusion capacity is moderately reduced and is not corrected for measured hemoglobin. Test performed: She understood instructions and cooperated well, spirometry was acceptable and reproducible. Electronically signed by: Joseph Aranda MD 01/11/2018 10:57 [facility] documented i n this encounter Plan of Treatment Not on filedocumented as of this encounter Procedures + +--------+ + + + | Procedure Name | Priori | Date/Time | Associated Diagnosis | Comments | | | ty | | | | + +--------+ + + + | PFT PULMONARY | EDITH | 01/11/2018 | Dyspnea, | Results for this | | FUNCTION TESTING | | 10:57 AM | unspecified type | procedure are in the | | ORDERS | | PDT | | results section. | + +--------+ + + + | PFT PULMONARY | EDITH | 01/11/2018 | Dyspnea, | Results for this | | FUNCTION TESTING | | 10:57 AM | unspecified type | procedure are in the | | ORDERS | | PDT | | results section. | + +--------+ + + + | PFT PULMONARY | [facility] | 01/11/2018 | Dyspnea, | Results for this | | FUNCTION TESTING | | 10:57 AM | unspecified type | procedure are in the | | ORDERS | | PDT | | results section. | + +--------+ + + + | PFT PULMONARY | [facility]ITH | 01/11/2018 | Dyspnea, | Results for this | | FUNCTION TESTING | | 10:57 AM | unspecified type | procedure are in the | | ORDERS | | PDT | | results section. | + +--------+ + + + documented in this encounter Results Pulmonary function test full [...] | | | Joseph Aranda MD 01/11/2018 10:57[facility] | | CENTER | | |IMPRESSION: Spirometry [...] Joseph Aranda MD 01/11/2018 10:57 | | |[facility] | | | | | + + + documented in this encounter Visit Diagnoses + + | Diagnosis | + + | Dyspnea, unspecified type | + + documented in this encounter"
--- OUTSIDE RECORDS SUMMARY | ~2020-01-06 | XMS | Encounter Summary ---
Demographics + + + | Address | [address] | | | [place] [address] | + + + | Home Phone | | + + + | Preferred Language | Unknown | + + + | Marital Status | Single | + + + | Alevism Affiliation | 1013 | + + + | Race | White | + + + | Ethnic Group | or | + + + Author + + + | Author | [facility] | | | and [place] | + + + | Organization | [facility] | | | and [...] Team Providers + +------+ + | Care Forestry Professor Name | Role | Phone | + [...] Radiology | Diagnoses | Maxood, | [facility] | | | | | Coronary | Bubba | Medicine | | | | | atherosclero | MD Yimi | [address] | | | | | sis of | [address] | [place], | | | | | unspecified | [place] | [place] | | | | | type of | [place], [place] | [address] | | | | | vessel, | [address] | Phone: | | | | | [place] | Phone: | [phone] | | | | | graft | [phone] | Fax: | | | | | Preoperative | Fax: | [phone] | | | | | | [phone] | | | | | | examination, | | | | | | | unspecified | | | | | | | Procedures | | | | | | | NM Nuclear | | | | | | | Stress Test | | | | | | | | | | | | | | (Vasodilator | | | | | | | ) CHG | | | | | | | MYOCARDIAL | | | | | | | SPECT | | | | | | | MULTIPLE | | | | | | | STUDIES VT | | | | | | | CV STRS TST | | | | | | | XERS&/OR RX | | | | | | | CONT ECG W/O | | | | | | | I&R VT | | | | | | | CARDIAC | | | | | | | STRESS | | | | | | | TST,INTERP/R | | | | | | | EPT ONLY | | | +--------+--------+ + + + + Reason for Visit Diagnostic/Screening (Routine) +--------+--------+ + + + + | Status | Reason | Specialty | Diagnoses / | Referred By | Referred To | | | | | Procedures | Contact | Contact | +--------+--------+ + + + + | Closed | | Radiology | Diagnoses | Maxood, | [facility] | | | | | Coronary | Bubba | Medicine | | | | | atherosclero | MD Yimi | [address] | | | | | sis of | [address] | [place], | | | | | unspecified | [place] | [place] | | | | | type of | [place], [place] | [address] | | | | | vessel, | [address] | Phone: | | | | | [place] | Phone: | [phone] | | | | | graft | [phone] | Fax: | | | | | Preoperative | Fax: | [phone] | | | | | | [phone] | | | | | | examination, | | | | | | | unspecified | | | | | | | Procedures | | | | | | | NM Nuclear | | | | | | | Stress Test | | | | | | | | | | | | | | (Vasodilator | | | | | | | ) CHG | | | | | | | MYOCARDIAL | | | | | | | SPECT | | | | | | | MULTIPLE | | | | | | | STUDIES VT | | | | | | | CV STRS TST | | | | | | | XERS&/OR RX | | | | | | | CONT ECG W/O | | | | | | | I&R VT | | | | | | | CARDIAC | | | | | | | STRESS | | | | | | | TST,INTERP/R | | | | | | | EPT ONLY | | | +--------+--------+ + + + + Encounter Details +--------+ + + + + | Date | Type | Department | Care Team | Description | +--------+ + + + + | 07/15/ | Hospital | [facility] | Bubba Maxwell | Pre-op exam; CAD | | 2014 | Encounter | MED CTR NUCLEAR | MD Yimi [address] | (coronary artery | | | | MEDICINE [address] [place] | disease) | | | | [address] [place], | [place] [address] | | | | | [place] [address] | [phone] | | | | | [phone] | | | +--------+ + + + [...] + + + | Blood Pressure | - | - | | + + + + + | Pulse | - | - | | + [...] + + + + | Weight | 68.9 kg (152 lb) | 07/15/2014 9:00 AM | | | | | PDT | | + + + + + | Height | - | - | | + + + + + | Body Mass Index | 25.29 | 06/24/2014 2:23 PM | | | | | PST | [...] | + +--------+ + + + | NM NUCLEAR STRESS | Routin | 07/15/2014 | Pre-op exam CAD | Results for this | | TEST (PHARMACOLOGIC | e | 12:40 PM | (coronary artery | procedure are in the | | - VASODILATOR) | | PDT | disease) | results section. | + +--------+ + + + documented in this encounter Results NM Nuclear Stress Test (Vasodilator) (07/15/2014 12:40 PM PDT) + + | Specimen | + + | | + + + + + | Impressions | Performed At | + + + | 1. Persantine EKG is negative for diagnostic changes. 2. | [facility] | | Abnormal Persantine Sestamibi myocardial perfusion study, notable | [facility] | | for moderate to large sized ischemic defect laterally as well as a | [facility] | | smaller distal anterior area of ischemia as detailed above, with a | - IMAGING | | normal left ventricular size and wall thickness. There is reduced | | | left ventricular systolic function. LVEF by gated SPECT 45 %. 3. | | | Patient will be seen for further consultation and management. | | | Signed by: Rafael Maxwell MD PhD FACC 07/15/2014, 12:40 | | + + + + + + | Narrative | Performed At | + + + | NUCLEAR MEDICINE STRESS TEST REPORT | [facility] | | Patient Name: Etelvina Benitez Study Date: 07/15/2014 Primary | [facility] | | Care Provider: Matt Kinney : | [facility] | | 1950 Age: 63 y.o. Gender: female CLINICAL | - IMAGING | | HISTORY/DIAGNOSIS: CAD, preop evaluation PERSANTINE SESTAMIBI | | | STRESS TEST Indication: CAD, preop evaluation Procedure: In | | | the supine position, 39.2 mg of Persantine was infused | | | intravenously over 4 minutes. Blood pressure and EKG were | | | monitored every 1 minute. 5 mL of normal saline was utilized to | | | flush the IV line. 2.5 minutes later, 10.9 mCi sestamibi | | | intravenous injection. SPECT myocardial perfusion imaging was | | | acquired with wall motion analysis. Rest imaging was performed | | | using 33.8 mCi Sestamibi intravenous injection. Repeated SPECT | | | myocardial perfusion imaging was acquired with wall motion analysis. | | | At the end of the procedure, 75 mg of aminophylline was infused | | | intravenously. Hemodynamics: Heart rate baseline 75 beats per | | | minute, peak 81 beats per minute. Blood pressure baseline 122/65 | | | mmHg, peak 130/70 mmHg. EKG baseline underlying sinus rhythm. | | | Normal EKG. Peak unchanged. Side Effects: None. | | | Arrhythmia: None. Persantine Sestamibi Myocardial Perfusion | | | Imaging Result: The Persantine Sestamibi tomographic images, | | | reviewed without the attenuation compensation resolution, revealed | | | an abnormal myocardial perfusion pattern as seen in short axis, | | | vertical long axis, and horizontal long axis projections, notable | | | for moderate to large sized moderate intensity lateral perfusion | | | defect, with partial reversibility, in addition to a small sized | | | moderate intensity defect involving the distal anterior myocardium | | | with partial reversibility. The left ventricular cavity is normal. | | | Gated SPECT reveals a normal left ventricular wall thickness | | | and motion. There is reduced left ventricular systolic function. | | | LVEF by gated SPECT is 45 %. | | + + + + + + + + | Performing | Address | City/State/Zipcode | Phone Number | | Organization | | | | + + + + + | [facility] | [address] | [place] | [phone] | | [facility] | | [address] | | | - IMAGING | | | | + + + + + documented in this encounter Visit Diagnoses + + | Diagnosis | + + | Pre-op exam Preoperative examination, unspecified | + + | CAD (coronary artery disease) Coronary atherosclerosis of unspecified type of vessel, | | [place] graft | + + documented in this encounter"
--- OUTSIDE RECORDS SUMMARY | ~2020-01-06 | XMS | Encounter Summary ---
Demographics + + + | Address | [address] | | | [place] [address] | + + + | Home Phone | | + + + | Preferred Language | Unknown | + + + | Marital Status | Single | + + + | Gnosticism Affiliation | 1013 | + + + | Race | White | + + + | Ethnic Group | or | + + + Author + + + | Author | [facility] | | | and [place] | + + + | Organization | [facility] | | | and [place] [...] Team Providers + +------+ + | Care Supervisor Name | Role | Phone | + +------+ + | Matt Kinney MD | PCP | | + +------+ + Encounter Details +--------+ + + + + | Date | Type | Department | Care Team | Description | +--------+ + + + + | 05/14/ | Orders Only | [facility] [place] | Layton Knapp, | DDD (degenerative | | 2015 | | NEUROSURGERY [address] | DO [address] | disc disease), | | | | [address] | [address] [place], [place] | cervical (Primary | | | | [place], [place] | [address] | Dx); Neuropathy | | | | [address] | | | | | | [phone] | | | +--------+ + + + [...] on filedocumented as of this encounter Results XR CERVICAL SPINE 2 OR 3 VIEWS (05/28/2014 2:37 PM PST) + + | Specimen | + + | | + + + + + | Narrative | Performed At | + + + | LIMITED CERVICAL SPINE: 05/28/2014 2:37 PM CLINICAL HISTORY: | MISCELANIOUS | | cervical stenosis COMPARISON: MRI 03/31/2014 FINDINGS: Upright | LAB | | lateral views of the cervical spine in neutral, flexion and | | | extension. Spine is imaged to C7. Alignment is normal. No loss of | | | alignment in flexion or extension. Vertebral body heights are | | | normal. Disc space narrowing at C4-C5, C5-C6 and C6-C7, with endplate | | | sclerotic changes and small osteophytes. No adjacent soft tissue | | | abnormality. IMPRESSION - Degenerative, spondylitic changes from | | | C4-C5 to C6-C7. No radiographic demonstration of instability. | | | Dictated and Signed by: David Couch MD Electronically signed: | | | 05/28/2014 4:11 PM | | + + + + + | Procedure Note | + + | John, Rad Results In - 05/28/2014 4:14 PM PST LIMITED CERVICAL SPINE: 05/28/2014 2:37 | | PMCLINICAL HISTORY: cervical stenosisCOMPARISON: MRI 03/31/2014FINDINGS: Upright lateral | | views of the cervical spine in neutral, flexion andextension. Spine is imaged to C7. | | Alignment is normal. No loss of alignment inflexion or extension.Vertebral body heights | | are normal. Disc space narrowing at C4-C5, C5-C6 andC6-C7, with endplate sclerotic | | changes and small osteophytes.No adjacent soft tissue abnormality.IMPRESSION - | | Degenerative, spondylitic changes from C4-C5 to C6-C7. Noradiographic demonstration of | | instability.Dictated and Signed by: David Couch MD Electronically signed: 05/28/2014 | | 4:11 PM | | | |Vertebral body heights are normal. Disc space narrowing at C4-C5, C5-C6 and | |C6-C7, with endplate sclerotic changes and small osteophytes. | | | |No adjacent soft tissue abnormality. | | | |IMPRESSION - Degenerative, spondylitic changes from C4-C5 to C6-C7. No | |radiographic demonstration of instability. | | | |Dictated and Signed by: David Couch MD | | Electronically signed: 05/28/2014 4:11 PM | + + + +---------+ + + | Performing | Address | City/State/Zipcode | Phone Number | | Organization | | | | + +---------+ + + | [facility] | | | [phone] | + +---------+ + + | [facility] | | | [phone] | + +---------+ + + documented in this encounter Visit Diagnoses + + | Diagnosis | + + | DDD (degenerative disc disease), cervical - Primary Degeneration of cervical | | intervertebral disc | + + | Neuropathy Mononeuritis of unspecified site | + + documented in this encounter"
--- OUTSIDE RECORDS SUMMARY | ~2020-01-06 | XMS | Encounter Summary ---
Demographics + + + | Address | [address] | | | [place] [address] | + + + | Home Phone | | + + + | Preferred Language | Unknown | + + + | Marital Status | Single | + + + | Mu-Ism Affiliation | 1013 | + + + | Race | White | + + + | Ethnic Group | or | + + + Author + + + | Author | [facility] | | | and [place] | + + + | Organization | [facility] | | | and [place] [...] Team Providers + +------+ + | Care Resident Care Assistant Name | Role | Phone | + +------+ + | Margie Gonzalez | PCP | | + +------+ + Reason for Visit +--------+--------+ + | Reason | Onset | Comments | | | Date | | +--------+--------+ + | Other | 10/22/ | lump at harvest site | | | 2019 | | +--------+--------+ + Encounter Details +--------+ + + + + | Date | Type | Department | Care Team | Description | +--------+ + + + + | 10/22/ | Telephone | [facility] | Bubba Maxwell | Other (lump at | | 2018 | | CARDIOLOGY [address] | MD Yimi [address] | harvest site) | | | | [place] [place], | [address] [place] | | | | | [place] [address] | [place] [address] | | | | | [phone] | [phone] | | | | | | | [...] this encounter Miscellaneous Notes Telephone Encounter - Erika Blancas RN - 10/22/2018 3:45 PM PDTPer conversation with Macie Elias, as long as the site does not get worse, it should eventually go away. Patient is no tified ...........................................Erika Blancas RN on 10/22/18 at 15:46 elephone Encounter - Erika Blancas RN - 10/22/2018 2:17 PM PDTGwendolyn was in the office to see Dr Maxwell on 10-14-18. She has had surgery recently for CAD and had a vein harvest done from the right i nner thigh. At the time of her visit I was asked to come in and look at the site. It was s wollen at the medial end of the incision, lump was about the size of a tangerine. Dr Maxwell gave her a course of Cephalexin 500mg BID for 7 days at that time. Gwendolyn called today to report that the lump has not gone away. There is no redness, no heat, no fever, not really any pain unless she bumps it. She is wondering what she should do at this time. I will consult Dr Elias in Dr Maxwell's absence to see if he has any advise at this time .... .......................................Erika Blancas RN on 10/22/18 at 14:20 documented in this encounter Plan of Treatment Not on filedocumented as of this encounter Visit Diagnoses Not on filedocumented in this encounter"
--- OUTSIDE RECORDS SUMMARY | ~2020-01-06 | XMS | Encounter Summary ---
Demographics + + + | Address | [address] | | | [place] [address] | + + + | Home Phone | | + + + | Preferred Language | Unknown | + + + | Marital Status | Single | + + + | Yazidism Affiliation | Unknown | + + + | Race | White | + + + | Ethnic Group | Other Race | + + + Author + + + | Author | [facility] | + + + | Organization | [facility] | + + + | Address | Unknown | + + + | Phone | Unavailable | + + + Support + + +---------+ + | Name | Relationship | Address | Phone | + + +---------+ + | Karen Unknown | ECON | Unknown | | + + +---------+ + Care Team Providers + +------+ + | Care Internet Marketing Manager Name | Role | Phone | + +------+ + | Margie Gonzalez PA-C | PCP | | + +------+ + Reason for Visit + +--------+ + | Reason | Onset | Comments | | | Date | | + +--------+ + | Medication changed | 09/26/ | | | | 2018 | | + +--------+ + Encounter Details +--------+ + + + + | Date | Type | Department | Care Team | Description | +--------+ + + + + | 09/26/ | Documentati | General Internal | Bharti Malik, | Medication changed | | 2019 | on | Medicine at Offsite | [address] | | | | | [address] | [address] | | | | | [place], | [place], [place] | | | | | [place] [address] | [address] | | | | | [phone] | [phone] | | | | | | | [...] this encounter Miscellaneous Notes Telephone Encounter - Bharti Malik MD - 09/26/2018 6:27 PM PDTNotified by RNs that [facility] Cardiothoracic surgery fu appt today, patient's Lasix, Iron, and KCl were d/c'd. Confirm ed on review of CT Surg note in Care Everywhere. Meds removed from list. Also notified by SW team late this afternoon here that patient is being discharged tomorrow as her insurance decided today that they will not cover any additional days of rehab. Famil y will be picking her up in the AM to drive her back to [place]. Will route to JACK Orozco to see if possible for her to follow up with a warm handoff to PCP next week given she is more familiar with the patient's case. documented in this encounter Plan of Treatment Not on filedocumented as of this encounter Visit Diagnoses Not on filedocumented in this encounter"
--- OUTSIDE RECORDS SUMMARY | ~2020-01-06 | XMS | Encounter Summary ---
Demographics + + + | Address | [address] | | | [place] [address] | + + + | Home Phone | | + + + | Preferred Language | Unknown | + + + | Marital Status | Single | + + + | Christianity Affiliation | 1013 | + + + | Race | White | + + + | Ethnic Group | or | + + + Author + + + | Author | [facility] | | | and [place] | + + + | Organization | [facility] | | | and [place] | [...] Team Providers + +------+ + | Care Gas Fitter Apprentice Name | Role | Phone | + +------+ + | Matt Kinney MD | PCP | | + +------+ + Encounter Details +--------+ + + + + | Date | Type | Department | Care Team | Description | +--------+ + + + + | 03/27/ | Orders Only | [facility] [place] | Zen Carey | Kidney problem | | 2013 | | NEUROLOGY [facility] | MD Macie Need updated | (Primary Dx) | | | | [address] [facility] [facility], | address | | | | | [address] [place] | | | | | | [place] [address] | | | | | | [phone] | | | +--------+ + + + [...] of this encounter Plan of Treatment + +------+--------+ + + | Name | Type | Priori | Associated Diagnoses | Order Schedule | | | | ty | | | + +------+--------+ + + | BUN | Lab | Routin | Kidney problem | 1 Occurrences | | | | e | | starting 03/27/2014 | | | | | | until 03/27/2015 | + +------+--------+ + + | Creatinine | Lab | Routin | Kidney problem | 1 Occurrences | | | | e | | starting 03/27/2014 | | | | | | until 03/27/2015 | + +------+--------+ + + documented as of this encounter Visit Diagnoses + + | Diagnosis | + + | Kidney problem - Primary Unspecified disorder of kidney and ureter | + + documented in this encounter"
--- OUTSIDE RECORDS SUMMARY | ~2020-01-06 | XMS | Encounter Summary ---
Demographics + + + | Address | [address] | | | [place] [address] | + + + | Home Phone | | + + + | Preferred Language | Unknown | + + + | Marital Status | Single | + + + | Shinto Affiliation | Unknown | + + + | Race | White | + + + | Ethnic Group | Other Race | + + + Author + + + | Organization | Unknown | + + + | Address | Unknown | + + + | Phone | Unavailable | + + + Support + + +---------+ + | Name | Relationship | Address | Phone | + + +---------+ + | Karen Booth | ECON | Unknown | | + + +---------+ + Care Team Providers + +------+ + | Care Data Center Operator Name | Role | Phone | + +------+ + | Margie Gonzalez PA-C PCP | | + +------+ + Encounter Details +--------+--------+ + + + | Date | Type | Department | Care Team | Description | +--------+--------+ + + + | /30/ | Travel | | | | | 2019 | | | | | +--------+--------+ + + + Social History + +-------+ [...]
--- OUTSIDE RECORDS SUMMARY | ~2020-01-06 | XMS | Encounter Summary ---
Demographics + + + | Address | [address] | | | [place] [address] | + + + | Home Phone | | + + + | Preferred Language | Unknown | + + + | Marital Status | Single | + + + | Baptism Affiliation | 1013 | + + + | Race | White | + + + | Ethnic Group | or | + + + Author + + + | Author | [facility] | | | and [place] | + + + | Organization | [facility] | | | and [place] | [...] Team Providers + +------+ + | Care Pharmacology Teacher Name | Role | Phone | + +------+ + | aMrgie Gonzalez | PCP | | + +------+ + Reason for Referral Evaluate & Treat (Routine) +--------+ + + + + + | Status | Reason | Specialty | Diagnoses / | Referred By | Referred To | | | | | Procedures | Contact | Contact | +--------+ + + + + + | Closed | Specialty | Pulmonary | Diagnoses | Maxood, | [facility] | | | Services | Disease / | Chronic | Bubba | Pulmonary | | | Required | Pulmonology | obstructive | MD Yimi | [address] | | | | | pulmonary | [address] | [place], | | | | | disease, | [place] | [place] | | | | | unspecified | [place], [place] | [address] | | | | | COPD type | [address] | Phone: | | | | | ([facility]) | Phone: | [phone] | | | | | | [phone] | Fax: | | | | | | Fax: | [phone] | | | | | | [phone] | | +--------+ + + + + + Reason for Visit + + + | Reason | Comments | + + + | Follow-up | | + + + Evaluate & Treat (Routine) +--------+--------+ + + + + | Status | Reason | Specialty | Diagnoses / | Referred By | Referred To | | | | | Procedures | Contact | Contact | +--------+--------+ + + + + | Closed | | Cardiology | Diagnoses | Gonzalez, | [facility] | | | | | Abnormal | TAHIR Higgins | Cardiology | | | | | electrocardi | [address] | [address] | | | | | ogram (ECG) | [address] | [place], | | | | | (EKG) | [place], | [place] | | | | | Procedures | [place] | [address] | | | | | CLIENT CARE MANAGER | [address] | Phone: | | | | | | Phone: | [phone] | | | | | | [phone] | Fax: | | | | | | Fax: | [phone] | | | | | | [phone] | | +--------+--------+ + + + + Encounter Details +--------+---------+ + + + | Date | Type | Department | Care Team | Description | +--------+---------+ + + + | 08/13/ | Office | [facility] | Bubba Ornelas | Abnormal heart rate | | 2017 | Visit | CARDIOLOGY [address] | MD Yimi [address] | (Primary Dx); | | | | [address] [place], | [address] [place] | Hyperlipidemia, | | | | [place] [address] | [place] [address] | unspecified | | | | [phone] | [phone] | hyperlipidemia type; | | | | | | Stenosis of carotid | | | | | | artery, unspecified | | | | | | laterality; | | | | | | Functional murmur; | | | | | | Hypertension, | | | | | | unspecified type; | | | | | | SOB (shortness of | | | | | | breath); Chronic | | | | | | obstructive | | | | | | pulmonary disease, | | | | | | unspecified COPD | | | | | | type (HCC); Tobacco | | | | | | [...] + + + | Blood Pressure | 124/68 | 08/13/2017 1:09 PM | | | | | PDT | | + + + + + | Pulse | 90 | 08/13/2017 1:09 PM | | | | | PDT | | + + + + + | Temperature | - | - | | + + + + + | Respiratory Rate | 18 | 08/13/2017 1:09 PM | | | | | PDT | | + + + + + | Oxygen Saturation | - | - | | + + + + + | Inhaled Oxygen | - | - | | | Concentration | | | | + + + + + | Weight | 56.7 kg (125 lb) | 08/13/2017 1:09 PM | | | | | PDT | | + + + + + | Height | 165.1 cm (5' 5") | 08/13/2017 1:09 PM | | | | | PDT | | + + + + + | Body Mass Index | 20.8 | 08/13/2017 1:09 PM | | | | | PDT | | + + + + + documented in this encounter Patient Instructions Patient Instructions Erika Blancas RN - 08/13/2017 1:30 PM PDT Pulmonary Referral - someone from Pulmonology will call you to arrange an appointment. INSTRUCTIONS Etelvina Jean Pulse 1950 Procedure: Left heart catheterization Day: Date: Check-in time: 1. [facility] ([facility]-day surgery). 2. Stop taking Metformin the day prior, the day of and the day after your procedure: , , and . You will resume your previous dose on . 3. Do not eat or drink anything after midnight prior to the procedure. 4. Take all of your regular medications including Aspirin with a sip of water the morning o f the procedure except metformin as listed above. 5. The procedure lasts approximately one hour, and you will have conscious sedation for the procedure which will help decrease pain and will make you groggy. 6. After the procedure you will remain either in recovery or same day surgery center for at least 2 hours, part of this time you may have to lie flat depending on the procedure. 7. Make sure you have a lifter/driver to take you home. Your lifter/driver will also need to sign you ou t, to take responsibility for you, so it can not be a taxi or transportation system, unless there is a caregiver with transportation. 8. Please call us with any questions or concerns at . If you need to cancel the procedure at the last minute, such as due to illness, and you are calling after regular office hours, call the main hospital line at and ask for nursing fabric coating supervisor t o let them know you are cancelling . Follow up appointment in Cardiology: 1-2 months Provider: Rafael Ornelas MD Date: Check-in time: documented in this encounter Progress Notes Bubba Ornelas MD - 08/13/2017 1:30 PM PDTFormatting of this note might be differe nt from the original. PATIENT NAME: Etelvina Benitez : 1950: AGE: 66 y.o. REFERRED BY: Margie Gonzalez PRIMARY CARE: TAHIR Faustin Dr. CARDIOLOGY OFFICE VISIT Date of Service: 08/13/17 HISTORY OF PRESENT ILLNESS: Etelvina Benitez is a 66 y.o. female with a history of established carotid artery disease, multivessel CAD, poorly controlled diabetes, hyperlipidemia, and ongoing tobacco use here f or further consultation. She has been referred by her primary provider Margie Naranjo PA-C for further consultation after recent complaints of exertional dyspnea and chest heaviness. Tahir sosa underwent invasive workup in 2014 which revealed multivessel CAD as detailed above - a s part of preoperative evaluation but never returned for follow-up visit and moved to [facility], having only returned recently. She ended up undergoing cervical fusion surgery in [facility] and did not have any further cardiology follow-up there. 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 daily Living situation: with boyfriend CURRENT MEDICATIONS Current Outpatient Prescriptions Medication Sig Dispense Refill ALPRAZolam (XANAX PO) Take by mouth Daily as needed. aspirin 81 mg EC tablet Take 81 mg by mouth Daily. atorvaSTATin (LIPITOR) 80 MG tablet Take 80 mg by mouth nightly. CALCIUM-VITAMIN D PO Take 1 tablet by mouth 2 times daily. DULoxetine (CYMBALTA) 60 MG capsule Take 60 mg by mouth Daily. Insulin Glargine (TOUJEO SOLOSTAR SC) Inject 50 Units under the skin Daily. levothyroxine (SYNTHROID, LEVOTHROID) 112 mcg tablet Take 112 mcg by mouth every mornin g (before breakfast). losartan (COZAAR) 50 mg tablet Take 50 mg by mouth Daily. metFORMIN (GLUCOPHAGE) 500 mg tablet Take 500 mg by mouth 2 times daily (with breakfast & dinner). Multiple Vitamin (MULTI-VITAMIN DAILY PO) Take 1 tablet by mouth Daily. omeprazole (PRILOSEC) 20 mg capsule Take 20 mg by mouth every morning (before breakfast ). VENTOLIN HFA 108 (90 Base) MCG/ACT inhaler Inhale 1 puff into the lungs as needed. No current facility-administered medications for this visit. ALLERGIES Allergies Allergen Reactions Oxycodone Itching Oxycontin intolarant: Oxycodone tolerates. ROS I have reviewed the Review of Systems form dated today and scanned into the media tab. OBJECTIVE: PHYSICAL EXAM BP 124/68 | Pulse 90 | Resp 18 | Ht 1.651 m (5' 5") | Wt 56.7 kg (125 lb) | BMI 20.80 kg/m Physical Exam Constitutional: She is oriented to person, place, and time. She appears well-developed and well-nourished. HENT: Head: Normocephalic. Eyes: No scleral icterus. Neck: Normal carotid pulses and no JVD present. Carotid bruit is not present. Right endarterectomy scar noted. Cardiovascular: Normal rate, regular rhythm, S1 normal, S2 normal, normal heart sounds and intact distal pulses. PMI is not displaced. Exam reveals no gallop and no midsystolic clic k. No murmur heard. Pulses: Carotid pulses are 2+ on the right side, and 2+ on the left side. Radial pulses are 2+ on the right side, and 2+ on the left side. Dorsalis pedis pulses are 1+ on the right side, and 1+ on the left side. Pulmonary/Chest: Effort normal and breath sounds normal. No accessory muscle usage. No resp iratory distress. She has no wheezes. She has no rhonchi. She has no rales. Abdominal: Soft. Normal aorta and bowel sounds are normal. She exhibits no abdominal bruit. There is no hepatosplenomegaly. There is no tenderness. Musculoskeletal: She exhibits no edema. Neurological: She is alert and oriented to person, place, and time. Gait normal. Skin: Skin is warm and dry. No cyanosis. Nails show no clubbing. Psychiatric: She has a normal mood and affect. Her mood appears not anxious. She does not e xhibit a depressed mood. Vitals reviewed. ECG: Normal sinus rhythm, heart rate 87, diffuse nonspecific T wave abnormality, abnormal ECG. LAB RESULTS: LIPID Lab Results Component Value Date HDLEX 44.5 06/11/2014 TRIGEX 177 06/11/2014 CHOLEX 195 06/11/2014 CHEMISTRY Lab Results Component Value Date GLU [...] akinesis, severe MR, moderate left atrial enlargement. ASSESSMENT: 1. CAD - patient was shown to have three-vessel CAD as detailed above in 2014 but did not follow-up to discuss options for further management. Now she is experiencing symptoms of ex ertional discomfort, dyspnea and chest pressure. Given long-standing history of uncontrolle d diabetes and ongoing tobacco use, patient may very well be experiencing more severe CAD, a nd her recent echocardiogram suggests LV systolic dysfunction, which is new. She would bene fit from definitive coronary evaluation including left heart catheterization and coronary an giography. Patient understands the indications for the procedure as well as relevant risks and benefits and agrees to proceed. 2. Hyperlipidemia - her target LDL should [...] f rom consideration of consultation with an client technologies specialist if feasible. Patient also would b enefit from further dietary education - she describes poor dietary choices including freque nt indulgence and ice cream and white bread. We discussed concept of glycemic index which w ould benefit from future reinforcement. 3. Tobacco cessation - this was discussed at length (> 5 minutes) - especially given her m ultiple coronary disease risk factors & established vascular disease. She is hopeful to at least be able to cut back preoperatively. 4. Carotid artery disease - patient will benefit from future noninvasive evaluation given her history of previous endarterectomy. 5. Pulmonary - given patient's history of heavy tobacco use, she may benefit from consider ation of pulmonary function testing and possible pulmonary consultation re: potential of und erlying COPD. 6. Mitral regurgitation - this is a new finding, and may be related to progressive multive ssel CAD along with LV enlargement and systolic dysfunction. We will discuss options for de finitive therapy further once her cardiac catheterization has been completed. PLAN: 1. Left heart catheterization and coronary angiography. 2. Carotid duplex ultrasound examination within one year. 3. Tobacco cessation. 4. Continue current medications for now. 5. Improved diabetic control. Recommend endocrinology consultation. 6. Consider future consultation with pulmonology regarding likely underlying COPD. 7. Follow-up visit in a few weeks. 8. Recheck fasting lipid profile in the future. Portions of this report were transcribed using voice recognition software. Every effort wa s made to ensure accuracy; however, inadvertent computerized mold making supervisor errors may be pre sent. Electronically signed by: Rafael Ornelas MD PhD FACC 08/13/2017 documented in t his encounter Plan of Treatment + + +--------+ + + | Name | Type | Priori | Associated Diagnoses | Order Schedule | | | | ty | | | + + +--------+ + + | Referral to | Outpatient | Routin | Chronic | Ordered: 08/13/2017 | | Pulmonary | Referral | e | Obstructive | | | | | | Pulmonary Disease, | | | | | | Unspecified Copd | | | | | | Type (Hcc) | | + + +--------+ + + documented as of this encounter Procedures + +--------+ + + + | Procedure Name | Priori | Date/Time | Associated Diagnosis | Comments | | | ty | | | | + +--------+ + + + | LABS - EXTERNAL SCAN | | 08/20/2017 | | Results for this | | | | 12:00 AM | | procedure are in the | | | | PDT | | results section. | + +--------+ + + + | ECG 12 LEAD | Routin | 08/13/2017 | Abnormal heart | Results for this | | | e | 8:13 PM | rate | procedure are in the | | | | PDT | Hyperlipidemia, | results section. | | | | | unspecified | | | | | | hyperlipidemia type | | | | | | Stenosis of carotid | | | | | | artery, unspecified | | | | | | laterality | | | | | | Functional murmur | | | | | | Hypertension, | | | | | | unspecified type | | | | | | SOB (shortness of | | | | | | breath) | | + +--------+ + + + | EXTERNAL LAB: BUN | Routin | 07/18/2017 | | Results for this | | | e | | | procedure are in the | | | | | | results section. | + +--------+ + + + | EXTERNAL LAB: | Routin | 07/18/2017 | | Results for this | | GLUCOSE | e | | | procedure are in the | | | | | | results section. | + +--------+ + + + | EXTERNAL LAB: | Routin | 07/18/2017 | | Results for this | | TROPONIN I | e | | | procedure are in the | | | | | | results section. | + +--------+ + + + | EXTERNAL LAB: | Routin | 07/18/2017 | | Results for this | | CALCIUM | e | | | procedure are in the | | | | | | results section. | + +--------+ + + + | EXTERNAL LAB: CARBON | Routin | 07/18/2017 | | Results for this | | DIOXIDE | e | | | procedure are in the | | | | | | results section. | + +--------+ + + + | EXTERNAL LAB: | Routin | 07/18/2017 | | Results for this | | CHLORIDE | e | | | procedure are in the | | | | | | results section. | + +--------+ + + + | EXTERNAL LAB: | Routin | 07/18/2017 | | Results for this | | POTASSIUM | e | | | procedure are in the | | | | | | results section. | + +--------+ + + + | EXTERNAL LAB: SODIUM | Routin | 07/18/2017 | | Results for this | | | e | | | procedure are in the | | | | | | results section. | + +--------+ + + + | EXTERNAL LAB: B TYPE | Routin | 07/18/2017 | | Results for this | | NATURETIC PEPTIDE | e | | | procedure are in the | | | | | | results section. | + +--------+ + + + | EXTERNAL LAB: | Routin | 07/18/2017 | | Results for this | | CREATININE | e | | | procedure are in the | | | | | | results section. | + +--------+ + + + documented in this encounter Results LABS - EXTERNAL SCAN (08/20/2017 12:00 AM PDT) + + + | Narrative | Performed At | + + + | Ordered by an | | | unspecified provider. | | + + + ECG 12 lead (08/13/2017 8:13 PM PDT) + + + + + + | Component | Value | Ref Range | Performed | Pathologist | | | | | At | Signature | + + + + + + | VENTRICULAR | 90 | BPM | [facility] | | | RATE EKG | | | | | + + + + + + | ATRIAL RATE | 90 | BPM | [facility] | | + + + + + + | P-R | 156 | ms | [facility] | | | INTERVAL | | | | | + + + + + + | QRS | 98 | ms | [facility] | | | DURATION | | | | | + + + + + + | Q-T | 386 | ms | [facility] | | | INTERVAL | | | | | + + + + + + | Q-T | 472 | ms | [facility] | | | INTERVAL | | | | | | (CORRECTED) | | | | | + + + + + + | P WAVE AXIS | 57 | degrees | [facility] | | + + + + + + | QRS AXIS | 83 | degrees | [facility] | | + + + + + + | T AXIS | 9 | degrees | [facility] | | + + + + + + | INTERPRETAT | Normal sinus | | [facility] | | | ION TEXT | rhythmPossible Left | | | | | | atrial | | | | | | enlargementBorderline | | | | | | ECGNo previous ECGs | | | | | | availableConfirmed by | | | | | | YIMI ORNELAS MD | | | | | | ([id number]) on 08/13/2017 | | | | | | 8:12:58 PM | | | | + + + [...] | | | + +---------+ + + External Lab: BUN (07/18/2017) + +-------+ + + + | Component | Value | Ref Range | Performed | Pathologist | | | | | At | Signature | + +-------+ + + + | BUN, | 15 | | | | | External | | | | | + +-------+ + + + External Lab: Glucose (07/18/2017) + +-------+ + + + | Component | Value | Ref Range | Performed | Pathologist | | | | | At | Signature | + +-------+ + + + | Glucose, | 92 | | | | | External | | | | | + +-------+ + + + External Lab: Troponin I (07/18/2017) + +-------+ + + + | Component | Value | Ref Range | Performed | Pathologist | | | | | At | Signature | + +-------+ + + + | Troponin I, | <0.10 | | | | | External | | | | | + +-------+ + + + External Lab: Calcium (07/18/2017) + +-------+ + + + | Component | Value | Ref Range | Performed | Pathologist | | | | | At | Signature | + +-------+ + + + | Calcium, | 8.9 | | | | | External | | | | | + +-------+ + + + External Lab: Carbon Dioxide (07/18/2017) + +-------+ + + + | Component | Value | Ref Range | Performed | Pathologist | | | | | At | Signature | + +-------+ + + + | Carbon | 26 | | | | | Dioxide, | | | | | | External | | | | | + +-------+ + + + External Lab: Chloride (07/18/2017) + +-------+ + + + | Component | Value | Ref Range | Performed | Pathologist | | | | | At | Signature | + +-------+ + + + | Chloride, | 110 | | | | | External | | | | | + +-------+ + + + External Lab: Potassium (07/18/2017) + +-------+ + + + | Component | Value | Ref Range | Performed | Pathologist | | | | | At | Signature | + +-------+ + + + | Potassium, | 4.1 | | | | | External | | | | | + +-------+ + + + External Lab: Sodium (07/18/2017) + +-------+ + + + | Component | Value | Ref Range | Performed | Pathologist | | | | | At | Signature | + +-------+ + + + | Sodium, | 143 | | | | | External | | | | | + +-------+ + + + External Lab: B Type Naturetic Peptide (07/18/2017) + +---------+ + + + | Component | Value | Ref Range | Performed | Pathologist | | | | | At | Signature | + +---------+ + + + | B-Type | 365 (A) | 100 | | | | Naturetic | | | | | | Peptide, | | | | | | External | | | | | + +---------+ + + + + + | Specimen | + + | Blood | + + External Lab: Creatinine (07/18/2017) + +-------+ + + + | Component | Value | Ref Range | Performed | Pathologist | | | | | At | Signature | + +-------+ + + + | Creatinine, | 0.700 | | | | | External | | | | | + +-------+ + + + + + | Specimen | + + | Blood | + + documented in this encounter Visit Diagnoses + + | Diagnosis | + + | Abnormal heart rate - Primary | + + | Hyperlipidemia, unspecified hyperlipidemia type | + + | Stenosis of carotid artery, unspecified laterality | + + | Functional murmur Undiagnosed cardiac murmurs | + + | Hypertension, unspecified type | + + | SOB (shortness of breath) Shortness of breath | + + | Chronic obstructive pulmonary disease, unspecified COPD type (HCC) | + + | Tobacco use disorder | + + documented in this encounter
--- OUTSIDE RECORDS SUMMARY | ~2020-01-06 | XMS | Encounter Summary ---
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 | Phone | [...] [facility] | | | | | Lumbosacral | [place], | [address] | | | | | spondylosis | Javon Bautista MD | [place], | | | | | without | [address] | [place] | | | | | myelopathy | [place] | [address] | | | | | Procedures | [place], [place] | Phone: | | | | | [place] | [address] | [phone] | | | | | DX/THER AGNT | Phone: | Fax: | | | | | PAR[place]ERT | [phone] | [phone] | | | | | FACET JOINT, | Fax: | | | | | | LUMBAR/SAC, | [phone] | | | | | | 1ST LEVEL | | | | | | | [place] INJ | | | | | | | DX/THER AGNT | | | | | | | PARAVERT | | | | | | | FACET JOINT, | | | | | | | LUMBAR/SAC, | | | | | | | 2ND LEVEL | | | | | | | [place] | | | | | | | TRIAMCINOLON | | | | | | | E ACET INJ | | | | | | | NOS, 10 MG | | | | | | | Bilateral | | | | | | | L4-5, L5-S1 | | | | | | | Facet-referr | | | | | | | [address] | | | | | | | Jair Aiken | | | +--------+--------+ + + + + Encounter Details +--------+ + + + + | Date | Type | Department | Care Team | Description | +--------+ + + + + | 03/11/ | [facility] | [facility] | Javon Ivy | Lumbosacral | | 2013 | Encounter | MED [facility]RAY [address] | [address], [address] | spondylosis without | | | | [place] | [address] [place] | myelopathy | | | | [place] [address] | [id number] | | | | | [phone] | | | | | | | Client Leader, Wsashwini | | | | | | [place] | | +--------+ + + + + [...] +---------+ + + | Blood Pressure | 117/72 | 03/11/2014 4:09 PM | | | | | PST | | + +---------+ + + | Pulse | 85 | 03/11/2014 4:09 PM | | | | | PST | | + +---------+ + + | [...] + +---------+ + + | gabapentin | Take 1 capsule in | 90 | 2 | 12/25/19 | | | (NEURONTIN) 300 mg | morning and 2 | capsule | | 14 | 5 | | capsule | capsules at bedtime | | | | | + + [...] documented as of this encounter Miscellaneous Notes Miscellaneous - [facility] - 03/16/2014 12:00 AM PST documented in this encounter Plan of Treatment Not on filedocumented as of this encounter Procedures + +--------+ + + + | Procedure Name | Priori | Date/Time | Associated Diagnosis | Comments | | | ty | | | | + +--------+ + + + | FL FACET INJECTION | Routin | 03/11/2014 | Lumbosacral | Results for this | | LUMBAR SACRAL | e | 3:50 PM | spondylosis without | procedure are in the | | | | PST | myelopathy | results section. | + +--------+ + + + documented in this encounter Results FL Facet Injection Lumbar Sacral (03/11/2014 3:50 PM PST) + + | Specimen | + + | | + + + + + | Narrative | Performed At | + + + | 03/11/2014 Bilateral Lumbar Facet Steroid Injections Diagnosis: | [facility] | | Lumbar Spondylosis ICD-9 Code 721.3 Etelvina Jean [facility] | [facility] | | presents to the fluoroscopy suite for fluoroscopically-guided | [facility] | | bilateral L4-L5 and L5-S1 facet injections as part of conservative | - IMAGING | | management for chronic pain with lumbar spondylosis. After informed | | | consent was obtained, the patient laid in the prone position on the | | | fluoroscopy table. The areas were identified under fluoroscopic | | | guidance. The areas were prepped and draped in sterile fashion. A | | | 25-gauge, 1.5-inch needle was inserted into each region and | | | approximately 3 mL of buffered 1% lidocaine was infused. Then, a | | | 22-gauge spinal needle was inserted into the superior portion of | | | each facet under fluoroscopic guidance. Confirmation into the joint | | | spaces was obtained with infusion of approximately 1 mL of Omnipaque | | | contrast which showed outline of the facet joints. Then, a | | | combination of 2 mL of 1% lidocaine and 2 mL of 40 mg/mL Kenalog was | | | infused divided between the 4 joints. The patient tolerated the | | | procedure well without complications. Pre- and post-procedure blood | | | pressures were stable. The patient was given verbal as well as written | | | follow-up instructions. Prior to the start of the procedure, | | | the following were performed and/or verified, including correct | | | patient identity, correct site/side marked and visible, agreement on | | | the procedure to be done, correct patient positioning and an | | | accurate procedure consent form. Any safety precautions based on | | | clinical history and/or medication use have been addressed. I | | | personally performed the procedure above. Estimated blood loss: | | | Minimal Complications: None Findings: As expected Anesthesia: Local | | | 1% Lidocaine | | + + + + + | Procedure Note | + + | Javon Ivy MD - 03/11/2014 4:38 PM PST 03/11/2014ilateral Lumbar Facet | | Steroid InjectionsDiagnosis: Lumbar SpondylosisICD-9 Code 721.3Deborah Miranda Beintez | | presents to the fluoroscopy suite for fluoroscopically-guided bilateral L4-L5 and L5-S1 | | facet injections as part of conservative management for chronic pain with lumbar | | spondylosis. After informed consent was obtained, the patient laid in the prone position | | on the fluoroscopy table. The areas were identified under fluoroscopic guidance. The | | areas were prepped and draped in sterile fashion. A 25-gauge, 1.5-inch needle was | | inserted into each region and approximately 3 mL of buffered 1% lidocaine was infused. | | Then, a 22-gauge spinal needle was inserted into the superior portion of each facet | | under fluoroscopic guidance. Confirmation into the joint spaces was obtained with | | infusion of approximately 1 mL of Omnipaque contrast which showed outline of the facet | | joints. Then, a combination of 2 mL of 1% lidocaine and 2 mL of 40 mg/mL Kenalog was | | infused divided between the 4 joints. The patient tolerated the procedure well without | | complications. Pre- and post-procedure blood pressures were stable. The patient was | | given verbal as well as written follow-up instructions. Prior to the start of the | | procedure, the following were performed and/or verified, including correct patient | | identity, correct site/side marked and visible, agreement on the procedure to be done, | | correct patient positioning and an accurate procedure consent form. Any safety | | precautions based on clinical history and/or medication use have been addressed. I | | personally performed the procedure above.Estimated blood loss: MinimalComplications: | | NoneFindings: As expectedAnesthesia: Local 1% Lidocaine | + + + + + + + | Performing | Address | City/State/Zipcode | Phone Number | | Organization | | | | + + + + + | [facility] | [address] | [place] | [phone] | | [facility] | | [address] | | | - IMAGING | | | | + + + + + documented in this encounter Visit Diagnoses + + | Diagnosis | + + | Lumbosacral spondylosis without myelopathy | + + documented in this encounter Administered Medications + +--------+ +-------+------+------+ | Medication Order | MAR | Action | Dose | Rate | Site | | | Action | Date | | | | + +--------+ +-------+------+------+ | iohexol (OMNIPAQUE 300) 300 | Given | 03/11/20 | 3 mLs | | | | mg/mL injection 3 mL 3 mL, | | 14 4:09 | | | | | INTRATHECAL, ONCE, 03/11/14 | | PM PST | | | | | at 1615, For 1 dose | | | | | | + +--------+ +-------+------+------+ +---+---+ | | | +---+---+ + +-------+ +-------+---+ + | lidocaine 1% injection 5 mL 5 | Given | 03/11/20 | 5 mLs | | Other | | mL, Intradermal, ONCE, Wed | | 14 4:15 | | | (Comment | | 03/11/14 at 1615, For 1 dose | | PM PST | | | ) | + +-------+ +-------+---+ + +---+---+ | | | +---+---+ + +-------+ +-------+---+---+ | sodium bicarbonate (NEUT) 4% | Given | 03/11/20 | 2 mLs | | | | injection 2 mL 2 mL, Topical, | | 14 4:00 | | | | | ONCE, 03/11/14 at 1615, For 1 | | PM PST | | | | | dose | | | | | | + +-------+ +-------+---+---+ +---+---+ | | | +---+---+ + +-------+ +-------+---+---+ | triamcinolone acetonide | Given | 03/11/20 | 40 mg | | | | (KENALOG-40) 40 mg/mL injection | | 14 4:09 | | | | | 40 mg 40 mg, Intra-articular, | | PM PST | | | | | ONCE, 03/11/14 at 1615, For 1 | | | | | | | dose, Shake well. Not for IV | | | | | | | use., | | | | | | + +-------+ +-------+---+---+ +---+---+ | | | +---+---+ documented in this encounter"
--- OUTSIDE RECORDS SUMMARY | ~2020-01-06 | XMS | Encounter Summary ---
Demographics + + + | Address | [address] | | | [place] [address] | + + + | Home Phone [...] + + + | Author | [facility] | | | and [place] | + + + | Organization | [facility] | | | and [place] [...] Team Providers + +------+ + | Care Branch Customer Service Representative Name | Role | Phone | + [...] + + | Closed | Specialty | Cardiac | Diagnoses | Maxood, | [facility] | | | Services | Rehabilitatio | Heart valve | Bubba | | | | Required | n | replaced | MD Yimi | Rehabilitatio | | | | | Mitral valve | [address] | [address] | | | | | St [place] | [address] [place] | | | | | insufficienc | [place], [place] | [place], [place] | | | | | y, | [address] | [address] | | | | | unspecified | Phone: | Phone: | | | | | etiology | [phone] | [phone] | | | | | Essential | Fax: | Fax: | | | | | hypertension | [phone] | [phone] | | | | | Poor | [...] | | | | | | | REHAB | | | +--------+ + + + + + Diagnostic/Screening (Routine) +--------+--------+ + + + + | Status | Reason | Specialty | Diagnoses / | Referred By | Referred To | | | | | Procedures | Contact | Contact | +--------+--------+ + + + + | Closed | | Radiology | Diagnoses | Maxood, | [facility] | | | | | Heart valve | Bubba | [address] | | | | | replaced | MD Yimi | [place], | | | | | Mitral valve | [address] | [place] | | | | | | St [place] | [address] | | | | | insufficienc | [place] | Phone: | | | | | y, | [address] | [phone] | | | | | unspecified | Phone: | Fax: | | | | | etiology | [phone] | [phone] | | | | | Essential | Fax: | | | | | | hypertension | [phone] | | | | | | Poor [...] Description | +--------+---------+ + + + | 10/14/ | Office | [facility] | Bubba Maxwell | Heart valve replaced | | 2019 | Visit | CARDIOLOGY [address] | MD Yimi [address] | (Primary Dx); | | | | [address] [place], | [address] [place] | Mitral valve | | | | [place] [address] | [place] [address] | insufficiency, | | | | [phone] | [phone] | unspecified | | | | | | etiology; Essential | | | | | | hypertension; | | | | | | Functional murmur; | | | | | | Stenosis of carotid | | | | | | artery, unspecified | | | | | | laterality; Abnormal | | | | | | heart rate; Poor | | | | | | circulation; Mixed | | | | | | hyperlipidemia; SOB | | | | | | (shortness of | | | | | | breath); Type 2 | | | | | | diabetes mellitus | | | | | | without | | | | | | complication, | | | | | | unspecified whether | | | | | | 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 insulin | | | | | | use (HCC) | +--------+---------+ + + + Social History [...] + + + | Blood Pressure | 86/50 | 10/14/2018 2:02 PM | | | | | PDT | | + + + + + | Pulse | 84 | 10/14/2018 2:02 PM | | | | | PDT | | + + + + + | Temperature | - | - | | + + + + + | Respiratory Rate | 16 | 10/14/2018 2:02 PM | | | | | PDT | | + + + + + | Oxygen Saturation | - | - | | + + + + + | Inhaled Oxygen | - | - | | | Concentration | | | | + + + + + | Weight | 49.8 kg (109 lb 12.6 | 10/14/2018 2:02 PM | | | | oz) | PDT | | + + + + + | Height | 165.1 cm (5' 5") | 10/14/2018 2:02 PM | | | | | PDT | | + + + + + | Body Mass Index | 18.27 | 10/14/2018 2:02 PM | | | | | PDT | | + + + + + documented in this encounter Patient Instructions Patient Instructions Erika Blancas RN - 10/14/2018 2:00 PM PDT Keflex (Cefalexin) 500mg - take one capsule by mouth twice daily until gone. Cardiac Rehab - someone from that department will call you to arrange an appointment. Dr Leah dale would like you to try to come to at least 2-3 visits. Blood test: Fasting- 12 hours prior to test, no food, no caffiene, water is ok Date Due: 3 months, do labs just prior to your next visit with Dr Maxwell Where to go for labs: Lab of your choice, please see lab orders, take them with you to the lab. Echo: Date: Check-In Time: Where to Check In: Follow up appointment: 3 months with Echo on same day Provider: Diclia Maxwell MD Date: Check-In Time: documented in this encounter Progress Notes Bubba Maxwell MD - 10/14/2018 2:00 PM PDTFormatting of this note might be differe nt from the original. PATIENT NAME: Etelvina Benitez : 1950: AGE: 67 y.o. REFERRED BY: Malina Soler MD PRIMARY CARE: JACK Faustin Dr. CARDIOLOGY OFFICE VISIT Date of Service: 10/14/18 HISTORY OF PRESENT ILLNESS: Etelvina Benitez is a 67 y.o. female with a history of established carotid artery disease, multivessel CAD, poorly controlled diabetes, hyperlipidemia, severe mitral insufficiency, a nd tobacco use here for a follow-up visit. She presents with her gykhkjwh-dy-lzk Shilpa. Since our last visit, she underwent transesophageal echocardiography which confirmed severe MR. thereafter he was referred to [facility] in [place], where she underwent m itral valve replacement with a tissue valve, given that repair was not feasible, along with CABG x1, and SVG to the RCA, from which she recovered rather slowly. She suffered postopera tive confusion and encephalopathy which slowly resolved. She also experienced acute renal i nsufficiency which has mostly resolved since then. It was reported that the patient receive d PRBC transfusion for postoperative anemia. She was also given a 5-day course of ciproflox acin. She states that she has quit smoking since discharge. She also has implemented signi ficant dietary improvements. She has not indulged in some physical therapy but has not yet enrolled in a cardiac rehabilitation program. She denies any constitutional symptoms such as fevers or chills but has noticed a swollen, reddened area at the site of her endoscopic vein harvest on the right leg. Pertinent historical clinical information: She was initially [...] LHC; Surgeon: Bubba Maxwell MD; Location: [facility] CV LAB CARDIAC CATHERIZATION N/A 11/13/2017 Procedure: CV LHC; Surgeon: Bubba Maxwell MD; Location: [facility] CV LAB CORONARY ARTERY BYPASS GRAFT 09/03/2018 Boby Bernard MD HYSTERECTOMY 1976 [place] LYMPH NODE BIOPSY 1972 [place] MITRAL VALVE REPLACEMENT 09/03/2018 NASAL SINUS SURGERY 1988 OTHER SURGICAL HISTORY Left 07/28/2014 Procedure: LEFT HEART CATH; Surgeon: Bubba Maxwell MD; Location: [facility] CARDIO VASC ULAR LAB ROTATOR CUFF REPAIR Right shoulder TONSILLECTOMY 1988 UVULOPALATOPHARYGOPLASTY 1988 Family History Problem Relation Age [...] Last attempt to quit: 09/03/2018 Years since quittin.1 Smokeless tobacco: Never Used Substance and Sexual [...] SOLOSTAR) 300 units/mL concentrated injection (pen) Inject 16 Units under the skin nightly. levothyroxine (SYNTHROID) [...] by mouth every morning (before breakfast ). VICTOZA 18 MG/3ML injection Inject 1.2 mg under the skin Daily. 2 No current facility-administered medications for this visit. ALLERGIES Allergies Allergen Reactions Oxycodone Itching Oxycontin intolarant: Oxycodone tolerates. Oxycontin intolarant: Oxycodone tolerates. Oxycontin intolarant: Oxycodone tolerates. Oxycontin intolarant: Oxycodone tolerates. ROS I have reviewed the Review of Systems form dated today and scanned into the media tab. OBJECTIVE: PHYSICAL EXAM BP (!) 86/50 | Pulse 84 | Resp 16 | Ht 1.651 m (5' 5") | Wt 49.8 kg (109 lb 12.6 oz) | BMI 18.27 kg/m Physical Exam Constitutional: She appears well-developed [...] BUN 13 07/28/2014 EGFREX 78 06/21/2017 CREEX 0.9 09/26/2018 HEMATOLOGY Lab Results Component Value Date HGBEX 9.7 09/26/2018 BNP 365 (June 2017) A1C 06/21/2017: 9.8 [...] 09/03/[address] Boby Terry - [facility] for saphenous vein graft to RCA. Will mitral valve repair not feasible due to heavily ca lcific mitral leaflets. ASSESSMENT: 1. CAD - patient was shown to have three-vessel CAD as detailed above on her angiogram in 2014 and this appears to be relatively unchanged on her recent angiogram. Preoperatively, s he appears to have had a single vein graft to the RCA. Focus will remain on continued medic al therapy and risk factor reduction. There is suggestion of superficial infection at the site of patient's EVH on her right lowe r extremity. She may benefit from therapy with a course of antibiotics with cephalexin 500 mg BID. 2. Hyperlipidemia - her target LDL should be less than 70 mg/dL given her established cor onary and carotid disease. For now we will continue with atorvastatin 80 mg daily. She wou ld benefit from a recheck of her fasting lipid profile periodically. 3. Diabetes mellitus - patient has demonstrated very poor diabetic control and she may charito efit from consideration of consultation with an mutuel department manager if feasible. Patient also w ould benefit from further dietary education - she describes poor dietary choices including frequent indulgence and ice cream and white bread. We had previously discussed concept of g lycemic index which would benefit from future reinforcement. 3. Tobacco cessation - patient states that she is no longer smoking since discharge from [facility] and I have congratulated her on this. This would benefit from future reinforcem ent. 4. Carotid artery disease/PAD- patient will benefit from future noninvasive evaluation giv en her history of previous endarterectomy. She may also benefit from further assessment for lower extremity PAD, ideally with a contrast study once she has fully recovered from her re nal insufficiency. 5. Pulmonary - given patient's history of heavy tobacco use, she may benefit from consider ation of pulmonary function testing and possible pulmonary consultation re: potential of und erlying COPD. She was previously seen by pulmonary consultation. 6. Mitral regurgitation - this was found to be severe on transesophageal echocardiography, and patient underwent mitral valve replacement with a 26 mm tissue valve as detailed above. She would benefit from repeat echocardiography to reassess her valvular function as well a s recovery of her LV systolic function. PLAN: 1. Echocardiogram. 2. Consider CT angiography at a later date once patient is fully recovered from her recent episode of acute renal insufficiency. 3. Continued tobacco cessation. 4. Course of cephalexin given evidence of likely superficial infection at the site of EVH. Otherwise continue current medications for now. Continue to hold losartan. 5. Improved diabetic control. Recommend endocrinology consultation. 6. Continued consultation with pulmonology regarding likely underlying COPD. 7. Follow-up visit in 2-3 months. 8. Recheck fasting lipid profile, HbA1c, chemistry panel, and CBC prior to next visit. 9. Cardiac rehabilitation program consultation. 10. Follow-up visit within 3 months. I spent 40 minutes face to face with the patient, with over 50% spent in counseling and/or coordination of care regarding patient's multiple cardiovascular diagnoses and suggestions f or future work-up and management.. Portions of this report were transcribed using voice recognition software. Every effort wa s made to ensure accuracy; however, inadvertent computerized service correspondent errors may be pre sent. Electronically signed by: Rafael Maxwell MD PhD [facility] 10/14/2018 documented in t his encounter Plan of Treatment + +------+--------+ + + | Name | Type | Priori | Associated Diagnoses | Order Schedule | | | | ty | | | + +------+--------+ + + | Hemoglobin A1C | Lab | Routin | Heart valve | 1 Occurrences | | | | e | replaced Mitral | starting 10/14/2018 | | | | | valve insufficiency, | until 10/14/2019 | | | | | unspecified | | | | | | etiology Essential | | | | | | hypertension Poor | | | | | | circulation Mixed | | | | | | hyperlipidemia SOB | | | | | | (shortness of | | | | | | breath) Type 2 | | | | | | diabetes mellitus | | | | | | without | | | | | | complication, | | | | | | unspecified whether | | | | | | longterm insulin | | | | | | use (HCC) | | + +------+--------+ + + | Lipid Panel | Lab | Routin | Heart valve | Expected: | | | | e | replaced Mitral | 10/14/2018, Expires: | | | | | valve insufficiency, | 10/14/2019 | | | | | unspecified | | | | | | etiology Essential | | | | | | hypertension Poor | | | | | | circulation Mixed | | | | | | hyperlipidemia SOB | | | | | | (shortness of | | | | | | breath) | | + +------+--------+ + + | Basic Metabolic | Lab | Routin | Heart valve | Expected: | | Panel | | e | replaced Mitral | 10/14/2018, Expires: | | | | | valve insufficiency, | 10/14/2019 | | | | | unspecified | | | | | | etiology Essential | | | | | | hypertension Poor | | | | | | circulation Mixed | | | | | | hyperlipidemia SOB | | | | | | (shortness of | | | | | | breath) | | + +------+--------+ + + | CBC with | Lab | Routin | Heart valve | Expected: | | Differential | | e | replaced Mitral | 10/14/2018, Expires: | | | | | valve insufficiency, | 10/14/2019 | | | | | unspecified | | | | | | etiology Essential | | | | | | hypertension Poor | | | | | | circulation Mixed | | | | | | hyperlipidemia SOB | | | | | | (shortness of | | | | | | breath) | | + +------+--------+ + + + + +--------+ + + | Name | Type | Priori | Associated Diagnoses | Order Schedule | | | | ty | | | + + +--------+ + + | Referral to Cardiac | Outpatient | Routin | Heart valve | 1 Occurrences | | Rehab | Referral | e | replaced Mitral | starting 10/14/2018 | | | | | valve insufficiency, | until 10/14/2019 | | | | | unspecified | | | | | | etiology Essential | | | | | | hypertension Poor | | | | | | circulation Mixed | | | | | | hyperlipidemia SOB | | | | | | (shortness of | | | | | | breath) | | + + +--------+ + + documented as of this encounter Procedures + +--------+ + + + | Procedure Name | Priori | Date/Time | Associated Diagnosis | Comments | | | ty | | | | + +--------+ + + + | ECG 12 LEAD | Routin | 10/14/2018 | Heart valve | Results for this | | | e | 2:18 PM | replaced Essential | procedure are in the | | | | PDT | hypertension | results section. 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 Procedure Type | | | of Study [...] | | | Electronically signed by YIMI MAXWELL MD (Interpreting physician) on | | | [...] + | John, Rad Results In - 01/16/2019 5:02 PM PDT Transthoracic Echocardiography Report | | (TTE) Demographics Patient Name AUSTIN WIGGINS Room Number Patient Number | | [id number] Date of Study 01/15/2019 Visit Number [id number] | | Referring Physician YIMI MAXWELL MD Property Underwriter | | CONOR VILLASEÑOR Number Date of 1950 Interpreting | | YIMI MAXWELL MD Physician Age 68 year(s) | | [...] | | | + +---------+ + + ECG 12 lead (10/14/2018 2:18 PM PDT) + + + + + + | Component | Value | Ref Range | Performed | Pathologist | | | | | At | Signature | + + + + + + | VENTRICULAR | 85 | BPM | [facility] | | | RATE EKG | | | | | + + + + + + | ATRIAL RATE | 85 | BPM | [facility] | | + + + + + + | P-R | 190 | ms | [facility] | | | INTERVAL | | | | | + + + + + + | QRS | 84 | ms | [facility] | | | DURATION | | | | | + + + + + + | Q-T | 384 | ms | [facility] | | | INTERVAL | | | | | + + + + + + | Q-T | 456 | ms | [facility] | | | INTERVAL | | | | | | (CORRECTED) | | | | | + + + + + + | P WAVE AXIS | -18 | degrees | [facility] | | + + + + + + | QRS AXIS | 41 | degrees | [facility] | | + + + + + + | T AXIS | 99 | degrees | [facility] | | + + + + + + | INTERPRETAT | Normal sinus | | [facility] | | | ION TEXT | rhythmNonspecific T wave | | | | | | abnormalityAbnormal | | | | | | ECGWhen compared with | | | | | | ECG of 25-DEC-2017 | | | | | | 06:50,Nonspecific T wave | | | | | | abnormality now evident | | | | | | in Inferior leadsT wave | | | | | | inversion now evident | | | | | | in Lateral | | | | | | leadsConfirmed by CECI | | | | | | YIMI OBRIEN ([id number]) on | | | | | | 10/14/2018 2:50:09 PM | | | | + + [...] | + + | Heart valve replaced - Primary Heart valve replaced by other means | + + | Mitral valve insufficiency, unspecified etiology | + + | Essential hypertension Unspecified essential hypertension | + + | Functional murmur Undiagnosed cardiac murmurs | + + | Stenosis of carotid artery, unspecified laterality | + + | Abnormal heart rate | + + | Poor circulation Unspecified circulatory system disorder | + + | Mixed hyperlipidemia | + + | SOB (shortness of breath) Shortness of breath | + + | Type 2 diabetes mellitus without complication, unspecified whether longterm insulin | | use (HCC) | + + documented in this encounter
--- OUTSIDE RECORDS SUMMARY | ~2020-01-06 | XMS | Encounter Summary ---
Demographics + + + | Address | [address] | | | [place] [address] | + + + | Home Phone [...] + | Author | [facility] | | | and [place] | + + + | Organization | [facility] | | | and [place] [...] Team Providers + +------+ + | Care Industrial Hire Sales Assistant Name | Role | Phone | [...] + + | 12/25/ | Surgery | [facility] | Bubba Maxwell | CV ECHO/[facility] | | 2017 | | MED CTR CV INTRA OP | MD Yimi [address] | | | | | [address] | [address] | | | | | [place] | [place] [address] | | | | | [address] | [phone] | | | | | [phone] | | | +--------+---------+ + + + [...] 0.25 mg by | | 0 | 05/1620 | | | 0.25 mg tablet | [...] + + documented as of this encounter H&P Notes Bubba Maxwell MD - 12/25/2017 8:27 AM PDTSURGICAL INTERIM HISTORY & PHYSICAL UPDA TE Pt. Name/Age/: Etelvina Benitez 67 y.o. 1950 Date of admission: 12/25/2017 The current H&P was reviewed. The patient was reexamined. Re-evaluation of the patient co nfirms the necessity for the scheduled procedure. No change has occurred in the patient s condition since the H&P was completed less than 30 days ago. VERIFICATION OF CONSENT (PARQ) The patient was counseled regarding the procedure, its indications, risks, potential compli cations and alternatives. Any questions were answered. Consent was obtained. Electronically signed by: Bubba Maxwell MD, 12/25/2017 8:27 [facility] Bubba Tobias MD - 11/27/2017 1:00 PM PDTFormatting of this note might be different from the orig inal. PATIENT NAME: Etelvina Benitez : 1950: AGE: [...] returned for follow-up visit and moved to [place], having only ret urned recently. She ended up undergoing cervical fusion surgery in [place] and did not brown ve any further [...] LHC; Surgeon: Bubba Maxwell MD; Location: [facility] CV LAB CARDIAC CATHERIZATION N/A 11/13/2017 Procedure: CV LHC; Surgeon: Bubba Maxwell MD; Location: [facility] CV LAB HYSTERECTOMY 1975 [place] LYMPH NODE BIOPSY 1971 [place] NASAL SINUS SURGERY 1987 OTHER SURGICAL HISTORY Left 07/28/2014 Procedure: LEFT HEART CATH; Surgeon: Bubba Maxwell MD; Location: [facility] CARDIO VASC ULAR LAB ROTATOR CUFF [...] reviewed by me with the patient today: [facility] 11/13/2017, interpreted and reviewed by me [...] as detailed above on her angiogram in 2015 and this appears to be relatively unchanged [...] f rom consideration of consultation with an paint grinder if feasible. Patient also would b enefit [...] made to ensure accuracy; however, inadvertent computerized cathode ray tube salvage processor errors may be pre sent. Electronically signed by: Rafael Maxwell MD PhD [facility] 11/27/2017 documented in t [...] IMAGIN G | | Transesophageal Echocardiography Report ([facility]) Demographics Patient | | | Name AUSTIN GR Room Number [facility] | | | LAB ROSALIE | | | SHAE Patient Number [id number] Date of Study | | | 12/25/2017 Visit Number [id number] Accession | | | [id number] Interpreting YIMI MAXWELL MD Number | | | Physician Date of 1950 | | | Referring YIMI MAXWELL MD | | | Physician Age 67 | | | year(s) Park Aide LIZETH SUMNER [facility] Gender | | | Female Nurse | | | Stress Obstetrician Gynecologist Procedure Type of Study [facility] | | [...] | | Electronically signed by YIMI MAXWELL MD(Interpreting physician) on | | | 12/25/2017 [...] Report | | ([facility]) Demographics Patient Name [facility] Room Number [facility] | | [facility] Patient Number | | [id number] Date of Study 12/25/2017 Visit Number [id number] Accession | | [id number] Interpreting YIMI MAXWELL MD Number | | Physician Date of 1950 Referring YIMI MAXWELL MD | | Physician Age 67 year(s) Park Aide LIZETH | | BIANCA SUMNER Gender Female [...] | | Electronically signed by YIMI MAXWELL MD(Interpreting physician) on | | 12/25/2017 07:12 [...] | + + | Addendum by Bubba Maxwell MD on 12/26/2017 5:48 PM This report [...] (H) | 70 - 109 mg/dL | [facility] | | | POC | | | [...] + | [facility] | [address] | [place] | [phone] | | [facility] | | [address] | | | - LABORATORY | | [...] | | | | FERNANDO EASTMAN MD ([id number]) | | | | | | on [...] 7:08 | | | | | Starting Sun12/25/17 at 0708, | | AM PDT | | | | | Intra-op | | | | | | + +--------+ +---------+------+------+ +---+---+ | | | +---+---+ + +-------+ +--------+---+---+ | fentaNYL (PF) injection ONCE | Given | 12/26/19 | 50 mcg | | | | PRN, Starting Sun12/25/17 at 0714, | | 18 7:14 | [...]
--- OUTSIDE RECORDS SUMMARY | ~2020-01-06 | XMS | Encounter Summary ---
Demographics + + + | Address | [address] | | | [place] [address] | + + + | Home Phone | | + + + | Preferred Language | Unknown | + + + | Marital Status | Single | + + + | Restorationist Affiliation | Unknown | + + + | Race | White | + + + | Ethnic Group | Other Race | + + + Author + + + | Author | [facility] | + + + | Organization | [facility] | + + + | Address | Unknown | + + + | Phone | Unavailable | + + + Support + + +---------+ + | Name | Relationship | Address | Phone | + + +---------+ + | Karen Unknown | ECON | Unknown | | + + +---------+ + Care Team Providers + +------+ + | Care Compliance Analyst Name | Role | Phone | + +------+ + | Margie Gonzalez PA-C | PCP | | + +------+ + Reason for Visit + +--------+ + | Reason | Onset | Comments | | | Date | | + +--------+ + | Lab Results | 09/24/ | | | | 2019 | | + +--------+ + Encounter Details +--------+ + + + + | Date | Type | Department | Care Team | Description | +--------+ + + + + | 09/24/ | Documentati | General Internal | Rosa Orozco, | Lab Results | | 2019 | on | [facility] | [place] [address] | | | | | [address] | [address] | | | | | [place], | [place], [place] | | | | | [place] [address] | [address] | | | | | [phone] | [phone] | | | | | | | [...] this encounter Miscellaneous Notes Telephone Encounter - Rosa Orozco PA - 09/24/2018 9:57 AM PDTOutside lab results: Na 141 K 4.7 Chl 103 Co2 33 Glu 83 BUN 21 Creat 0.83 ALT 51 AST 41 ALP 157 Tbili 0.6 Dbili 0.17 Ind bili 0.4 Alb 3.3 Ammonia 35 Ca 8.7 Phos 4.2 WBC 6.8 RBC 3.26 Hgb 9.3 Hct 29.1 MCV 89.5 PLT 187 Differential notable for: Lymph % 10.9 (L) absolute is WNL Slight Anisocytosis (marcocytes and microcytes) documented in this en counter Plan of Treatment Not on filedocumented as of this encounter Visit Diagnoses Not on filedocumented in this encounter"
--- OUTSIDE RECORDS SUMMARY | ~2020-01-06 | XMS | Encounter Summary ---
Demographics + + + | Address | [address] | | | [place] [address] | + + + | Home Phone | | + + + | Preferred Language | Unknown | + + + | Marital Status | Single | + + + | Baptist Affiliation | Unknown | + + + | Race | White | + + + | Ethnic Group | Other Race | + + + Author + + + | Author | [facility] | + + + | Organization | [facility] | + + + | Address | Unknown | + + + | Phone | Unavailable | + + + Support + + +---------+ + | Name | Relationship | Address | Phone | + + +---------+ + | Karen Unknown | ECON | Unknown | | + + +---------+ + Care Team Providers + +------+ + | Care Grant Officer Name | Role | Phone | + +------+ + | Margie Gonzalez PA-C | PCP | | + +------+ + Encounter Details +--------+ + + + + | Date | Type | Department | Care Team | Description | +--------+ + + + + | 09/19/ | Documentati | General Internal | Bharti Malik, | | | 2019 | on [facility] | [address] | | | | | [address] | [address] | | | | | [place], | [place], [place] | | | | | [place] [address] | [address] | | | | | [phone] | [phone] | | | | | | | [...] Telephone Encounter - Bharti Malik MD - 09/19/2018 5:20 PM PDTLab results from yesterd ay were faxed for Etelvina though appears they were also done at [facility] today through ?PCP 's office Na 141 K 4.5 Cl 101 CO2 35 Gluc 223 BUN 18 Creat 0.89 Calc 8.7 Albumin 3.1 AST 43 (36 today) ALT 61 (53 today, down from 117 on 09/15) Alk Phos 183 (141 today, slightly up from 150 on 09/15) TBili 0.7 Ammonia 65 (was 31 today at [facility]) WBC 8.5 Hgb 8.9 HCT 27.2 (stable) PLT 181 Appears that either [facility] lab values are on a significantly different scale, or patient has had 24 hour improvement in labs such as LFTs and Ammonia without intervention? Unclear why duplicate set was done through outpatient providers. Labs overall with improved trend es pecially based on today's [facility] labs. No additional labs ordered at this time. documented in this en counter Plan of Treatment Not on filedocumented as of this encounter Visit Diagnoses Not on filedocumented in this encounter"
--- OUTSIDE RECORDS SUMMARY | ~2020-01-06 | XMS | Encounter Summary ---
Demographics + + + | Address | [address] | | | [place] [address] | + + + | Home Phone | | + + + | Preferred Language | Unknown | + + + | Marital Status | Single | + + + | Yazidism Affiliation | 1013 | + + + | Race | White | + + + | Ethnic Group | or | + + + Author + + + | Author | [facility] | | | and [place] | + + + | Organization | [facility] | | | and [place] | [...] Team Providers + +------+ + | Care Product Consultant Name | Role | Phone | + [...] Description | +--------+--------+ + + + | 04/24/ | Refill | [facility] [place] | Gael Adam, | Medication Refill | | 2014 | | PHYSIATRY [address] | MD [address] | | | | | [address] | [place] | | | | | [place], [place] | [address] | | | | | [address] | | | | | | [phone] | | | +--------+--------+ + + + [...]
--- OUTSIDE RECORDS SUMMARY | ~2020-01-06 | XMS | Encounter Summary ---
Demographics + + + | Address | [address] | | | [place] [address] | + + + | Home Phone | | + + + | Preferred Language | Unknown | + + + | Marital Status | Single | + + + | Pentecostalism Affiliation | 1013 | + + + | Race | White | + + + | Ethnic Group | or | + + + Author + + + | Author | [facility] | | | and [place] | + + + | Organization | [facility] | | | and [...] Team Providers + +------+ + | Care Teacher Ballet Name | Role | Phone | + +------+ + | Margie Gonzalez | PCP | | + +------+ + Encounter Details +--------+---------+ + + + | Date | Type | Department | Care Team | Description | +--------+---------+ + + + | 09/04/ | Surgery | [facility] | Kat Maxwellehr | CV LHC | | 2018 | | MED CTR CV INTRA OP | MD Yimi [address] | | | | | [address] | [address] [place] | | | | | [place], [place] | [place] [address] | | | | | [address] | [phone] | | | | | [phone] | | | +--------+---------+ + + + [...]
--- OUTSIDE RECORDS SUMMARY | ~2020-01-06 | XMS | Encounter Summary ---
Demographics + + + | Address | [address] | | | [place] [address] | + + + | Home Phone | | + + + | Preferred Language | Unknown | + + + | Marital Status | Single | + + + | Shinto Affiliation | 1013 | + + + | Race | White | + + + | Ethnic Group | or | + + + Author + + + | Author | [facility] | | | and [place] | + + + | Organization | [facility] | | | and [place] [...] Team Providers + +------+ + | Care Sour Bleaching Pleater Name | Role | Phone | + +------+ + | Matt Kinney MD | PCP | | + +------+ + Reason for Visit + +--------+ + | Reason | Onset | Comments | | | Date | | + +--------+ + | Appointment | 07/15/ | | | | 2014 | | + +--------+ + Encounter Details +--------+ + + + + | Date | Type | Department | Care Team | Description | +--------+ + + + + | 07/15/ | Telephone | [facility] | Bubba Maxwell | Appointment | | 2014 | | [facility] [address] | MD Yimi [address] | | | | | [place], | [address] [place] | | | | | [place] [address] | [place] [address] | | | | | [phone] | [phone] | | | | | | | [...] this encounter Miscellaneous Notes Telephone Encounter - Raina Crow Last - 07/15/2014 4:01 PM PDTPatient has an appointment tomorrow, 07-16-14, at 3:[address] Maxwell. Called and left VM message for patient, attempt ing to reschedule appointment to 2:00 instead of 3:30. Requested patient to return our call . documented in this encou nter Plan of Treatment Not on filedocumented as of this encounter Visit Diagnoses Not on filedocumented in this encounter"
--- OUTSIDE RECORDS SUMMARY | ~2020-01-06 | XMS | Encounter Summary ---
Demographics + + + | Address | [address] | | | [place] [address] | + + + | Home Phone [...] Author | [facility] | | | and [place] | + + + | Organization | [facility] | | | and [place] | [...] Team Providers + +------+ + | Care Bicycle Repairman Name | Role | Phone | + [...] rate | | 2013 | | NEUROLOGY ESME | MD Macie Need updated | (Primary Dx); Poor | | | | [address], | address | circulation; | | | | [address] [place] | | Hyperlipidemia; | | | | [place] [address] | | Neuropathy; Thyroid | | | | [phone] | | disease; Depression; | | | [...] reflux | + + | Diabetes mellitus ([facility]) Type II or unspecified type diabetes mellitus without mention | | of complication, not stated as uncontrolled | + + | Migraine Migraine, unspecified, without mention of intractable migraine without | | mention of status migrainosus | + + | Seizure ([facility]) Other convulsions | + + | DDD (degenerative disc disease), cervical Degeneration of cervical intervertebral | | disc | + + documented in this encounter"
--- OUTSIDE RECORDS SUMMARY | ~2020-01-06 | XMS | Encounter Summary ---
Demographics + + + | Address | [address] | | | [place] [address] | + + + | Home Phone [...] | Organization | [facility] | | | and [place] [...] Team Providers + +------+ + | Care Associate Buyer Name | Role | Phone | + [...] + | 11/13/ | Surgery | [facility] | Bubba Maxwell | CV LHC | | 2017 | | MED CTR CV INTRA OP | MD Y[address] | | | | | [address] | [address] [place] | | | | | [place] | [place] [address] | | | | | [address] | [phone] | | | | | [phone] | | | +--------+---------+ + + + [...] + + + | Blood Pressure | 149/69 | 11/13/2017 10:00 AM | | | | | PDT | | + + + + + | Pulse | 74 | 11/13/2017 10:00 AM | | | | | PDT | | + + + + + | Temperature | 36.8 C (98.2 F) | 11/13/2017 8:23 AM | | | | | PDT | | + + + + + | Respiratory Rate | 16 | 11/13/2017 10:00 AM | | | | | PDT | | + + + + + | Oxygen Saturation | 100% | 11/13/2017 10:00 AM | | | | | [...] You can't be awakened Date Last Reviewed: 02/08/[id number] [employer]. [address] [place] [address], [place] [address]. All righ ts reserved. This information is [...] encounter H&P Notes Bubba Maxwell MD - 11/13/2017 8:24 AM PDTSURGICAL INTERIM HISTORY & PHYSICAL UPDA TE Pt. Name/Age/: Etelvina Benitez 66 y.o. 1950 Date of admission: 11/13/2017 The current H&P was reviewed. The patient [...] obtained. Electronically signed by: Bubba Maxwell MD, 11/13/2017 8:25 [facility] Bubba Tobias MD - 10/30/2017 3:30 PM PDTFormatting of this note might be different from the orig inal. PATIENT NAME: Etelvina Benitez : 1950: AGE: 66 y.o. REFERRED BY: No additional provider found PRIMARY CARE: JACK Faustin Dr. CARDIOLOGY OFFICE VISIT Date of Service: 10/30/17 HISTORY OF PRESENT ILLNESS: Etelvina Benitez is a 66 y.o. female with a history of established carotid artery disease, multivessel CAD, poorly controlled diabetes, hyperlipidemia, and ongoing tobacco use here f or a follow-up visit. She was previously scheduled to undergo left heart catheterization an d coronary angiography. This was canceled on 2 occasions because of patient experiencing a bout of shingles which persisted. This has since resolved. She was recently seen in [facility] consultation by pulmonology. Unfortunately she continues to smoke. Pertinent historical clinical information: She was initially [...] CV LHC; Surgeon: Bubba Maxwell MD; Location: [facility] CV LAB HYSTERECTOMY 1975 [place] LYMPH NODE BIOPSY 1971 [place] NASAL SINUS SURGERY 1987 OTHER SURGICAL HISTORY Left 07/28/2014 Procedure: LEFT HEART CATH; Surgeon: Bubba Maxwell MD; Location: [facility] CARDIO VASC ULAR LAB ROTATOR CUFF REPAIR Right shoulder TONSILLECTOMY 1987 UVULOPALATOPHARYGOPLASTY 1988 Family History Problem Relation Age of Onset Mental illness Mother Heart disease Father Diabetes Sister Family Status Relation Status Mother Father heart disease Sister Alive DM1 Sister (Not Specified) Social History Social History Marital status: Single [...] the media tab. OBJECTIVE: PHYSICAL EXAM BP 140/70 | Pulse 80 | Resp 16 | Ht 1.651 m (5' 5") | Wt 57.1 kg (125 lb 14.1 oz) | BM I 20.95 kg/m Physical Exam Constitutional: She appears well-developed and well-nourished. No distress. Cardiovascular: Normal rate, regular rhythm, S1 normal, S2 normal, normal heart sounds, int act distal pulses and normal pulses. Pulses: Carotid pulses are 2+ on [...] follow-up to discuss options for further management. Recently she experienced symptoms of e xertional discomfort, dyspnea and chest pressure. Given long-standing history of uncontroll ed diabetes and ongoing tobacco use, patient may very well be experiencing more severe CAD, and her recent echocardiogram suggests LV systolic dysfunction, which was a new finding. Sh e would benefit from definitive coronary evaluation including left heart catheterization and coronary angiography. Patient understands the indications for the procedure as well as rel evant risks and benefits and agrees to proceed. [...] f rom consideration of consultation with an supervisor operations if feasible. Patient also would b enefit [...] made to ensure accuracy; however, inadvertent computerized self sealing fuel tank repairer errors may be pre sent. Electronically signed by: Rafael Maxwell MD PhD FACC 10/30/2017 documented in t his encounter Procedure Notes Bubba Maxwell MD - 11/13/2017 1:08 PM PDTAssociated Order(s): CV CARDIAC PROCEDUR E CARDIAC CATHETERIZATION and CORONARY ANGIOGRAPHY PATIENT NAME/: Etelvina Benitez, (1950) DATE OF PROCEDURE: 11/13/2017 ENVIRONMENTAL SERVICES ATTENDANT: Bubba Maxwell MD, PhD, FACC PROCEDURES PERFORMED: Coronary Angiography Left Heart Catheterization Left Ventriculography Indications: Coronary artery disease DESCRIPTION OF PROCEDURE: Informed consent was obtained from the patient, and a time-out was performed to verify the patient's identification and planned procedure. The patient's right groin was then prepped and draped in the usual sterile fashion, and anesthetized with 1% lidocaine. For arterial a ccess modified Seldinger technique was used to place a 6 Fr. sheath in the right femoral art anshul.. Right heart catheterization was not performed on this patient. After crossing the ao rtic valve, left ventriculography was performed in the SUAREZ projection. Selective coronary a ngiogram was then performed in several sagittal and oblique projections. JL-4, 3DRC and pigt ail diagnostic catheters were used for this procedure. The patient received a total of 1 mg of Versed and 75 mcg of fentanyl intravenously for conscious sedation during the procedure. A total of 151 mL Omnipaque 350 contrast was utilized. The procedure had no immediate com plications. At the conclusion of the procedure, the sheath was removed and hemostasis obtained with an Angio Seal. Distal pulses were present and unchanged. FINDINGS: Hemodynamics: Ao - 145/62 mm Hg with a mean of 90 to mm Hg LV - 155/8 mm Hg LVEDP - 20 mm Hg Left ventriculography: The left ventricle is of normal size with mild posterior basal hypo kinesis and overall preserved systolic function. LVEF is estimated at 60%. There is severe mitral valve regurgitation noted. Left main artery: The left main artery is a medium caliber vessel that bifurcates into the left anterior descending artery and left circumflex artery. Left main artery has minimal l uminal irregularities, but no significant obstructive atherosclerotic disease is seen. Left anterior descending artery: The left anterior descending artery is a small caliber ve ssel that wraps around the apex and gives rise to 2 diagonal branches. The vessel has moder ate diffuse plaquing with no flow-limiting lesions noted. It gives rise to 2 diagonal branc hes. Left circumflex artery: The left circumflex artery is a medium caliber vessel that is non dominant. The vessel has moderate to severe diffuse disease with a focal 90% lesion in its midportion. It gives rise to 2 OM branches. Right coronary artery: The right coronary artery is a small caliber vessel that is dominan t. The vessel has severe disease and is occluded proximally with moderate degree of left t o right collateral flow. CONCLUSIONS: 1. Proximally occluded dominant RCA with mild to moderate diffuse disease of the LAD and a significant stenosis in the midportion of the diffusely narrowed LCx. 2. There is a right dominant circulation. 3. Normal LV systolic function with mild posterobasal hypokinesis and severe MR. 4. Systemic blood pressure is mildly elevated. 5. There was successful Angio Seal placement to the puncture site in the right femoral otis ry. 6. Patient will be seen in further consultation to discuss possible cardiac surgery for jesse ral valve disease and coronary disease. Moderate sedation start time: 08:40. Moderate sedation stop time: 09:10. IBubba MD, PhD, FACC reviewed the patient's pre-sedation assessment and vital signs, super vised and directed the Moderate Sedation from administration to patient stabilization for re covery. TO PRIMARY CARE PROVIDER: JACK Faustin documented in t his encounter Plan of [...] 109 | 70 - 109 mg/dL | [facility] | | | POC | | | [facility] | | [...] [address] | [place] | [phone] | | [facility] | | [address] | | | - LABORATORY | | [...] | OF PROCEDURE: 11/13/2017 | | | ENVIRONMENTAL SERVICES ATTENDANT: Bubba Maxwell MD, PhD, [facility] PROCEDURES | | | PERFORMED:Coronary AngiographyLeft Heart [...] + + | Performing | Address | City/State[facility] | Phone Number | | Organization [...] | | POC | | | [facility] | | [...] ST. | [address] | [place] | [phone] | | [facility] | | [address] | | | - LABORATORY | | [...] PRN, Pain, Fever, Starting | | | 11/13/17 at 0928, | | | Post-op/Phase II | | + +---+ | | | + +---+ + +-------+ +--------+---+---+ | fentaNYL (PF) injection ONCE | Given | 11/14/19 | 25 mcg | | | | PRN, Starting 11/13/17 at | | 18 9:03 | | [...] | | Surgical | | PRN, Starting Sun11/13/17 at | | 18 8:40 | | [...] | | | injection ONCE PRN, Starting Sun | | 18 8:38 | | | | | 11/13/17 at 0838, Intra-op | | AM PDT | | | | + +-------+ +------+---+---+ + +---+ | | | + +---+ | nitroglycerin (NITROSTAT) SL | | | tablet 0.4 mg 0.4 mg, | | | Sublingual, EVERY 5 MIN PRN, | | | Chest pain, Starting 7/24/18 | | | at 0928, May give [...]
--- OUTSIDE RECORDS SUMMARY | ~2020-01-06 | XMS | Encounter Summary ---
Demographics + + + | Address | [address] | | | [place] [address] | + + + | Home Phone | | + + + | Preferred Language | Unknown | + + + | Marital Status | Single | + + + | Spiritism Affiliation | 1013 | + + + | Race | White | + + + | Ethnic Group | or | + + + Author + + + | Author | [facility] | | | and [place] | + + + | Organization | [facility] | | | and [...] Team Providers + +------+ + | Care Electronics Processing Supervisor Name | Role | Phone | + +------+ + | Matt Kinney MD | PCP | | + +------+ + Encounter Details +--------+ + + + + | Date | Type | Department | Care Team | Description | +--------+ + + + + | 08/07/ | Hospital | [facility] | Gael Adam, | Lumbalgia; Lumbar | | 2013 | Encounter | MED CTR XRAY [address] | MD [address] | degenerative disc | | | | [place] | [place], [place] | disease | | | | [place] [address] | [address] | | | | | [phone] | | | +--------+ + + + [...] by mouth | | 0 | | 04/23/201 | | (VITAMIN C) 500 mg | [...] + +--------+ + + + | XR LUMBAR SPINE 4 + | Routin | 08/07/2013 | Lumbalgia Lumbar | Results for this | | VW | e | 1:02 PM | degenerative disc | procedure are in the | | | | PDT | disease | results section. | + +--------+ + + + documented in this encounter Results XR Lumbar Spine 4 + Vw (08/07/2013 1:02 PM PDT) + + | Specimen | + + | | + + + + + | Narrative | Performed At | + + + | EXAM: XR LUMBAR SPINE 4 + VW dated 08/07/2013 12:34 PM | [facility] | | HISTORY:Chronic low back pain with radicular symptoms COMPARISON: | LAB | | None. FINDINGS: 4 views of the lumbar spine. Levoconvex | | | scoliosis. 5 nonrib-bearing lumbar-type vertebral bodies. | | | Retrolisthesis of L3 on L4 and L4 on L5. Severe endplate | | | degenerative changes at L4-L5 and to lesser extent L5-S1. No | | | compression deformities. No definite abnormal translation with | | | flexion and extension. Nonaneurysmal vascular calcifications are | | | present in the abdominal aorta. Mild degenerative changes are seen | | | in the sacroiliac joints. IMPRESSION - Levoconvex scoliosis | | | with associated spondylosis predominating at L4-L5 and L5-S1. | | | Dictated and Signed by: Guy Osei MD Electronically signed: | | | 08/07/2013 1:09 PM | | + + + + + | Procedure Note | + + | John, Rad Results In - 08/07/2013 1:12 PM PDT EXAM: XR LUMBAR SPINE 4 + VW dated | | 08/07/2013 12:34 PMHISTORY:Chronic low back pain with radicular symptomsCOMPARISON: | | None.FINDINGS: 4 views of the lumbar spine. Levoconvex scoliosis. 5 | | aqzocg-nizjbwjhxftej-pufy vertebral bodies. Retrolisthesis of L3 on L4 and L4 on L5. | | Severeendplate degenerative changes at L4-L5 and to lesser extent L5-S1. Nocompression | | deformities. No definite abnormal translation with flexion andextension. Nonaneurysmal | | vascular calcifications are present in the abdominalaorta. Mild degenerative changes | | are seen in the sacroiliac joints.IMPRESSION -Levoconvex scoliosis with associated | | spondylosis predominating at L4-L5 andL5-S1.Dictated and Signed by: Guy Osei MD | | Electronically signed: 08/07/2013 1:09 PM | |extension. Nonaneurysmal vascular calcifications are present in the abdominal | |aorta. Mild degenerative changes are seen in the sacroiliac joints. | | | |IMPRESSION - | | | |Levoconvex scoliosis with associated spondylosis predominating at L4-L5 and | |L5-S1. | | | |Dictated and Signed by: Guy Osei MD | | Electronically signed: 08/07/2013 1:09 PM | + + + +---------+ + + | Performing | Address | City/State/[facility] | Phone Number | | Organization | | | | + +---------+ + + | [facility] | | | [phone] | + +---------+ + + | [facility] | | | [phone] | + +---------+ + + documented in this encounter Visit Diagnoses + + | Diagnosis | + + | Lumbalgia Lumbago | + + | Lumbar degenerative disc disease Degeneration of lumbar or lumbosacral intervertebral | | disc | + + documented in this encounter"
--- OUTSIDE RECORDS SUMMARY | ~2020-01-06 | XMS | Encounter Summary ---
Demographics + + + | Address | [address] | | | [place] [address] | + + + | Home Phone | | + + + | Preferred Language | Unknown | + + + | Marital Status | Single | + + + | Temple Affiliation | 1013 | + + + | Race | White | + + + | Ethnic Group | or | + + + Author + + + | Author | [facility] | | | and [place] | + + + | Organization | [facility] | | | and [place] [...] Team Providers + +------+ + | Care Software Manager Name | Role | Phone | + +------+ + | Matt Kinney MD | PCP | | + +------+ + Reason for Visit +--------+--------+ + | Reason | Onset | Comments | | | Date | | +--------+--------+ + | Other | 06/04/ | | | | 2014 | | +--------+--------+ + Encounter Details +--------+ + + + + | Date | Type | Department | Care Team | Description | +--------+ + + + + | 06/04/ | Telephone | [facility] [place] | Gael Adam, | Other | | 2014 | | PHYSIATRY [address] | MD [address] | | | | | [address] | [place], [place] | | | | | [place], [place] | [address] | | | | | [address] | | | | | | [phone] | | | +--------+ + + + [...] this encounter Miscellaneous Notes Telephone Encounter - Mildred Colon RN - 06/04/2014 5:05 PM PSTNoted. Electronically s igned by Mildred Colon RN at 06/04/2014 5:05 PM PSTTelephone Encounter - Shantell Crowe - 06/04/2014 10:02 AM PSTPatient called to cancel her follow up appointment with Dr. Adam. She has a lot going on right now with other appointments but she did want to let Dr. Adam know that she is feeling okay right now. Looks like the last injections she had seemed to wo rk and is going to be scheduled for surgery with Dr. Knapp. Dominick adviseElectronically sign ed by Shantell Crowe at 06/04/2014 10:05 AM PSTdocumented in this encounter Plan of Treatment Not on filedocumented as of this encounter Visit Diagnoses Not on filedocumented in this encounter"
--- OUTSIDE RECORDS SUMMARY | ~2020-01-06 | XMS | Encounter Summary ---
Demographics + + + | Address | [address] | | | [place] [address] | + + + | Home Phone [...] + + + | Author | [facility] | | | and [place] | + + + | Organization | [facility] | | | and [place] [...] Team Providers + +------+ + | Care Buzzsaw Operator Helper Name | Role | Phone | + +------+ + | Matt Kinney MD | PCP | | + +------+ + Reason for Visit + +--------+ + | Reason | Onset | Comments | | | Date | | + +--------+ + | Medication | 09/29/ | | | Management | 2014 | | + +--------+ + Encounter Details +--------+ + + + + | Date | Type | Department | Care Team | Description | +--------+ + + + + | 09/29/ | Telephone | [facility] | Gael Adam, | Medication | | 2013 | | PH[address]SIATRY [address] | MD [address] | Management | | | | [address] | [place] | | | | | [place] | [address] | | | | | [address] | | | | | | [phone] | | | +--------+ + + + [...] documented as of this encounter Miscellaneous Notes Addendum Note - Michelle Frias RN - 09/29/2013 1:42 PM PDT Addended by: MICHELLE FRIAS on: 09/29/2013 13:42 Modules accepted: Orders elephone Encounter - Michelle Frias RN - 09/29/2013 1:39 PM [facility] that pt is c urrently taking 2 tabs at bedtime. Changed dispensed amount to 60 capsules w 2 refills.Elect ronically signed by Michelle Frias RN at 09/29/2013 1:41 PM PDTTelephone Encounter - Leah Frias RN - 09/29/2013 10:44 AM PDTPharmacy sent fax to clarify how much gabapentin pt was currently taking. Called pt and clarified that she is currently taking only 2 tabs at bedtim e w good relief. Faxed clarification from pt back to [facility] in [place].Electro nically signed by Michelle Frias RN at 09/29/2013 10:45 AM PDTdocumented in this encounter Plan of Treatment Not on filedocumented as of this encounter Visit Diagnoses + + | Diagnosis | + + | Lumbago - Primary | + + | Cervicalgia | + + documented in this encounter"
--- OUTSIDE RECORDS SUMMARY | ~2020-01-06 | XMS | Encounter Summary ---
Demographics + + + | Address | [address] | | | [place] [address] | + + + | Home Phone | | + + + | Preferred Language | Unknown | + + + | Marital Status | Single | + + + | Mormonism Affiliation | 1013 | + + + | Race | White | + + + | Ethnic Group | or | + + + Author + + + | Author | [facility] | | | and [place] | + + + | Organization | [facility] | | | and [place] | [...] Team Providers + +------+ + | Care It Portfolio Manager Name | Role | Phone | + +------+ + | Margie Gonzalez | PCP | | + +------+ + Encounter Details +--------+ + + + + | Date | Type | Department | Care Team | Description | +--------+ + + + + | 08/28/ | Abstract | [facility] | Bubba Maxwell | | | 2017 | | [address] | MD [address] | | | | | [place], | [address] [place] | | | | | [place] [address] | [place] [address] | | | | | [phone] | | | | | | | [...]
--- OUTSIDE RECORDS SUMMARY | ~2020-01-06 | XMS | Encounter Summary ---
Demographics + + + | Address | [address] | | | [place] [address] | + + + | Home Phone [...] | Organization | [facility] | | | and [place] | + + + | Address | Unknown | + + + | Phone | Unavailable | + + + Support + + +---------+ + | Name | Relationship | Address | Phone | + + +---------+ + | nAdrew Couch | ECON | Unknown | | + + +---------+ + | Shilpa Couch | ECON | Unknown | | + + +---------+ + Care Team Providers + +------+ + | Care Spray Painter Name | Role | Phone | + +------+ + | Margie Gonzalez | PCP | | + +------+ + Reason for Visit +--------+--------+ + | Reason | Onset | Comments | | | Date | | +--------+--------+ + | Other | 02/28/ | concern about going to [place] | | | 2017 | | +--------+--------+ + Encounter Details +--------+ + + + + | Date | Type | Department | Care Team | Description | +--------+ + + + + | 02/28/ | Telephone | [facility] | Bubba Maxwell | Other (concern about | | 2017 | | [address] | MD Y[address] | going to [place]) | | | | [place], | [place] [address] [place] | | | | | [place] [address] | [place] [address] | | | | | [phone] | [phone] | | | | | | | [...] this encounter Miscellaneous Notes Telephone Encounter - Julisa Salazar RN - 03/05/2018 4:24 PM PSTPatient notified and will go once ..........................................Julisa Salazar RN on 03/05/18 a t 16:25 elephone Erika Kelley RN - 03/05/2018 3:[address] Maxwell, he would strongly advise that Gwendolyn go to Dr Tavarez as referred. He feels that she will get the best care and the trip will be a one time trip. Left message at home number for patient to retur n my call. ...........................................Erika Blancas RN on 03/05/18 at 15: 43 elephone Erika Mejia RN - 02/28/2018 11:44 AM PSTDebby called, she has been referred to Dr Tavarez. She does not do long trips well and has trouble finding someone to assist in the driv ing. She would like to know if she can be referred to a surgeon in [facility] instead. I w ill consult Dr Maxwell and then let her know ...........................................Zina Blancas RN on 02/28/18 at 11:45 documented in this encounter Plan of Treatment Not on filedocumented as of this encounter Visit Diagnoses Not on filedocumented in this encounter"
--- OUTSIDE RECORDS SUMMARY | ~2020-01-06 | XMS | Encounter Summary ---
Demographics + + + | Address | [address] | | | [place] [address] | + + + | Home Phone | | + + + | Preferred Language | Unknown | + + + | Marital Status | Single | + + + | Taoism Affiliation | 1013 | + + + | Race | White | + + + | Ethnic Group | or | + + + Author + + + | Author | [facility] | | | and [place] | + + + | Organization | [facility] | [...] Providers + +------+ + | Care Concrete Floor Installer Name | Role | Phone | + [...] | Diagnoses | Hans, | Mary Kate Allen | | | Services | Disease / | Chronic | Bubba | Pulmonary | | | Required | Pulmonology | obstructive | MD Yimi | [address] | | | | | pulmonary | [address] | [place], | | | | | disease, | St [place] | [place] | | | | | unspecified | [place], [place] | [address] | | | | | COPD type | [address] | Phone: | | | | | (FORMERLY [facility]) | Phone: | [phone] | | | | | | [phone] | Fax: | | | | | | Fax: | [phone] | | | | | | [phone] | | +--------+ + + + + + Encounter Details +--------+---------+ + + + | Date | Type | Department | Care Team | Description | +--------+---------+ + + + | 10/30/ | Office | [facility] | Joseph Aranda, | Acute combined | | 2018 | Visit | PULMONARY [address] | [address] | systolic and | | | | [place], | [place] [address] | diastolic CHF, NYHA | | | | [place] [address] | [phone] | class 2 (HCC) | | | | [phone] | | (Primary Dx); | | | | [...] + + + documented in this encounter H&P Notes Joseph Aranda MD - 10/30/2017 1:20 PM PDT66 year old smoker sent for consultat ion by Dr. Maxwell to evaluate for possible pulmonary cause of dyspnea She says that for the past 6 months or so she is getting unexplained dyspnea. It can happe n when she is just sitting. At another time she can walk 2 blocks that are flat without sto pping, but if there is a slope she has to stop for breathlessness. She walks slowly up step s because she has to drag her leg with a repaired broken hip from July 2016. She began smoking age 16 and continues to smoke less than one pack per day now, 50 years, b ut smoked up to 1-1/2 pack per day during that period. She has a cough productive of sputum many days of the week. Sometimes clear, sometimes yellow, sometimes green. She does not h ear herself wheeze but her sister has asthma. Growing up she never had asthma and didn't brown ve allergies but she does have mild allergies in her eyes and nose this year. She has albut maria t to use but doesn't use it much and is not sure how well it works. In April and June of this year she went to the emergency department at [facility] with breathlessness and chest discomfort and had chest x-rays. The July 18 chest x-ray portable shows heart failure. She recently has been troubled by leg swelling a ll the way up to her knees and was placed on daily Lasix 20 mg October 08, but she says it does n't help as she thought it would. Her main meal at the [employer] where she works 4 days a week for 10 hours is an 11 AM, and it is probably very salted. Past medical history: She had spine surgery recently back in [place]. She had an echocar diogram a couple years ago with ejection fraction of 60% and an echocardiogram July 15 that showed an ejection fraction 40%. She had segmental wall abnormality. She had a hip fracture July 2016 as noted above. It was fixed with a ottoniel. She is allergic to OxyContin. 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 She lives with a dog which does not make her breathing worse and her grandson. She d oes not drink any alcohol. Physical exam: Pleasant articulate very lean woman in no distress who brought all her medic ations. Blood pressure 158/90, then 166/88 by me 20 minutes later. Weight 57.4 kg, pulse 8 5 regular temperature 97.7 respirations 16 oxygen saturation 97% on room air. I had her walk with me with oximetry over 2 and then up and down 50 stairs. At the start h er oxygen saturation was 93%, heart rate 82. At the end her oxygen saturation on room air w as still 93%, heart rate 111. Pupils are reactive, conjunctiva are pink. Oropharynx is normal. The neck feels normal to me. The lung james are completely clear today. Cardiac rhythm is regular and there is no gallop. The abdomen is scaphoid and benign. She has pitting edema longterm up to her knees today. Laboratory evaluation: May 08, 2017 chest x-ray has lung james that are normal, perhap s a touch hyperinflated, but she has osteoporosis and the left heart border and base on the left are outlined with a thin layer of calcification. The chest x-ray of June 2017 a freddie ble view shows heart failure with fluid in the minor fissure, right basilar densities and Ke rley B-lines. Echocardiogram from 2014 is as described above. There are no pulmonary funct ion tests. Impression and plan: 1. CHF and undertreated hypertension: I emphasized her the importance of staying away from salt, told her to stop the Lasix, wrote her prescriptions for hydrochlorothiazide 25 mg and spironolactone 25 mg. I told her to take these 8 AM every day so they will be in her body for her 11 AM lunch break at the [employer] and for her 5 PM dinner on the 3 days a week she rodriguez s not work. I told her we will take time for the leg swelling to go away. 2. Possible coronary disease: I discussed her with Dr. Maxwell and he will be seeing her to day. I have set her up to come back in 2 months with pulmonary function tests prior to her arriv al. By then I hope volume overload will no longer be a factor and we can see the extent of any lung disease she might have. We spent 45 minutes, at least half in counseling. Word pr ocessing was used and I apologize for mistakes. Joseph Aranda M.D. Pulmonary critical care documented in this encounter Plan of Treatment [...] | | | Joseph Aranda MD 01/11/2018 10:57[facility] | | | CENTER | | |IMPRESSION: [...] Aranda MD 01/11/2018 10:57 | | |[facility] | | | | | + + [...]
--- OUTSIDE RECORDS SUMMARY | ~2020-01-06 | XMS | Encounter Summary ---
Demographics + + + | Address | [address] | | | [place] [address] | + + + | Home Phone | | + + + | Preferred Language | Unknown | + + + | Marital Status | Single | + + + | Worship Affiliation | 1013 | + + + | Race | White | + + + | Ethnic Group | or | + + + Author + + + | Author | [facility] | | | and [place] | + + + | Organization | [facility] | | | and [...] Providers + +------+ + | Care Manager Strategy Name | Role | Phone | + +------+ + | Matt Kinney MD | PCP | | + +------+ + Encounter Details +--------+ + + + + | Date | Type | Department | Care Team | Description | +--------+ + + + + | 08/04/ | Hospital | [facility] | Bubba Maxwell | Carotid artery | | 2015 | Encounter | MED CTR ULTRASOUND | MD [address] | disease (HCC) | | | | [address] [place] | [address] [place] | | | | | [place], [place] | [place] [address] | | | | | [address] | [phone] | | | | | [phone] | | | | | | | [...] CAROTID ULTRASOUND 08/04/2014 1:00 PM CLINICAL | [place] | | HISTORY: carotid artery disease, history of endarterectomy | [facility] | | COMPARISON: CAROTID ULTRASOUND MARCH 2011 [...] [address] | [place], [place] | [phone] | | [facility] | | [address] | | | - IMAGING | | | | + + + + + documented in this encounter Visit Diagnoses + + | Diagnosis | + + | Carotid artery disease (HCC) Unspecified disorders of arteries and arterioles | + + documented in this encounter"
--- OUTSIDE RECORDS SUMMARY | ~2020-01-06 | XMS | Encounter Summary ---
Demographics + + + | Address | [address] | | | [place] [address] | + + + | Home Phone [...] Author | [facility] | | | and [place] | + + + | Organization | [facility] | | | and [place] [...] Team Providers + +------+ + | Care Social Economist Name | Role | Phone | + [...] Description | +--------+--------+ + + + | 09/26/ | Refill | [facility] [place] | Bubba Maxwell | Medication Refill | | 2020 | | [address] | MD [address] | | | | | [place], | [address] [place] | | | | | [place] [address] | [place] [address] | | | | | [phone] | [phone] | | | | | | | [...]
--- OUTSIDE RECORDS SUMMARY | ~2020-01-06 | XMS | Encounter Summary ---
Demographics + + + | Address | [address] | | | [place] [address] | + + + | Home Phone [...] | Author | [facility] | | | and [place] | + + + | Organization | [facility] | | | and [...] + + | 01/10/ | Office | [facility] | Joseph Aranda, | Acute combined | | 2018 | Visit | PULMONARY [address] | [address] | systolic and | | | | [place], | [place] [address] | diastolic CHF, NYHA | | | | [place] [address] | [phone] | class 2 (HCC) | | | | [phone] | | (Primary Dx); | | | [...] Joseph Aranda MD - 01/10/2018 3:20 PM [id number] smoker with compensated C HF and moderately [...]
--- OUTSIDE RECORDS SUMMARY | ~2020-01-06 | XMS | Encounter Summary ---
Demographics + + + | Address | [address] | | | [place] [address] | + + + | Home Phone | | + + + | Preferred Language | Unknown | + + + | Marital Status | Single | + + + | Druze Affiliation | Unknown | + + + [...] Team Providers + +------+ + | Care Coach Operator Name | Role | Phone | + +------+ + | Unknown | PCP | Unavailable | + +------+ + Encounter Details +--------+--------+ + + + | Date | Type | Department | Care Team | Description | +--------+--------+ + + + | 09/13/ | Travel | | | | | [...]
--- OUTSIDE RECORDS SUMMARY | ~2020-01-06 | XMS | Encounter Summary ---
Demographics + + + | Address | [address] | | | [place] [address] | + + + | Home Phone | | + + + | Preferred Language | Unknown | + + + | Marital Status | Single | + + + | Presybeterian Affiliation | 1013 | + + + | Race | White | + + + | Ethnic Group | or | + + + Author + + + | Author | [facility] | | | and [place] | + + + | Organization | [facility] | | | and [...] Team Providers + +------+ + | Care Lunch Wagon Operator Name | Role | Phone | + +------+ + | Matt Kinney MD | PCP | | + +------+ + Reason for Visit +--------+--------+ + | Reason | Onset | Comments | | | Date | | +--------+--------+ + | Other | 01/06/ | MRI orders | | | 2013 | | +--------+--------+ + Encounter Details +--------+ + + + + | Date | Type | Department | Care Team | Description | +--------+ + + + + | 01/06/ | Telephone | [facility] | Gael Adam, | Other (MRI orders) | | 2013 | | PH[address]ATRY [address] | MD [address] | | | | | [address] | [place] | | | | | [place] | [address] | | | | | [address] | | | | | | [phone] | | | +--------+ + + + [...] this encounter Miscellaneous Notes Telephone Encounter - Flaquita Pandya - 01/06/2014 2:54 PM PDTPatient would like the order for her shoulder MRI to be sent to [facility] so she can coordinate with other imaging. documented in this encount er Plan of Treatment Not on filedocumented as of this encounter Visit Diagnoses Not on filedocumented in this encounter"
--- OUTSIDE RECORDS SUMMARY | ~2020-01-06 | XMS | Encounter Summary ---
Demographics + + + | Address | [address] | | | [place] [address] | + + + | Home Phone [...] | Author | [facility] | | | and [place] | + + + | Organization | [facility] | | | and [place] [...] Providers + +------+ + | Care Mattress Weaver Name | Role | Phone | + +------+ + | Matt Kinney MD | PCP | | + +------+ + Reason for Visit +--------+--------+ + | Reason | Onset | Comments | | | Date | | +--------+--------+ + | Other | /03/ | Patient would like orders for imaging sent to St. | | | 2014 | [facility] | +--------+--------+ + Encounter Details +--------+ + + + + | Date | Type | Department | Care Team | Description | +--------+ + + + + | 05/26/ | Telephone | [facility] | Nestor Nice | Other (Patient would | | 2014 | | SURGERY [address] | MD [place], FACS [address] | like orders for | | | | [address] [place], [place] | [facility] | imaging sent to St. | | | | [address] | [place] [address] | [place]) | | | | [phone] | [phone] | | | | | | | [...] this encounter Miscellaneous Notes Telephone Encounter - Fabiola Ibanez - 05/26/2014 9:59 AM PSTPatient called stating that she would like the recall imaging orders sent over to [facility]. I faxed them to [facility] imaging department at [phone].Electronically signed by Fabiola Ibanez at 2014 10:03 AM PSTdocumented in this encounter Plan of Treatment Not on filedocumented as of this encounter Visit Diagnoses Not on filedocumented in this encounter"
--- OUTSIDE RECORDS SUMMARY | ~2020-01-06 | XMS | Encounter Summary ---
Demographics + + + | Address | [address] | | | [place] [address] | + + + | Home Phone [...] Organization | [facility] | | | and [...] Team Providers + +------+ + | Care Rn Labor Delivery Name | Role | Phone | + +------+ + | Margie Gonzalez | PCP | | + +------+ + Encounter Details +--------+ + + + + | Date | Type | Department | Care Team | Description | +--------+ + + + + | 08/13/ | Abstract | [facility] | Bubba Maxwell | | | 2017 | | [address] | MD [address] | | | | | [place], | [address] [place] | | | | | [place] [address] | [place] [address] | | | | | [phone] | [phone] | | | | | | | [...] | EXTERNAL LAB: BUN | Routin | 06/21/2017 | | Results [...] | EXTERNAL LAB: CBC | Routin | 06/21/2017 | | Results for this | | | e | | | procedure are in the | | | | | | results section. | + +--------+ + + + | EXTERNAL LAB: Erin SOLANO | Routin | 06/21/2017 | | Results for this | | NATURETIC PEPTIDE | e | | | procedure are in the | | | | | | results section. | + +--------+ + + + | EXTERNAL LAB: BJ | Routin | 06/21/2017 | | Results [...] +-------+ + + + External Lab: CBC (06/21/2017) + +-------+ + + + | [...]
--- OUTSIDE RECORDS SUMMARY | ~2020-01-06 | XMS | Encounter Summary ---
Demographics + + + | Address | [address] | | | [place] [address] | + + + | Home Phone [...] Author | [facility] | | | and [place] | + + + | Organization | [facility] | | [...] Team Providers + +------+ + | Care Bird Sitter Name | Role | Phone | + +------+ + | Matt Kinney MD | PCP | | + +------+ + Encounter Details +--------+ + + + + | Date | Type | Department | Care Team | Description | +--------+ + + + + | 03/04/ | Orders Only | [facility] [place] | Javon Ivy | Lumbosacral | | 2013 | | NEUROSURGERY [address] | [address] | spondylosis without | | | | [address] | [address] [place], [place] | myelopathy (Primary | | | | [place] | [address] | Dx) | | | | [address] | | | | | | [phone] | | | +--------+ + + + [...] filedocumented as of this encounter Results FL Facet Injection Lumbar Sacral (03/11/2014 3:50 PM PST) + + | Specimen | + + | | + + + + + | Narrative | Performed At | + + + | 03/11/2014 Bilateral Lumbar Facet Steroid Injections Diagnosis: | [facility] | | Lumbar Spondylosis ICD-9 Code 721.3 Etelvina Jean Pulse | [facility] | | presents to the fluoroscopy suite for fluoroscopically-guided [facility] | | bilateral L4-L5 and L5-S1 facet [...] Steroid InjectionsDiagnosis: Lumbar SpondylosisICD-9 Code 721.3Deborah Miranda Emmanuel | | presents to the fluoroscopy suite [...] + + | Performing | Address | City/State[facility] | Phone Number | | Organization | | | | + + + + + | [facility] | [address] | [place], [place] | [phone] | | [facility] | | [address] | | | - IMAGING | | | | + + + + + documented in this encounter Visit Diagnoses + + | Diagnosis | + + | Lumbosacral spondylosis without myelopathy - Primary | + + documented in this encounter"
--- OUTSIDE RECORDS SUMMARY | ~2020-01-06 | XMS | Encounter Summary ---
Demographics + + + | Address | [address] | | | [place] [address] | + + + | Home Phone | | + + + | Preferred Language | Unknown | + + + | Marital Status | Single | + + + | Caodaism Affiliation | Unknown | + + + | Race | White | + + + | Ethnic Group | Other Race | + + + Author + + + | Author | [facility] | + + + | Organization | [facility] | + + + | Address | Unknown | + + + | Phone | Unavailable | + + + Support + + +---------+ + | Name | Relationship | Address | Phone | + + +---------+ + | Karen Unknown | ECON | Unknown | | + + +---------+ + Care Team Providers + +------+ + | Care Marine Engine Driver Name | Role | Phone | [...] | Only | [address] | [phone] | | | | | [place] | | | | | | [address] | | | | | | [phone] | | | +--------+ + + + [...] from | | | | | | [facility] | | | | | | Consultants, Ruth, | | | | | | [place] arethree slides | | | | | [...] | | | | | Luis Felipe Farrar, M.D. | | | | | | [...] | + + + + + | [facility] | [address] | [place] [address] | | | PATHOLOGY | [address] | | | + + + + + documented in this encounter Visit Diagnoses Not on filedocumented in this encounter"
--- OUTSIDE RECORDS SUMMARY | ~2020-01-06 | XMS | Encounter Summary ---
Demographics + + + | Address | [address] | | | [place] [address] | + + + | Home Phone [...] + | Organization | [facility] | | | and [...] Team Providers + +------+ + | Care Regulation Supervisor Name | Role | Phone | [...] + + | 08/28/ | Hospital | [facility] | Bubba Maxwell | | | 2018 | Encounter | MED CTR OR PRE OP | MD Yimi [address] | | | | | [address] [place] | [address] [facility] | | | | | [place] [address] | [place] [address] | | | | | [phone] | [phone] | | | | | | | [...] | | 0 | | | | (TOMARIE SOLSTARLA [place]) | under the skin | | [...] encounter H&P Notes Bubba Maxwell MD - 08/28/2017 8:23 AM PDTSURGICAL INTERIM HISTORY & PHYSICAL UPDA TE Pt. Name/Age/: Etelvina Jean Pulse 66 y.o. 1950 Date of admission: 08/28/2017 The current H&P was reviewed. The patient [...] obtained. Electronically signed by: Bubba Maxwell MD, 08/28/2017 8:24 [facility] axdennise, Bubba Geller MD - 08/13/2017 1:30 PM PDTFormatting of [...] returned for follow-up visit and moved to [facility], having only returned recently. She ended up undergoing cervical fusion surgery in [facility] and did not have any further cardiology [...] 1975 [place] LYMPH NODE BIOPSY 1971 [place] NASAL SINUS SURGERY 1988 OTHER SURGICAL HISTORY Left 07/28/2014 Procedure: LEFT HEART CATH; Surgeon: Bubba Maxwell MD; Location: [facility] CARDIO VASC ULAR LAB ROTATOR CUFF [...] f rom consideration of consultation with an leather goods i assembler if feasible. Patient also would b enefit [...] made to ensure accuracy; however, inadvertent computerized transcriptionist errors may be pre sent. Electronically signed by: Rafael Maxwell MD PhD [facility] 08/13/2017 documented in t his encounter Plan [...] + +--------+ + + + | CV INCOMPLETE | Routin | 08/29/2017 | | | | PROCEDURE | e | 7:47 AM | | | | | | PDT | | | + +--------+ + + + | CV LHC | Routin | 08/29/2017 | | | | | e | 7:47 AM | | | | | | [...]
--- OUTSIDE RECORDS SUMMARY | ~2020-01-06 | XMS | Encounter Summary ---
Demographics + + + | Address | [address] | | | [place] [address] | + + + | Home Phone | | + + + | Preferred Language | Unknown | + + + | Marital Status | Single | + + + | Uatsdin Affiliation | 1013 | + + + | Race | White | + + + | Ethnic Group | or | + + + Author + + + | Author | [facility] | | | and [place] | + + + | Organization | [facility] [...] Team Providers + +------+ + | Care Hose Stripper Name | Role | Phone | + +------+ + | Margie Gonzalez | PCP | | + +------+ + Reason for Visit +--------+--------+ + | Reason | Onset | Comments | | | Date | | +--------+--------+ + | LABS | 06/13/ | | | | 2019 | | +--------+--------+ + Encounter Details +--------+ + + + + | Date | Type | Department | Care Team | Description | +--------+ + + + + | 06/13/ | Telephone | [facility] | Bubba Maxwell | LABS | | 2019 | | [address] | MD Yimi [address] | | | | | [place], | [address] [place] | | | | | [place] [address] | [place] [address] | | | | | [phone] | [phone] | | | | | | | [...] this encounter Miscellaneous Notes Telephone Encounter - Yumiko Villar Pick Up - 06/13/2018 10:00 AM PSTLeft mess age waiting for call back, Patient is needing fasting labs done prior to her appointment on 06/18/2018. Thank you! 9 10:02 AM PSTdocumented in this encounter Plan of Treatment Not on filedocumented as of this encounter Visit Diagnoses Not on filedocumented in this encounter"
--- OUTSIDE RECORDS SUMMARY | ~2020-01-06 | XMS | Encounter Summary ---
Demographics + + + | Address | [address] | | | [place] [address] | + + + | Home Phone [...] Team Providers + +------+ + | Care Flatwork Catcher Name | Role | Phone | + [...]
--- OUTSIDE RECORDS SUMMARY | ~2020-01-06 | XMS | Encounter Summary ---
Demographics + + + | Address | [address] | | | [place] [address] | + + + | Home Phone [...] + + + | Author | [facility] | | | and [place] | + + + | Organization | [facility] | | [...] Team Providers + +------+ + | Care Pathology Secretary/Transcriptionist Name | Role | Phone | + [...] | Mitral | Bubba | [address] | | | | | valve | MD Yimi | [place], | | | | | insufficienc | [address] | [place] | | | | | y, | St [place] | [address] | | | | | unspecified | [place] | Phone: | | | | | etiology | [address] | [phone] | | | | | Procedures | Phone: | Fax: | | | | | ECHO | [phone] | [phone] | | | | | Transesophag | Fax: | | | | | | eal (BELKIS) | [phone] | | | | | | OH ECHO | | | | | | | TRANSESOPHAG | | | | | | | R-T 2D | | | | | | | W/PRB IMG | | | | | | | ACQUISJ I&R | | | | | | | OH DOPPLER | | | | | | | ECHO | | | | | | | HEART,COMPLE | | | | | | | TE OH | | | | | | | [...] + + + + | 12/25/ | [facility] | [facility] | Bubba Maxwell | Mitral valve | | 2018 | Encounter | MED CTR CV INTRA OP | MD Yimi [address] | insufficiency, | | | | [address] | [address] [place] | unspecified etiology | | | | [place] | [place] [address] | | | | | [address] | [phone] | | | | | [phone] | | | +--------+ + + + [...] | 0 | | | | (TOMARIE SOLOSTAR [place]) | under the skin | [...] UPDA TE Pt. Name/Age/: Etelvina Jean Pulse 67 y.o. 1950 Date of admission: 12/25/2017 [...] signed by: Bubba Maxwell MD, 12/25/2017 8:27 [facility] axdennise, Bubba Geller MD - 11/27/2017 1:00 PM PDTFormatting of [...] returned for follow-up visit and moved to [place], having only ret urned recently. She ended up undergoing cervical fusion surgery in [place] and did not brown ve any further [...] CV LHC; Surgeon: Bubba Maxwell MD; Location: [facility] CV LAB CARDIAC CATHERIZATION N/A 11/13/2017 Procedure: CV LHC; Surgeon: Bubba Maxwell MD; Location: [facility] CV LAB HYSTERECTOMY 1976 [place] LYMPH NODE BIOPSY 1971 [place] NASAL SINUS SURGERY 1988 OTHER SURGICAL HISTORY Left 07/28/2014 Procedure: LEFT HEART CATH; Surgeon: Bubba Maxwell MD; Location: [facility] CARDIO VASC ULAR LAB ROTATOR CUFF [...] reviewed by me with the patient today: [facility] 11/13/2017, interpreted and reviewed by me [...] recent angiogram. Next task is to d etermine whether the patient would benefit from cardiac [...] f rom consideration of consultation with an estimator project manager if feasible. Patient also would b [...] made to ensure accuracy; however, inadvertent computerized wood boring machine operator errors may be pre sent. Electronically signed [...] (BELKIS) Demographics Patient | | | Name [facility] Room Number [facility] | | | LAB ROSALIE | | | [place] Patient Number [id number] Date of Study | | | 12/25/2017 Visit Number [id number] Accession | | | [id number] Interpreting YIMI MAXWELL MD Number | | | Physician Date of 1950 | | | Referring YIMI MAXWELL MD | | | Physician Age 67 | | | year(s) Photography Professor LIZETH SUMNER [facility] Gender | | | Female Nurse | | | Stress Labor Relations Worker Procedure Type of Study BELKIS | | [...] Report | | (BELKIS) Demographics Patient Name [facility] Room Number [facility]IO | | [facility] ROSALIE KAUFMAN Patient Number | | [id number] Date of Study 12/25/2017 Visit Number [id number] Accession | | [id number] Interpreting YIMI MAXWELL MD Number | | Physician Date of 1950 Referring YIMI MAXWELL MD | | Physician Age 67 year(s) Photography Professor LIZETH | | BIANCA SUMNER Gender Female [...] | | was auto-finalized due to the BEKLIS being performed in this invasive | | [...] + | [address] | [address] | [place] | [phone] | | [facility] | | [address] | | | - LABORATORY | | [...] | | | | FERNANDO EASTMAN MD ([id number]) | | | | | | on [...]
--- OUTSIDE RECORDS SUMMARY | ~2020-01-06 | XMS | Encounter Summary ---
Demographics + + + | Address | [address] | | | [place] [address] | + + + | Home Phone | | + + + | Preferred Language | Unknown | + + + | Marital Status | Single | + + + | Latter-Day Affiliation | 1013 | + + + | Race | White | + + + | Ethnic Group | or | + + + Author + + + | Author | [facility] | | | and [place] | + + + | Organization | [facility] | | | and [place] [...] Team Providers + +------+ + | Care Janitorial Cleaner Name | Role | Phone | + +------+ + | Matt Kinney MD | PCP | | + +------+ + Encounter Details +--------+ + + + + | Date | Type | Department | Care Team | Description | +--------+ + + + + | 05/28/ | Hospital | [facility] | Layton Knapp, | DDD (degenerative | | 2015 | Encounter | MED CTR XRAY [address] | DO [address] | disc disease), | | | | [place] | [address] [place], [place] | cervical; Neuropathy | | | | [place] [address] | [address] | | | | | [phone] | | | +--------+ + + + [...] + +--------+ + + + | XR CERVICAL SPINE 2 | Routin | 05/28/2014 | DDD (degenerative | Results for this | | OR 3 VIEWS | e | 2:37 PM | disc disease), | procedure are in the | | | | PST | cervical Neuropathy | results section. | + +--------+ + + + documented in this encounter Results XR CERVICAL SPINE 2 [...] + | Jesu Lopez Results In - 05/28/2014 4:14 PM PST [...] + | MISCELLANEOUS LAB | | | [phone] | + +---------+ + + | MISCELANIOUS LAB | | | [phone] | + +---------+ + + documented in this encounter Visit Diagnoses + + | Diagnosis | + + | DDD (degenerative disc disease), cervical Degeneration of cervical intervertebral | | disc | + + | Neuropathy Mononeuritis of unspecified site | + + documented in this encounter"
--- OUTSIDE RECORDS SUMMARY | ~2020-01-06 | XMS | Encounter Summary ---
Demographics + + + | Address | [address] | | | [place] [address] | + + + | Home Phone | | + + + | Preferred Language | Unknown | + + + | Marital Status | Single | + + + | Anabaptism Affiliation | 1013 | + + + | Race | White | + + + | Ethnic Group | or | + + + Author + + + | Author | [facility] | | | and [place] | + + + | Organization | [facility] | | | and [place] [...] Team Providers + +------+ + | Care Linux Developer Name | Role | Phone | [...] | disease) (Primary | | | | [address] [place], | [address] [place] | Dx); Pre-op | | | | [place] [address] | [place] [address] | evaluation | | | | [phone] | [phone] | | | | | | | [...] at | | | | | | (www.pamlThe American Academy).Testing | | | | | | Performed: [place], [address] | | | | | | [address] [place] | | | | | | [address] | | | | + + + + + + + + | Specimen | + + | Blood specimen | | (specimen) | + + + + + + + | Performing | Address | City/State/Zipcode | Phone Number | | Organization | | | | + + + + + | [facility] | [address] | [place] [address] | [phone] | + + + + + documented in this encounter Visit Diagnoses + + | Diagnosis | + + | CAD (coronary artery disease) - Primary Coronary atherosclerosis of unspecified type | | of vessel, [place] or graft | + + | Pre-op evaluation Preoperative examination, unspecified | + + documented in this encounter"
--- OUTSIDE RECORDS SUMMARY | ~2020-01-06 | XMS | Encounter Summary ---
Demographics + + + | Address | [address] | | | [place] [address] | + + + | Home Phone | | + + + | Preferred Language | Unknown | + + + | Marital Status | Single | + + + | Samaritan Affiliation | 1013 | + + + | Race | White | + + + | Ethnic Group | or | + + + Author + + + | Author | [facility] | | | and [place] | + + + | Organization | [facility] | | [...] Team Providers + +------+ + | Care Metal Spinner Name | Role | Phone | + +------+ + | Margie Gonzalez | PCP | | + +------+ + Reason for Visit + + + | Reason | Comments | + + + | Lab Order | | + + + Encounter Details +--------+ + + + + | Date | Type | Department | Care Team | Description | +--------+ + + + + | 12/25/ | Telephone | [facility] | Bubba Maxwell | Lab Order | | 2019 | | [address] | MD Yimi [address] | | | | | [place], | [address] [place] | | | | | [place] [address] | [place] [address] | | | | | [phone] | [phone] | | | | | | | [...] Miscellaneous Notes Telephone Encounter - Raina Crow - 12/25/2018 2:44 PM PDTPatient requests that her l ab orders be sent to [facility] in [place], [place]. Faxed the following lab order to f ax number [phone] as requested: CBC with Differential Basic Metabolic Panel Lipid Panel Hemoglobin [id number] signed by Raina Crow at 12/25/2018 2:48 PM PDTdocumented in this encounter Plan of Treatment Not on filedocumented as of this encounter Visit Diagnoses Not on filedocumented in this encounter"
--- OUTSIDE RECORDS SUMMARY | ~2020-01-06 | XMS | Encounter Summary ---
Demographics + + + | Address | [address] | | | [place] [address] | + + + | Home Phone [...] + + + | Author | [facility] | | | and [place] | + + + | Organization | [facility] | | | and [place] [...] Team Providers + +------+ + | Care Stock Mixer Name | Role | Phone | + [...] + + | Closed | Specialty | Physical | Diagnoses | Adam, | | | | Services | Therapy | Lumbar | Gael Ni MD | | | | Required | | radiculopath | [address] | | | | | | y Lumbalgia | [address] | | | | | | Lumbar | [place], | | | | | | facet | [place] [address] | | | | | | arthropathy | Phone: | | | | | | | [phone] | | | | | | | Fax: | | | | | | | [phone] | | +--------+ + + + + + Reason for Visit + + + | Reason | Comments | + + + | Leg Pain | bilateral legs | + + + Encounter Details +--------+---------+ + + + | Date | Type | Department | Care Team | Description | +--------+---------+ + + + | 09/26/ | Office | [facility] | Gael Adam, | Lumbar radiculopathy | | 2013 | Visit | PHYSIATRY [address] | MD [address] | (Primary Dx); | | | | [address] | [place] | Lumbalgia; Lumbar | | | | [place] | [address] | facet arthropathy; | | | | [address] | | Nocturnal leg | | | | [phone] | | cramps; Cervicalgia; | | | | | | Left arm pain | +--------+---------+ + + + Social History [...] + + + | Blood Pressure | 132/70 | 09/26/2013 9:21 AM | | | | | PDT | | + + + + + | Pulse | 70 | 09/26/2013 9:21 AM | | | | | PDT | | + + + + + | Temperature | - | - | | + + + + + | Respiratory Rate | 18 | 09/26/2013 9:21 AM | | | | | PDT | | + + + + + | Oxygen Saturation | - | - | | + + + + + | Inhaled Oxygen | - | - | | | Concentration | | | | + + + + + | Weight | - | - | | + + + + + | Height | 165.1 cm (5' 5") | 09/26/2013 9:21 AM | | | | | PDT | | + + + + + | Body Mass Index | - | - | | + + + + + documented in this encounter Patient Instructions Patient Instructions Gael Adam MD - 09/26/2013 10:11 AM PDTPhysical therapy has been prescribed. Please participate in physical therapy. If you have not be contacted for an a ppointment with physical therapy within one week, please contact the clinic. Once you have completed physical therapy please continue the home exercise program as outline by physical therapy, indefinitely. Please take the prescribed medication Gabapentin. Taper up the dose of the medication as di rected. Stop tapering up the medication at the lowest effective dose. If you have side eff ects to the medication, reduce the dose of the medication to the last dose that you were abl e to tolerate without side effects. Try taking gabapentin 300 mg twice per day for 3 to 4 days, then take 1 in the morning and 2 at night. Return to the clinic in 2-3 months. If you continue to have leg cramps follow up with Dr. Kinney and discuss if your legs need to be tested for poor circulation. 10 :13 AM PDT documented in this encounter Progress Notes Gael Adma MD - 09/26/2013 10:14 AM PDTThis office note has been dictated. Job ID# [id number] signed by Gael Adam MD at 09/26/2013 1:45 PM Julia Flores RN - 09/26/2013 9:23 AM PDTContinues to c/o pain to bilateral legs, only when walking. Back pain improved significantly following steroid injections on 09/05/13. Taking cymbalta and ga bapentin 1 tab for pain. Attended PT x 1Electronically signed by Julia Frias RN at 014 1:45 PM Gael Pickard MD - 09/26/2013 12:00 AM PDT [facility] [address] [place] [id number] FAX: [phone] OFFICE VISIT PHYSICAL MEDICINE REHABILITATION PROGRESS NOTE CONSULT REQUESTED BY: Pranav Kinney MD DATE OF SERVICE: 09/26/2013 PATIENT IDENTIFICATION: A 62-year-old female with low back pain radiating into lower extre mities. HISTORY OF PRESENT ILLNESS: Ms. Benitez was last seen 08/07/2013. At that time it was felt th at she had lumbar radiculopathy, primarily left L5 and right L4. She was sent for diagnosti c and therapeutic epidural steroid injection. The patient indicates that her back pain is g one. She indicates that the epidural steroid injection was exceedingly helpful. She is very pleased with reduced pain. Pain is currently a 2/10 on a numerical pain scale into the rig ht leg. She indicates that low back pain is gone. She occasionally still has some pain radi ating into the leg. She indicates that it is a "twinge" of pain. She indicates that the suad n is on the right side. She indicates that this pain comes and goes. She indicates that suad n is brought on by walking. She indicates that she could walk as little as 2 minutes and brown ve the pain come on. She indicates that she has been getting cramps in her left leg at nigh t, mostly at night. She indicates that there is discoloration in the left leg. She has a hi story of vascular disease. She indicates that the left leg has dark, dusky blue discolorati on to it. ALLERGIES: OXYCODONE. CURRENT MEDICATIONS 1. Vitamin C. 2. Aspirin 81 mg daily. 3. Lipitor. 4. Cymbalta. 5. Gabapentin. 6. Humalog insulin. 7. Synthroid. 8. Multivitamin. 9. Prilosec. REVIEW OF SYSTEMS: Ms. Benitez denies nausea, fever, chills, shortness of breath, or chest pa in. She denies skin breakdown or rash. All other review of systems negative. PHYSICAL EXAMINATION VITAL SIGNS: Heart rate 70, respiratory rate 18, blood pressure 132/70, height 5 feet 5 inc hes. GENERAL: No acute distress. Alert and oriented to person, place, time and situation. HEENT: Extraocular muscles intact. Sclerae clear. BACK: Slight asymmetry. Tenderness to palpation diffusely. EXTREMITIES: Exam demonstrates cyanotic change within left lower extremity, left foot appears to be blue, dusky in discolo ration. Right foot has normal coloration. No edema noted in either lower extremity. NEUROLOGIC: Exam demonstrates intact memory, concentration and speech. There is decreased sensation over left L5 and right L4 dermatomes. Remainder of sensation intact in lower extr emities. Reflexes are normal over patellae and Achilles of both lower extremities. Strength is improved in both lower extremities with 5/5 and knee flexion, knee extension, ankle plan tar flexion, hip flexion strength in both lower extremities. There is some remaining 4+/5 a nkle dorsiflexion in the left lower extremity compared to the right. DATABASE: No new imaging or laboratory data available for review at this time. IMPRESSION 1. LEFT L5 AND RIGHT L4 RADICULOPATHY, ICD-9 724.4. 2. LUMBALGIA - IMPROVED, ICD-9 724.2. 3. LUMBAR FACET ARTHRITIS - QUIESCENT, ICD-9 721.3. 4. NOCTURNAL LEG CRAMPS, ICD-9 327.52. 5. CERVICALGIA, ICD-9 723.1. 6. LEFT ARM PAIN, ICD-9 729.5. PLAN: Ms. Benitez, in the closing of her appointment today, reports some neck pain and arm pa in. We discussed the differential diagnosis. We discussed options of peripheral vascular di sease, cervical radiculopathy, neuropathy, tendinopathy. She reports some paresthesia at ti mes. There is no associated weakness. She reported rather diffuse pain. We discussed that marlon garcia could initiate a workup to evaluate for pain. We discussed that, based off of paresthesia and pain radiating down the arm, she may have cervical radiculopathy. She indicates that n yulia pain and arm pain is minimal. She declines workup for her possible cervical radiculopat hy. She declined cervical MRI at this time. She indicates that symptoms are minimal and she is not looking to do anything more about them at this time, simply wanted information rega rding possible differential diagnosis. She indicates that if symptoms are worse in the futu re she may consider further workup and treatment. She has nocturnal leg cramps. This may be related to lumbar radiculopathy. She does have du amanda discoloration of left leg. She has multiple risk factors for peripheral vascular diseas e. She was instructed to follow up with her primary care doctor to discuss workup, treatmen t and evaluation for peripheral vascular disease, which may be contributing towards vascula r claudication of the left lower extremity. In regard to lumbar radiculopathy, she is doing exceedingly well. Back pain is, in her word s, resolved. She was instructed that this is a response to epidural steroid injection. We discussed that the effects of the injection will wear off. We discussed that if she does no thing else to change the anatomy of the back that ultimately symptoms will return. She was prescribed physical therapy at her last visit, but she has not participated in it. She was advised at this time that she should participate in physical therapy to prevent recurrence o f back symptoms. She agrees. Physical therapy was once again prescribed. When she was last seen she was prescribed gabapentin. She indicates the medication was sedating to some degre e. She never did take the medication during the day. She has never tried taking a morning d ose. She believes the medication may be helpful. She indicates that when she took 2 tablets of gabapentin at night her leg pain was better. She was instructed to try tapering up rosie pentin as previously instructed. In summary, she will have physical therapy for her back. She will try tapering up gabapenti n. We may consider repeating epidural steroid injections in the future. If neck and shoulde r bother her more we may consider workup for cervical radiculopathy. She was instructed to follow up with Dr. Kinney regarding possible peripheral vascular disease, primarily in left l ower extremity. Greater than 30 minutes was spent oxoe-ns-ucog today with Ms. Benitez, over half of which was spent formulating and discussing her medical treatment plan. Thank you for allowing me to be involved in the care of your patient. If you have any questions regarding the care of Ms Stefanie Benitez please do not hesitate to call. Gael Adam Jr, MD [place] / [facility] JOB #: [id number] cc: Tracey Kinney MD Tdocumented in this encounter Plan of Treatment + + +--------+ + + | Name | Type | Priori | Associated Diagnoses | Order Schedule | | | | ty | | | + + +--------+ + + | External Ambulatory | Outpatient | Routin | Lumbar | Ordered: 09/26/2013 | | referral to Physical | Referral | e | radiculopathy | | | Therapy | | | Lumbalgia Lumbar | | | | | | facet arthropathy | | + + +--------+ + + documented as of this encounter Visit Diagnoses + + | Diagnosis | + + | Lumbar radiculopathy - Primary Thoracic or lumbosacral neuritis or radiculitis, | | unspecified | + + | Lumbalgia Lumbago | + + | Lumbar facet arthropathy Lumbosacral spondylosis without myelopathy | + + | Nocturnal leg cramps Sleep related leg cramps | + + | Cervicalgia | + + | Left arm pain Pain in limb | + + documented in this encounter
--- OUTSIDE RECORDS SUMMARY | ~2020-01-06 | XMS | Encounter Summary ---
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 Previously she had presented with her ezrtkxdu-ln-qrm [place] perry. Since our last visit, she has been doing well without any chest pain or exertional symptoms . She continues to have suboptimal diabetic control. Prior to our last visit, she underwen t transesophageal echocardiography which confirmed severe MR. thereafter he was referred to [facility] in [place], where she underwent mitral valve replacement with [...] returned for follow-up visit and moved to [place], having only ret urned recently. She ended up undergoing cervical fusion surgery in [place] and did not brown ve any further [...] CV LHC; Surgeon: Bubba Maxwell MD; Location: [facility] CV LAB CARDIAC CATHERIZATION N/A 11/13/2017 Procedure: CV LHC; Surgeon: Bubba Maxwell MD; Location: [facility] CV LAB CORONARY ARTERY BYPASS GRAFT 09/03/2018 Boby Bernard MD HYSTERECTOMY 1976 [place] LYMPH NODE BIOPSY 1971 [place] MITRAL VALVE REPLACEMENT 09/03/2018 NASAL SINUS SURGERY 1988 OTHER SURGICAL HISTORY Left 07/28/2014 Procedure: LEFT HEART CATH; Surgeon: Bubba Maxwell MD; Location: [facility] CARDIO VASC ULAR LAB ROTATOR CUFF [...] interpreted and reviewed by me and the [facility] ient today: Left ventricle is mildly enlarged [...] - 09/03/[address] Boby Terry - [facility] for saphenous vein graft to [...] benefit from consideration of consultation with an jet inspector if feasible. Nedra boykin also would benefit from further dietary education - she describes poor dietary choices in cluding frequent indulgence and ice cream and white bread. We had previously discussed conc ept of glycemic index which would benefit from future reinforcement. 3. Tobacco cessation - patient states that she is no longer smoking since discharge from [facility] and I have congratulated her [...] made to ensure accuracy; however, inadvertent computerized beef pluck trimmer errors may be pre sent. Electronically signed [...] | LABS - EXTERNAL SCAN | | 05/21/2019 | | Results for this | | [...] this encounter Results LABS - EXTERNAL SCAN (05/21/2019 12:00 AM PST) + + + | Narrative | Performed At | + + + | Ordered by an | | | unspecified provider. | | + + + CBC with Differential (01/14/2019) + [...]
--- OUTSIDE RECORDS SUMMARY | ~2020-01-06 | XMS | Encounter Summary ---
Demographics + + + | Address | [address] | | | [place] [address] | + + + | Home Phone | | + + + | Preferred Language | Unknown | + + + | Marital Status | Single | + + + | Sikhism Affiliation | Unknown | + + + | Race | White | + + + | Ethnic Group | Other Race | + + + Author + + + | Author | [facility] | + + + | Organization | [facility] | + + + | Address | Unknown | + + + | Phone | Unavailable | + + + Support + + +---------+ + | Name | Relationship | Address | Phone | + + +---------+ + | Karen Unknown | ECON | Unknown | | + + +---------+ + Care Team Providers + +------+ + | Care Tire Specialist Name | Role | Phone | + +------+ + | Unknown | PCP | Unavailable | + +------+ + Encounter Details +--------+ + + + + | Date | Type | Department | Care Team | Description | +--------+ + + + + | 09/16/ | Documentati | General Internal | Ronald Eldridge | | | 2019 | on | Medicine at Offsite | MD Macie [address] | | | | | [address] | [address] | | | | | [place], | [place], [place] | | | | | [place] [address] | [address] | | | | | [phone] | [phone] | | | | | | | [...] Addendum Note - Ronald Eldridge MD - 09/16/2018 8:47 PM PDT Addended by: RONALD ELDRIDGE on: 09/16/2018 08:47 PM Modules accepted: Orders elephone Enco untmynor - Ronald Eldridge MD - 09/16/2018 1:08 PM PDTCoordination of care note: ShayyConcepcion Abdalla See yesterday's note and admit from 09/13. DC insulin was 50units, pt arrive hypoglycemic ( 49) so 1st night in SNF I dec to 40 units. Cont'd her metformin. Pt had been sent to ED 5/25 early am for hypoglycemia, came back at 1pm 09/14. I dec insul in glargine further - from 40 to 30 units qhs. Called by RN today for CBG 442 at 1145am. CBGS 09/15 ACL 211, ACS 203, hs 94 09/16 ACB 47(given glucagon) 1 hours later 139, ACL 442 ASSESSMENT/PLAN: DM w hypoglycemia. Is on metformin 500mg bid, but renal function is fine, and liver enzymes are much improved. I rec 6 units humalog for 442, repeat was 310. Plan: Will dec lantus from 30 to 20units qhs. Add correction factor humalog: Inject 2-6 Units under the skin (SUBC) three times daily before meals. CBG < 100 give 0 CBG 101-200 give 2 units CBG 201-300 give 4 units CBG 301-400 give 6 units CBG > 400 call provider Do NOT use sliding scale at HS Call at 8:30 pm hs cbg is 63. Was 115 ats and gave her 2units of humalog. She got 30 units lantus last night, so should be ok with lower dose ordered (20units) has qhs snack due will recheck cbg in 2 hours - call if < 75 Will cut back on sliding scale though. CBG <140 give 0 CBG 140-220 give 2 units CBG 221-300 give 4 units CBG 301-400 give 6 units CBG > 400 call provider Do NOT use sliding scale at HS. M. William Eldridge MD Cloth Drier of Internal Medicine [facility] documented in th is encounter Plan of Treatment Not on filedocumented as of this encounter Visit Diagnoses Not on filedocumented in this encounter"
--- OUTSIDE RECORDS SUMMARY | ~2020-01-06 | XMS | Encounter Summary ---
Demographics + + + | Address | [address] | | | [place] [address] | + + + | Home Phone | | + + + | Preferred Language | Unknown | + + + | Marital Status | Single | + + + | Yarsani Affiliation | 1013 | + + + | Race | White | + + + | Ethnic Group | or | + + + Author + + + | Author | [facility] | | | and [place] | + + + | Organization | [facility] | [...] Team Providers + +------+ + | Care Operation Manager Name | Role | Phone | [...] | | | | | Tremor | [address] | updated | | | | | | [place], | address | | | | | | [place] [address] | | | | | | | Phone: | | | | | | | [phone] | | | | | | | Fax: | | | | | | | [phone] | | +--------+ + + + + [...] shoulder | [address] | [address] | | | | | pain Labral | [address] | ST [place] | | | | | tear of | [place], | [place], [place] | | | | | shoulder, | [place] [address] | [address] | | | | | right, | Phone: | Phone: | | | | | sequela | [phone] | [phone] | | | | | | Fax: | Fax: | | | | | | [phone] | [phone] | +--------+ + + + + + [...] | PHYSIATRY [address] | [address] | (Primary Dx); | | | | [address] | [place], [place] | Tremor; Lumbalgia; | | | | [place] | [address] | Lumbar facet | | | | [address] | | arthropathy; Lumbar | | | | [phone] | | spondylosis; History | | | [...] Your inje ction will be performed at [facility]. Please take note of weather your pain is significantly reduced in the hours immediately following the injecti on. Return to the clinic in 6-8 weeks to review the management of your back pain. documented in this encounter Progress Notes Gael Adam MD - 02/10/2014 3:54 PM PDTThis office note has been dictated. Job ID# [id number] signed by Gael Adam MD at 02/10/2014 6:34 PM [facility] MD - 02/10/2014 12:00 AM PDT [facility] [address] [place] [address] [place] [address] FAX: [phone] OFFICE VISIT PRIMARY CARE PROVIDER: Matt Kinney [...] therapy for low back. She continues a Path exercise program. She has tried anti-inflammatory medications [...] back pain. [facility] to review her response to lumbar facet steroid injections. Thank you for allowing me to be involved in the care of your patient. If you have any quest ions regarding the care of the patient, please do not hesitate to call. Greater than 40 min utes was spent torw-lr-nmba today with the patient, over half of which was spent formulatin g and discussing her medical treatment plan. Gael Adam Jr, MD IMMANUEL / ISAI JOB #: [id number] cc: Tracey Kinney MD Tdocumented in this [...] + +--------+ + + | * [facility] [place] | Outpatient | Routin | Frequent [...]
--- OUTSIDE RECORDS SUMMARY | ~2020-01-06 | XMS | Encounter Summary ---
Demographics + + + | Address | [address] | | | [place] [address] | + + + | Home Phone | | + + + | Preferred Language | Unknown | + + + | Marital Status | Single | + + + | Jehovah'S Witness Affiliation | 1013 | + + + | Race | White | + + + | Ethnic Group | or | + + + Author + + + | Author | [facility] | | | and [place] | + + + | Organization | [facility] | | | and [place] [...] Providers + +------+ + | Care Food Science Professor Name | Role | Phone | [...] + + | 11/13/ | Hospital | [facility] | Bubba Maxwell | Abnormal heart rate; | | 2017 | Encounter | MED CTR CV INTRA OP | MD Yimi [address] | SOB (shortness of | | | | [address] | [address] [place] | breath); Coronary | | | | [place], [place] | [place] [address] | artery disease of | | | | [address] | [phone] | [place] artery of | | | | [phone] | | [place] heart with | | | | | [...] You can't be awakened Date Last Reviewed: 02/08/201619990590-9438 [employer]. [address] [place] [address], [place] [address]. All righ ts reserved. This information is [...] signed by: Bubba Maxwell MD, 11/13/2017 8:25 [facility] Bubba Tobias MD - 10/30/2017 3:30 PM [...] since resolved. [facility]. Unfortunately she continues to [...] returned for follow-up visit and moved to [place], having only ret urned recently. She ended up undergoing cervical fusion surgery in [place] and did not brown ve any further [...] CV LHC; Surgeon: Bubba Maxwell MD; Location: [facility] CV LAB HYSTERECTOMY 1975 [place] LYMPH NODE BIOPSY 1971 [place] NASAL SINUS SURGERY 1988 OTHER SURGICAL HISTORY Left 07/28/2014 Procedure: LEFT HEART CATH; Surgeon: Bubba Maxwell MD; Location: [facility] CARDIO VASC ULAR LAB ROTATOR [...] f rom consideration of consultation with an collar starcher if feasible. Patient also would b enefit [...] made to ensure accuracy; however, inadvertent computerized casino porter errors may be pre sent. Electronically signed by: Rafael Maxwell MD PhD FACC 10/30/2017 documented in t his encounter Procedure Notes Bubba Maxwell MD - 11/13/2017 1:08 PM PDTAssociated Order(s): CV CARDIAC PROCEDUR E CARDIAC CATHETERIZATION and CORONARY ANGIOGRAPHY PATIENT NAME/: Etelvina Benitez, (1950) DATE OF PROCEDURE: 11/13/2017 COMPUTER FORENSIC EXAMINER: Bubba Maxwell MD, PhD, [facility] PROCEDURES PERFORMED: Coronary Angiography Left Heart Catheterization [...] 109 | 70 - 109 mg/dL | [facility] | | | POC | | | [...] [address] | [place] | [phone] | | [facility] | | [address] | | | - LABORATORY | | [...] | OF PROCEDURE: 11/13/2017 | | | COMPUTER FORENSIC EXAMINER: Bubba Maxwell MD, PhD, [facility] PROCEDURES | | | PERFORMED:Coronary AngiographyLeft Heart [...] | 08:40. Moderate sedation stop time: 09:10. Bubba Marquez | | | MD Hans, PhD, FACC [...] Moderate sedation stop | | |time: 09:10. IBubba MD, PhD, FACC reviewed the | | [...] [address] | [place] | [phone] | | [facility] | | [address] | | | - LABORATORY | | | | + + + + + documented in this encounter Visit Diagnoses + + | Diagnosis | + + | Abnormal heart rate | + + | SOB (shortness of breath) Shortness of breath | + + | Coronary artery disease of [place] artery of [place] heart with stable angina pectoris | | [...] cardiac cath site, | | | Starting Sun11/13/17 at 0928, For | | | 1 [...]
--- OUTSIDE RECORDS SUMMARY | ~2020-01-06 | XMS | Encounter Summary ---
Demographics + + + | Address | [address] | | | [place] [address] | + + + | Home Phone | | + + + | Preferred Language | Unknown | + + + | Marital Status | Single | + + + | Episcopal Affiliation | 1013 | + + + | Race | White | + + + | Ethnic Group | or | + + + Author + + + | Author | [facility] | | | and [place] | + + + | Organization | [facility] [...] Team Providers + +------+ + | Care Database Consultant Name | Role | Phone | [...] | | | | | Lumbar | Luis Alfredoerenberg, | [address] | | | | | radiculopath | Javon Bautista MD | [place], | | | | | y | [address] | [place] | | | | | Procedures | [place] | [address] | | | | | DC INJECT | [place], [place] | Phone: | | | | | ANES/STEROID | [address] | [phone] | | | | | FORAMEN | Phone: | Fax: | | | | | LUMBAR/SACRA | [phone] | [phone] | | | | | L W IMG | Fax: | | | | | | GUIDE ,1 | [phone] | | | | | | LEVEL [place] | | | | | | | [...] | | | | | | | DC | | | | | | | [...] + + + + | 08/26/ | [facility] | [facility] | Javon Ivy | Lumbar radiculopathy | | 2013 | Encounter | MED CTR XRAY [address] | T, [address] | | | | | [place] | ST [place], [place] | | | | | [place] [address] | [address] | | | | | [phone] | | | | | | | Auto HaulerLeonora | | | | | | [place] [...] of this encounter Miscellaneous Notes Miscellaneous - [facility] - 09/08/2013 12:00 AM PDT iscellaneous - ONBASE SCAN [facility] - 08/26/2013 12:00 AM PDTEle ctronically signed by diya [facility] at 09/30/2013 3:43 PM PDTdocumented in this encounter Plan of [...] + | 08/26/13 Right L4-L5 and Left L5-N2Wnealierqcrlea Epidural Steroid | [facility] | | Injections Diagnosis: Lumbar radiculopathy ICD-9 Code 724.4 | [facility] | | Etelvina Benitez presents to the fluoroscopy suite for [facility] | | fluoroscopically-guided right L4-L5 and [...] PDT 08/26/13Right L4-L5 and Left | | L5-W7Mlqwfqgdmynjju Epidural Steroid InjectionsDiagnosis: Lumbar radiculopathyICD-9 Code | [...] + + | [address] | [address] | [place] | [phone] | | [facility] | | [address] | | | - IMAGING | | [...] | | er | | INTRATHECAL, ONCE, Sun08/26/13 at | | PM PDT | | [...]
--- OUTSIDE RECORDS SUMMARY | ~2020-01-06 | XMS | Encounter Summary ---
Demographics + + + | Address | [address] | | | [place] [address] | + + + | Home Phone | | + + + | Preferred Language | Unknown | + + + | Marital Status | Single | + + + | Evangelical Affiliation | 1013 | + + + | Race | White | + + + | Ethnic Group | or | + + + Author + + + | Author | [facility] | | | and [place] | + + + | Organization | [facility] [...] Team Providers + +------+ + | Care Commission Sales Associate Name | Role | Phone | + +------+ + PCP | Unavailable | + +------+ + Reason for Visit + +--------+ + | Reason | Onset | Comments | | | Date | | + +--------+ + | Follow-up | 04/28/ | Patient had recall, received results | | | 2013 | | + +--------+ + Encounter Details +--------+ + + + + | Date | Type | Department | Care Team | Description | +--------+ + + + + | 04/28/ | Telephone | [facility] | Nestor Nice | Follow-up (Patient | | 2014 | | SURGERY [address] | MD Alma, FACS [address] | had recall, received | | | | [place], [place] | [address] [facility] | results) | | | | [address] | [place] [address] | | | | | [phone] | [phone] | | | | | | | [...] this encounter Miscellaneous Notes Telephone Encounter - Shanique Aragon RN - 04/30/2013 10:04 AM PSTDone. Electronically sign ed by Shanique Aragon RN at 04/30/2013 10:04 AM PSTTelephone Encounter - Fabiola Ibanez - 3:55 PM PSTPatient had recall due in March. Imaging was done 04/01/13. Receiv ed imaging 04/28/13. Per Dr. Nice, patient to repeat again in 1 year. Shanique please do an order for a recall in one year. documented in this encounter Plan of Treatment [...]
--- OUTSIDE RECORDS SUMMARY | ~2020-01-06 | XMS | Encounter Summary ---
Demographics + + + | Address | [address] | | | [place] [address] | + + + | Home Phone [...] Organization | [facility] | | | and [place] [...] Team Providers + +------+ + | Care Player Piano Technician Name | Role | Phone | [...] Pre-op exam | Bubba | [address] | | | | | CAD | MD Yimi | [place], | | | | | (coronary | [address] | [place] | | | | | artery | [place] | [address] | | | | | disease) | [place], [place] | Phone: | | | | | Procedures | [address] | [phone] | | | | | ECHO | Phone: | Fax: | | | | | Complete [place] | [phone] | [phone] | | | | | ECHO HEART | Fax: | | | | | | [place] | [phone] | | | | | | MPLETE W | | | | | | | DOPPLER [place] | | | | | | | [...] atherosclero | MD Yimi | [address] | | | | | sis of | [address] | [place], | | | | | unspecified | St [place] | [place] | | | | | type of | [place], [place] | [address] | | | | | vessel, | [address] | Phone: | | | | | [place] | Phone: | [phone] | | | | | graft | [phone] | Fax: | | | | | Preoperative | Fax: | [phone] | | | | | | [phone] | | | | | | examination, [...] | | | | | | STUDIES [place] | | | | | | | CV STRS TST | | | | | | | XERS&/OR RX | | | | | | | CONT ECG W/O | | | | | | | I&R [place] | | | | | | | [...] | [address] | [address] | | | | | stenosis of | [place] | St [facility] | | | | | spinal canal | [address] | [place] | | | | | [place] | Phone: | [phone] Phone: | | | | | stenosis of | [phone] | [phone] | | | | | cervical | Fax: | Fax: | | | | | region | [phone] | [phone] | | | | | Cervical | [...] + + | 06/24/ | Office | [facility] | Bubba Maxwell | Pre-op exam (Primary | | 2014 | Visit | CARDIOLOGY [address] | MD Yimi [address] | Dx); CAD (coronary | | | | [address] [place], | [address] [place] | artery disease); | | | | [place] [address] | [place] [address] | Tobacco use disorder | | | | [phone] | [phone] | | | | | | | [...] Procedure Laterality Date Lymph node biopsy 1971 [place] Hysterectomy 1975 [place] Rotator cuff repair [...] benefit from consideration of consultation with an kiln placer if feasible. 3. Tobacco cessation - this [...] made to ensure accuracy; however, inadvertent computerized bag patcher errors may be pre sent. Electronically signed [...] + +--------+ + + + | ECG - EXTERNAL SCAN | | 06/24/2014 | | | | | | 12:00 AM | | | | | | PST | | | + +--------+ + + [...] | Signed by: Rafael Maxwell MD PhD [facility] 07/15/2014, 12:40 | | + + + + + + | Narrative | Performed At | + + + | NUCLEAR MEDICINE STRESS TEST REPORT | [facility] | | Patient Name: Etelvina Benitez Study Date: 07/15/2014 Primary | [facility] | | Care Provider: Matt Kinney : | [facility] | | 1950 Age: 63 [...] | + + + + + | [address] | [address] | [place], [place] | [phone] | | [facility] | | [address] | | | - IMAGING | | | | + + + + + ECHO Complete (07/15/2014 12:20 PM PDT) + + | Specimen | + + | | + + + + + | Narrative | Performed At | + + + | [facility] ECHOCARDIOGRAM REPORT | [facility] | | STUDY DATE: 07/15/2014 PATIENT NAME: Etelvina Jean Pulse : | [facility] | | 1950 PCP: Matt Kinney [facility] | | HISTORY/DIAGNOSIS: CAD, preop evaluation [...] PhD FACC | | | 07/15/2014 12:21 Layout Inspector: David Dudley RDMS | | + + + + + + + + | Performing | Address | City/State/Zipcode | Phone Number | | Organization | | | | + + + + + | [address] | [address] | [place] | [phone] | | [facility] | | [address] | | | - IMAGING | | | | + + + + + documented in this encounter Visit Diagnoses + + | Diagnosis | + + | Pre-op exam - Primary Preoperative examination, unspecified | + + | CAD (coronary artery disease) Coronary atherosclerosis of unspecified type of vessel, | | [place] or graft | + + | Tobacco use disorder | + + documented in this encounter
--- OUTSIDE RECORDS SUMMARY | ~2020-01-06 | XMS | Encounter Summary ---
Demographics + + + | Address | [address] | | | [place] [address] | + + + | Home Phone [...] + + | Author | [facility] | | | and [place] | + + + | Organization | [facility] | | | and [...] Team Providers + +------+ + | Care Faculty Head Name | Role | Phone | + [...] Transaction, | Spondylosis | | | | [address] | Provider Unknown | | | | | [place], [place] | [phone] | | | | | [address] | (Fax) | | | | | [phone] | | | +--------+ + + + [...]
--- OUTSIDE RECORDS SUMMARY | ~2020-01-06 | XMS | Encounter Summary ---
Demographics + + + | Address | [address] | | | [place] [address] | + + + | Home Phone | | + + + | Preferred Language | Unknown | + + + | Marital Status | Single | + + + | Buddhism Affiliation | Unknown | + + + [...] + +------+ + | Care Director Of Real Estate Name | Role | Phone | + +------+ + | Margie Gonzalez PA-C | PCP | | + +------+ + Reason for Visit + +--------+ + | Reason | Onset | Comments | | | Date | | + +--------+ + | Hypoglycemia | 09/15/ | | | | 2018 | | + +--------+ + Encounter Details +--------+ + + + + | Date | Type | Department | Care Team | Description | +--------+ + + + + | 09/15/ | Telephone | [facility] | Parminder | Radames | | 2018 | | at [facility] | MD Ran | | | | | [address] | [address] | | | | | Loop Physician's | [place], | | | | | [address], [facility] floor | [place] [address] | | | | | [place], [place] | [phone] | | | | | [address] | | | | | | [phone] | | | +--------+ + + + [...] this encounter Miscellaneous Notes Telephone Encounter - Ran Zurita MD - 09/15/2018 4:04 PM PDTOn call note: Late en try Patients nurse (Summer) reported that patients glucose was measured in the 40's and was giv en glucagon and oral glucose (juice etc). She is only on Glargine insulin. However, even aft er this, her sugars were found to be very low again with visible signs of hypoglycemia. I've asked them to active emergency services and send her to the ER. documented in this encounter Plan of Treatment Not on filedocumented as of this encounter Visit Diagnoses Not on filedocumented in this encounter"
--- OUTSIDE RECORDS SUMMARY | ~2020-01-06 | XMS | Encounter Summary ---
Demographics + + + | Address | [address] | | | [place] [address] | + + + | Home Phone [...] | Author | [facility] | | | and [place] | + + + | Organization | [facility] | | | and [place] [...] Team Providers + +------+ + | Care Bending Roll Operator Name | Role | Phone | + +------+ + | Matt Kinney MD | PCP | | + +------+ + Reason for Visit + +--------+ + | Reason | Onset | Comments | | | Date | | + +--------+ + | Appointment | 07/23/ | | | | 2014 | | + +--------+ + Encounter Details +--------+ + + + + | Date | Type | Department | Care Team | Description | +--------+ + + + + | 07/23/ | Telephone | [facility] | Bubba Maxwell | Appointment | | 2014 | | [address] | MD Yimi [address] | | | | | [place], | [address] [place] | | | | | [place] [address] | [place] [address] | | | | | [phone] | [phone] | | | | | | | [...] this encounter Miscellaneous Notes Telephone Encounter - Dariana Arias - 07/31/2014 4:11 PM PDTPatient was called and she confirmed that 08-25-2014 will work for her. elephone Encounter - Raina Crow - 07/23/2014 1:57 PM PD TPatient had an appointment with Dr. Maxwell appointment on 08-26-14 at 1:[address] Maxwell bobo l be out of office. Appointment has been rescheduled to 08-25-14 at 1:00. Called patient's h ome phone and left VM message with request for patient to call back to confirm.Electronicall y signed by Raina Crow at 07/23/2014 1:59 PM PDTdocumented in this encounter Plan of Treatment Not on filedocumented as of this encounter Visit Diagnoses Not on filedocumented in this encounter"
--- OUTSIDE RECORDS SUMMARY | ~2020-01-06 | XMS | Encounter Summary ---
Demographics + + + | Address | [address] | | | [place] [address] | + + + | Home Phone | | + + + | Preferred Language | Unknown | + + + | Marital Status | Single | + + + | Moravian Affiliation | 1013 | + + + | Race | White | + + + | Ethnic Group | or | + + + Author + + + | Author | [facility] | | | and [place] | + + + | Organization | [facility] | | | [...] Providers + +------+ + | Care Metal Alloy Scientist Name | Role | Phone | + +------+ + | Margie Gonzalez | PCP | | + +------+ + Encounter Details +--------+ + + + + | Date | Type | Department | Care Team | Description | +--------+ + + + + | 05/21/ | Abstract | [facility] | Bubba Maxwell | | | 2019 | | [address] | MD Yimi [address] | | | | | [place], | [address] [place] | | | | | [place] [address] | [place] [address] | | | | | [phone] | [phone] | | | | | | | [...] | EXTERNAL LAB: ALT | Routin | 05/21/2019 | | Results for this | | | e | | | procedure are in the | | | | | | results section. | + +--------+ + + + | EXTERNAL LAB: AST | Routin | 05/21/2019 | | Results for this | | | e | | | procedure are in the | | | | | | results section. | + +--------+ + + + | EXTERNAL LAB: | Routin | 05/21/2019 | | Results for this | | ALKALINE PHOSPHATASE | e | | | procedure are in the | | | | | | results section. | + +--------+ + + + | EXTERNAL LAB: | Routin | 05/21/2019 | | Results for this | | BILIRUBIN, TOTAL | e | | | procedure are in the | | | | | | results section. | + +--------+ + + + | EXTERNAL LAB: | Routin | 05/21/2019 | | Results for this | | ALBUMIN | e | | | procedure are in the | | | | | | results section. | + +--------+ + + + | EXTERNAL LAB: | Routin | 05/21/2019 | | Results for this | | PROTEIN, TOTAL | e | | | procedure are in the | | | | | | results section. | + +--------+ + + + | EXTERNAL LAB: | Routin | 05/21/2019 | | Results for this | | TRIGLYCERIDES | e | | | procedure are in the | | | | | | results section. | + +--------+ + + + | EXTERNAL LAB: | Routin | 05/21/2019 | | Results for this | | CHOLESTEROL, HDL | e | | | procedure are in the | | | | | | results section. | + +--------+ + + + | EXTERNAL LAB: | Routin | 05/21/2019 | | Results for this | | CHOLESTEROL, TOTAL | e | | | procedure are in the | | | | | | results section. | + +--------+ + + + | EXTERNAL LAB: | Routin | 05/21/2019 | | Results for this | | CHOLESTEROL, LDL | e | | | procedure are in the | | | | | | results section. | + +--------+ + + + | HEPATIC FUNCTION | Routin | 05/21/2019 | | Results for this | | PANEL | e | | | procedure are in the | | | | | | results section. | + +--------+ + + + documented in this encounter Results Hepatic Function Panel (05/21/2019) + +---------+ + + + | Component | Value | Ref Range | Performed | Pathologist | | | | | At | Signature | + +---------+ + + + | VLDL | 17 | 4 - 40 | | | | Cholesterol | | | | | | Tim | | | | | + +---------+ + + + | Chol/HDL | 3.6 | 0.0 - 4.4 | | | | Ratio | | | | | + +---------+ + + + | Non-HDL | 163 (A) | 0 - 130 | | | | Cholesterol | | | | | + +---------+ + + + | Globulin | 2.5 | 1.8 - 3.5 | | | + +---------+ + + + | Albumin/Theresa | 1.6 | 1.1 - 2.4 | | | | bulin Ratio | | | | | + +---------+ + + + | Bilirubin | 0.1 | 0.0 - 0.3 mg/dL | | | | Direct | | | | | + +---------+ + + + | BILIRUBIN | 0.3 | 0.0 - 1.0 mg/dL | | | | INDIRECT | | | | | + +---------+ + + + + + | Specimen | + + | Blood | + + External Lab: ALT (05/21/2019) + +-------+ + + + | Component | Value | Ref Range | Performed | Pathologist | | | | | At | Signature | + +-------+ + + + | ALT, | 13 | 7 - 52 | | | | External | | | | | + +-------+ + + + + + | Resulting Agency Comment | + + | [facility] | + + External Lab: IRENE (05/21/2019) + +-------+ + + + | Component | Value | Ref Range | Performed | Pathologist | | | | | At | Signature | + +-------+ + + + | AST, | 19 | 13 - 39 | | | | External | | | | | + +-------+ + + + + + | Resulting Agency Comment | + + | [facility] | + + External Lab: Alkaline Phosphatase (05/21/2019) + +-------+ + + + | Component | Value | Ref Range | Performed | Pathologist | | | | | At | Signature | + +-------+ + + + | ALP, | 89 | 31 - 130 | | | | External | | | | | + +-------+ + + + + + | Resulting Agency Comment | + + | [facility] | + + External Lab: Bilirubin, Total (05/21/2019) + +-------+ + + + | Component | Value | Ref Range | Performed | Pathologist | | | | | At | Signature | + +-------+ + + + | Bilirubin, | 0.4 | 0 - 1.2 | | | | Total, | | | | | | External | | | | | + +-------+ + + + + + | Resulting Agency Comment | + + | [facility] | + + External Lab: Albumin (05/21/2019) + +-------+ + + + | Component | Value | Ref Range | Performed | Pathologist | | | | | At | Signature | + +-------+ + + + | Albumin, | 4.0 | 3.5 - 5 | | | | External | | | | | + +-------+ + + + + + | Resulting Agency Comment | + + | [facility] | + + External Lab: Protein, Total (05/21/2019) + +-------+ + + + | Component | Value | Ref Range | Performed | Pathologist | | | | | At | Signature | + +-------+ + + + | Protein, | 6.5 | 6 - 8.3 | | | | Total, | | | | | | External | | | | | + +-------+ + + + + + | Resulting Agency Comment | + + | [facility] | + + External Lab: Triglycerides (05/21/2019) + +-------+ + + + | Component | Value | Ref Range | Performed | Pathologist | | | | | At | Signature | + +-------+ + + + | Triglycerid | 85 | 30 - 150 | | | | es, | | | | | | External | | | | | + +-------+ + + + + + | Specimen | + + | Blood | + + + + | Resulting Agency Comment | + + | [facility] | + + External Lab: Cholesterol, HDL (05/21/2019) + +-------+ + + + | Component | Value | Ref Range | Performed | Pathologist | | | | | At | Signature | + +-------+ + + + | HDL | 62.4 | 40 - 99,999 | | | | Cholesterol | | mg/dl | | | | , External | | | | | + +-------+ + + + + + | Specimen | + + | Blood | + + + + | Resulting Agency Comment | + + | [facility] | + + External Lab: Cholesterol, Total (05/21/2019) + +---------+ + + + | Component | Value | Ref Range | Performed | Pathologist | | | | | At | Signature | + +---------+ + + + | Cholesterol | 225 (A) | 0 - 200 mg/dl | | | | , Total, | | | | | | External | | | | | + +---------+ + + + + + | Specimen | + + | Blood | + + + + | Resulting Agency Comment | + + | [facility] | + + External Lab: Cholesterol, LDL (05/21/2019) + +---------+ + + + | Component | Value | Ref Range | Performed | Pathologist | | | | | At | Signature | + +---------+ + + + | LDL | 146 (A) | 0 - 100 | | | | Cholesterol | | | | | | , Direct, | | | | | | External | | | | | + +---------+ + + + + + | Specimen | + + | Blood | + + + + | Resulting Agency Comment | + + | [facility] | + + documented in this encounter Visit Diagnoses Not on filedocumented in this encounter"
--- OUTSIDE RECORDS SUMMARY | ~2020-01-06 | XMS | Encounter Summary ---
Demographics + + + | Address | [address] | | | [place] [address] | + + + | Home Phone [...] | Author | [facility] | | | and [place] | + + + | Organization | 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 7. Make sure you have a pile driver operator to take you home. Your pile driver operator will also need to sign you ou [...] hospital line at and ask for nursing transformer assembly supervisor t o let them know you [...] She was recently seen in [facility] r consultation by pulmonology. Unfortunately she continues to [...] returned for follow-up visit and moved to [place], having only ret urned recently. She ended up undergoing cervical fusion surgery in [place] and did not brown ve any further [...] CV LHC; Surgeon: Bubba Maxwell MD; Location: [facility] CV LAB HYSTERECTOMY 1975 [place] LYMPH NODE BIOPSY 1971 [place] NASAL SINUS SURGERY 1988 OTHER SURGICAL HISTORY Left 07/28/2014 Procedure: LEFT HEART CATH; Surgeon: Bubba Maxwell MD; Location: [facility] CARDIO VASC ULAR LAB ROTATOR CUFF [...] f rom consideration of consultation with an tabber if feasible. Patient also would b enefit [...] made to ensure accuracy; however, inadvertent computerized test kitchen home economist errors may be pre sent. Electronically signed by: Rafael Maxwell MD PhD [facility] 10/30/2017 documented in t his encounter Plan [...]
--- OUTSIDE RECORDS SUMMARY | ~2020-01-06 | XMS | Encounter Summary ---
Demographics + + + | Address | [address] | | | [place] [address] | + + + | Home Phone [...] + | Organization | [facility] [...] Team Providers + +------+ + | Care Coal Miner Name | Role | Phone | + [...] | Gael Ni MD | [address] | | | | | shoulder | [address] | [place], | | | | | pain Right | [address] | [place] | | | | | rotator cuff | [place], | [address] | | | | | tear | [place] [address] | Phone: | | | | | Procedures | Phone: | [phone] | | | | | MRI Shoulder | [phone] | Fax: | | | | | Right | Fax: | [phone] | | | | | Arthrogram w | [phone] | | | | | | Contrast [...] + + | 12/24/ | Office | [facility] [place] | Gael Adam, | Right shoulder pain | | 2013 | Visit | PHYSIATRY [address] | MD [address] | (Primary Dx); Right | | | | [address] | [place] | rotator cuff tear; | | | | [place] | [address] | Lumbalgia; Facet | | | | [address] | | arthritis of lumbar | | | | [phone] | | region; Lumbar | | | [...] requested imaging. Within one week, you ijeoma uld receive a call to schedule your MRI. [...] office note has been dictated. Job ID# [id number] signed by Gael Adam MD at 12/24/2013 2:38 PM PDTMildred Colon RN - 12/24/2013 1:49 PM PDTPatient states 5/10 pain to lower back that radiates to legs, states new problem of right shoulder pain. Gael Pickard MD - 12/24/2013 12:00 AM [facility] [address] [place] [address] [place] [address] FAX: [phone] OFFICE VISIT PHYSICAL MEDICINE REHABILITATION PROGRESS NOTE [...] is now acutely worse. She indicates that massiel garcia feels popping and grinding within the shoulder [...] once shoulder pain is better controlled, may furth er investigate this and look into treating [...] Jr, MD GEM / PAP JOB #: [id number] cc: MD Matt Conde MD Tdocumented in this encounter Miscellaneous Notes Addendum Note - Gael Adam MD - 12/24/2013 2:57 PM PDT Addended by: GAEL ADAM on : 12/24/2013 14:57 Modules accepted: Orders documented in this encounter Plan of Treatment [...] + | MISCELLANEOUS LAB | | | [phone] | + +---------+ + + | MISCELANIOUS LAB | | | [phone] | + +---------+ + + documented in [...]
--- OUTSIDE RECORDS SUMMARY | ~2020-01-06 | XMS | Encounter Summary ---
Demographics + + + | Address | [address] | | | [place] [address] | + + + | Home Phone [...] Team Providers + +------+ + | Care Heading Repairer Name | Role | Phone | [...]
--- OUTSIDE RECORDS SUMMARY | ~2020-01-06 | XMS | Clinical Summary ---
Demographics + + + | Address | [address] | | | [place] [address] | + + + | Home Phone | | + + + | Preferred Language | Unknown | + + + | Marital Status | Single | + + + | Anglican Affiliation | Unknown | + + + [...] Team Providers + +------+ + | Care Tractor Sweeper Driver Name | Role | Phone | + +------+ + | Margie Gonzalez PA-C | PCP | | + +------+ + Source Comments KARINA is fully live on both [facility] and [facility] Allergies + + + + + + [...] on file | | + + + Last Filed Vital Signs + [...] Health Maintenance | Due Date | Last | Comments | | | | Done | | + + + + + | COLONOSCOPY | | | | | | 0 | | | + + + + + | CT COLONOGRAPHY | | | | | | 0 | | | + + + + + | Colorectal Cancer | | | | | Screening | 0 | | | + + + + + | FECAL IMMUNOCHEMICAL | | | | | TEST (FIT) | 0 | | | + + + + + | FIT DNA (Cologuard) | | | | | | 0 | | | + + + + + | SIGMOIDOSCOPY | | | | | | 0 | | | + + + + + | Pneumococcal | | | | | vaccination (1 of 1 | 5 | | | | - PPSV23) | | | | + + + + + | Influenza (Flu) | | 01/25/20 | | | vaccination (#1) | 0 | 18, | | | | | 02/15/20 | | | | | 17, | | | | | 03/11/20 | | | | | 14, | | | | | Addition | | | | | al | | | | | history | | | | | exists [...] [place] OF [place] | BLUE | [id number] | | [phone] | [address] | [address] | | | CROSS | | [phone] | [phone] | [phone] | | | | [place] | | esent | | [place], | | | | [place] | | | | [place] [address] | | + +--------+ +--------+ + +--------+ | MEDICARE | MEDICA | [id number] | 10/22/19 | [phone] | [address] | Medica | | | RE A & | | 15-Pre | 1 | [address] | re | | | B | | sent | | [place] | | | | | | | | [address] | | + +--------+ +--------+ + +--------+ + +--------+ +--------+ + + | Guarantor Name | Accoun | Relation to | Date | Phone | Billing Address | | | t Type | Patient | of | | | | | | | | | | + +--------+ +--------+ + + | PulseJudi | Person | Self [birth year] | [address] | | | al/Fam | | 1951 | [phone] | [address] [place], [place] | | | christian | | | 6 (Home) | [address] | | | | | | [phone] | | | | | | | 5 (Work) | | + +--------+ +--------+ + + | Judi Benitez | Antonieta | Self | [birth year] | # | | | l | | 1951 | [phone] | [address] [place], [place] | | | [place] | | | 6 (Home) | [address] | | | g | | | [phone] | | | | | | | 5 (Work) | | + +--------+ +--------+ + +"
--- OUTSIDE RECORDS SUMMARY | ~2020-01-06 | XMS | Encounter Summary ---
Demographics + + + | Address | [address] | | | [place] [address] | + + + | Home Phone | | + + + | Preferred Language | Unknown | + + + | Marital Status | Single | + + + | Pentecostal Affiliation | Unknown | + + + | Race | White | + + + | Ethnic Group | Other Race | + + + Author + + + | Author | [facility] | + + + | Organization | [facility] | + + + | Address | Unknown | + + + | Phone | Unavailable | + + + Support + + +---------+ + | Name | Relationship | Address | Phone | + + +---------+ + | Karen Unknown | ECON | Unknown | | + + +---------+ + Care Team Providers + +------+ + | Care Painting Department Supervisor Name | Role | Phone | + +------+ + | Margie Gonzalez PA-C | PCP | | + +------+ + Reason for Visit + + + | Reason | Comments | + + + | Diabetes mellitus | | | type 2 | | + + + | Hallucinations | | + + + Encounter Details +--------+ + + + + | Date | Type | Department | Care Team | Description | +--------+ + + + + | 05/31/ | SNF Care | General Internal | Rosa Orozco, | Diabetes mellitus | | 2019 | Visit | Medicine at Offsite | [place] [address] | type 2; | | | | [address] | [address] | Hallucinations | | | | [place], | [place], [place] | | | | | [place] [address] | [address] | | | | | [phone] | [phone] | | | | | | | [...] + + + | Blood Pressure | 142/58 | 09/19/2018 3:43 PM | | | | | PDT | | + + + + + | Pulse | 62 | 09/19/2018 3:43 PM | | | | | PDT | | + + + + + | Temperature | 36.5 C (97.7 F) | 09/19/2018 3:43 PM | | | | | PDT | | + + + + + | Respiratory Rate | 16 | 09/19/2018 3:43 PM | | | | | PDT | | + + + + + | Oxygen Saturation | - | - | | + + + + + | Inhaled Oxygen | - | - | | | Concentration | | | | + + + + + | Weight | 55.6 kg (122 lb 9.6 | 09/19/2018 3:43 PM | | | | oz) | PDT | | + + + + + | Height | - | - | | + + + + + | Body Mass Index | - | - | | + + + + + documented in this encounter Progress Notes Rosa Orozco PA - 09/19/2018 11:00 AM PDTFormatting of this note might be different fro m the original. [facility] Facility Follow-Up: Jose Haile Lianne Benitez is a 67 y.o. female with a PMHx significant for CAD, Mitral valve insuffic iency, HFrEF, PAD, cerebrovascular disease (?), tobacco abuse, hypothyroidism, htn, sarcoid osis, peripheral neuropathy, DM2, dysphagia, falls, and depression/anxiety. Patient reports she has not had a symptomatic episode of hypoglycemia in the last 48hrs. Susy garcia did still have a strong desire to eat a sweet snack 2 nights ago due to fear of becoming h ypoglycemic. She was doing this regularly at home because she was routinely getting hypoglyc emic overnight or in AM when dosing her insulin. Her appetite remains low, she is trying to eat more nutritious food (typically eating a diet full of sweets at home). She would be open to meal replacement drinks BID-TID but it fearful this would cause her to be so full she wo uldn't eat regular meals. She is very concerned about where her purse, keys, and blue jeans are. She thinks they were lost or stolen. Gwendolyn believes she was in room #314 before her current room and maybe they are there. When told she has never been another room she vehemently disagrees, "I know I was there, I have a text to my daughter to prove it." She said she saw "the buzzing necklace" w hen she was at her CTS appt, the provider told her it wasn't there and they didn't hear it. She has had only one hallucinations in the last 48hr. Patient's Medications New Prescriptions No medications on [...] 1 capsule by mouth once daily . FERROUS SULFATE 325 MG TOTAL SALT (65 MG ELEMENTAL) ORAL TABLET Take 1 tablet by mouth two times daily. FUROSEMIDE 40 MG ORAL TABLET Take 40 mg by mouth once daily. INSULIN LISPRO (HUMALOG U-100 INSULIN) 100 UNIT/ML SUBCUTANEOUS SOLUTION Inject 2 Units under the skin (SUBC) three times daily before meals. Give 10-15 min before eating. HOLD if patient NOT eating or CBG<100 INSULIN LISPRO (HUMALOG U-100 INSULIN) 100 UNIT/ML [...] 20 mEq by mouth onc e daily. RIFAXIMIN 550 MG ORAL TABLET Take 1 tablet by mouth two times daily. Modified Medications Modified Medication Previous Medication ATORVASTATIN 10 MG ORAL TABLET atorvastatin 80 mg oral tablet Take 1 tablet by mouth once daily. Take 80 mg by mouth once daily. INSULIN GLARGINE U-300 CONC (TOUJEO SOLOSTAR U-300 INSULIN) 300 UNIT/ML (1.5 ML) SUBCUTANE OUS INSULIN PEN insulin glargine U-300 conc (TOUJEO SOLOSTAR U-300 INSULIN) 300 unit/mL (1.5 mL) subcutaneous insulin pen 16 Units by Intramuscular/Subcutaneous route once daily at bedtime. 18 Units by Intr amuscular/Subcutaneous route once daily at bedtime. Discontinued Medications No medications on file Allergies Allergen Reactions Oxycodone Pruritus Oxycontin intolarant: Oxycodone tolerates. Oxycontin intolarant: Oxycodone tolerates. Physical Exam: Vitals: 09/19/18 1543 BP: 142/58 Pulse: 62 Resp: 16 Temp: 36.5 C (97.7 F) Weight: 55.6 kg (122 lb 9.6 oz) Wt Readings from Last 3 Encounters: 09/19/18 55.6 kg (122 lb 9.6 oz) 09/17/18 55.2 kg (121 lb 12.8 oz) 09/13/18 56.2 kg (123 lb 14.4 oz) General: No acute distress, pt is a 67 y.o. female appearing stated age Mental Status: Alert Skin: Warm, dry Neuro: No gross focal CN deficits appreciated, good attention, complex VH/AH today but not currently Psych: flat affect, more cheerful compared to previous visit CBGs AM 262 90 LUNCH 120 117 DINNER 238 148 HS 157 180 *patient reports eating sweats the night of Assessment and Plan: (E11.69, Z79.4) Type 2 diabetes mellitus with other specified complication, with long-term current use of insulin ([facility]) (primary encounter diagnosis) Patient reported to have frequent severe hypoglycemia on home regimen prior to hospitalizat ion and was therefore not giving herself her basal insulin or overcompensating with high int natan of sweets to avoid lows. She was having CBGs 160-250s at home without therapy per report . D/c'd from hospital on home regimen and had repeated CBGs in low 40s. Insulin adjusted and CBGs now much improved, meeting goal 100-200s, no further life threatening hypoglycemic duong nts. CBG dropped from 180 HS to 90 AM fasting, suggesting basal dosing remains too high. - given frailty, lenient CBG goals 100 to ~250s at this time - continue metformin 500mg BID (home dose) - Glargine (toujeo) reduce from 18U to 16U daily in PM - Lispro 2U with meals, hold if patient not eating or if CBG <100 - Lispro SSI 1U for CBG 200-260, 2U for 261-320, 3U for 321-380, 4U for 381-440 - CBG QID before meals and HS - Give snack if HS CBG <150 (F32.9) Depression, unspecified depression type (K72.00) Acute hepatic encephalopathy, improving (G93.41) Acute metabolic encephalopathy, improving (R44.3) Hallucinations, complex (F22) Delusion (HCC) Patient with good attention today. Hallucinations persist but to less frequent degree. She has ongoing delusion/misperception of being in this building in a different room before and is currently concerned her purse is lost or stolen. Unclear if she had underlying hallucinat ions/delusions prior to surgery. - continue to monitor - staff to encourage normal ozqly-mrlj-irjnu, orientation, OOB activity - avoid deliriogenic medications - continue home duloxetine 60mg daily - staff and family continue to look for purse/belongings (not checked in with these belongi ngs at admission to SNF, was reportedly not check-in during hospitalization and not in lost and found with [employer]) Rosa Orozco PA-C [facility] Division of Internal Medicine and Geriatrics documented in this en counter Plan of Treatment Not on filedocumented as of this encounter Visit Diagnoses + + | Diagnosis | + + | Type 2 diabetes mellitus with other specified complication, with long-term current use | | of insulin (HCC) - Primary | + + | Depression, unspecified depression type | + + | Acute hepatic encephalopathy Hepatic encephalopathy | + + | Acute metabolic encephalopathy | + + | Hallucinations | + + | Delusion (HCC) Unspecified paranoid state | + + documented in this encounter
--- OUTSIDE RECORDS SUMMARY | ~2020-01-06 | XMS | Encounter Summary ---
Demographics + + + | Address | [address] | | | [place] [address] | + + + | Home Phone [...] + + + | Author | [facility] | + + + | Organization | [facility] | + + + | Address | Unknown | + + + | Phone | Unavailable | + + + Support + + +---------+ + | Name | Relationship | Address | Phone | + + +---------+ + | Karen Unknown | ECON | Unknown | | + + +---------+ + Care Team Providers + +------+ + | Care Space Sciences Director Name | Role | Phone | + +------+ + | Unknown | PCP | Unavailable | + +------+ + Reason for Visit + +--------+ + | Reason | Onset | Comments | | | Date | | + +--------+ + | [facility] | 09/15/ | hypoglycemia(DM) and CXR | | Nursing Facility | 2019 | | + +--------+ + Encounter Details +--------+ + + + + | Date | Type | Department | Care Team | Description | +--------+ + + + + | 09/15/ | Telephone | General Internal | Ronald Eldridge | [facility] | | 2019 | | [facility] | MD Macie [address] | Nursing Facility | | | | [address] [facility] | [address] [address] | (hypoglycemia(DM) | | | | [place], | [place], [place] | and CXR ) | | | | [place] [address] | [address] | | | | | [phone] | [phone] | | | | | | | [...] this encounter Miscellaneous Notes Telephone Encounter - Ronald Eldridge MD - 09/15/2018 1:04 PM PDTCoordination of car jose note: Jose Abdalla Patient appropriately sent to [facility] ED early this morning per darci OBRIEN recs. I talked to RNs this morning when I saw she was at [facility]. She had cbg of 49 when she arrived late on , I was still there and we got her up with juice and glucagon. Only on glargine (50 u nits qhs) and metformin. I dropped her glargine 10 points, and her am cbg yesterday was 79 so I thought she would be ok. Early this am, cbg in 40s and RNs used glucagon and gave her some po, cbg initially came up but then sugars dropped again < 70 and symptomatic and no more glucagon - sent to ED. Called RNs and pt just arrived from ED just before 1pm. No order changes. Waiting on note from ED. Review labs look stable other than initial lows. I noted CXR, which I hadn't seen - small R apical pneumothorax, not noted on previous - I called ED and spoke with discharging MD and he pointed out that was 09/13. He looked at [facility] ball and saw the plan for f/u CXR and labs prior to CT surgery visit 09/19, but nothing about pneumothorax being noted. Last paper notes I had were from 09/12. ASSESSMENT/PLAN: DM - hypoglycemia DC'd from hospital on increased glargine 50units, I dec to 40 units on admit. Still went l ow last night. Not on correction or sliding scale. Only on metformin 500mg bid and no renal insufficiency. Plan: I am going to dec insulin glargine to 30 units tonight. Bedtime snack. R apical pneumothorax No cp or sob when I saw her 09/13. Her CT surgeon isn't on today, but has a covering provid er, unfortunately they may not know pt or plan either. Plan: Repeat CXR today - staff to call me w result Put on O2 by NC 1L/min, may increase to 2L to keep SAO2 > 90% Consider checking w CT surgery after result. CXR - no pneumothorax noted, reassuring. Left lower lung infiltrate. On recent CXRs tiny left pleural effusion and left basilar atelectasis noted. Pt w/o cough or fever so doubt arita spect this is overreading. If develops sxs of pneumonia will treat. Chris Eldridge MD Senior Project Manager of Internal Medicine [facility] documented in th is encounter Plan of Treatment Not on filedocumented as of this encounter Visit Diagnoses Not on filedocumented in this encounter"
--- OUTSIDE RECORDS SUMMARY | ~2020-01-06 | XMS | Encounter Summary ---
Demographics + + + | Address | [address] | | | [place] [address] | + + + | Home Phone | | + + + | Preferred Language | Unknown | + + + | Marital Status | Single | + + + | Zoroastrianism Affiliation | 1013 | + + + | Race | White | + + + | Ethnic Group | or | + + + Author + + + | Author | [facility] | | | and [place] | + + + | Organization | [facility] [...] Team Providers + +------+ + | Care Service Station Console Operator Name | Role | Phone | + +------+ + | Margie Gonzalez | PCP | | + +------+ + Encounter Details +--------+ + + + + | Date | Type | Department | Care Team | Description | +--------+ + + + + | 03// | Orders Only | [facility] | Margie Gonzalez, | | | 2017 | | CONVERSION [address] | [address] | | | | | [place] [address] | [place] | | | | | [place], [place] | [address] | | | | | [address] | [phone] | | | | | [phone] | | | +--------+ + + + [...] TR Vmax: 2.57 m/s | | | Activity Therapy Teacher: Authenticated by: Cliff Mercedes Report Date/Time: | | | 06-27-2017 19:30:24 | | + + + + + | Procedure Note | + + | Jesu Lopez Conversion - 12/12/2018 3:29 PM PDT Patient Name: Luis Enrique Benitez of | | : 1950 Performing Physician: Cliff | | [facility] INDICATIONS------ | | -----Abnormal EKG CONCLUSIONS 1. [...] cmLVIDd: 5.22 cmLVPWd: 0.99 cmLVOT Area: 2.98 [id number] Diam: 1.95 cm%FS: | | 19.77 %EF(Teich): [...] mlLAESV Index (A-L): 43.25 ml/m2LAAs A2C: 21.85 [id number] | | A-L A2C: 78.82 mlLALs A2C: 5.14 cmLAAs A4C: 18.83 [id number] A-L A4C: 59.67 mlLALs | | A4C: 5.04 cmRAAs: 11.34 [id number] A-L: 26.19 mlRAESV MOD: 27.03 mlRALs: 4.17 | | cmAo Diam: 3.17 cmLA Diam: 4.26 cmLA/Ao: 1.34TAPSE: 2.26 cmAV maxP.93 | | mmHgAV meanP.84 mmHgAV Vmax: 1.49 m/Brittani Vmean: 1.16 m/Brittani VTI: 31.58 cmAVA | | Vmax: 1.70 cm2AVA (VTI): 1.59 [id number] Vmax: 0.00 cm2/m2AVAI (VTI): 0.00 | | [...] 1.21MV PHT: 62.03 msMVA By PHT: 3.54 ge6Ubkwzq e': 0.05 m/sSeptal E/e': | | 22.77Lateral e': 0.05 m/sLateral E/e': 22.35P Vein D: 0.74 m/sP Vein S/D Ratio: | | 0.46P Vein S: 0.34 m/sPV maxP.71 mmHgPV Vmax: 0.82 m/sRAP: 5 mmHgRVSP: | | 31.49 mmHgTR maxP.49 mmHgTR Vmax: 2.57 m/s Activity Therapy Teacher:Authenticated by: | | Cliff Hamiltonuc medical centerReport Date/Time: 06-27-2017 19:30:24 IMPRESSION: 1. The left [...] |TR Vmax: 2.57 m/s | | | |Activity Therapy Teacher: | |Authenticated by: Cliff Mercedes | |Report [...]
--- OUTSIDE RECORDS SUMMARY | ~2020-01-06 | XMS | Encounter Summary ---
Demographics + + + | Address | [address] | | | [place] [address] | + + + | Home Phone | | + + + | Preferred Language | Unknown | + + + | Marital Status | Single | + + + | Druze Affiliation | 1013 | + + + | Race | White | + + + | Ethnic Group | or | + + + Author + + + | Author | [facility] | | | and [place] | + + + | Organization | [facility] | | | and [place] | [...] Team Providers + +------+ + | Care Crop Or Livestock Tenant Farmer Name | Role | Phone | + +------+ + | Margie Gonzalez | PCP | | + +------+ + Encounter Details +--------+ + + + + | Date | Type | Department | Care Team | Description | +--------+ + + + + | 10/09/ | Abstract | [facility] [place] | Bubba Maxwell | Heart valve replaced | | 2019 | | CARDIOLOGY [address] | MD Yimi [address] | | | | | [place], | [address] [place] | | | | | [place] [address] | [place] [address] | | | | | [phone] | [phone] | | | | | | | [...] | EXTERNAL LAB: BUN | Routin | 09/26/2018 | | Results [...] + | CBC WITH | Routin | 09/26/2018 | | [...] Blood | + + External Lab: BUN (09/26/2018) + +-------+ + + + | [...]
--- OUTSIDE RECORDS SUMMARY | ~2020-01-06 | XMS | Encounter Summary ---
Demographics + + + | Address | [address] | | | [place] [address] | + + + | Home Phone [...] + + + | Author | [facility] | | | and [place] | + + + | Organization | [facility] | | [...] Providers + +------+ + | Care Director Process Name | Role | Phone | + +------+ + | Matt Kinney MD | PCP | | + +------+ + Encounter Details +--------+ + + + + | Date | Type | Department | Care Team | Description | +--------+ + + + + | 12/24/ | Hospital | [facility] | Gael Adam, | Right shoulder pain; | | 2013 | Encounter | MED CTR XRAY [address] | MD [address] | Right rotator cuff | | | | [place] | [place], [place] | tear | | | | [place] [address] | [address] | | | | | [phone] | | | +--------+ + + + [...] + | MISCELLANEOUS LAB | | | [phone] | + +---------+ + + | MISCELANIOUS LAB | | | [phone] | + +---------+ + + documented in this encounter Visit Diagnoses + + | Diagnosis | + + | Right shoulder pain Pain in joint, shoulder region | + + | Right rotator cuff tear Rotator cuff (capsule) sprain | + + documented in this encounter"
--- OUTSIDE RECORDS SUMMARY | ~2020-01-06 | XMS | Encounter Summary ---
Demographics + + + | Address | [address] | | | [place] [address] | + + + | Home Phone [...] + + + | Author | [facility] | | | and [place] | + + + | Organization | [facility] | | | and [...] Providers + +------+ + | Care Associate Professor Of History Name | Role | Phone | + +------+ + | Margie Gonzalez | PCP | | + +------+ + Encounter Details +--------+ + + + + | Date | Type | Department | Care Team | Description | +--------+ + + + + | 11/14/ | Hospital | [facility] | Conversion | Pain | | 2018 | Encounter | CONVERSION [address] | Transaction, | | | | | [address] | Provider Unknown | | | | | [place], [place] | [phone] | | | | | [address] | | | | | | [phone] | | | +--------+ + + + [...] | 0 | | | | (TRACIE [place]) | under the skin | | | [...] Note | + + | Jesu Lopez Marlon - 12/11/2018 3:43 PM PDT This is a non-reportable procedure | | without a radiologist report and isused for image storage only | + + documented in this encounter Visit Diagnoses + + | Diagnosis | + + | Pain Generalized pain | + + documented in this encounter"
--- OUTSIDE RECORDS SUMMARY | ~2020-01-06 | XMS | Encounter Summary ---
Demographics + + + | Address | [address] | | | [place] [address] | + + + | Home Phone [...] Organization | [facility] | | | and [place] [...] Team Providers + +------+ + | Care Coordinator Volunteer Services Name | Role | Phone | + [...] | | | [address] [place] | [place] [address] | | | | | [place] [address] | | | | | | [phone] | | | +--------+ + + + [...] +--------+ + + + | XR CHEST 1 VIEW | Routin | 07/18/2017 | | Results for this | | | e | 12:00 AM | | procedure are in the | | | | PDT | | results section. | + +--------+ + + + documented in this encounter Results XR Chest 1 Vw (07/18/2017 12:00 AM PDT) + + | Specimen | [...]
--- OUTSIDE RECORDS SUMMARY | ~2020-01-06 | XMS | Encounter Summary ---
Demographics + + + | Address | [address] | | | [place] [address] | + + + | Home Phone | | + + + | Preferred Language | Unknown | + + + | Marital Status | Single | + + + | Synagogue Affiliation | 1013 | + + + | Race | White | + + + | Ethnic Group | or | + + + Author + + + | Author | [facility] | | | and [place] | + + + | Organization | [facility] | | | and [place] | [...] Team Providers + +------+ + | Care Pet Care Attendant Name | Role | Phone | + +------+ + | Margie Gonzalez | PCP | | + +------+ + Reason for Visit + +--------+ + | Reason | Onset | Comments | | | Date | | + +--------+ + | Medication Refill | 07/17/ | | | | 2018 | | + +--------+ + Encounter Details +--------+--------+ + + + | Date | Type | Department | Care Team | Description | +--------+--------+ + + + | 07/17/ | Refill | [facility] [place] | Joseph Aranda, | Medication Refill | | 2018 | | PULMONARY [address] | MD [address] | | | | | [place], | [place] [address] | | | | | [place] [address] | [phone] | | | | | [phone] | | | +--------+--------+ + + + [...]
--- OUTSIDE RECORDS SUMMARY | ~2020-01-06 | XMS | Encounter Summary ---
Demographics + + + | Address | [address] | | | [place] [address] | + + + | Home Phone | | + + + | Preferred Language | Unknown | + + + | Marital Status | Single | + + + | Mandaeism Affiliation | Unknown | + + + [...] Team Providers + +------+ + | Care Finisher Merchant Products Name | Role | Phone | + [...]
--- OUTSIDE RECORDS SUMMARY | ~2020-01-06 | XMS | Encounter Summary ---
Demographics + + + | Address | [address] | | | [place] [address] | + + + | Home Phone [...] | [facility] | | | and [place] | + + + | Organization | [facility] | | | and [place] [...] Team Providers + +------+ + | Care Carbon Cleaner Name | Role | Phone | [...] 2018 | | CARDIOLOGY [address] | D, RN | artery, unspecified | | | | [address] [place], | | laterality (Primary | | | | [place] [address] | | Dx); Coronary artery | | | | [phone] | | disease, angina | | | | | | presence | | | | | | unspecified, | | | | | | unspecified vessel | | | | | | or lesion type, | | | | | | unspecified whether | | | | | | [place] or | | | | | | [...] whether | | | | | | [place] or | | | | | | [...] whether | | | | | | [place] or | | | | | | transplanted heart | | + +------+--------+ + + documented as of this encounter Visit Diagnoses + + | Diagnosis | + + | Stenosis of carotid artery, unspecified laterality - Primary | + + | Coronary artery disease, angina presence unspecified, unspecified vessel or lesion | | type, unspecified whether [place] or transplanted heart | + + documented in this encounter"
--- OUTSIDE RECORDS SUMMARY | ~2020-01-06 | XMS | Encounter Summary ---
Demographics + + + | Address | [address] | | | [place] [address] | + + + | Home Phone [...] Author | [facility] | | | and [place] | + + + | Organization | [facility] | | [...] Team Providers + +------+ + | Care Skiving Machine Operator Name | Role | Phone [...] | [address] | [address] | | | | | stenosis of | [place], [place] | St [place] | | | | | spinal canal | [address] | [place], [place] | | | | | [place] | Phone: | [phone] Phone: | | | | | stenosis of | [phone] | [phone] | | | | | cervical | Fax: | Fax: | | | | | region | [phone] | [phone] | | | | | Cervical | [...] | | | | | address | [place], [place] | | | | | | | [address] Phone: | | | | | | | [phone] | | | | | | | Fax: | | | | | | | [phone] | +--------+ + + + + + Encounter Details +--------+---------+ + + + | Date | Type | Department | Care Team | Description | +--------+---------+ + + + | 05/28/ | Office | [facility] | Layton Knapp, | Cervical spondylosis | | 2015 | Visit | NEUROSURGERY [address] | DO [address] | (Primary Dx); | | | | [address] | [address] [place], [place] | Cervical stenosis of | | | | [place], [place] | [address] | spinal canal; | | | | [address] | | Foram[place] stenosis | | | | [phone] | | of cervical region; | | [...] - 05/28/2014 4:46 PM PSTPlease follow-up with carey xavier primary care physician for preoperative clearance. Please follow-up with Dr. Maxwell for cardiac clearance. Please present for surgery when scheduled. documented in this encounter Progress Notes Layton Knapp DO - 05/28/2014 4:46 PM PSTFormatting of this note might be different fro m the original. Layton Knapp DO [address] [facility], [address] [place] [address] FAX: NEUROSURGERY HISTORY AND PHYSICAL EXAMINATION CHIEF [...] History Procedure Date Lymph node biopsy 1971 [place] Hysterectomy 1975 [place] Rotator cuff repair CURRENT MEDICATIONS: Current Outpatient [...] has no apparent deficits with short or half-way memory. CRANIAL NERVES: II: Acuity is intact. [...] Intrinsics 4+ 4 Ulnar Intrinsics 4+ 4 Chefs Strength 4+ 4 Hip Flexion 5 5 [...]
--- OUTSIDE RECORDS SUMMARY | ~2020-01-06 | XMS | Clinical Summary ---
Demographics + + + | Address | [address] | | | [place] [address] | + + + | Home Phone [...] Organization | [facility] [...] Team Providers + +------+ + | Care Card Decorator Name | Role | Phone | + +------+ + | Margie Gonzalez | PCP | | + +------+ + Allergies + + + + + + | Active Allergy | Reactions | Severity | Noted | Comments | | | | | Date | | + + + + + + | Oxycodone | Itching | High | 07/22/19 | Oxycontin | [...] | 05/3 | | Activ | | (TRACIE MIDDLE[place]) | under the skin | | | [...] Take 1 tablet by | 90 | 0 | 06 | | Activ | | (LIPITOR) 40 mg | mouth once daily | tablet | | 8/20 | | e | | tablet | | | | 20 | | | + + + +---------+------+------+-------+ [...] | + +---+ + + | Overview: [facility] 11/13/2017, Proximally occluded dominant RCA | | [...] Vitamin D deficiency | | + +---+ Family History + + +------+ + | [...] | + + + + + | Medication | | | | | Management | 0 | | | + + [...] | | | | | Pneumococcal 65+ (1 | 5 | | | | of 1 - PPSV23) | | | | + + + + + | Med Mgmt: TSH | | 06/11/19 | | | | 6 | 15 | | + + + + + | Hemoglobin A1c | | 01/15/20 | | | Screening | 9 | 19, | | | | | 06/22/19 | | | | | 18, | | | | | 06/11/19 | | | | | 15 | | + + + + + | Med Mgmt: HBA1C | | 01/15/20 | | | | 0 | 19, | | | | | 06/22/19 | | | | | 18, | | | | | 06/11/19 | | | | | 15 | | + + + + + | Vaccine: Influenza | | 02/19/20 | | | (#1) | 0 | 19, | | | | | 01/25/20 | | | | | 18, | | | | | 02/15/20 | | | | | 17, | | | | | Addition | | | | | al | | | | | history | | | | | exists | | + + + + + | Med Mgmt: Cr | | 01/15/20 | | | | 0 | 19, | | | | | 01/15/20 | | | | | 19, | | | | | 09/27/19 | | | | | 19, | | | | | Addition | | | | | al | | | | | history | | | | | exists | | + + + + + | Med Mgmt: K | | 01/15/20 | | | | 0 | 19, | | | | | 01/15/20 | | | | | 19, | | | | | 09/27/19 | | | | | 19, | | | | | Addition | | | | | al | | | | | history | | | | | exists | | + + + + + | Med Mgmt: eGFR | | 01/15/20 | | | | 0 | 19, | | | | | 01/15/20 | | | | | 19, | | | | | 09/27/19 | | | | | 19, | | | | | Addition | [...] +--------+ +---------+--------+ | BCBS | BCBS | [id number] | | | | PPO | | | FEDERA | | 017-Pr | | | | | | L FEP | | esent | | | | + +--------+ +--------+ +---------+--------+ | MEDICARE | MEDICA | [id number] | 10/22/19 | [phone] | | Medica | | | RE | | 15-Pre | 5 | | re | | | PART A | | sent | | | | | | AND B | | | | | | + +--------+ +--------+ +---------+--------+ | AETNA SENIOR | AMERIC | [id number] | 04/23/19 | [phone] | | Indemn [...] | + +--------+ +--------+ + + | Pulse,Etelvina Jean | Person | Self [birth year] | [address] | | | al/Fam | | 1951 | [phone] | [place] [address] | | | christian | | | 4 (Home) | | + +--------+ +--------+ + + | Etelvina Benitez | Person | Self | [birth year] | | [address] | | | al/Fam | | 1951 | [phone] | [place] [address] | | | christian | | | 4 (Home) | | + +--------+ +--------+ + + Advance Directives + + + + + | Type | Date Recorded | Patient | Explanation | | | | Chief Guard | | + + + + + | Power of | | | | | Environmental Health Officer | | | | + + + + + | Advance | 05/28/2014 2:20 | | | | Directive | PM | | | + + + + +
--- OUTSIDE RECORDS SUMMARY | ~2020-01-06 | XMS | Encounter Summary ---
Demographics + + + | Address | [address] | | | [place] [address] | + + + | Home Phone | | + + + | Preferred Language | Unknown | + + + | Marital Status | Single | + + + | Samaritan Affiliation | Unknown | + + + [...] Team Providers + +------+ + | Care Gravity Prospecting Operator Helper Name | Role | Phone | + +------+ + | aMrgie Gonzalez PA-C PCP | | + +------+ [...]
--- OUTSIDE RECORDS SUMMARY | ~2020-01-06 | XMS | Encounter Summary ---
Demographics + + + | Address | [address] | | | [place] [address] | + + + | Home Phone [...] Team Providers + +------+ + | Care Core Maker Helper Name | Role | Phone | + +------+ + | Margie Gonzalez PA-C | PCP | | + +------+ + Reason for Visit + +--------+ + | Reason | Onset | Comments | | | Date | | + +--------+ + | Care Coordination | 09/19/ | | | | 2018 | | + +--------+ + Encounter Details +--------+ + + + + | Date | Type | Department | Care Team | Description | +--------+ + + + + | 05/30/ | Documentati | General Internal | Bharti Malik, | Care Coordination | | 2019 | on | Medicine at Offsite | [address] | | | | | [address] | [address] | | | | | [place], | [place], [place] | | | | | [place] [address] | [address] | | | | | [phone] | [phone] | | | | | | | [...] Encounter - Bharti Malik MD - 09/19/2018 6:35 PM PDTReceived instructions in AVS packet for this patient from her Cardiology team. Recs to d/c vitamin and start on regular MVI Also recs to lower Atorvastatin 80-->10mg, lower Levothyroxine from 125mcg-->100mcg for unc lear reasons (not in AVS but in med list changes). Will change MVI and Atorvastatin but leave LT4 as is given TSH today was 3. documented in this encounter Plan of Treatment Not on filedocumented as of this encounter Visit Diagnoses Not on filedocumented in this encounter"
--- OUTSIDE RECORDS SUMMARY | ~2020-01-06 | XMS | Encounter Summary ---
Demographics + + + | Address | [address] | | | [place] [address] | + + + | Home Phone [...] | Organization | [facility] | | | and [place] [...] Team Providers + +------+ + | Care Autotransfusionist Name | Role | Phone | + +------+ + | Matt Kinney MD | PCP | | + +------+ + Encounter Details +--------+ + + + + | Date | Type | Department | Care Team | Description | +--------+ + + + + | 05/28/ | Abstract | [facility] [place] | Aria Layton Ni, | | | 2014 | | NEUROSURGERY [address] | DO [address] | | | | | [address] | [address] [place], [place] | | | | | [place] | [address] | | | | | [address] | | | | | | [phone] | | | +--------+ + + + [...]
--- OUTSIDE RECORDS SUMMARY | ~2020-01-06 | XMS | Encounter Summary ---
Demographics + + + | Address | [address] | | | [place] [address] | + + + | Home Phone [...] | Organization | [facility] | | | and [place] [...] Team Providers + +------+ + | Care Porcelain Enamel Installer Name | Role | Phone | [...] | | | | Cervical | | [address] | | | | | Spine w wo | | Phone: | | | | | Contrast | | [phone] | | | | | | | Fax: | | | | | | | [phone] | +--------+--------+ + + + + Diagnostic/Screening (Routine) +--------+--------+ + + + + | Status | Reason | Specialty | Diagnoses / | Referred By | Referred To | | | | | Procedures | Contact | Contact | +--------+--------+ + + + + | Closed | | | Diagnoses | Carey, | OP ST | | | | | Tremor | Zen Quijano | BEATRIS | | | | | Incoordinati | MD Need | HOSPITAL | | | | | on Sarcoid | updated | [address] | | | | | Seizure | address | AVE | | | | | ([facility]) | | [place] | | | | | Procedures | | [address] | | | | | MRI Brain w | | Phone: | | | | | wo Contrast | | [phone] | | | | | | | Fax: | | | | | | | [phone] | +--------+--------+ + + + + Evaluate [...] | | sleep | updated | [address] | | | | | apnea) | address | [place] | | | | | | | [address] | | | | | | | [place] | | | | | | | [address] | | | | | | | Phone: | | | | | | | [phone] | | | | | | | Fax: | | | | | | | [phone] | +--------+ + + + + + [...] | | | | | Tremor | [address] | updated | | | | | | [place], | address | | | | | | [place] [address] | | | | | | | Phone: | | | | | | | [phone] | | | | | | | Fax: | | | | | | | [phone] | | +--------+ + + + + + Encounter Details +--------+---------+ + + + | Date | Type | Department | Care Team | Description | +--------+---------+ + + + | 03/18/ | Office | [facility] | Zen Carey | HELLEN (obstructive | | 2013 | Visit | [facility] | MD Macie Need updated | sleep apnea) | | | | [address] [facility], | address | (Primary Dx); | | | | [place] [address] [place] | | Tremor; | | | | [place] [address] | | Incoordination; | | | | [phone] | | Sarcoid; Seizure | | | | | | (HCC) | +--------+---------+ + + + Social [...] the sleep study. But only your [facility] provider can explain the results. He or she will have the report of your sleep study within a week. Then your treatment options can be discussed. [id number] Valerie [facility], [address] [place] [address], [place] [address]. All rights reserve d. This information is not intended as a substitute for professional medical care. Always fo llow your healthcare professional's instructions. documented in this encounter Progress Notes Zen Carey MD - 03/18/2014 2:27 PM PSTFormatting of this note might be differen t from the original. Zen Carey MD [address], [address] [place] [address] Neurology Outpatient New Patient Note Referring Provider: Gael Adam MD [address] [place] [address] Chief Complaint: Chief Complaint Patient presents with [...] feels incoordinated and clumsy at times. 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 She has no trouble falling asleep, but cannot maintain sleep. She wakes up to urinate once nightly and struggles with dry mouth. She does not feel refreshed in the morning and is often very sleepy during the day. She had a sleep study done over 10 years ago in [facility] that apparently showed HELLEN, but she [...] History Procedure Date Lymph node biopsy 1971 [place] Hysterectomy 1975 [place] Rotator cuff repair [...] 25.13 kg/ m2 Neck Circumference: 14 3/8" [place] Sleepiness Scale: 9 General: well developed and [...] Intrinsics 5 5- Ulnar Intrinsics 5 5 Tobacco Flavorer Strength 5- 5- Hip Flexion 5 5 [...] Will order all of the above through [facility] 4) Discussed falls prevention 5) Depending on results of above, may try Sinemet trial. 6) Return to neurology clinic in 1 month. I spent 60 minutes in visitation with Etelvina Benitez today with the majority of time spe nt counselling the patient on her diagnosis, options for her care, and coordinating her care . Electronically signed by: Zen Carey MD, 03/18/2014 14:46Electronically cris d by Zen Carey MD at 03/18/2014 4:04 PM PSTdocumented in this encounter Miscellaneous Notes Miscellaneous - ONBASE SCAN [facility] - 03/18/2014 12:00 AM PST iscellaneous - ONBASE SCAN [facility] - 03/18/2014 12:00 AM PSTEle ctronically signed by Karl Gamino at 03/24/2014 5:01 PM PSTMiscellaneous - ONBASE SCAN [facility] - 03/18/2014 12:00 AM PST d ocumented in this encounter Plan of Treatment + [...] Expires: | | | | | Sarcoid Seizure | 03/18/2015 | | | | | (HCC) | | + +---------+--------+ + + | MRI Cervical Spine w | Imaging | Routin | Tremor | Expected: | | wo Contrast | | e | Incoordination | 03/18/2014, Expires: | | | | | Sarcoid | 03/18/2015 | + +---------+--------+ + + [...]
--- OUTSIDE RECORDS SUMMARY | ~2020-01-06 | XMS | Encounter Summary ---
Demographics + + + | Address | [address] | | | [place] [address] | + + + | Home Phone [...] [facility] | | | and [place] | + + + | Organization | [facility] | | | and [place] [...] Team Providers + +------+ + | Care Cannon Crewmember Name | Role | Phone | + [...] | | | | [address]VE [place], [place] | [address] [place] | artery without | | | | [address] | [place] [address] | mention of cerebral | | | | [phone] | [phone] | infarction (Primary | | | | [...]
--- OUTSIDE RECORDS SUMMARY | ~2020-01-06 | XMS | Encounter Summary ---
Demographics + + + | Address | [address] | | | [place] [address] | + + + | Home Phone [...] Author | [facility] | | | and [place] | + + + | Organization | [facility] | | | and [place] [...] Team Providers + +------+ + | Care Healthcare Architect Name | Role | Phone | + [...] | | Mitral valve | [address] | [address] | | | | | [address] [place] | [place] | | | | | insufficienc | [place], [place] | [place], [place] | | | | | y, | [address] | [address] | | | | | unspecified | Phone: | Phone: | | | | | etiology | [phone] | [phone] | | | | | Essential | Fax: | Fax: | | | | | hypertension | [phone] | [phone] | | | | | Poor | [...] + + | 10/29/ | Office | [facility] | Bubba Maxwell | Heart valve | | 2019 | Visit | MED [facility]ARD[facility]AC | MD Yimi [address] | replaced; Mitral | | | | REHABILITATION [address] [place] | valve insufficiency, | | | | [address] [place] | [place] [address] | unspecified | | | | [place] [address] | [phone] | etiology | | | | [phone] | | | | | | | [...] Whitten RN - 10/29/2018 11:30 AM PDT [facility] [address] [place] [address] Cardiac Rehab Evaluation Date: 10/29/2018 Patient Information [...] confusion and encephalopathy which slowly resolved. Sh e also experienced acute renal insufficiency which has mostly resolved since then. It was r eported that the patient received PRBC transfusion for postoperative anemia. She is being seen by Home Health. She is walking, and she plans to return back to work in at [employer]. Her appetite is poor. She will be seeing a nurse clinical. She continues to abstain from cigaret te smoking. She has been feeling really well for the past few days. She lives in [place] and prefers not to commute to [place]. Cardiac Rehab Phase II Eric atment Plan Exercise: She is walking without any adverse symptoms. She did recently fall and has sore r ibs and knee, but was checked out by a physician Nutrition: Rate Your Plate score is: 42, she has a very poor appetite and likes sugar. She will consult a nurse clinical. Education: Received 1:1 education regarding CAD, medications, post op OHS, diet and exercis e. She also received Krames: Living Well with Heart Disease book. Through conversation, she appears to have good comprehension. Psycho/Social: PHQ-9 score is: 8, she is tired, moves slowly, has no appetite, sleeping poo rly. Denies depression or SI. Her son and daughter in law are staying with her and are suppo rtive. Plan: See nurse clinical. Continue to increase walking gradually. Continue smoking [...]
--- OUTSIDE RECORDS SUMMARY | ~2020-01-06 | XMS | Encounter Summary ---
Demographics + + + | Address | [address] | | | [place] [address] | + + + | Home Phone | | + + + | Preferred Language | Unknown | + + + | Marital Status | Single | + + + | Mandaeism Affiliation | 1013 | + + + | Race | White | + + + | Ethnic Group | or | + + + Author + + + | Author | [facility] | | | and [place] | + + + | Organization | [facility] | | [...] Team Providers + +------+ + | Care Jacquard Loom Heddles Tier Name | Role | Phone | + +------+ + PCP | Unavailable | + +------+ + Reason for Visit +--------+--------+ + | Reason | Onset | Comments | | | Date | | +--------+--------+ + | Other | 03/25/ | Imaging | | | 2011 | | +--------+--------+ + Encounter Details +--------+ + + + + | Date | Type | Department | Care Team | Description | +--------+ + + + + | 03/25/ | Telephone | [facility] | Nestor Nice | Other (Imaging) | | 2011 | | SURGERY [address] | MD Alma, FACS [address] | | | | | [address] [place] | [address] [facility] | | | | | [address] | [place] [address] | | | | | [phone] | [phone] | | | | | | | [...] this encounter Miscellaneous Notes Telephone Encounter - Ita Hall RN - 03/29/2012 12:43 PM PSTFaxed carotid ultrasound order to [facility] Notified patient that this has been done. elephone Encounter - Cierra Gonzalez - 03/25 9:10 AM PSTPatient received notice to have her carotid scan and would like to know if she can have that done in [facility] [place]? Can We call patient to Confirm.?Tequila ctronically signed by Cierra Gonzalez at 03/25/2012 9:49 AM PSTdocumented in this encount er Plan of Treatment Not on filedocumented as of this encounter Visit Diagnoses Not on filedocumented in this encounter"
--- OUTSIDE RECORDS SUMMARY | ~2020-01-06 | XMS | Encounter Summary ---
Demographics + + + | Address | [address] | | | [place] [address] | + + + | Home Phone [...] | Organization | [facility] | | | and [place] [...] Team Providers + +------+ + | Care Functional Architect Name | Role | Phone | [...] | (Primary Dx) | | | | [address] | [place], [place] | | | | | [place], [place] | [address] | | | | | [address] | | | | | | [phone] | | | +--------+ + + + [...] + | 08/26/13 Right L4-L5 and Left L5-K1Itjxxjmmprjgur Epidural Steroid | [facility] | | Injections Diagnosis: Lumbar radiculopathy ICD-9 Code 724.4 | [facility] | | Etelvina Benitez presents to the fluoroscopy suite for [facility] | | fluoroscopically-guided right L4-L5 and [...] PDT 08/26/13Right L4-L5 and Left | | L5-Z8Cdeybizlxznzab Epidural Steroid InjectionsDiagnosis: Lumbar radiculopathyICD-9 Code | [...] [address] | [place] | [phone] | | [facility] | | [address] | | | - IMAGING | | | | + + + + + documented in this encounter Visit Diagnoses + + | Diagnosis | + + | Lumbar radiculopathy - Primary Thoracic or lumbosacral neuritis or radiculitis, | | unspecified | + + documented in this encounter"
--- OUTSIDE RECORDS SUMMARY | ~2020-01-06 | XMS | Encounter Summary ---
Demographics + + + | Address | [address] | | | [place] [address] | + + + | Home Phone [...] + | Author | [facility] | | | and [place] | + + + | Organization | [facility] | | | and [place] [...] Team Providers + +------+ + | Care Milk Wagon Driver Name | Role | Phone | + +------+ + | Matt Kinney MD | PCP | | + +------+ + Reason for Visit +--------+--------+ + | Reason | Onset | Comments | | | Date | | +--------+--------+ + | Other | 03/27/ | labs | | | 2013 | | +--------+--------+ + Encounter Details +--------+ + + + + | Date | Type | Department | Care Team | Description | +--------+ + + + + | 03/27/ | Telephone | [facility] | Evette Lopez | Other (labs) | | 2013 | | NEUROLOGY [facility] | NORAH Mclean | | | | | [address], | | | | | | [address] [place] | | | | | | [place] [address] | | | | | | [phone] | | | +--------+ + + + [...] Telephone Encounter - Evette Lopez RN - 03/27/2014 9:56 AM PSTNo answer, LVLeah infor misty patient that' she needs to go to [facility] and get BUN/Cr drawn before she can have MRIs done because she is diabetic.Electronically signed by Evette Lopez RN at 2013 9:58 AM PSTdocumented in this encounter Plan of Treatment Not on filedocumented as of this encounter Visit Diagnoses Not on filedocumented in this encounter"
--- OUTSIDE RECORDS SUMMARY | ~2020-01-06 | XMS | Encounter Summary ---
Demographics + + + | Address | [address] | | | [place] [address] | + + + | Home Phone [...] Organization | [facility] | | [...] Team Providers + +------+ + | Care Dredging Inspector Name | Role | Phone | + +------+ + | Margie Gonzalez | PCP | | + +------+ + Reason for Visit +--------+--------+ + | Reason | Onset | Comments | | | Date | | +--------+--------+ + | Other | 10/10/ | | | | 2019 | | +--------+--------+ + Encounter Details +--------+ + + + + | Date | Type | Department | Care Team | Description | +--------+ + + + + | 10/10/ | Telephone | [facility] | Bubba Maxwell | Other | | 2019 | | [place] [address] | MD Yimi [address] | | | | | [place], | [address] [place] | | | | | [place] [address] | [place] [address] | | | | | [phone] | [phone] | | | | | | | [...] Telephone Encounter - Julisa Salazar RN - 10/11/2018 3:14 PM Shireen notified and will follow up on Sunday ..........................................Julisa Salazar RN on 10/11/18 at 15:15 elephone Encount er - Trav Acosta RN - 10/10/2018 4:15 PM PDTMessage left for call back. Electronic ally signed by Trav Acosta RN at 10/10/2018 4:15 PM PDTTelephone Encounter - Trav Dorsey nd, RN - 10/10/2018 2:[address] Maxwell: Have patient try holding Losartan until seen on Sunday10/14/18. Message left for call back. elephone Encounter - Trav Acosta RN - 09/22 11:32 AM PDTKristine (daughter) called and stated that patient had valve surgery in [facility] on 09/03/18. For the last 3 days patient has been very dizzy, nauseated, having muscl e weakness and sweating with exertion. BP this morning was 91/65 Pulse 85. Daughter states s he gets very dizzy when standing. Blood sugars have been 80 at night and 120's during the da y. Medication list has been updated. Patient is being seen on 10/14/[address] Maxwell but the y do not want to go the weekend with her feeling like this. Notes printed for Dr Maxwell. Tequila ctronically signed by Trav Acosta RN at 10/10/2018 4:15 PM PDTdocumented in this en counter Plan of Treatment Not on filedocumented as of this encounter Visit Diagnoses Not on filedocumented in this encounter"
--- OUTSIDE RECORDS SUMMARY | ~2020-01-06 | XMS | Encounter Summary ---
Demographics + + + | Address | [address] | | | [place] [address] | + + + | Home Phone [...] [facility] | | [...] Team Providers + +------+ + | Care Cloth Shrinking Machine Operator Name | Role | Phone | + +------+ + | Matt Kinney MD | PCP | | + +------+ + Encounter Details +--------+ + + + + | Date | Type | Department | Care Team | Description | +--------+ + + + + | 03/03/ | Abstract | [facility] | Bubba Maxwell | | | 2014 | | [place] [address] | MD Yimi [address] | | | | | [place], | [address] [place] | | | | | [place] [address] | [place] [address] | | | | | [phone] | | | | | | | [...] | EXTERNAL LAB: BUN | Routin | 06/11/2014 | | Results [...] +--------+ + + + | EXTERNAL LAB: JACQUE | Routin | 06/11/2014 | | Results for this | | | e | | | procedure are in the | | | | | | results section. | + +--------+ + + + | EXTERNAL LAB: IRENE | Routin | 06/11/2014 | | Results [...] [place] | + + External Lab: BUN (06/11/2014) + +-------+ + + + | [...] [place] | + + External Lab: Glucose [...] Resulting Agency Comment | + + | [facility] [place] | + + External Lab: ALT [...] Resulting Agency Comment | + + | [facility] [place] | + + External Lab: AST (06/11/2014) + +-------+ + + + | Component | Value | Ref Range | Performed | Pathologist | | | | | At | Signature | + +-------+ + + + | AST, | 17 | | | | | External | | | | | + +-------+ + + + + + | Resulting Agency Comment | + + | [facility] [place] | + + External Lab: Potassium [...] Resulting Agency Comment | + + | [facility] [place] | + + External Lab: [...] Resulting Agency Comment | + + | [facility] [place] | + + External Lab: [...]
--- OUTSIDE RECORDS SUMMARY | ~2020-01-06 | XMS | Encounter Summary ---
Demographics + + + | Address | [address] | | | [place] [address] | + + + | Home Phone [...] Team Providers + +------+ + | Care Fourdrinier Operator Name | Role | Phone | [...] | | | | | [address] [place], | [place], [place] | | | | | [place] [address] | [address] | | | | | [phone] | [phone] | | | | | | | [...] encounter Progress Notes Rosa Orozco PA - 09/24/2018 1:00 PM PDTFormatting of this note might be different fro ashwini the original. Senior Living Facility Follow-Up: Jose Benitez is a 67 [...] complication, with long-term current use of insulin ([facility]) (primary encounter diagnosis) (E16.2) Hypoglycemia Hx of [...] she is on 1:1, will inquire with FUR REPAIRER to see if she can be cleared for eatin g independently. 30 min spent face to face with patient, >50% spent in counseling. Rosa Orozco PA-C [facility] Division of Internal Medicine and Geriatrics documented in this en counter Miscellaneous Notes Addendum Note - Rosa Orozco PA - 09/24/2018 1:00 PM PDT Addended by: BEBO KAUR on: 09/24/2018 12:56 PM Modules accepted: Orders documented in this encounter [...]
--- OUTSIDE RECORDS SUMMARY | ~2020-01-06 | XMS | Encounter Summary ---
Demographics + + + | Address | [address] | | | [place] [address] | + + + | Home Phone [...] Organization | [facility] | | | and [...] Team Providers + +------+ + | Care Reinforcing Iron And Rebar Workers Name | Role | Phone | + +------+ + | Matt Kinney MD | PCP | | + +------+ + Reason for Visit + +--------+ + | Reason | Onset | Comments | | | Date | | + +--------+ + | Imaging Only | 08/18/ | | | | 2014 | | + +--------+ + Encounter Details +--------+ + + + + | Date | Type | Department | Care Team | Description | +--------+ + + + + | 08/18/ | Telephone | [facility] | Nestor Nice | Imaging Only | | 2014 | | SURGERY [address] | MD Alma, FACS [address] | | | | | [address] [place], [place] | [address] [facility] | | | | | [address] | [place] [address] | | | | | [phone] | [phone] | | | | | | | [...] this encounter Miscellaneous Notes Telephone Encounter - Jae Grayson RN - 08/18/2014 8:16 AM PDTCalled patient to le t her know that Dr. Nice saw her Bilateral VAS carotid duplex and that he would like a foll ow up with a CT angiogram. Patient informed me that she doesn't want to do this as she is mo ving on August 23, to [place]. I tried to get her to go ahead with the imaging so th at if/when she finds a doctor in [place] we can send all of her records [facility] the [facility]. She stated that she has a lot of things to take care of and wants to hold off. She state d that when she gets settled down in her new environment that she would like to get her info rmation. I gave her a couple of options, gave her our phone number so that she can contact u s and also let her know about mychart. She understood and I wished her luck in her endeavors . documented in t his encounter Plan of Treatment Not on filedocumented as of this encounter Visit Diagnoses Not on filedocumented in this encounter"
--- OUTSIDE RECORDS SUMMARY | ~2020-01-06 | XMS | Encounter Summary ---
Demographics + + + | Address | [address] | | | [place] [address] | + + + | Home Phone [...] Team Providers + +------+ + | Care Bead Wire Taper Name | Role | Phone | + [...] + + | 07/16/ | Office | [facility] | Bubba Maxwell | CAD (coronary artery | | 2014 | Visit | CARDIOLOGY [address] | MD Yimi [address] | disease) (Primary | | | | [place], | [address] [place] | Dx); Carotid artery | | | | [place] [address] | [place] [address] | disease (HCC); | | | | [phone] | [phone] | Tobacco use disorder | | | [...] Procedure Laterality Date Lymph node biopsy 1971 [place] Hysterectomy 1975 [place] Rotator cuff repair [...] benefit from consideration of consultation with an public health internship if feasible. Patient also would bene fit [...] made to ensure accuracy; however, inadvertent computerized oceanography professor errors may be pre sent. Electronically signed [...] CAROTID ULTRASOUND 08/04/2014 1:00 PM CLINICAL [facility] | | HISTORY: carotid artery disease, history of endarterectomy | [facility] | | COMPARISON: CAROTID ULTRASOUND MARCH 2011 FINDINGS: [employer], | [facility] | | color Doppler and duplex [...] | + + + + + | [address] | [address] | [place] | [phone] | | [facility] | | [address] | | | - IMAGING | | [...] Etelvina Benitez, (1950) MEDICAL RECORD NUMBER: | [facility] | | [id number] DATE OF PROCEDURE: 07/28/2014 CONTRACT POST OFFICE CLERK: | - IMAGING | | Bubba Maxwell MD, PhD, [facility] PROCEDURES | | | PERFORMED: [...] + + | [address] | [address] | [place] | [phone] | | [facility] | | [address] | | | - IMAGING | | | | + + + + + documented in this encounter Visit Diagnoses + + | Diagnosis | + + | CAD (coronary artery disease) - Primary Coronary atherosclerosis of unspecified type | | of vessel, quechan or graft | + + | Carotid artery disease (HCC) Unspecified disorders of arteries and arterioles | + + | Tobacco use disorder | + + documented in this encounter
--- OUTSIDE RECORDS SUMMARY | ~2020-01-06 | XMS | Encounter Summary ---
Demographics + + + | Address | [address] | | | [place] [address] | + + + | Home Phone [...] + | Organization | [facility] | | | and [...] Team Providers + +------+ + | Care Assembler Latches And Springs Name | Role | Phone | + +------+ + PCP | Unavailable | + +------+ + Encounter Details +--------+ + + + + | Date | Type | Department | Care Team | Description | +--------+ + + + + | 04/11/ | [facility] | [facility] | Nestor Nice | | | 2010 | Encounter | MED CTR XRAY [address] | I, MD, FACS [address] | | | | | [place] | [place] | | | | | [place] [address] | [place] [address] | | | | | [phone] | [phone] | | | | | | | [...] Performed At | + + + | [facility] | [place] | | [address] [facility] | [facility] | | | DIAG IMG | | CAROTID DUPLEX ULTRASOUND [facility] | | | [facility] IMAGING #: | | | BULK INTAKE WORKER: OCTAVIA/RD REASON FOR EXAM: CAROTID STENOSIS, H/O | [...] Transcribed Date/Time: | | | 04/11/2011 16:36 Barback: <Electronically Signed | | | by Boby Masterson MD> 04/12/11 0816 | | + + + + + | Procedure Note | + + | John, Rad Conversion - 05/30/2013 4:26 PM [facility] | | Diagnostic Imaging Department | | [address] [place] [facility] | | | | | | | | | | CAROTID DUPLEX ULTRASOUND | | [facility] | | | | IMAGING #: BULK INTAKE WORKER: OCTAVIA/TRACI | | REASON FOR EXAM: CAROTID STENOSIS, [...] | Transcribed Date/Time: 04/11/2011 16:36 | | Barback: | | <Electronically Signed by Boby Masterson MD> 04/12/11 0816 | + + + +---------+ + + | Performing | Address | City/State/Zipcode | Phone Number | | Organization | | | | + +---------+ + + | [place] | | | | | [facility] | | | | + +---------+ + + documented in this encounter Visit Diagnoses Not on filedocumented in this encounter"
--- OUTSIDE RECORDS SUMMARY | ~2020-01-06 | XMS | Encounter Summary ---
Demographics + + + | Address | [address] | | | [place] [address] | + + + | Home Phone [...] + + + | Author | [facility] | | | and [place] | + + + | Organization | [facility] | | | and [place] [...] Providers + +------+ + | Care Field Marketing Representative Name | Role | Phone | [...] Heart valve | Bubba | [address] | | | | | replaced | MD Yimi | [place], | | | | | Mitral valve | [address] | [place] | | | | | | St [place] | [address] | | | | | insufficienc | [place], [place] | Phone: | | | | | y, | [address] | [phone] | | | | | unspecified | Phone: | Fax: | | | | | etiology | [phone] | [phone] | | | | | Essential | Fax: | | | | | | hypertension | [phone] | | | | | | Poor [...] Heart valve | Bubba | [address] | | | | | replaced | MD Yimi | [place], | | | | | Mitral valve | [address] | [place] | | | | | | St [place] | [address] | | | | | insufficienc | [place], [place] | Phone: | | | | | y, | [address] | [phone] | | | | | unspecified | Phone: | Fax: | | | | | etiology | [phone] | [phone] | | | | | Essential | Fax: | | | | | | hypertension | [phone] | | | | | | Poor [...] + + | 01/15/ | Hospital | [facility] | Bubba Ornelas | Heart valve | | 2019 | Encounter | MED CTR ECHO [address] | MD Yimi [address] | replaced; Mitral | | | | [place] | [address] [place] | valve insufficiency, | | | | [place] [address] | [place] [address] | unspecified | | | | [phone] | [phone] | etiology; Essential | | | | [...] Inject 20 Units | | 0 | 09/20/19 | | | (TRACIE CARYOSTAR) | under the skin | | | [...] | | | | | | n Elliott | | | | | + +--------+ [...] | ETELVINA WIGGINS Room Number Patient Number [id number] Date of | | | Study 01/15/2019 Visit Number [id number] | | | Referring Physician YIMI ORNELAS MD Accession | | | [id number] Waterproofing Mixer CONOR VILLASEÑOR Number | | | Date of 1950 Interpreting | | | YIMI ORNELAS MD | | | 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
--- OUTSIDE RECORDS SUMMARY | ~2020-01-06 | XMS | Encounter Summary ---
Demographics + + + | Address | [address] | | | [place] [address] | + + + | Home Phone [...] | Organization | [facility] | | | and [place] [...] Team Providers + +------+ + | Care Police Officer Name | Role | Phone | [...] PHYSIATRY [address] | MD [address] | | | | | [address] | [place] | | | | | [place], [place] | [address] | | | | | [address] | | | | | | [phone] | | | +--------+--------+ + + + [...]
--- OUTSIDE RECORDS SUMMARY | ~2020-01-06 | XMS | Encounter Summary ---
Demographics + + + | Address | [address] | | | [place] [address] | + + + | Home Phone [...] + | Organization | [facility] | | [...] Team Providers + +------+ + | Care Test Designer Name | Role | Phone | + [...] | | | | | | | DE CATH | | | | | | [...] + + | 07/28/ | Surgery | [facility] | Bubba Maxwell | LEFT HEART CATH | | 2014 | | MED CTR CV INTRA OP | MD Yimi [address] | | | | | [address] | [address] [place] | | | | | [place] | [place], [place] [address] | | | | | [address] | [phone] | | | | | [phone] | | | +--------+---------+ + + + [...] You have a fever over 101F (38.3C). 3427-3366 [employer]. [address] [place] [address]. All righ ts reserved. This information is [...] + documented as of this encounter Progress Etelvina Walker RN - 07/28/2014 9:46 AM PDTRt groin site without bleeding, swelling o r drainage, dressing clean, dry and intact documented in this encounter H&P Notes Bubba Maxwell MD - 07/28/2014 9:51 AM PDTProformerly [facility] SURGICAL INTERIM HISTORY AND PHYSICAL UPDATE Pt. Name/Age/: Etelvinafunmi Benitez 63 y.o. 1950 Date of admission: 07/28/2014 The current H&P was reviewed. The patient was reexamined. Re-evaluation of the patient co nfirms the necessity for the scheduled procedure. No change has occurred in the patient s condition since the H&P was completed less than 30 days ago. Electronically signed by: Bubba Maxwell, 07/28/2014 9:51 [facility]ronically signed by MD vinny Luke 07/28/2014 9:51 AM PDTdocumented in this encounter Procedure Notes Bubba Maxwell MD - 07/28/2014 9:58 AM PDTAssociated Order(s): CV ADULT CARDIAC CA TH DIAG/PCIProcedure(s): CV ADULT CARDIAC CATH DIAG/PCIFormatting of this note might be diff erent from the original. CARDIAC CATHETERIZATION and CORONARY ANGIOGRAPHY PATIENT NAME/: Etelvina Benitez, (1950) DATE OF PROCEDURE: 07/28/2014 LEGAL RECEPTIONIST: Bubba Maxwell MD, PhD, [facility] PROCEDURES PERFORMED: Coronary Angiography Left Heart Catheterization [...] in several sagittal and oblique projections. JL-4, JR-4 and pigt ail diagnostic catheters were used for this procedure. The patient received a total of 1 mg of Versed and 50 mcg of fentanyl intravenously for conscious sedation during the procedure. A total of 85 mL Omnipaque 350 contrast was utilized. The procedure had no immediate comp lications. At the conclusion of the procedure, the sheath was removed and hemostasis obtained with a T R hemostatic band. FINDINGS: Hemodynamics: Ao - 145/54 mm Hg with a mean of 91 mm Hg LV - 145/0 mm Hg LVEDP - 6 mm Hg Left ventriculography: The left ventricular size and function were normal. LVEF is calcul ated at 60%. There is no mitral valve regurgitation noted. Left main artery: The left main artery is a small caliber vessel that bifurcates into the left anterior descending artery and left circumflex artery. Left main artery has mild diffu se disease. Left anterior descending artery: The left anterior descending artery is a small caliber ve ssel that wraps around the apex and gives rise to 2 diagonal branches. The vessel has moder ate diffuse plaquing. It gives rise to 2 diagonal branches. Left circumflex artery: The left circumflex artery is a small caliber vessel that is non d ominant. The vessel has exhibits moderate to severe diffuse disease, with a focal 90% lesi on at its midpoint.. It gives rise to 2 OM branches. Right coronary artery: The right coronary artery is a small caliber vessel that is non dom inant. The vessel has occlusion proximally with moderate left to right collateral flow.. CONCLUSIONS: 1. 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 2. There is a right dominant circulation. 3. Normal LV systolic function. 4. Systemic blood pressure is mildly elevated. 5. There was successful Angio Seal placement to the puncture site in the right femoral otis ry. 6. Will consider patient for possibility of surgical revascularization. Otherwise continue d medical therapy and aggressive risk factor reduction recommended. TO PRIMARY CARE PROVIDER: Matt Hurleyectronically signed by Bubba Maxwell MD at 07/28/2014 2:50 PM PDTdocumented in this encounter Miscellaneous Notes Sedation Documentation - Guy Vela RN - 07/28/2014 9:37 AM PDTPt report given at beds brit to Peyton Tadeo. Site wnl pt nad. Distal pulse present cms+. edation Documentation - Guy Vela RN - 2014 9:28 AM PDTRFA Angeo Seal placed site wnl. No pt alert and oriented x3 nad. Electron ically signed by Guy Vela RN at 07/28/2014 9:28 AM PDTSedation Documentation - Kayla Vela RN - 07/28/2014 9:26 AM PDTPt tolerated procedure with no difficulty. She is alert and oriented x3 at this time and reports no discomfort. edation Documentation - Guy Vela RN - 07/28/2014 8 :45 AM PDTPt in room vs wnl she is alert and oriented x3 pt procedure explained and question s answered. documented in this encounter Plan of Treatment [...] CATHETERIZATION and CORONARY ANGIOGRAPHY PATIENT NAME/: | [facility] | | Etelvina Benitze, (1950) MEDICAL RECORD NUMBER: [facility] | | [id number] DATE OF PROCEDURE: 07/28/2014 LEGAL RECEPTIONIST: | - IMAGING | | Bubba Maxwell MD, PhD, [facility] PROCEDURES | | | PERFORMED: Coronary [...] | + + + + + | [facility] | [address] | [place] | [phone] | | [facility] | | [address] | | | - IMAGING | | [...] [facility] | | | | | [facility] | | | | | | C[facility] - | | | | | | LABORATORY | | + + + + + + | BUN | 13 | 7 - 18 mg/dL | [facility] | | [facility] | [facility] | | | | | | CENTER - | | | | | | LABORATORY | | + + + + + + | Creatinine | 1.05 | 0.60 - 1.30 | [facility] | | | | | mg/dL | [facility] | | | | | | MEDICAL | | | | | | CENTER - | | | | | | LABORATORY | | + + + + + + | eGFR, | 53 (L)Comment: | >=60 | [facility] | | | non- | GLOMERULAR FILTRATION | mL/min/1.73m2 | [facility] | | | Indian | RATE,ESTIMATED | | MEDICAL | | | | mL/min/1.15n2Wsvw than | | CENTER - | | [...] | 9.2 | 8.3 - 10.5 | [facility] | | | | | mg/dL | [facility] | | | | | | MEDICAL [...] [address] | [place] | [phone] | | [facility] | | [address] | | | - LABORATORY | | [...] | | | POC | | | [facility] | | | | | | MEDICAL [...] + | [address] | [address] | [place] | [phone] | | [facility] | | [address] | | | - LABORATORY | | [...] | | | | injection PRN, Starting Sun | | 15 8:58 | | | [...]
--- OUTSIDE RECORDS SUMMARY | ~2020-01-06 | XMS | Encounter Summary ---
Demographics + + + | Address | [address] | | | [place] [address] | + + + | Home Phone [...] | Author | [facility] | | | and [place] | + + + | Organization | [facility] [...] Team Providers + +------+ + | Care Frit Maker Name | Role | Phone | [...] + | 08/28/ | Surgery | [facility] | Bubba Maxwell | CV LHC | | 2018 | | MED CTR CV INTRA OP | MD Yimi [address] | | | | | [address] | [address] [place] | | | | | [place] | [place] [address] | | | | | [address] | [phone] | | | | | [phone] | | | +--------+---------+ + + + [...] by: Bubba Maxwell MD, 08/28/2017 8:24 [facility] Micheline, Bubba Geller MD - 08/13/2017 1:30 PM [...] returned for follow-up visit and moved to [facility], having only returned recently. She ended up undergoing cervical fusion surgery in [facility] and did not have any further cardiology [...] 1975 [place] LYMPH NODE BIOPSY 1971 [place] NASAL SINUS SURGERY 1988 OTHER SURGICAL HISTORY Left 07/28/2014 Procedure: LEFT HEART CATH; Surgeon: Bubba Maxwell MD; Location: [facility] CARDIO VASC ULAR LAB ROTATOR CUFF REPAIR [...] f rom consideration of consultation with an stave log ripsaw operator if feasible. Patient also would b enefit [...] made to ensure accuracy; however, inadvertent computerized fixed income analyst errors may be pre sent. Electronically signed by: Rafael Maxwell MD PhD [facility] 08/13/2017 documented in t his encounter [...]
--- OUTSIDE RECORDS SUMMARY | ~2020-01-06 | XMS | Encounter Summary ---
Demographics + + + | Address | [address] | | | [place] [address] | + + + | Home Phone [...] Author | [facility] | | | and [place] | + + + | Organization | [facility] | [...] Team Providers + +------+ + | Care Beam Sealer Name | Role | Phone | + [...] | | | | | radiculopath | [address] | | | | | | y Lumbar | [place], | | | | | | degenerative | [place] [address] | | | | | | disc | Phone: | | | | | | disease | [phone] | | | | | | Lumbar facet | Fax: | | | | | | arthropathy | [phone] | | +--------+ + + + + [...] | pain | MD Pranav | [address] | | | | n | radiating to | [address] | [place], | | | | | both legs | [place] | [place] [address] | | | | | | [address] | Phone: | | | | | | [place], | [phone] | | | | | | [place] | Fax: | | | | | | [address] | [phone] | | | | | | Phone: | | | | | | | [phone] | | | | | | | Fax: | | | | | | | [phone] | | +--------+--------+ + + + + Encounter Details +--------+---------+ + + + | Date | Type | Department | Care Team | Description | +--------+---------+ + + + | 08/07/ | Office | [facility] PHYSICAL | Gael Adam, | Lumbalgia (Primary | | 2013 | Visit | MEDICINE | [address] | Dx); Lumbar | | | | RE[address] | [place], [place] | radiculopathy; | | | | [address] | [address] | Lumbar degenerative | | | | [place] | | disc disease; Lumbar | | | | [address] | | facet arthropathy; | | | | [phone] | | Tobacco dependence | +--------+---------+ + [...] clinic. Your injection will be performed at [facility]. Please take note of weather your pain is si gnificantly reduced in the hours immediately following the injection. Physical therapy has been prescribed. Please participate in physical therapy. If you have not be contacted for an appointment with physical therapy within one week, please contact hair clinic. Once you have completed physical [...] office note has been dictated. Job ID# [id number] signed by Gael Adam MD at 08/07/2013 12:45 PM Mildred Dutta RN - 08/07/2013 11:15 AM PDTPatient states pain to back for 10 year that has become worse in the last 2 years. States 5/10 pain at this time. ael Adam MD - 08/07/2013 12:00 AM PDT PHYSICAL MEDICINE AND REHAB [address] [place] [address] FAX: [phone] OFFICE VISIT CONSULT REQUESTED BY: Matt Kinney [...] previous evaluation at a spine center in [place]. She indicates th at she previously was planning on surgery on her back, but did not go through with the surg anshul because of financial concerns. She indicates that the surgery center was out of her [facility], so she decided not to have [...] necessarily her back. She has not had career development associate, and her notes from her doctor, Dr. [...] that her mother was living in a senior living and had paranoid schizophrenia. She indicates that she wa s age 28 when her mother . She indicates that heart disease, diabetes, and mental illne ss run in her family. SOCIAL HISTORY: She works at [employer]. 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 She indicates that she has to do a lot of walking through the [employer]. She smokes a pac k and a half of cigarettes per day and has been smoking for years. She denies consumption o f alcohol. She denies use of illicit drugs. She indicates that she tried smoking marijuana 2 years ago for back pain. She indicates that it did give her some pain reduction. REVIEW OF SYSTEMS Pulse denies nausea, vomiting, diarrhea, constipation, fever, chills, [...] sounds. Mild obesity. BACK: Flattening of normal edbra mbar lordosis. Lumbar facet loading test increases [...] normal and intact. DATABASE: Lumbar MRI from 2012, imaging personally reviewed by me, demonstrates multilevel [...] and continue to smoke. She was encoura ged to consider smoking cessation at this time. [...] cessation. Greater than 45 minutes was spent [id number]-dr-rzus today with Ms. Benitez over half of which was spent formulating and discussing her medical treatment plan. Thank you for allowing me to be involved in the care of your the patient. If you have any questions regarding the care of Ms. Benitez, please do not hesitate to call. Gael Adam Jr, MD [place] / JOB #: [id number] cc: Tracey Kinney MD Tdocumented in this encounter Miscellaneous Notes Miscellaneous - ONBASE SCAN [facility] - 07/23/2013 12:00 AM PDT iscellaneous - ONBASE SCAN [facility] - 07/14/2013 12:00 AM PDTEle ctronically signed by Karl Gamino at 08/12/2013 1:44 PM PDTdocumented in this encounter Plan of Treatment + [...] lumbar spine. Levoconvex scoliosis. 5 | | sipzyh-bxeualkqmpphk-oxtr vertebral bodies. Retrolisthesis of L3 on L4 [...] + | MISCELLANEOUS LAB | | | [phone] | + +---------+ + + | MISCELANIOUS LAB | | | [phone] | + +---------+ + + documented in [...]
--- OUTSIDE RECORDS SUMMARY | ~2020-01-06 | XMS | Encounter Summary ---
Demographics + + + | Address | [address] | | | [place] [address] | + + + | Home Phone [...] Organization | [facility] | [...] Team Providers + +------+ + | Care Cocoa Room Operator Name | Role | Phone | + +------+ + PCP | Unavailable | + +------+ + Encounter Details +--------+ + + + + | Date | Type | Department | Care Team | Description | +--------+ + + + + | 07/21/ | Abstract | [facility] | Gael Adam, | | | 2014 | | MEDICINE | MD [address] | | | | | [address] | [place] | | | | | [address] | [address] | | | | | [place] | | | | | | [address] | | | | | | [phone] | | | +--------+ + + + [...]
--- OUTSIDE RECORDS SUMMARY | ~2020-01-06 | XMS | Encounter Summary ---
Demographics + + + | Address | [address] | | | [place] [address] | + + + | Home Phone [...] Author | [facility] | | | and [place] | + + + | Organization | [facility] | | | [...] Providers + +------+ + | Care Senior Interactive Producer Name | Role | Phone | + +------+ + | Margie Gonzalez | PCP | | + +------+ + Reason for Visit +--------+--------+ + | Reason | Onset | Comments | | | Date | | +--------+--------+ + | Other | 08/28/ | procedure needs to be rescheduled | | | 2018 | | +--------+--------+ + Encounter Details +--------+ + + + + | Date | Type | Department | Care Team | Description | +--------+ + + + + | 08/28/ | Telephone | [facility] | Bubba Maxwell | Other (procedure | | 2017 | | CARDIOLOGY [address] | MD Yimi [address] | needs to be | | | | [place], | [place] [address] [place] | rescheduled) | | | | [place] [address] | [place] [address] | | | | | [phone] | [phone] | | | | | | | [...] this encounter Miscellaneous Notes Telephone Encounter - Francisca Webb - 10/02/2017 11:59 AM PDTPatient called back and w as rescheduled for 11-27-[address] MaxwellElectronically signed by Francisca Webb at 10/02 11:59 AM PDTTelephone Encounter - Francisca Webb - 10/01/2017 4:24 PM PDTPatient called back states she does not have enough gas to make it to appointment tomorrow. Appointm ent was cancelled. Patient needs to be seen in office by Dr. Maxwell before procedure is scheduled. Left voicemail to call back and reschedule appt. elephone Encounter - Che Castro - 10/01/2017 1:21 PM PDTCall ed patient letting her know to keep her appointment tomorrow with Dr. Maxwell. Left voicemail for her to call us back to confirm. 1:2 2 PM PDTTelephone Encounter - Erika Blancas RN - 10/01/2017 12:59 PM PDTPatient needs to keep the appointment tomorrow so we can evaluate and get her back on the schedule for heart cath. She will need a new H&P at this time ...........................................Dawn Blancas RN on 10/01/17 at 12:59 elephone Encounter - Che Castro - 10/01/2017 11:41 AM PDTPatient called office unsure if she should confirm her appointment with Dr. Maxwell tomorrow 10-02-17 for a follow up for her procedure. Patient did not have procedure done as she had shingles, so she is not sure of what she should do. She states she was supposed to wait for a call back from one of the nurses about scheduling the procedure but has not heard anything. Electronically signed by Che Castro at 8 11:46 AM PDTTelephone Encounter - Camilla Andino RN - 09/04/2017 1:06 PM PDTPatient ca lled the clinic returning phone call. Informed her she will be called back from the clinic o nce this has been reviewed by Dr. Maxwell. Codyay per patient. ................................ ...........CAMILLA ANDINO RN on 09/04/17 at 13:09 elephone Encounter - Camilla Andino RN - 09/03/2017 9:19 AM PDTDebby called the clinic and left a message s tating she still has shingles. Patient has [facility] procedure scheduled on 09/04/[address] Micky goel. ...........................................CAMILLA ANDINO RN on 09/03/17 at 9:21 elephone Encounter - Erika Blancas RN - 08/28/2017 8:45 AM PDTCarol from [facility] to [facility] that patient was complaining of a pain on her hip. On examination Evelina reports that it appears to be sh ingles. She has contacted infection control and was advised that it is airborne and if it i s not urgent or emergent then the procedure should be rescheduled. Dr Maxwell was advised an d asked to go take a look to confirm the shingles. He advised that he is not an expert in s hingles and if that is the suspicion then the patient should go to Urgent care for confirmat ion and procedure should be rescheduled. Evelina is notified and will notify the patient. Pr ocedure will be rescheduled. ...........................................Erika Blancas RN on 08/28/17 at 8:48 documented in this encounter Plan of Treatment Not on filedocumented as of this encounter Visit Diagnoses Not on filedocumented in this encounter"
--- OUTSIDE RECORDS SUMMARY | ~2020-01-06 | XMS | Encounter Summary ---
Demographics + + + | Address | [address] | | | [place] [address] | + + + | Home Phone [...] Author | [facility] | | | and [place] | + + + | Organization | [facility] | | | and [place] [...] Team Providers + +------+ + | Care Talk Show Host Name | Role | Phone | + +------+ + | Margie Gonzalez | PCP | | + +------+ + Reason for Visit +--------+--------+ + | Reason | Onset | Comments | | | Date | | +--------+--------+ + | Other | 12/26/ | sooner follow up needed | | | 2018 | | +--------+--------+ + Encounter Details +--------+ + + + + | Date | Type | Department | Care Team | Description | +--------+ + + + + | 12/26/ | Telephone | [facility] | Bubba Maxwell | Other (sooner follow | | 2017 | | [address] | MD Yimi [address] | up needed) | | | | [place], | [address] [place] | | | | | [place] [address] | [place] [address] | | | | | [phone] | [phone] | | | | | | | [...] Notes Telephone Encounter - Francisca Webb - 12/27/2017 10:07 AM PDTPatient rescheduled to se jose Maxwell 01/10/18 el ephone Encounter - Erika Blancas RN - 12/26/2017 10:[address] Sabino vasquez, patient was in for procedure yesterday and will need to follow up in the office sooner than planned. He would like to see her in the office in 2-3 weeks. I will ask PSR's to pl ease reschedule the previous follow up and coordinate with the patient. Thanks ............. ..............................Erika Blancas RN on 12/26/17 at 11:00 documented in this encounter Plan of Treatment Not on filedocumented as of this encounter Visit Diagnoses Not on filedocumented in this encounter"
--- OUTSIDE RECORDS SUMMARY | ~2020-01-06 | XMS | Encounter Summary ---
Demographics + + + | Address | [address] | | | [place] [address] | + + + | Home Phone [...] + + + | Author | [facility] | | | and [place] | + + + | Organization | [facility] [...] Team Providers + +------+ + | Care Rouge Mixer Name | Role | Phone | [...] | Cardiothoraci | Diagnoses | Maxood, | Mraa, | | | Services | c Surgery | Coronary | Bubba | Boby Ni MD | | | Required | | artery | MD Yimi | [address] [address] | | | | | disease, | [address] | | | | | angina | St [place] | [address] | | | | | presence | [place], [place] | [place], [place] | | | | | unspecified, | [address] | [address] Phone: | | | | | unspecified | Phone: | [phone] | | | | | vessel or | [phone] | Fax: | | | | | lesion type, | Fax: | [phone] | | | | | unspecified | [phone] | | | | | | whether | | | | | | | torres martinez or | | | | | | [...] + + + + Reason for Visit +--------+--------+ + | Reason | Onset | Comments | | | Date | | +--------+--------+ + | Other | 05/08/ | patient would like to go to [place] instead of [place] | | | 2018 | | +--------+--------+ + Encounter Details +--------+ + + + + | Date | Type | Department | Care Team | Description | +--------+ + + + + | 05/08/ | Telephone | [facility] | Bubba Maxwell | Other (patient would | | 2019 | | CARDIOLOGY [address] | MD Yimi [address] | like to go to | | | | [place], | [address] [place] | [place] instead of | | | | [place] [address] | [place] [address] | [place]) | | | | [phone] | [phone] | | | | | | | [...] Telephone Encounter - Erika Blancas RN - 05/09/2018 10:18 AM PSTDebby is notified ..... ......................................Erika Blancas RN on 05/09/18 at 10:19 elephone Encounter - Erika Blancas RN - 05/09/2018 9:15 AM PSTPer conversation with ivett Larkin to refe r to [facility] Surgeon. Patient will be referred to Dr Boby Terry MD at this time. Re jose antonio is marked Urgent. Left message at home number for patient to return my call. Annita at [facility] notified per message with Arlet. Appointment with Dr Tavarez has been cancelled at this time through Mary at [facility]&. ...........................................Erika Blancas RN on 05/09/18 at 9:30 elephone Encounter - Erika Blancas RN - 05/08/2018 10:19 AM Mauri from [facility] called. Patient is scheduled in [place] to see Dr Tavarez on 06-13 and 06-14. She does not drive and rodriguez s not have any family in [place]. This will be a hardship for her to go to [place]. They wou ld like to know if she could go to [place] instead. She has family there that could help h er with transportation, support and care. I will consult Dr Maxwell and then let Annita gonzalez amando patient know ...........................................Erika Blancas RN on 05/08/18 at 10:21 documented in this encounter Plan of Treatment [...] whether | | | | | | torres martinez or | | | | | | [...] or lesion | | type, unspecified whether torres martinez or transplanted heart - Primary | + + | Mitral valve insufficiency, unspecified etiology | + + documented in this encounter"
--- OUTSIDE RECORDS SUMMARY | ~2020-01-06 | XMS | Encounter Summary ---
Demographics + + + | Address | [address] | | | [place] [address] | + + + | Home Phone | | + + + | Preferred Language | Unknown | + + + | Marital Status | Single | + + + | Zoroastrian Affiliation | 1013 | + + + | Race | White | + + + | Ethnic Group | or | + + + Author + + + | Author | [facility] | | | and [place] | + + + | Organization | [facility] | [...] Providers + +------+ + | Care Field Representatives Director Name | Role | Phone | + +------+ + | Matt Kinney MD | PCP | | + +------+ + Reason for Visit +--------+--------+ + | Reason | Onset | Comments | | | Date | | +--------+--------+ + | LABS | 08/07/ | | | | 2017 | | +--------+--------+ + Encounter Details +--------+ + + + + | Date | Type | Department | Care Team | Description | +--------+ + + + + | 08/07/ | Telephone | [facility] | Bubba Maxwell | LABS | | 2018 | | [address] | MD Yimi [address] | | | | | [place], | [address] [place] | | | | | [place] [address] | [place] [address] | | | | | [phone] | [phone] | | | | | | | [...] this encounter Miscellaneous Notes Telephone Encounter - Sari Herron Director [employer] - 08/07/2017 10:13 AM PDTOrders fax ed. elep howard Encounter - Julisa Salazar RN - 08/07/2017 10:00 AM PDTOrders done .............. .............................Julisa Salazar RN on 08/07/17 at 10:01 elephone [facility] Harrell Director [employer]eron[employer] Commission - 08/07/2017 8:33 AM PDTPatient scheduled for an mauro ointment on 08/13/2017 and is needing a fasting Lipid panel. Please order, thank you. I will fax order to [facility] in [place] documented in this encounter Plan of Treatment [...]
--- OUTSIDE RECORDS SUMMARY | ~2020-01-06 | XMS | Encounter Summary ---
Demographics + + + | Address | [address] | | | [place] [address] | + + + | Home Phone [...] | Organization | [facility] | | [...] Team Providers + +------+ + | Care Diesel Engine Specialist Name | Role | Phone | + +------+ + | Matt Kinney MD | PCP | | + +------+ + Reason for Visit +--------+--------+ + | Reason | Onset | Comments | | | Date | | +--------+--------+ + | Other | 08/18/ | | | | 2014 | | +--------+--------+ + Encounter Details +--------+ + + + + | Date | Type | Department | Care Team | Description | +--------+ + + + + | 08/18/ | Telephone | [facility] [place] | Gael Adam, | Other | | 2014 | | PHYSIATRY [address] | MD [address] | | | | | [address] | [place], [place] | | | | | [place], [place] | [address] | | | | | [address] | | | | | | [phone] | | | +--------+ + + + [...] Telephone Encounter - Mildred Colon RN - 08/18/2014 5:15 PM PDTThank you for the updat e. elephone Shantell Weber - 08/18/2014 9:39 AM PDTPatient cancelled her follow up appointments wi th Dr. Adam because she is moving out of state.Electronically signed by Shantell Crowe at 0 08/18/2014 9:41 AM PDTdocumented in this encounter Plan of Treatment Not on filedocumented as of this encounter Visit Diagnoses Not on filedocumented in this encounter"
--- OUTSIDE RECORDS SUMMARY | ~2020-01-06 | XMS | Encounter Summary ---
Demographics + + + | Address | [address] | | | [place] [address] | + + + | Home Phone [...] | Organization | [facility] | [...] Providers + +------+ + | Care Internet Site Designer Name | Role | Phone | + +------+ + | Matt Kinney MD | PCP | | + +------+ + Reason for Visit + +--------+ + | Reason | Onset | Comments | | | Date | | + +--------+ + | Appointment | 08/18/ | | | | 2014 | | + +--------+ + Encounter Details +--------+ + + + + | Date | Type | Department | Care Team | Description | +--------+ + + + + | 08/18/ | Telephone | [facility] | Bubba Maxwell | Appointment | | 2014 | | [address] | MD Yimi [address] | | | | | [place], | [place] [address] [place] | | | | | [place] [address] | [place] [address] | | | | | [phone] | [phone] | | | | | | | [...] Telephone Encounter - Raina Crow Last - 08/18/2014 9:46 AM PDTPatient called to [facility] with Dr. Maxwell on 08-25-14 at 1:00. Patient declines rescheduling, states that she is moving out of state and will be establishing cardio care in the area that she is moving to. Diana platt in this encounter Plan of Treatment Not on filedocumented as of this encounter Visit Diagnoses Not on filedocumented in this encounter"
--- OUTSIDE RECORDS SUMMARY | ~2020-01-06 | XMS | Encounter Summary ---
Demographics + + + | Address | [address] | | | [place] [address] | + + + | Home Phone [...] | Organization | [facility] | | [...] Team Providers + +------+ + | Care Zinc Miner Blasting Name | Role | Phone | + [...] atherosclero | MD Yimi | [address] | | | | | sis of | [address] | [place], | | | | | unspecified | St [place] | [place] | | | | | type of | [place], [place] | [address] | | | | | vessel, | [address] | Phone: | | | | | alutiiq or | Phone: | [phone] | | | | | graft | [phone] | Fax: | | | | | Preoperative | Fax: | [phone] | | | | | | [phone] | | | | | | examination, [...] | | | | | | STUDIES [place] | | | | | | | CV STRS TST | | | | | | | XERS&/OR RX | | | | | | | CONT ECG W/O | | | | | | | I&R [place] | | | | | | | [...] + + | 07/15/ | Hospital | [facility] | Bubba Maxwell | | | 2015 | Encounter | MED CTR NUCLEAR | MD Y[address] | | | | | MEDICINE [address] [place] | | | | | [place], | [place] [address] | | | | | [place] [address] | [phone] | | | | | [phone] | | | +--------+ + + + [...]
--- OUTSIDE RECORDS SUMMARY | ~2020-01-06 | XMS | Encounter Summary ---
Demographics + + + | Address | [address] | | | [place] [address] | + + + | Home Phone [...] Organization | [facility] | | [...] Team Providers + +------+ + | Care Line And Frame Poler Name | Role | Phone | + +------+ + | Margie Gonzalez | PCP | | + +------+ + Encounter Details +--------+ + + + + | Date | Type | Department | Care Team | Description | +--------+ + + + + | 10/10/ | Orders Only | [facility] [place] | Trav Acosta | | | 2019 | | CARDIOLOGY [address] | [place] | | | | | [place], | | | | | | [place] [address] | | | | | | [phone] | | | +--------+ + + + [...]
--- OUTSIDE RECORDS SUMMARY | ~2020-01-06 | XMS | Encounter Summary ---
Demographics + + + | Address | [address] | | | [place] [address] | + + + | Home Phone [...] + | Author | [facility] | | | and [place] | + + + | Organization | [facility] | | | and [place] [...] Team Providers + +------+ + | Care Farmer And Grazier Name | Role | Phone | + [...] artery disease (HCC) | | | | [address]VE [place] | [address] [place] | (Primary Dx) | | | | [address] | [place] [address] | | | | | [phone] | [phone] | | | | | | | [...]
--- OUTSIDE RECORDS SUMMARY | ~2020-01-06 | XMS | Encounter Summary ---
Demographics + + + | Address | [address] | | | [place] [address] | + + + | Home Phone [...] Author | [facility] | | | and [place] | + + + | Organization | [facility] | | | and [place] [...] | | Cervical | Zen Quijano, | Latyon Ni DO | | | Required | | stenosis of | MD Need | [address] | | | | | spinal canal | updated | [address] | | | | | | address | [place], [place] | | | | | | | [address] Phone: | | | | | | | [phone] | | | | | | | Fax: | | | | | | | [phone] | +--------+ + + + + + Reason for Visit +--------+--------+ + | Reason | Onset | Comments | | | Date | | +--------+--------+ + | Other | 04/24/ | Returned Dr Carey's call | | | 2014 | | +--------+--------+ + Encounter Details +--------+ + + + + | Date | Type | Department | Care Team | Description | +--------+ + + + + | 04/24/ | Telephone | [facility] | Zen Carey | Other (Returned Dr | | 2014 | | [facility] | MD Macie Need updated | Aurelio's call) | | | | [address] [facility], | address | | | | | [address] [place] | | | | | | [place] [address] | | | | | | [phone] | | | +--------+ + + + [...] this encounter Miscellaneous Notes Telephone Encounter - Zen Carey MD - 04/24/2014 12:56 PM PSTSpoke with Ms. Terri garcia about her MRI results. MRI brain looks normal. MRI C-spine shows significant cervical sten osis at several levels that may explain some of patient's incoordination and weakness in her arms. Patient interested in referral to neurosurgery, which has been placed. elephone Encounter - Georgette Couch RN - 04/24/2014 9:[address] Dr. Carey's call regarding the re sults of her MRI Magda mented in this encounter Plan of Treatment + [...]
--- OUTSIDE RECORDS SUMMARY | ~2020-01-06 | XMS | Encounter Summary ---
Demographics + + + | Address | [address] | | | [place] [address] | + + + | Home Phone [...] + + + | Author | [facility] | | | and [place] | + + + | Organization | [facility] | | | and [place] [...] Team Providers + +------+ + | Care Silver Plater Name | Role | Phone | + [...] | | | insufficienc | [address] | [address] [place], | | | | | y, | [place] | [place] [address] | | | | | unspecified | [place], [place] | Phone: | | | | | etiology | [address] | [phone] | | | | | Coronary | Phone: | Fax: | | | | | artery | [phone] | [phone] | | | | | disease, | Fax: | | | | | | angina | [phone] | | | | | | presence [...] | | | | | | | aniak or | | | | | | [...] + + | 02/14/ | Office | [facility] | Bubba Maxwell | Abnormal heart rate | | 2017 | Visit | CARDIOLOGY [address] | MD Yimi [address] | (Primary Dx); Poor | | | | [place], | [address] [place] | circulation; | | | | [place] [address] | [place] [address] | Stenosis of carotid | | | | [phone] | [phone] | artery, unspecified | | | | [...] whether | | | | | | [place] or | | | | | | [...] CV LHC; Surgeon: Bubba Maxwell MD; Location: [facility] CV LAB CARDIAC CATHERIZATION N/A 11/13/2017 Procedure: CV LHC; Surgeon: Bubba Maxwell MD; Location: [facility] CV LAB HYSTERECTOMY 1975 [place] LYMPH NODE BIOPSY 1971 [place] NASAL SINUS SURGERY 1987 OTHER SURGICAL HISTORY Left 07/28/2014 Procedure: LEFT HEART CATH; Surgeon: Bubba Maxwell MD; Location: [facility] CARDIO VASC ULAR LAB ROTATOR [...] reviewed by me with the patient today: [facility] 11/13/2017, interpreted and reviewed by me with [...] f rom consideration of consultation with an court crier if feasible. Patient also would b enefit [...] consultation by my colleague Dr. Tavarez in [place]. In the meanwhile I have asked the [...] made to ensure accuracy; however, inadvertent computerized nurse examiner errors may be pre sent. Electronically signed by: Rafael Maxwell MD PhD FACC 02/14/2018 documented in t his encounter Miscellaneous Notes Addendum Note - Chloe Corona RN - 02/14/2018 1:00 PM PDT Addended by: CHLOE CORONA on: 02/15/2018 09:29 Modules accepted: Orders documented in this encounter [...] whether | | | | | | [place] or | | | | | | [...] or lesion | | type, unspecified whether ani[place] or transplanted heart | + + documented in this encounter
--- OUTSIDE RECORDS SUMMARY | ~2020-01-06 | XMS | Encounter Summary ---
Demographics + + + | Address | [address] | | | [place] [address] | + + + | Home Phone | | + + + | Preferred Language | Unknown | + + + | Marital Status | Single | + + + | Scientology Affiliation | Unknown | + + + [...] Team Providers + +------+ + | Care Shingle Trimmer Name | Role | Phone | + [...] [address] | | | | [address] [place], | [place], [place] | | | | | [place] [address] | [address] | | | | | [phone] | [phone] | | | | | | | [...] encounter Progress Notes Rosa Orozco PA - 09/17/2018 2:00 PM PDTFormatting of this note might be different fro m the original. Longterm Facility Follow-Up: [facility] Etelvina Benitez is a 67 y.o. female with a PMHx significant for CAD, Mitral valve insuffic iency, HFr EF, PAD, cerebrovascular disease (?), tobacco abuse, hypothyroidism, htn, sarcoi dosis, peripheral neuropathy, DM2, dysphagia, falls, and depression/anxiety. She is admitted for skilled therapy following a hospitalization at [facility] 09/03-09/13 for CABG and MVR. Her hospital course was complicated by hepatic enceph alopathy, dysphagia and anorexia. She is seen today at [facility] in follow-up for Diabetes Management [...] 20 mEq by mouth onc e daily. IP154-KVDT-UBVHW ACID ( MULTI) 27-800 MG-MCG ORAL TABLET [...] Good attention. States days of week and suns of year in reverse without error. Reports [...] Read by Dr Abdon [facility] from [facility]: 09/15 Na 141 K 4.5 Chl 99 [...] reviewing chart notes/history to help guide care Rosa Orozco PA-C [facility] Division of Internal Medicine and [...]
--- OUTSIDE RECORDS SUMMARY | ~2020-01-06 | XMS | Encounter Summary ---
Demographics + + + | Address | [address] | | | [place] [address] | + + + | Home Phone [...] | Author | [facility] | | | and [place] | + + + | Organization | [facility] | [...] Team Providers + +------+ + | Care Warp Clamper Name | Role | Phone | + [...] | | | | | | | [place] CATH | | | | | | [...] + + | 07/28/ | Hospital | [facility] | Bubba Maxwell | Coronary artery | | 2014 | Encounter | MED CTR CV INTRA OP | MD Yimi [address] | disease involving | | | | [address] | [address] [place] | los coyotes coronary | | | | [place], [place] | [place] [address] | artery without | | | | [address] | [phone] | angina pectoris | | | | [phone] | | (Primary Dx); CAD | | [...] You have a fever over 101F (38.3C). 9118-3356 [employer]. [address] [place] [address]. All righ ts reserved. This information is [...] Bubba Maxwell MD - 07/28/2014 9:51 AM PDTProNorthwest Hospital [facility] Services SURGICAL INTERIM HISTORY AND PHYSICAL UPDATE Pt. Name/Age/: Etelvina Benitez 63 y.o. 1950 Date of admission: 07/28/2014 The current H&P was reviewed. The patient was reexamined. Re-evaluation of the patient co nfirms the necessity for the scheduled procedure. No change has occurred in the patient s condition since the H&P was completed less than 30 days ago. Electronically signed by: Bubba Maxwell, 07/28/2014 9:51 [facility]ATEElectronically signed by MD vinny Luke 07/28/2014 9:51 AM PDTdocumented in this encounter Procedure Notes Bubba Maxwell MD - 07/28/2014 9:58 AM PDTAssociated Order(s): CV ADULT CARDIAC CA TH DIAG/PCIProcedure(s): CV ADULT CARDIAC CATH DIAG/PCIFormatting of this note might be diff erent from the original. CARDIAC CATHETERIZATION and CORONARY ANGIOGRAPHY PATIENT NAME/: Etelvina Benitez, (1950) DATE OF PROCEDURE: 07/28/2014 SENIOR JAVA DEVELOPER: Bubba Maxwell MD, PhD, [facility] PROCEDURES PERFORMED: Coronary Angiography Left Heart [...] 07/28/2014 9:37 AM PDTPt [facility]. Site wnl pt nad. [...] Etelvina Benitez, (1950) MEDICAL RECORD NUMBER: | [facility] | | [id number] DATE OF PROCEDURE: 07/28/2014 SENIOR JAVA DEVELOPER: | - IMAGING | | Bubba Maxwell MD, PhD, [facility] PROCEDURES | | | PERFORMED: Coronary [...] | + + + + + | [facility] | [address] | [place] | [phone] | | [facility] | | [address] | | | - IMAGING | | [...] | 1.05 | 0.60 - 1.30 | GRADY | | | | | mg/dL | [facility] | | | | | | MEDICAL | | | | | | CENTER - | | | | | | LABORATORY | | + + + + + + | eGFR, | 53 (L)Comment: | >=60 | GRADY | | | non- | GLOMERULAR FILTRATION | mL/min/1.73m2 | [facility] | | | Croatian | RATE,ESTIMATED | | MEDICAL | | | | mL/min/1.45f7Rexm than | | CENTER - | | [...] | | | | | mg/dL | [facility] | | | | [...] | + + + + + | [facility] | [address] | [place] | [phone] | | [facility] | | [address] | | | - LABORATORY | | [...] [address] | [place], [place] | [phone] | | [facility] | | [address] | | | - LABORATORY | | | | + + + + + documented in this encounter Visit Diagnoses + + | Diagnosis | + + | Coronary artery disease involving los coyotes coronary artery without angina pectoris - | | Primary | + + | CAD (coronary artery disease) Coronary atherosclerosis of unspecified type of vessel, | | [place] coy[place] or graft | + + documented in [...] | | | | injection PRN, Starting Tu | | 15 8:58 | | | [...]
--- OUTSIDE RECORDS SUMMARY | 2020-01-06 15:52 | XMS ---
PreManage Notification: SIMÓN AVILA Security Estate Planning Attorney Events No recent Security Events currently on file CRITERIA MET - ELEAZARP CARE PROVIDERS AGNIESZKA LUNA Physician Telex Operator 11/29/2017-Current PHONE: [phone] Juan has no Care Guidelines for this patient. E.DStefanie VISIT COUNT (12 MO.) 2 [facility] TOTAL 2 NOTE: Visits indicate total known visits. 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
== END 2020-01-06 19:53 | disposition home or self-care (01) ==
LOC: ED 14:20
DX: R10.9 Unspecified abdominal pain (principal); E03.9 Hypothyroidism, unspecified; E11.40 Type 2 diabetes mellitus with diabetic neuropathy, unspecified; F17.200 Nicotine dependence, unspecified, uncomplicated; Z88.5 Allergy status to narcotic agent; Z79.899 Other long term (current) drug therapy; Z79.4 Long term (current) use of insulin; Z79.82 Long term (current) use of aspirin
CPT/HCPCS: 71046; 80053; 81001; 84484; 85025; 85379; 99284-25

== ENCOUNTER 2020-09-08 17:31 | Emergency (ER) | payer MEDICARE, OTHER ==
[~2020-09-08] VITALS: Ht 165.1 cm; Wt 57.6 kg
[2020-09-08] MEDS ORDERED: ZOFRAN4 MG PO (18:53)
== END 2020-09-08 21:43 | disposition home or self-care (01) ==
LOC: ED 17:31
DX: E11.65 Type 2 diabetes mellitus with hyperglycemia (principal); Z79.4 Long term (current) use of insulin; E03.9 Hypothyroidism, unspecified; E11.40 Type 2 diabetes mellitus with diabetic neuropathy, unspecified; Z88.5 Allergy status to narcotic agent; Z79.899 Other long term (current) drug therapy; Z79.82 Long term (current) use of aspirin
CPT/HCPCS: 80053; 81001; 82010; 82803; 85025; 99284; J7030

== ENCOUNTER 2021-07-06 07:11 | Emergency (ER) | payer MEDICARE ==
[~2021-07-06] VITALS: Ht 165.1 cm; Wt 57.6 kg
[~2021-07-06 07:11] MED LIST changes: +ZOFRAN4 MG PO
[2021-07-06] MEDS ORDERED: BASAGLAR K100 UNIT/1 (07:26)
--- NOTE | 2021-07-06 18:26 | EKG ---
[facility] [address] [facility] [place] [address] Signed Sinus bradycardia Nonspecific T wave abnormality Abnormal ECG When compared with ECG of 09-OCT-2019 12:35, T wave inversion no longer evident in Inferior leads QT has shortened Confirmed by NITISH LY MD ([id number]) on 07/06/2021 6:25:53 PM Electronically Signed By: NITISH LY MD 07/06/21 1826 PATIENT NAME: SIMÓN AVILA Electrocardiogram DATE OF : [birth year] PHYSICIAN: NITISH LY MD REPORT #: [id number] REPORT IS CONFIDENTIAL AND NOT TO BE RELEASED WITHOUT AUTHORIZATION
== END 2021-07-06 09:01 | disposition home or self-care (01) ==
LOC: ED 07:11
DX: R07.89 Other chest pain (principal); K21.9 Gastro-esophageal reflux disease without esophagitis; E11.40 Type 2 diabetes mellitus with diabetic neuropathy, unspecified; E03.9 Hypothyroidism, unspecified; F17.200 Nicotine dependence, unspecified, uncomplicated; Z88.5 Allergy status to narcotic agent; Z79.899 Other long term (current) drug therapy; Z79.4 Long term (current) use of insulin; Z79.84 Long term (current) use of oral hypoglycemic drugs; Z79.82 Long term (current) use of aspirin
CPT/HCPCS: 36415; 71045; 80053; 83690; 84484; 85025; 93005; 93010; 99285-25

== ENCOUNTER 2021-12-29 08:57 | Emergency (ER) | payer MEDICARE, OTHER ==
[~2021-12-29] VITALS: Ht 165.1 cm; Wt 59.9 kg
[~2021-12-29 08:57] MED LIST changes: +BASAGLAR K100 UNIT/1
[2021-12-29] MEDS ORDERED: LISINOPRIL20 MG PO (09:06)
--- NOTE | 2021-12-31 15:47 | EKG ---
[facility] [address] [facility] [place] [address] Signed Sinus bradycardia T wave abnormality, consider inferior ischemia Abnormal ECG When compared with ECG of 06-JUL-2021 07:15, T wave inversion now evident in Inferior leads Confirmed by NITISH LY MD ([id number]) on 12/31/2021 3:47:38 PM Electronically Signed By: NITISH LY MD 12/31/21 1547 PATIENT NAME: SIMÓN AVILA Electrocardiogram DATE OF : [birth year] PHYSICIAN: NITISH LY MD REPORT #: [id number] REPORT IS CONFIDENTIAL AND NOT TO BE RELEASED WITHOUT AUTHORIZATION
== END 2021-12-29 13:46 | disposition home or self-care (01) ==
LOC: ED 08:57
DX: I10 Essential (primary) hypertension (principal); Z79.4 Long term (current) use of insulin; E03.9 Hypothyroidism, unspecified; E11.40 Type 2 diabetes mellitus with diabetic neuropathy, unspecified; F17.200 Nicotine dependence, unspecified, uncomplicated; Z88.5 Allergy status to narcotic agent; Z79.899 Other long term (current) drug therapy; Z79.84 Long term (current) use of oral hypoglycemic drugs; Z79.82 Long term (current) use of aspirin
CPT/HCPCS: 36415; 71045; 80053; 83880; 84484; 85025; 93005; 93010; 96374; 99285-25; J1940

== ENCOUNTER 2022-05-20 22:44 | Emergency (ER) | payer MEDICARE, OTHER ==
[~2022-05-20] VITALS: Ht 165.1 cm; Wt 57.6 kg
[~2022-05-20 22:44] MED LIST changes: +LISINOPRIL20 MG PO
[2022-05-20] MEDS ORDERED: NOVOLIN N100 UNIT/2 SUB-Q (22:54)
[2022-05-20] MEDS ORDERED: FUROSEMIDE20 MG PO (22:54)
[2022-05-20] MEDS ORDERED: POTASSIUM CHLO10 ME1 PO (22:55)
[2022-05-21] MEDS ORDERED: CARDIZEM CD120 MG PO (02:12)
[2022-05-21] MEDS ORDERED: ELIQUIS5 MG PO (02:12)
[2022-05-22] MEDS ORDERED: JANTOVEN5 MG PO (12:38)
[2022-05-22] MEDS ORDERED: CARVEDILOL25 MG PO (13:11)
[2022-05-22] MEDS ORDERED: ATORVASTATIN CA80 MG PO (13:11)
[2022-05-22] MEDS ORDERED: LEVOTHYROXINE100 MCG PO (13:12)
[2022-05-22] MEDS ORDERED: METFORMIN HCL500 M1 PO (13:14)
--- NOTE | 2022-05-23 13:02 | EKG ---
[facility] [address] [place], [place] [address] Signed Atrial fibrillation with rapid ventricular response Minimal voltage criteria for LVH, may be normal variant ( [place] product ) ST \T\ T wave abnormality, consider inferolateral ischemia Abnormal ECG No previous ECGs available Confirmed by SAHRA ABAD MD ([id number]) on 05/23/2022 1:02:44 PM Electronically Signed By: SAHRA ABAD MD 05/23/22 1302 PATIENT NAME: SIMÓN AVILA Electrocardiogram DATE OF : 48 PHYSICIAN: SAHRA ABAD MD REPORT #: [id number] REPORT IS CONFIDENTIAL AND NOT TO BE RELEASED WITHOUT AUTHORIZATION
--- NOTE | 2022-05-23 13:02 | EKG ---
[facility] [address] [place] [address] Signed Sinus tachycardia with 1st degree AV block Left ventricular hypertrophy with repolarization abnormality ( [place] product ) Abnormal ECG When compared with ECG of 20-MAY-2022 22:50, (Unconfirmed) Sinus rhythm has replaced Atrial fibrillation Confirmed by SAHRA ABAD MD ([id number]) on 05/23/2022 1:02:48 PM Electronically Signed By: SAHRA ABAD MD 05/23/22 1302 PATIENT NAME: SIMÓN AVILA Electrocardiogram DATE OF : 48 PHYSICIAN: SAHRA ABAD MD REPORT #: [id number] REPORT IS CONFIDENTIAL AND NOT TO BE RELEASED WITHOUT AUTHORIZATION
== END 2022-05-21 05:40 | disposition home or self-care (01) ==
LOC: ED 22:44
DX: I48.91 Unspecified atrial fibrillation (principal); E11.40 Type 2 diabetes mellitus with diabetic neuropathy, unspecified; E03.9 Hypothyroidism, unspecified; F17.200 Nicotine dependence, unspecified, uncomplicated; Z20.822 Contact with and (suspected) exposure to COVID-19; Z88.5 Allergy status to narcotic agent; Z79.899 Other long term (current) drug therapy; Z79.4 Long term (current) use of insulin; Z79.82 Long term (current) use of aspirin
CPT/HCPCS: 36415; 71045; 80053; 83880; 84443; 84484; 85025; 85610; 85730; 87502; 93005; 93010; 96374; 99285-25; C9803; U0003

== ENCOUNTER 2022-05-22 09:17 | Emergency (ER) | payer MEDICARE, OTHER ==
[~2022-05-22] VITALS: Ht 165.1 cm; Wt 57.6 kg
[~2022-05-22 09:17] MED LIST changes: +CARDIZEM CD120 MG PO; +ELIQUIS5 MG PO; +FUROSEMIDE20 MG PO; +NOVOLIN N100 UNIT/2 SUB-Q; +POTASSIUM CHLO10 ME1 PO
--- OUTSIDE RECORDS SUMMARY | 2022-05-22 09:21 | XMS ---
PreManage Notification: SIMÓN AVILA Security Ice Cream Scooper Events No recent Security Events currently on file CRITERIA MET - [facility] - 2 Visits in 30 Days CARE PROVIDERS AGNIESZKA LUNA Physician Assembler For Puller Over Machine 01/07/2020-Current PHONE: [phone] Juan has no Care Guidelines for this patient. [place] VISIT COUNT (12 MO.) 4 [facility] TOTAL 4 NOTE: Visits indicate total known visits. ED/UCC VISIT TRACKING (12 MO.) 05/22/2022 09:18 [facility] [place] TYPE: Emergency COMPLAINT: - CHEST PAIN 05/20/2022 22:44 [facility] [place] TYPE: Emergency COMPLAINT: - CP 12/29/2021 08:58 [facility] [place] TYPE: Emergency COMPLAINT: - HIGH B/P, SOB DIAGNOSES: - Nicotine dependence, unspecified, uncomplicated - Type 2 diabetes mellitus with diabetic neuropathy, unspecified - Allergy status to narcotic agent - Shortness of breath - [facility] (current) use of aspirin - ocean transportation intermediary (current) use of insulin - Hypothyroidism, unspecified - Other medical terminologist (current) drug therapy - Essential (primary) hypertension - [facility] (current) use of oral hypoglycemic drugs 07/06/2021 07:[address] [facility] [place] TYPE: Emergency COMPLAINT: - SOB, CHEST PAIN DIAGNOSES: - [facility] (current) use of aspirin - [facility] (current) use of insulin - Other medical terminologist (current) drug therapy - Other chest pain - [facility] (current) use of oral hypoglycemic drugs - Type 2 diabetes mellitus with diabetic neuropathy, unspecified - Hypothyroidism, unspecified - Nicotine dependence, unspecified, uncomplicated - Allergy status to narcotic agent - Gastro-esophageal reflux disease without esophagitis INPATIENT VISIT TRACKING (12 MO.) No inpatient visits to display in this time frame [id number]
[2022-05-22] MEDS ORDERED: JANTOVEN5 MG PO (12:38)
[2022-05-22] MEDS ORDERED: CARVEDILOL25 MG PO (13:11)
[2022-05-22] MEDS ORDERED: ATORVASTATIN CA80 MG PO (13:11)
[2022-05-22] MEDS ORDERED: LEVOTHYROXINE100 MCG PO (13:12)
[2022-05-22] MEDS ORDERED: METFORMIN HCL500 M1 PO (13:14)
--- NOTE | 2022-05-23 13:05 | EKG ---
[facility] [address] [facility] [place], [place] [address] Signed Atrial fibrillation with rapid ventricular response Nonspecific intraventricular conduction delay ST \T\ T wave abnormality, consider inferolateral ischemia Abnormal ECG No previous ECGs available Confirmed by SAHRA ABAD MD ([id number]) on 05/23/2022 1:05:15 PM Electronically Signed By: SAHRA ABAD MD 05/23/22 1305 PATIENT NAME: SIMÓN AVILA Electrocardiogram DATE OF : [birth year] PHYSICIAN: SAHRA ABAD MD REPORT #: [id number] REPORT IS CONFIDENTIAL AND NOT TO BE RELEASED WITHOUT AUTHORIZATION
--- NOTE | 2022-05-23 13:06 | EKG ---
[facility] [address] [facility] [place] [address] Signed Sinus tachycardia with 1st degree AV block with premature atrial complexes ST \T\ T wave abnormality, consider inferolateral ischemia Abnormal ECG When compared with ECG of 22-MAY-2022 09:22, (Unconfirmed) Sinus rhythm has replaced Atrial fibrillation Confirmed by SAHRA ABAD MD ([id number]) on 05/23/2022 1:05:56 PM Electronically Signed By: SAHRA ABAD MD 05/23/22 1306 PATIENT NAME: SIMÓN AVILA Electrocardiogram DATE OF : [birth year] PHYSICIAN: SAHRA ABAD MD REPORT #: [id number] REPORT IS CONFIDENTIAL AND NOT TO BE RELEASED WITHOUT AUTHORIZATION
== END 2022-05-22 19:00 | disposition home or self-care (01) ==
LOC: ED 09:17
DX: I48.91 Unspecified atrial fibrillation (principal); E11.40 Type 2 diabetes mellitus with diabetic neuropathy, unspecified; E03.9 Hypothyroidism, unspecified; F17.200 Nicotine dependence, unspecified, uncomplicated; Z20.822 Contact with and (suspected) exposure to COVID-19; Z79.899 Other long term (current) drug therapy; Z79.01 Long term (current) use of anticoagulants; Z79.4 Long term (current) use of insulin; Z79.82 Long term (current) use of aspirin; Z88.5 Allergy status to narcotic agent
CPT/HCPCS: 36415; 71045; 76775; 80053; 84484; 85025; 93005; 93010; 96374; 96376; 99285-25; A9270; C9803; J7030; U0003

== ENCOUNTER 2022-06-19 17:44 | Emergency (ER) | payer MEDICARE, OTHER ==
[~2022-06-19] VITALS: Ht 165.1 cm; Wt 57.6 kg
[~2022-06-19 17:44] MED LIST changes: +ATORVASTATIN CA80 MG PO; +CARVEDILOL25 MG PO; +JANTOVEN5 MG PO; +LEVOTHYROXINE100 MCG PO; +LISINOPRIL5 MG PO; +METFORMIN HCL500 M1 PO; +WARFARIN SODIUM4 MG PO
--- OUTSIDE RECORDS SUMMARY | 2022-06-19 17:46 | XMS ---
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 [place] VISIT COUNT (12 MO.) 5 [facility] TOTAL 5 NOTE: Visits indicate total known visits. ED/C VISIT TRACKING (12 MO.) 06/19/2022 17:44 [facility] [place] TYPE: Emergency COMPLAINT: - LOW BLOOD PRESSURE 05/22/2022 09:18 [facility] [place] TYPE: Emergency COMPLAINT: - CHEST PAIN DIAGNOSES: - Nicotine dependence, unspecified, uncomplicated - Hypothyroidism, unspecified - Allergy status to narcotic agent - care home (current) use of anticoagulants - Palpitations - Other [facility] (current) drug therapy - Type 2 diabetes mellitus with diabetic neuropathy, unspecified - care home (current) use of insulin - conference service coordinator (current) use of aspirin - Unspecified atrial fibrillation - Contact with and (suspected) exposure to COVID-19 05/20/2022 22:44 [facility] [place] TYPE: Emergency COMPLAINT: - [id number] DIAGNOSES: - Nicotine dependence, unspecified, uncomplicated - Other [facility] (current) drug therapy - Unspecified atrial fibrillation - Allergy status to narcotic agent - care home (current) use of insulin - Precordial pain - conference service coordinator (current) use of aspirin - Hypothyroidism, unspecified - Type 2 diabetes mellitus with diabetic neuropathy, unspecified - Contact with and (suspected) exposure to COVID-19 12/29/2021 08:58 [facility] [place] TYPE: Emergency COMPLAINT: - HIGH B/P, SOB DIAGNOSES: - Shortness of breath - conference service coordinator (current) use of aspirin - conference service coordinator (current) use of insulin - Hypothyroidism, unspecified - Other wash oil pump operator (current) drug therapy - Essential (primary) hypertension - care home (current) use of oral hypoglycemic drugs - Nicotine dependence, unspecified, uncomplicated - Type 2 diabetes mellitus with diabetic neuropathy, unspecified - Allergy status to narcotic agent 07/06/2021 07:12 [facility] [place] TYPE: Emergency COMPLAINT: - SOB, CHEST PAIN DIAGNOSES: - Other chest pain - care home (current) use of oral hypoglycemic drugs - Type 2 diabetes mellitus with diabetic neuropathy, unspecified - Hypothyroidism, unspecified - Nicotine dependence, unspecified, uncomplicated - Allergy status to narcotic agent - Gastro-esophageal reflux disease without esophagitis - care home (current) use of aspirin - care home (current) use of insulin - Other wash oil pump operator (current) drug therapy INPATIENT VISIT TRACKING (12 MO.) No inpatient visits to display in this time frame [id number]
[2022-06-19] MEDS ORDERED: DILTIAZEM 24HR180 M1 PO (20:55)
--- NOTE | 2022-06-21 16:40 | EKG ---
[facility] [address] [facility] [place] [address] Signed Atrial fibrillation with rapid ventricular rate Rightward axis Marked ST abnormality, possible inferior subendocardial injury Abnormal ECG When compared with ECG of 22-MAY-2022 12:11, Current undetermined rhythm precludes rhythm comparison, needs review Confirmed by SAHRA ABAD MD ([id number]) on 06/21/2022 4:40:41 PM Electronically Signed By: SAHRA ABAD MD 06/21/22 1640 PATIENT NAME: SIMÓN AVILA Electrocardiogram DATE OF : 48 PHYSICIAN: SAHRA ABAD MD REPORT #: [id number] REPORT IS CONFIDENTIAL AND NOT TO BE RELEASED WITHOUT AUTHORIZATION
== END 2022-06-19 21:10 | disposition home or self-care (01) ==
LOC: ED 17:44
DX: I48.91 Unspecified atrial fibrillation (principal); E03.9 Hypothyroidism, unspecified; E11.40 Type 2 diabetes mellitus with diabetic neuropathy, unspecified; F17.200 Nicotine dependence, unspecified, uncomplicated; Z88.5 Allergy status to narcotic agent; Z79.899 Other long term (current) drug therapy; Z79.4 Long term (current) use of insulin; Z79.01 Long term (current) use of anticoagulants; Z79.82 Long term (current) use of aspirin
CPT/HCPCS: 36415; 71045; 80053; 83735; 83880; 84484; 85025; 85379; 85610; 93005; 93010; 96365; 96375; 96376; 99285-25; A9270; J3475

== ENCOUNTER 2022-06-23 06:54 | Emergency (ER) | payer MEDICARE, OTHER ==
[~2022-06-23] VITALS: Ht 165.1 cm; Wt 59.0 kg
[~2022-06-23 06:54] MED LIST changes: +DILTIAZEM 24HR180 M1 PO
--- OUTSIDE RECORDS SUMMARY | 2022-06-23 06:56 | XMS ---
PreManage Notification: SIMÓN AVILA Security Internal Communications Intern Events No recent Security Events currently on file CRITERIA MET - [facility] - 2 Visits in 30 Days CARE PROVIDERS AGNIESZKA LUNA Physician Homoeopath 01/07/2020-Current PHONE: [phone] Juan has no Care Guidelines for this patient. [place] VISIT COUNT (12 MO.) 6 [facility] TOTAL 6 NOTE: Visits indicate total known visits. ED/C VISIT TRACKING (12 MO.) 06/23/2022 06:54 [facility] [place] TYPE: Emergency COMPLAINT: - CHEST DISCOMFORT, WEAKNESS 06/19/2022 17:44 [facility] [place] TYPE: Emergency COMPLAINT: - LOW BLOOD PRESSURE DIAGNOSES: - Precordial pain - Other custodial (current) drug therapy - Hypothyroidism, unspecified - Nicotine dependence, unspecified, uncomplicated - Type 2 diabetes mellitus with diabetic neuropathy, unspecified - Unspecified atrial fibrillation - Allergy status to narcotic agent - skilled nursing (current) use of anticoagulants - intermediate card tender (current) use of insulin - skilled nursing (current) use of aspirin 05/22/2022 09:18 [facility] [place] TYPE: Emergency COMPLAINT: - CHEST PAIN DIAGNOSES: - skilled nursing (current) use of aspirin - Unspecified atrial fibrillation - Contact with and (suspected) exposure to COVID-19 - Nicotine dependence, unspecified, uncomplicated - Hypothyroidism, unspecified - Allergy status to narcotic agent - skilled nursing (current) use of anticoagulants - Palpitations - Other custodial (current) drug therapy - Type 2 diabetes mellitus with diabetic neuropathy, unspecified - skilled nursing (current) use of insulin 05/20/2022 22:44 [facility] [place] TYPE: Emergency COMPLAINT: - [id number] DIAGNOSES: - Hypothyroidism, unspecified - Type 2 diabetes mellitus with diabetic neuropathy, unspecified - Contact with and (suspected) exposure to COVID-19 - Nicotine dependence, unspecified, uncomplicated - Other terminal worker (current) drug therapy - Unspecified atrial fibrillation - Allergy status to narcotic agent - intermediate card tender (current) use of insulin - Precordial pain - skilled nursing (current) use of aspirin 12/29/2021 08:58 [facility] [place] TYPE: Emergency COMPLAINT: - HIGH B/P, SOB DIAGNOSES: - Nicotine dependence, unspecified, uncomplicated - Type 2 diabetes mellitus with diabetic neuropathy, unspecified - Allergy status to narcotic agent - Shortness of breath - intermediate card tender (current) use of aspirin - skilled nursing (current) use of insulin - Hypothyroidism, unspecified - Other custodial (current) drug therapy - Essential (primary) hypertension - intermediate card tender (current) use of oral hypoglycemic drugs 07/06/2021 07:[address] [facility] [place] TYPE: Emergency COMPLAINT: - SOB, CHEST PAIN DIAGNOSES: - skilled nursing (current) use of aspirin - skilled nursing (current) use of insulin - Other custodial (current) drug therapy - Other chest pain - skilled nursing (current) use of oral hypoglycemic drugs - Type 2 diabetes mellitus with diabetic neuropathy, unspecified - Hypothyroidism, unspecified - Nicotine dependence, unspecified, uncomplicated - Allergy status to narcotic agent - Gastro-esophageal reflux disease without esophagitis INPATIENT VISIT TRACKING (12 MO.) No inpatient visits to display in this time frame [id number]
--- NOTE | 2022-06-24 13:30 | EKG ---
[facility] [address] [place] [address] Signed Atrial fibrillation with rapid ventricular response Rightward axis Minimal voltage criteria for LVH, may be normal variant ( [place] product ) ST \T\ T wave abnormality, consider inferolateral ischemia Abnormal ECG When compared with ECG of 19-JUN-2022 17:53, Previous ECG has undetermined rhythm, needs review Confirmed by SAHRA ABAD MD ([id number]) on 06/24/2022 1:29:46 PM Electronically Signed By: SAHRA ABAD MD 06/24/22 1330 PATIENT NAME: SIMÓN AVILA Electrocardiogram DATE OF : 48 PHYSICIAN: SAHRA ABAD MD REPORT #: [id number] REPORT IS CONFIDENTIAL AND NOT TO BE RELEASED WITHOUT AUTHORIZATION
--- NOTE | 2022-06-24 13:30 | EKG ---
[facility] [address] [facility] [place], [place] [address] Signed Suspect arm lead reversal, interpretation assumes no reversal Sinus tachycardia with 1st degree AV block with premature supraventricular complexes Rightward axis ST \T\ T wave abnormality, consider inferolateral ischemia Abnormal ECG No previous ECGs available Confirmed by SAHRA ABAD MD ([id number]) on 06/24/2022 1:30:16 PM Electronically Signed By: SAHRA ABAD MD 06/24/22 1330 PATIENT NAME: SIMÓN AVILA Electrocardiogram DATE OF : [birth year] PHYSICIAN: SAHRA ABAD MD REPORT #: [id number] REPORT IS CONFIDENTIAL AND NOT TO BE RELEASED WITHOUT AUTHORIZATION
== END 2022-06-23 11:38 | disposition home or self-care (01) ==
LOC: ED 06:54
DX: I48.91 Unspecified atrial fibrillation (principal); N17.9 Acute kidney failure, unspecified; E11.9 Type 2 diabetes mellitus without complications; E03.9 Hypothyroidism, unspecified; E11.40 Type 2 diabetes mellitus with diabetic neuropathy, unspecified; F17.200 Nicotine dependence, unspecified, uncomplicated; Z88.5 Allergy status to narcotic agent; Z79.899 Other long term (current) drug therapy; Z79.4 Long term (current) use of insulin; Z79.01 Long term (current) use of anticoagulants; Z79.84 Long term (current) use of oral hypoglycemic drugs; Z79.82 Long term (current) use of aspirin
CPT/HCPCS: 36415; 80048; 80053; 83735; 83880; 84484; 85025; 85610; 93005; 93010; 96361; 96374; 96375; 99285-25; J1815; J2405; J7030

== ENCOUNTER 2022-07-03 21:00 | Emergency (ER) | payer MEDICARE, OTHER ==
[~2022-07-03] VITALS: Ht 165.1 cm; Wt 62.6 kg
--- OUTSIDE RECORDS SUMMARY | 2022-07-03 21:02 | XMS ---
PreManage Notification: SIMÓN AVILA Security Deputy Brand Inspector Events No recent Security Events currently on file CRITERIA MET - [facility] - 2 Visits in 30 Days CARE PROVIDERS AGNIESZKA LUNA Physician Occupational Therapist 01/07/2020-Current PHONE: [phone] Juan has no Care Guidelines for this patient. [place] VISIT COUNT (12 MO.) 7 [facility] TOTAL 7 NOTE: Visits indicate total known visits. ED/UCC VISIT TRACKING (12 MO.) 07/03/2022 21:00 [facility] [place] TYPE: Emergency COMPLAINT: - WEAKNESS 06/23/2022 06:54 [facility] [place] TYPE: Emergency COMPLAINT: - CHEST DISCOMFORT, WEAKNESS DIAGNOSES: - Nicotine dependence, unspecified, uncomplicated - Type 2 diabetes mellitus without complications - Hypothyroidism, unspecified - Other termination clerk (current) drug therapy - Allergy status to narcotic agent - [facility] (current) use of oral hypoglycemic drugs - Type 2 diabetes mellitus with diabetic neuropathy, unspecified - Chest pain, unspecified - Acute kidney failure, unspecified - Unspecified atrial fibrillation - watermelon harvesting supervisor (current) use of anticoagulants - watermelon harvesting supervisor (current) use of aspirin - [facility] (current) use of insulin 06/19/2022 17:44 [facility] [place] TYPE: Emergency COMPLAINT: - LOW BLOOD PRESSURE DIAGNOSES: - Allergy status to narcotic agent - [facility] (current) use of anticoagulants - [facility] (current) use of insulin - watermelon harvesting supervisor (current) use of aspirin - Precordial pain - Other termination clerk (current) drug therapy - Hypothyroidism, unspecified - Nicotine dependence, unspecified, uncomplicated - Type 2 diabetes mellitus with diabetic neuropathy, unspecified - Unspecified atrial fibrillation 05/22/2022 09:18 [facility] [place] TYPE: Emergency COMPLAINT: - CHEST PAIN DIAGNOSES: - [facility] (current) use of anticoagulants - Palpitations - Other termination clerk (current) drug therapy - Type 2 diabetes mellitus with diabetic neuropathy, unspecified - [facility] (current) use of insulin - watermelon harvesting supervisor (current) use of aspirin - Unspecified atrial fibrillation - Contact with and (suspected) exposure to COVID-19 - Nicotine dependence, unspecified, uncomplicated - Hypothyroidism, unspecified - Allergy status to narcotic agent 05/20/2022 22:44 [facility] [place] TYPE: Emergency COMPLAINT: - [id number] DIAGNOSES: - Allergy status to narcotic agent - watermelon harvesting supervisor (current) use of insulin - Precordial pain - watermelon harvesting supervisor (current) use of aspirin - Hypothyroidism, unspecified - Type 2 diabetes mellitus with diabetic neuropathy, unspecified - Contact with and (suspected) exposure to COVID-19 - Nicotine dependence, unspecified, uncomplicated - Other [facility] (current) drug therapy - Unspecified atrial fibrillation 12/29/2021 08:58 [facility] [place] TYPE: Emergency COMPLAINT: - HIGH B/P, SOB DIAGNOSES: - Hypothyroidism, unspecified - Other termination clerk (current) drug therapy - Essential (primary) hypertension - watermelon harvesting supervisor (current) use of oral hypoglycemic drugs - Nicotine dependence, unspecified, uncomplicated - Type 2 diabetes mellitus with diabetic neuropathy, unspecified - Allergy status to narcotic agent - Shortness of breath - watermelon harvesting supervisor (current) use of aspirin - [facility] (current) use of insulin 07/06/2021 07:12 [facility] TYPE: Emergency COMPLAINT: - SOB, CHEST PAIN DIAGNOSES: - Hypothyroidism, unspecified - Nicotine dependence, unspecified, uncomplicated - Allergy status to narcotic agent - Gastro-esophageal reflux disease without esophagitis - watermelon harvesting supervisor (current) use of aspirin - [facility] (current) use of insulin - Other termination clerk (current) drug therapy - Other chest pain - watermelon harvesting supervisor (current) use of oral hypoglycemic drugs - Type 2 diabetes mellitus with diabetic neuropathy, unspecified INPATIENT VISIT TRACKING (12 MO.) No inpatient visits to display in this time frame [id number]
--- NOTE | 2022-07-04 07:49 | EKG ---
[facility] [address] [facility] [place] [address] Signed Accelerated Junctional rhythm Rightward axis ST \T\ T wave abnormality, consider inferior ischemia Abnormal ECG When compared with ECG of 23-JUN-2022 07:25, Junctional rhythm has replaced Sinus rhythm T wave inversion no longer evident in Anterior leads Confirmed by NITISH LY MD ([id number]) on 07/04/2022 7:49:05 AM Electronically Signed By: NITISH LY MD 07/04/22 0749 PATIENT NAME: SIMÓN AVILA Electrocardiogram DATE OF : 48 PHYSICIAN: NITISH LY MD REPORT #: [id number] REPORT IS CONFIDENTIAL AND NOT TO BE RELEASED WITHOUT AUTHORIZATION
--- NOTE | 2022-07-04 07:52 | EKG ---
[facility] [address] [facility] [place] [facility] [place] [address] Signed Accelerated Junctional rhythm Rightward axis Nonspecific ST and T wave abnormality Prolonged QT Abnormal ECG When compared with ECG of 03-JUL-2022 21:05, (Unconfirmed) T wave inversion no longer evident in Inferior leads Nonspecific T wave abnormality has replaced inverted T waves in Lateral leads QT has lengthened Confirmed by NITISH LY MD ([id number]) on 07/04/2022 7:51:47 AM Electronically Signed By: NITISH LY MD 07/04/22 0752 PATIENT NAME: SIMÓN AVILA Electrocardiogram DATE OF : 48 PHYSICIAN: NITISH LY MD REPORT #: [id number] REPORT IS CONFIDENTIAL AND NOT TO BE RELEASED WITHOUT AUTHORIZATION
== END 2022-07-03 23:48 | disposition home or self-care (01) ==
LOC: ED 21:00
DX: I49.9 Cardiac arrhythmia, unspecified (principal); E11.9 Type 2 diabetes mellitus without complications; E03.9 Hypothyroidism, unspecified; E11.40 Type 2 diabetes mellitus with diabetic neuropathy, unspecified; I48.91 Unspecified atrial fibrillation; F17.200 Nicotine dependence, unspecified, uncomplicated; Z79.899 Other long term (current) drug therapy; Z88.5 Allergy status to narcotic agent; Z79.4 Long term (current) use of insulin; Z79.84 Long term (current) use of oral hypoglycemic drugs; Z79.01 Long term (current) use of anticoagulants; Z79.82 Long term (current) use of aspirin
CPT/HCPCS: 36415; 71045; 80053; 83735; 83880; 84484; 85025; 85610; 93005; 93010; 99285-25

== ENCOUNTER 2022-07-05 19:00 | Emergency (ER) | payer MEDICARE, OTHER ==
[~2022-07-05] VITALS: Ht 165.1 cm; Wt 62.6 kg
--- OUTSIDE RECORDS SUMMARY | 2022-07-05 19:03 | XMS ---
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 Timmy VISIT COUNT (12 MO.) [address] [place] [address] TOTAL 8 NOTE: Visits indicate total known visits. ED/UCC VISIT TRACKING (12 MO.) 07/05/2022 19:01 [facility] TYPE: Emergency COMPLAINT: - DIZZINESS 07/03/2022 21:00 [facility] [place] TYPE: Emergency COMPLAINT: - WEAKNESS 06/23/2022 06:54 [facility] TYPE: Emergency COMPLAINT: - CHEST DISCOMFORT, WEAKNESS DIAGNOSES: - termite treater (current) use of aspirin - termite treater (current) use of insulin - Nicotine dependence, unspecified, uncomplicated - Type 2 diabetes mellitus without complications - Hypothyroidism, unspecified - Other roasterman (current) drug therapy - Allergy status to narcotic agent - long-term (current) use of oral hypoglycemic drugs - Type 2 diabetes mellitus with diabetic neuropathy, unspecified - Chest pain, unspecified - Acute kidney failure, unspecified - Unspecified atrial fibrillation - long-term (current) use of anticoagulants 06/19/2022 17:44 [facility] TYPE: Emergency COMPLAINT: - LOW BLOOD PRESSURE DIAGNOSES: - Type 2 diabetes mellitus with diabetic neuropathy, unspecified - Unspecified atrial fibrillation - Allergy status to narcotic agent - termite treater (current) use of anticoagulants - long-term (current) use of insulin - long-term (current) use of aspirin - Precordial pain - Other roasterman (current) drug therapy - Hypothyroidism, unspecified - Nicotine dependence, unspecified, uncomplicated 05/22/2022 09:18 [facility] TYPE: Emergency COMPLAINT: - CHEST PAIN DIAGNOSES: - Hypothyroidism, unspecified - Allergy status to narcotic agent - long-term (current) use of anticoagulants - Palpitations - [facility] ([facility] drug therapy - Type 2 diabetes mellitus with diabetic neuropathy, unspecified - termite treater (current) use of insulin - termite treater (current) use of aspirin - Unspecified atrial fibrillation - Contact with and (suspected) exposure to COVID-19 - Nicotine dependence, unspecified, uncomplicated 05/20/2022 22:44 [facility] TYPE: Emergency COMPLAINT: - [id number] DIAGNOSES: - Other roasterman (current) drug therapy - Unspecified atrial fibrillation - Allergy status to narcotic agent - long-term (current) use of insulin - Precordial pain - long-term (current) use of aspirin - Hypothyroidism, unspecified - Type 2 diabetes mellitus with diabetic neuropathy, unspecified - Contact with and (suspected) exposure to COVID-19 - Nicotine dependence, unspecified, uncomplicated 12/29/2021 08:58 [facility] TYPE: Emergency COMPLAINT: - HIGH B/P, SOB DIAGNOSES: - long-term (current) use of aspirin - long-term (current) use of insulin - Hypothyroidism, unspecified - [facility] ([facility] drug therapy - Essential (primary) hypertension - termite treater (current) use of oral hypoglycemic drugs - Nicotine dependence, unspecified, uncomplicated - Type 2 diabetes mellitus with diabetic neuropathy, unspecified - Allergy status to narcotic agent - Shortness of breath 07/06/2021 07:12 [facility] TYPE: Emergency COMPLAINT: - SOB, CHEST PAIN DIAGNOSES: - long-term (current) use of oral hypoglycemic drugs - Type 2 diabetes mellitus with diabetic neuropathy, unspecified - Hypothyroidism, unspecified - Nicotine dependence, unspecified, uncomplicated - Allergy status to narcotic agent - Gastro-esophageal reflux disease without esophagitis - long-term (current) use of aspirin - termite treater (current) use of insulin - Other roasterman (current) drug therapy - Other chest pain INPATIENT VISIT TRACKING (12 MO.) No inpatient visits to display in this time frame [id number]
--- NOTE | 2022-07-07 16:12 | EKG ---
[facility] [address] [facility] [place] [address] Signed Atrial fibrillation with rapid ventricular rate Rightward axis Septal infarct , age undetermined Marked ST abnormality, possible inferior subendocardial injury Abnormal ECG When compared with ECG of 03-JUL-2022 22:54, Significant changes have occurred Confirmed by SAHRA ABAD MD ([id number]) on 07/07/2022 4:12:42 PM Electronically Signed By: SAHRA ABAD MD 07/07/22 1612 PATIENT NAME: SIMÓN AVILA Electrocardiogram DATE OF : 48 PHYSICIAN: SAHRA ABAD MD REPORT #: [id number] REPORT IS CONFIDENTIAL AND NOT TO BE RELEASED WITHOUT AUTHORIZATION
--- NOTE | 2022-07-07 16:15 | EKG ---
[facility] [address] [facility] [place], [place] [address] Signed Ectopoic atrial rhythm with ventricular bigeminy Inferior infarct , age undetermined ST \T\ T wave abnormality, consider lateral ischemia Abnormal ECG When compared with ECG of 05-JUL-2022 19:23, (Unconfirmed) Significant changes have occurred Confirmed by SAHRA ABAD MD (255) on 07/07/2022 4:15:02 PM Electronically Signed By: SAHRA ABAD MD 07/07/22 1615 PATIENT NAME: SIMÓN AVILA Electrocardiogram DATE OF : 48 PHYSICIAN: SAHRA ABAD MD REPORT #: [id number] REPORT IS CONFIDENTIAL AND NOT TO BE RELEASED WITHOUT AUTHORIZATION
== END 2022-07-06 08:10 | disposition home or self-care (01) ==
LOC: ED 19:00
DX: I48.91 Unspecified atrial fibrillation (principal); I50.9 Heart failure, unspecified; I49.5 Sick sinus syndrome; E11.9 Type 2 diabetes mellitus without complications; E03.9 Hypothyroidism, unspecified; E11.40 Type 2 diabetes mellitus with diabetic neuropathy, unspecified; F17.200 Nicotine dependence, unspecified, uncomplicated; Z88.5 Allergy status to narcotic agent; Z79.899 Other long term (current) drug therapy; Z79.4 Long term (current) use of insulin; Z79.84 Long term (current) use of oral hypoglycemic drugs; Z79.01 Long term (current) use of anticoagulants; Z79.82 Long term (current) use of aspirin; Z20.822 Contact with and (suspected) exposure to COVID-19
CPT/HCPCS: 36415; 71045; 80048; 80053; 81001; 83735; 83880; 84443; 84484; 85025; 85610; 87502; 93005; 93010; 96374; 96375; 99284-25; J0282; J1720; J1940; J2405; J3490; U0003

== ENCOUNTER 2022-07-07 14:57 | Emergency (ER) | payer MEDICARE, OTHER ==
[~2022-07-07] VITALS: Ht 165.1 cm; Wt 62.6 kg
--- OUTSIDE RECORDS SUMMARY | 2022-07-07 15:00 | XMS ---
PreManage Notification: SIMÓN AVILA Security Sales Support Engineer Events No recent Security Events currently on file CRITERIA MET - 6 ED Visits in 6 Months - [facility] - 2 Visits in 30 Days CARE PROVIDERS AGNIESZKA LUNA Physician Lead Java J2Ee Developer 01/07/2020-Current PHONE: [phone] Juan has no Care Guidelines for this patient. Timmy VISIT COUNT (12 MO.) [address] [place] [address] TOTAL 8 NOTE: Visits indicate total known visits. ED/UCC VISIT TRACKING (12 MO.) 07/07/2022 14:57 [facility] [place] TYPE: Emergency COMPLAINT: - VOMITING, ABD PAIN 07/05/2022 19:01 [facility] [place] TYPE: Emergency COMPLAINT: - DIZZINESS 07/03/2022 21:00 [facility] [place] TYPE: Emergency COMPLAINT: - WEAKNESS DIAGNOSES: - Nicotine dependence, unspecified, uncomplicated - Unspecified atrial fibrillation - longterm (current) use of insulin - pensions retirement plan specialist (current) use of anticoagulants - Other retirement (current) drug therapy - Hypothyroidism, unspecified - pensions retirement plan specialist (current) use of aspirin - Cardiac arrhythmia, unspecified - Type 2 diabetes mellitus with diabetic neuropathy, unspecified - Type 2 diabetes mellitus without complications - Allergy status to narcotic agent - pensions retirement plan specialist (current) use of oral hypoglycemic drugs 06/23/2022 06:54 [facility] [place] TYPE: Emergency COMPLAINT: - CHEST DISCOMFORT, WEAKNESS DIAGNOSES: - longterm (current) use of insulin - Nicotine dependence, unspecified, uncomplicated - Type 2 diabetes mellitus without complications - Hypothyroidism, unspecified - Other main line assembler (current) drug therapy - Allergy status to narcotic agent - longterm (current) use of oral hypoglycemic drugs - Type 2 diabetes mellitus with diabetic neuropathy, unspecified - Chest pain, unspecified - Acute kidney failure, unspecified - Unspecified atrial fibrillation - pensions retirement plan specialist (current) use of anticoagulants - longterm (current) use of aspirin 06/19/2022 17:44 [facility] [place] TYPE: Emergency COMPLAINT: - LOW BLOOD PRESSURE DIAGNOSES: - Unspecified atrial fibrillation - Allergy status to narcotic agent - pensions retirement plan specialist (current) use of anticoagulants - pensions retirement plan specialist (current) use of insulin - longterm (current) use of aspirin - Precordial pain - Other retirement (current) drug therapy - Hypothyroidism, unspecified - Nicotine dependence, unspecified, uncomplicated - Type 2 diabetes mellitus with diabetic neuropathy, unspecified 05/22/2022 09:18 [facility] [place] TYPE: Emergency COMPLAINT: - CHEST PAIN DIAGNOSES: - Allergy status to narcotic agent - longterm (current) use of anticoagulants - Palpitations - Other main line assembler (current) drug therapy - Type 2 diabetes mellitus with diabetic neuropathy, unspecified - pensions retirement plan specialist (current) use of insulin - longterm (current) use of aspirin - Unspecified atrial fibrillation - Contact with and (suspected) exposure to COVID-19 - Nicotine dependence, unspecified, uncomplicated - Hypothyroidism, unspecified 05/20/2022 22:44 [facility] [place] TYPE: Emergency COMPLAINT: - [id number] DIAGNOSES: - Unspecified atrial fibrillation - Allergy status to narcotic agent - longterm (current) use of insulin - Precordial pain - longterm (current) use of aspirin - Hypothyroidism, unspecified - Type 2 diabetes mellitus with diabetic neuropathy, unspecified - Contact with and (suspected) exposure to COVID-19 - Nicotine dependence, unspecified, uncomplicated - Other retirement (current) drug therapy 12/29/2021 08:58 [facility] [place] TYPE: Emergency COMPLAINT: - HIGH B/P, SOB DIAGNOSES: - longterm (current) use of insulin - Hypothyroidism, unspecified - Other main line assembler (current) drug therapy - Essential (primary) hypertension - longterm (current) use of oral hypoglycemic drugs - Nicotine dependence, unspecified, uncomplicated - Type 2 diabetes mellitus with diabetic neuropathy, unspecified - Allergy status to narcotic agent - Shortness of breath - longterm (current) use of aspirin INPATIENT VISIT TRACKING (12 MO.) No inpatient visits to display in this time frame [email or web address]
--- NOTE | 2022-07-07 16:17 | EKG ---
[facility] [address] [facility] [place] [address] Signed Suspect arm lead reversal, interpretation assumes no reversal Sinus rhythm with 1st degree AV block Rightward axis Low voltage QRS Nonspecific ST and T wave abnormality Abnormal ECG When compared with ECG of 05-JUL-2022 23:09, (Unconfirmed) Significant changes have occurred Confirmed by SAHRA ABAD MD (255) on 07/07/2022 4:17:36 PM Electronically Signed By: SAHRA ABAD MD 07/07/22 1617 PATIENT NAME: SIMÓN AVILA Electrocardiogram DATE OF : 48 PHYSICIAN: SAHRA ABAD MD REPORT #: [id number] REPORT IS CONFIDENTIAL AND NOT TO BE RELEASED WITHOUT AUTHORIZATION
--- NOTE | 2022-07-07 16:17 | EKG ---
[facility] [address] [facility] [place], [place] [address] Signed Atrial fibrillation with rapid ventricular response with premature ventricular or aberrantly conducted complexes Rightward axis Septal infarct , age undetermined ST \T\ T wave abnormality, consider inferolateral ischemia Abnormal ECG No previous ECGs available Confirmed by SAHRA ABAD MD (255) on 07/07/2022 4:17:23 PM Electronically Signed By: SAHRA ABAD MD 07/07/22 1617 PATIENT NAME: SIMÓN AVILA Electrocardiogram DATE OF : [birth year] PHYSICIAN: SAHRA ABAD MD REPORT #: [id number] REPORT IS CONFIDENTIAL AND NOT TO BE RELEASED WITHOUT AUTHORIZATION
--- NOTE | 2022-07-07 16:17 | EKG ---
[facility] [address] [facility] [place], [place] [address] Signed Supraventricular tachycardia Rightward axis Septal infarct , age undetermined ST \T\ T wave abnormality, consider inferolateral ischemia Abnormal ECG No previous ECGs available Confirmed by SAHRA ABAD MD (255) on 07/07/2022 4:17:17 PM Electronically Signed By: SAHRA ABAD MD 07/07/22 1617 PATIENT NAME: SIMÓN AVILA Electrocardiogram DATE OF : [birth year] PHYSICIAN: SAHRA ABAD MD REPORT #: [id number] REPORT IS CONFIDENTIAL AND NOT TO BE RELEASED WITHOUT AUTHORIZATION
--- NOTE | 2022-07-11 18:52 | EKG ---
[facility] [address] [facility] [place] [address] Signed Accelerated Junctional rhythm in a pattern of bigeminy Rightward axis Low voltage QRS Septal infarct , age undetermined Abnormal ECG Confirmed by Tata Espinal MD () on 07/11/2022 6:52:33 PM Electronically Signed By: TATA ESPINAL MD 07/11/221851 PATIENT NAME: SIMÓN AVILA Electrocardiogram DATE OF : 48 PHYSICIAN: TATA ESPINAL MD REPORT #: [id number] REPORT IS CONFIDENTIAL AND NOT TO BE RELEASED WITHOUT AUTHORIZATION
== END 2022-07-07 17:06 | disposition short-term general hospital (02) ==
LOC: ED 14:57
DX: I48.91 Unspecified atrial fibrillation (principal); I95.9 Hypotension, unspecified; E87.5 Hyperkalemia; N17.9 Acute kidney failure, unspecified; E11.40 Type 2 diabetes mellitus with diabetic neuropathy, unspecified; E03.9 Hypothyroidism, unspecified; F17.200 Nicotine dependence, unspecified, uncomplicated; Z88.5 Allergy status to narcotic agent; Z79.899 Other long term (current) drug therapy; Z79.4 Long term (current) use of insulin; Z79.84 Long term (current) use of oral hypoglycemic drugs; Z79.01 Long term (current) use of anticoagulants; Z79.82 Long term (current) use of aspirin
CPT/HCPCS: 36415; 51702; 80053; 84484; 85025; 85610; 87502; 93005; 93010; 99285-25; J0153; J0610; J1815; J2405; J7030; U0003

== ENCOUNTER 2024-02-15 16:01 | Emergency (ER) | payer MEDICARE, OTHER ==
[~2024-02-15] VITALS: Ht 167.6 cm; Wt 53.2 kg
[~2024-02-15 16:01] MED LIST changes: +AMIODARONE HCL200 MG PO; +AMLODIPINE BESYL5 MG PO; +ANASTROZOLE1 MG PO; +BASAGLAR K100 UNIT/1 SUB-Q; +DULOXETINE HCL30 MG PO; +DULOXETINE HCL60 MG PO; +FIASP 100100 UNIT/1 SUB-Q; +FUROSEMIDE40 MG PO; +GABAPENTIN600 MG PO; +HYDROCODON-ACE1 EA10 PO; +IBUPROFEN600 MG PO; +JARDIANCE10 MG PO; +LISINOPRIL2.5 MG PO; +LO-DOSE ASPIRIN81 MG PO; +METOPROLOL SUCC25 MG PO; +NOVOLOG FL100 UNIT/1 SUB-Q; +OFIRMEV1000 MG/10 IV; +OMEPRAZOLE20 MG PO; +POTASSIUM CHLO10 ME2 PO; +SULFAMETHOXAZO1 EAC1 PO; +TOUJEO MAX300 UNIT/1 SUB-Q; +TYLENOL EXTRA500 MG PO; +WARFARIN SODIUM2 MG PO; +ZESTRIL10 MG PO
--- OUTSIDE RECORDS SUMMARY | 2024-02-15 16:07 | XMS ---
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 [place] VISIT COUNT (12 MO.) 3 [facility] [place] LeahStefanieCeceliaStefanie ([place]) TOTAL 4 NOTE: Visits indicate total known visits. ED/UCC VISIT TRACKING (12 MO.) 02/15/2024 16:01 [facility] [place] TYPE: Emergency COMPLAINT: - VOMITING 07/24/2023 17:05 [facility] [place] TYPE: Emergency COMPLAINT: - LOW BLOOD PRESSURE 07/18/2023 07:25 [facility] TYPE: Emergency COMPLAINT: - HEART ISSUES 03/22/2023 13:46 [facility] Debbie MALLOY ([place]) TYPE: Emergency DIAGNOSES: - Essential (primary) hypertension - high bp - Hypertension INPATIENT VISIT TRACKING (12 MO.) 07/24/2023 17:06 [facility] [place] TYPE: Observation COMPLAINT: - BRADYCARDIA DIAGNOSES: - Acute kidney failure, unspecified - Allergy status to narcotic agent - Bradycardia, unspecified - Dizziness and giddiness - Heart failure, unspecified - Hormone replacement therapy - Hypertensive heart disease with heart failure - Hypothyroidism, unspecified - senior care (current) use of anticoagulants - senior care (current) use of insulin - Nicotine dependence, cigarettes, uncomplicated - Other [facility]p (current) drug therapy - Personal history of COVID-19 - Pure hypercholesterolemia, unspecified - Type 2 diabetes mellitus with diabetic neuropathy, unspecified - Unspecified atrial fibrillation 07/18/2023 09:[address] [facility] [place] TYPE: Critical Care COMPLAINT: - ACUTE DECOMPENSATED CHF DIAGNOSES: - Abnormal coagulation profile - Abnormal coagulation profile - Acquired absence of both cervix and uterus - Acquired absence of both cervix and uterus - Acute on chronic systolic (congestive) heart failure - Acute respiratory failure with hypoxia - Acute respiratory failure with hypoxia - Allergy status to narcotic agent - Allergy status to narcotic agent - Chronic kidney disease, stage 3b - Chronic kidney disease, stage 3b - Heart failure, unspecified - Hormone replacement therapy - Hormone replacement therapy - Hyperkalemia - Hyperkalemia - Hypothyroidism, unspecified - Hypothyroidism, unspecified - Hypovolemia - Hypovolemia - senior care (current) use of anticoagulants - senior care (current) use of anticoagulants - rn long term care (current) use of aspirin - senior care (current) use of aspirin - rn long term care (current) use of insulin - rn long term care (current) use of insulin - Nicotine dependence, cigarettes, uncomplicated - Nicotine dependence, cigarettes, uncomplicated - Other fecal abnormalities - Other fecal abnormalities - Other specified postprocedural states - Other specified postprocedural states - Presence of aortocoronary bypass graft - Presence of aortocoronary bypass graft - Presence of prosthetic heart valve - Presence of prosthetic heart valve - Type 2 diabetes mellitus with diabetic chronic kidney disease - Type 2 diabetes mellitus with diabetic chronic kidney disease - Type 2 diabetes mellitus with diabetic neuropathy, unspecified - Type 2 diabetes mellitus with diabetic neuropathy, unspecified - Unspecified atrial fibrillation - Unspecified atrial fibrillation [id number]
[2024-02-15] MEDS ORDERED: ondansetron HCL 4 MG/2 ML VIAL IV ONE (18:45)
[2024-02-15] MEDS ORDERED: SODIUM CHLORIDE 0.9% 1,000 ML IV ONE (18:45)
[2024-02-15 19:06] LABS: BILIRUBIN, URINE NEGATIVE (negative); BLOOD/HGB, URINE NEGATIVE (Negative); KETONE, URINE NEGATIVE (Negative); LEUK ESTERASE, URINE NEGATIVE (negative); NITRITE, URINE NEGATIVE (negative); PH, URINE 5.5 (5-7)
[2024-02-15 19:09] LABS: BASOPHILS 0.3 % (0-2); EOSINOPHILS 0.6 % (0-6); HEMATOCRIT 37.6 % (35.0-50.0); HEMOGLOBIN 12.5 g/dL (12.0-18.0); LYMPHOCYTES 4.4 % (24-44); MCH 28.5 (27-36); MCHC 33.2 g/dl (30-36); MONOCYTES 5.4 % (0-12); NEUTROPHILS 89.3 % (39-80); PLATELET COUNT 129 K/uL (140-440); RBC 4.37 M/ul (4.3-5.7); RDW 17.7 (10.5-15.0)
[2024-02-15 19:23] LABS: ALBUMIN 3.6 g/dL (3.4-5.0); ALBUMIN/GLOBULIN RATIO 1.09 (1.1-2.4); BILIRUBIN, TOTAL 0.4 ng/dL (0.2-1.0); BUN/CREATININE RATIO 15.03 (6.0-28.6); CALCIUM 8.9 mg/dL (8.5-10.1); CREATININE, SERUM 1.33 mg/dL (0.55-1.02); PROTEIN, TOTAL 6.9 g/dL (6.4-8.2)
[2024-02-15 19:57] LABS: INFLUENZA B NAA NEGATIVE (NEGATIVE); RESPIRATORY SYNCYTIAL VIR NAA NEGATIVE (NEGATIVE)
[2024-02-15] MEDS ORDERED: LACTATED RINGER'S 1,000 ML IV ONE (21:00)
[2024-02-15 23:30] VITALS: BP 129/50
--- NOTE | 2024-02-17 20:49 | EKG ---
[facility] [address] [facility] [place], [place] [address] Signed Normal sinus rhythm Nonspecific T wave abnormality Abnormal ECG No previous ECGs available Confirmed by Landy Haji MD ([id number]) on 02/17/2024 8:48:56 PM Electronically Signed By: LANDY HAJI DO 02/17/242048 PATIENT NAME: SIMÓN AVILA Electrocardiogram DATE OF : 48 PHYSICIAN: LANDY HAJI DO REPORT #: [id number] REPORT IS CONFIDENTIAL AND NOT TO BE RELEASED WITHOUT AUTHORIZATION
== END 2024-02-15 23:30 | disposition home or self-care (01) ==
LOC: ED 16:01
PROVIDERS: Emergency Medicine
DX: R10.32 Left lower quadrant pain (principal); E86.0 Dehydration; E11.40 Type 2 diabetes mellitus with diabetic neuropathy, unspecified; E03.9 Hypothyroidism, unspecified; I48.91 Unspecified atrial fibrillation; F17.200 Nicotine dependence, unspecified, uncomplicated; Z79.82 Long term (current) use of aspirin; Z79.4 Long term (current) use of insulin; Z79.01 Long term (current) use of anticoagulants; Z79.890 Hormone replacement therapy; Z79.899 Other long term (current) drug therapy
CPT/HCPCS: 36415; 71045; 74177; 80053; 81003; 83605; 83690; 83880; 84484; 85025; 87502; 93005; 93010; 96361; 99284-25; J2405; J7030; J7121; U0002